=== PATIENT | female | born 1995 | race Caucasian/White ===

== ENCOUNTER 2022-06-24 10:49 | Emergency (ER) | payer MEDICAID, SELFPAY ==
[2022-06-24 10:50] VITALS: BP 112/71; PULSE 75; RESP 18; TEMP 36.4; O2SAT 97; BMI 46.3
--- NOTE | 2022-06-24 11:28 | US_ITS ---
STUDY: ULTRASOUND BREAST - RIGHT REASON FOR EXAM: Female, 26 years old. Cellulitis. Pain. TECHNIQUE: Axial and longitudinal images of the RIGHT breast were performed with a high resolution ultrasound transducer. # OF IMAGES: 38 COMPARISON: None. FINDINGS: RIGHT Breast: Extremely edematous parenchyma with multiple lucencies in the palpable region. Largest area of involvement is at the 2 o''clock position 4 cm from the nipple and measures 3.1 cm x 4.8 cm x 2.2 cm. Findings are compatible with breast abscess. Repeat right breast ultrasound after antibiotic therapy recommended. US/Breast Limited Unilateral IMPRESSION: Findings compatible with breast abscess. Repeat breast ultrasound in 4-6 weeks after antibiotic therapy would be appropriate. ASSESSMENT CATEGORY: BIRADS Category 3: Probably Benign - Short-Interval Follow-up Suggested. A letter regarding these results will be sent to the patient by the facility within 30 days. Electronically Signed: Alexandro Marquez, at 12:15 EDT ,
[2022-06-24] MEDS: Ibuprofen 600 MG Tablet PO (11:35)
--- NOTE | 2022-06-24 13:58 | ED.RN ---
Pt. requested to leave as she needs to get her child off the bus. pt. states she will absolutely follow up with surgery outpatient or take any antibiotics prescribed. Dr. Reed notified.
--- NOTE | 2022-06-24 14:01 | EDS_ITS ---
HPI History of Present Illness Chief Complaint: Cellulitis Informant: patient Narrative Narrative: Patient is a 26-year-old female presenting with pain, redness and swelling to her right breast. She was seen at an [facility] facility where she was diagnosed with cellulitis versus mass and put on doxycycline. She has been on for 4 days. She notes the redness has gotten smaller however it is now darker and more painful at the bottom aspect. She feels like she is getting worse. She denies any history of abscesses, cellulitis or MRSA. She is not currently lactating. She denies any fever or chills. In addition she is on day 3 of genital herpes outbreak. She states she is usually prescribed acyclovir but does not have any currently and would like some. No other complaints at this time. She does have a maternal aunt with a history of breast cancer. [facility] Medical History Acute lateral meniscus tear of right knee Cholecystectomy planned Tonsillectomy planned Home Medications acyclovir 400 mg tablet ea PO 05/29/22 [History Last Taken Unknown] cranberry 400 mg capsule 400 mg PO DAILY 05/29/22 [History Last Taken Unknown] insulin aspart U-100 100 unit/mL (3 mL) subcutaneous pen (Novolog Flexpen U-100 Insulin aspart) ml subcut 05/29/22 [History Last Taken Unknown] insulin glargine 100 unit/mL (3 mL) subcutaneous pen (Lantus Solostar U-100 Insulin) unit subcut 05/29/22 [History Last Taken Unknown] levothyroxine 175 mcg tablet 25 mcg PO 05/29/22 [History Last Taken Unknown] lisinopril 2.5 mg tablet tablet PO 05/29/22 [History Last Taken Unknown] cephalexin 500 mg capsule 500 mg PO Q6 #28 caps 06/24/22 [Rx Last Taken Unknown] sulfamethoxazole 800 mg-trimethoprim 160 mg tablet (Bactrim DS) 1 tab PO Q12H #14 tabs 06/24/22 [Rx Last Taken Unknown] valacyclovir 500 mg tablet 500 mg PO BID 3 days #6 tabs 06/24/22 [Rx Last Taken Unknown] Allergy/AdvReac Type Severity Reaction Status Date / Time amoxicillin Allergy Mild Shortness Verified 06/24/22 10:51 of breath red dye Allergy Mild Hives Verified 06/24/22 10:51 wheat Allergy Mild Other Verified 06/24/22 10:51 Family History Other Arthritis CVA (cerebral vascular accident) Cancer Hypertension Myocardial infarction Surgical History H/O: Social History Smoking Status: Never smoker ROS ROS ED Constitutional Constitutional ED: Denies chills or fever(s) Eyes Eyes: Denies change in vision ENT ENT ED: Denies sore throat Cardiovascular Cardiovascular: Denies chest pain Respiratory/Chest Respiratory/Chest: Denies cough Gastrointestinal Gastrointestinal: Denies abdominal pain, nausea or vomiting Genitourinary Genitourinary ED: Reports dysuria Musculoskeletal Musculoskeletal: Denies arthralgias or myalgias Integumentary Reports rash and other Details: Genital herpes outbreak, redness pain and swelling to the right breast Neurologic Neurologic: Denies paresthesias or weakness Psychiatric Psychiatric: Denies anxiety EXAM Physical Exam Const Vital Signs: 06/24/22 10:50 Temperature 97.5 F L Temperature Source Temporal Pulse Rate 75 Respiratory Rate 18 Blood Pressure 112/71 Blood Pressure Mean 84 Pulse Ox 97 Oxygen Delivery Method Room Air Positive well nourished and well developed General Appearance ED: well developed and NAD HEENT Reports moist mucous membranes Eyes PERRL and EOMs intact bilaterally Neck supple Chest Wall Chest Narrative: Approximately 4 cm x 4 cm area of erythema, tenderness and induration of the right upper medial quadrant of the breast approximately 1 cm above the nipple. There is some associated nipple retraction with it. No obvious fluctuance or drainage appreciated. No associated lymphangitic streaking. It is warm and tender to the touch. No drainage from the nipple appreciated. Resp normal respiratory effort and clear to auscultation bilaterally Cardio regular rate, regular rhythm and no murmurs GI normal to inspection, nondistended, normoactive bowel sounds and non-tender Narrative: Deferred Extremity normal to inspection Neuro oriented x3 Sensorium / Orientation: alert Motor Exam: Negative for general weakness Psych mental status grossly normal Skin Skin Narrative: See above, erythema warmth and tenderness to the right breast MDM MDM MDM Narrative Medical decision making narrative: Patient is evaluated for worsening right breast pain. She is already on a course of antibiotics. Breast ultrasound obtained which does show a breast abscess. Case discussed with Dr. Lilly, surgery on-call. He is planning to come down after his current operation. Patient is agreeable but then states she has to leave to get her child off the bus. I contacted Dr. Lilly who will try to follow-up with her outpatient. Patient is switched from doxycycline to Bactrim and Keflex. She is also given Valtrex for her herpes outbreak. She is instructed to alternate ibuprofen and Tylenol at home for discomfort and pain. Patient verbalized agreement understand this plan. She will return the [facility] room if she has any further concerns. Discharged home in stable condition. Radiography Diagnostic Testing: Clinical Impression(s) from Imaging Studies Breast Ultrasound 06/24/22 11:28 IMPRESSION: Findings compatible with breast abscess. Repeat breast ultrasound in 4-6 weeks after antibiotic therapy would be appropriate. ASSESSMENT CATEGORY: BIRADS Category 3: Probably Benign - Short-Interval Follow-up Suggested. A letter regarding these results will be sent to the patient by the facility within 30 days. Electronically Signed: Alexandro Marquez, at 12:15 EDT , Discharge Plan Triage Chief Complaint: Cellulitis ED Provider: Jennifer Reed Dx/Rx/DC Orders Clinical Impression: Abscess of breast, right, Genital HSV Instructions: ED Abscess Antibiotic Treatment Only, ED Herpes Genitalis, Hsv: Type Ii Prescriptions: New sulfamethoxazole-trimethoprim [Bactrim DS] 800-160 mg tablet 1 tab PO Q12H Qty: 14 0RF cephalexin 500 mg capsule 500 mg PO Q6 Qty: 28 0RF valacyclovir 500 mg tablet 500 mg PO BID 3 Days Qty: 6 0RF No Action lisinopril 2.5 mg tablet PO insulin aspart U-100 [Novolog Flexpen U-100 Insulin] 100 unit/mL (3 mL) insulin pen subcut Label Comments: inject 5 units subcutaneously three times a day before meals insulin glargine [Lantus Solostar U-100 Insulin] 100 unit/mL (3 mL) insulin pen subcut cranberry 400 mg capsule 400 mg PO DAILY Rx Instructions: administer with a meal levothyroxine 175 mcg tablet 25 mcg PO Label Comments: take 1 tablet by mouth once daily acyclovir 400 mg tablet PO Label Comments: take 1 tablet by mouth every 12 hours Primary Care Provider: Ivan Ramsey NP Referrals: Kwadwo Lilly MD [Med Staff - Active Staff] - As soon as possible Ivan Ramsey NP, [employer] [Primary Care Provider] - Activity Restrictions/Additional Instructions: Please call the surgeon office as soon as possible for follow-up for this breast abscess. Likely will need drainage. Stop taking the doxycycline and start taking the new medications prescribed today. Return to the emergency room if you have worsening symptoms, fevers or any other concerns. Alternate ibuprofen and Tylenol for pain. Disposition Disposition: Home, Self Care
== END 2022-06-24 14:10 | disposition home or self-care (01) ==
PROVIDERS: Emergency Provider Emergency Medicine; PCP Nurse Practitioner Primary Care; Visit Provider Emergency Medicine
DX: N61.1 Abscess of the breast and nipple (principal); A60.09 Herpesviral infection of other urogenital tract; Z79.890 Hormone replacement therapy; Z79.899 Other long term (current) drug therapy
CPT/HCPCS: 76642; 99283

== ENCOUNTER 2022-07-01 15:30 | Outpatient (RCR) | payer OTHER, SELFPAY ==
--- NOTE | 2022-06-04 18:31 | HP.PTEVAL_ITS ---
Patient's Visit Information NOAH CERVANTES is a 26 year old F referred to Physical Therapy by Dr. Nj Bush MD with a diagnosis of R lateral meniscus tear. Date of Evaluation: 06/04/22 Physical Therapist: Sumanth Wilkins DPT - Visit Plan Frequency: 2-3x /Week Duration: 4-6 Weeks Plan: Start with ROM including nustep/bike. Quad/glute/HS activation. Progress to CKC exercises as tolerated. Progress HEP. - Subjective Pt. is here today for her initial evaluation with diagnosis of Acute lateral meniscus tear of R knee. 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 She has had pain since. She has had an MRI, with suspected horizontal tear of the lateral meniscus. Initial injury was on 03/17/22. Pt. has done some light exercises and has trial ice and heat. She did go back to work on light duty where she said she was using a wheel chair, but was in a lot of pain the next day and had to call off. She has been off work since . Increases pain: standing, walking, squatting, stairs, and is having trouble sleeping. She reports being off her leg does help, but does not take away her pain. Pt. reports trying to walk at home, but can only walk about 1 mile per day and has to struggle through this. She denies N/T in either LE. She is hopeful to reduce symptoms in order to get back to all recreational and work activities without limitations. - Pain R knee Pain Intensity (Out of 10): 5 Pain Intensity Range: 3, 8 Comment: R lateral joint line - Objective POSTURE: Pt. has increased wt. shift to L side in stance, lacks TKE during stance phase of LLE. Pt. is able to correct, but reports increased pain when doing so. PALPATION: pt. has slight edema of RLE, but non pitting. No calf pain. She does report increased tenderness at lateral joint line and posterior lateral aspect of popliteal fossa. No quad or HS pain. No patellar pain noted. NEURO: normal sensation and normal distal LE DTR. Pt. is able to rise on heels and toes, but pena report increased R knee pain. ROM: L knee 0-0-129deg. R knee: active: 0-4-86deg. PROM: 0-0-95deg. Pt. did have increased pain with over pressures into both extension and flexion this date. Pt. has tight B HS noted. Normal hip ROM otherwise. MMT: LLE: ankle: DF 16#, PF 48#; knee: ext 34#, flexion 26#; hip: flexion 18#, abd 14#, ext 21#. RLE: ankle: DF 13# mild increase NW, PF 35# mild increase NW: knee: ext 13# increase in symptoms; flexion 15# increase in symptoms: hip: flexion 10# increase in symptoms, abd 4# increase in symptoms, ext 18# mild increase in symptoms. Core strength- poor. GAIT: Pt. ambulates without AD, but has marked antalgic pattern during R stance phase with decreased L step length and attempts to get off RLE quickly. Increased lateral wt. shifting noted as well. STAIRS: Step to pattern loading LLE only with use of BHR. Pt. attempted to use RLE, but has increased pain and had to refrain. - Balance/Special Test Scores Lower Extremity Functional Score: 36 - Goals Goal 1:: LTG: Pt. to be I with HEP for LE ROM and strengthening. Goal Time Frame: 4-6 Weeks Goal 2:: STG: Pt. to be able to ambulate with normal gait pattern with 0-2/10 pain in R knee. Goal Time Frame: 2-4 Weeks Goal 3:: STG: Pt. to have increased R knee ROM to 0-0-125deg without increase in symptoms. Goal Time Frame: 2-4 Weeks Goal 4:: LTG: Pt. to have increased RLE strength by at least 80% of of LLE throughout effected musculature. Goal Time Frame: 4-6 Weeks Goal 5:: LTG: pt. to negotiate 1 flight of steps with reciprocal pattern without increase in symptoms with use of 1 HR. Goal Time Frame: 4-6 Weeks - Rehabilitation Potential Physical Therapy Diagnosis: Pt. has signs and symptoms consistent with R lateral meniscus tear. Pt. has marked hypomobility, weakness, increased pain and difficulty with walking. Pt. would benefit from PT to address her ROM and work on LE strengthening to increase stability with all functional mobility. Rehabilitation Potential: Good - Anticipated Interventions Patient/Client Instruction: Educate patient on: Condition, Plan of Care, Risk Factors, Benefits of Fitness Program For the Purpose of:: To foster healthy habits, To improve decision making, To facilitate caregiver knowledge, To improve self management, To prevent re- injury, To improve ability to perform tasks related to life management, To improve tolerance to ADL's Therapeutic Exercise to Include: Strength training, Power training, Endurance training, Coordination, Agility training, Body mechanics, Postural training, Flexibilty training, Gait and locomotor training, Passive ROM, Active ROM, Dynamic Lumbar Stabilization For the Purpose of:: To decrease pain, To decrease swelling/inflammation, To increase ROM, To improve nutrient delivery to tissue, To increase oxygenation perfusion, To improve muscle performance and motor function, To improve ability to perform ADL's, To improve gait and locomotor functions, To improve health of tissue, To decrease soft tissue restriction, To increase flexibility/ROM, To improve endurance TENS: Yes Cryotherapy (ice pack, ice massage): Yes For the Purpose of:: To decrease pain, To decrease swelling/inflammation, To increase ROM Thank you for the opportunity to evaluate your patient. For Medicare and Medicare HMO plans, please review the plan of care and approve it. It will need to be FAXED BACK to us at [phone] for Medicare purposes. For Medicare only, by signing this I certify the plan of care. Please let me know if there are questions or concerns regarding this plan of care. Physician Signature: Date:
--- NOTE | 2022-07-11 14:39 | HP.PTDCNRP_ITS ---
NOAH CERVANTES was seen in my office for initial evaluation on 06/04/22. The following Plan of Care was established for this patient: Initial Frequency: 2-3x /Week Initial Duration: 4-6 Weeks Patient/Client Instruction: Educate patient on: Condition, Plan of Care, Risk Factors, Benefits of Fitness Program For the Purpose of:: To foster healthy habits, To improve decision making, To facilitate caregiver knowledge, To improve self management, To prevent re- injury, To improve ability to perform tasks related to life management, To improve tolerance to ADL's Therapeutic Exercise to Include: Strength training, Power training, Endurance training, Coordination, Agility training, Body mechanics, Postural training, Flexibilty training, Gait and locomotor training, Passive ROM, Active ROM, Dynamic Lumbar Stabilization For the Purpose of:: To decrease pain, To decrease swelling/inflammation, To increase ROM, To improve nutrient delivery to tissue, To increase oxygenation perfusion, To improve muscle performance and motor function, To improve ability to perform ADL's, To improve gait and locomotor functions, To improve health of tissue, To decrease soft tissue restriction, To increase flexibility/ROM, To improve endurance TENS: Yes Cryotherapy (ice pack, ice massage): Yes For the Purpose of:: To decrease pain, To decrease swelling/inflammation, To increase ROM This patient was last seen in our office 07/01/22. Pertinent comments regarding their Physical therapy will appear below: Pt. was seen for her knee pain in PT. She was treated with focus on regaining her motion and progressing stability. She did no show and cancel several appointment. She had to cancel today and due to her C9 running out, I am DCing back to physician at this point in time. At this point I will be discontinuing this patient from physical therapy. I would be happy to see this patient again in the future if found appropriate by the physician. Thank you! Sumanth Wilkins, DPT Balance/Gait/Functional tests - Balance/Special Test Scores Lower Extremity Functional Score: 36
== END 2022-07-01 19:00 | disposition home or self-care (01) ==
LOC: PT 15:30
PROVIDERS: PCP Nurse Practitioner Primary Care; Referring Provider Orthopaedic Surgery Sports Medicine; Visit Provider Orthopaedic Surgery Sports Medicine
DX: S83.281D Other tear of lateral meniscus, current injury, right knee, subsequent encounter (principal); M94.8X6 Other specified disorders of cartilage, lower leg
CPT/HCPCS: 97110; 97161

== ENCOUNTER → 2022-07-02 | Outpatient (CLI) | payer MEDICAID, SELFPAY | END | disposition home or self-care (01) | LOC: LABSPEC 16:00 | PROVIDERS: PCP Nurse Practitioner Primary Care; Referring Provider Surgery; Visit Provider Surgery | DX: N61.1 Abscess of the breast and nipple (principal) | CPT/HCPCS: 87070; 87075; 87205 ==

== ENCOUNTER 2022-07-05 20:07 | Emergency (ER) | payer MEDICAID, SELFPAY ==
[2022-07-05 20:08] VITALS: BP 118/71; PULSE 91; RESP 18; TEMP 36; O2SAT 97; BMI 46.3
--- NOTE | 2022-07-05 20:56 | EDS_ITS ---
HPI History of Present Illness Chief Complaint: Abscess Onset/Context/Timing Onset: Today Context: Gradual Onset Timing: Continuous Quality: Sharp Location: Right breast Worsened by: Nothing Relieved by: Nothing Narrative Narrative: Patient presents with rash to the medial aspect of her right breast that began today. Patient states she had a recent breast biopsy. Patient states she was on antibiotics after that and completed them. Patient states she has not taken any antibiotics for the past couple days. Patient noted some redness to the medial aspect of her right breast. Patient denies any fevers or chills. Patient denies any discharge or drainage. Patient denies any chest pain or shortness of breath. [facility] Medical History Acute lateral meniscus tear of right knee Cholecystectomy planned Tonsillectomy planned Home Medications cranberry 400 mg capsule 400 mg PO DAILY 05/29/22 [History Last Taken Unknown] insulin aspart U-100 100 unit/mL (3 mL) subcutaneous pen (Novolog Flexpen U-100 Insulin aspart) ml subcut 05/29/22 [History Last Taken Unknown] insulin glargine 100 unit/mL (3 mL) subcutaneous pen (Lantus Solostar U-100 Insulin) unit subcut 05/29/22 [History Last Taken Unknown] lisinopril 2.5 mg tablet tablet PO 05/29/22 [History Last Taken Unknown] valacyclovir 500 mg tablet 500 mg PO BID 3 days #6 tabs 06/24/22 [Rx Last Taken Unknown] levothyroxine 100 mcg tablet (Synthroid) 200 mcg PO DAILY 07/02/22 [History Last Taken Unknown] metformin 1,000 mg tablet 1,000 mg PO DAILY 07/02/22 [History Last Taken Unknown] pravastatin 10 mg tablet 10 mg PO DAILY 07/02/22 [History Last Taken Unknown] ibuprofen 600 mg tablet 600 mg PO Q8H PRN PRN pain #20 TABLETS 07/05/22 [Rx Last Taken Unknown] sulfamethoxazole 800 mg-trimethoprim 160 mg tablet (Bactrim DS) 1 tab PO Q12H #14 tabs 07/05/22 [Rx Last Taken Unknown] Allergy/AdvReac Type Severity Reaction Status Date / Time amoxicillin Allergy Mild Shortness Verified 07/05/22 20:07 of breath red dye Allergy Mild Hives Verified 07/05/22 20:07 wheat Allergy Mild Other Verified 07/05/22 20:07 Family History Other Arthritis CVA (cerebral vascular accident) Cancer Hypertension Myocardial infarction Surgical History H/O: Social History Smoking Status: Never smoker ROS ROS ED Constitutional Constitutional ED: Denies chills or fever(s) Eyes Eyes: Denies blurry vision or change in vision ENT ENT ED: Denies rhinorrhea or sore throat Cardiovascular Cardiovascular: Denies chest pain or palpitations Respiratory/Chest Respiratory/Chest: Denies cough or dyspnea Gastrointestinal Gastrointestinal: Denies nausea or vomiting Genitourinary Genitourinary ED: Denies dysuria or hematuria Musculoskeletal Musculoskeletal: Denies back pain or neck pain Integumentary Reports rash; Denies abscess Neurologic Neurologic: Denies headache(s) or weakness Allergic/Immunologic Allergic/Immunologic ED: Denies mouth swelling or urticaria EXAM Physical Exam Const Vital Signs: 07/05/22 20:08 Temperature 96.8 F L Temperature Source Temporal Pulse Rate 91 Respiratory Rate 18 Blood Pressure 118/71 Blood Pressure Mean 86 Pulse Ox 97 Oxygen Delivery Method Room Air Positive well nourished and well developed General Appearance ED: well developed and NAD HEENT Reports moist mucous membranes Neck supple and no JVD Neuro oriented x3, CN's II-XII intact bilaterally and no sensory deficits noted Sensorium / Orientation: alert Motor Exam: strength 5/5 throughout Psych mental status grossly normal Skin Skin Narrative: There is an erythematous rash over the medial aspect of the right breast. There is packing in place in the right breast. There is some mild erythema around the packing. There is no active discharge or drainage. There is no fluctuance. There are no vesicles or pustules. MDM MDM MDM Narrative Medical decision making narrative: The rash is consistent with contact dermatitis likely from the tape. Patient was instructed to change to a different tape for her dressings. Patient was given a prescription for Bactrim. Patient was given a dose here. Patient was instructed to follow-up with her surgeon as scheduled. Patient understood and was agreeable with the plan. All questions were answered. Discharge Plan Triage Chief Complaint: Abscess ED Provider: Hong Aragon Dx/Rx/DC Orders Clinical Impression: Contact dermatitis, Breast abscess, Morbid obesity with BMI of 45.0-49.9, adult Instructions: ED Abscess Antibiotic Treatment Only, ED Contact Dermatitis Prescriptions: New ibuprofen 600 mg tablet 600 mg PO Q8H PRN PRN (Reason: pain) Qty: 20 0RF Continued sulfamethoxazole-trimethoprim [Bactrim DS] 800-160 mg tablet 1 tab PO Q12H Qty: 14 0RF No Action lisinopril 2.5 mg tablet PO insulin aspart U-100 [Novolog Flexpen U-100 Insulin] 100 unit/mL (3 mL) insulin pen subcut Label Comments: inject 5 units subcutaneously three times a day before meals insulin glargine [Lantus Solostar U-100 Insulin] 100 unit/mL (3 mL) insulin pen subcut cranberry 400 mg capsule 400 mg PO DAILY Rx Instructions: administer with a meal pravastatin 10 mg tablet 10 mg PO DAILY levothyroxine [Synthroid] 100 mcg tablet 200 mcg PO DAILY metformin 1,000 mg tablet 1,000 mg PO DAILY valacyclovir 500 mg tablet 500 mg PO BID 3 Days Qty: 6 0RF Primary Care Provider: Ivan Ramsey NP Referrals: Ivan Ramsey NP, [employer] ASSISTANT-[facility] [Primary Care Provider] - 3-5 Days Disposition Disposition: Home, Self Care
== END 2022-07-05 21:06 | disposition home or self-care (01) ==
PROVIDERS: Emergency Provider Emergency Medicine; PCP Nurse Practitioner Primary Care; Visit Provider Emergency Medicine
DX: L25.9 Unspecified contact dermatitis, unspecified cause (principal); E66.01 Morbid (severe) obesity due to excess calories; Z68.42 Body mass index [BMI] 45.0-49.9, adult; N61.1 Abscess of the breast and nipple
CPT/HCPCS: 99282

== ENCOUNTER 2023-03-13 16:38 | Emergency (ER) | payer MEDICAID, SELFPAY ==
[2023-03-13 16:39] VITALS: BP 117/86; PULSE 100; RESP 19; TEMP 36.6; O2SAT 100; BMI 42.8
[2023-03-13 17:02] LABS: Bedside Glucose 452 mg/dL (74-106)
--- NOTE | 2023-03-13 18:02 | EDS_ITS ---
HPI <BALJEET Wray - Last Filed: 03/13/23 20:09> History of Present Illness Chief Complaint: Hyperglycemia Narrative Narrative: Patient presenting today after being referred here from urgent care due to having a blood glucose level of 470. She reports that she is a type II diabetic and takes metformin and insulin but is not compliant with her metformin. She reports the reason she went to urgent care was for lower back pain that she has had since October. She reports she has been taking ibuprofen and Tylenol without any relief of her symptoms. She denies any bowel/bladder incontinence, saddle paresthesia, urinary symptoms, fever, chills. She reports she fell down several steps in October but denies any recent injury to her back. [facility] <BALJEET Wray - Last Filed: 03/13/23 20:09> [facility] Medical History Acute lateral meniscus tear of right knee Cholecystectomy planned Tonsillectomy planned Home Medications cranberry 400 mg capsule 400 mg PO DAILY 05/29/22 [History Last Taken Unknown] insulin aspart U-100 100 unit/mL (3 mL) subcutaneous pen (Novolog FlexPen U-100 Insulin aspart) ml subcut 05/29/22 [History Last Taken Unknown] insulin glargine 100 unit/mL (3 mL) subcutaneous pen (Lantus Solostar U-100 Insulin) unit subcut 05/29/22 [History Last Taken Unknown] lisinopril 2.5 mg tablet tablet PO 05/29/22 [History Last Taken Unknown] valacyclovir 500 mg tablet 500 mg PO BID 3 days #6 tabs 06/24/22 [Rx Last Taken Unknown] levothyroxine 100 mcg tablet (Synthroid) 200 mcg PO DAILY 07/02/22 [History Last Taken Unknown] metformin 1,000 mg tablet 1,000 mg PO DAILY 07/02/22 [History Last Taken Unknown] pravastatin 10 mg tablet 10 mg PO DAILY 07/02/22 [History Last Taken Unknown] ibuprofen 600 mg tablet 600 mg PO Q8H PRN PRN pain #20 TABLETS 07/05/22 [Rx Last Taken Unknown] sulfamethoxazole 800 mg-trimethoprim 160 mg tablet (Bactrim DS) 1 tab PO Q12H #14 tabs 07/05/22 [Rx Last Taken Unknown] Allergy/AdvReac Type Severity Reaction Status Date / Time amoxicillin Allergy Mild Shortness Verified 07/09/22 14:50 of breath red dye Allergy Mild Hives Verified 07/09/22 14:50 wheat Allergy Mild Other Verified 07/09/22 14:50 Family History Other Arthritis CVA (cerebral vascular accident) Cancer Hypertension Myocardial infarction Surgical History H/O: Social History Smoking Status: Never smoker ROS <BALJEET Wray - Last Filed: 03/13/23 20:09> ROS ED Constitutional Constitutional ED: Denies chills or fever(s) Cardiovascular Cardiovascular: Denies chest pain or palpitations Respiratory/Chest Respiratory/Chest: Denies cough or dyspnea Gastrointestinal Gastrointestinal: Denies abdominal pain, nausea or vomiting Genitourinary Genitourinary ED: Denies dysuria, hematuria or urinary urgency Musculoskeletal Musculoskeletal: Reports back pain; Denies arthralgias or myalgias Integumentary Denies abscess, Abrasions or rash Neurologic Neurologic: Denies weakness EXAM <BALJEET Wray - Last Filed: 03/13/23 20:09> Physical Exam Const Vital Signs: 03/13/23 16:39 03/13/23 17:40 Temperature 97.9 F Temperature Source Temporal Pulse Rate 100 Respiratory Rate 19 H Respiratory Effort Normal Non-Labored Blood Pressure 117/86 H Blood Pressure Mean 96 Pulse Ox 100 Oxygen Delivery Method Room Air Positive well nourished, well developed, obese and no apparent distress General Appearance ED: well developed Nutritional Appearance: obese HEENT Reports normocephalic and head/scalp atraumatic Mouth ED: Yes moist mucous membranes normal Eyes PERRL and EOMs intact bilaterally Neck full ROM and supple Chest Wall inspection of chest normal Resp normal respiratory effort and clear to auscultation bilaterally Cardio regular rate and regular rhythm GI soft to palpation, non-tender, non-distended and no masses Back/Spine normal ROM and normal to inspection Back/Spine Narrative: No midline tenderness, paraspinal tenderness to the left lumbar spine. Extremity normal to inspection and full ROM Neuro oriented x3, CN's II-XII intact bilaterally, moves all extremities, no focal motor deficits and no sensory deficits noted Sensorium / Orientation: awake and alert Psych mental status grossly normal and thought process normal Skin no rashes or lesions noted and no wounds <Dr. Hong Aragon DO - Last Filed: 03/13/23 22:45> Physical Exam Const Vital Signs: 03/13/23 16:39 03/13/23 17:40 Temperature 97.9 F Temperature Source Temporal Pulse Rate 100 Respiratory Rate 19 H Respiratory Effort Normal Non-Labored Blood Pressure 117/86 H Blood Pressure Mean 96 Pulse Ox 100 Oxygen Delivery Method Room Air MDM <BALJEET Wray - Last Filed: 03/13/23 20:09> [facility] MDM Narrative Medical decision making narrative: Patient presenting after being sent over from urgent care due to blood glucose of 470. She went to urgent care due to left lower back pain that she has had for several months. Labs will be obtained to assess her blood glucose to rule out electrolyte abnormality, leukocytosis, anemia, DKA. Acetone is negative, blood glucose is 334, potassium 3.4 WBC 14.4, UA does show increased urine g lucose without any UTI. She has been given a liter of IV fluids. She reports noncompliance with her metformin. I have encouraged her to take this as directed and had a discussion with her on the importance of managing her diabetes. Back pain is consistent with a muscular strain, she does not have any bony tenderness in the lumbar spine. I have considered cauda equina syndrome and spinal abscess but these are unlikely given patient's exam. Do not feel that any imaging is indicated at this time. She is to alternate Tylenol and ibuprofen or Aleve for her back pain. She can also use Salonpas if needed. She will be discharged home in stable condition and is comfortable with plan. Lab Data Attestation: I reviewed the patient's lab results. Labs: Laboratory Results - last 24 hr 03/13/23 03/13/23 03/13/23 16:45 17:50 18:20 WBC 14.4 H RBC 4.81 Hgb 13.2 Hct 40.0 MCV 83.2 MCH 27.4 MCHC 33.0 RDW Std Deviation 38.4 RDW Coeff of Rosemary 12.7 Plt Count 362 MPV 11.5 Immature Gran % (Auto) 0.500 Neut % (Auto) 66.8 Lymph % (Auto) 25.9 [place] % (Auto) 5.3 Eos % (Auto) 0.8 Baso % (Auto) 0.7 Absolute Neuts (auto) 9.6 H Absolute Lymphs (auto) 3.72 Nucleated RBC % 0 Sodium Potassium Chloride Carbon Dioxide Anion Gap BUN Creatinine Estim Creat Clear Calc Est GFR (MDRD) Af Amer Est GFR (MDRD) Non-Af BUN/Creatinine Ratio Glucose Calcium Urine Color Yellow Urine Clarity Clear Urine pH 6.0 Ur Specific [place] 1.010 Urine Protein 15 H Urine Glucose (UA) 1000 H Urine Ketones 5 H Urine Occult Blood 10 H Urine Nitrite Negative Urine Bilirubin Negative Urine Urobilinogen Normal Ur Leukocyte Esterase Negative Urine RBC 0 SEEN Urine WBC 0 SEEN Ur Squamous Epith Cells 0 SEEN Urine Bacteria 0 SEEN Urine Mucus 0 SEEN Acetone Level POC Glucose 452 H* 03/13/23 03/13/23 18:20 18:20 WBC RBC Hgb Hct MCV MCH MCHC RDW Std Deviation RDW Coeff of Rosemary Plt Count MPV Immature Gran % (Auto) Neut % (Auto) Lymph % (Auto) [place] % (Auto) Eos % (Auto) Baso % (Auto) Absolute Neuts (auto) Absolute Lymphs (auto) Nucleated RBC % Sodium 139 Potassium 3.4 L Chloride 108 H Carbon Dioxide 21.0 Anion Gap 10 BUN 6 L Creatinine 0.81 Estim Creat Clear Calc 83.24 Est GFR (MDRD) Af Amer 110 Est GFR (MDRD) Non-Af 91 BUN/Creatinine Ratio 7.4 L Glucose 334 H Calcium 9.1 Urine Color Urine Clarity Urine pH Ur Specific [place] Urine Protein Urine Glucose (UA) Urine Ketones Urine Occult Blood Urine Nitrite Urine Bilirubin Urine Urobilinogen Ur Leukocyte Esterase Urine RBC Urine WBC Ur Squamous Epith Cells Urine Bacteria Urine Mucus Acetone Level NEGATIVE POC Glucose <Dr. Hong Aragon, DO - Last Filed: 03/13/23 22:45> [facility] Lab Data Labs: Laboratory Results - last 24 hr 03/13/23 03/13/23 03/13/23 16:45 17:50 18:20 WBC 14.4 H RBC 4.81 Hgb 13.2 Hct 40.0 MCV 83.2 MCH 27.4 MCHC 33.0 RDW Std Deviation 38.4 RDW Coeff of Rosemary 12.7 Plt Count 362 MPV 11.5 Immature Gran % (Auto) 0.500 Neut % (Auto) 66.8 Lymph % (Auto) 25.9 [place] % (Auto) 5.3 Eos % (Auto) 0.8 Baso % (Auto) 0.7 Absolute Neuts (auto) 9.6 H Absolute Lymphs (auto) 3.72 Nucleated RBC % 0 Sodium Potassium Chloride Carbon Dioxide Anion Gap BUN Creatinine Estim Creat Clear Calc Est GFR (MDRD) Af Amer Est GFR (MDRD) Non-Af BUN/Creatinine Ratio Glucose Calcium Urine Color Yellow Urine Clarity Clear Urine pH 6.0 Ur Specific [place] 1.010 Urine Protein 15 H Urine Glucose (UA) 1000 H Urine Ketones 5 H Urine Occult Blood 10 H Urine Nitrite Negative Urine Bilirubin Negative Urine Urobilinogen Normal Ur Leukocyte Esterase Negative Urine RBC 0 SEEN Urine WBC 0 SEEN Ur Squamous Epith Cells 0 SEEN Urine Bacteria 0 SEEN Urine Mucus 0 SEEN Acetone Level POC Glucose 452 H* 03/13/23 03/13/23 18:20 18:20 WBC RBC Hgb Hct MCV MCH MCHC RDW Std Deviation RDW Coeff of Rosemary Plt Count MPV Immature Gran % (Auto) Neut % (Auto) Lymph % (Auto) [place] % (Auto) Eos % (Auto) Baso % (Auto) Absolute Neuts (auto) Absolute Lymphs (auto) Nucleated RBC % Sodium 139 Potassium 3.4 L Chloride 108 H Carbon Dioxide 21.0 Anion Gap 10 BUN 6 L Creatinine 0.81 Estim Creat Clear Calc 83.24 Est GFR (MDRD) Af Amer 110 Est GFR (MDRD) Non-Af 91 BUN/Creatinine Ratio 7.4 L Glucose 334 H Calcium 9.1 Urine Color Urine Clarity Urine pH Ur Specific [place] Urine Protein Urine Glucose (UA) Urine Ketones Urine Occult Blood Urine Nitrite Urine Bilirubin Urine Urobilinogen Ur Leukocyte Esterase Urine RBC Urine WBC Ur Squamous Epith Cells Urine Bacteria Urine Mucus Acetone Level NEGATIVE POC Glucose Treatment and Re-Evaluation :: I have personally performed a face to face assessment of the patient and have reviewed the ALONZO Note. I performed a substantive portion of the visit including all aspects of the following. My ledesma findings include: History: Patient presents with elevated blood sugars that were noticed today. Patient went to urgent care today for evaluation of her back pain. Patient states that they noticed her blood sugar was elevated there. Patient was then referred to the emergency department. Patient denies any polyuria or polydipsia. Patient denies any fevers or chills. Patient denies any nausea or vomiting. Exam: Vital signs are stable. Patient is afebrile. Patient is in no acute distress. Oral mucosa is pink and moist. Neck is supple. Trachea is midline. There is no JVD. Heart was regular rate and rhythm. Lungs are clear and equal bilaterally. Abdomen is soft. Bowel sounds are normal. There is no tenderness. Cranial nerves II through XII are intact. There are no focal motor or sensory deficits noted. Medical Decision Making: Differential diagnosis includes DKA, hyperosmolar hyperglycemic state, and uncontrolled diabetes. Patient was given IV fluids. CBC will be obtained to assess for leukocytosis and anemia. Basic metabolic profile will be obtained to assess for electrolyte abnormality, hyperglycemia, and renal function. Urinalysis will be obtained to assess for urinary tract infection and glucosuria. CBC was reviewed. There is a mild leukocytosis of 14.4. The remainder is within normal limits. Basic metabolic profile was reviewed. There is a glucose of 334. CO2 was normal. Anion gap is normal. Urinalysis was reviewed. There is no evidence of urinary tract infection. Glucose was 1000. Serum acetone was reviewed and was negative. Patient was advised of her findings. Patient was instructed to drink plenty of fluids. Patient was instructed to follow-up with her primary care physician in 5 to 7 days. Patient was instructed to continue her metformin and insulin as previously prescribed. Patient understood and was agreeable with the plan. All questions were answered. Discharge Plan Triage Chief Complaint: Hyperglycemia ED Midlevel Provider: Caitlin Zuniga ED Provider: Hong Aragon Dx/Rx/DC Orders Clinical Impression: Diabetes, Hyperglycemia, Low back strain Instructions: ED Back Sprain/Strain, ED Diabetic Hyperglycemia Prescriptions: No Action lisinopril 2.5 mg tablet PO insulin aspart U-100 [Novolog FlexPen U-100 Insulin] 100 unit/mL (3 mL) insulin pen subcut Label Comments: inject 5 units subcutaneously three times a day before meals insulin glargine [Lantus Solostar U-100 Insulin] 100 unit/mL (3 mL) insulin pen subcut cranberry 400 mg capsule 400 mg PO DAILY Rx Instructions: administer with a meal pravastatin 10 mg tablet 10 mg PO DAILY levothyroxine [Synthroid] 100 mcg tablet 200 mcg PO DAILY metformin 1,000 mg tablet 1,000 mg PO DAILY valacyclovir 500 mg tablet 500 mg PO BID 3 Days Qty: 6 0RF ibuprofen 600 mg tablet 600 mg PO Q8H PRN PRN (Reason: pain) Qty: 20 0RF sulfamethoxazole-trimethoprim [Bactrim DS] 800-160 mg tablet 1 tab PO Q12H Qty: 14 0RF Primary Care Provider: Ivan Ramsey NP Referrals: Care Physician,No Primary [Non-Staff] - Activity Restrictions/Additional Instructions: Please follow-up with your PCP and return for any worsening of symptoms. You can try taking Aleve, Tylenol for your back pain. Disposition Disposition: Home, Self Care Discharge Date/Time: 03/13/23 20:04
[2023-03-13 18:09] LABS: Bacteria 0 SEEN /hpf (None Seen); Mucous, Urine 0 SEEN /hpf (<or=2+); Red Blood Cells-Urine 0 SEEN /hpf (0-5); Squamous Epithelial Cells - UA 0 SEEN /hpf (5-10); White Blood Cells 0 SEEN /hpf (0-5)
[2023-03-13 18:12] LABS: Color, Urine Yellow (Yellow); Glucose, Dipstick 1000 mg/dl (Normal); Ketone-Dipstick 5 mg/dl (Negative); Leukocyte Esterase-Dipstick Negative /ul (Negative); Nitrite-Dipstick Negative (Negative); Occult Blood-Urine 10 /ul (Negative); Protein-Dipstick 15 mg/dl (Negative); Urine Bilirubin Dipstick Negative (Negative); Urine Clarity Clear (Clear); Urine Urobilinogen Normal (Normal)
[2023-03-13 18:28] LABS: Absolute Lymphocyte Count 3.72 X10^3/uL (0.83-4.51); Absolute Neutrophil Count 9.6 X10^3/uL (2.0-7.7); Basophil% 0.7 % (0-1); Eosinophil# 0.12 X10^3/uL; Eosinophils% 0.8 % (0-5); Hemoglobin 13.2 g/dL (12.0-15.0); Lymphocyte # 3.72 X10^3/ul (0.83-4.51); Lymphocyte % 25.9 % (19-41); Mean Corpuscular Hgb 27.4 pg (27.0-32.0); Mean Corpuscular Volume 83.2 fL (81-99); Mean Platelet Vol. 11.5 fl (6.2-12.0); Monocyte# 0.76 X10^3/uL; Monocyte% 5.3 % (0-10); NRBC Flagged by Analyzer 0 % (0-5); Neutrophil # 9.58 X10^3/uL (2.7-7.7); Neutrophil % 66.8 % (47-70); Platelet Count 362 K/mm3 (150-450); RBC Distribution Width CV 12.7 % (11.6-14.6); RBC Distribution Width SD 38.4 fl (35.1-43.9); Red Blood Count 4.81 M/mm3 (4.2-5.4); White Blood Count 14.4 K/mm3 (4.4-11.0)
[2023-03-13 18:40] LABS: Anion Gap 10 (5-15); BUN 6 mg/dL (7-18); BUN/Creat Ratio 7.4 RATIO (10-20); Calcium,Total 9.1 mg/dL (8.5-10.1); Chloride 108 mmol/L (98-107); Creatinine, Serum 0.81 mg/dL (0.55-1.02); EST Glomerular Filtration Rate 91 mL/min (>60); Est Glom Filt Rate - Afr Amer 110 mL/min (>60); Estimated Creatinine Clearance 83.24 ml/min; Glucose 334 mg/dL (74-106); Potassium 3.4 mmol/L (3.5-5.1); Sodium Level 139 mmol/L (136-145)
[2023-03-13] MEDS: 0.9% Normal Saline 1,000 ML 999 ML IV (18:51)
[2023-03-15 12:36] LABS: Bedside Glucose 352 mg/dL (74-106)
== END 2023-03-13 20:04 | disposition home or self-care (01) ==
PROVIDERS: Physician Assistant; Emergency Provider Emergency Medicine; PCP Nurse Practitioner Primary Care; Visit Provider Emergency Medicine
DX: E11.65 Type 2 diabetes mellitus with hyperglycemia (principal); Z79.4 Long term (current) use of insulin; S39.012A Strain of muscle, fascia and tendon of lower back, initial encounter; Z79.84 Long term (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 of oral hypoglycemic drugs; Z91.148 Patient's other noncompliance with medication regimen for other reason; E66.9 Obesity, unspecified; X58.XXXA Exposure to other specified factors, initial encounter
CPT/HCPCS: 80048; 81001; 82009; 82962; 85025; 96360; 99283; J7030; A4216

== ENCOUNTER 2024-02-05 11:40 | Emergency (ER) | payer MEDICAID, SELFPAY ==
[2024-02-05 11:41] VITALS: BP 132/91; PULSE 103; RESP 17; TEMP 35.9; O2SAT 97; BMI 43.4
[2024-02-05 11:43] VITALS: BP 133/66; PULSE 103; RESP 18; TEMP 35.9; O2SAT 97
--- NOTE | 2024-02-05 12:05 | EX.ED.DYSGE1 ---
HPI History of Present Illness Chief Complaint: Wound Check Informant: patient Narrative Narrative: Patient states she had a delivery 1 month ago at [facility] [place], and her incision has been sore ever since. It has not gotten worse. She has had some scant drainage on the dressing according to somebody else who looked at it. She states she was at [facility] recently and discharged 2 days ago I was like go after I refused an IV and treatment. She states her baby is still there, and she is supposed to get herself taking care of. She states she went to urgent care and they thought she had an infection of her incision. She is a diabetic. Her blood sugars been in the 400s although she states she does not feel like it. She states she has insulin and she is been using it. Her appetite has been relatively poor. She denies polyuria polydipsia. She states she has not been on any antibiotics for anything. She states that at [facility] they did a blood test that showed infection. [facility] Medical History (Updated 02/05/24 @ 12:[address] Jorje Alejo MD) Acute lateral meniscus tear of right knee Asthma Cholecystectomy planned Diabetes High blood pressure Thyroid disease Tonsillectomy planned Home Medications cranberry 400 mg capsule 400 mg PO DAILY 05/29/22 [History Last Taken Unknown] insulin aspart U-100 100 unit/mL (3 mL) subcutaneous pen (Novolog FlexPen U-100 Insulin aspart) ml subcut 05/29/22 [History Last Taken Unknown] insulin glargine 100 unit/mL (3 mL) subcutaneous pen (Lantus Solostar U-100 Insulin) unit subcut 05/29/22 [History Last Taken Unknown] lisinopril 2.5 mg tablet tablet PO 05/29/22 [History Last Taken Unknown] valacyclovir 500 mg tablet 500 mg PO BID 3 days #6 tabs 06/24/22 [Rx Last Taken Unknown] levothyroxine 100 mcg tablet (Synthroid) 200 mcg PO DAILY 07/02/22 [History Last Taken Unknown] metformin 1,000 mg tablet 1,000 mg PO DAILY 07/02/22 [History Last Taken Unknown] pravastatin 10 mg tablet 10 mg PO DAILY 07/02/22 [History Last Taken Unknown] ibuprofen 600 mg tablet 600 mg PO Q8H PRN PRN pain #20 TABLETS 07/05/22 [Rx Last Taken Unknown] cephalexin 500 mg capsule 500 mg PO Q6 #40 CAPSULES 02/05/24 [Rx Last Taken Unknown] sulfamethoxazole 800 mg-trimethoprim 160 mg tablet (Bactrim DS) 1 tab PO Q12H #20 tabs 02/05/24 [Rx Last Taken Unknown] Allergy/AdvReac Type Severity Reaction Status Date / Time amoxicillin Allergy Mild Shortness Verified 07/09/22 14:50 of breath red dye Allergy Mild Hives Verified 07/09/22 14:50 wheat Allergy Mild Other Verified 07/09/22 14:50 Family History Other Arthritis CVA (cerebral vascular accident) Cancer Hypertension Myocardial infarction Surgical History H/O: Social History Smoking Status: Never smoker ROS ROS ED Constitutional Constitutional ED: Denies chills or fever(s) Eyes Eyes: Denies change in vision or diplopia ENT ENT ED: Denies rhinorrhea or sore throat Cardiovascular Cardiovascular: Denies chest pain or palpitations Respiratory/Chest Respiratory/Chest: Denies cough or dyspnea Gastrointestinal Gastrointestinal: Denies abdominal pain, diarrhea, nausea or vomiting Genitourinary Genitourinary ED: Denies dysuria or hematuria Musculoskeletal Musculoskeletal: Denies back pain or neck pain Integumentary Reports as per HPI and other Details: Soreness for the past month at incision site ; Denies abscess or rash Neurologic Neurologic: Denies headache(s), paresthesias or weakness Psychiatric Psychiatric: Denies anxiety or suicidal thoughts EXAM Physical Exam Const Vital Signs: 02/05/24 11:41 02/05/24 11:43 Temperature 96.6 F L 96.6 F L Temperature Source Temporal Oral Pulse Rate 103 H 103 H Respiratory Rate 17 18 Blood Pressure 132/91 H 133/66 H Blood Pressure Mean 104 88 Pulse Ox 97 97 Oxygen Delivery Method Room Air Room Air Positive well nourished, well developed and obese Constitutional Narrative: Well-appearing General Appearance ED: well developed and NAD Nutritional Appearance: obese HEENT Reports moist mucous membranes normocephalic and atraumatic Eyes PERRL and EOMs intact bilaterally Neck full ROM and supple Resp normal respiratory effort and clear to auscultation bilaterally Cardio regular rate, regular rhythm and no murmurs GI non-tender and non-distended GI Narrative: Beneath patient's pannus is a well-healed incision. There is no drainage from anywhere and there is no dehiscence. There is very slight erythema, consistent with inflammation from healing as opposed to infection. There is no bright hyperemia. There is no induration. There does not feel like there could be a seroma beneath the incision on the patient's right side of it. Auscultation: normoactive bowel sounds Palpation: soft Back/Spine no CVA tenderness General Back: other FROM Extremity normal to inspection General Extremety ED: Negative for edema, pulses abnormal or tenderness General Extremity: Negative for edema or pulses abnormal Neuro oriented x3, CN's II-XII intact bilaterally and no sensory deficits noted Sensorium / Orientation: awake and alert Motor Exam: strength 5/5 throughout Psych mental status grossly normal Skin no rashes or lesions noted and no wounds MDM MDM MDM Narrative Medical decision making narrative: I used bedside ultrasound and was able to determine that there is a fluid collection behind the area that feels like it clinically. Patient was amenable to needle aspiration, as this would be the best way to evaluate for whether this was infected or not as it did not appear so from the outside. And aspirating the fluid see the procedure note, it does appear to be purulent. Therefore I am placing her on antibiotics to cover both MSSA and MRSA. Culture sent. Blood sugar 386 we will give her a dose of insulin, she stable for discharge on antibiotics to follow-up. She has an appointment. I counseled her regarding trying to keep her blood sugars better controlled which will make it easier for her to heal and less likely to get infections like this. History & Record Review Additional record(s) reviewed:: Prior labs ([facility] 2d ago, WBC 15) Lab Data Attestation: I reviewed the patient's lab results. Labs: Laboratory Results - last 24 hr 02/05/24 12:55 POC Glucose 383 H Procedures Other Procedures Procedure(s): Seroma needle aspiration: After informed consent from the patient, area was prepped with isopropanol followed by Betadine swab, and the pannus was held back by nurse triage assistant. Using ultrasound guidance, there were multiple areas of fluid collection, using 21-gauge needle entered these areas separately through a single hole above the incision. A total of 20 cc of purulent fluid was able to be withdrawn. And putting gentle pressure around the area, a scant amount more including some bloody discharge was able to be expressed. This area was cleansed, dressed with bacitracin and a new ABD pad. Tolerated well no complications. Discharge Plan Triage Chief Complaint: Wound Check ED Provider: Jorje Alejo Dx/Rx/DC Orders Clinical Impression: Infected seroma of section, delivered, complication, Hyperglycemia due to diabetes mellitus Instructions: ED Seroma, Postsurgical Prescriptions: New cephalexin [cephalexin] 500 mg capsule 500 mg PO Q6 Qty: 40 0RF Continued lisinopril 2.5 mg tablet PO insulin aspart U-100 [Novolog FlexPen U-100 Insulin] 100 unit/mL (3 mL) insulin pen subcut Patient Comments: inject 5 units subcutaneously three times a day before meals insulin glargine [Lantus Solostar U-100 Insulin] 100 unit/mL (3 mL) insulin pen subcut cranberry 400 mg capsule 400 mg PO DAILY Rx Instructions: administer with a meal pravastatin 10 mg tablet 10 mg PO DAILY levothyroxine [Synthroid] 100 mcg tablet 200 mcg PO DAILY metformin 1,000 mg tablet 1,000 mg PO DAILY valacyclovir 500 mg tablet 500 mg PO BID 3 Days Qty: 6 0RF ibuprofen 600 mg tablet 600 mg PO Q8H PRN PRN (Reason: pain) Qty: 20 0RF sulfamethoxazole-trimethoprim [Bactrim DS] 800-160 mg tablet 1 tab PO Q12H Qty: 20 0RF Primary Care Provider: Ivan Ramsey NP Referrals: Ivan Ramsey [employer], [employer] [Primary Care Provider] - 3-5 Days if not improving (And/or your REGISTERED DENTAL HYGIENIST as scheduled) Disposition Disposition: Home, Self Care
[2024-02-05] MEDS: Cephalexin 250 MG Capsule 500 MG PO (12:53)
[2024-02-05] MEDS: Smz/Tmp Ds Tablet 1 TABLET PO (12:53)
[2024-02-05 13:18] LABS: Bedside Glucose 383 mg/dL (74-106)
[2024-02-05 13:30] VITALS: BP 124/86; PULSE 71; RESP 15; TEMP 36.4; O2SAT 99
== END 2024-02-05 13:32 | disposition home or self-care (01) ==
PROVIDERS: Emergency Provider Emergency Medicine; PCP Nurse Practitioner Primary Care; Visit Provider Emergency Medicine
DX: O86.09 Infection of obstetric surgical wound, other surgical site (principal); E11.65 Type 2 diabetes mellitus with hyperglycemia; Z79.4 Long term (current) use of insulin; O99.893 Other specified diseases and conditions complicating puerperium; N99.842 Postprocedural seroma of a genitourinary system organ or structure following a genitourinary system procedure; Y83.8 Other surgical procedures as the cause of abnormal reaction of the patient, or of later complication, without mention of misadventure at the time of the procedure; E07.9 Disorder of thyroid, unspecified; I10 Essential (primary) hypertension; Z79.84 Long term (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 of oral hypoglycemic drugs; Z79.899 Other long term (current) drug therapy
CPT/HCPCS: 82962; 87070; 87077; 87186; 87205; 99283

== ENCOUNTER 2024-02-22 16:22 | Emergency (ER) | payer MEDICAID, SELFPAY ==
[2024-02-22] VITALS (8 sets, daily range): BP systolic 101–121; BP diastolic 56–79; PULSE 74–98; RESP 16–19; TEMP 36.3–37.2; O2SAT 97–99; BMI 40.9
--- NOTE | 2024-02-22 16:56 | CT_ITS ---
INDICATION: post op wound. Additional technologist note: Pt here c/o infection at wound that is not healing. Was seen previously for same and placed on 3 antibiotics without improvement. Now c/o N/V and pus coming from site and vagina. Not breast feeding currently d/t antibiotic treatment. EXAMINATION: CT ABDOMEN AND PELVIS with CONTRAST - CT Abdomen And Pelvis W/ Contrast Injection TECHNIQUE: Multiple axial images were obtained of the abdomen and pelvis following administration of IV contrast. Planar reconstructions obtained. A radiation dose optimization technique was used for this scan. RADIATION DOSAGE (If Supplied By Facility): CTDIvol = ( 16.81 ) mGy, DLP = ( 1384.99 ) mGycm IV Contrast dosage and agent: 100 mL Isovue-370 Oral contrast: None. COMPARISON: No pertinent previous studies for comparison.. FINDINGS: AREAS OF INTEREST: 1. There are postoperative changes at consistent with history of anterior abdominal wall incision. There is a small collection of gas density along the healing incision. There is a subtle hypodense area within the LEFT rectus sheath, measuring approximately 1.8 x 1.2 cm in axial dimension and 2.6 cm in superior to inferior dimension. This may represent a small LEFT rectus sheath hematoma versus developing abscess. 2. There is soft tissue stranding and induration associated with the remaining rectus sheath at the level of the incision, and moderate soft tissue stranding extends into the anterior peritoneal soft tissues, consistent with cellulitis. 3. The uterus is anteverted, and a small anteriorly directed defect extends from the endometrial cavity into the myometrium likely representing fluid associated with the anterior uterine scar. Developing a complex inflammatory changes with a scar is a consideration 4. No other free fluid or intra-abdominal identified.. No evidence of free air. REMAINING EXAMINATION: LOWER THORAX: Lungs are clear. Cardiac contour is normal, no pericardial effusion. No coronary vascular calcifications noted. HEPATOBILIARY: Liver: The liver is homogeneous and shows no evidence of focal lesion. There is diffuse hepatic steatosis. Gallbladder: Gallbladder is surgically absent. No ductal dilatation. Pancreas: Pancreas is normal size configuration and density. No mass is noted. Spleen: The spleen is homogeneous and normal in size. . BOWEL: Stomach: The stomach is normal in size configuration, no evidence of focal masses, abnormal calcifications. There is a small hiatal hernia . Bowel: Small and large have normal configuration, no masses or bowel obstruction noted. There is a large amount retained stool throughout the colon. Appendix: The appendix is not positively identified..: GENITOURINARY: Adrenals: Both adrenal glands are normal in size. Kidneys: Kidneys have normal configuration, there is subtle perirenal soft tissue stranding on the RIGHT. Additional subtle decreased contrast enhancement involving the upper pole of the RIGHT kidney. Early or developing pyelonephritis is a consideration. No calcifications or obstructive uropathy. No solid or cystic renal masses.. Bladder: Normal Pelvic organs: The visualized pelvic organs are normal in size and configuration. No masses or adenopathy noted. RETROPERITONEUM: There is normal appearance of the abdominal aorta and inferior vena cava. LYMPH NODES: No evidence of retroperitoneal or para-aortic masses fluid collections or adenopathy. PERITONEAL CAVITY: No ascites noted ANTERIOR ABDOMINAL WALL: As detailed above. Post scar present. BONES AND SOFT TISSUES: The skeleton shows no evidence for fractures or destructive lesions. OTHER: None CT/Abdomen/Pelvis W IV Cont ONLY IMPRESSION: 1. Postoperative changes involving the low anterior abdominal wall consistent with recent . Small collections of air noted within the 2. Subcutaneous soft tissue planes however there is a small low-density collection in the LEFT rectus sheath, measuring approximately 1.8 x 1.2 x 3.6 cm, may represent a small rectus sheath hematoma/seroma versus developing abscess. 3. Moderate soft tissue stranding in the peritoneal fat along the anterior abdominal wall adjacent to the operative bed. Early inflammatory changes and cellulitis are considerations. 4. Anterior uterine scar is present, low density/fluid likely extending into the operative bed and has not matured to a fibrotic scar. Inflammatory or infectious changes associated with the scar are considerations. 5. Abnormal appearance of the upper pole RIGHT kidney, perinephric soft tissue stranding is noted, and subtle diminished contrast enhancement is present involving the RIGHT upper pole, developing pyelonephritis is a consideration. No evidence of solid or cystic masses, calcifications or obstructive uropathy. 6. No free air or intra-abdominal abscesses. 7. Hepatic steatosis. 8. Status post cholecystectomy. 9. Small hiatal hernia. Electronically Signed: Joe Velez MD at 18:41 EDT ,
--- NOTE | 2024-02-22 17:03 | ED.RN ---
pt c/o of pus-like vaginal discharge
[2024-02-22 17:07] LABS: Absolute Lymphocyte Count 2.67 X10^3/uL (0.83-4.51); Absolute Neutrophil Count 9.2 X10^3/uL (2.0-7.7); Basophil# 0.06 X10^3/uL; Basophil% 0.5 % (0-1); Eosinophil# 0.18 X10^3/uL; Eosinophils% 1.4 % (0-5); Hematocrit 29.5 % (37-47); Hemoglobin 9.3 g/dL (12.0-15.0); Lymphocyte # 2.67 X10^3/ul (0.83-4.51); Lymphocyte % 20.5 % (19-41); Mean Corp Hgb Conc 31.5 g/dL (32-36); Mean Corpuscular Hgb 23.1 pg (27.0-32.0); Mean Corpuscular Volume 73.4 fL (81-99); Mean Platelet Vol. 10.4 fl (6.2-12.0); Monocyte# 0.86 X10^3/uL; Monocyte% 6.6 % (0-10); NRBC Flagged by Analyzer 0 % (0-5); Neutrophil # 9.18 X10^3/uL (2.7-7.7); Neutrophil % 70.5 % (47-70); Platelet Count 420 K/mm3 (150-450); RBC Distribution Width SD 39.9 fl (35.1-43.9); Red Blood Count 4.02 M/mm3 (4.2-5.4)
[2024-02-22] MEDS: metroNIDAZOLE 500 MG/100 ML BAG 100 MG IV (17:19)
--- NOTE | 2024-02-22 17:20 | EDS_ITS ---
HPI <BALJEET Wray - Last Filed: 02/22/24 21:36> History of Present Illness Chief Complaint: Wound Check Narrative Narrative: Patient presenting today requesting a wound check. She reports that her C- section incision is infected. She saw the [facility] 02/03/2024 for this and they wanted to admit her for IV antibiotics but she left AMA. She then came here 02/05/2024 and was diagnosed with a seroma, this was aspirated and she was placed on Bactrim and Keflex. She was discharged home and eventually switched from the Keflex to clindamycin after her culture results came back. She saw OB on 02/15 and the incision was packed. She was told to change his packing daily but she was unable to do this at home. She had it changed again on Thursday and has not changed it since. She reports that she is having increased pain on the right side of the incision, a few episodes of nausea and vomiting today, and is now having purulent discharge vaginally. She does have a history of uncontrolled diabetes mellitus. She denies fevers and chills. PFS <BALJEET Wray - Last Filed: 02/22/24 21:36> [facility] Medical History (Updated 02/22/24 @ 21:36 by BALJEET Wray) Asthma Thyroid disease Acute lateral meniscus tear of right knee Cholecystectomy planned Tonsillectomy planned High blood pressure Diabetes Home Medications ?Medication ?Instructions ?Recorded ?Last Taken ?Type insulin aspart U-100 100 unit/mL ml subcut 05/29/22 Unknown History (3 mL) subcutaneous pen (Novolog FlexPen U-100 Insulin aspart) insulin glargine 100 unit/mL (3 unit subcut 05/29/22 Unknown History mL) subcutaneous pen (Lantus Solostar U-100 Insulin) levothyroxine 100 mcg tablet 200 mcg PO DAILY 07/02/22 Unknown History (Synthroid) cephalexin 500 mg capsule 500 mg PO Q6 #40 CAPSULES 02/05/24 Unknown Rx acyclovir 400 mg tablet 400 mg PO BID 02/22/24 Unknown History blood sugar diagnostic (OneTouch 02/22/24 Unknown History Verio test strips) blood-glucose sensor (FreeStyle 02/22/24 Unknown History Yecenia 3 Sensor device) clindamycin HCl 300 mg capsule 300 mg PO Q6H 02/22/24 Unknown History insulin NPH isoph U-100 human 100 unit subcut 02/22/24 Unknown History unit/mL (3 mL) subcutaneous pen (Humulin N NPH U-100 Insulin KwikPen) insulin lispro 100 unit/mL 1 sliding scale dose subcut 02/22/24 Unknown History subcutaneous pen levothyroxine 175 mcg tablet 175 mcg PO DAILY 02/22/24 Unknown History norethindrone (contraceptive) 0.35 0.35 mg PO DAILY 02/22/24 Unknown History mg tablet (Jencycla) Allergy/AdvReac Type Severity Reaction Status Date / Time amoxicillin Allergy Mild Shortness Verified 02/22/24 16:23 of breath red dye Allergy Mild Hives Verified 02/22/24 16:23 wheat Allergy Mild Other Verified 02/22/24 16:23 Family History Other Arthritis CVA (cerebral vascular accident) Cancer Hypertension Myocardial infarction Surgical History H/O: Social History Smoking Status: Never smoker ROS <BALJEET Wray - Last Filed: 02/22/24 21:36> ROS ED Constitutional Constitutional ED: Denies chills or fever(s) Cardiovascular Cardiovascular: Denies chest pain Respiratory/Chest Respiratory/Chest: Denies cough or dyspnea Gastrointestinal Gastrointestinal: Reports abdominal pain, nausea and vomiting; Denies constipation or diarrhea Genitourinary Genitourinary ED: Denies dysuria, hematuria or urinary urgency Musculoskeletal Musculoskeletal: Denies arthralgias or myalgias Integumentary Denies rash Neurologic Neurologic: Denies weakness EXAM <BALJEET Wray - Last Filed: 02/22/24 21:36> Physical Exam Const Vital Signs: 02/22/24 16:23 02/22/24 16:23 02/22/24 17:27 Temperature 97.3 F L 97.3 F L 98.2 F Temperature Source Temporal Temporal Temporal Pulse Rate 98 98 80 Respiratory Rate 18 18 16 Blood Pressure 121/79 H 121/79 H 112/79 Blood Pressure Mean 93 93 90 Pulse Ox 98 98 98 Oxygen Delivery Method Room Air Room Air Room Air 02/22/24 18:00 02/22/24 18:22 02/22/24 19:36 Temperature 98 F 98.5 F Temperature Source Oral Oral Pulse Rate 80 80 77 Respiratory Rate 16 16 18 Blood Pressure 119/74 119/74 113/64 Blood Pressure Mean 89 89 80 Pulse Ox 98 98 99 Oxygen Delivery Method Room Air Room Air Room Air 02/22/24 20:10 02/22/24 22:00 Temperature 98.7 F 98.6 F Temperature Source Oral Oral Pulse Rate 87 74 Respiratory Rate 16 19 H Blood Pressure 101/56 L 103/65 Blood Pressure Mean 71 77 Pulse Ox 97 97 Oxygen Delivery Method Room Air Room Air Positive well nourished, well developed and no apparent distress General Appearance ED: well developed HEENT Reports normocephalic and head/scalp atraumatic Mouth ED: Yes moist mucous membranes normal Eyes PERRL and EOMs intact bilaterally Neck full ROM and supple Chest Wall inspection of chest normal Resp normal respiratory effort and clear to auscultation bilaterally Cardio regular rate and regular rhythm GI soft to palpation, non-tender, non-distended and no masses GI Narrative: Well-healed section scar, no dehiscence or erythema. There is packing in place with active purulent discharge. Back/Spine normal ROM and normal to inspection Extremity normal to inspection and full ROM Neuro oriented x3, CN's II-XII intact bilaterally, moves all extremities, no focal motor deficits and no sensory deficits noted Sensorium / Orientation: awake and alert Psych mental status grossly normal and thought process normal Skin no rashes or lesions noted and no wounds <Dr. Ko Zambrano, DO - Last Filed: 02/22/24 23:46> Physical Exam Const Vital Signs: 02/22/24 16:23 02/22/24 16:23 02/22/24 17:27 Temperature 97.3 F L 97.3 F L 98.2 F Temperature Source Temporal Temporal Temporal Pulse Rate 98 98 80 Respiratory Rate 18 18 16 Blood Pressure 121/79 H 121/79 H 112/79 Blood Pressure Mean 93 93 90 Pulse Ox 98 98 98 Oxygen Delivery Method Room Air Room Air Room Air 02/22/24 18:00 02/22/24 18:22 02/22/24 19:36 Temperature 98 F 98.5 F Temperature Source Oral Oral Pulse Rate 80 80 77 Respiratory Rate 16 16 18 Blood Pressure 119/74 119/74 113/64 Blood Pressure Mean 89 89 80 Pulse Ox 98 98 99 Oxygen Delivery Method Room Air Room Air Room Air 02/22/24 20:10 02/22/24 22:00 Temperature 98.7 F 98.6 F Temperature Source Oral Oral Pulse Rate 87 74 Respiratory Rate 16 19 H Blood Pressure 101/56 L 103/65 Blood Pressure Mean 71 77 Pulse Ox 97 97 Oxygen Delivery Method Room Air Room Air [facility] <BALJEET Wray - Last Filed: 02/22/24 21:36> [facility] Narrative Medical decision making narrative: Patient has a infected section scar. She was seen here on 02/04 and the attending did aspirate the seroma and culture it, this came back positive for Staphylococcus lugdunensis. She was originally on Keflex and Bactrim but was switched from the Bactrim to clindamycin. Saw OB 02/15 and packing was placed, she was supposed to change this daily but did not until Thursday during her follow-up appointment. Today her pain worsened, she is now having purulent vaginal discharge, nausea, and vomiting. The incision itself does not have any erythema, there is active purulent discharge and packing in place. Labs will be obtained as well as imaging of the abdomen and pelvis. She will be given IV fluids, Cipro, Flagyl, and vancomycin. She does have leukocytosis with a WBC of 13, lactic acid is 2.8. CT scan of the abdomen pelvis suggests abscess formation with surrounding cellulitis. Given this is now her third presentation to emergency department I do think she would benefit from admission for IV antibiotics. I did speak with Dr. Hernandez at the [facility] who performed her . She would like patient to be transferred ED to ED, I spoke with Dr. Reyna who is accepting of the transfer. Patient is agreeable to being transferred to [facility] and will be transferred in stable condition. Lab Data Attestation: I reviewed the patient's lab results. Lab results narrative: WBC 13, lactic acid 2.8 Labs: Laboratory Results - last 24 hr 02/22/24 02/22/24 02/22/24 16:57 17:19 20:12 WBC 13.0 H RBC 4.02 L Hgb 9.3 L Hct 29.5 L MCV 73.4 L MCH 23.1 L MCHC 31.5 L RDW Std Deviation 39.9 RDW Coeff of Rosemary 15.0 H Plt Count 420 MPV 10.4 Immature Gran % (Auto) 0.500 Neut % (Auto) 70.5 H Lymph % (Auto) 20.5 Mcleod % (Auto) 6.6 Eos % (Auto) 1.4 Baso % (Auto) 0.5 Absolute Neuts (auto) 9.2 H Absolute Lymphs (auto) 2.67 Nucleated RBC % 0 Sodium 132 L Potassium 3.8 Chloride 99 Carbon Dioxide 25.0 Anion Gap 8 BUN 7 Creatinine 0.73 Estim Creat Clear Calc 134.08 Est GFR (MDRD) Af Amer 122 Est GFR (MDRD) Non-Af 101 BUN/Creatinine Ratio 9.6 L Glucose 375 H Lactic Acid 2.8 H* Calcium 9.5 Urine Color Yellow Urine Clarity Clear Urine pH 5.0 Ur Specific Telford 1.010 Urine Protein 100 H Urine Glucose (UA) 1000 H Urine Ketones Negative Urine Occult Blood 10 H Urine Nitrite Negative Urine Bilirubin Negative Urine Urobilinogen Normal Ur Leukocyte Esterase 500 H Urine RBC 5-10 SEEN Urine WBC 0-5 SEEN Ur Squamous Epith Cells 10-25 SEEN Urine Bacteria 0 SEEN Urine Mucus 0 SEEN Urine Yeast 1+ POC Glucose 02/22/24 02/22/24 22:02 22:25 WBC RBC Hgb Hct MCV MCH MCHC RDW Std Deviation RDW Coeff of Rosemary Plt Count MPV Immature Gran % (Auto) Neut % (Auto) Lymph % (Auto) Mcleod % (Auto) Eos % (Auto) Baso % (Auto) Absolute Neuts (auto) Absolute Lymphs (auto) Nucleated RBC % Sodium Potassium Chloride Carbon Dioxide Anion Gap BUN Creatinine Estim Creat Clear Calc Est GFR (MDRD) Af Amer Est GFR (MDRD) Non-Af BUN/Creatinine Ratio Glucose Lactic Acid 1.7 Calcium Urine Color Urine Clarity Urine pH Ur Specific Telford Urine Protein Urine Glucose (UA) Urine Ketones Urine Occult Blood Urine Nitrite Urine Bilirubin Urine Urobilinogen Ur Leukocyte Esterase Urine RBC Urine WBC Ur Squamous Epith Cells Urine Bacteria Urine Mucus Urine Yeast POC Glucose 272 H Radiography Diagnostic Testing: Clinical Impression(s) from Imaging Studies Abdomen/Pelvis CT 02/22/24 16:56 IMPRESSION: 1. Postoperative changes involving the low anterior abdominal wall consistent with recent . Small collections of air noted within the 2. Subcutaneous soft tissue planes however there is a small low-density collection in the LEFT rectus sheath, measuring approximately 1.8 x 1.2 x 3.6 cm, may represent a small rectus sheath hematoma/seroma versus developing abscess. 3. Moderate soft tissue stranding in the peritoneal fat along the anterior abdominal wall adjacent to the operative bed. Early inflammatory changes and cellulitis are considerations. 4. Anterior uterine scar is present, low density/fluid likely extending into the operative bed and has not matured to a fibrotic scar. Inflammatory or infectious changes associated with the scar are considerations. 5. Abnormal appearance of the upper pole RIGHT kidney, perinephric soft tissue stranding is noted, and subtle diminished contrast enhancement is present involving the RIGHT upper pole, developing pyelonephritis is a consideration. No evidence of solid or cystic masses, calcifications or obstructive uropathy. 6. No free air or intra-abdominal abscesses. 7. Hepatic steatosis. 8. Status post cholecystectomy. 9. Small hiatal hernia. Electronically Signed: Joe Velez MD at 18:41 EDT , <Dr. Ko Zambrano, DO - Last Filed: 02/22/24 23:46> [facility] MDM Narrative Medical decision making narrative: Patient has a infected section scar. She was seen here on 02/04 and the attending did aspirate the seroma and culture it, this came back positive for Staphylococcus lugdunensis. She was originally on Keflex and Bactrim but was switched from the Bactrim to clindamycin. Saw OB 02/15 and packing was placed, she was supposed to change this daily but did not until Thursday during her follow-up appointment. Today her pain worsened, she is now having purulent vaginal discharge, nausea, and vomiting. The incision itself does not have any erythema, there is active purulent discharge and packing in place. Labs will be obtained as well as imaging of the abdomen and pelvis. She will be given IV fluids, Cipro, Flagyl, and vancomycin. She does have leukocytosis with a WBC of 13, lactic acid is 2.8. CT scan of the abdomen pelvis suggests abscess formation with surrounding cellulitis. Given this is now her third presentation to emergency department I do think she would benefit from admission for IV antibiotics. I did speak with Dr. Hernandez at the [facility] who performed her . She would like patient to be transferred ED to ED, I spoke with Dr. Reyna who is accepting of the transfer. Patient is agreeable to being transferred to [facility] and will be transferred in stable condition. ED attending note: I evaluated the patient in conjunction with the ALONZO. I agree with his/her statements and above findings. I have personally performed a face to face assessment of the patient and have reviewed the ALONZO Note. I performed a substantive portion of the visit including all aspects of the following. I personally saw the patient performed chart review, physical exam, reviewed labs, imaging (if obtained), and formulated a treatment and management plan. This note was generated with [employer] dictation software. It may contain incorrect words, spelling, and punctuation that were not noted in review of the chart prior to signing. Lab Data Labs: Laboratory Results - last 24 hr 02/22/24 02/22/24 02/22/24 16:57 17:19 20:12 WBC 13.0 H RBC 4.02 L Hgb 9.3 L Hct 29.5 L MCV 73.4 L MCH 23.1 L MCHC 31.5 L RDW Std Deviation 39.9 RDW Coeff of Rosemary 15.0 H Plt Count 420 MPV 10.4 Immature Gran % (Auto) 0.500 Neut % (Auto) 70.5 H Lymph % (Auto) 20.5 Mcleod % (Auto) 6.6 Eos % (Auto) 1.4 Baso % (Auto) 0.5 Absolute Neuts (auto) 9.2 H Absolute Lymphs (auto) 2.67 Nucleated RBC % 0 Sodium 132 L Potassium 3.8 Chloride 99 Carbon Dioxide 25.0 Anion Gap 8 BUN 7 Creatinine 0.73 Estim Creat Clear Calc 134.08 Est GFR (MDRD) Af Amer 122 Est GFR (MDRD) Non-Af 101 BUN/Creatinine Ratio 9.6 L Glucose 375 H Lactic Acid 2.8 H* Calcium 9.5 Urine Color Yellow Urine Clarity Clear Urine pH 5.0 Ur Specific Telford 1.010 Urine Protein 100 H Urine Glucose (UA) 1000 H Urine Ketones Negative Urine Occult Blood 10 H Urine Nitrite Negative Urine Bilirubin Negative Urine Urobilinogen Normal Ur Leukocyte Esterase 500 H Urine RBC 5-10 SEEN Urine WBC 0-5 SEEN Ur Squamous Epith Cells 10-25 SEEN Urine Bacteria 0 SEEN Urine Mucus 0 SEEN Urine Yeast 1+ POC Glucose 02/22/24 02/22/24 22:02 22:25 WBC RBC Hgb Hct MCV MCH MCHC RDW Std Deviation RDW Coeff of Rosemary Plt Count MPV Immature Gran % (Auto) Neut % (Auto) Lymph % (Auto) Mcleod % (Auto) Eos % (Auto) Baso % (Auto) Absolute Neuts (auto) Absolute Lymphs (auto) Nucleated RBC % Sodium Potassium Chloride Carbon Dioxide Anion Gap BUN Creatinine Estim Creat Clear Calc Est GFR (MDRD) Af Amer Est GFR (MDRD) Non-Af BUN/Creatinine Ratio Glucose Lactic Acid 1.7 Calcium Urine Color Urine Clarity Urine pH Ur Specific Telford Urine Protein Urine Glucose (UA) Urine Ketones Urine Occult Blood Urine Nitrite Urine Bilirubin Urine Urobilinogen Ur Leukocyte Esterase Urine RBC Urine WBC Ur Squamous Epith Cells Urine Bacteria Urine Mucus Urine Yeast POC Glucose 272 H Radiography Diagnostic Testing: Clinical Impression(s) from Imaging Studies Abdomen/Pelvis CT 02/22/24 16:56 IMPRESSION: 1. Postoperative changes involving the low anterior abdominal wall consistent with recent . Small collections of air noted within the 2. Subcutaneous soft tissue planes however there is a small low-density collection in the LEFT rectus sheath, measuring approximately 1.8 x 1.2 x 3.6 cm, may represent a small rectus sheath hematoma/seroma versus developing abscess. 3. Moderate soft tissue stranding in the peritoneal fat along the anterior abdominal wall adjacent to the operative bed. Early inflammatory changes and cellulitis are considerations. 4. Anterior uterine scar is present, low density/fluid likely extending into the operative bed and has not matured to a fibrotic scar. Inflammatory or infectious changes associated with the scar are considerations. 5. Abnormal appearance of the upper pole RIGHT kidney, perinephric soft tissue stranding is noted, and subtle diminished contrast enhancement is present involving the RIGHT upper pole, developing pyelonephritis is a consideration. No evidence of solid or cystic masses, calcifications or obstructive uropathy. 6. No free air or intra-abdominal abscesses. 7. Hepatic steatosis. 8. Status post cholecystectomy. 9. Small hiatal hernia. Electronically Signed: Joe Velez MD at 18:41 EDT , Discharge Plan Triage Chief Complaint: Wound Check ED Midlevel Provider: Caitlin Zuniga ED Provider: Ko Zambrano Dx/Rx/DC Orders Clinical Impression: section wound complications, Postoperative abscess Prescriptions: No Action insulin aspart U-100 [Novolog FlexPen U-100 Insulin] 100 unit/mL (3 mL) insulin pen subcut Patient Comments: inject 5 units subcutaneously three times a day before meals insulin glargine [Lantus Solostar U-100 Insulin] 100 unit/mL (3 mL) insulin pen subcut levothyroxine [Synthroid] 100 mcg tablet 200 mcg PO DAILY cephalexin [cephalexin] 500 mg capsule 500 mg PO Q6 Qty: 40 0RF levothyroxine 175 mcg tablet 175 mcg PO DAILY clindamycin HCl 300 mg capsule 300 mg PO Q6H (DME) OneTouch Verio test strips Strip 1 strip MISCELLANEOUS TID acyclovir 400 mg tablet 400 mg PO BID norethindrone (contraceptive) [Jencycla] 0.35 mg tablet 0.35 mg PO DAILY (DME) FreeStyle Yecenia 3 Sensor Device MISCELLANEOUS UD insulin lispro 100 unit/mL insulin pen 1 sliding scale dose subcut Humulin N NPH Insulin KwikPen 100 unit/mL (3 mL) insulin pen subcut Primary Care Provider: Ivan Ramsey NP Referrals: Ivan Ramsey NP, PRODUCT DESIGN SPECIALIST-C [Primary Care Provider] - Print Language: Panamanian Disposition Disposition: Acute Care Hospital Discharge Location: [facility]
[2024-02-22 17:41] LABS: Anion Gap 8 (5-15); BUN 7 mg/dL (7-18); BUN/Creat Ratio 9.6 RATIO (10-20); Calcium,Total 9.5 mg/dL (8.5-10.1); Chloride 99 mmol/L (98-107); Creatinine, Serum 0.73 mg/dL (0.55-1.02); EST Glomerular Filtration Rate 101 mL/min (>60); Est Glom Filt Rate - Afr Amer 122 mL/min (>60); Estimated Creatinine Clearance 134.08 ml/min; Glucose 375 mg/dL (74-106); Potassium 3.8 mmol/L (3.5-5.1); Sodium Level 132 mmol/L (136-145)
[2024-02-22 18:28] LABS: Lactic Acid 2.8 mmol/L (0.4-1.9)
[2024-02-22] MEDS: Ciprofloxacin 400 MG/200 ML BAG 200 MG IV (18:41)
[2024-02-22 20:18] LABS: Bacteria 0 SEEN /hpf (None Seen); Mucous, Urine 0 SEEN /hpf (<or=2+)
[2024-02-22 20:22] LABS: Color, Urine Yellow (Yellow); Glucose, Dipstick 1000 mg/dl (Normal); Ketone-Dipstick Negative (Negative); Leukocyte Esterase-Dipstick 500 /ul (Negative); Nitrite-Dipstick Negative (Negative); Occult Blood-Urine 10 /ul (Negative); Protein-Dipstick 100 mg/dl (Negative); Urine Bilirubin Dipstick Negative (Negative); Urine Clarity Clear (Clear); Urine Urobilinogen Normal (Normal)
[2024-02-22] MEDS: Vancomycin HCl 1,500 MG in 0.9% Normal Saline (500mL Bag) 500 ML 250 MG IV (20:27)
[2024-02-22] MEDS: 0.9% Normal Saline (1000mL) 1,000 ML 999 ML IV (20:27)
[2024-02-22 21:26] LABS: Reflex Lactate? Y
[2024-02-22 21:31] LABS: White Blood Cells 0-5 SEEN /hpf (0-5)
[2024-02-22 21:32] LABS: Red Blood Cells-Urine 5-10 SEEN /hpf (0-5); Squamous Epithelial Cells - UA 10-25 SEEN /hpf (5-10); Yeast-Urine 1+ /hpf (None Seen)
--- NOTE | 2024-02-22 22:34 | ED.RN ---
This RN attempted to call report twice. Was put on hold for >7 min each time.
[2024-02-22 22:42] LABS: Lactic Acid 1.7 mmol/L (0.4-1.9)
[2024-02-22 22:44] LABS: Bedside Glucose 272 mg/dL (74-106)
[2024-02-23] VITALS: BP 107/65; PULSE 97; RESP 19; TEMP 36.6; O2SAT 98
[2024-02-23 01:00] VITALS: BP 116/80; PULSE 76; RESP 16; TEMP 36.2; O2SAT 96
[2024-02-23 01:39] VITALS: BP 116/80; PULSE 89; RESP 17; TEMP 36.6; O2SAT 98
--- NOTE | 2024-02-23 01:57 | ED.RN ---
This RN called report to Tena at [facility].
== END 2024-02-23 01:57 | disposition short-term general hospital (02) ==
PROVIDERS: Physician Assistant; Emergency Provider Emergency Medicine; PCP Nurse Practitioner Primary Care; Visit Provider Emergency Medicine
DX: O86.02 Infection of obstetric surgical wound, deep incisional site (principal); E11.9 Type 2 diabetes mellitus without complications; R11.2 Nausea with vomiting, unspecified; N89.8 Other specified noninflammatory disorders of vagina; Y83.8 Other surgical procedures as the cause of abnormal reaction of the patient, or of later complication, without mention of misadventure at the time of the procedure
CPT/HCPCS: 74177; 80048; 81001; 82962; 83605; 85025; 96365; 96366; 96367; 99285; J7030; J7040; Q9967; A4216; J0744

== ENCOUNTER 2024-07-23 10:34 | Emergency (ER) | payer MEDICAID, SELFPAY ==
[2024-07-23 10:35] VITALS: BP 123/82; PULSE 94; RESP 16; TEMP 36.5; O2SAT 99; BMI 42.4
--- NOTE | 2024-07-23 10:50 | EX.ED.DYSGE1 ---
HPI History of Present Illness Chief Complaint: Itching Detail of Chief Complaint: Rash Informant: patient and spouse/S.O. Narrative Narrative: Patient presents to the emergency department with complaint of a rash that she noticed 5 days ago. Rash seems to mostly involve her upper extremities. Her daughter recently had [id number]. Patient denies fevers or chills or sweats. She denies any new soaps or detergents or other allergens. She is currently staying at a hotel with significant other however significant other does not have any lesions or rash he has been sleeping in the same bed. Significant other also looked at the mattress and undress and there is no evidence of bedbugs. The rash is itchy and she has at times using hydrocortisone cream to it. [facility] Medical History (Updated 07/23/24 @ 10:[address] Hemalatha Reynaga, DO) Asthma Thyroid disease Acute lateral meniscus tear of right knee Cholecystectomy planned Tonsillectomy planned High blood pressure Diabetes Home Medications ?Medication ?Instructions ?Recorded ?Last Taken ?Type insulin aspart U-100 100 unit/mL ml subcut 05/29/22 Unknown History (3 mL) subcutaneous pen (Novolog FlexPen U-100 Insulin aspart) insulin glargine 100 unit/mL (3 unit subcut 05/29/22 Unknown History mL) subcutaneous pen (Lantus Solostar U-100 Insulin) levothyroxine 100 mcg tablet 200 mcg PO DAILY 07/02/22 Unknown History (Synthroid) cephalexin 500 mg capsule 500 mg PO Q6 #40 CAPSULES 02/05/24 Unknown Rx acyclovir 400 mg tablet 400 mg PO BID 02/22/24 Unknown History blood sugar diagnostic (OneTouch 02/22/24 Unknown History Verio test strips) blood-glucose sensor (FreeStyle 02/22/24 Unknown History Yecenia 3 Sensor device) clindamycin HCl 300 mg capsule 300 mg PO Q6H 02/22/24 Unknown History insulin NPH isoph U-100 human 100 unit subcut 02/22/24 Unknown History unit/mL (3 mL) subcutaneous pen (Humulin N NPH U-100 Insulin KwikPen) insulin lispro 100 unit/mL 1 sliding scale dose subcut 02/22/24 Unknown History subcutaneous pen levothyroxine 175 mcg tablet 175 mcg PO DAILY 02/22/24 Unknown History norethindrone (contraceptive) 0.35 0.35 mg PO DAILY 02/22/24 Unknown History mg tablet (Jencycla) Allergy/AdvReac Type Severity Reaction Status Date / Time amoxicillin Allergy Mild Shortness Verified 02/22/24 16:23 of breath red dye Allergy Mild Hives Verified 02/22/24 16:23 wheat Allergy Mild Other Verified 02/22/24 16:23 Family History Other Arthritis CVA (cerebral vascular accident) Cancer Hypertension Myocardial infarction Surgical History H/O: Social History household members: significant other and children housing: homeless Smoking Status: Never smoker ROS ROS ED Review of Systems ROS Unobtainable: other Constitutional Constitutional ED: Reports lethargy; Denies chills, fever(s), sweats or weight loss Eyes Eyes: Denies blurry vision, change in vision or diplopia ENT ENT ED: Denies rhinorrhea or sore throat Cardiovascular Cardiovascular: Denies chest pain, orthopnea or racing heartbeat Respiratory/Chest Respiratory/Chest: Denies cough, dyspnea, dyspnea on exertion, orthopnea or sputum Gastrointestinal Gastrointestinal: Denies abdominal pain, diarrhea, nausea or vomiting Genitourinary Genitourinary ED: Denies dysuria, hematuria or urinary frequency Musculoskeletal Musculoskeletal: Denies arthralgias, back pain, myalgias or neck pain Integumentary Reports rash; Denies abscess or Abrasions Neurologic Neurologic: Denies headache(s) or weakness Psychiatric Psychiatric: Denies anxiety, depression or suicidal thoughts Endocrine Endocrinology: Denies polydipsia, polyphagia or polyuria Hematologic/Lymphatic Hematologic/Lymphatic: Denies easy bleeding, easy bruising or lymphadenopathy Allergic/Immunologic Allergic/Immunologic ED: Denies mouth swelling, tongue swelling or urticaria EXAM Physical Exam Narrative Exam Narrative: Nontoxic-appearing. Does not appear ill. Const Vital Signs: 07/23/24 10:35 Temperature 97.7 F L Temperature Source Oral Pulse Rate 94 Respiratory Rate 16 Blood Pressure 123/82 H Blood Pressure Mean 95 Pulse Ox 99 Oxygen Delivery Method Room Air Positive well nourished and well developed General Appearance ED: well developed and NAD HEENT Reports TM's clear and moist mucous membranes normocephalic and atraumatic; Negative for trauma or tenderness Tympanic Membrane ED: Yes TM's clear Eyes PERRL and EOMs intact bilaterally General Eye ED: Negative for pale conjunctiva or scleral icterus Neck no lymphadenopathy, supple and no JVD General: Negative for tenderness Chest Wall inspection of chest normal and palpation of chest normal Chest: Negative for tenderness Resp normal respiratory effort and clear to auscultation bilaterally Effort and Inspection: Negative for respiratory distress or pain with movement Auscultation: Negative for rhonchi, wheezes or diminished lung sounds Cardio regular rate, regular rhythm, S1 normal heart sound, S2 normal heart sound and no murmurs Peripheral Pulses: pulses 2+ throughout GI normal to inspection, nondistended, normoactive bowel sounds, soft to palpation, non-tender, non-distended and no masses Back/Spine no CVA tenderness and no thoracic nor lumbar tenderness Extremity normal to inspection General Extremety ED: Negative for edema General Extremity: Negative for edema Neuro oriented x3, CN's II-XII intact bilaterally, no sensory deficits noted and gait normal Sensorium / Orientation: awake, alert, oriented to person, oriented to place and oriented to time Motor Exam: strength 5/5 throughout and strength abnormal Psych mental status grossly normal Skin no wounds Skin Narrative: Patient with a slightly raised erythematous rash involving the upper extremities with 3 lesions on the right upper arm and 5-6 lesions on the left upper extremity. Patient has 3 lesions on the upper abdomen. No petechiae noted over vesicles. Rash is slightly pruritic. There is no involvement of the oral mucosa. No involvement of palms of the hands or the feet. MDM MDM MDM Narrative Medical decision making narrative: Patient with slightly raised erythematous rash involving upper extremities and upper abdomen. Pruritic. The lesions appear slightly inflamed. Etiology unclear but they almost look like bug bites. In the differential would be a viral exanthem as well. Recommended Benadryl for itching. I do not feel she needs any other treatment otherwise. They are advised that if they do note any bedbugs to change living location versus calling an brass plater. Discharge Plan Triage Chief Complaint: Itching ED Provider: Hemalatha Reynaga Dx/Rx/DC Orders Clinical Impression: Rash Instructions: Nonspecific Skin Rash Prescriptions: No Action insulin aspart U-100 [Novolog FlexPen U-100 Insulin] 100 unit/mL (3 mL) insulin pen subcut Patient Comments: inject 5 units subcutaneously three times a day before meals insulin glargine [Lantus Solostar U-100 Insulin] 100 unit/mL (3 mL) insulin pen subcut levothyroxine [Synthroid] 100 mcg tablet 200 mcg PO DAILY cephalexin [cephalexin] 500 mg capsule 500 mg PO Q6 Qty: 40 0RF levothyroxine 175 mcg tablet 175 mcg PO DAILY clindamycin HCl 300 mg capsule 300 mg PO Q6H (DME) OneTouch Verio test strips Strip 1 strip MISCELLANEOUS TID acyclovir 400 mg tablet 400 mg PO BID norethindrone (contraceptive) [Jencycla] 0.35 mg tablet 0.35 mg PO DAILY (DME) FreeStyle Yecenia 3 Sensor Device MISCELLANEOUS UD insulin lispro 100 unit/mL insulin pen 1 sliding scale dose subcut Humulin N NPH Insulin KwikPen 100 unit/mL (3 mL) insulin pen subcut Primary Care Provider: Ivan Ramsey NP Referrals: Ivan Ramsey NP, [employer] [Primary Care Provider] - 5-7 Days Print Language: [place] Disposition Disposition: Home, Self Care
--- OUTSIDE RECORDS SUMMARY | 2024-07-23 10:55 | XMS RPT_ITS | CCD ---
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 Name Role Phone PHYSICIAN, NONE Primary Care Physician Unavailab josé miguel JOHNSON APRN-NEREIDA, TANGELA Primary Care Physician Unavailable Primary Care Provider Unavailchelly e Unavailable Primary Care Provider UnavailPietro Shaikh CNP Primary Care Provider [phone] PHYSICIAN, NONE Primary Care Unavailable MERRITT GONZALEZ DO Attending Unavailable LASHANDA PAYTON DO Attending Unavailable ELIZABETH WEATHERS-NEREIDA, TANGELA Primary Care UnavailDylan BATRES, TANGELA Primary Care Unavailabl e MUSA SOLIS MD Attending Unavail able PHYSICIAN, NONE Primary Care Unavailable ROBERTA SALINAS MD Attending Unavailable JABIER WEEMS Consulting Unavailable BISI WILCOX Attending Unavailable STEPHAN RODRIGUEZ Admitting Unavailable Palomo Isaac RN Unavailable Unavailable TYRELL PIERRE Referring Unavailable TYRELL PIERRE Attending Unavailable TYRELL PIERRE Attending Unavailable MEY ALMANZAR Referring Unavail able TYRELL PIERRE Attending Unavailable Pietro Johnson CNP Primary Care Provider [phone] Palomo Isaac RN Unavailable Unavailable JUAN DAVID DE LEON Attending Unavailable MEY ALMANZAR Attending Unavail able DORY CHOU Attending Unavailable JABIER WEEMS Attending Unavailable JUAN DAVID DE LEON Referring Unavailable HUMPHREY FRYE Attending Unavailable JUAN DAVID DE LEON Attending Unavailable JUAN DAVID DE LEON Referring Unavailable JUAN DAVID DE LEON Referring Unavailable TRUPTI ESTEBAN Referring Unavailab NOLVIA Trejo Attending Unavailable NOLVIA MAN Attending Unavailable JUAN DAVID DE LEON Referring Unavailable HUMPHREY FRYE Attending Unavailable HUMPHREY FRYE Attending Unavailable NOLVIA MAN Attending Unavailable NOLVIA MAN Referring Unavailable BELINDA GARRIDO Attending Unavailable JUAN DAVID DE LEON Attending Unavailable NEYHART BUCK, MEY Referring Unavail able GEOVANI VELASCO Attending Unavailable NILESH DRISCOLL Attending Unavailable JABIER WEEMS Attending Unavailable DORY CHOU Attending Unavailable MOISES, JUAN DAVID Blessing Referring Unavailable BRIGIDO GAXIOLA Referring Unavailable CARLOS SHIN Attending Unavailable SHONNA, ANA Admitting Unavailable GEORGES PALMA B Attending Unavailable MINERVA EUNJI B Admitting Unavailable NEYHART BUCK, MEY Referring Unavail able NEYHART BUCK, MEY Referring Unavail able SELF Referring Unavailable NEYHART BUCK, MEY Attending Unavail able MOISES JUAN DAVID L Referring Unavailable NEYHART BUCK, MEY Attending Unavail able NEYHART BUCK, MEY Referring Unavail able SHONNA, ANA Admitting Unavailable LEMUEL MUÑOZ Referring Unavailable JUAN DAVID DE LEON Attending Unavailable MOISES JUAN DAVID L Referring Unavailable HUMPHREY FRYE Attending Unavailable NEYHART BUCK, MEY Referring Unavail able MOISES, JUAN DAVID L Referring Unavailable MOISES JUAN DAVID L Attending Unavailable MOISES, JUAN DAVID L Referring Unavailable BELINDA GARRIDO Referring Unavailable BRIJESH NAVARRO Referring Unavailable JABIER WEEMS Attending Unavailable TEMITOPE ROBLERO Attending Unavailable MOISES, JUAN DAVID L Referring Unavailable TEMITOPE ROBLERO Referring Unavailable DORY CHOU Attending Unavailable MOISES, JUAN DAVID L Referring Unavailable MOISES, JUAN DAVID L Referring Unavailable JABIER WEEMS Attending Unavailable NEYHART BUCK, MEY Referring Unavail able TRUPTI ESTEBAN Attending Unavailab DOTTIE Gupta Attending Unavailable MOISES, JUAN DAVID L Referring Unavailable LESA BOND Attending Unavailable Pietro Johnson CNP Primary Care Provider Unavaila ble Allergies Allergy Classification Reported Allergen(s) Allergy Type Date of Onset Reaction(s) Facility (20 sources) Amoxicillin; Translations: [amoxicillin] Drug Allergy 9 [facility] (20 sources) Contrast media; Translations: [RED DYE] Allergy to substance 9 [facility] (20 sources) Wheat preparation; Translations: [WHEAT] Drug Allergy 4 Weal (disorder), Rash [facility] (20 sources) Mold Extract; Translations: [MOLD] Drug Allergy 9 Rash [facility] Work Phone: Medications Current Medications Medication Drug Class(es) Dates Sig (Normalized) Sig (Original) acetaminophen 500 mg oral tablet (20 sources) Start: 01-08-2024 take 2 tablets by mouth every six hours as needed acetaminophen (TYLENOL) 500 mg tablet Take 2 tablets by mouth every 6 hours as needed for pain. 30 tablet 01/08/2024 Active Start: 10-24-2021 acetaminophen 500 mg oral tablet Dose : 1,000 mg = 2 tab(s), Oral, TID, PRN pain or fever, 0 Refill(s) Start Date: 10/24/21 Status: Ordered Comment on above: Take 2 tablets by mo [facility] every 6 hours as needed for pain. acyclovir 400 mg oral tablet (20 sources) Herpesvirus Nucleoside Analog DNA Polymerase Inhibitor, Herpes Simplex Virus Nucleoside Analog DNA Polymerase Inhibitor, Herpes Zoster Virus Nucleoside Analog DNA Polymerase Inhibitor Start: 02-16-2024 take 1 tablet by mouth twice daily acyclovir (ZOVIRAX) 400 mg tablet Take 1 tablet by mouth two times a day. 60 tablet 12 02/16/2024 Active Start: 01-09-2024 End: 02-16-2024 take 1 tablet by mouth once daily acyclovir (ZOVIRAX) 400 mg tablet Take 1 tablet by mouth once daily. 30 tablet 1 01/09/2024 02/16/2024 Discontinued Start: 12-28-2023 End: 01-02-2024 acyclovir (ZOVIRAX) 400 mg t ablet Start: 12-22-2023 End: 12-27-2023 take 1 tablet by mouth three times daily acyclovir (ZOVIRAX) 400 mg tablet Take 1 tablet by mouth three times a day for 5 days. 15 tablet 1 12/22/2023 12/27/2023 Start: 07-02-2023 End: 09-30-2023 take 1 tablet by mouth three times daily acyclovir (ZOVIRAX) 800 mg tablet Take 1 tablet by mouth three times daily for 2 days. Take at first signs of outbreak. 6 tablet 0 07/02/2023 07/04/2023 Active Start: 03-27-2023 End: 04-01-2023 take 1 tablet by mouth twice daily acyclovir (ZOVIRAX) 800 mg tablet Take 1 tablet by mouth twice daily for 5 days. 10 tablet 0 03/27/2023 04/01/2023 Active Start: 11-19-2022 End: 11-21-2022 take 1 tablet by mouth three times daily acyclovir (ZOVIRAX) 800 mg tablet Take 1 tablet by mouth three times daily for 2 days. Take at first signs of outbreak. 6 tablet 0 11/19/2022 11/21/2022 Active Start: 02-26-2021 End: 10-10-2023 take 1 tablet by mouth every twelve hours acyclovir (ZOVIRAX) 400 mg tablet Indications: Genital herpes simplex, unspecified site Take 1 tablet by mouth every 12 hours. 60 tablet 11/19/2022 10/10/2023 Discontinued Comment on above: Take 1 tablet by deyanira th every 12 hours. Take 1 tablet by deyanira th three times daily for 2 days. Take at first signs of outbreak. Take 1 tablet by deyanira th twice daily for 5 days. Take 1 tablet by deyanira th three times a day for 5 days. Take 1 tablet by deyanira th five times a day for 5 days. Take 1 tablet by deyanira th once daily. [id number] 200 actuat albuterol 0.09 mg/actuat metered dose inhaler (20 sources) beta2-Adrenergic Agonist Start: 3 take 2 puff(s) by inhalation every four hours as needed for wheezing albuterol HFA (PROVENTIL HFA, VENTOLIN HFA) 90 mcg/actuation inhaler Indications: History of asthma Inhale 2 Puffs as instructed every 4 hours as needed for wheezing/shortness of breath. 1 Each 08/13/2023 Active Comment on above: Inhale 2 Puffs as in structed every 4 hours as needed for wheezing/shortness of breath. aspirin 81 mg chewable tablet (20 sources) Platelet Aggregation Inhibitor, Nonsteroidal Anti-inflammatory Drug Start: End: take 1 tablet by mouth once daily aspirin 81 mg chewable tablet Take 1 tablet by mouth once daily. 180 tablet 0 10/11/2023 04/08/2024 Suspended Comment on above: Take 1 tablet by deyanira th once daily. Blood Pressure Test Kit-Large (QUICK RESPONSE BP MONITOR) (20 sources) Start: Blood Pressure Test Kit-Large (QUICK RESPONSE BP MONITOR) Use as directed 1 Each 12/29/2023 Active Start: 12-29-2023 Blood Pressure Test Kit-Large (QUICK RESPONSE BP MONITOR) Use as directed 1 Each 0 12/29/2023 Suspended Start: 12-29-2023 Blood Pressure Test Kit-Large (QUICK RESPONSE BP MONITOR) Use as directed 1 Each 0 12/29/2023 Active Comment on above: Use as directed Blood-Glucose Meter (BLOOD GLUCOSE MONITORING) monitoring kit (16 sources) Start: 02-02-2024 Blood-Glucose Meter (BLOOD GLUCOSE MONITORING) monitoring kit Use as instructed. 1 Kit 02/02/2024 Active Start: 02-02-2024 Blood-Glucose Meter (BLOOD GLUCOSE MONITORING) monitoring kit Use as instructed. 1 Kit 0 02/02/2024 Suspended Start: 02-02-2024 Blood-Glucose Meter (BLOOD GLUCOSE MONITORING) monitoring kit Use as instructed. 1 Kit 0 02/02/2024 Active Blood-Glucose Sensor (FREEST YLE ELIANE 3 SENSOR) osman (20 sources) Start: 09-14-2023 Blood-Glucose Sensor (FREESTYLE ELIANE 3 SENSOR) osman Use as instructed. 2 Each 5 09/14/2023 Suspended Start: 09-14-2023 Blood-Glucose Sensor (FREESTYLE ELIANE 3 SENSOR) osman Use as instructed. 2 Each 5 09/14/2023 Active Start: 07-21-2023 End: 09-13-2023 Blood-Glucose Sensor (FREEST YLE ELIANE 3 SENSOR) osman Use as instructed. 2 Each 3 07/21/2023 09/13/2023 Discontinued Start: 07-21-2023 Blood-Glucose Sensor (FREESTYLE ELIANE 3 SENSOR) osman Use as instructed. 2 Each 3 07/21/2023 Active Comment on above: Use as instructed. cefdinir 300 mg oral capsule (1 source) Cephalosporin Antibacterial Start: 08-30-20 End: 09-06-20 cefdinir 300 mg oral capsule Dose : 300 mg = 1 cap(s), Oral, q12h, X 7 day(s), # 14 cap(s), 0 Refill(s), 09/06/23 6:34:00 PM EST, 106.8 Start Date: 08/30/23 Stop Date: 09/06/23 Status: Ordered docusate sodium 100 mg oral capsule (20 sources) Start: 01-08-20 take 2 capsules by mouth every twenty-four hours as needed docusate sodium (COLACE) 100 mg capsule Take 2 capsules by mouth at bedtime as needed for constipation. 40 capsule 01/08/2024 Active Comment on above: Take 2 capsules by m out at bedtime as needed for constipation. doxycycline monohydrate 100 mg oral tablet (3 sources) Tetracycline-class Drug Start: 05-03-20 End: 05-10-20 take 1 tablet by mouth twice daily doxycycline monohydrate 100 mg tablet Take 1 tablet by mouth two times a day for 7 days. 14 tablet 0 05/03/2024 05/10/2024 Active Start: 03-31-2023 End: 04-07-2023 take 1 capsule by mouth twice daily doxycycline monohydrate (MONODOX) 100 mg capsule Indications: Infection of lip Take 1 capsule by mouth twice daily for 7 days. 14 capsule 0 03/31/2023 04/07/2023 Active Start: 06-18-2022 End: 06-25-2022 doxycycline monohydrate 100 mg oral tablet Dose : 100 mg = 1 tab(s), Oral, BID, X 7 day(s), # 14 tab(s), 0 Refill(s), 06/25/22 19:07:00 EDT, 119 Start Date: 06/18/22 Stop Date: 06/25/22 Status: Ordered Comment on above: Take 1 capsule by mo [facility] twice daily for 7 days. ibuprofen 600 mg oral tablet (20 sources) Nonsteroidal Anti-inflammatory Drug Start: 01-08-20 take 1 tablet by mouth every six hours as needed ibuprofen (MOTRIN) 600 mg tablet Take 1 tablet by mouth every 6 hours as needed for pain. 30 tablet 01/08/2024 Active Comment on above: Take 1 tablet by deyanira th every 6 hours as needed for pain. 3 ml insulin glargine 100 unt/ml pen injector (20 sources) Insulin Analog Start: 03-21-20 End: 03-21-20 inject 52 [IU] by subcutaneous injection once daily at bedtime insulin glargine 100 unit/mL (3 mL) Inject 52 Units subcutaneously daily at bedtime. 45 mL 3 03/21/2024 03/21/2025 Active Start: 02-25-2024 End: 03-21-2024 inject 48 [IU] by subcutaneous injection once daily at bedtime insulin glargine 100 unit/mL (3 mL) Inject 48 Units subcutaneously daily at bedtime. 45 mL 3 02/25/2024 03/21/2024 Discontinued Start: 01-08-2024 inject 34 [IU] by oropeza bcutaneous injection once daily at bedtime insulin glargine 100 unit/mL (3 mL) Inject 34 Units subcutaneously daily at bedtime. 15 mL 1 01/08/2024 Suspended Start: 07-08-2023 End: 08-29-2023 insulin glargine (LANTUS LONA OSTAR U-100 INSULIN) 100 unit/mL (3 mL) Inject 15 Units subcutaneously daily at bedtime. 5 mL 07/08/2023 08/29/2023 Discontinued Start: 07-08-2023 End: 08-29-2023 insulin glargine (LANTUS LONA OSTAR U-100 INSULIN) 100 unit/mL (3 mL) Inject 15 Units subcutaneously daily at bedtime. 5 mL 0 07/08/2023 08/29/2023 Discontinued Start: 02-20-2022 End: 11-17-2022 inject 1 dose by subcutaneous injection once daily at bedtime Lantus Solostar Pen 100 units/mL 3 mL Pen Dose : 25 unit(s) =, Subcutaneous, qHS, dose increased, # 3 EA, 2 Refill(s), Pharmacy: [facility] Diabetes mellitus, type 2, 162.6, cm, 02/20/22 13:38:00 EDT, Height, kg, 02/20/22 13:38:00 EDT, Dosing Weight Start Date: 02/20/22 Stop Date: 11/17/22 Status: Ordered Comment on above: Inject subcutaneousl y. Inject 15 Units subc utaneously daily at bedtime. Inject 34 Units subc utaneously daily at bedtime. 3 ml insulin lispro 100 unt/ml pen injector (20 sources) Insulin Analog Start: 02-25-2024 insulin lispro (HUMALOG KWIKPEN) 100 unit/mL Inject 12 Units subcutaneously with meals AND 0-10 Units three times a day before meals. Hold mealtime insulin if meal skipped. When eating, use lispro sliding scale #2 in addition to scheduled 12 units with meals depending on blood sugar. If Blood Glucose (mg/dL) is 111-150 Give 0 units 151-200 Give 2 unit 201-250 Give 4 units 251-300 Give 6 units 301-350 Give 8 units 351-400 Give 10 units >400 Call physician.. 32.4 mL 3 02/25/2024 Active Start: 01-08-2024 insulin lispro (HUMALOG KWIKPEN) 100 unit/mL Inject 13 Units subcutaneously 3 times a day with meals. 15 mL 1 01/08/2024 Suspended Start: 12-29-2023 insulin lispro (HUMALOG KWIKPEN) 100 unit/mL 30 units prior to meals + scale upto 100 units/day. 40 mL 11 12/29/2023 Suspended Start: 12-08-2023 End: 12-29-2023 insulin lispro (HUMALOG KWIK PEN) 100 unit/mL 20 units prior to meals + scale upto 100 units/day. 40 mL 11 12/08/2023 12/29/2023 Discontinued Start: 10-10-2023 End: 01-08-2024 insulin lispro (HUMALOG KWIK PEN) 100 unit/mL Inject 22 Units subcutaneously three times a day before meals. 60 mL 0 10/10/2023 12/08/2023 Discontinued Start: 09-07-2023 insulin lispro (HUMALOG KWIKPEN) 100 unit/mL Indications: Pre-existing diabetes mellitus in in second trimester 30 units prior each meal. 0 09/07/2023 Active Start: 07-20-2023 End: 08-29-2023 insulin lispro (HUMALOG KWIK PEN) 100 unit/mL 10 units prior each meal. 5 Each 07/20/2023 08/29/2023 Discontinued Comment on above: 10 units prior each meal. 30 units prior each meal. Inject 22 Units subc utaneously three times a day before meals. 20 units prior to me als + scale upto 100 units/day. 30 units prior to me als + scale upto 100 units/day. Inject 13 Units subc utaneously 3 times a day with meals. isopropyl alcohol 0.7 ml/ml medicated pad (20 sources) Start: 07-06-20 alcohol swabs (ALCOHOL PREP PADS) Indications: Insulin controlled gestational diabetes mellitus (GDM) in first trimester , Supervision of high risk due to social problems, first trimester , Poorly controlled diabetes mellitus (HCC) , with history of section, antepartum , Nausea and vomiting in , with uncertain dates in first trimester , Hypothyroidism affecting in first trimester , Pre-existing type 2 diabetes mellitus during in first trimester Use as directed to check glucose levels up to seven times daily. 200 Each 8 07/06/2023 Active Comment on above: Use as directed to c heck glucose levels up to seven times daily. levothyroxine sodium 0.175 mg oral tablet (20 sources) l-Thyroxine Start: 02-25-20 24 End: 02-25-20 take 1 tablet by mouth once daily in the morning levothyroxine (SYNTHROID) 175 mcg tablet Take 1 tablet by mouth daily at 6 am. 90 tablet 3 02/25/2024 02/24/2025 Active Start: 01-09-2024 take 1 tablet by deyanira th once daily in the morning levothyroxine (SYNTHROID) 175 mcg tablet Take 1 tablet by mouth daily at 6 am. 30 tablet 1 01/09/2024 Suspended Start: 12-08-2023 levothyroxine (SYNTHROID) 200 mcg tablet 225 mcg/day 30 tablet 11 12/08/2023 Suspended Start: 12-08-2023 levothyroxine (SYNTHROID) 25 mcg tablet 225 mcg/day 30 tablet 11 12/08/2023 Suspended Start: 07-20-2023 End: 01-09-2024 take 1 tablet by mouth once daily levothyroxine (SYNTH ROID) 200 mcg tablet Take 1 tablet by mouth once daily. 90 tablet 0 10/11/2023 12/08/2023 Discontinued Start: 03-27-2023 take 1 tablet by deyanira th once daily for thyroid dysfunction levothyroxine (LEVOXYL) 25 mcg tablet Take 1 tablet by mouth once daily. Take on empty stomach. For Thyroid 30 tablet 0 03/27/2023 Active Start: 05-30-2022 Synthroid 175 mcg (0.175 mg) oral tablet Dose : 175 mcg = 1 tab(s), Oral, qDay, # 30 tab(s), 0 Refill(s), Pharmacy: [facility] #[id number], Hypothyroid, 160, cm, 04/15/22 16:10:00 EDT, Height, kg, 04/15/22 16:10:00 EDT, Dosing Weight Start Date: 05/30/22 Status: Ordered Start: 03-19-2022 Synthroid 175 mcg (0.175 mg) oral tablet Dose : 175 mcg = 1 tab(s), Oral, qDay, # 30 tab(s), 0 Refill(s), Pharmacy: [address] Hypothyroid, 162.6, cm, 02/20/22 13:38:00 EDT, Height, kg, 03/17/22 16:38:00 EDT, Dosing Weight Start Date: 03/19/22 Status: Ordered Start: 02-21-2022 End: 05-18-2022 levothyroxine 25 mcg (0.025 mg) oral tablet Dose : 25 mcg = 1 tab(s), Oral, qDay, Total dose 200mcg, # 60 tab(s), 0 Refill(s), Pharmacy: [address] Hypothyroidism, 162.6, cm, 02/20/22 13:38:00 EDT, Height, kg, 03/17/22 16:38:00 EDT, Dosing Weight Start Date: 03/19/22 Stop Date: 05/18/22 Status: Ordered Start: 12-20-2021 Synthroid 175 mcg (0.175 mg) oral tablet Dose : 175 mcg = 1 tab(s), Oral, qDay, # 30 tab(s), 0 Refill(s), Pharmacy: [address] Hypothyroid, 162.6, cm, 12/19/21 11:39:00 EDT, Height, kg, 12/19/21 11:39:00 EDT, Dosing Weight Start Date: 12/20/21 Status: Ordered Start: 09-04-2019 Synthroid 175 mcg (0.175 mg) oral tablet Dose : 175 mcg = 1 tab(s), Oral, qDay Start Date: 09/04/19 Status: Ordered Start: 06-02-2019 take 1 tablet by deyanira th once daily for thyroid dysfunction levothyroxine (LEVOXYL) 175 mcg tablet Take 1 tablet by mouth once daily. Take on empty stomach. For thyroid. 30 tablet 0 03/27/2023 Active Comment on above: Take 1 tablet by deyanira th daily before breakfast. Take 1 tablet by deyanira th once daily. Take on empty stomach. For Thyroid Take 1 tablet by deyanira th once daily. Take on empty stomach. For thyroid. Take 1 tablet by deyanira th once daily. 225 mcg/day Take 1 tablet by deyanira th daily at 6 am. lidocaine 0.05 mg/mg topical ointment (9 sources) Antiarrhythmic, Amide Local Anesthetic Start: 2023 End: 2023 lidocaine (XYLOCAINE) 5 % ointment Apply to affected area as needed for up to 20 days. use a small amount to affected area qid prn pain 35 g 1 12/28/2023 01/17/2024 Suspended Comment on above: Apply to affected ar ea as needed for up to 20 days. use a small amount to affected area qid prn pain methylPREDNISolone (1 source) Corticosteroid Start: 2022 End: 2022 methylPREDNISolone (MEDROL, JACQUI,) 4 mg Dose-Pack Indications: Rash Follow dosing instructions, take with food. 21 tablet 0 05/06/2023 05/12/2023 Active Comment on above: Follow dosing instru ctions, take with food. metroNIDAZOLE 500 mg oral tablet (1 source) Nitroimidazole Antimicrobial Start: 2022 End: 2022 take 1 tablet by mouth twice daily metroNIDAZOLE (FLAGYL) 500 mg tablet Take 1 tablet by mouth two times a day for 7 days. 14 tablet 0 08/04/2023 08/11/2023 Active Comment on above: Take 1 tablet by deyanira th two times a day for 7 days. mupirocin 0.02 mg/mg topical ointment (1 source) RNA Synthetase Inhibitor Antibacterial Start: 2022 End: 2022 mupirocin (BACTROBAN) 2 % ointment Indications: Infection of lip Apply to affected area three times daily for 10 days. 22 g 0 03/31/2023 04/10/2023 Active Comment on above: Apply to affected ar ea three times daily for 10 days. naproxen 500 mg oral tablet (1 source) Nonsteroidal Anti-inflammatory Drug Start: 2021 End: 2021 naproxen 500 mg oral tablet Dose : 500 mg = 1 tab(s), Oral, BID, # 14 tab(s), 0 Refill(s), 03/18/22 18:47:00 EDT, Contusion of hip Start Date: 03/17/22 Stop Date: 03/18/22 Status: Ordered nitrofurantoin, macrocrystals 25 mg / nitrofurantoin, monohydrate 75 mg oral capsule (1 source) Nitrofuran Antibacterial Start: 2022 End: 2022 Macrobid 100 mg oral capsule Dose : 100 mg = 1 cap(s), Oral, BID, Take with food, X 7 day(s), # 14 cap(s), 0 Refill(s), 06/05/23 1:32:00 AM EDT, 106.8 Start Date: 05/29/23 Stop Date: 06/05/23 Status: Ordered norethindrone 0.35 mg oral tablet (13 sources) Start: 2023 take 1 tablet by mouth once daily Norethindrone, Contraceptive, 0.35 mg tablet Take 1 tablet by mouth once daily. 28 tablet 4 02/16/2024 Active Pen needles 8 mm (7 sources) Start: 2021 Pen needles 8 mm See Instructions, QID testing for type 2 DM, # 4 EA, 3 Refill(s), Pharmacy: [address], Diabetes mellitus, type 2, 162.6, cm, 12/19/21 11:39:00 EDT, Height, 121.8, kg, 12/19/21 11:39:00 EDT, Dosing Weight Start Date: 12/19/21 Status: Ordered phenazopyridine hydrochloride 100 mg oral tablet (1 source) Start: 2022 End: 2022 Pyridium 100 mg oral tablet Dose : 100 mg = 1 tab(s), Oral, TID, X 2 day(s), # 6 tab(s), 0 Refill(s), 05/31/23 1:32:00 AM EDT Start Date: 05/29/23 Stop Date: 05/31/23 Status: Ordered polyhexam biguan-gauze bandage 0.2 %- 1/2 X 3 feet strp (14 sources) Start: 2023 polyhexam biguan-gauze bandage 0.2 %- 1/2 X 3 feet strp Apply 1 Each to affected area once daily. Pack wound DIRECTED. 10 Each 2 02/18/2024 Suspended Start: 02-18-2024 polyhexam bigu an-gauze bandage 0.2 %- 1/2 X 3 feet strp Apply 1 Each to affected area once daily. Pack wound DIRECTED. 10 Each 2 02/18/2024 Active Start: 02-16-2024 End: 02-18-2024 polyhexam biguan-gauze lemus ge 0.2 %- 1/2 X 3 feet strp Apply 1 Each to affected area once daily. Pack wound DIRECTED. 10 Each 2 02/16/2024 02/18/2024 Discontinued Start: 02-16-2024 polyhexam bigu an-gauze bandage 0.2 %- 1/2 X 3 feet strp Apply 1 Each to affected area once daily. Pack wound DIRECTED. 10 Each 2 02/16/2024 Active pravastatin sodium 10 mg oral tablet (7 sources) HMG-CoA Reductase Inhibitor Start: 02-20-2022 pravastatin 10 mg or al tablet Dose : 10 mg = 1 tab(s), Oral, qDay, # 90 tab(s), 3 Refill(s), Pharmacy: [address], Diabetes mellitus, type 2, 162.6, cm, 02/20/22 13:38:00 EDT, Height Start Date: 02/20/22 Status: Ordered VIT 19-TSLK-UTLVN-DHA ORAL (20 sources) VIT 81-FVTI-MPHVI-DHA ORAL Take by mouth. Active VIT 10- DKUS-OCABX-OKS ORAL Take by mouth. 0 Suspended VIT 10- LRBT-MBCWA-IGL ORAL Take by mouth. 0 Active Comment on above: Take by mouth. Sertraline (12 sources) Serotonin Reuptake Inhibitor Start: 04-20-2021 Zoloft Oral, qDay, 0 Refill(s) Start Date: 04/20/21 Status: Ordered Start: 05-31-2019 take 1 tablet by deyanira th once daily sertraline (ZOLOFT) 100 mg tablet Take 1 tablet by mouth once daily. 30 tablet 1 05/31/2019 Active Comment on above: Take 1 tablet by deyanira th once daily. triamcinolone acetonide 1 mg/ml topical cream (1 source) Corticosteroid Start: 05-06-2023 End: 05-16-2023 triamcinolone acetonide (KENALOG) 0.1 % cream Indications: Rash Apply 1 application to affected area three times daily for 10 days. Apply sparingly to area for rash/itching. 80 g 0 05/06/2023 05/16/2023 Active Comment on above: Apply 1 application to affected area three times daily for 10 days. Apply sparingly to area for rash/itching. Completed/Discontinued Medications Medication Drug Class(es) Dates Sig (Normalized) Sig (Original) Blood-Glucose Meter (1 source) Start: 07-06-2023 End: 07-07-2023 Blood-Glucose Meter Indications: Insulin controlled gestational diabetes mellitus (GDM) in first trimester , Supervision of high risk due to social problems, first trimester , Poorly controlled diabetes mellitus (HCC) , with history of section, antepartum , Nausea and vomiting in , with uncertain dates in first trimester , Hypothyroidism affecting in first trimester , Pre-existing type 2 diabetes mellitus during in first trimester Use as directed to check glucose levels up to seven times daily. 1 Each 0 07/06/2023 07/07/2023 Comment on above: Use as directed to c heck glucose levels up to seven times daily. diphenhydrAMINE (12 sources) Histamine-1 Receptor Antagonist diphenhydramine HCl (BENADRYL ORAL) Take by mouth. 0 Suspended diphenhydramine HCl (BENADRYL ORAL) Take by mouth. 0 Active Comment on above: Take by mouth. Ethinyl Estradiol / norgestimate (11 sources) Progestin, Estrogen Start: 0 End: 3 take 1 tablet by mouth once daily norgestimate 0.25 mg-ethinyl estradiol 35 mcg (SPRINTEC) 0.25-35 mg-mcg per tablet Indications: Encounter for BCP ( control pills) initial prescription Take 1 tablet by mouth once daily. 1 Package 12 07/25/2020 07/02/2023 Discontinued Start: 07-25-2020 take 1 tablet by deyanira th once daily norgestimate 0.25 mg-ethinyl estradiol 35 mcg (SPRINTEC) 0.25-35 mg-mcg per tablet Indications: Encounter for BCP ( control pills) initial prescription Take 1 tablet by mouth once daily. 1 Package 12 07/25/2020 Active Comment on above: Take 1 tablet by deyanira th once daily. famotidine 20 mg oral tablet (20 sources) Histamine-2 Receptor Antagonist Start: 02-25-20 End: 01-08-20 24 take 1 tablet by mouth twice daily famotidine (PEPCID) 20 mg tablet Take 20 mg by mouth twice daily. 02/27/2023 01/08/2024 Discontinued Comment on above: Take 20 mg by mouth twice daily. 12 hr guaiFENesin 600 mg extended release oral tablet (20 sources) Start: 10-10-19 take 2 tablets by mouth twice daily as needed guaiFENesin (MUCINEX) 600 mg 12 hr tablet Take 2 tablets by mouth two times a day as needed for cold/allergy symptoms. 20 tablet 0 10/10/2023 Suspended Comment on above: Take 2 tablets by mo [facility] two times a day as needed for cold/allergy symptoms. 3 ml insulin aspart, human 100 unt/ml pen injector (20 sources) Insulin Analog Start: 07-08-20 End: 12-08-19 inject 3 [IU] by subcutaneous injection three times daily before mealtime insulin aspart U-100 (NOVOLOG FLEXPEN U-100 INSULIN) 100 unit/mL (3 mL) Inject 3 Units subcutaneously three times a day before meals. 3 mL 07/08/2023 12/08/2023 Discontinued Start: 12-19-2021 End: 06-17-2022 NovoLOG FlexPen 100 units/mL injectable solution Dose : 5 unit(s) =, Subcutaneous, TIDAC, # 12 mL, 1 Refill(s), Pharmacy: [place] [id number] [facility] Diabetes mellitus, type 2, 162.6, cm, 12/19/21 11:39:00 EDT, Height, kg, 12/19/21 11:39:00 EDT, Dosing Weight Start Date: 12/19/21 Stop Date: 06/17/22 Status: Ordered End: 07-08-2023 inject 3 [IU] by subcutaneous injection three times daily before mealtime insulin aspart (NOVOLOG FLEXPEN U-100 INSULIN SUBCUTANEOUS) Inject 3 Units subcutaneously three times daily before meals. 0 07/08/2023 Discontinued inject 3 [IU] by sub cutaneous injection three times daily before mealtime insulin aspart (NOVOLOG FLEXPEN U-100 INSULIN SUBCUTANEOUS) Inject 3 Units subcutaneously three times daily before meals. 0 Active insulin aspart ( NOVOLOG FLEXPEN U-100 INSULIN SUBCUTANEOUS) Inject subcutaneously. 0 Active Comment on above: Inject subcutaneousl y. Inject 3 Units subcu taneously three times daily before meals. Inject 3 Units subcu taneously three times a day before meals. 3 ml insulin isophane, human 100 unt/ml pen injector (20 sources) Start: 12-29-2023 insulin NPH (HUMULIN N NPH INSULIN KWIKPEN) 100 unit/mL (3 mL) injection pen 30 units in the morning and 50 units at bedtime. 30 mL 11 12/29/2023 Suspended Start: 12-08-2023 End: 12-29-2023 insulin NPH (HUMULIN N NPH I NSULIN KWIKPEN) 100 unit/mL (3 mL) injection pen 20 units in the morning and 40 units at bedtime. 30 mL 11 12/08/2023 12/29/2023 Discontinued Start: 10-10-2023 End: 01-08-2024 inject 30 [IU] by subcutaneous injection once daily at breakfast, then inject 48 [IU] by subcutaneous injection once daily at bedtime insulin NPH (HUMULIN N NPH INSULIN KWIKPEN) 100 unit/mL (3 mL) injection pen Inject 30 Units subcutaneously daily with breakfast AND 48 Units daily at bedtime. 71 mL 0 10/10/2023 12/08/2023 Discontinued Start: 09-07-2023 insulin NPH (H UMULIN N NPH INSULIN KWIKPEN) 100 unit/mL (3 mL) injection pen Indications: Pre-existing diabetes mellitus in in second trimester 50 units in AM and 75 units at bedtime 0 09/07/2023 Active Start: 08-29-2023 insulin NPH (H UMULIN N NPH INSULIN KWIKPEN) 100 unit/mL (3 mL) injection pen Indications: Pre-existing diabetes mellitus in in second trimester 25 units in AM and 50 units at bedtime 15 Each 08/29/2023 Active Start: 07-20-2023 End: 08-29-2023 insulin NPH human (HUMULIN N NPH INSULIN KWIKPEN) 100 unit/mL (3 mL) injection pen 10 units in AM and 30 units at bedtime 5 Each 07/20/2023 08/29/2023 Discontinued Comment on above: 10 units in AM and 3 0 units at bedtime 25 units in AM and 5 0 units at bedtime 50 units in AM and 7 5 units at bedtime Inject 30 Units subc utaneously daily with breakfast AND 48 Units daily at bedtime. 20 units in the morn ing and 40 units at bedtime. 30 units in the morn ing and 50 units at bedtime. insulin lispro (HUMALOG KWIKPEN) 100 unit/mL (11 sources) Start: 08-29-2023 insulin lispro (HUMALOG KWIKPEN) 100 unit/mL Indications: Pre-existing diabetes mellitus in in second trimester 20 units prior each meal. 15 Each 08/29/2023 Active Start: 07-20-2023 End: 08-29-2023 insulin lispro (HUMALOG KWIK PEN) 100 unit/mL 10 units prior each meal. 5 Each 07/20/2023 08/29/2023 Discontinued Start: 07-20-2023 insulin lispro (HUMALOG KWIKPEN) 100 unit/mL 10 units prior each meal. 5 Each 07/20/2023 Active Comment on above: 10 units prior each meal. 20 units prior each meal. Insulin Syringe-Needle U-100 1 mL 28 x 5/16 syrg (3 sources) Start: 12-02-2023 End: 12-03-2023 Insulin Syringe-Needle U-100 1 mL 28 x 5/16 syrg Use 3x per day with insulin. 200 Each 12/02/2023 12/03/2023 Discontinued Comment on above: Use 3x per day with insulin. L. acidophilus-L. rhamnosus 15 billion cell cap (11 sources) Start: 07-25-2020 End: 07-02-2023 take 1 capsule by mouth once daily L. acidophilus-L. rhamnosus 15 billion cell cap Indications: Acute vaginitis Take 1 capsule by mouth once daily. [employer]OM[employer]. If on antibiotic, take at least 1-2 hours before or after antibiotic. KEEP REFRIGERATED 30 capsule 11 07/25/2020 07/02/2023 Discontinued Start: 07-25-2020 take 1 capsule by mo ut once daily L. acidophilus-L. rhamnosus 15 billion cell cap Indications: Acute vaginitis Take 1 capsule by mouth once daily. [employer] [employer]. If on antibiotic, take at least 1-2 hours before or after antibiotic. KEEP REFRIGERATED 30 capsule 11 07/25/2020 Active Comment on above: Take 1 capsule by [facility] once daily. [facility] [employer]OM[employer]. If on antibiotic, take at least 1-2 hours before or after antibiotic. KEEP REFRIGERATED lisinopril 2.5 mg oral tablet (7 sources) Angiotensin Converting Enzyme Inhibitor Start: 022 End: 023 lisinopril 2.5 mg oral tablet Dose : 2.5 mg = 1 tab(s), Oral, qDay, # 90 tab(s), 3 Refill(s), Pharmacy: [address], Diabetes mellitus, type 2, 162.6, cm, 02/20/22 13:38:00 EDT, Height Start Date: 02/20/22 Stop Date: 02/15/23 Status: Ordered metFORMIN hydrochloride 500 mg oral tablet (20 sources) Biguanide Start: 019 End: 024 take 1 tablet by mouth twice daily at mealtime metFORMIN (GLUCOPHAGE) 500 mg tablet Take 1 tablet by mouth twice daily with meals. 60 tablet 1 06/01/2019 01/08/2024 Discontinued Comment on above: Take 1 tablet by [facility] twice daily with meals. miconazole nitrate 20 mg/ml vaginal cream (11 sources) Azole Antifungal Start: 020 miconazole (MONISTAT 7) 2 % vaginal cream Indications: Acute vaginitis Use 1 Applicator vaginally daily at bedtime. 45 g 0 07/25/2020 Active Comment on above: Use 1 Applicator vag inally daily at bedtime. ondansetron 4 mg disintegrating oral tablet (7 sources) Serotonin-3 Receptor Antagonist Start: take 1 tablet by mouth every six hours ondansetron orally disintegrating (ZOFRAN ODT) 4 mg disintegrating tablet dissolve 1 tablet by mouth every 6 hours 0 02/27/2023 Active Comment on above: dissolve 1 tablet by mouth every 6 hours promethazine hydrochloride 25 mg oral tablet (20 sources) Phenothiazine Start: End: take 12.5-25 mg by mouth every six hours as needed promethazine (PHENERGAN) 25 mg tablet Take 0.5-1 tablets by mouth every 6 hours as needed. 30 tablet 1 07/06/2023 01/08/2024 Discontinued Comment on above: Take 0.5-1 tablets b y mouth every 6 hours as needed. sodium chloride 0.111 meq/ml nasal spray (20 sources) Start: sodium chloride 0.65 % nasal spray Use 1 [place] in the nose as needed for cold/allergy symptoms. 15 mL 0 10/10/2023 Suspended Comment on above: Use 1 [place] in the n ose as needed for cold/allergy symptoms. valACYclovir 1000 mg oral tablet (8 sources) Herpesvirus Nucleoside Analog DNA Polymerase Inhibitor, Herpes Simplex Virus Nucleoside Analog DNA Polymerase Inhibitor, Herpes Zoster Virus Nucleoside Analog DNA Polymerase Inhibitor Start: Valtrex 1 g oral tablet Dose : 1 gram(s) = 1 tab(s), Oral, BID Start Date: 09/04/19 Status: Ordered Problems Active Problems Problem Classification Problem Date Documented Da te Episodic/Chronic Blindness and vision defects (18 sources) Bilateral eye astigmatism; Translations: [Hypermetropia] 02-28-2022 Episodic Comment on above: L eye Diabetes mellitus with complications (20 sources) Diabetic - poor control; Translations: [Type 2 diabetes mellitus with hyperglycemia] Onset: 07-01-2023 07-01-2023 Chronic Diabetes mellitus without complication (20 sources) Type 2 diabetes mellitus; Translations: [Type 2 diabetes mellitus without complication] Onset: 11-03-2011 Resolved: 07-06-2023 11-14-2021 Chronic Diabetes mellitus without complication (20 sources) Hyperglycemia; Translations: [Hyperglycemia, unspecified] Onset: 10-17-2021 Episodic Diseases of mouth; excluding dental (1 source) Infection of lip; Translations: [Diseases of lips] Episodic Disorders of lipid metabolism (20 sources) Pure hypercholesterolemi a; Translations: [Pure hypercholesterolemi a, unspecified] Onset: 11-03-2011 Resolved: 10-09-2023 05-24-2019 Chronic Mood disorders (1 source) Depressive disorder; Translations: [Other specified depressive episodes] 01-12-2024 Chronic Other aftercare (1 source) Wound ; Translations: [Encounter for other specified surgical aftercare] 04-22-2024 Episodic Other aftercare (1 source) 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 agent (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 of 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; Translations: [Type 2 diabetes mellitus with hyperglycemia, with long-term current use of insulin (HCC)] Onset: 05-16-2024 Episodic Other complications of (20 sources) Maternal obesity complicating , childbirth and the puerperium, antepartum; Translations: [Obesity complicating , unspecified trimester] Onset: 07-01-2023 07-01-2023 Chronic Other complications of (17 sources) Obesity; Translations: [Obesity complicating , unspecified trimester] Onset: 07-01-2023 11-18-2023 Chronic Other complications of (2 sources) Obesity complicating , second trimester; Translations: [Obesity complicating , childbirth, or the puerperium, antepartum condition or complication] Onset: 11-18-2023 11-20-2023 Chronic Other complications of (1 source) Obesity complicating , third trimester; Translations: [Obesity affecting in third trimester, unspecified obesity type] Onset: 01-04-2024 Chronic Other complications of (1 source) Obesity complicating , unspecified trimester; Translations: [Obesity affecting , antepartum, unspecified obesity type] Onset: 07-01-2023 Chronic Other complications of (1 source) Pain in female pelvis; Translations: [Other specified related conditions, unspecified trimester] 06-16-2023 Episodic Other complications of (2 sources) Nausea and vomiting; Translations: [Vomiting of , unspecified] 07-14-2023 Episodic Other complications of (2 sources) Thyroid dysfunction during , childbirth and the puerperium; Translations: [Endocrine, nutritional and metabolic diseases complicating , second trimester] 08-29-2023 Episodic Other endocrine disorders (7 sources) Polycystic ovary syndrome 10-24-2021 Chronic Other gastrointestinal disorders (1 source) Diarrhea; Translations: [Diarrhea, unspecified] Episodic Other infections; including parasitic (1 source) Louse infestation; Translations: [Pediculosis, unspecified] 06-15-2023 Episodic Other lower respiratory disease (2 sources) Cough; Translations: [Acute cough] Episodic Other lower respiratory disease (1 source) H/O: asthma; Translations: [Personal history of other diseases of the respiratory system] 08-13-2023 Episodic Other nutritional; endocrine; and metabolic disorders (20 sources) Body mass index 40+ - severely obese; Translations: [Body mass index (BMI) 40.0-44.9, adult] Onset: 01-15-2024 Resolved: 02-16-2024 02-20-2022 Chronic Other nutritional; endocrine; and metabolic disorders (1 source) Body mass index (BMI) 40.0-44.9, adult; Translations: [BMI 40.0-44.9, adult ([facility])] Onset: 11-18-2023 Chronic Other skin disorders (1 source) Eruption; Translations: [Rash and other nonspecific skin eruption] 05-06-2023 Episodic Other upper respiratory disease (1 source) Congestion of nasal sinus; Translations: [Nasal congestion] 05-03-2024 Episodic Other upper respiratory infections (1 source) Acute upper respiratory infection; Translations: [Acute upper respiratory infection, unspecified] 08-13-2023 Episodic Otitis media and related conditions (2 sources) Otitis media; Translations: [Otitis media, unspecified, unspecified ear] Onset: 08-30-2023 Episodic Residual codes; unclassified (1 source) Peripheral edema; Translations: [Edema, unspecified] Episodic Residual codes; unclassified (1 source) Gestation period, 12 weeks; Translations: [12 weeks gestation of ] 08-04-2023 Episodic Residual codes; unclassified (1 source) Gestation period, 15 weeks; Translations: [15 weeks gestation of ] 08-25-2023 Episodic Residual codes; unclassified (1 source) Gestation period, 17 weeks; Translations: [17 weeks gestation of ] 2023 Episodic Residual codes; unclassified (15 sources) Gestation period, 21 weeks; Translations: [21 weeks gestation of ] Onset: 10-09-2023 10-10-2023 Episodic Residual codes; unclassified (2 sources) Gestation period, 27 weeks; Translations: [27 weeks gestation of ] 11-18-2023 Episodic Residual codes; unclassified (1 source) Gestation period, 29 weeks; Translations: [29 weeks gestation of ] 12-03-2023 Episodic Residual codes; unclassified (2 sources) Gestation period, 31 weeks; Translations: [31 weeks gestation of ] 12-15-2023 Episodic Residual codes; unclassified (2 sources) Gestation period, 32 weeks; Translations: [32 weeks gestation of ] 12-22-2023 Episodic Residual codes; unclassified (1 source) Gestation period, 33 weeks; Translations: [33 weeks gestation of ] 12-28-2023 Episodic Skin and subcutaneous tissue infections (1 source) Cellulitis; Translations: [Cellulitis, unspecified] Onset: 06-18-2022 Episodic Spondylosis; intervertebral disc disorders; other back problems (1 source) Acute low back pain; Translations: [Acute midline low back pain without sciatica] Episodic Superficial injury; contusion (1 source) Contusion of hip; Translations: [Contusion of unspecified hip, initial encounter] Onset: 03-17-2022 Episodic Thyroid disorders (20 sources) Hypothyroidism; Translations: [Other specified hypothyroidism] Onset: 05-24-2019 02-20-2022 Chronic Unclassified (1 source) Breast feeding (infant) (observable entity) 09-04-2019 Comment on above: System added from do cumentation. Breast feeding Status documented as Yes on Admission Unclassified (1 source) Maternal care for other (suspected) abnormality and damage, cardiac anomalies, fetus 1; Translations: [Maternal care for other (suspected) abnormality and damage, cardiac anomalies, fetus 1] Onset: 11-30-2023 Unclassified (17 sources) [place] [facility] Onset: 01-08-2024 01-08-2024 Unclassified (1 source) Fluid collection Onset: 02-23-2024 Unclassified (1 source) Anomaly of heart of fetus affecting , antepartum, single or unspecified fetus; Translations: [Anomaly of heart of fetus affecting , antepartum, single or unspecified fetus] Onset: 12-29-2023 Urinary tract infections (1 source) Cystitis; Translations: [Cystitis, unspecified without hematuria] Onset: 05-29-2023 Episodic Viral infection (20 sources) Genital herpes simplex; Translations: [Herpesviral infection of urogenital system, unspecified] Onset: 05-24-2019 Chronic Past or Other Problems Problem Classification Problem Date Documented Date Episodic/Chronic Abdominal pain (3 sources) Abdominal pain; Translations: [Unspecified abdominal pain] Onset: 05-29-2023 Episodic Administrative/social admission (2 sources) Patient encounter status; Translations: [Dietary counseling and surveillance] Onset: 07-27-2023 07-27-2023 Episodic Complications of surgical procedures or medical care (12 sources) Non-healing surgical wound; Translations: [Other complications of procedures, not elsewhere classified, subsequent encounter] Onset: 02-23-2024 02-19-2024 Episodic Diabetes or abnormal glucose tolerance complicating ; childbirth; or the puerperium (20 sources) Pre-existing type 2 diabetes mellitus in ; Translations: [Pre-existing type 2 diabetes mellitus, in , first trimester] Onset: 05-23-2019 Resolved: 02-16-2024 07-09-2023 Chronic Diabetes or abnormal glucose tolerance complicating ; childbirth; or the puerperium (7 sources) Gestational diabetes mellitus; Translations: [Gestational diabetes mellitus in , insulin controlled] Onset: 07-14-2023 07-01-2023 Episodic Other aftercare (10 sources) Insulin dose changed; Translations: [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 agent (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 of insulin] Onset: 02-23-2024 02-23-2024 Episodic Other complications of ; puerperium affecting management of mother (20 sources) Abnormality of heart; Translations: [Anomaly of heart of fetus affecting , antepartum, single or unspecified fetus] Onset: 12-15-2023 12-15-2023 Episodic Other complications of ; puerperium affecting management of mother (20 sources) Deliveries by ; Translations: [Encounter for delivery without indication] Onset: 01-05-2024 Resolved: 01-12-2024 01-05-2024 Episodic Other complications of ; puerperium affecting management of mother (1 source) Encounter for delivery without indication; Translations: [ delivery delivered] Onset: 01-05-2024 Episodic Other complications of (20 sources) High risk ; Translations: [Supervision of high risk due to social problems, first trimester] Onset: 07-01-2023 Resolved: 01-12-2024 07-01-2023 Episodic Other complications of (20 sources) Urinary tract infection in ; Translations: [Unspecified infection of urinary tract in , unspecified trimester] Onset: 07-01-2023 Resolved: 07-06-2023 07-01-2023 Episodic Other complications of (20 sources) Hypothyroidism in ; Translations: [Endocrine, nutritional and metabolic diseases complicating , first trimester] Onset: 05-24-2019 Resolved: 02-16-2024 07-14-2023 Episodic Other complications of (20 sources) Disease caused by 2019-nCoV; Translations: [Other viral diseases complicating , second trimester] Onset: 10-09-2023 Resolved: 02-16-2024 10-10-2023 Episodic Other complications of (20 sources) Asthma in ; Translations: [Diseases of the respiratory system complicating , second trimester] Onset: 10-09-2023 Resolved: 02-16-2024 10-10-2023 Episodic Other complications of (20 sources) Insufficient care; Translations: [Supervision of with insufficient care, unspecified trimester] Onset: 05-23-2019 Resolved: 07-12-2019 07-12-2019 Episodic Other complications of (1 source) Endocrine, nutritional and metabolic diseases complicating , third trimester; Translations: [Hypothyroidism affecting in third trimester] Onset: 12-29-2023 Episodic Other complications of (1 source) Supervision of high risk , unspecified, third trimester; Translations: [Supervision of high risk in third trimester] Onset: 12-29-2023 Episodic Other complications of (1 source) Supervision of high risk , unspecified, first trimester; Translations: [High-risk in first trimester] Onset: 11-18-2023 Episodic Other complications of (1 source) Supervision of high risk , unspecified, second trimester; Translations: [High-risk in second trimester] Onset: 11-10-2023 Episodic Other complications of (1 source) Supervision of high risk due to social problems, first trimester; Translations: [Supervision of high risk due to social problems, first trimester] Onset: 07-01-2023 Episodic Other complications of (1 source) Vomiting of , unspecified; Translations: [Nausea and vomiting in ] Onset: 07-14-2023 Episodic Other complications of (1 source) Endocrine, nutritional and metabolic diseases complicating , first trimester; Translations: [Hypothyroidism affecting in first trimester] Onset: 07-14-2023 Episodic Other complications of (1 source) Other specified related conditions, unspecified trimester; Translations: [Pelvic pain in ] Onset: 06-17-2023 Episodic Other infections; including parasitic (20 sources) History of sexually transmitted disease; Translations: [Personal history of other infectious and parasitic diseases] Onset: 05-23-2019 Resolved: 12-15-2023 07-01-2023 Episodic Other nutritional; endocrine; and metabolic disorders (20 sources) Severe obesity; Translations: [Morbid (severe) obesity due to excess calories] Onset: 01-25-2014 Resolved: 12-29-2023 05-24-2019 Chronic Other nutritional; endocrine; and metabolic disorders (20 sources) H/O: hypothyroidism; Translations: [Personal history of other endocrine, nutritional and metabolic disease] Onset: 05-23-2019 Resolved: 05-24-2019 05-24-2019 Episodic Other and delivery including normal (5 sources) with uncertain dates; Translations: [Encounter for supervision of normal , unspecified, first trimester] Onset: 07-14-2023 07-14-2023 Episodic Other screening for suspected conditions (not mental disorders or infectious disease) (7 sources) Possible ; Translations: [Encounter for test, result unknown] Onset: 2023 06-15-2023 Episodic Polyhydramnios and other problems of amniotic cavity (20 sources) Polyhydramnios; Translations: [Polyhydramnios, first trimester, not applicable or unspecified] Onset: 12-15-2023 Resolved: 01-12-2024 12-15-2023 Episodic Previous (20 sources) ; Translations: [Maternal care for unspecified type scar from previous delivery] Onset: 07-01-2023 Resolved: 01-12-2024 07-01-2023 Episodic Comment on above: System added from do cumentation. Status documented as Yes on Admission Residual codes; unclassified (20 sources) Gestation period, 34 weeks; Translations: [34 weeks gestation of ] Onset: 01-04-2024 Resolved: 01-12-2024 01-04-2024 Episodic Residual codes; unclassified (20 sources) FH: Congenital heart disease; Translations: [Family history of other congenital malformations, deformations and chromosomal abnormalities] Onset: 05-23-2019 Resolved: 07-12-2019 07-12-2019 Episodic Residual codes; unclassified (1 source) 29 weeks gestation of ; Translations: [29 weeks gestation of ] Onset: 12-03-2023 Episodic Residual codes; unclassified (1 source) 23 weeks gestation of ; Translations: [23 weeks gestation of ] Onset: 11-10-2023 Episodic Residual codes; unclassified (1 source) 17 weeks gestation of ; Translations: [17 weeks gestation of ] Onset: 2023 Episodic Residual codes; unclassified (1 source) 15 weeks gestation of ; Translations: [15 weeks gestation of ] Onset: 08-25-2023 Episodic Screening and history of mental health and substance abuse codes (20 sources) H/O: depression; Translations: [Personal history of other mental and behavioral disorders] Onset: 05-23-2019 Resolved: 07-06-2023 05-23-2019 Episodic Results Test Name Value Interpretation Reference Range Facility ALBUMIN/CREATININE RATIO, UR INEon 05-16-2024 Albumin DL <= 20 mg/L (U) [Mass/Vol] 131.9 mg/L Normal [facility] Comment on above: Order Comment: Speci men Type: URINE SPECIMENOrdering Facility: [facility] Address: [address] [place] [address] Performed By: #### U ACR ####[facility] [id number] [place] [address] [place] Albumin/Creatinine (U) [Mass ratio] 163 mg/g High <30 [facility] Comment on above: Order Comment: Speci men Type: URINE SPECIMENOrdering Facility: [facility] Address: [address] [place] [address] Result Comment: Adul t Male and Female Nephrotic Criteria:<30 mg/g is considered normal to mildly [id number] mg/g is considered moderately increased>300 mg/g is considered severely increasedKDIGO. (2013). KDIGO 2012 Clinical Practice Guideline for the Evaluation and Management of Chronic Kidney Disease. Official Journal of the International Society of Nephrology, 3(1), 1-150. Performed By: #### U ACR ####[facility] [id number] [place] [address] [place] Creatinine (U) [Mass/Vol] 81.1 mg/dL Normal 20.0-300.0 [facility] Comment on above: Order Comment: Speci men Type: URINE SPECIMENOrdering Facility: [facility] Address: [address] [place] [address] Performed By: #### U ACR ####[facility] [id number] [place] [address] [place] HbA1c (Bld)on 05-16-2024 Average glucose Estimated from glycated hemoglobin (Bld) [Mass/Vol] 280 mg/dL Normal [facility] Comment on above: Order Comment: Speci men Type: BLOOD SPECIMENOrdering Facility: [facility] Address: [address] [place] [address] Result Comment: eAG: (Estimated average glucose) is a calculated value from HgbA1c and is customer retention representative of the average blood glucose level in the last 2-3 month period. Performed By: #### 5 5454-3 ####[facility] [id number] [place] [address] [place] HbA1c (Bld) [Mass fraction] 11.4 % High 4.3-5.6 [facility] Comment on above: Order Comment: Speci men Type: BLOOD SPECIMENOrdering Facility: [facility] Address: [address] [place] [address] Result Comment: Amer ican Diabetes Association guidelines indicate that patients with HgbA1c in the range 5.7-6.4% are at increased risk for development of diabetes, and intervention by lifestyle modification may be beneficial. HgbA1c greater or equal to 6.5% is considered diagnostic of diabetes. Performed By: #### 5 5454-3 ####[facility] [id number] [place] [address] [place] T4 Free SerPl-mCncon 024 Free T4 [Mass/Vol] 0.8 ng/dL Low 0.9-1.7 [facility] Comment on above: Order Comment: Specson moreira Type: BLOOD SPECIMENOrdering Facility: [facility] Address: [address] [place] [address] Performed By: #### 3 016-3, 3024-7 ####[facility] [id number] [address] [place] TSH SerPl-aCncon 05-16-2024 TSH Qn 26.500 m[IU]/L High 0.270-4.200 [facility] Comment on above: Order Comment: Dio moreira Type: BLOOD SPECIMENOrdering Facility: [facility] Address: [address] [place] [address] Result Comment: If t he patient is , TSH reference range varies by gestational period:First Trimester (weeks 9-12): 0.180-2.990 mIU/LSecond Trimester: 0.110-3.980 mIU/LThird Trimester: 0.480-4.710 mIU/LDnatalia Torres et al. A Practical Approach for the Verifications and Determination of Site- and Trimester-Specific Reference Intervals for Thyroid Function tests in . Thyroid, 2019:29:3:412-420. Reymundo E, et al. 2017 Guidelines of the [place] Thyroid Association for the Diagnosis and Management of Thyroid Disease during and the . Thyroid, 2017:27:3:315-389. Performed By: #### 3 016-3, 3024-7 ####[facility] [id number] [place] [address] [place] CNOVon 05-03-2024 CNOV Normal [facility] CNOVon 04-22-2024 CNOV Normal [facility] CNPNon 04-02-2024 CNPN Normal [facility] [id number] 02-25-2024 [id number] Normal [facility] CASE MANAGEMon 02-25-2024 CASE MANAGEM Normal [facility] CBC panel Auto (Bld)on 02-24 Erythrocyte distribution width (RBC) [Ratio] 15.4 % High 11.5-15.0 [facility] Comment on above: Order Comment: Speci men Type: BLOOD SPECIMENOrdering Facility: [facility] Address: [address] [place] [address] Performed By: #### 5 8410-2 ####[facility] [id number] [place] [address] [place] Hematocrit (Bld) [Volume fraction] 28.1 % Low 36.0-46.0 [facility] Comment on above: Order Comment: Speci men Type: BLOOD SPECIMENOrdering Facility: [facility] Address: [address] [place] [address] Performed By: #### 5 8410-2 ####[facility] [id number] [place] [address] [place] Hemoglobin (Bld) [Mass/Vol] 8.7 g/dL Low 11.5-15.5 [facility] Comment on above: Order Comment: Speci men Type: BLOOD SPECIMENOrdering Facility: [facility] Address: [address] [place] [address] Performed By: #### 5 8410-2 ####[facility] [id number] [place] [address] [place] MCH (RBC) [Entitic mass] 23.1 pg Low 26.0-34.0 [facility] Comment on above: Order Comment: Speci men Type: BLOOD SPECIMENOrdering Facility: [facility] Address: [address] [place] [address] Performed By: #### 5 8410-2 ####[facility] [id number] [place] [address] [place] MCHC (RBC) [Mass/Vol] 31.0 g/dL Normal 30.5-36.0 [facility] Comment on above: Order Comment: Speci men Type: BLOOD SPECIMENOrdering Facility: [facility] Address: [address] [place] [address] Performed By: #### 5 8410-2 ####[facility] [id number] [place] [address] [place] MCV (RBC) [Entitic vol] 74.5 fL Low 80.0-100.0 [facility] Comment on above: Order Comment: Speci men Type: BLOOD SPECIMENOrdering Facility: [facility] Address: [address] [place] [address] Performed By: #### 5 8410-2 ####[facility] [id number] [place] [address] [place] Nucleated RBC (Bld) [#/Vol] 10*3/uL Normal <0.01 [facility] Comment on above: Order Comment: Speci men Type: BLOOD SPECIMENOrdering Facility: [facility] Address: [address] [place] [address] Performed By: #### 5 8410-2 ####[facility] [id number] [place] [address] [place] Platelet mean volume (Bld) [Entitic vol] 11.1 fL Normal 9.0-12.7 [facility] Comment on above: Order Comment: Speci men Type: BLOOD SPECIMENOrdering Facility: [facility] Address: [address] [place] [address] Performed By: #### 5 8410-2 ####[facility] [id number] [place] [address] [place] Platelets (Bld) [#/Vol] 299 10*3/uL Normal 150-400 [facility] Comment on above: Order Comment: Speci men Type: BLOOD SPECIMENOrdering Facility: [facility] Address: [address] [place] [address] Performed By: #### 5 8410-2 ####[facility] [id number] [place] [address] [place] RBC (Bld) [#/Vol] 3.77 10*6/uL Low 3.90-5.20 [facility] Comment on above: Order Comment: Speci men Type: BLOOD SPECIMENOrdering Facility: [facility] Address: [address] [place] [address] Performed By: #### 5 8410-2 ####[facility] [id number] [place] [address] [place] WBC (Bld) [#/Vol] 10.33 10*3/uL Normal 3.70-11.00 [facility] Comment on above: Order Comment: Speci men Type: BLOOD SPECIMENOrdering Facility: [facility] Address: [address] [place] [address] Performed By: #### 5 8410-2 ####[facility] [id number] [place] [address] [place] Erythrocyte distribution width (RBC) [Ratio] 15.4 % High 11.5-15.0 [facility] Comment on above: Order Comment: Speci men Type: BLOOD SPECIMENOrdering Facility: [facility] Address: [address] [place] [address] Performed By: #### 5 8410-2 ####[facility] [id number] [place] [address] [place] Hematocrit (Bld) [Volume fraction] 28.5 % Low 36.0-46.0 [facility] Comment on above: Order Comment: Speci men Type: BLOOD SPECIMENOrdering Facility: [facility] Address: [address] [place] [address] Performed By: #### 5 8410-2 ####[facility] [id number] [place] [address] [place] Hemoglobin (Bld) [Mass/Vol] 8.8 g/dL Low 11.5-15.5 [facility] Comment on above: Order Comment: Speci men Type: BLOOD SPECIMENOrdering Facility: [facility] Address: [address] [place] [address] Performed By: #### 5 8410-2 ####[facility] [id number] [place] [address] [place] MCH (RBC) [Entitic mass] 23.2 pg Low 26.0-34.0 [facility] Comment on above: Order Comment: Speci men Type: BLOOD SPECIMENOrdering Facility: [facility] Address: [address] [place] [address] Performed By: #### 5 8410-2 ####[facility] [id number] [place] [address] [place] MCHC (RBC) [Mass/Vol] 30.9 g/dL Normal 30.5-36.0 [facility] Comment on above: Order Comment: Speci men Type: BLOOD SPECIMENOrdering Facility: [facility] Address: [address] [place] [address] Performed By: #### 5 8410-2 ####[facility] [id number] [place] [address] [place] MCV (RBC) [Entitic vol] 75.0 fL Low 80.0-100.0 [facility] Comment on above: Order Comment: Speci men Type: BLOOD SPECIMENOrdering Facility: [facility] Address: [address] [place] [address] Performed By: #### 5 8410-2 ####[facility] [id number] [place] [address] [place] Nucleated RBC (Bld) [#/Vol] 10*3/uL Normal <0.01 [facility] Comment on above: Order Comment: Speci men Type: BLOOD SPECIMENOrdering Facility: [facility] Address: [address] [place] [address] Performed By: #### 5 8410-2 ####[facility] [id number] [place] [address] [place] Platelet mean volume (Bld) [Entitic vol] 11.3 fL Normal 9.0-12.7 [facility] Comment on above: Order Comment: Speci men Type: BLOOD SPECIMENOrdering Facility: [facility] Address: [address] [place] [address] Performed By: #### 5 8410-2 ####[facility] [id number] [place] [address] [place] Platelets (Bld) [#/Vol] 344 10*3/uL Normal 150-400 [facility] Comment on above: Order Comment: Speci men Type: BLOOD SPECIMENOrdering Facility: [facility] Address: [address] [place] [address] Performed By: #### 5 8410-2 ####[facility] [id number] [place] [address] [place] RBC (Bld) [#/Vol] 3.80 10*6/uL Low 3.90-5.20 [facility] Comment on above: Order Comment: Speci men Type: BLOOD SPECIMENOrdering Facility: [facility] Address: [address] [place] [address] Performed By: #### 5 8410-2 ####[facility] [id number] [place] [address] [place] WBC (Bld) [#/Vol] 11.76 10*3/uL High 3.70-11.00 [facility] Comment on above: Order Comment: Speci men Type: BLOOD SPECIMENOrdering Facility: [facility] Address: [address] [place] [address] Performed By: #### 5 8410-2 ####[facility] [id number] [place] [address] [place] CNDSon 02-25-2024 CNDS Normal [facility] CONSULT PROGon 02-25-2024 CONSULT PROG Normal [facility] CASE MGT INIT ASSESon 2023 CASE MGT INIT ASSES Normal [facility] CBC W Ordered Manual Differe ntial panel (Bld)on 02-24-2024 Basophils (Bld) [#/Vol] 0.07 10*3/uL Normal <0.11 [facility] Comment on above: Order Comment: Speci men Type: BLOOD SPECIMENOrdering Facility: [facility] Address: [address] [place] [address] Performed By: #### 5 7782-5, 88932-3 ####[facility] [id number] [place] [address] [place] Basophils/100 WBC (Bld) 0.7 % Normal [facility] Comment on above: Order Comment: Speci men Type: BLOOD SPECIMENOrdering Facility: [facility] Address: [address] [place] [address] Performed By: #### 5 7782-5, 44996-7 ####[facility] [id number] [place] [address] [place] Differential cell count method Nom (Bld) Auto Normal [facility] Comment on above: Order Comment: Speci men Type: BLOOD SPECIMENOrdering Facility: [facility] Address: [address] [place], [place] [address] Performed By: #### 5 7782-5, 22689-8 ####[facility] [id number] [place] [address] [place] Eosinophils (Bld) [#/Vol] 0.20 10*3/uL Normal <0.46 [facility] Comment on above: Order Comment: Speci men Type: BLOOD SPECIMENOrdering Facility: [facility] Address: [address] [place] [address] Performed By: #### 5 7782-5, 79753-0 ####[facility] [id number] [place] [address] [place] Eosinophils/100 WBC (Bld) 1.9 % Normal [facility] Comment on above: Order Comment: Speci men Type: BLOOD SPECIMENOrdering Facility: [facility] Address: [address] [place] [address] Performed By: #### 5 7782-5, 77850-6 ####[facility] [id number] [place] [address] [place] Erythrocyte distribution width (RBC) [Ratio] 15.7 % High 11.5-15.0 [facility] Comment on above: Order Comment: Speci men Type: BLOOD SPECIMENOrdering Facility: [facility] Address: [address] [place] [address] Performed By: #### 5 7782-5, 97606-8 ####[facility] [id number] [place] [address] [place] Hematocrit (Bld) [Volume fraction] 30.3 % Low 36.0-46.0 [facility] Comment on above: Order Comment: Speci men Type: BLOOD SPECIMENOrdering Facility: [facility] Address: [address] [place] [address] Performed By: #### 5 7782-5, 53187-4 ####[facility] [id number] [place] [address] [place] Hemoglobin (Bld) [Mass/Vol] 9.1 g/dL Low 11.5-15.5 [facility] Comment on above: Order Comment: Speci men Type: BLOOD SPECIMENOrdering Facility: [facility] Address: [address] [place] [address] Performed By: #### 5 7782-5, 10076-4 ####[facility] [id number] [place] [address] [place] Immature granulocytes (Bld) [#/Vol] 0.06 10*3/uL Normal <0.10 [facility] Comment on above: Order Comment: Speci men Type: BLOOD SPECIMENOrdering Facility: [facility] Address: [address] [place] [address] Performed By: #### 5 7782-5, 32463-6 ####[facility] [id number] [place] [address] [place] Immature granulocytes/100 WBC (Bld) 0.6 % Normal [facility] Comment on above: Order Comment: Speci men Type: BLOOD SPECIMENOrdering Facility: [facility] Address: [address] [place] [address] Performed By: #### 5 7782-5, 36512-3 ####[facility] [id number] [place] [address] [place] Lymphocytes (Bld) [#/Vol] 2.12 10*3/uL Normal 1.00-4.00 [facility] Comment on above: Order Comment: Speci men Type: BLOOD SPECIMENOrdering Facility: [facility] Address: [address] [place] [address] Performed By: #### 5 7782-5, 52605-0 ####[facility] [id number] [place] [address] [place] Lymphocytes/100 WBC (Bld) 20.6 % Normal [facility] Comment on above: Order Comment: Speci men Type: BLOOD SPECIMENOrdering Facility: [facility] Address: [address] [place] [address] Performed By: #### 5 7782-5, 87842-1 ####[facility] [id number] [place] [address] [place] MCH (RBC) [Entitic mass] 22.4 pg Low 26.0-34.0 [facility] Comment on above: Order Comment: Speci men Type: BLOOD SPECIMENOrdering Facility: [facility] Address: [address] [place] [address] Performed By: #### 5 7782-5, 66510-7 ####[facility] [id number] [place] [address] [place] MCHC (RBC) [Mass/Vol] 30.0 g/dL Low 30.5-36.0 [facility] Comment on above: Order Comment: Speci men Type: BLOOD SPECIMENOrdering Facility: [facility] Address: [address] [place] [address] Performed By: #### 5 7782-5, 81410-8 ####[facility] [id number] [place] [address] [place] MCV (RBC) [Entitic vol] 74.4 fL Low 80.0-100.0 [facility] Comment on above: Order Comment: Speci men Type: BLOOD SPECIMENOrdering Facility: [facility] Address: [address] [place] [address] Performed By: #### 5 7782-5, 89950-3 ####[facility] [id number] [place] [address] [place] Monocytes (Bld) [#/Vol] 0.74 10*3/uL Normal <0.87 [facility] Comment on above: Order Comment: Speci men Type: BLOOD SPECIMENOrdering Facility: [facility] Address: [address] [place] [address] Performed By: #### 5 7782-5, 61844-8 ####[facility] [id number] [place] [address] [place] Monocytes/100 WBC (Bld) 7.2 % Normal [facility] Comment on above: Order Comment: Speci men Type: BLOOD SPECIMENOrdering Facility: [facility] Address: [address] [place] [address] Performed By: #### 5 7782-5, 84914-3 ####[facility] [id number] [place] [address] [place] Neutrophils (Bld) [#/Vol] 7.09 10*3/uL Normal 1.45-7.50 [facility] Comment on above: Order Comment: Speci men Type: BLOOD SPECIMENOrdering Facility: [facility] Address: [address] [place] [address] Performed By: #### 5 7782-5, 54460-0 ####[facility] [id number] [place] [address] [place] Neutrophils/100 WBC (Bld) 69.0 % Normal [facility] Comment on above: Order Comment: Speci men Type: BLOOD SPECIMENOrdering Facility: [facility] Address: [address] [place] [address] Performed By: #### 5 7782-5, 13627-0 ####[facility] [id number] [place] [address] [place] Nucleated RBC (Bld) [#/Vol] 10*3/uL Normal <0.01 [facility] Comment on above: Order Comment: Speci men Type: BLOOD SPECIMENOrdering Facility: [facility] Address: [address] [place] [address] Performed By: #### 5 7782-5, 32502-0 ####[facility] [id number] [place] [id number] [place] Nucleated RBC/100 WBC (Bld) [Ratio] 0.0 /100 WBC Normal [facility] Comment on above: Order Comment: Speci men Type: BLOOD SPECIMENOrdering Facility: [facility] Address: [address] [place] [address] Performed By: #### 5 7782-5, 68186-2 ####[facility] [id number] [place] [address] [place] Platelet mean volume (Bld) [Entitic vol] 11.1 fL Normal 9.0-12.7 [facility] Comment on above: Order Comment: Speci men Type: BLOOD SPECIMENOrdering Facility: [facility] Address: [address] [place] [address] Performed By: #### 5 7782-5, 27124-6 ####[facility] [id number] [place] [address] [place] Platelets (Bld) [#/Vol] 349 10*3/uL Normal 150-400 [facility] Comment on above: Order Comment: Speci men Type: BLOOD SPECIMENOrdering Facility: [facility] Address: [address] [place] [address] Performed By: #### 5 7782-5, 96587-3 ####[facility] [id number] [place] [id number] [place] RBC (Bld) [#/Vol] 4.07 10*6/uL Normal 3.90-5.20 [facility] Comment on above: Order Comment: Speci men Type: BLOOD SPECIMENOrdering Facility: [facility] Address: [address] [place] [address] Performed By: #### 5 7782-5, 01030-0 ####[facility] [id number] [place] [address] [place] WBC (Bld) [#/Vol] 10.28 10*3/uL Normal 3.70-11.00 [facility] Comment on above: Order Comment: Speci men Type: BLOOD SPECIMENOrdering Facility: [facility] Address: [address] [place] [address] Performed By: #### 5 7782-5, 82200-5 ####[facility] [id number] [place] [address] [place] CBC panel Auto (Bld)on 02-23 Erythrocyte distribution width (RBC) [Ratio] 15.3 % High 11.5-15.0 [facility] Comment on above: Order Comment: Speci men Type: BLOOD SPECIMENOrdering Facility: [facility] Address: [address] [place] [address] Performed By: #### 5 8410-2 ####[facility] [id number] [place] [address] [place] Hematocrit (Bld) [Volume fraction] 20.6 % Low 36.0-46.0 [facility] Comment on above: Order Comment: Speci men Type: BLOOD SPECIMENOrdering Facility: [facility] Address: [address] [place] [address] Performed By: #### 5 8410-2 ####[facility] [id number] [place] [id number] [place] Hemoglobin (Bld) [Mass/Vol] 6.1 g/dL Low 11.5-15.5 [facility] Comment on above: Order Comment: Speci men Type: BLOOD SPECIMENOrdering Facility: [facility] Address: [address] [place] [address] Performed By: #### 5 8410-2 ####[facility] [id number] [place] [address] [place] MCH (RBC) [Entitic mass] 22.3 pg Low 26.0-34.0 [facility] Comment on above: Order Comment: Speci men Type: BLOOD SPECIMENOrdering Facility: [facility] Address: [address] [place] [address] Performed By: #### 5 8410-2 ####[facility] [id number] [place] [address] [place] MCHC (RBC) [Mass/Vol] 29.6 g/dL Low 30.5-36.0 [facility] Comment on above: Order Comment: Speci men Type: BLOOD SPECIMENOrdering Facility: [facility] Address: [address] [place] [address] Performed By: #### 5 8410-2 ####[facility] [id number] [place] [address] [place] MCV (RBC) [Entitic vol] 75.2 fL Low 80.0-100.0 [facility] Comment on above: Order Comment: Speci men Type: BLOOD SPECIMENOrdering Facility: [facility] Address: [address] [place] [address] Performed By: #### 5 8410-2 ####[facility] [id number] [place] [address] [place] Nucleated RBC (Bld) [#/Vol] 10*3/uL Normal <0.01 [facility] Comment on above: Order Comment: Speci men Type: BLOOD SPECIMENOrdering Facility: [facility] Address: [address] [place] [address] Performed By: #### 5 8410-2 ####[facility] [id number] [place] [address] [place] Platelet mean volume (Bld) [Entitic vol] 11.5 fL Normal 9.0-12.7 [facility] Comment on above: Order Comment: Speci men Type: BLOOD SPECIMENOrdering Facility: [facility] Address: [address] [place] [address] Performed By: #### 5 8410-2 ####[facility] [id number] [place] [address] [place] Platelets (Bld) [#/Vol] 263 10*3/uL Normal 150-400 [facility] Comment on above: Order Comment: Speci men Type: BLOOD SPECIMENOrdering Facility: [facility] Address: [address] [place] [address] Performed By: #### 5 8410-2 ####[facility] [id number] [place] [address] [place] RBC (Bld) [#/Vol] 2.74 10*6/uL Low 3.90-5.20 [facility] Comment on above: Order Comment: Speci men Type: BLOOD SPECIMENOrdering Facility: [facility] Address: [address] [place] [address] Performed By: #### 5 8410-2 ####[facility] [id number] [place] [address] [place] WBC (Bld) [#/Vol] 8.09 10*3/uL Normal 3.70-11.00 [facility] Comment on above: Order Comment: Speci men Type: BLOOD SPECIMENOrdering Facility: [facility] Address: [address] [place] [address] Performed By: #### 5 8410-2 ####[facility] LABIA [id number] [place] [address] [place] Erythrocyte distribution width (RBC) [Ratio] 15.2 % High 11.5-15.0 [facility] Comment on above: Order Comment: Speci men Type: BLOOD SPECIMENOrdering Facility: [facility] Address: [address] [place] [address] Performed By: #### 5 8410-2 ####[facility] LABIA [id number] [place] [address] [place] Hematocrit (Bld) [Volume fraction] 25.1 % Low 36.0-46.0 [facility] Comment on above: Order Comment: Speci men Type: BLOOD SPECIMENOrdering Facility: [facility] Address: [address] [place] [address] Performed By: #### 5 8410-2 ####[facility] LABIA [id number] [place] [address] [place] Hemoglobin (Bld) [Mass/Vol] 7.5 g/dL Low 11.5-15.5 [facility] Comment on above: Order Comment: Speci men Type: BLOOD SPECIMENOrdering Facility: [facility] Address: [address] [place] [address] Performed By: #### 5 8410-2 ####[facility] LABIA [id number] [place] [address] [place] MCH (RBC) [Entitic mass] 22.1 pg Low 26.0-34.0 [facility] Comment on above: Order Comment: Speci men Type: BLOOD SPECIMENOrdering Facility: [facility] Address: [address] [place] [address] Performed By: #### 5 8410-2 ####[facility] LABIA [id number] [place] [address] [place] MCHC (RBC) [Mass/Vol] 29.9 g/dL Low 30.5-36.0 [facility] Comment on above: Order Comment: Speci men Type: BLOOD SPECIMENOrdering Facility: [facility] Address: [address] [place] [address] Performed By: #### 5 8410-2 ####[facility] [id number] [place] [address] [place] MCV (RBC) [Entitic vol] 74.0 fL Low 80.0-100.0 [facility] Comment on above: Order Comment: Speci men Type: BLOOD SPECIMENOrdering Facility: [facility] Address: [address] [place] [address] Performed By: #### 5 8410-2 ####[facility] LABCLIA [id number] [place] [address] [place] Nucleated RBC (Bld) [#/Vol] 10*3/uL Normal <0.01 [facility] Comment on above: Order Comment: Speci men Type: BLOOD SPECIMENOrdering Facility: [facility] Address: [address] [place] [address] Performed By: #### 5 8410-2 ####[facility] LABCLIA [id number] [place] [address] [place] Platelet mean volume (Bld) [Entitic vol] 11.3 fL Normal 9.0-12.7 [facility] Comment on above: Order Comment: Speci men Type: BLOOD SPECIMENOrdering Facility: [facility] Address: [address] [place] [address] Performed By: #### 5 8410-2 ####[facility] LABIA [id number] [place] [address] [place] Platelets (Bld) [#/Vol] 375 10*3/uL Normal 150-400 [facility] Comment on above: Order Comment: Speci men Type: BLOOD SPECIMENOrdering Facility: [facility] Address: [address] [place] [address] Performed By: #### 5 8410-2 ####[facility] LABCLIA [id number] [place] [address] [place] RBC (Bld) [#/Vol] 3.39 10*6/uL Low 3.90-5.20 [facility] Comment on above: Order Comment: Speci men Type: BLOOD SPECIMENOrdering Facility: [facility] Address: [address] [place] [address] Performed By: #### 5 8410-2 ####[facility] LABCLIA [id number] [place] [address] [place] WBC (Bld) [#/Vol] 9.28 10*3/uL Normal 3.70-11.00 [facility] Comment on above: Order Comment: Speci men Type: BLOOD SPECIMENOrdering Facility: [facility] Address: [address] [place] [address] Performed By: #### 5 8410-2 ####[facility] LABIA [id number] [place] [address] [place] CONSULT PROGon 02-24-2024 CONSULT PROG Normal [facility] Comprehensive metabolic 2000 panelon 02-24-2024 Albumin [Mass/Vol] 3.4 g/dL Low 3.9-4.9 [facility] Comment on above: Order Comment: Speci men Type: BLOOD SPECIMENOrdering Facility: [facility] Address: [address] [place] [address] Performed By: #### 4 542-7, 01135-1, 2-0 ####[facility] LABCLIA [id number] [place] [address] [place] ALP [Catalytic activity/Vol] 41 U/L Normal 34-123 [facility] Comment on above: Order Comment: Speci men Type: BLOOD SPECIMENOrdering Facility: [facility] Address: [address] [place] [address] Performed By: #### 4 542-7, 23517-8, 2532-0 ####[facility] LABCLIA [id number] [place] [address] [place] ALT [Catalytic activity/Vol] 10 U/L Normal 7-38 [facility] Comment on above: Order Comment: Speci men Type: BLOOD SPECIMENOrdering Facility: [facility] Address: [address] [place] [address] Performed By: #### 4 542-7, 88689-4, 2531-0 ####[facility] LABCLIA [id number] [place] [address] [place] Anion gap [Moles/Vol] 14 mmol/L Normal 9-18 [facility] Comment on above: Order Comment: Speci men Type: BLOOD SPECIMENOrdering Facility: [facility] Address: [address] [place] [address] Performed By: #### 4 542-7, 67755-7, 2531-0 ####[facility] LABCLIA [id number] [place] [address] [place] AST [Catalytic activity/Vol] 16 U/L Normal 13-35 [facility] Comment on above: Order Comment: Speci men Type: BLOOD SPECIMENOrdering Facility: [facility] Address: [address] [place] [address] Performed By: #### 4 542-7, 07965-7, 2531-0 ####[facility] LABCLIA [id number] [place] [address] [place] Bilirubin [Mass/Vol] 0.4 mg/dL Normal 0.2-1.3 [facility] Comment on above: Order Comment: Speci men Type: BLOOD SPECIMENOrdering Facility: [facility] Address: [address] [place] [address] Performed By: #### 4 542-7, 95364-6, 2531-0 ####[facility] LABCLIA [id number] [place] [address] [place] Calcium [Mass/Vol] 9.1 mg/dL Normal 8.5-10.2 [facility] Comment on above: Order Comment: Speci men Type: BLOOD SPECIMENOrdering Facility: [facility] Address: [address] [place] [address] Performed By: #### 4 542-7, 47418-3, 2532-0 ####[facility] LABCLIA [id number] [address] [address] [place] Chloride [Moles/Vol] 100 mmol/L Normal 97-105 [facility] Comment on above: Order Comment: Speci men Type: BLOOD SPECIMENOrdering Facility: [facility] Address: [address] [place] [address] Performed By: #### 4 542-7, 79969-1, 253-0 ####[facility] LABIA [id number] [place] [address] [place] CO2 [Moles/Vol] 23 mmol/L Normal 22-30 [facility] Comment on above: Order Comment: Speci men Type: BLOOD SPECIMENOrdering Facility: [facility] Address: [address] [place] [address] Performed By: #### 4 542-7, 72827-3, 253-0 ####[facility] LABIA [id number] [place] [address] [place] Creatinine [Mass/Vol] 0.77 mg/dL Normal 0.58-0.96 [facility] Comment on above: Order Comment: Speci men Type: BLOOD SPECIMENOrdering Facility: [facility] Address: [address] [place] [address] Performed By: #### 4 542-7, 08119-2, 253-0 ####[facility] LABIA [id number] [place] [id number] [place] Creatinine and Glomerular filtration rate.predicted panel (S/P/Bld) 109 mL/min/1.73m??? Normal >=60 [facility] Comment on above: Order Comment: Speci men Type: BLOOD SPECIMENOrdering Facility: [facility] Address: [address] [place] [address] Result Comment: Ofelia mated Glomerular Filtration Rate (eGFR) is calculated using the 2020 CKD-EPI creatinine equation. This equation utilizes serum creatinine, sex, and age as parameters. The creatinine assay has traceable calibration to isotope dilution-mass spectrometry. Refer to KDIGO guidelines for clinical interpretation. In patients with unstable renal function, e.g. those with acute kidney injury, the eGFR may not accurately reflect actual GFR. Performed By: #### 4 542-7, 60434-0, 2531-0 ####[facility] LABCLIA [id number] [place] [id number] [place] Glucose [Mass/Vol] 231 mg/dL High 74-99 [facility] Comment on above: Order Comment: Dio moreira Type: BLOOD SPECIMENOrdering Facility: [facility] Address: [address] [place] [address] Result Comment: The [place] [employer] (ADA) provides guidance for cutoff values for fasting glucose and random glucose. The ADA defines fasting as no caloric intake for at least 8 hours. Fasting plasma glucose results between 100 to 125 mg/dL indicate increased risk for diabetes (prediabetes).Fasting plasma glucose results greater than or equal to 126 mg/dL meet the criteria for diagnosis of diabetes. In the absence of unequivocal hyperglycemia, results should be confirmed by repeat testing. In a patient with classic symptoms of hyperglycemia or hyperglycemic crisis, random plasma glucose results greater than or equal to 200 mg/dL meet the criteria for diagnosis of diabetes.Reference: Standards of Medical Care in Diabetes 2016, [place] [employer]. Diabetes Care. 2016.39(Suppl 1). Performed By: #### 4 542-7, 67079-3, 0 ####[facility] LABCLIA [id number] [address] [address] [place] Potassium [Moles/Vol] 4.5 mmol/L Normal 3.7-5.1 [facility] Comment on above: Order Comment: Dio moreira Type: BLOOD SPECIMENOrdering Facility: [facility] Address: [address] [place] [address] Performed By: #### 4 542-7, 07407-1, 2531-0 ####[facility] LABCLIA [id number] [address] [address] [place] Protein [Mass/Vol] 6.2 g/dL Low 6.3-8.0 [facility] Comment on above: Order Comment: Speci men Type: BLOOD SPECIMENOrdering Facility: [facility] Address: [address] [place] [address] Performed By: #### 4 542-7, 00815-2, 2532-0 ####[facility] LABCLIA [id number] [place] [address] [place] Sodium [Moles/Vol] 137 mmol/L Normal 136-144 [facility] Comment on above: Order Comment: Speci men Type: BLOOD SPECIMENOrdering Facility: [facility] Address: [address] [place] [address] Performed By: #### 4 542-7, 92396-7, 2532-0 ####[facility] LABIA [id number] [place] [address] [place] Urea nitrogen [Mass/Vol] 9 mg/dL Normal 7-21 [facility] Comment on above: Order Comment: Speci men Type: BLOOD SPECIMENOrdering Facility: [facility] Address: [address] [place] [address] Performed By: #### 4 542-7, 84272-1, 2532-0 ####[facility] LABIA [id number] [place] [id number] [place] Albumin [Mass/Vol] 3.1 g/dL Low 3.9-4.9 [facility] Comment on above: Order Comment: Speci men Type: BLOOD SPECIMENOrdering Facility: [facility] Address: [address] [place] [address] Performed By: #### 2 4323-8 ####[facility] LABIA [id number] [place] [id number] [place] ALP [Catalytic activity/Vol] 37 U/L Normal 34-123 [facility] Comment on above: Order Comment: Speci men Type: BLOOD SPECIMENOrdering Facility: [facility] Address: [address] [place] [address] Performed By: #### 2 4323-8 ####[facility] LABCLIA [id number] [place] [address] [place] ALT [Catalytic activity/Vol] 8 U/L Normal 7-38 [facility] Comment on above: Order Comment: Speci men Type: BLOOD SPECIMENOrdering Facility: [facility] Address: [address] [place] [address] Performed By: #### 2 4323-8 ####[facility] LABCLIA [id number] [place] [address] [place] Anion gap [Moles/Vol] 15 mmol/L Normal 9-18 [facility] Comment on above: Order Comment: Speci men Type: BLOOD SPECIMENOrdering Facility: [facility] Address: [address] [place] [address] Performed By: #### 2 4323-8 ####[facility] LABCLIA [id number] [place] [address] [place] AST [Catalytic activity/Vol] 9 U/L Low 13-35 [facility] Comment on above: Order Comment: Speci men Type: BLOOD SPECIMENOrdering Facility: [facility] Address: [address] [place] [address] Performed By: #### 2 4323-8 ####[facility] LABCLIA [id number] [place] [address] [place] Bilirubin [Mass/Vol] 0.2 mg/dL Normal 0.2-1.3 [facility] Comment on above: Order Comment: Speci men Type: BLOOD SPECIMENOrdering Facility: [facility] Address: [address] [place] [address] Performed By: #### 2 4323-8 ####[facility] LABCLIA [id number] [place] [address] [place] Calcium [Mass/Vol] 8.5 mg/dL Normal 8.5-10.2 [facility] Comment on above: Order Comment: Speci men Type: BLOOD SPECIMENOrdering Facility: [facility] Address: [address] [place] [address] Performed By: #### 2 4323-8 ####[facility] LABCLIA [id number] [place] [address] [place] Chloride [Moles/Vol] 101 mmol/L Normal 97-105 [facility] Comment on above: Order Comment: Speci men Type: BLOOD SPECIMENOrdering Facility: [facility] Address: [address] [place] [address] Performed By: #### 2 4323-8 ####[facility] LABCLIA [id number] [place] [address] [place] CO2 [Moles/Vol] 21 mmol/L Low 22-30 [facility] Comment on above: Order Comment: Speci men Type: BLOOD SPECIMENOrdering Facility: [facility] Address: [address] [place] [address] Performed By: #### 2 4323-8 ####[facility] LABCLIA [id number] [place] [address] [place] Creatinine [Mass/Vol] 0.50 mg/dL Low 0.58-0.96 [facility] Comment on above: Order Comment: Speci men Type: BLOOD SPECIMENOrdering Facility: [facility] Address: [address] [place] [address] Performed By: #### 2 4323-8 ####[facility] LABCLIA [id number] [place] [address] [place] Creatinine and Glomerular filtration rate.predicted panel (S/P/Bld) 132 mL/min/1.73m??? Normal >=60 [facility] Comment on above: Order Comment: Dio moreira Type: BLOOD SPECIMENOrdering Facility: [facility] Address: [address] [place] [address] Result Comment: Ofelia mated Glomerular Filtration Rate (eGFR) is calculated using the 2020 CKD-EPI creatinine equation. This equation utilizes serum creatinine, sex, and age as parameters. The creatinine assay has traceable calibration to isotope dilution-mass spectrometry. Refer to KDIGO guidelines for clinical interpretation. In patients with unstable renal function, e.g. those with acute kidney injury, the eGFR may not accurately reflect actual GFR. Performed By: #### 2 4323-8 ####[facility] [id number] [place] [address] [place] Glucose [Mass/Vol] 222 mg/dL High 74-99 [facility] Comment on above: Order Comment: Dio moreira Type: BLOOD SPECIMENOrdering Facility: [facility] Address: [address] [place] [address] Result Comment: The [place] [employer] (ADA) provides guidance for cutoff values for fasting glucose and random glucose. The ADA defines fasting as no caloric intake for at least 8 hours. Fasting plasma glucose results between 100 to 125 mg/dL indicate increased risk for diabetes (prediabetes).Fasting plasma glucose results greater than or equal to 126 mg/dL meet the criteria for diagnosis of diabetes. In the absence of unequivocal hyperglycemia, results should be confirmed by repeat testing. In a patient with classic symptoms of hyperglycemia or hyperglycemic crisis, random plasma glucose results greater than or equal to 200 mg/dL meet the criteria for diagnosis of diabetes.Reference: Standards of Medical Care in Diabetes 2016, [place] [employer]. Diabetes Care. 2016.39(Suppl 1). Performed By: #### 2 4323-8 ####[facility] [id number] [place] [address] [place] Potassium [Moles/Vol] 3.5 mmol/L Low 3.7-5.1 [facility] Comment on above: Order Comment: Dio moreira Type: BLOOD SPECIMENOrdering Facility: [facility] Address: [address] [place] [address] Performed By: #### 2 4323-8 ####[facility] LABCLIA [id number] [place] [address] [place] Protein [Mass/Vol] 5.9 g/dL Low 6.3-8.0 [facility] Comment on above: Order Comment: Speci men Type: BLOOD SPECIMENOrdering Facility: [facility] Address: [address] [place] [address] Performed By: #### 2 4323-8 ####[facility] LABCLIA [id number] [place] [address] [place] Sodium [Moles/Vol] 137 mmol/L Normal 136-144 [facility] Comment on above: Order Comment: Speci men Type: BLOOD SPECIMENOrdering Facility: [facility] Address: [address] [place] [address] Performed By: #### 2 4323-8 ####[facility] LABCLIA [id number] [place] [address] [place] Urea nitrogen [Mass/Vol] 8 mg/dL Normal 7-21 [facility] Comment on above: Order Comment: Speci men Type: BLOOD SPECIMENOrdering Facility: [facility] Address: [address] [place] [address] Performed By: #### 2 4323-8 ####[facility] LABCLIA [id number] [place] [id number] [place] Haptoglob SerPl-mCncon 02-23 Haptoglobin [Mass/Vol] 236 mg/dL Normal 31-238 [facility] Comment on above: Order Comment: Speci men Type: BLOOD SPECIMENOrdering Facility: [facility] Address: [address] [place] [address] Performed By: #### 4 542-7, 70877-0, 2532-0 ####[facility] LABCLIA [id number] [place] [address] [place] LDH SerPl-cCncon 02-24-2024 LDH [Catalytic activity/Vol] 176 U/L Normal 135-214 [facility] Comment on above: Order Comment: Speci men Type: BLOOD SPECIMENOrdering Facility: [facility] Address: [address] [place] [address] Result Comment: Hemo lysis present. The origin of the hemolysis, in vitro versus an in vivo hemolytic process, cannot be distinguished via this assay alone. In vitro hemolysis may lead to non-physiological (spurious) elevation in lactate dehydrogenase (LDH) results. Theresult should be interpreted in context of the clinical setting and other test results. Suggest reorder as clinically indicated. Performed By: #### 4 542-7, 78337-3, 2532-0 ####[facility] LABCLIA [id number] [place] [address] [place] PT EDon 02-24-2024 PT ED Normal [facility] Retics #on 02-24-2024 Reticulocytes (Bld) [#/Vol] 0.02801 10*3/uL Normal 0.018-0.100 [facility] Comment on above: Order Comment: Speci men Type: BLOOD SPECIMENOrdering Facility: [facility] Address: [address] [place] [address] Performed By: #### 5 7782-5, 77742-2 ####[facility] LABCLIA [id number] [place] [address] [place] Reticulocytes (Bld) [#/Vol]o n 02-24-2024 Reticulocytes/100 RBC (Bld) 1.7 % Normal 0.4-2.0 [facility] Comment on above: Order Comment: Speci men Type: BLOOD SPECIMENOrdering Facility: [facility] Address: [address] [place] [address] Performed By: #### 5 7782-5, 47890-5 ####[facility] LABCLIA [id number] [place] [address] [place] TYPE + SCREENon 02-24-2024 ABO A Normal [facility] Comment on above: Order Comment: Speci men Type: BLOOD SPECIMENOrdering Facility: [facility] Address: [address] [place] [address] Performed By: #### T SCR ####[facility] BANKCLIA [id number] [place] [address] [place] HISTORICAL AB SCR STATUS Negative Normal [facility] Comment on above: Order Comment: Speci men Type: BLOOD SPECIMENOrdering Facility: [facility] Address: [address] [place] [address] Performed By: #### T SCR ####[facility] BANKCLIA [id number] [place] [address] [place] Rh Nom (Bld) Positive Normal [facility] Comment on above: Order Comment: Speci men Type: BLOOD SPECIMENOrdering Facility: [facility] Address: [address] [place] [address] Performed By: #### T SCR ####[facility] BANKCLIA [id number] [place] [address] [place] TYPE AND SCREEN EXPIRATION 02/27/2024 23:59 Normal [facility] Comment on above: Order Comment: Speci men Type: BLOOD SPECIMENOrdering Facility: [facility] Address: [address] [place] [address] Performed By: #### T SCR ####[facility]LO[facility] BANKCLIA [id number] [place] [id number] [place] B-HYDROXYBUTYRATEon 02-23-20 24 Beta hydroxybutyrate [Moles/Vol] 0.66 mmol/L High <0.28 [facility] Comment on above: Order Comment: Speci men Type: BLOOD SPECIMENOrdering Facility: [facility] Address: [address] [place] [address] Result Comment: This test was developed and its performance characteristics determined by [facility]'s [facility] Pathology and Laboratory Medicine [place] ([facility]). It has not been cleared or approved by the FDA. -[facility] is regulated under CLIA as qualified to perform high-complexity testing. This test is used for clinical purposes. It should not be regarded as investigational or for research. Performed By: #### 2 4323-8, 2276-4, BHB, 48653-2 ####[facility] LABCLIA [id number] [place] [address] [place] Bacteria Bld Culton 02-23-20 24 Bacteria identified Cx Nom (Bld) CULTURE, BLOOD: No growth 5 days Normal [facility] Comment on above: Performed By: #### 6 00-7 ####[facility] LABCLIA [id number] [place] [address] [place] Bacteria identified Cx Nom (Bld) CULTURE, BLOOD: No growth 5 days Normal [facility] Comment on above: Performed By: #### 6 00-7 ####[facility] LABCLIA [id number] [place] [address] [place] Bacteria Ur Culton 4 Bacteria identified Cx Nom (U) ORGANISM ID: 1 <10,000 CFU/ml Normal urogenital asmita Normal [facility] Comment on above: Performed By: #### 6 30-4 ####[facility] LABCLIA [id number] [place] [address] [place] Bacteria Wnd Culton 02-23-20 24 Bacteria identified Cx Nom (Wound) ORGANISM ID: 1 Few skin asmita GRAM STAIN: No organisms seen Few Polymorphonuclear leukocytes Normal [facility] Comment on above: Performed By: #### 6 462-6 ####[facility] LABCLIA [id number] [place] [address] [place] CBC W Auto Differential pane l (Bld)on 02-23-2024 Basophils (Bld) [#/Vol] 0.07 10*3/uL Normal <0.11 [facility] Comment on above: Order Comment: Speci men Type: BLOOD SPECIMENOrdering Facility: [facility] Address: [address] [place] [address] Performed By: #### 5 7021-8 ####[facility] LABCLIA [id number] [place] [address] [place] Basophils/100 WBC (Bld) 0.6 % Normal [facility] Comment on above: Order Comment: Speci men Type: BLOOD SPECIMENOrdering Facility: [facility] Address: [address] [place] [address] Performed By: #### 5 7021-8 ####[facility] LABCLIA [id number] [place] [address] [place] Differential cell count method Nom (Bld) Auto Normal [facility] Comment on above: Order Comment: Speci men Type: BLOOD SPECIMENOrdering Facility: [facility] Address: [address] [place] [address] Performed By: #### 5 7021-8 ####[facility] LABCLIA [id number] [place] [address] [place] Eosinophils (Bld) [#/Vol] 0.19 10*3/uL Normal <0.46 [facility] Comment on above: Order Comment: Speci men Type: BLOOD SPECIMENOrdering Facility: [facility] Address: [address] [place] [address] Performed By: #### 5 7021-8 ####[facility] LABCL[facility] [id number] [place] [address] [place] Eosinophils/100 WBC (Bld) 1.6 % Normal [facility] Comment on above: Order Comment: Speci men Type: BLOOD SPECIMENOrdering Facility: [facility] Address: [address] [place] [address] Performed By: #### 5 7021-8 ####[facility] LABCLIA [id number] [place] [address] [place] Erythrocyte distribution width (RBC) [Ratio] 15.1 % High 11.5-15.0 [facility] Comment on above: Order Comment: Speci men Type: BLOOD SPECIMENOrdering Facility: [facility] Address: [address] [place] [address] Performed By: #### 5 7021-8 ####[facility] LABIA [id number] [place] [address] [place] Hematocrit (Bld) [Volume fraction] 27.0 % Low 36.0-46.0 [facility] Comment on above: Order Comment: Speci men Type: BLOOD SPECIMENOrdering Facility: [facility] Address: [address] [place] [address] Performed By: #### 5 7021-8 ####[facility] LABIA [id number] [place] [address] [place] Hemoglobin (Bld) [Mass/Vol] 8.6 g/dL Low 11.5-15.5 [facility] Comment on above: Order Comment: Speci men Type: BLOOD SPECIMENOrdering Facility: [facility] Address: [address] [place] [address] Performed By: #### 5 7021-8 ####[facility] LABIA [id number] [place] [address] [place] Immature granulocytes (Bld) [#/Vol] 0.09 10*3/uL Normal <0.10 [facility] Comment on above: Order Comment: Speci men Type: BLOOD SPECIMENOrdering Facility: [facility] Address: [address] [place] [address] Performed By: #### 5 7021-8 ####[facility] LABIA [id number] [place] [address] [place] Immature granulocytes/100 WBC (Bld) 0.8 % Normal [facility] Comment on above: Order Comment: Speci men Type: BLOOD SPECIMENOrdering Facility: [facility] Address: [address] [place] [address] Performed By: #### 5 7021-8 ####[facility] LABCLIA [id number] [place] [address] [place] Lymphocytes (Bld) [#/Vol] 2.85 10*3/uL Normal 1.00-4.00 [facility] Comment on above: Order Comment: Speci men Type: BLOOD SPECIMENOrdering Facility: [facility] Address: [address] [place] [address] Performed By: #### 5 7021-8 ####[facility]CL[facility] [id number] [place] [address] [place] Lymphocytes/100 WBC (Bld) 23.9 % Normal [facility] Comment on above: Order Comment: Speci men Type: BLOOD SPECIMENOrdering Facility: [facility] Address: [address] [place] [address] Performed By: #### 5 7021-8 ####[facility] LABCLIA [id number] [place] [address] [place] MCH (RBC) [Entitic mass] 22.9 pg Low 26.0-34.0 [facility] Comment on above: Order Comment: Speci men Type: BLOOD SPECIMENOrdering Facility: [facility] Address: [address] [place] [address] Performed By: #### 5 7021-8 ####[facility] LABCLIA [id number] [place] [address] [place] MCHC (RBC) [Mass/Vol] 31.9 g/dL Normal 30.5-36.0 [facility] Comment on above: Order Comment: Speci men Type: BLOOD SPECIMENOrdering Facility: [facility] Address: [address] [place] [address] Performed By: #### 5 7021-8 ####[facility] LABCLIA [id number] [place] [address] [place] MCV (RBC) [Entitic vol] 72.0 fL Low 80.0-100.0 [facility] Comment on above: Order Comment: Speci men Type: BLOOD SPECIMENOrdering Facility: [facility] Address: [address] [place] [address] Performed By: #### 5 7021-8 ####[facility] LABCLIA [id number] [place] [address] [place] Monocytes (Bld) [#/Vol] 0.76 10*3/uL Normal <0.87 [facility] Comment on above: Order Comment: Speci men Type: BLOOD SPECIMENOrdering Facility: [facility] Address: [address] [place] [address] Performed By: #### 5 7021-8 ####[facility]CLIA [id number] [place] [address] [place] Monocytes/100 WBC (Bld) 6.4 % Normal [facility] Comment on above: Order Comment: Speci men Type: BLOOD SPECIMENOrdering Facility: [facility] Address: [address] [place] [address] Performed By: #### 5 7021-8 ####[facility]CL[facility] [id number] [place] [address] [place] Neutrophils (Bld) [#/Vol] 7.96 10*3/uL High 1.45-7.50 [facility] Comment on above: Order Comment: Speci men Type: BLOOD SPECIMENOrdering Facility: [facility] Address: [address] [place] [address] Performed By: #### 5 7021-8 ####[facility] LABCLIA [id number] [place] [address] [place] Neutrophils/100 WBC (Bld) 66.7 % Normal [facility] Comment on above: Order Comment: Speci men Type: BLOOD SPECIMENOrdering Facility: [facility] Address: [address] [place] [address] Performed By: #### 5 7021-8 ####[facility] LABCLIA [id number] [place] [address] [place] Nucleated RBC (Bld) [#/Vol] 10*3/uL Normal <0.01 [facility] Comment on above: Order Comment: Speci men Type: BLOOD SPECIMENOrdering Facility: [facility] Address: [address] [place] [address] Performed By: #### 5 7021-8 ####[facility]CLIA [id number] [place] [address] [place] Nucleated RBC/100 WBC (Bld) [Ratio] 0.0 /100 WBC Normal [facility] Comment on above: Order Comment: Speci men Type: BLOOD SPECIMENOrdering Facility: [facility] Address: [address] [place] [address] Performed By: #### 5 7021-8 ####[facility]CL[facility] [id number] [place] [address] [place] Platelet mean volume (Bld) [Entitic vol] 10.8 fL Normal 9.0-12.7 [facility] Comment on above: Order Comment: Speci men Type: BLOOD SPECIMENOrdering Facility: [facility] Address: [address] [place] [address] Performed By: #### 5 7021-8 ####[facility] LABCLIA [id number] [place] [address] [place] Platelets (Bld) [#/Vol] 385 10*3/uL Normal 150-400 [facility] Comment on above: Order Comment: Speci men Type: BLOOD SPECIMENOrdering Facility: [facility] Address: [address] [place] [address] Performed By: #### 5 7021-8 ####[facility] LABCLIA [id number] [place] [id number] [place] RBC (Bld) [#/Vol] 3.75 10*6/uL Low 3.90-5.20 [facility] Comment on above: Order Comment: Speci men Type: BLOOD SPECIMENOrdering Facility: [facility] Address: [address] [place] [address] Performed By: #### 5 7021-8 ####[facility] LABCLIA [id number] [place] [address] [place] WBC (Bld) [#/Vol] 11.92 10*3/uL High 3.70-11.00 [facility] Comment on above: Order Comment: Speci men Type: BLOOD SPECIMENOrdering Facility: [facility] Address: [address] [place], [place] [address] Performed By: #### 5 7021-8 ####[facility] LABCLIA [id number] [place] [address] [place] CNPNon 02-23-2024 CNPN Normal [facility] CONSULTon 02-23-2024 CONSULT Normal [facility] CT ABD/PEL W IVCONon 024 CT ABD/PEL W IVCON Normal [facility] Comprehensive metabolic 2000 panelon 02-23-2024 Albumin [Mass/Vol] 3.5 g/dL Low 3.9-4.9 [facility] Comment on above: Order Comment: Speci men Type: BLOOD SPECIMENOrdering Facility: [facility] Address: [address] [place] [address] Performed By: #### 2 4323-8, 2276-4, BHB, 82335-7 ####[facility] LABCLIA [id number] [place] [address] [place] ALP [Catalytic activity/Vol] 44 U/L Normal 34-123 [facility] Comment on above: Order Comment: Speci men Type: BLOOD SPECIMENOrdering Facility: [facility] Address: [address] [place] [address] Performed By: #### 2 4323-8, 6-4, Rashard, 59916-8 ####[facility]CLIA [id number] [place] [address] [place] ALT [Catalytic activity/Vol] 11 U/L Normal 7-38 [facility] Comment on above: Order Comment: Speci men Type: BLOOD SPECIMENOrdering Facility: [facility] Address: [address] [place] [address] Performed By: #### 2 4323-8, 2275-4, Rashard, 08893-3 ####[facility] LABCLIA [id number] [place] [address] [place] Anion gap [Moles/Vol] 14 mmol/L Normal 9-18 [facility] Comment on above: Order Comment: Speci men Type: BLOOD SPECIMENOrdering Facility: [facility] Address: [address] [place] [address] Performed By: #### 2 4323-8, 2275-4, Rashard, 63828-7 ####[facility] LABCLIA [id number] [place] [address] [place] AST [Catalytic activity/Vol] 12 U/L Low 13-35 [facility] Comment on above: Order Comment: Speci men Type: BLOOD SPECIMENOrdering Facility: [facility] Address: [address] [place] [address] Performed By: #### 2 4323-8, 2275-, [place], 79787-7 ####[facility] LABCLIA [id number] [address] [address] [place] Bilirubin [Mass/Vol] 0.3 mg/dL Normal 0.2-1.3 [facility] Comment on above: Order Comment: Speci men Type: BLOOD SPECIMENOrdering Facility: [facility] Address: [address] [place] [address] Performed By: #### 2 4323-8, 2275-, [facility], 38693-9 ####[facility] LABCLIA [id number] [facility] [place] [place] [address] [place] Calcium [Mass/Vol] 8.8 mg/dL Normal 8.5-10.2 [facility] Comment on above: Order Comment: Speci men Type: BLOOD SPECIMENOrdering Facility: [facility] Address: [address] [place] [address] Performed By: #### 2 4323-8, 2275-, [facility], 64824-4 ####[facility] LABCLIA [id number] [place] [address] [place] Chloride [Moles/Vol] 98 mmol/L Normal 97-105 [facility] Comment on above: Order Comment: Speci men Type: BLOOD SPECIMENOrdering Facility: [facility] Address: [address] [place] [address] Performed By: #### 2 4323-8, 2275-, [facility], 69365-8 ####[facility] LABCLIA [id number] [place] [address] [place] CO2 [Moles/Vol] 21 mmol/L Low 22-30 [facility] Comment on above: Order Comment: Speci men Type: BLOOD SPECIMENOrdering Facility: [facility] Address: [address] [place] [address] Performed By: #### 2 4323-8, 2275-, [facility], 18337-2 ####[facility] LABCLIA [id number] [facility] [place] [id number] [place] Creatinine [Mass/Vol] 0.41 mg/dL Low 0.58-0.96 [facility] Comment on above: Order Comment: Speci men Type: BLOOD SPECIMENOrdering Facility: [facility] Address: [address] [place] [address] Performed By: #### 2 4323-8, 2276-4, [place], 07971-7 ####[facility] LABCLIA [id number] [place] [address] [place] Creatinine and Glomerular filtration rate.predicted panel (S/P/Bld) 138 mL/min/1.73m??? Normal >=60 [facility] Comment on above: Order Comment: Dio moreira Type: BLOOD SPECIMENOrdering Facility: [facility] Address: [address] [place] [address] Result Comment: Ofelia mated Glomerular Filtration Rate (eGFR) is calculated using the 2020 CKD-EPI creatinine equation. This equation utilizes serum creatinine, sex, and age as parameters. The creatinine assay has traceable calibration to isotope dilution-mass spectrometry. Refer to KDIGO guidelines for clinical interpretation. In patients with unstable renal function, e.g. those with acute kidney injury, the eGFR may not accurately reflect actual GFR. Performed By: #### 2 4323-8, 2276-4, Rashard, 70400-9 ####[facility] LABCLIA [id number] [place] [id number] [place] Glucose [Mass/Vol] 340 mg/dL High 74-99 [facility] Comment on above: Order Comment: Dio moreira Type: BLOOD SPECIMENOrdering Facility: [facility] Address: [address] [place] [address] Result Comment: The [place] [employer] (ADA) provides guidance for cutoff values for fasting glucose and random glucose. The ADA defines fasting as no caloric intake for at least 8 hours. Fasting plasma glucose results between 100 to 125 mg/dL indicate increased risk for diabetes (prediabetes).Fasting plasma glucose results greater than or equal to 126 mg/dL meet the criteria for diagnosis of diabetes. In the absence of unequivocal hyperglycemia, results should be confirmed by repeat testing. In a patient with classic symptoms of hyperglycemia or hyperglycemic crisis, random plasma glucose results greater than or equal to 200 mg/dL meet the criteria for diagnosis of diabetes.Reference: Standards of Medical Care in Diabetes 2016, [place] [employer]. Diabetes Care. 2016.39(Suppl 1). Performed By: #### 2 4323-8, 2276-4, Rashard, 64259-4 ####[facility] LABCLIA [id number] [address] [address] [place] Potassium [Moles/Vol] 3.9 mmol/L Normal 3.7-5.1 [facility] Comment on above: Order Comment: Speci men Type: BLOOD SPECIMENOrdering Facility: [facility] Address: [address] [place] [address] Performed By: #### 2 4323-8, 2276-4, Rashard, 27311-5 ####[facility] LABIA [id number] [address] [address] [place] Protein [Mass/Vol] 6.7 g/dL Normal 6.3-8.0 [facility] Comment on above: Order Comment: Speci men Type: BLOOD SPECIMENOrdering Facility: [facility] Address: [address] [place] [address] Performed By: #### 2 4323-8, 2276-4, Rashard, 10558-6 ####[facility] LABIA [id number] [place] [id number] [place] Sodium [Moles/Vol] 133 mmol/L Low 136-144 [facility] Comment on above: Order Comment: Speci men Type: BLOOD SPECIMENOrdering Facility: [facility] Address: [address] [place], [place] [address] Performed By: #### 2 4323-8, 6-4, Rashard, 03552-0 ####[facility] LABCLIA [id number] [address] [address] [place] Urea nitrogen [Mass/Vol] 7 mg/dL Normal 7-21 [facility] Comment on above: Order Comment: Speci men Type: BLOOD SPECIMENOrdering Facility: [facility] Address: [address] [place] [address] Performed By: #### 2 4323-8, 2276-4, [facility], 45104-9 ####[facility] LABCLIA [id number] [facility] [id number] [address] [facility] ED NOTEon 02-23-2024 ED NOTE Normal [facility] ED NOTE HNO ID: [id number] Author: DERRICK AVINA LPN Service: Emergency Medicine Author Type: LICENSED NURSE Type: ED Notes Filed: 02/23/2024 13:32 Note Text: Property Assessment Monitor Medicine at bedside Normal [facility] ED NOTE Normal [facility] ED NOTE HNO ID: [id number] Author: THOMAS FORDE RN Service: ? Author Type: Registered Nurse Type: ED Notes Filed: 02/23/2024 07:26 Note Text: Report given to YADI Lopez. Normal [facility] ED NOTE Normal [facility] ED NOTE HNO ID: [id number] Author: THOMAS FORDE RN Service: ? Author Type: Registered Nurse Type: ED Notes Filed: 02/23/2024 04:18 Note Text: First set of Blood Cultures collected at 0415 were actually drawn from the right hand. Normal [facility] ED NOTE HNO ID: [id number] Author: NELLY VALVERDE RN Service: ? Author Type: Registered Nurse Type: ED Notes Filed: 02/23/2024 03:22 Note Text: Bed: E12-02 Expected date: Expected time: Means of arrival: Comments: EMS Normal [facility] ED PROV NOTEon 02-23-2024 ED PROV NOTE Normal [facility] Ferritin SerPl-mCncon 2023 Ferritin [Mass/Vol] 18.8 ng/mL Normal 14.7-205.1 [facility] Comment on above: Order Comment: Speci men Type: BLOOD SPECIMENOrdering Facility: [facility] Address: [address] [place] [address] Performed By: #### 2 4323-8, 2276-4, [facility], 37002-0 ####[facility] LABCLIA [id number] [place] [id number] [place] HISTORY PHYSICALon HISTORY PHYSICAL Normal [facility] Iron and Iron binding capaci ty panelon 02-23-2024 Iron [Mass/Vol] 19 ug/dL Low 41-186 [facility] Comment on above: Order Comment: Speci men Type: BLOOD SPECIMENOrdering Facility: [facility] Address: [address] [place] [address] Performed By: #### 2 4323-8, 2276-4, [facility], 55350-6 ####[facility] LABIA [id number] [place] [address] [place] Iron binding capacity [Mass/Vol] 306 ug/dL Normal 232-386 [facility] Comment on above: Order Comment: Speci men Type: BLOOD SPECIMENOrdering Facility: [facility] Address: [address] [place] [address] Performed By: #### 2 4323-8, 2276-4, [facility], 57904-2 ####[facility] LABIA [id number] [place] [address] [place] Iron/TIBC [Molar ratio] 6.2 % Low 15.0-57.0 [facility] Comment on above: Order Comment: Speci men Type: BLOOD SPECIMENOrdering Facility: [facility] Address: [address] [place] [address] Performed By: #### 2 4323-8, 2276-4, [facility], 24973-3 ####[facility] LABIA [id number] [place] [address] [place] CNPNon 02-22-2024 CNPN Normal [facility] CNPNon 02-19-2024 CNPN Normal [facility] CNOVon 02-05-2024 CNOV Normal [facility] GLUCOSE, BLOOD (POC)on 02-04 Glucose [Mass/Vol] 474 mg/dL Abnormal 74 - 99 mg/dL [facility] Comment on above: Location:[facility], [address] [place] [address], [place], [address] The Accu-Chek Inform II glucose meter has not been approved for testing on patients receiving intensive medical intervention or therapy and results from this point of care glucose test should not be used for patient management decisions in these cases. Inaccurate results may also occur from other interfering factors, such as N-acetylcysteine (blood concentrations of greater than 5mg/dL), galactose, extremes of hematocrit (<10 or >65), or high doses of ascorbic acid (vitamin C) greater than 3mg/dL. Consider alternate testing mechanisms (e.g. core lab, blood gas instrument) in the above situations. Interpretation and review of laboratory results Abnormal [facility] CNPNon 02-04-2024 CNPN Normal [facility] B-HYDROXYBUTYRATEon 02-03-20 24 Beta hydroxybutyrate [Moles/Vol] 0.20 mmol/L Normal <0.28 [facility] Comment on above: Order Comment: Speci men Type: BLOOD SPECIMENOrdering Facility: [facility] Address: [address] [place] [address] Result Comment: This test was developed and its performance characteristics determined by [facility]'s Kehinde Rosas [facility] Pathology and Laboratory Medicine [place] (-[facility]). It has not been cleared or approved by the FDA. [facility] is regulated under CLIA as qualified to perform high-complexity testing. This test is used for clinical purposes. It should not be regarded as investigational or for research. Performed By: #### B , 28041-8 ####[facility] LABCLIA [id number] [facility] [id number], [place] [address] [place] BACTERIAL VAGINOSIS NAATon 0 02-03-2024 Lactobacillus crispatus+gasseri+j ensenii + Gardnerella vaginalis + Atopobium vaginae rRNA KAT[place]NA+probe Ql (Vag fld) Negative Normal Negative for bacterial vaginosis [facility] Comment on above: Order Comment: Speci men Type: SWABOrdering Facility: [facility] Address: [address] [place] [address] Performed By: #### B VAMP, CVTV ####[facility] LABCLIA [id number] [place] [address] [place] JOHANNY/TRICHOMONAS NAATon 0 02-03-2024 C. glabrata RNA KAT[place]NA+probe Ql (Vag fld) Negative Normal Negative for Johanny glabrata [facility] Comment on above: Order Comment: Speci men Type: SWABOrdering Facility: [facility] Address: [address] [place] [address] Performed By: #### B VAMP, CVTV ####[facility]CL[facility] [id number] [place] [address] [place] Johanny sp DNA KAT[place]NA+probe Ql (Vag fld) Positive Abnormal Negative for Johanny species [facility] Comment on above: Order Comment: Speci men Type: SWABOrdering Facility: [facility] Address: [address] [place] [address] Performed By: #### B VAMP, CVTV ####[facility]CL[facility] [id number] [place] [address] [place] T. vaginalis DNA KTA[place]NA+probe Ql (Unsp spec) Negative Normal Negative for Trichomonas vaginalis by amplification [facility] Comment on above: Order Comment: Speci men Type: SWABOrdering Facility: [facility] Address: [address] [place] [address] Performed By: #### B VAMP, CVTV ####[facility]CL[facility] [id number] [place] [address] [place] CBC panel Auto (Bld)on 02-02 Erythrocyte distribution width (RBC) [Ratio] 14.5 % Normal 11.5-15.0 [facility] Comment on above: Order Comment: Speci men Type: BLOOD SPECIMENOrdering Facility: [facility] Address: [address] [place] [address] Performed By: #### 5 8410-2 ####[facility] LABIA [id number] [place] [address] [place] Hematocrit (Bld) [Volume fraction] 31.3 % Low 36.0-46.0 [facility] Comment on above: Order Comment: Speci men Type: BLOOD SPECIMENOrdering Facility: [facility] Address: [address] [place] [address] Performed By: #### 5 8410-2 ####[facility] LABIA [id number] [place] [address] [place] Hemoglobin (Bld) [Mass/Vol] 9.9 g/dL Low 11.5-15.5 [facility] Comment on above: Order Comment: Speci men Type: BLOOD SPECIMENOrdering Facility: [facility] Address: [address] [place] [address] Performed By: #### 5 8410-2 ####[facility] [id number] [place] [address] [place] MCH (RBC) [Entitic mass] 23.8 pg Low 26.0-34.0 [facility] Comment on above: Order Comment: Speci men Type: BLOOD SPECIMENOrdering Facility: [facility] Address: [address] [place] [address] Performed By: #### 5 8410-2 ####[facility] [id number] [place] [address] [place] MCHC (RBC) [Mass/Vol] 31.6 g/dL Normal 30.5-36.0 [facility] Comment on above: Order Comment: Speci men Type: BLOOD SPECIMENOrdering Facility: [facility] Address: [address] [place] [address] Performed By: #### 5 8410-2 ####[facility] [id number] [place] [address] [place] MCV (RBC) [Entitic vol] 75.2 fL Low 80.0-100.0 [facility] Comment on above: Order Comment: Speci men Type: BLOOD SPECIMENOrdering Facility: [facility] Address: [address] [place] [address] Performed By: #### 5 8410-2 ####[facility] LABIA [id number] [place] [address] [place] [place] Nucleated RBC (Bld) [#/Vol] 10*3/uL Normal <0.01 [facility] Comment on above: Order Comment: Speci men Type: BLOOD SPECIMENOrdering Facility: [facility] Address: [address] [place] [address] Performed By: #### 5 8410-2 ####[facility] [id number] [place] [address] [place] Platelet mean volume (Bld) [Entitic vol] 11.1 fL Normal 9.0-12.7 [facility] Comment on above: Order Comment: Speci men Type: BLOOD SPECIMENOrdering Facility: [facility] Address: [address] [place] [address] Performed By: #### 5 8410-2 ####[facility] [id number] [place] [address] [place] Platelets (Bld) [#/Vol] 479 10*3/uL High 150-400 [facility] Comment on above: Order Comment: Speci men Type: BLOOD SPECIMENOrdering Facility: [facility] Address: [address] [place] [address] Performed By: #### 5 8410-2 ####[facility] [id number] [place] [address] [place] RBC (Bld) [#/Vol] 4.16 10*6/uL Normal 3.90-5.20 [facility] Comment on above: Order Comment: Speci men Type: BLOOD SPECIMENOrdering Facility: [facility] Address: [address] [place] [address] Performed By: #### 5 8410-2 ####[facility] [id number] [place] [address] [place] WBC (Bld) [#/Vol] 15.14 10*3/uL High 3.70-11.00 [facility] Comment on above: Order Comment: Speci men Type: BLOOD SPECIMENOrdering Facility: [facility] Address: [address] [place] [address] Performed By: #### 5 8410-2 ####[facility] [id number] [place] [address] [place] Comprehensive metabolic 2000 panelon 02-03-2024 Albumin [Mass/Vol] 3.7 g/dL Low 3.9-4.9 [facility] Comment on above: Order Comment: Speci men Type: BLOOD SPECIMENOrdering Facility: [facility] Address: [address] [place] [address] Performed By: #### B HB, 13890-9 ####[facility] [id number] [place] [address] [place] ALP [Catalytic activity/Vol] 71 U/L Normal 34-123 [facility] Comment on above: Order Comment: Speci men Type: BLOOD SPECIMENOrdering Facility: [facility] Address: [address] [place] [address] Performed By: #### B HB, 83654-6 ####[facility] [id number] [place] [address] [place] ALT [Catalytic activity/Vol] 10 U/L Normal 7-38 [facility] Comment on above: Order Comment: Speci men Type: BLOOD SPECIMENOrdering Facility: [facility] Address: [address] [place] [address] Performed By: #### B HB, 53918-9 ####[facility] [id number] [place] [id number] [place] Anion gap [Moles/Vol] 14 mmol/L Normal 9-18 [facility] Comment on above: Order Comment: Speci men Type: BLOOD SPECIMENOrdering Facility: [facility] Address: [address] [place] [address] Performed By: #### B HB, 50649-1 ####[facility] [id number] [place] [address] [place] AST [Catalytic activity/Vol] 10 U/L Low 13-35 [facility] Comment on above: Order Comment: Speci men Type: BLOOD SPECIMENOrdering Facility: [facility] Address: [address] [place] [address] Performed By: #### B HB, 47757-8 ####[facility] [id number] [place] [address] [place] Bilirubin [Mass/Vol] 0.2 mg/dL Normal 0.2-1.3 [facility] Comment on above: Order Comment: Speci men Type: BLOOD SPECIMENOrdering Facility: [facility] Address: [address] [place] [address] Performed By: #### B HB, 15637-8 ####[facility] [id number] [place] [address] [place] Calcium [Mass/Vol] 9.3 mg/dL Normal 8.5-10.2 [facility] Comment on above: Order Comment: Speci men Type: BLOOD SPECIMENOrdering Facility: [facility] Address: [address] [place] [address] Performed By: #### B HB, 81378-2 ####[facility] [id number] [place] [id number] [place] Chloride [Moles/Vol] 101 mmol/L Normal 97-105 [facility] Comment on above: Order Comment: Speci men Type: BLOOD SPECIMENOrdering Facility: [facility] Address: [address] [place] [address] Performed By: #### Rashard CONRAD, 59667-5 ####[facility] [id number] [place] [address] [place] CO2 [Moles/Vol] 21 mmol/L Low 22-30 [facility] Comment on above: Order Comment: Speci men Type: BLOOD SPECIMENOrdering Facility: [facility] Address: [address] [place] [address] Performed By: #### Rashard CONRAD, 70879-1 ####[facility] [id number] [place] [address] [place] Creatinine [Mass/Vol] 0.35 mg/dL Low 0.58-0.96 [facility] Comment on above: Order Comment: Speci men Type: BLOOD SPECIMENOrdering Facility: [facility] Address: [address] [place] [address] Performed By: #### B HOUSTON, 51801-7 ####[facility] [id number] [address] [place] Creatinine and Glomerular filtration rate.predicted panel (S/P/Bld) 144 mL/min/1.73m??? Normal >=60 [facility] Comment on above: Order Comment: Speci men Type: BLOOD SPECIMENOrdering Facility: [facility] Address: [address] [place] [address] Result Comment: Ofelia mated Glomerular Filtration Rate (eGFR) is calculated using the 2020 CKD-EPI creatinine equation. This equation utilizes serum creatinine, sex, and age as parameters. The creatinine assay has traceable calibration to isotope dilution-mass spectrometry. Refer to KDIGO guidelines for clinical interpretation. In patients with unstable renal function, e.g. those with acute kidney injury, the eGFR may not accurately reflect actual GFR. Performed By: #### B HOUSTON, 37600-1 ####[facility] [id number] [place] [address] [place] Glucose [Mass/Vol] 434 mg/dL High 74-99 [facility] Comment on above: Order Comment: Speci men Type: BLOOD SPECIMENOrdering Facility: [facility] Address: [address] [place] [address] Result Comment: The [place] [employer] (ADA) provides guidance for cutoff values for fasting glucose and random glucose. The ADA defines fasting as no caloric intake for at least 8 hours. Fasting plasma glucose results between 100 to 125 mg/dL indicate increased risk for diabetes (prediabetes).Fasting plasma glucose results greater than or equal to 126 mg/dL meet the criteria for diagnosis of diabetes. In the absence of unequivocal hyperglycemia, results should be confirmed by repeat testing. In a patient with classic symptoms of hyperglycemia or hyperglycemic crisis, random plasma glucose results greater than or equal to 200 mg/dL meet the criteria for diagnosis of diabetes.Reference: Standards of Medical Care in Diabetes 2016, [place] [employer]. Diabetes Care. 2016.39(Suppl 1). Performed By: #### B HB, ####[facility] [id number] [place] [address] [place] Potassium [Moles/Vol] 3.8 mmol/L Normal 3.7-5.1 [facility] Comment on above: Order Comment: Speci men Type: BLOOD SPECIMENOrdering Facility: [facility] Address: [address] [place] [address] Performed By: #### B HB, ####[facility] [id number] [place] [address] [place] Protein [Mass/Vol] 7.6 g/dL Normal 6.3-8.0 [facility] Comment on above: Order Comment: Speci men Type: BLOOD SPECIMENOrdering Facility: [facility] Address: [address] [place] [address] Performed By: #### B HB, ####[facility] [id number] [place] [address] [place] Sodium [Moles/Vol] 136 mmol/L Normal 136-144 [facility] Comment on above: Order Comment: Speci men Type: BLOOD SPECIMENOrdering Facility: [facility] Address: [address] [place] [address] Performed By: #### B HB, 91053-0 ####[facility] [id number] [place] [address] [place] Urea nitrogen [Mass/Vol] 9 mg/dL Normal 7-21 [facility] Comment on above: Order Comment: Speci men Type: BLOOD SPECIMENOrdering Facility: [facility] Address: [address] [place] [address] Performed By: #### B HB, 50735-8 ####[facility] [id number] [place] [address] [place] HISTORY PHYSICALon HISTORY PHYSICAL Normal [facility] NURSING PROGon 02-03-2024 NURSING PROG Normal [facility] CNPNon 01-13-2024 CNPN Normal [facility] CNDSon 01-08-2024 CNDS Normal [facility] CONSULT PROGon 01-08-2024 CONSULT PROG Normal [facility] CASE MGT INIT ASSESon 2023 CASE MGT INIT ASSES Normal [facility] CNPNon 01-07-2024 CNPN Normal [facility] CONSULT PROGon 01-07-2024 CONSULT PROG Normal [facility] Basic metabolic 2000 panelon 01-06-2024 Anion gap [Moles/Vol] 11 mmol/L Normal 9-18 [facility] Comment on above: Order Comment: Speci men Type: BLOOD SPECIMENOrdering Facility: [facility] Address: [address] [place] [address] Performed By: #### 2 4321-2 ####[facility] [id number] [place] [id number] [place] Calcium [Mass/Vol] 8.5 mg/dL Normal 8.5-10.2 [facility] Comment on above: Order Comment: Speci men Type: BLOOD SPECIMENOrdering Facility: [facility] Address: [address] [place] [address] Performed By: #### 2 4321-2 ####[facility] [id number] [place] [address] [place] Chloride [Moles/Vol] 108 mmol/L High 97-105 [facility] Comment on above: Order Comment: Speci men Type: BLOOD SPECIMENOrdering Facility: [facility] Address: [address] [place] [address] Performed By: #### 2 4321-2 ####[facility] [id number] [place] [address] [place] CO2 [Moles/Vol] 17 mmol/L Low 22-30 [facility] Comment on above: Order Comment: Speci men Type: BLOOD SPECIMENOrdering Facility: [facility] Address: [address] [place] [address] Performed By: #### 2 4321-2 ####[facility] [id number] [place] [address] [place] Creatinine [Mass/Vol] 0.51 mg/dL Low 0.58-0.96 [facility] Comment on above: Order Comment: Speci men Type: BLOOD SPECIMENOrdering Facility: [facility] Address: [address] [place] [address] Performed By: #### 2 4321-2 ####[facility] [id number] [place] [address] [place] Creatinine and Glomerular filtration rate.predicted panel (S/P/Bld) 131 mL/min/1.73m??? Normal >=60 [facility] Comment on above: Order Comment: Speci men Type: BLOOD SPECIMENOrdering Facility: [facility] Address: [address] [place] [address] Result Comment: Ofelia mated Glomerular Filtration Rate (eGFR) is calculated using the 2020 CKD-EPI creatinine equation. This equation utilizes serum creatinine, sex, and age as parameters. The creatinine assay has traceable calibration to isotope dilution-mass spectrometry. Refer to KDIGO guidelines for clinical interpretation. In patients with unstable renal function, e.g. those with acute kidney injury, the eGFR may not accurately reflect actual GFR. Performed By: #### 2 4321-2 ####[facility] [id number] [place] [address] [place] Glucose [Mass/Vol] 133 mg/dL High 74-99 [facility] Comment on above: Order Comment: Dio moreira Type: BLOOD SPECIMENOrdering Facility: [facility] Address: [address] [place] [address] Result Comment: The [place] [employer] (ADA) provides guidance for cutoff values for fasting glucose and random glucose. The ADA defines fasting as no caloric intake for at least 8 hours. Fasting plasma glucose results between 100 to 125 mg/dL indicate increased risk for diabetes (prediabetes).Fasting plasma glucose results greater than or equal to 126 mg/dL meet the criteria for diagnosis of diabetes. In the absence of unequivocal hyperglycemia, results should be confirmed by repeat testing. In a patient with classic symptoms of hyperglycemia or hyperglycemic crisis, random plasma glucose results greater than or equal to 200 mg/dL meet the criteria for diagnosis of diabetes.Reference: Standards of Medical Care in Diabetes 2016, [place] [employer]. Diabetes Care. 2016.39(Suppl 1). Performed By: #### 2 4321-2 ####[facility] [id number] [place] [id number] [place] Potassium [Moles/Vol] 4.0 mmol/L Normal 3.7-5.1 [facility] Comment on above: Order Comment: Dio moreira Type: BLOOD SPECIMENOrdering Facility: [facility] Address: [address] [place] [address] Performed By: #### 2 4321-2 ####[facility] [id number] [place] [address] [place] Sodium [Moles/Vol] 136 mmol/L Normal 136-144 [facility] Comment on above: Order Comment: Speci men Type: BLOOD SPECIMENOrdering Facility: [facility] Address: [address] [place] [address] Performed By: #### 2 4321-2 ####[facility] [id number] [place] [address] [place] Urea nitrogen [Mass/Vol] 15 mg/dL Normal 7-21 [facility] Comment on above: Order Comment: Speci men Type: BLOOD SPECIMENOrdering Facility: [facility] Address: [address] [place] [address] Performed By: #### 2 4321-2 ####[facility] [id number] [place] [address] [place] CONSULT PROGon 01-06-2024 CONSULT PROG Normal [facility] Hemoglobin F Kleihauer-Betke method Ql (Bld)on 01-06-2024 % CELLS SEEN 0.00 % cells present Normal < =1.00 [facility] Comment on above: Order Comment: Speci men Type: BLOOD SPECIMENOrdering Facility: [facility] Address: [address] [place] [address] Performed By: #### 3 2140-6 ####[facility] [id number] [place] [address] [place] Hemoglobin F (Bld) [Mass fraction] 0 mL of blood present Normal <=0 [facility] Comment on above: Order Comment: Speci men Type: BLOOD SPECIMENOrdering Facility: [facility] Address: [address] [place] [address] Performed By: #### 3 2140-6 ####[facility] [id number] [place] [address] [place] NURSING PROGon 01-06-2024 NURSING PROG Normal [facility] CBC panel Auto (Bld)on 01-04 Erythrocyte distribution width (RBC) [Ratio] 13.9 % Normal 11.5-15.0 [facility] Comment on above: Order Comment: Speci men Type: BLOOD SPECIMENOrdering Facility: [facility] Address: [address] [place] [address] Performed By: #### 5 8410-2 ####[facility] [id number] [place] [address] [place] Hematocrit (Bld) [Volume fraction] 36.7 % Normal 36.0-46.0 [facility] Comment on above: Order Comment: Speci men Type: BLOOD SPECIMENOrdering Facility: [facility] Address: [address] [place] [address] Performed By: #### 5 8410-2 ####[facility] [id number] [address] [place] Hemoglobin (Bld) [Mass/Vol] 12.0 g/dL Normal 11.5-15.5 [facility] Comment on above: Order Comment: Speci men Type: BLOOD SPECIMENOrdering Facility: [facility] Address: [address] [place] [address] Performed By: #### 5 8410-2 ####[facility] [id number] [place] [address] [place] MCH (RBC) [Entitic mass] 25.5 pg Low 26.0-34.0 [facility] Comment on above: Order Comment: Speci men Type: BLOOD SPECIMENOrdering Facility: [facility] Address: [address] [place] [address] Performed By: #### 5 8410-2 ####[facility] [id number] [place] [address] [place] MCHC (RBC) [Mass/Vol] 32.7 g/dL Normal 30.5-36.0 [facility] Comment on above: Order Comment: Speci men Type: BLOOD SPECIMENOrdering Facility: [facility] Address: [address] [place] [address] Performed By: #### 5 8410-2 ####[facility] [id number] [place] [address] [place] MCV (RBC) [Entitic vol] 77.9 fL Low 80.0-100.0 [facility] Comment on above: Order Comment: Speci men Type: BLOOD SPECIMENOrdering Facility: [facility] Address: [address] [place] [address] Performed By: #### 5 8410-2 ####[facility] [id number] [place] [address] [place] Nucleated RBC (Bld) [#/Vol] 10*3/uL Normal <0.01 [facility] Comment on above: Order Comment: Speci men Type: BLOOD SPECIMENOrdering Facility: [facility] Address: [address] [place] [address] Performed By: #### 5 8410-2 ####[facility] [id number] [place] [address] [place] Platelet mean volume (Bld) [Entitic vol] 12.2 fL Normal 9.0-12.7 [facility] Comment on above: Order Comment: Speci men Type: BLOOD SPECIMENOrdering Facility: [facility] Address: [address] [place] [address] Performed By: #### 5 8410-2 ####[facility] [id number] [place] [address] [place] Platelets (Bld) [#/Vol] 285 10*3/uL Normal 150-400 [facility] Comment on above: Order Comment: Speci men Type: BLOOD SPECIMENOrdering Facility: [facility] Address: [address] [place] [address] Performed By: #### 5 8410-2 ####[facility] [id number] [place] [address] [place] RBC (Bld) [#/Vol] 4.71 10*6/uL Normal 3.90-5.20 [facility] Comment on above: Order Comment: Speci men Type: BLOOD SPECIMENOrdering Facility: [facility] Address: [address] [place] [address] Performed By: #### 5 8410-2 ####[facility] [id number] [place] [address] [place] WBC (Bld) [#/Vol] 17.35 10*3/uL High 3.70-11.00 [facility] Comment on above: Order Comment: Speci men Type: BLOOD SPECIMENOrdering Facility: [facility] Address: [address] [place] [address] Performed By: #### 5 8410-2 ####[facility] [id number] [place] [address] [place] CONSULTon 01-05-2024 CONSULT Normal [facility] NURSING PROGon 01-05-2024 NURSING PROG Normal [facility] NURSING PROG Normal [facility] SOCIAL WORKon 01-05-2024 SOCIAL WORK Normal [facility] ANES POSTPROC EVALon 024 ANES POSTPROC EVAL Normal [facility] ANES PRE-OPon 01-04-2024 ANES PRE-OP Normal [facility] CBC W Auto Differential pane l (Bld)on 01-04-2024 Basophils (Bld) [#/Vol] 0.05 10*3/uL Normal <0.11 [facility] Comment on above: Order Comment: Speci men Type: BLOOD SPECIMENOrdering Facility: [facility] Address: [address] [place] [address] Performed By: #### 5 7021-8 ####[facility] [id number] [place] [address] [place] Basophils/100 WBC (Bld) 0.4 % Normal [facility] Comment on above: Order Comment: Speci men Type: BLOOD SPECIMENOrdering Facility: [facility] Address: [address] [place] [address] Performed By: #### 5 7021-8 ####[facility] [id number] [place] [address] [place] Differential cell count method Nom (Bld) Auto Normal [facility] Comment on above: Order Comment: Speci men Type: BLOOD SPECIMENOrdering Facility: [facility] Address: [address] [place] [address] Performed By: #### 5 7021-8 ####[facility] [id number] [place] [address] [place] Eosinophils (Bld) [#/Vol] 0.14 10*3/uL Normal <0.46 [facility] Comment on above: Order Comment: Speci men Type: BLOOD SPECIMENOrdering Facility: [facility] Address: [address] [place] [address] Performed By: #### 5 7021-8 ####[facility] [id number] [place] [address] [place] Eosinophils/100 WBC (Bld) 1.1 % Normal [facility] Comment on above: Order Comment: Speci men Type: BLOOD SPECIMENOrdering Facility: [facility] Address: [address] [place] [address] Performed By: #### 5 7021-8 ####[facility] [id number] [place] [address] [place] Erythrocyte distribution width (RBC) [Ratio] 14.0 % Normal 11.5-15.0 [facility] Comment on above: Order Comment: Speci men Type: BLOOD SPECIMENOrdering Facility: [facility] Address: [address] [place] [address] Performed By: #### 5 7021-8 ####[facility] [id number] [place] [address] [place] Hematocrit (Bld) [Volume fraction] 38.5 % Normal 36.0-46.0 [facility] Comment on above: Order Comment: Speci men Type: BLOOD SPECIMENOrdering Facility: [facility] Address: [address] [place] [address] Performed By: #### 5 7021-8 ####[facility] [id number] [place] [address] [place] Hemoglobin (Bld) [Mass/Vol] 12.3 g/dL Normal 11.5-15.5 [facility] Comment on above: Order Comment: Speci men Type: BLOOD SPECIMENOrdering Facility: [facility] Address: [address] [place] [address] Performed By: #### 5 7021-8 ####[facility] [id number] [place] [address] [place] Immature granulocytes (Bld) [#/Vol] 0.07 10*3/uL Normal <0.10 [facility] Comment on above: Order Comment: Speci men Type: BLOOD SPECIMENOrdering Facility: [facility] Address: [address] [place] [address] Performed By: #### 5 7021-8 ####[facility] [id number] [place] [address] [place] Immature granulocytes/100 WBC (Bld) 0.6 % Normal [facility] Comment on above: Order Comment: Speci men Type: BLOOD SPECIMENOrdering Facility: [facility] Address: [address] [place] [address] Performed By: #### 5 7021-8 ####[facility] [id number] [place] [address] [place] Lymphocytes (Bld) [#/Vol] 3.15 10*3/uL Normal 1.00-4.00 [facility] Comment on above: Order Comment: Speci men Type: BLOOD SPECIMENOrdering Facility: [facility] Address: [address] [place] [address] Performed By: #### 5 7021-8 ####[facility] [id number] [place] [address] [place] Lymphocytes/100 WBC (Bld) 25.2 % Normal [facility] Comment on above: Order Comment: Speci men Type: BLOOD SPECIMENOrdering Facility: [facility] Address: [address] [place] [address] Performed By: #### 5 7021-8 ####[facility] [id number] [place] [address] [place] MCH (RBC) [Entitic mass] 24.6 pg Low 26.0-34.0 [facility] Comment on above: Order Comment: Speci men Type: BLOOD SPECIMENOrdering Facility: [facility] Address: [address] [place] [address] Performed By: #### 5 7021-8 ####[facility] [id number] [place] [address] [place] MCHC (RBC) [Mass/Vol] 31.9 g/dL Normal 30.5-36.0 [facility] Comment on above: Order Comment: Speci men Type: BLOOD SPECIMENOrdering Facility: [facility] Address: [address] [place] [address] Performed By: #### 5 7021-8 ####[facility] [id number] [place] [address] [place] MCV (RBC) [Entitic vol] 77.0 fL Low 80.0-100.0 [facility] Comment on above: Order Comment: Speci men Type: BLOOD SPECIMENOrdering Facility: [facility] Address: [facility] [place] [address] Performed By: #### 5 7021-8 ####[facility] LABCLIA [id number] [place] [address] [place] Monocytes (Bld) [#/Vol] 0.82 10*3/uL Normal <0.87 [facility] Comment on above: Order Comment: Speci men Type: BLOOD SPECIMENOrdering Facility: [facility] Address: [address] [place] [address] Performed By: #### 5 7021-8 ####[facility] LABCLIA [id number] [place] [address] [place] Monocytes/100 WBC (Bld) 6.6 % Normal [facility] Comment on above: Order Comment: Speci men Type: BLOOD SPECIMENOrdering Facility: [facility] Address: [address] [place] [address] Performed By: #### 5 7021-8 ####[facility] LABCLIA [id number] [place] [address] [place] Neutrophils (Bld) [#/Vol] 8.26 10*3/uL High 1.45-7.50 [facility] Comment on above: Order Comment: Speci men Type: BLOOD SPECIMENOrdering Facility: [facility] Address: [address] [place] [address] Performed By: #### 5 7021-8 ####[facility] LABCLIA [id number] [place] [address] [place] Neutrophils/100 WBC (Bld) 66.1 % Normal [facility] Comment on above: Order Comment: Speci men Type: BLOOD SPECIMENOrdering Facility: [facility] Address: [address] [place] [address] Performed By: #### 5 7021-8 ####[facility] LABCLIA [id number] [place] [address] [place] Nucleated RBC (Bld) [#/Vol] 10*3/uL Normal <0.01 [facility] Comment on above: Order Comment: Speci men Type: BLOOD SPECIMENOrdering Facility: [facility] Address: [address] [place] [address] Performed By: #### 5 7021-8 ####[facility] LABCLIA [id number] [place] [address] [place] Nucleated RBC/100 WBC (Bld) [Ratio] 0.0 /100 WBC Normal [facility] Comment on above: Order Comment: Speci men Type: BLOOD SPECIMENOrdering Facility: [facility] Address: [address] [place] [address] Performed By: #### 5 7021-8 ####[facility] LABIA [id number] [place] [address] [place] Platelet mean volume (Bld) [Entitic vol] 12.1 fL Normal 9.0-12.7 [facility] Comment on above: Order Comment: Speci men Type: BLOOD SPECIMENOrdering Facility: [facility] Address: [address] [place] [address] Performed By: #### 5 7021-8 ####[facility] LABIA [id number] [place] [address] [place] Platelets (Bld) [#/Vol] 366 10*3/uL Normal 150-400 [facility] Comment on above: Order Comment: Speci men Type: BLOOD SPECIMENOrdering Facility: [facility] Address: [address] [place] [address] Performed By: #### 5 7021-8 ####[facility] LABCLIA [id number] [place] [address] [place] RBC (Bld) [#/Vol] 5.00 10*6/uL Normal 3.90-5.20 [facility] Comment on above: Order Comment: Speci men Type: BLOOD SPECIMENOrdering Facility: [facility] Address: [address] [place] [address] Performed By: #### 5 7021-8 ####[facility] LABCLIA [id number] [place] [address] [place] WBC (Bld) [#/Vol] 12.49 10*3/uL High 3.70-11.00 [facility] Comment on above: Order Comment: Speci men Type: BLOOD SPECIMENOrdering Facility: [facility] Address: [address] [place] [address] Performed By: #### 5 7021-8 ####[facility] LABCLIA [id number] [place] [address] [place] CNCOon 01-04-2024 CNCO Letter Text Normal [facility] CNPNon 01-04-2024 CNPN Normal [facility] FETALon 01-04-2024 ++ ------ ++ [facility] Echocardiogram Report ++ ++ NAME: MS. ROSA CERVANTES : 1995 Age: 28 years Due Date: 02/15/2024 Gender: F Study Date: 01/04/2024 10:05:36 AM GA: 34.00 Requested By: Tyrell Pierre MD Diag. Physician: Tyrell Pierre MD Study Location: [place] () Study Quality: Technically difficult -- Diagnosis: O24.813 Other pre-existing diabetes mellitus in , third trimester History: Poorly controlled DM, suboptimal arches/pulmonary veins on prior echo. Indications: Evaluate cardiac size, function, arches and veins. Procedures: 08992, 80207, 11786 Echo, Complete (w/Doppler and color) -- INTERPRETATION SUMMARY Technically challenging due to sub-optimal acoustic windows and movement. 1. Levocardia with normal intracardiac segmental anatomy (S, D, S). 2. No significant atrioventricular valvar regurgitation; normal biphasic inflow pattern. 3. Mild to moderately dilated tricuspid valve annulus (16.2mm/Z +3.79). 4. The right atrium and ventricle are mildly dilated (RV minor 21.4 mm/Arshad Z+2.84, RV major 41.2 mm/Arshad Z+2.89.) Moderate RV hypertrophy, normal systolic function. 5. The left ventricle is apex-forming (LV minor 16.0 mm/Arshad Z+1.18, LV major 32.5 mm/Arshad Z+1.47). Mild left ventricular hypertrophy and normal systolic function. 6. Sub-optimal visualization of the aortic arch. The transverse aortic arch measures normally (4.7 mm/Z-1.42), the aortic isthmus measures normally (sagittal 4.9 mm/Z +0.92), however, there is abnormal aortic arch flow with reversal of flow in the transverse aortic arch. Concern for evolving coarctation of the aorta. 7. Slightly tortuous ductus arteriosus, mild flow acceleration without evidence of 2D narrow (Vmax 1.8 m/s, normal PI > 2.0). 8. 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 9. Pulmonary veins not well seen. 10. No pericardial effusion or evidence of hydrops. Significant polyhydramnios. 11. Normal umbilical artery, triphasic umbilical vein Doppler profile. Could not obtain ductus venosus Doppler. 12. Normal heart rate (154 BPM, NH 100 ms) and rhythm. 13. abdominal circumference measuring large at 41w2d, BPD/FL measuring 35w0d. We reviewed the findings of today's echocardiogram with Ms. Rosa Cervantes and her partner with the help of a diagram. I previously explained normal and cardiac anatomy and physiology. I explained the study was again technically challenging today. I explained I continue to be concerned about the degree of biventricular hypertrophy related to her poorly controlled diabetes. I am also worried there is an evolving coarctation of the aorta based off of the dilation of the RA/RV, the abnormal color Doppler flow in the transverse aortic arch (flow reversal today). In limited views, the transverse aortic arch measures normally today. I discussed Ms. Cervantes's echocardiogram with Dr. Geovani Velasco, and expressed my concern with the triphasic umbilical vein Doppler and significant polyhydramnios. Dr. Velasco opted to perform her scheduled BPP today instead of tomorrow. The fetus scored 8 out of 8 on the BPP. However, due to high risk of demise related to the polyhydramnios, severely uncontrolled maternal diabetes, increasing ventricular hypertrophy, and concern for evolving coarctation of the aorta and possibly mildly hypoplastic aortic valve, we opted to send Ms. Cervantes to the SDU. The OB team will plan for improved glucose control with planned induction of labor/delivery tomorrow. I previously explained the limitations of a echocardiogram, including that the foramen ovale and ductus arteriosus are normal structures and are present in the fetus today, however, we are unable to predict if they close normally after . In addition, we reviewed that certain cardiac anomalies are challenging to diagnose on echocardiography, including atrial septal defects, small ventricular septal defects, minor valve abnormalities, pulmonary vein anomalies and coarctation of the aorta. Based on today's echocardiogram, Assessment 1. Maternal Type II Diabetes Mellitus (poorly controlled/non-compliant) 2. Maternal hypothyroidism, PCOS, asthma 3. Concern for evolving coarctation of the aorta - abnormal Doppler flow 4. Mildly hypoplastic aortic valve 5. Mildly dilated RA/RV 6. Mild left ventricular hypertrophy Plan: Delivery Recommendations: cardiac diagnosis: Poorly controlled maternal diabetes (more content not included)... Normal [facility] Biophysical profile.baldomero dy movement USon 01-04-2024 [facility] HISTORY PHYSICALon HISTORY PHYSICAL Normal [facility] LD NOTEon 01-04-2024 LD NOTE Normal [facility] SURGICAL PATHOLOGYon 024 CASE REPORT Normal [facility] Comment on above: Order Comment: Dio moreira Type: TISSUE SPECIMENOrdering Facility: [facility] Address: [address] [place] [address] Result Comment: Surg [facility] Pathology Report Case: [id number] Provider: Ana Kilpatrick MD Collected: 01/04/2024 10:23 PMOrdering Location: [place] [address] Received: 01/05/2024 07:33 AMPathologist: Pop Arriola MDSpecimen: PLACENTA SINGLE Performed By: #### S ####[facility] LABCLIA [id number] [place] [address] [place] CLINICAL HISTORY 34 week gestation; t ype 2DM, polyhydramnios, possible coarctation of aorta Normal [facility] Comment on above: Order Comment: Dio moreira Type: TISSUE SPECIMENOrdering Facility: [facility] Address: [address] [place] [address] Performed By: #### S ####[facility] LABCLIA [id number] [place] [address] [place] DIAGNOSIS COMMENT Normal [facility] Comment on above: Order Comment: Dio moreira Type: TISSUE SPECIMENOrdering Facility: [facility] Address: [address] [place] [address] Performed By: #### S ####[facility] LABCLIA [id number] [address] [place] FINAL DIAGNOSIS Normal [facility] Comment on above: Order Comment: Speci lillie Type: TISSUE SPECIMENOrdering Facility: [facility] Address: [address] [place] [address] Result Comment: Nena dillard, 34 weeks gestation, section:- Fresh placenta weight 600 grams, very heavy for gestational age (greater than 97th percentile)- Immature chorionic villi with multifocal changes of villous edema/immaturity- Marked increase in nucleated red blood cells in circulation- Multifocal ectatic vessels with focal chorionic plate vessel tear and associated subamniotic hemorrhageAHM 01/06/2024 Performed By: #### S ####[facility] LABCLIA [id number] [address] [place] FINAL PERFORMING LAB Normal [facility] Comment on above: Order Comment: Speci lillie Type: TISSUE SPECIMENOrdering Facility: [facility] Address: [address] [place] [address] Result Comment: Diag nostic interpretation performed at [facility], [address] [place] [address] CLIA# [id number] Director: Bakari Blackwood M.D. Performed By: #### S ####[facility] LABCLIA [id number] [address] [place] GROSS DESCRIPTION Normal [facility] Comment on above: Order Comment: Breannei lillie Type: TISSUE SPECIMENOrdering Facility: [facility] Address: [address] [place] [address] Result Comment: Nena DILLARD SINGLEReceived fresh, labeled send a single is a single placental disc with attached umbilical cord and membranes. The rene-henderson umbilical cord measures 38 cm in length by 1.5 cm in maximum diameter. It displays 12 coils along its length. The umbilical cord inserts centrally, 7.5 cm from the peripheral margin and contains 3 vessels on cut section. The pink-rene, glistening membranes attach normally at the disc margin for 100% of the circumference. The area of membrane rupture is located 11 cm from the closest edge. The round trimmed placental disc weighs 559.8 g and measures 20.4 x 19 x 3 cm. The surface is blue-henderson glistening with normal dispersion of chorionic plate vessels and multifocal areas of subchorionic fibrin deposition. There are 2 areas of focal subamniotic hemorrhage measuring 4 x 3.5 cm (1.5 cm from the disc margin and 2 x 1.3 cm (7 cm from the disc margin). The smaller area of hemorrhage is located at the base of the umbilical cord insertion and demonstrates a superficial tear with adjacent dilated vessels. No tears are identified adjacent to the larger area of hemorrhage. The maternal surface is intact. Serial sectioning through placental disc at 1 cm intervals reveals a red, rubbery laminated area measuring 1.3 x 1 x 0.6 cm, located 7.5 cm from the nearest placental edge. Also identified is a 2.5 x 2 x 1 cm rene-red laminated area located 8.3 cm from the nearest placental edge. The remaining cut surfaces are red, soft and spongy with no other discrete lesions identified. Steam Finisher sections are submitted as follows:A1 umbilical cord, end, and two membrane rollsA2 umbilical cord, placental end, and chorionic plate section near cord insertionA3-A4 central placenta, one full-thickness section in each cassette (A4 bisected)A5 chorionic plate section with hemorrhagic area and tearA6 dark red laminated areaA7 rene laminated areaKSZ January 05, 2024 2:05 PMGross examination performed at [facility], [address] [place] [address] Performed By: #### S ####[facility] LABCLIA [id number] [place] [address] [place] MICROSCOPIC DESCRIPTION Normal [facility] Comment on above: Order Comment: Speci men Type: TISSUE SPECIMENOrdering Facility: [facility] Address: [address] [place] [address] Result Comment: Umbi lical cord: 3 vessels, no abnormalitiesFetal membranes: Chorionic trophoblast with clear cell changeMembranous decidua: No abnormalitiesChorionic plate: No abnormalitiesChorionic plate vasculature: Focal tear with subamniotic extension of hemorrhage (A5); luminal fibrin (A2); multifocal ectatic, empty appearance with thin vessel wallsStem villi: Focal intramural fibrin deposition; multifocal ectasiaTerminal villi: Immature with multifocal changes of villous edema/immaturity (enlarged pale villi); markedly increased nucleated red blood cells in circulation (48 in 10 high-power boyd); multifocal low-grade chronic villitis, lymphohistiocytic type, subchorionic and basal distribution with associated avascular villi-overall less than 5% of the villous parenchyma is affected; occasional small foci of villous agglutinationIntervillous space: Extravillous trophoblast lined subchorionic cysts; subchorionic fibrin (A6, A7)Basal plate/decidua basalis: No abnormalities, no maternal spiral arteries sampled Performed By: #### S ####[facility] LABCLIA [id number] [place] [address] [place] TYPE + SCREEN PRENATALon ABO A Normal [facility] Comment on above: Order Comment: Speci men Type: BLOOD SPECIMENOrdering Facility: [facility] Address: [address] [place] [address] Performed By: #### T SPN ####[facility] BLOOD BANKIA [id number] [place] [address] [place] HISTORICAL AB SCR STATUS Negative Normal [facility] Comment on above: Order Comment: Speci men Type: BLOOD SPECIMENOrdering Facility: [facility] Address: [address] [place] [address] Performed By: #### T SPN ####[facility] BLOOD BANKCLIA [id number] [place] [address] [place] Rh Nom (Bld) Positive Normal [facility] Comment on above: Order Comment: Speci men Type: BLOOD SPECIMENOrdering Facility: [facility] Address: [address] [place] [address] Performed By: #### T SPN ####[facility] BLOOD BANKIA [id number] [place] [address] [place] TYPE AND SCREEN EXPIRATION 01/07/2024 23:59 Normal [facility] Comment on above: Order Comment: Speci men Type: BLOOD SPECIMENOrdering Facility: [facility] Address: [address] [place] [address] Performed By: #### T SPN ####[facility] BLOOD BANKCLIA [id number] [place] [address] [place] CNPNon 01-01-2024 CNPN Normal [facility] Biophysical profile.baldomero dy movement USon 12-29-2023 [facility] BACTERIAL VAGINOSIS NAATon 0 12-28-2023 Lactobacillus crispatus+gasseri+j ensenii + Gardnerella vaginalis + Atopobium vaginae rRNA [place]+probe Ql (Vag fld) Negative Normal Negative for bacterial vaginosis [facility] Comment on above: Order Comment: Speci men Type: SWABOrdering Facility: [facility] Address: [address] [place] [address] Performed By: #### C VTV, BVAMP ####[facility] LABCLIA [id number] [place] [address] [place] JOHANNY/TRICHOMONAS NAATon 0 12-28-2023 C. glabrata RNA [place]+probe Ql (Vag fld) Negative Normal Negative for Johanny glabrata [facility] Comment on above: Order Comment: Speci men Type: SWABOrdering Facility: [facility] Address: [address] [place] [address] Performed By: #### C VTV, BVAMP ####[facility] LABCLIA [id number] [place] [address] [place] Johanny sp DNA [place]+probe Ql (Vag fld) Positive Abnormal Negative for Johanny species [facility] Comment on above: Order Comment: Speci men Type: SWABOrdering Facility: [facility] Address: [address] [place] [address] Performed By: #### C VTV, BVAMP ####[facility] LABCLIA [id number] [place] [address] [place] T. vaginalis DNA [place]+probe Ql (Unsp spec) Negative Normal Negative for Trichomonas vaginalis by amplification [facility] Comment on above: Order Comment: Speci men Type: SWABOrdering Facility: [facility] Address: [address] [place] [address] Performed By: #### C VTV, BVAMP ####[facility] LABCLIA [id number] [place] [address] [place] CNPNon 12-25-2023 CNPN Normal [facility] Biophysical profile.baldomero dy movement USon 12-25-2023 [facility] 12-22-2023 CNPN Normal [facility] Examination level ultrasound on 12-22-2023 [facility] URINE OB DIP B/Oon 4 Glucose Ql (U) 500 mg/dL Neg mg/dL [facility] Protein.monoclonal (U) [Mass/Vol] Negative Neg mg/dL [facility] 12-18-2023 CNPN Normal [facility] URINE OB DIP B/Oon 4 Glucose Ql (U) 250 mg/dL Neg mg/dL [facility] Protein.monoclonal (U) [Mass/Vol] trace Neg mg/dL [facility] Biophysical profile.baldomero dy movement USon 12-15-2023 [facility] 12-04-2023 [facility]NPN [facility] C[facility]N [facility] HbA1c (Bld)on 12-03-2023 Average glucose Estimated from glycated hemoglobin (Bld) [Mass/Vol] 183 mg/dL [facility] HbA1c (Bld) [Mass fraction] 8.0 % High 4.3 - 5.6 % [facility] Average glucose Estimated from glycated hemoglobin (Bld) [Mass/Vol] 183 mg/dL Normal [facility] Comment on above: Order Comment: Speci men Type: BLOOD SPECIMENOrdering Facility: [facility] Address: [address] [place] [address] Result Comment: eAG: (Estimated average glucose) is a calculated value from HgbA1c and is customer retention representative of the average blood glucose level in the last 2-3 month period. Performed By: #### 5 5454-3 ####[facility] LABIA [id number] [place] [address] [place] HbA1c (Bld) [Mass fraction] 8.0 % High 4.3-5.6 [facility] Comment on above: Order Comment: Dio moreira Type: BLOOD SPECIMENOrdering Facility: [facility] Address: [address] [place] [address] Result Comment: [place] Diabetes Association guidelines indicate that patients with HgbA1c in the range 5.7-6.4% are at increased risk for development of diabetes, and intervention by lifestyle modification may be beneficial. HgbA1c greater or equal to 6.5% is considered diagnostic of diabetes. Performed By: #### 5 5454-3 ####[facility] LABIA [id number] [address] [place] TSH BLDon 12-03-2023 TSH Qn 5.160 m[IU]/L High 0.270 - 4.200 mIU/L [facility] TSH SerPl-aCncon 12-03-2023 TSH Qn 5.160 m[IU]/L High 0.270-4.200 [facility] Comment on above: Order Comment: Dio moreira Type: BLOOD SPECIMENOrdering Facility: [facility] Address: [address] [place] [address] Result Comment: If t he patient is , TSH reference range varies by gestational period:First Trimester (weeks 9-12): 0.180-2.990 mIU/LSecond Trimester: 0.110-3.980 mIU/LThird Trimester: 0.480-4.710 mIU/Tabitha Torres et al. A Practical Approach for the Verifications and Determination of Site- and Trimester-Specific Reference Intervals for Thyroid Function tests in . Thyroid, 2019:29:3:412-420. Reymundo Smith, et al. 2017 Guidelines of the [place] Thyroid Association for the Diagnosis and Management of Thyroid Disease during and the . Thyroid, 2017:27:3:315-389. Performed By: #### 3 016-3 ####[facility] LABCHRISTIANO [id number] [place] [id number] [place] URINE OB DIP B/Oon Glucose Ql (U) 250 mg/dL Neg mg/dL [facility] Protein.monoclonal (U) [Mass/Vol] trace Neg mg/dL [facility] CNPNon 12-01-2023 CNPN Telephone ([facility]) -- ROSA CERVANTES ([id number]) 1995 F Date Time Provider Department 12/01/23 PALOMO ISAAC [facility] During your visit today, we recorded the following information about you: Palomo Isaac RN 12/01/2023 8:53 AM Signed Vm left with my contact info to schedule Rosa for a MFM appt and a FU echo Allergies As of Date: 12/01/2023 Noted Allergy Reaction AMOXICILLIN 05/23/2019 2 - Rash MOLD 05/23/2019 2 - Rash RED DYE 05/23/2019 2 - Rash WHEAT 07/18/2014 2 - Rash Date Reviewed: 11/30/2023 Reviewed by: Tyrell Pierre MD - Fully Assessed Reason for Visit: Appointment [186] Prescriptions as of 12/01/2023 - levothyroxine (SYNTHROID) 200 mcg tablet Take 1 tablet by mouth once daily. - aspirin 81 mg chewable tablet Take 1 tablet by mouth once daily. - sodium chloride 0.65 % nasal spray Use 1 [place] in the nose as needed for cold/allergy symptoms. - guaiFENesin (MUCINEX) 600 mg 12 hr tablet Take 2 tablets by mouth two times a day as needed for cold/allergy symptoms. - insulin NPH (HUMULIN N NPH INSULIN KWIKPEN) 100 unit/mL (3 mL) injection pen Inject 30 Units subcutaneously daily with breakfast AND 48 Units daily at bedtime. - insulin lispro (HUMALOG KWIKPEN) 100 unit/mL Inject 22 Units subcutaneously three times a day before meals. - Insulin [place], Disposable, (PEN NEEDLE) 32 gauge x 5/32 Use to inject insulin up to 8 times per day. - Blood-Glucose Sensor (FREESTYLE ELIANE 3 SENSOR) osman Use as instructed. - albuterol HFA (PROVENTIL HFA, VENTOLIN HFA) 90 mcg/actuation inhaler Inhale 2 Puffs as instructed every 4 hours as needed for wheezing/shortness of breath. - Insulin [place], Disposable, (PEN NEEDLE) 32 gauge x 5/32 Use to inject insulin up to 8 times per day. - insulin aspart U-100 (NOVOLOG FLEXPEN U-100 INSULIN) 100 unit/mL (3 mL) Inject 3 Units subcutaneously three times a day before meals. - Insulin [place], Disposable, (BD ULTRAFINE III MINI PEN) 31 gauge x 3/16 1 Each four times daily. USE WITH INSULIN PENS/ BYETTA PENS 4 TIMES DAILY - promethazine (PHENERGAN) 25 mg tablet Take 0.5-1 tablets by mouth every 6 hours as needed. - blood sugar diagnostic test strip Use as directed to check glucose levels up to seven times daily. - Lancets lancets Use as directed to check glucose levels up to seven times daily. - alcohol swabs (ALCOHOL PREP PADS) Use as directed to check glucose levels up to seven times daily. - VIT [id number] ORAL Take by mouth. - famotidine (PEPCID) 20 mg tablet Take 20 mg by mouth twice daily. - metFORMIN (GLUCOPHAGE) 500 mg tablet Take 1 tablet by mouth twice daily with meals. Problem List As Of Date 12/01/2023 Noted Resolved Encounter for supervision of high risk pregnanc*05/23/2019 07/12/2019 with type 2 diabetes mellitus in [place]*05/23/2019 History of hypothyroidism [Z86.39] 05/23/2019 05/24/2019 History of depression [Z86.59] 05/23/2019 07/06/2023 History of herpes genitalis [Z86.19] 05/23/2019 Family history of congenital heart defect [Z82.*05/23/2019 07/12/2019 Type 2 diabetes mellitus without complication (*11/03/2011 Severe obesity (HCC) [E66.01] 01/25/2014 Pure hypercholesterolemia [E78.00] 01/23/2012 Pure hyperglyceridemia [E78.1] 11/03/2011 10/09/2023 Other specified hypothyroidism [E03.8] 05/24/2019 Herpes simplex vulvovaginitis [A60.04] 05/24/2019 Diabetes (HCC) [E11.9] 05/27/2019 07/06/2023 Supervision of high risk due to socia*07/01/2023 Poorly controlled diabetes mellitus (HCC) [E11.*07/01/2023 with history of section, ant*07/01/2023 Obesity in [O99.210] 07/01/2023 UTI (urinary tract infection) in , ant*07/01/2023 07/06/2023 Disorder of blood glucose [R73.09] 10/08/2023 COVID-19 affecting in second trimeste*10/09/2023 Asthma affecting in second trimester *10/09/2023 21 weeks gestation of [Z3A.21] 10/09/2023 Encounter Status:Closed by PALOMO ISAAC on 12/01/23 [facility] FETALon 11-30-2023 ++ ------ ++ [facility] Echocardiogram Report ++ ++ NAME: MS. ROSA CERVANTES : 1995 Age: 28 years Due Date: 02/15/2024 Gender: F Study Date: 11/30/2023 10:13:08 AM GA: 29.00 Requested By: Tyrell Pierre MD Diag. Physician: Tyrell Pierre MD Study Location: [place] () Study Quality: The images were of adequate diagnostic quality -- Diagnosis: O24.813 Other pre-existing diabetes mellitus in , third trimester History: Sub-optimal cardiac views, uncontrolled diabetes mellitus. Indications: Aortic arch and pulmonary veins not well seen on prior echocardiogram. Procedures: 63965, 01264, 73641 Echo, Complete (w/Doppler and color) -- INTERPRETATION SUMMARY Technically challenging due to sub-optimal acoustic windows and movement. 1. Levocardia with normal intracardiac segmental anatomy (S, D, S). 2. No major intracardiac structural defects. 3. No significant atrioventricular valvar regurgitation; normal biphasic inflow pattern. 4. The right atrium and ventricle are mildly dilated (RV minor 17.6 mm/Arshad Z+2.99, RV major 28.6 mm/Arshad Z+1.91.) Normal wall thickness, normal systolic function. 5. The left ventricle is apex-forming (LV major 27.7 mm/Arshad Z+1.69) with mildly hypoplastic LV minor dimension related to mild left ventricular hypertrophy (LV minor 7.7 mm/Arshad Z-2.18.) Normal systolic function. 6. Left-sided aortic and ductal arches. 7. The transverse aortic arch measures mildly hypoplastic (3.3 mm/Z-2.30), the aortic isthmus measures normally (sagittal 3.2 mm/Z-1.51), sub-optimal 3VV. There is abnormal aortic arch flow with flow acceleration (Vmax 1.66 m/s) and diastolic continuation of flow suggestive of possibly evolving coarctation of the aorta. 8. One left and one right-sided pulmonary vein connect to left atrium. 9. Foramen ovale with normal intrauterine right to left flow. 10. No pericardial effusion or evidence of hydrops. 11. Normal umbilical artery/vein and ductus venosus Doppler profiles. 12. Normal heart rate (146 BPM, NH 117 ms) and rhythm. We reviewed the findings of today's echocardiogram with Ms. Rosa Cervantes and her spouse with the help of a diagram. I previously explained normal and cardiac anatomy and physiology. I explained the study was again technically challenging today. Today the transverse aortic arch measures mildly hypoplastic with an abnormal Doppler flow profile. There is also mild dilation of the RA/RV and mild left ventricular hypertrophy. I am concerned for possible evolving coarctation of the aorta. Ms. Cervantes has an appointment with the OB team as well as her Manufacturing Chief Engineer on 12/03/23. I reinforced the importance of checking her glucose and maintaining excellent glucose control during . We previously discussed the risk for developing ventricular hypertrophy due to the high glucose levels. We discussed the natural history of diabetes-related LVH and discussed that in severe cases the heart has issues with ventricular filling and rarely outflow obstruction. Postnatally, some infants require medication (beta blockers) to slow the heart rate to augment ventricular filling or medications to support ventricular function (inotropes). Thankfully, postnatally the hypertrophy improves with time. We will plan for a repeat echocardiogram in 4-5 weeks to re-evaluate the degree of ventricular hypertrophy, RA/RV size, and aortic arch dimension/Dopplers. I previously explained the limitations of a echocardiogram, including that the foramen ovale and ductus arteriosus are normal structures and are present in the fetus today, however, we are unable to predict if they close normally after . In addition, we reviewed that certain cardiac anomalies are challenging to diagnose on echocardiography, including atrial septal defects, small ventricular septal defects, minor valve abnormalities, pulmonary vein anomalies and coarctation of the aorta. Based on today's echocardiogram, Assessment 1. Maternal Type II Diabetes Mellitus (poorly controlled/non-compliant) 2. Maternal hypothyroidism, PCOS, asthma 3. 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 Mildly dilated RA/RV 5. Mild left ventricular hypertrophy Plan: 1. We will plan for a repeat echocardiogram in 4-5 weeks to re-evaluate the degree of ventricular hypertrophy, RA/RV size, and aortic arch dimension/Dopplers. 2. Regular follow up with the MFM/obste (more content not included)... Normal [facility] CNPNon 11-20-2023 CNPN Normal [facility] CNPNon 11-19-2023 CNPN Normal [facility] Examination level ultrasound on 11-18-2023 [facility] URINE OB DIP B/Oon 4 Glucose Ql (U) 1000 mg/dL Neg mg/dL [facility] Protein.monoclonal (U) [Mass/Vol] trace Neg mg/dL [facility] CBC W Auto Differential pane l (Bld)on 11-10-2023 Basophils (Bld) [#/Vol] 0.07 10*3/uL Normal <0.11 [facility] Comment on above: Order Comment: Speci men Type: BLOOD SPECIMENOrdering Facility: [facility] Address: [address] [place] [address] Performed By: #### 5 7021-8 ####[facility] [id number] [place] [address] [place] Basophils/100 WBC (Bld) 0.5 % Normal [facility] Comment on above: Order Comment: Speci men Type: BLOOD SPECIMENOrdering Facility: [facility] Address: [address] [place] [address] Performed By: #### 5 7021-8 ####[facility] MILLWNCLIA [id number] [place] [address] [place] Differential cell count method Nom (Bld) Auto Normal [facility] Comment on above: Order Comment: Speci men Type: BLOOD SPECIMENOrdering Facility: [facility] Address: [address] [place] [address] Performed By: #### 5 7021-8 ####[facility] [id number] [place] [address] [place] Eosinophils (Bld) [#/Vol] 0.20 10*3/uL Normal <0.46 [facility] Comment on above: Order Comment: Speci men Type: BLOOD SPECIMENOrdering Facility: [facility] Address: [address] [place] [address] Performed By: #### 5 7021-8 ####[facility] [id number] [place] [address] [place] Eosinophils/100 WBC (Bld) 1.3 % Normal [facility] Comment on above: Order Comment: Speci men Type: BLOOD SPECIMENOrdering Facility: [facility] Address: [address] [place] [address] Performed By: #### 5 7021-8 ####[facility] [id number] [place] [address] [place] Erythrocyte distribution width (RBC) [Ratio] 13.3 % Normal 11.5-15.0 [facility] Comment on above: Order Comment: Speci men Type: BLOOD SPECIMENOrdering Facility: [facility] Address: [address] [place] [address] Performed By: #### 5 7021-8 ####[facility]ITALNCLIA [id number] [place] [address] [place] Hematocrit (Bld) [Volume fraction] 35.9 % Low 36.0-46.0 [facility] Comment on above: Order Comment: Speci men Type: BLOOD SPECIMENOrdering Facility: [facility] Address: [address] [place] [address] Performed By: #### 5 7021-8 ####[facility]ITALNCLI [id number] [place] [address] [place] Hemoglobin (Bld) [Mass/Vol] 12.2 g/dL Normal 11.5-15.5 [facility] Comment on above: Order Comment: Speci men Type: BLOOD SPECIMENOrdering Facility: [facility] Address: [address] [place] [address] Performed By: #### 5 7021-8 ####[facility] SILVIACORRINE [id number] [place] [address] [place] Immature granulocytes (Bld) [#/Vol] 0.10 10*3/uL High <0.10 [facility] Comment on above: Order Comment: Speci men Type: BLOOD SPECIMENOrdering Facility: [facility] Address: [address] [place] [address] Performed By: #### 5 7021-8 ####[facility] [id number] [place] [address] [place] Immature granulocytes/100 WBC (Bld) 0.7 % Normal [facility] Comment on above: Order Comment: Speci men Type: BLOOD SPECIMENOrdering Facility: [facility] Address: [address] [place] [address] Performed By: #### 5 7021-8 ####[facility] [id number] [place] [address] [place] Lymphocytes (Bld) [#/Vol] 2.61 10*3/uL Normal 1.00-4.00 [facility] Comment on above: Order Comment: Speci men Type: BLOOD SPECIMENOrdering Facility: [facility] Address: [address] [place] [address] Performed By: #### 5 7021-8 ####[facility] ROOMA [id number] [place] [address] [place] Lymphocytes/100 WBC (Bld) 17.1 % Normal [facility] Comment on above: Order Comment: Speci men Type: BLOOD SPECIMENOrdering Facility: [facility] Address: [address] [place] [address] Performed By: #### 5 7021-8 ####[facility]ITALNCLIA [id number] [place] [address] [place] MCH (RBC) [Entitic mass] 27.2 pg Normal 26.0-34.0 [facility] Comment on above: Order Comment: Speci men Type: BLOOD SPECIMENOrdering Facility: [facility] Address: [address] [place] [address] Performed By: #### 5 7021-8 ####[facility] [id number] [place] [address] [place] MCHC (RBC) [Mass/Vol] 34.0 g/dL Normal 30.5-36.0 [facility] Comment on above: Order Comment: Speci men Type: BLOOD SPECIMENOrdering Facility: [facility] Address: [address] [place] [address] Performed By: #### 5 7021-8 ####[facility] [id number] [place] [address] [place] MCV (RBC) [Entitic vol] 80.1 fL Normal 80.0-100.0 [facility] Comment on above: Order Comment: Speci men Type: BLOOD SPECIMENOrdering Facility: [facility] Address: [address] [place] [address] Performed By: #### 5 7021-8 ####[facility] [id number] [place] [address] [place] Monocytes (Bld) [#/Vol] 1.02 10*3/uL High <0.87 [facility] Comment on above: Order Comment: Speci men Type: BLOOD SPECIMENOrdering Facility: [facility] Address: [address] [place] [address] Performed By: #### 5 7021-8 ####[facility] [id number] [place] [address] [place] Monocytes/100 WBC (Bld) 6.7 % Normal [facility] Comment on above: Order Comment: Speci men Type: BLOOD SPECIMENOrdering Facility: [facility] Address: [address] [place] [address] Performed By: #### 5 7021-8 ####[facility] [id number] [place] [address] [place] Neutrophils (Bld) [#/Vol] 11.22 10*3/uL High 1.45-7.50 [facility] Comment on above: Order Comment: Speci men Type: BLOOD SPECIMENOrdering Facility: [facility] Address: [address] [place] [address] Performed By: #### 5 7021-8 ####[facility] [id number] [place] [address] [place] Neutrophils/100 WBC (Bld) 73.7 % Normal [facility] Comment on above: Order Comment: Speci men Type: BLOOD SPECIMENOrdering Facility: [facility] Address: [address] [place] [address] Performed By: #### 5 7021-8 ####[facility] [id number] [place] [address] [place] Nucleated RBC (Bld) [#/Vol] 10*3/uL Normal <0.01 [facility] Comment on above: Order Comment: Speci men Type: BLOOD SPECIMENOrdering Facility: [facility] Address: [address] [place] [address] Performed By: #### 5 7021-8 ####[facility] [id number] [place] [address] [place] Nucleated RBC/100 WBC (Bld) [Ratio] 0.0 /100 WBC Normal [facility] Comment on above: Order Comment: Speci men Type: BLOOD SPECIMENOrdering Facility: [facility] Address: [address] [place] [address] Performed By: #### 5 7021-8 ####[facility] RYLIE [id number] [place] [address] [place] Platelet mean volume (Bld) [Entitic vol] 11.1 fL Normal 9.0-12.7 [facility] Comment on above: Order Comment: Speci men Type: BLOOD SPECIMENOrdering Facility: [facility] Address: [address] [place] [address] Performed By: #### 5 7021-8 ####[facility] HOSPITALADRIANNEJimmie [id number] [place] [address] [place] Platelets (Bld) [#/Vol] 352 10*3/uL Normal 150-400 [facility] Comment on above: Order Comment: Speci men Type: BLOOD SPECIMENOrdering Facility: [facility] Address: [address] [place] [address] Performed By: #### 5 7021-8 ####[facility] HOSPITALNCVERAA [id number] [place] [address] [place] RBC (Bld) [#/Vol] 4.48 10*6/uL Normal 3.90-5.20 [facility] Comment on above: Order Comment: Speci men Type: BLOOD SPECIMENOrdering Facility: [facility] Address: [address] [place] [address] Performed By: #### 5 7021-8 ####[facility] H[facility]ITALNCLIA [id number] [place] [address] [place] WBC (Bld) [#/Vol] 15.22 10*3/uL High 3.70-11.00 [facility] Comment on above: Order Comment: Speci men Type: BLOOD SPECIMENOrdering Facility: [facility] Address: [address] [place] [address] Performed By: #### 5 7021-8 ####[facility] [id number] [place] [address] [place] Reagin and Treponema pallidu m IgG and IgM [Interp]on 11-10-2023 T. pallidum IgG+IgM IA Ql (S) Non-Reactive Normal Nonreactive [facility] Comment on above: Order Comment: Breannei lillie Type: BLOOD SPECIMENOrdering Facility: [facility] Address: [address] [place] [address] Performed By: #### 7 3752-8 ####[facility] LABIA [id number] [place] [address] [place] Reagin+T pallidum IgG+IgM Se rPl-Impon 11-10-2023 Reagin and Treponema pallidum IgG and IgM [Interp] Cannot exclude recent Treponemal infection if specimen collected within 7-10 days after appearance of suspect lesions or 2-3 weeks after an exposure. Clinical correlation is required. Normal [facility] Comment on above: Order Comment: Dio moreira Type: BLOOD SPECIMENOrdering Facility: [facility] Address: [address] [place] [address] Performed By: #### 7 3752-8 ####[facility] LABIA [id number] [place] [address] [place] FETALon 11-02-2023 ++ ------ ++ [facility] Echocardiogram Report ++ ++ NAME: MS. ROSA CERVANTES : 1995 Age: 28 years Due Date: 02/15/2024 Gender: F Study Date: 11/02/2023 10:15:08 AM GA: 25.00 Requested By: Dory Jurado. Physician: Tyrell Pierre MD Study Location: [place] () Study Quality: technically difficult and adequate -- Diagnosis: O24.812 Other pre-existing diabetes mellitus in , second trimester History: Poorly controlled diabetes mellitus. Indications: Evaluate cardiac anatomy and function. Procedures: 45677, 35277, 46828 Echo, Complete (w/Doppler and color) -- INTERPRETATION SUMMARY Technically challenging due to sub-optimal acoustic windows and movement. 1. Levocardia with normal intracardiac segmental anatomy (S, D, S). 2. No major intracardiac structural defects. 3. No significant atrioventricular valvar regurgitation; normal biphasic inflow pattern. 4. Normal left-sided aortic and ductal arches. 5. Normal aortic isthmus 2.9 mm on sagittal view (Pasquini z-score -0.09); sub-optimal 3VV. 6. Normal biventricular size, wall thickness, and systolic function. No significant right/left ventricular size discrepancy. 7. Only one left-sided pulmonary vein connect to left atrium. 8. Normal systemic venous connections. 9. Foramen ovale with normal intrauterine right to left flow. 10. No pericardial effusion or evidence of hydrops. 11. Normal umbilical artery/vein, ductus venosus, and MCA Doppler profiles. 12. Normal heart rate (147 BPM, NH 117 ms) and rhythm. We reviewed the findings of today's echocardiogram with . Rosa Cervantes and her spouse with the help of a diagram. I explained normal and cardiac anatomy and physiology. I explained the study was technically challenging today. Overall the cardiac anatomy appears normal. There were suboptimal views of the aortic arch and we were unable to obtain the 3VV. On Doppler velocities and limited 2D sagittal measurements, the arch appears normal. There is no apparent ventricular hypertrophy. We discussed the importance of excellent glucose control during and the risk for developing ventricular hypertrophy due to the high glucose levels. We discussed the natural history of diabetes-related LVH and discussed that in severe cases the heart has issues with ventricular filling and rarely outflow obstruction. Postnatally, some infants require medication (beta blockers) to slow the heart rate to augment ventricular filling or medications to support ventricular function (inotropes). Thankfully, postnatally the hypertrophy improves with time. I explained there is no ventricular hypertrophy present today. With tight glucose control this will remain stable, however, we will plan for a repeat echocardiogram in 4-6 weeks to re-evaluate the degree of hypertrophy. There were suboptimal views of the pulmonary veins and aortic arch. I also explained the limitations of a echocardiogram, including that the foramen ovale and ductus arteriosus are normal structures and are present in the fetus today, however, we are unable to predict if they close normally after . In addition, we reviewed that certain cardiac anomalies are challenging to diagnose on echocardiography, including atrial septal defects, small ventricular septal defects, minor valve abnormalities, pulmonary vein anomalies and coarctation of the aorta. Based on today's echocardiogram, Assessment 1. Maternal Type II Diabetes Mellitus (poorly controlled) 2. Maternal hypothyroidism, PCOS, asthma 3. Normal intracardiac segmental anatomy, no major intracardiac structural defects Plan: 1. We will plan for a repeat echocardiogram in 4-6 weeks to re-evaluate the degree of hypertrophy. There were suboptimal views of the pulmonary veins and aortic arch. 2. Regular follow up with the MFM/obstetric service as scheduled. Please see [facility] for complete consult documentation. MEASUREMENTS: MV Annulus, diam: 0.56 cm Z score: -1.41 Pulmonary Valve Value PV Peak Velocity 0.76 m/s PV Peak Grad 2.3 mmHg PV Mean Velocity 0.480 m/s PV Mean Grad 1.1 mmHg PV VTI 0.094 m PV Ejection Time 197 msec PV Annulus: 0.56 cm Z Score: 0.61 TV Annulus d A/P: 0.77 cm Zscore: 0.84 Ao Asc: 0.41 cm Zscore: -1.21 Ao Isthmus: Z score: -0.99 Ao Annulus: 0.43 cm Z score: -0.04 Transv Ao: 0.38 cm Z score: -0.23 Ao Desc: 0.40 cm Zscore: -0.53 Aortic valve Ao V Vmax 0.50 m/s Ao V Peak Grad 1.0 mmHg Ao V Mean Velocity 0.320 m/s Ao V (more content not included)... Normal [facility] 10-22-2023 [facility] Normal [facility] 10-13-2023 [facility] Telephone ([facility]) -- ROSA CERVANTES ([id number]) 1995 F Date Time Provider Department 10/13/23 PALOMO ISAAC [facility] During your visit today, we recorded the following information about you: Palomo Isaac RN 10/13/2023 3:07 PM Signed Rosa called in to reschedule her missed echo. She is agreeable to date and time offered 10/20/23 Allergies As of Date: 10/13/2023 Noted Allergy Reaction AMOXICILLIN 05/23/2019 2 - Rash MOLD 05/23/2019 2 - Rash RED DYE 05/23/2019 2 - Rash WHEAT 07/18/2014 2 - Rash Date Reviewed: 10/10/2023 Reviewed by: Susan Garcia, YADI - Fully Assessed Reason for Visit: Appointment [186] Prescriptions as of 10/13/2023 - levothyroxine (SYNTHROID) 200 mcg tablet Take 1 tablet by mouth once daily. - aspirin 81 mg chewable tablet Take 1 tablet by mouth once daily. - sodium chloride 0.65 % nasal spray Use 1 [place] in the nose as needed for cold/allergy symptoms. - guaiFENesin (MUCINEX) 600 mg 12 hr tablet Take 2 tablets by mouth two times a day as needed for cold/allergy symptoms. - insulin NPH (HUMULIN N NPH INSULIN KWIKPEN) 100 unit/mL (3 mL) injection pen Inject 30 Units subcutaneously daily with breakfast AND 48 Units daily at bedtime. - insulin lispro (HUMALOG KWIKPEN) 100 unit/mL Inject 22 Units subcutaneously three times a day before meals. - Insulin [place], Disposable, (PEN NEEDLE) 32 gauge x 5/32 Use to inject insulin up to 8 times per day. - nirmatrelvir tablet 300 mg (150 mg x 2) and ritonavir tablet 100 mg in a dose pack (PAXLOVID) Administer TWO pink nirmatrelvir 150 mg tablets and ONE white ritonavir 100 mg tablet for a total of three tablets twice daily. - Blood-Glucose Sensor (FREESTYLE ELIANE 3 SENSOR) osman Use as instructed. - albuterol HFA (PROVENTIL HFA, VENTOLIN HFA) 90 mcg/actuation inhaler Inhale 2 Puffs as instructed every 4 hours as needed for wheezing/shortness of breath. - Insulin [place], Disposable, (PEN NEEDLE) 32 gauge x 5/32 Use to inject insulin up to 8 times per day. - insulin aspart U-100 (NOVOLOG FLEXPEN U-100 INSULIN) 100 unit/mL (3 mL) Inject 3 Units subcutaneously three times a day before meals. - Insulin [place], Disposable, (BD ULTRAFINE III MINI PEN) 31 gauge x 3/16 1 Each four times daily. USE WITH INSULIN PENS/ BYETTA PENS 4 TIMES DAILY - promethazine (PHENERGAN) 25 mg tablet Take 0.5-1 tablets by mouth every 6 hours as needed. - blood sugar diagnostic test strip Use as directed to check glucose levels up to seven times daily. - Lancets lancets Use as directed to check glucose levels up to seven times daily. - alcohol swabs (ALCOHOL PREP PADS) Use as directed to check glucose levels up to seven times daily. - VIT 55-[id number]-[id number]-DHA ORAL Take by mouth. - famotidine (PEPCID) 20 mg tablet Take 20 mg by mouth twice daily. - metFORMIN (GLUCOPHAGE) 500 mg tablet Take 1 tablet by mouth twice daily with meals. Problem List As Of Date 10/13/2023 Noted Resolved Encounter for supervision of high risk pregnanc*05/23/2019 07/12/2019 with type 2 diabetes mellitus in [place]*05/23/2019 History of hypothyroidism [Z86.39] 05/23/2019 05/24/2019 History of depression [Z86.59] 05/23/2019 07/06/2023 History of herpes genitalis [Z86.19] 05/23/2019 Family history of congenital heart defect [Z82.*05/23/2019 07/12/2019 Type 2 diabetes mellitus without complication (*11/03/2011 Severe obesity (HCC) [E66.01] 01/25/2014 Pure hypercholesterolemia [E78.00] 01/23/2012 Pure hyperglyceridemia [E78.1] 11/03/2011 10/09/2023 Other specified hypothyroidism [E03.8] 05/24/2019 Herpes simplex vulvovaginitis [A60.04] 05/24/2019 Diabetes (HCC) [E11.9] 05/27/2019 07/06/2023 Supervision of high risk due to socia*07/01/2023 Poorly controlled diabetes mellitus (HCC) [E11.*07/01/2023 with history of section, ant*07/01/2023 Obesity affecting , antepartum [O99.21*07/01/2023 UTI (urinary tract infection) in , ant*07/01/2023 07/06/2023 Disorder of blood glucose [R73.09] 10/08/2023 COVID-19 affecting in second trimeste*10/09/2023 Asthma affecting in second trimester *10/09/2023 21 weeks gestation of [Z3A.21] 10/09/2023 Encounter Status:Closed by PALOMO ISAAC on 10/13/23 [facility] CNDSon 10-10-2023 [facility] HNO ID: [id number] Author: BISI WILCOX MD Service: Obstetrics Author Type: Physician Type: Discharge Summary Filed: 10/12/2023 14:16 Note Text: DISCHARGE SUMMARY OBSTETRICS PATIENT NAME: Rosa Cervantes ADMISSION DATE: 10/08/2023 DISCHARGE DATE: 10/10/2023 Attending Physician: Bisi Wilcox MD Code Status: Not on file Treatment Team: Attending Provider: Bisi Wilcox MD Consulting: Jabier Weems DO Maternal Obstetric Provider: Juan David De Leon Reason for Hospitalization: Intrauterine . Principal Problem: Disorder of blood glucose (POA: Yes) Active Problems: with type 2 diabetes mellitus in second trimester (POA: Yes) Other specified hypothyroidism (POA: Yes) Poorly controlled diabetes mellitus (HCC) (POA: Yes) COVID-19 affecting in second trimester (POA: Unknown) Asthma affecting in second trimester (POA: Unknown) 21 weeks gestation of (POA: Unknown) Resolved Problems: * No resolved hospital problems. * PROCEDURES/SURGERY DURING HOSPITALIZATION (if applicable) Hospital Course: 28 year old with a GA of 21w5d admitted for glycemic control in the setting of poorly controlled type 2 diabetes in . She admitted to not taking insulin or synthroid regularly. She was previously followed by endocrinology but had not been compliant with checking or sending in values. TSH was noted to be high but synthroid dose was maintained since she admitted to non compliance prior to admission. Recommend follow up evaluation of tsh in 4 weeks if complaint. Endocrinology, diabetes education and nutrition were consulted as patient admitted to some knowledge deficits. CGM was placed and endocrinology increased her insulin and planned to evaluate levels one week post discharge. She was re consulted about MFM re risks of diabetes in . A baseline 24 hour urine protein was collected. She was started on low dose aspirin for preeclampsia prevention. echo and growth ultrasounds were scheduled as outpatient follow up. She already had follow up with her primary ob team in [place] planned. During her stay, she had mild URI symptoms for 5 days and tested positive for Covid and was put on isolation. Offered paxlovid and this was started. She did not have evidence of any respiratory compromise. Consulting Teams During Hospitalization: Endocrinology, Nutrition, Diabetes education . Patient Condition @ Discharge: Good Discharge Disposition: Home/Self Care Information Provided to Patient: Diet Instructions Resume your pre-hospital diet Carb control diet recommended Specific Concerns for Follow-up Post Discharge: Routine care and type 2 diabetes in management Discharge Medications: Medication List START taking these medications aspirin 81 mg chewable tablet Take 1 tablet by mouth once daily. guaiFENesin 600 mg 12 hr tablet Commonly known as: MUCINEX Take 2 tablets by mouth two times a day as needed for cold/allergy symptoms. PAXLOVID 300 mg (150 mg x 2)-100 mg tablets in a dose pack Generic drug: nirmatrelvir and ritonavir Administer TWO pink nirmatrelvir 150 mg tablets and ONE white ritonavir 100 mg tablet for a total of three tablets twice daily. sodium chloride 0.65 % nasal spray Use 1 [place] in the nose as needed for cold/allergy symptoms. CHANGE how you take these medications HumuLIN N NPH Insulin KwikPen 100 unit/mL (3 mL) injection pen Generic drug: insulin NPH Inject 30 Units subcutaneously daily with breakfast AND 48 Units daily at bedtime. What changed: See the new instructions. insulin lispro 100 unit/mL Commonly known as: HumaLOG KWIKPEN Inject 22 Units subcutaneously three times a day before meals. What changed: how much to take how to take this when to take this additional instructions * Insulin [place] (Disposable) 31 gauge x 3/16 Commonly known as: BD Ultrafine III Mini Pen 1 Each four times daily. USE WITH INSULIN PENS/ BYETTA PENS 4 TIMES DAILY What changed: Another medication with the same name was added. Make sure you understand how and when to take each. * Insulin [place] (Disposable) 32 gauge x 5/32 Commonly known as: PEN NEEDLE Use to inject insulin up to 8 times per day. What changed: Another medication with the same name was added. Make sure you understand how and when to take each. * Insulin [place] (Disposable) 32 gauge x 5/32 Commonly known as: PEN NEEDLE Use to inject insulin up to 8 times per day. What changed: You were already taking a medication with the same name, and this prescription was added. Make sure you understand how and when to take each. * This list has 3 medication(s) that are the same as other medications prescribed for you. Read the directions carefully, and ask your doctor or other care provider to review them with you. CONTINUE taking these medications albuterol H (more content not included)... Normal [facility] Prot 24h Ur-mRateon 10-10-19 24 Protein (24H U) [Mass/Time] 0.23 g/24 Hr High <0.15 [facility] Comment on above: Order Comment: Speci men Type: TIMED URINE SPECIMEN Ordering Facility: [facility] Address: [address] [place] [address] Result Comment: Adul t Proteinuria Categories: <0.15 g/24 hours is considered normal to mildly increased 0.15 - 0.50 g/24 hours is considered moderately increased >0.50 g/24 hours is considered severely increased KDIGO. (2013). KDIGO 2012 Clinical Practice Guideline for the Evaluation and Management of Chronic Kidney Disease. Official Journal of the International Society of Nephrology, 3(1), 1-150. Performed By: #### 2 889-4 #### [facility] CLIA [id number] [address] [place] [address] LABORATORY CLIA [id number] [address] [place] [address] [place] Protein (24H U) [Mass/Time]o n 10-10-2023 PERIOD (HRS) 24 hr Normal [facility] Comment on above: Order Comment: Speci men Type: TIMED URINE SPECIMEN Ordering Facility: [facility] Address: [address] [place] [address] Performed By: #### 2 889-4 #### [facility] CLIA [id number] [address] [place] [address] LABORATORY CLIA [id number] [address] [place] [address] [place] Specimen volume (24H U) 2.5 L Normal [facility] Comment on above: Order Comment: Speci men Type: TIMED URINE SPECIMEN Ordering Facility: [facility] Address: [address] [place] [address] Performed By: #### 2 889-4 #### [facility] CLIA [id number] [address] [place] [address] LABORATORY CLIA [id number] [address] [place] [address] [facility] 10-09-2023 [facility] HNO ID: [id number] Author: ROSA SMITH RN Service: Infection Prevention Author Type: Registered Nurse Type: Allied Health Filed: 10/09/2023 14:54 Note Text: ISOLATION NOTE Admission Date: 10/08/2023 Type of Isolation Recommended: Contact and Droplet Precautions Plus Eyewear ([place] Isolation Sign) Indication: COVID-19 Maintain Contact/Droplet and Eyewear isolation signage Remain in private room or cohort when deemed appropriate Don an N95 (or PAPR) prior to entering the patient room Avoid entering room during aerosol generating procedure when possible Restrict room access to essential personnel only Contact Infection Prevention prior to discontinuing precautions when criteria are met Limit transport and movement of the patient to medically necessary purposes Date Isolation Initiated: 10/09/23 Anticipated Duration of Isolation: In consultation with Infection Prevention Type and Date of Positive Test(s): 10/09/23 PCR SIGNATURE: Rosa Smith RN PATIENT NAME: Rosa Cervantes DATE: October 09, 2023 TIME: 2:53 PM PAGER/CONTACT #: [phone] Infection Prevention after hours/weekend pager: [phone] [facility] CONSULT PROGon 10-09-2023 CONSULT PROG HNO ID: [id number] Author: SONU LINO MD Service: Endocrinology Author Type: Physician Type: Consult Progress Note Filed: 10/09/2023 09:22 Note Text: ENDOCRINOLOGY INPATIENT PROGRESS NOTE SERVICE DATE: 10/09/2023 SERVICE TIME: 9:16 AM INTERVAL HPI: Anxious late last night which she notes can increase her BG Rosa Cervantes is a 28 year old female admitted on 10/08/2023 for glucose control. Endocrinology is consulted for glycemic management. Diagnosed with Type 2 diabetes mellitus 2018. Followed by Dr Weems for their diabetes management. Pertinent medical history of: DM2, hypothyroidism. Pertinent diagnoses present on admission: DM, 21w3d Outpatient Diabetes Regimen: NPH 25u in AM and 50u in PM Humalog 20u TID [facility] Inpatient Medications: Current Facility-Administered Medications Medication Dose Route Frequency Provider Last Rate Last Admin acyclovir 400 mg tab(s) (ZOVIRAX) 400 mg ORAL TID Gianna Moody MD insulin NPH 45 Units injection (intermediate acting) 45 Units SUBCUTANEOUS AT BEDTIME Sonu Lino MD albuterol HFA 90 mcg/actuation 2 Puff (PROVENTIL HFA, VENTOLIN HFA) 2 Puff INHALATION q 4 H PRN Gianna Moody MD levothyroxine 200 mcg tab(s) (SYNTHROID) 200 mcg ORAL DAILY Gianna Moody MD 200 mcg at 10/09/23 0631 acetaminophen 1,000 mg tab(s) (TYLENOL) 1,000 mg ORAL Pre-Op PRN Gianna Moody MD sodium citrate-citric acid 500-334 mg/5 mL 30 mL oral liquid (BICITRA) 30 mL ORAL Pre-Op PRN Gianna Moody MD metoclopramide HCl 10 mg injection (REGLAN) 10 mg INTRAVENOUS Pre-Op PRN Gianna Moody MD NaCl 0.9% iv flush bag 20 mL INTRAVENOUS PRN Gianna Moody MD multivitamin 28 mg iron- 800 mcg 1 tablet (CLASSIC ) 1 tablet ORAL DAILY Gianna Moody MD 1 tablet at 10/09/23 0908 ondansetron (PF) 4 mg injection (ZOFRAN) 4 mg INTRAVENOUS q 6 H PRN Gianna Moody MD metoclopramide HCl 10 mg tab(s) (REGLAN) 10 mg ORAL q 6 H PRN Gianna Moody MD Or metoclopramide HCl 10 mg injection (REGLAN) 10 mg INTRAVENOUS q 6 H PRN Gianna Moody MD acetaminophen 650 mg tab(s) (TYLENOL) 650 mg ORAL q 4 H PRN Gianna Moody MD ceFAZolin 3 g in D5W 100 mL (ANCEF) 3 g INTRAVENOUS Pre-Op PRN Gianna Moody MD azithromycin 500 mg in D5W 250 mL Vial-Bag (ZITHROMAX) 500 mg INTRAVENOUS Pre-Op PRN Gianna Moody MD dextrose 40 % 15 g 15 g ORAL PRN Gianna Moody MD Or glucagon 1 mg injection 1 mg INTRAMUSCULAR PRN Gianna Moody MD Or dextrose 10% iv bolus 12.5 g INTRAVENOUS PRN Gianna Moody MD insulin lispro injection (rapid acting) (ADMElog) SUBCUTANEOUS w MEALS Sonu Lino MD 1 Units at 10/08/23 1845 insulin lispro 20 Units injection (rapid acting) (ADMElog) 20 Units SUBCUTANEOUS w MEALS Sonu Lino MD 20 Units at 10/08/23 1844 insulin NPH 25 Units injection (intermediate acting) 25 Units SUBCUTANEOUS DAILY Sonu Lino MD 25 Units at 10/09/23 0907 PHYSICAL EXAM: BP 111/56 Pulse 91 Temp 36.8 ?C (98.2 ?F) (Oral) Resp 18 Ht 160 cm (5' 3 ) Wt 109 kg (240 lb 4.8 oz) LMP 05/06/2023 (Exact Date) BMI 42.57 kg/m? General Appearance: Well appearing Affect: Pleasant and cooperative Respiratory: Respirations even and unlabored Neuro: Alert and oriented, no focal deficits, no tremor noted, no involuntary movements LABS AND IMAGING: Hemoglobin A1C (%) Date Value 2023 7.7 07/06/2023 10.1 05/25/2019 7.5 BMP Latest Ref Rng AND Units 10/08/2023 07/06/2023 05/27/2019 GLUCOSE 74 - 99 mg/dL 156(H) 262(H) 129(H) BUN 7 - 21 mg/dL 5(L) 8 10 CREATININE 0.58 - 0.96 mg/dL 0.35(L) 0.32(L) 0.50(L) SODIUM 136 - 144 mmol/L 138 133(L) 138 POTASSIUM 3.7 - 5.1 mmol/L 3.8 4.2 4.0 CHLORIDE 97 - 105 mmol/L 105 101 106 CO2 22 - 30 mmol/L 19(L) 16(L) 17(L) ANION GAP 9 - 18 mmol/L 14 16 15 CALCIUM, TOTAL 8.5 - 10.2 mg/dL 9.2 9.5 9.8 eGFR >=60 mL/min/1.73m? 144 148 >60 EGFR- >60 - - >60 EGFR-ALL OTHER RACES >60 . - - >60 Hospital glucose readings: Glucose, Point of Care (mg/dL) Date/Time Value 10/09/2023 0907 128 (A) 10/08/2023 2326 149 (A) 10/08/2023 2217 144 (A) 10/08/2023 1843 124 (A) 10/08/2023 1603 153 (A) 10/08/2023 1317 199 (A) IMPRESSION / RECOMMENDATIONS: 28yo WF with DM2 since 2019, currently 21w3d , hypothyroidism, admitted on 10/08/2023 for glucose control, endocrine consulted for DM management Reviewed CGMS data from yesterday and overnight, glycemic control in evening was excellent, then with mild spike in BG last night which may have been due to reported anxiety, following by drop in glucose after receiving bedtime NPH. Overall, so far appears that inadequate glycemic control as outpatient is due to non-adherence/inconsistenc y with insulin regimen Recommendations: - Adjust Basal Insulin: NPH 25u in AM (will receive first dose of this today so will see how this goes) and lower to 45u in PM - Continue Prandial Insulin:Admelog 20 units with meals three times daily - Start S (more content not included)... Normal [facility] FLUABV+SARS-CoV-2+RSV Pnl Re sp [place]AT[place]NA+probeon 10-09-2023 FLUABV+SARS-CoV-2+R SV Pnl Resp [place]AT[place]NA+probe COVID 19 RESULT: Detected The method used is RT-PCR or an equivalent NAAT method. Reference Range(the expected result in uninfected individuals): Not detected INFLUENZA A PCR: Not detected INFLUENZA B PCR: Not detected RSV PCR: Not detected Abnormal [facility] Comment on above: Performed By: #### 9 5941-1 ####[facility] [id number] [address] [facility] NURSING PROGon 10-09-2023 NURSING PROG HNO ID: [id number] Author: PATY AMADOR, RN Service: Nursing Author Type: Registered Nurse Type: Nursing Progress Note Filed: 10/08/2023 23:34 Note Text: Patient called out stating her blood sugar on her phone was dropping. This RN went into room, patient requested her blood sugar be checked. Her phone was stating a blood sugar of 96-104. This RN did an accucheck per pt. request and blood sugar was 149. NPH previously given. Will pass on to dayshift team that discussion with Endo needs to be had about making sure her monitor is calibrated corrected before she is discharged home. Normal [facility] PT EDon 10-09-2023 PT ED HNO ID: [id number] Author: PATY DEVI RD Service: Nutrition Therapy Author Type: Registered Dietitian Type: Patient Education Filed: 10/09/2023 14:03 Note Text: NUTRITION THERAPY PATIENT EDUCATION SERVICE DATE: 10/09/2023 SERVICE TIME: 1:56 PM 28 yo female with poorly controlled T2DM and EGA 21w4d. TOPIC: Diet: Carb Consistent. Discussed with Endocrinology. At this time a Carb Consistent diet is preferred over a Gestational Diabetic Diet. Will monitor. LEARNING ASSESSMENT Individuals Assessed: Patient and Significant Other Preferred Learning Method: No Preference Barriers to Learning: None Evident LEARNING RESPONSE Instruction Provided to: Patient and Significant Other Patient / Family Response: Verbalizes Understanding Method of Instruction: Individual instruction Written instruction - handouts Material(s) Provided to Patient: Healthy You: Diabetes and Follow-Up Plan: Follow up with outpatient endocrinology dietitian Referral (Recommendation): Nutrition - Outpatient. Saw Dietitian 07/27. Was recommended to follow up every 3-4 weeks. Would benefit from continued support. MNT Billing: $ Initial Assessment: 16-30 minutes SIGNATURE: Paty Devi RD PATIENT NAME: Rosa Cervantes DATE: October 09, 2023 TIME: 1:56 PM PAGER: Normal [facility] TSH SerPl-aCncon 10-09-2023 TSH Qn 6.670 m[IU]/L High 0.270-4.200 [facility] Comment on above: Order Comment: Speci men Type: BLOOD SPECIMEN Ordering Facility: [facility] Address: [address] [place] [address] Result Comment: If t he patient is , TSH reference range varies by gestational period: First Trimester (weeks 9-12): 0.180-2.990 mIU/L Second Trimester: 0.110-3.980 mIU/L Third Trimester: 0.480-4.710 mIU/L Jose Torres et al. A Practical Approach for the Verifications and Determination of Site- and Trimester-Specific Reference Intervals for Thyroid Function tests in . Thyroid, 2019:29:3:412-420. Reymundo Smith, et al. 2017 Guidelines of the [place] Thyroid Association for the Diagnosis and Management of Thyroid Disease during and the . Thyroid, 2017:27:3:315-389. Performed By: #### 3 016-3 #### [facility] CLIA [id number] [place] [address] [place] Basic metabolic 2000 panelon 10-08-2023 Anion gap [Moles/Vol] 14 mmol/L Normal 9-18 [facility] Comment on above: Order Comment: Speci men Type: BLOOD SPECIMEN Ordering Facility: [facility] Address: [address] [place] [address] Performed By: #### 2 4321-2 #### [facility] CLIA [id number] [address] [place] [address] [place] Calcium [Mass/Vol] 9.2 mg/dL Normal 8.5-10.2 [facility] Comment on above: Order Comment: Speci men Type: BLOOD SPECIMEN Ordering Facility: [facility] Address: [address] [place] [address] Performed By: #### 2 4321-2 #### [facility] CLIA [id number] [address] [place] [address] [place] Chloride [Moles/Vol] 105 mmol/L Normal 97-105 [facility] Comment on above: Order Comment: Speci men Type: BLOOD SPECIMEN Ordering Facility: [facility] Address: [address] [place] [address] Performed By: #### 2 4321-2 #### [facility] CLIA [id number] [address] [place] [address] [place] CO2 [Moles/Vol] 19 mmol/L Low 22-30 [facility] Comment on above: Order Comment: Speci men Type: BLOOD SPECIMEN Ordering Facility: [facility] Address: [address] [place] [address] Performed By: #### 2 4321-2 #### [facility] CLIA [id number] [address] [place] [address] [place] Creatinine [Mass/Vol] 0.35 mg/dL Low 0.58-0.96 [facility] Comment on above: Order Comment: Speci men Type: BLOOD SPECIMEN Ordering Facility: [facility] Address: [address] [place] [address] Performed By: #### 2 4321-2 #### [facility] CLIA [id number] [address] [place] [address] [place] Creatinine and Glomerular filtration rate.predicted panel (S/P/Bld) 144 mL/min/1.73m??? Normal >=60 [facility] Comment on above: Order Comment: Dio moreira Type: BLOOD SPECIMEN Ordering Facility: [facility] Address: [address] [place] [address] Result Comment: Ofelia mated Glomerular Filtration Rate (eGFR) is calculated using the 2020 CKD-EPI creatinine equation. This equation utilizes serum creatinine, sex, and age as parameters. The creatinine assay has traceable calibration to isotope dilution-mass spectrometry. Refer to KDIGO guidelines for clinical interpretation. In patients with unstable renal function, e.g. those with acute kidney injury, the eGFR may not accurately reflect actual GFR. Performed By: #### 2 4321-2 #### [facility] CLIA [id number] [place] [address] [place] Glucose [Mass/Vol] 156 mg/dL High 74-99 [facility] Comment on above: Order Comment: Dio moreira Type: BLOOD SPECIMEN Ordering Facility: [facility] Address: [address] [place] [address] Result Comment: The [place] Diabetes Association (ADA) provides guidance for cutoff values for fasting glucose and random glucose. The ADA defines fasting as no caloric intake for at least 8 hours. Fasting plasma glucose results between 100 to 125 mg/dL indicate increased risk for diabetes (prediabetes). Fasting plasma glucose results greater than or equal to 126 mg/dL meet the criteria for diagnosis of diabetes. In the absence of unequivocal hyperglycemia, results should be confirmed by repeat testing. In a patient with classic symptoms of hyperglycemia or hyperglycemic crisis, random plasma glucose results greater than or equal to 200 mg/dL meet the criteria for diagnosis of diabetes. Reference: Standards of Medical Care in Diabetes 2016, [place] Diabetes Association. Diabetes Care. 2016.39(Suppl 1). Performed By: #### 2 4321-2 #### [facility] CLIA [id number] [place] [address] [place] Potassium [Moles/Vol] 3.8 mmol/L Normal 3.7-5.1 [facility] Comment on above: Order Comment: Dio moreira Type: BLOOD SPECIMEN Ordering Facility: [facility] Address: [address] [place] [address] Performed By: #### 2 4321-2 #### [facility] CLIA [id number] [address] [place] [address] [place] Sodium [Moles/Vol] 138 mmol/L Normal 136-144 [facility] Comment on above: Order Comment: Speci men Type: BLOOD SPECIMEN Ordering Facility: [facility] Address: [address] [place] [address] Performed By: #### 2 4321-2 #### [facility] CLIA [id number] [address] [place] [address] [place] Urea nitrogen [Mass/Vol] 5 mg/dL Low 7-21 [facility] Comment on above: Order Comment: Speci men Type: BLOOD SPECIMEN Ordering Facility: [facility] Address: [address] [place] [address] Performed By: #### 2 4321-2 #### [facility] CLIA [id number] [address] [place] [address] [place] CBC W Auto Differential pane l (Bld)on 10-08-2023 Basophils (Bld) [#/Vol] 0.04 10*3/uL Normal <0.11 [facility] Comment on above: Order Comment: Speci men Type: BLOOD SPECIMEN Ordering Facility: [facility] Address: [address] [place] [address] Performed By: #### 5 7021-8 #### [facility] CLIA [id number] [address] [place] [address] [place] Basophils/100 WBC (Bld) 0.4 % Normal [facility] Comment on above: Order Comment: Speci men Type: BLOOD SPECIMEN Ordering Facility: [facility] Address: [address] [place] [address] Performed By: #### 5 7021-8 #### [facility] CLIA [id number] [address] [place] [address] [place] Differential cell count method Nom (Bld) Auto Normal [facility] Comment on above: Order Comment: Speci men Type: BLOOD SPECIMEN Ordering Facility: [facility] Address: [address] [place] [address] Performed By: #### 5 7021-8 #### [facility] CLIA [id number] [address] [place] [address] [place] Eosinophils (Bld) [#/Vol] 0.07 10*3/uL Normal <0.46 [facility] Comment on above: Order Comment: Speci men Type: BLOOD SPECIMEN Ordering Facility: [facility] Address: [address] [place] [address] Performed By: #### 5 7021-8 #### [facility] CLIA [id number] [address] [place] [address] [place] Eosinophils/100 WBC (Bld) 0.7 % Normal [facility] Comment on above: Order Comment: Speci men Type: BLOOD SPECIMEN Ordering Facility: [facility] Address: [address] [place] [address] Performed By: #### 5 7021-8 #### [facility] CLIA [id number] [address] [place] [address] [place] Erythrocyte distribution width (RBC) [Ratio] 12.9 % Normal 11.5-15.0 [facility] Comment on above: Order Comment: Speci men Type: BLOOD SPECIMEN Ordering Facility: [facility] Address: [address] [place] [address] Performed By: #### 5 7021-8 #### [facility] CLIA [id number] [address] [place] [address] [place] Hematocrit (Bld) [Volume fraction] 36.0 % Normal 36.0-46.0 [facility] Comment on above: Order Comment: Speci men Type: BLOOD SPECIMEN Ordering Facility: [facility] Address: [address] [place] [address] Performed By: #### 5 7021-8 #### [facility] CLIA [id number] [address] [place] [address] [place] Hemoglobin (Bld) [Mass/Vol] 12.4 g/dL Normal 11.5-15.5 [facility] Comment on above: Order Comment: Speci men Type: BLOOD SPECIMEN Ordering Facility: [facility] Address: [address] [place] [address] Performed By: #### 5 7021-8 #### [facility] CLIA [id number] [address] [place] [address] [place] Immature granulocytes (Bld) [#/Vol] 0.06 10*3/uL Normal <0.10 [facility] Comment on above: Order Comment: Speci men Type: BLOOD SPECIMEN Ordering Facility: [facility] Address: [address] [place] [address] Performed By: #### 5 7021-8 #### [facility] CLIA [id number] [address] [place] [address] OF [place] Immature granulocytes/100 WBC (Bld) 0.6 % Normal [facility] Comment on above: Order Comment: Speci men Type: BLOOD SPECIMEN Ordering Facility: [facility] Address: [address] [place] [address] Performed By: #### 5 7021-8 #### [facility] CLIA [id number] [address] [place] [address] [place] Lymphocytes (Bld) [#/Vol] 1.85 10*3/uL Normal 1.00-4.00 [facility] Comment on above: Order Comment: Speci men Type: BLOOD SPECIMEN Ordering Facility: [facility] Address: [address] [place] [address] Performed By: #### 5 7021-8 #### [facility] CLIA [id number] [address] [place] [address] [place] Lymphocytes/100 WBC (Bld) 18.6 % Normal [facility] Comment on above: Order Comment: Speci men Type: BLOOD SPECIMEN Ordering Facility: [facility] Address: [address] [place] [address] Performed By: #### 5 7021-8 #### [facility] CLIA [id number] [address] [place] [address] [place] MCH (RBC) [Entitic mass] 27.9 pg Normal 26.0-34.0 [facility] Comment on above: Order Comment: Speci men Type: BLOOD SPECIMEN Ordering Facility: [facility] Address: [address] [place] [address] Performed By: #### 5 7021-8 #### [facility] CLIA [id number] [address] [place] [address] [place] MCHC (RBC) [Mass/Vol] 34.4 g/dL Normal 30.5-36.0 [facility] Comment on above: Order Comment: Speci men Type: BLOOD SPECIMEN Ordering Facility: [facility] Address: [address] [place] [address] Performed By: #### 5 7021-8 #### [facility] CLIA [id number] [address] [place] [address] [place] MCV (RBC) [Entitic vol] 80.9 fL Normal 80.0-100.0 [facility] Comment on above: Order Comment: Speci men Type: BLOOD SPECIMEN Ordering Facility: [facility] Address: [address] [place] [address] Performed By: #### 5 7021-8 #### [facility] CLIA [id number] [address] [place] [address] [place] Monocytes (Bld) [#/Vol] 0.98 10*3/uL High <0.87 [facility] Comment on above: Order Comment: Speci men Type: BLOOD SPECIMEN Ordering Facility: [facility] Address: [address] [place] [address] Performed By: #### 5 7021-8 #### [facility] CLIA [id number] [address] [place] [address] [place] Monocytes/100 WBC (Bld) 9.9 % Normal [facility] Comment on above: Order Comment: Speci men Type: BLOOD SPECIMEN Ordering Facility: [facility] Address: [address] [place] [address] Performed By: #### 5 7021-8 #### [facility] CLIA [id number] [address] [place] [address] [place] Neutrophils (Bld) [#/Vol] 6.92 10*3/uL Normal 1.45-7.50 [facility] Comment on above: Order Comment: Speci men Type: BLOOD SPECIMEN Ordering Facility: [facility] Address: [address] [place] [address] Performed By: #### 5 7021-8 #### [facility] CLIA [id number] [address] [place] [address] [place] Neutrophils/100 WBC (Bld) 69.8 % Normal [facility] Comment on above: Order Comment: Speci men Type: BLOOD SPECIMEN Ordering Facility: [facility] Address: [address] [place] [address] Performed By: #### 5 7021-8 #### [facility] CLIA [id number] [address] [place] [address] [place] Nucleated RBC (Bld) [#/Vol] 10*3/uL Normal <0.01 [facility] Comment on above: Order Comment: Speci men Type: BLOOD SPECIMEN Ordering Facility: [facility] Address: [address] [place] [address] Performed By: #### 5 7021-8 #### [facility] CLIA [id number] [address] [place] [address] [place] Nucleated RBC/100 WBC (Bld) [Ratio] 0.0 /100 WBC Normal [facility] Comment on above: Order Comment: Speci men Type: BLOOD SPECIMEN Ordering Facility: [facility] Address: [address] [place] [address] Performed By: #### 5 7021-8 #### [facility] CLIA [id number] [address] [place] [address] [place] Platelet mean volume (Bld) [Entitic vol] 11.7 fL Normal 9.0-12.7 [facility] Comment on above: Order Comment: Speci men Type: BLOOD SPECIMEN Ordering Facility: [facility] Address: [address] [place] [address] Performed By: #### 5 7021-8 #### [facility] CLIA [id number] [place] [address] [place] Platelets (Bld) [#/Vol] 257 10*3/uL Normal 150-400 [facility] Comment on above: Order Comment: Speci men Type: BLOOD SPECIMEN Ordering Facility: [facility] Address: [address] [place] [address] Performed By: #### 5 7021-8 #### [facility] CLIA [id number] [address] [place] [address] [place] RBC (Bld) [#/Vol] 4.45 10*6/uL Normal 3.90-5.20 [facility] Comment on above: Order Comment: Speci men Type: BLOOD SPECIMEN Ordering Facility: [facility] Address: [address] [place] [address] Performed By: #### 5 7021-8 #### [facility] CLIA [id number] [address] [place] [address] [place] WBC (Bld) [#/Vol] 9.92 10*3/uL Normal 3.70-11.00 [facility] Comment on above: Order Comment: Speci men Type: BLOOD SPECIMEN Ordering Facility: [facility] Address: [address] [place] [address] Performed By: #### 5 7021-8 #### [facility] CLIA [id number] [address] [place] [address] CONSULTon 10-08-2023 CONSULT HNO ID: [id number] Author: SONU LINO MD Service: Endocrinology Author Type: Physician Type: Consults Filed: 10/08/2023 16:15 Note Text: ENDOCRINOLOGY INPATIENT INITIAL CONSULT NOTE SERVICE DATE: 10/08/2023 SERVICE TIME: 4:03 PM Reason for consultation: DM2/Gestational diabetes mellitus Requesting Provider: Stephan Rodriguez MD HPI: Roas Cervantes is a 28 year old female admitted on 10/08/2023 for glucose control. Endocrinology is consulted for glycemic management. Diagnosed with Type 2 diabetes mellitus 2018. Followed by Dr Weems for their diabetes management. Pertinent medical history of: DM2, hypothyroidism. Pertinent diagnoses present on admission: DM, 21w3d Outpatient Diabetes Regimen: NPH 25u in AM and 50u in PM, did not take AM dose today Humalog 20u TID qAC, took dose at 11am when BG was 259 but did not eat Outpatient Glucose Monitoring: [place] CGMS: 7 day 14 day 30 day Avg 203 231 213 TIR 21% 3% 19% Hypo 0% 0% 0% (pt notes if low alarm was on it would ring a lot at night, even though asymptomatic) Diabetes Complications: none Current Inpatient Regimen: Oral antihyperglycemic therapy: None Insulin regimen: No basal insulin No prandial insulin Admelog #1 before meals Inpatient Diet: Carbohydrate Controlled Appetite: Intact Steroids: No IV Fluids: No MEDICATIONS / ALLERGIES / PAST MEDICAL, SURGICAL, FAMILY, AND SOCIAL HISTORY: Current Medications 10/08/2023 DIABETES THERAPIES Medication Dosage Pharm Subclass insulin aspart U-100 (NOVOLOG FLEXPEN U-100 INSULIN) 100 unit/mL (3 mL) Inject 3 Units subcutaneously three times a day before meals. Insulin Analogs - Rapid Acting insulin lispro (HUMALOG KWIKPEN) 100 unit/mL 30 units prior each meal. Insulin Analogs - Rapid Acting insulin NPH (HUMULIN N NPH INSULIN KWIKPEN) 100 unit/mL (3 mL) injection pen 50 units in AM and 75 units at bedtime Human Insulins - Intermediate Acting metFORMIN (GLUCOPHAGE) 500 mg tablet Take 1 tablet by mouth twice daily with meals. Insulin Response Enhancers - Biguanides OTHER Medication Dosage Pharm Subclass acyclovir (ZOVIRAX) 400 mg tablet Take 1 tablet by mouth every 12 hours. Herpes Antiviral Agent - Purine Analogs albuterol HFA (PROVENTIL HFA, VENTOLIN HFA) 90 mcg/actuation inhaler Inhale 2 Puffs as instructed every 4 hours as needed for wheezing/shortness of breath. Asthma/COPD Therapy - Beta 2-Adrenergic Agents, Inhaled, Short Acting alcohol swabs (ALCOHOL PREP PADS) Use as directed to check glucose levels up to seven times daily. Antiseptic - Alcohols blood sugar diagnostic test strip Use as directed to check glucose levels up to seven times daily. Medical Supplies and DME - Blood Glucose Tests Blood-Glucose Sensor (FREESTYLE [place] 3 SENSOR) osman Use as instructed. Medical Supplies and DME - Glucose Monitoring Test Supplies famotidine (PEPCID) 20 mg tablet Take 20 mg by mouth twice daily. Gastric Acid Secretion Food Technology Teacher - Histamine H2-Receptor Antagonists Insulin [place], Disposable, (BD ULTRAFINE III MINI PEN) 31 gauge x 3/16 1 Each four times daily. USE WITH INSULIN PENS/ BYETTA PENS 4 TIMES DAILY Medical Supplies and DME - Insulin [place]-Syringes and Admin Supplies Insulin [place], Disposable, (PEN NEEDLE) 32 gauge x 5/32 Use to inject insulin up to 8 times per day. Medical Supplies and DME - Insulin [place]-Syringes and Admin Supplies Lancets lancets Use as directed to check glucose levels up to seven times daily. Medical Supplies and DME - Glucose Monitoring Test Supplies levothyroxine (LEVOXYL) 200 mcg tablet Take 1 tablet by mouth once daily. Thyroid Hormones - Synthetic T4 (Thyroxine) VIT 20-AXAW-PHWYP-DHA ORAL Take by mouth. Vitamins and Minerals promethazine (PHENERGAN) 25 mg tablet Take 0.5-1 tablets by mouth every 6 hours as needed. Antihistamine - 1st Generation - Phenothiazines ALLERGIES Allergen Reactions Amoxicillin Rash Mold Rash Red Dye Rash Wheat Rash PAST MEDICAL HISTORY Diagnosis Date Abnormal Pap smear of cervix Anemia Asthma has not used an inhaler since age 18 Breast abscess Cellulitis 06/2022 breast Complication of anesthesia has issues with breathing after being woken-uses Albuterol Depression Diabetes mellitus (HCC) IDDM Genital herpes Gestational diabetes Hypothyroid PCOS (polycystic ovarian syndrome) depression PAST SURGICAL HISTORY Procedure Laterality Date SECTION HX CHOLECYSTECTOMY INCISION AND DRAINAGE 2020 breast abscess MYRINGOTOMY x4 TONSILLECTOMY AND ADENOIDECTOMY HX FAMILY HISTORY Problem Relation Age of Onset Diabetes Father Hypertension Father Asthma Mother Thyroid Mother other (PCOS) Mother Thyroid Sister Allergies Sister other (PCOS) Sister Cataract Maternal Grandmother Glaucoma Maternal Grandmother Heart Attack Maternal Grandmother Diabetes Maternal Grandfather Heart Maternal Grandfather (more content not included)... Normal [facility] HISTORY PHYSICALon HISTORY PHYSICAL HNO ID: [id number] Author: STEPHAN RODRIGUEZ MD Service: Obstetrics Author Type: Resident Type: H&P Filed: 10/12/2023 08:41 Note Text: -- Attestation signed by Stephan Rodriguez MD at 10/12/2023 8:41 AM Attending Note I evaluated the patient and personally participated in the ledesma components. I agree with the resident's findings and plan as documented and have discussed the case and management of the patient's care with the resident. Admit for diabetic optimization. Consult endocrinology.No monitoring as baby at time of admission was not viable but will do daily doptones. Depending on length admission may need to discuss monitoring when viability has been established. BP 119/64 Pulse 98 Temp 36.8 ?C (98.2 ?F) (Oral) Resp 16 Ht 160 cm (5' 3 ) Wt 109 kg (240 lb 4.8 oz) LMP 05/06/2023 (Exact Date) SpO2 98% BMI 42.57 kg/m? Signature: Stephan Rodriguez MD Date: 10/12/2023 Time: 8:38 AM -- MATERNAL MEDICINE HISTORY AND PHYSICAL SERVICE DATE: 10/08/2023 SERVICE TIME: 4:40 PM ASSESSMENT/PLAN: Rosa Cervantes is a 28 year old at 21w3d admitted as direct admission for poorly controlled type 2 diabetes. Type 2 Diabetes -endocrine consult, appreciate recommendations: NPH 25 units in AM, 50 units in PM, humalog 20 units TID qAC, valeria SSI -carb controlled diet -accuchecks AC/HS Recent Labs 10/08/23 1603 10/08/23 1317 PCGLUCOSE 153* 199* Hypothyroidism -synthroid 200 mcg daily HSV -on acyclovir for ppx Asthma -albuterol PRN FWB - Daily doppler - GBS unknown Routine - PNV - Tdap at 28 weeks - Diet/IVF: Carb Controlled - Consents deferred - Labs: q72h TANDS - DVT Ppx: SCDs Dispo: Inpatient until glycemic control Plan of care discussed with: Provider, RN, Patient. SUBJECTIVE: Patient has no current complaints. Tolerating PO intake. Urinating without difficulty. Passing flatus. Ambulating without difficulty. Feeling good movement. Denies leakage of fluid. Denies vaginal bleeding. OBJECTIVE: PHYSICAL EXAM: Gen: well-appearing, NAD, alert and oriented CV: Warm and well perfused Pulm: Unlabored breathing on RA Abd: Soft, gravid, non-tender Lower Ext: edema symmetric b/l, non-tender, non-erythematous; moving all extremities LAST VITALS: Pulse BP Resp O2 Sat Temp Pain 98 113/71 0 Avg Min Max Vitals (last 12 hours) Flowsheet Row Name Average Min Max BP: Systolic 113 113 113 BP: Diastolic 71 71 71 Pulse 98 98 98 Height 160 cm (5' 3 ) 160 cm (5' 3 ) 160 cm (5' 3 ) Weight 109 kg (240 lb 4.8 oz) 109 kg (240 lb 4.8 oz) 109 kg (240 lb 4.8 oz) HT/WT/BMI: Height Weight BMI 160 cm (5' 3 ) 109 kg (240 lb 4.8 oz) 42.57 LABS ABO/RH: 07/06/2023: A; Positive RUBELLA: 07/06/2023: Positive HANDH: No results found for: HCT , HB Diagnostic tests reviewed for today's visit: Most recent labs and imaging results. SIGNATURE: Gianna Moody MD PATIENT NAME: Rosa Cervantes DATE: 10/08/2023 TIME: 4:40 PM [facility] TYPE + SCREEN PRENATALon ABO A [facility] Comment on above: Order Comment: Speci men Type: BLOOD SPECIMENOrdering Facility: [facility] Address: [address] [place] [address] Performed By: #### T SPN ####[facility] [id number] [place] [address] [place] HISTORICAL AB SCR STATUS Negative [facility] Comment on above: Order Comment: Speci men Type: BLOOD SPECIMENOrdering Facility: [facility] Address: [address] [place] [address] Performed By: #### T SPN ####[facility] [id number] [place] [address] [place] Rh Nom (Bld) Positive [facility] Comment on above: Order Comment: Speci men Type: BLOOD SPECIMENOrdering Facility: [facility] Address: [address] [place] [address] Performed By: #### T SPN ####[facility] [id number] [place] [id number] [facility] [place] TYPE AND SCREEN EXPIRATION 10/11/2023 23:59 Normal [facility] Comment on above: Order Comment: Breannei men Type: BLOOD SPECIMENOrdering Facility: [facility] Address: [address] [place] [address] Performed By: #### T SPN ####[facility] [id number] [place] [id number] [facility] CNPNon 10-06-2023 CNPN Normal [facility] CNPNon 09-16-2023 CNPN Normal [facility] 25(OH)D3 [facility] 25-hydroxyvitamin D3 [Mass/Vol] 13.9 ng/mL Low 31.0-80.0 [facility] Comment on above: Order Comment: Breannei [facility] Type: BLOOD SPECIMENOrdering Facility: [facility] Address: [address] [place] [address] Result Comment: Clas sification of 25 [place] Vitamin D status:Deficiency/Insufficiency: < or = 30 ng/ml.Sufficiency/Optimal Levels: 31-80 ng/mLToxicity: > 100 ng/mL.Test performed by chemiluminescent immunoassay. Performed By: #### 1 989-3 ####[facility] [id number] [address] OF [place] HbA1c (Bld)on 2023 Average glucose Estimated from glycated hemoglobin (Bld) [Mass/Vol] 174 mg/dL Normal [facility] Comment on above: Order Comment: Dio moreira Type: BLOOD SPECIMENOrdering Facility: [facility] Address: [address] [place] [address] Result Comment: eAG: (Estimated average glucose) is a calculated value from HgbA1c and is customer retention representative of the average blood glucose level in the last 2-3 month period. Performed By: #### 5 5454-3 ####[facility] [id number] [place] [address] [place] HbA1c (Bld) [Mass fraction] 7.7 % High 4.3-5.6 [facility] Comment on above: Order Comment: Dio moreira Type: BLOOD SPECIMENOrdering Facility: [facility] Address: [address] [place] [address] Result Comment: Amer [place] Diabetes Association guidelines indicate that patients with HgbA1c in the range 5.7-6.4% are at increased risk for development of diabetes, and intervention by lifestyle modification may be beneficial. HgbA1c greater or equal to 6.5% is considered diagnostic of diabetes. Performed By: #### 5 5454-3 ####[facility] [id number] [place] [address] [place] OBSTETRIC ULTRASOUND WHIon 1 11-09-2022 [facility] T4 SerPl-mCncon 2023 T4 [Mass/Vol] 15.8 ug/dL High 5.5-10.2 [facility] Comment on above: Order Comment: Dio moreira Type: BLOOD SPECIMENOrdering Facility: [facility] Address: [address] [place] [address] Performed By: #### 3 016-3, 3026-2 ####[facility] [id number] [place] [address] [place] TSH SerPl-aCncon 2023 TSH Qn 2.980 m[IU]/L Normal 0.270-4.200 [facility] Comment on above: Order Comment: Dio moreira Type: BLOOD SPECIMENOrdering Facility: [facility] Address: [address] [place] [address] Result Comment: If t he patient is , TSH reference range varies by gestational period:First Trimester (weeks 9-12): 0.180-2.990 mIU/LSecond Trimester: 0.110-3.980 mIU/LThird Trimester: 0.480-4.710 mIU/Tabitha Torres et al. A Practical Approach for the Verifications and Determination of Site- and Trimester-Specific Reference Intervals for Thyroid Function tests in . Thyroid, 2019:29:3:412-420. Reymundo Smith, et al. 2017 Guidelines of the [place] Thyroid Association for the Diagnosis and Management of Thyroid Disease during and the . Thyroid, 2017:27:3:315-389. Performed By: #### 3 016-3, 3026-2 ####[facility] [id number] [address] STATES OF [facility] ALPHA FETOPRO MATERNALon AFP, MATERNAL 1.51 MoM [facility] Date of Collection #1 08/25/23 [facility] Date Received 08/26/23 [facility] VI 02/15/24 [facility] Gestation at Date of Sample 15 weeks 1 days (by scan) [facility] Insulin dependent diabetes Insulin-dependent diabetes mellitus [facility] IVF No [facility] Maternal AFP Comment See comments below [facility] Maternal Age at VI 28 [address] [facility] Patient's Weight 242 lb. [facility] Interpretation Negative Screen Negative [facility] Previous NTD None [facility] Risk of NTD ;1:180 [facility] Sample #1 [id number] [facility] Staff Review Reviewed by Nacho Valle MD, Ph.D ([id number]) [facility] ALPHA FETOPRO MATERNALon AFP, MATERNAL 1.51 MoM Normal [facility] Comment on above: Order Comment: Speci men Type: BLOOD SPECIMENOrdering Facility: [facility] Address: [address] [place] [address] Result Comment: 26.4 0 ng/mL Performed By: #### A FPMAT ####[facility] [id number] [address] OF [facility] DATE OF COLLECTION #1 08/25/23 Normal [facility] Comment on above: Order Comment: Speci men Type: BLOOD SPECIMENOrdering Facility: [facility] Address: [address] [place] [address] Performed By: #### A FPMAT ####[facility] [id number] [place] [address] [place] DATE RECEIVED 08/26/23 Normal [facility] Comment on above: Order Comment: Speci men Type: BLOOD SPECIMENOrdering Facility: [facility] Address: [address] [place] [address] Performed By: #### A FPMAT ####[facility] [id number] [place] [address] [place] VI 02/15/24 Normal [facility] Comment on above: Order Comment: Speci men Type: BLOOD SPECIMENOrdering Facility: [facility] Address: [address] [place] [address] Performed By: #### A FPMAT ####[facility] [id number] [place] [address] [place] GESTATION AT DATE OF SAMPLE 15 weeks 1 days (by scan) Normal [facility] Comment on above: Order Comment: Speci men Type: BLOOD SPECIMENOrdering Facility: [facility] Address: [address] [place] [address] Performed By: #### A FPMAT ####[facility] [id number] [place] [address] [place] INSULIN DEPENDENT DIABETES Insulin-dependent diabetes mellitus Normal [facility] Comment on above: Order Comment: Speci men Type: BLOOD SPECIMENOrdering Facility: [facility] Address: [address] [place] [address] Performed By: #### A FPMAT ####[facility] [id number] [place] [address] [place] IVF No Normal [facility] Comment on above: Order Comment: Speci men Type: BLOOD SPECIMENOrdering Facility: [facility] Address: [address] [place] [address] Performed By: #### A FPMAT ####[facility] [id number] [place] [address] [place] MATERNAL AFP COMMENT See comments below Normal [facility] Comment on above: Order Comment: Dio moreira Type: BLOOD SPECIMENOrdering Facility: [facility] Address: [address] [place] [address] Result Comment: INTE RPRETATION Screening result : Screen negative Risk of NTD : 1 in 180 Comment : The interpretation is for NTD only A screen negative result does not exclude the possibility of a neural tube defect, because screening does not detect all affected pregnancies Performed By: #### A FPMAT ####[facility] [id number] [place] [address] [place] MATERNAL AGE AT VI 28 years Normal [facility] Comment on above: Order Comment: Dio moreira Type: BLOOD SPECIMENOrdering Facility: [facility] Address: [address] [place] [address] Performed By: #### A FPMAT ####[facility] [id number] [place] [address] [place] PATIENT'S WEIGHT DAY OF COLLECTION 242 lb. Normal [facility] Comment on above: Order Comment: Dio moreira Type: BLOOD SPECIMENOrdering Facility: [facility] Address: [address] [place] [address] Performed By: #### A FPMAT ####[facility] [id number] [place] [address] [place] INTERP-MATERNAL AFP Negative Normal Screen Negative [facility] Comment on above: Order Comment: Dio moreira Type: BLOOD SPECIMENOrdering Facility: [facility] Address: [facility] [place] [address] Performed By: #### A FPMAT ####[facility] [id number] [place] [address] [place] PREVIOUS NTD None Normal [facility] Comment on above: Order Comment: Speci men Type: BLOOD SPECIMENOrdering Facility: [facility] Address: [address] [place] [address] Performed By: #### A FPMAT ####[facility] LABCLIA [id number] [place] [address] [place] RISK OF NTD ;1:180 [facility] Comment on above: Order Comment: Speci men Type: BLOOD SPECIMENOrdering Facility: [facility] Address: [address] [place] [address] Performed By: #### A FPMAT ####[facility] LABCLIA [id number] [place] [address] [place] SAMPLE #1 [id number] [facility] Comment on above: Order Comment: Speci men Type: BLOOD SPECIMENOrdering Facility: [facility] Address: [address] [place] [address] Performed By: #### A FPMAT ####[facility] LABCLIA [id number] [place] [address] [place] STAFF REVIEW (MATERNAL SCREENS) Reviewed by Nacho Valle MD, Ph.D ([id number]) [facility] Comment on above: Order Comment: Speci men Type: BLOOD SPECIMENOrdering Facility: [facility] Address: [address] [place] [address] Performed By: #### A FPMAT ####[facility] LABCLIA [id number] [place] [address] [place] CNPNon 08-25-2023 CNPN [facility] TSH BLDon 08-25-2023 TSH Qn 3.300 m[IU]/L 0.270 - 4.200 mIU/L [facility] TSH SerPl-aCncon 08-25-2023 TSH Qn 3.300 m[IU]/L Normal 0.270-4.200 [facility] Comment on above: Order Comment: Speci men Type: BLOOD SPECIMENOrdering Facility: [facility] Address: [address] [place] [address] Result Comment: If t he patient is , TSH reference range varies by gestational period:First Trimester (weeks 9-12): 0.180-2.990 mIU/LSecond Trimester: 0.110-3.980 mIU/LThird Trimester: 0.480-4.710 mIU/Tabitha Torres et al. A Practical Approach for the Verifications and Determination of Site- and Trimester-Specific Reference Intervals for Thyroid Function tests in . Thyroid, 2019:29:3:412-420. Reymundo Smith, et al. 2017 Guidelines of the [place] Thyroid Association for the Diagnosis and Management of Thyroid Disease during and the . Thyroid, 2017:27:3:315-389. Performed By: #### 3 016-3 ####[facility] LABCLIA [id number] [place] [address] [place] URINE OB DIP B/Oon 3 Glucose Ql (U) 1000 mg/dL Neg mg/dL [facility] Protein.monoclonal (U) [Mass/Vol] trace Neg mg/dL [facility] CNPNon 08-20-2023 CNPN [facility] CNPNon 08-19-2023 CNPN [facility] CNOVon 08-13-2023 CNOV [facility] XR CHEST 2V FRONTAL/LATon XR CHEST 2V FRONTAL/LAT Normal [facility] XR Chest PA and Lateralon IMPRESSION: No acute radiographic abnormality. It Infrastructure Consultant: [employer] Transcribe Date/Time: Aug 13 2023 1:01P Dictated by : MALACHI BYRD MD This examination was interpreted and the report reviewed and electronically signed by: MALACHI BYRD MD on Aug 13 2023 1:01PM EST DIVISION OF RADIOLOGY * * *Final Report* * * DATE OF EXAM: Aug 13 2023 1:00PM WOX 5291 - XR CHEST 2V FRONTAL/LAT / PROCEDURE REASON: Acute cough * * * * Physician Interpretation * * * * EXAMINATION: CHEST RADIOGRAPH (2 VIEW FRONTAL & LATERAL) CLINICAL HISTORY: Acute cough MQ: XC2_6 EXAM DATE/TIME: 08/13/2023 1:00 PM COMPARISON: No relevant prior studies available. RESULT: Lines, tubes, and devices: None. Lungs and pleura: No consolidation. No lung mass. No pleural effusion. No pneumothorax. Cardiomediastinal silhouette: Normal cardiomediastinal silhouette. Bones and soft tissues: Unremarkable. DIVISION OF RADIOLOGY Provider, Bella Talbot [facility] - 08/13/2023 * * *Final Report* * * DATE OF EXAM: Aug 13 2023 1:00PM WOX 5291 - XR CHEST 2V FRONTAL/LAT / PROCEDURE REASON: Acute cough * * * * Physician Interpretation * * * * EXAMINATION: CHEST RADIOGRAPH (2 VIEW FRONTAL & LATERAL) CLINICAL HISTORY: Acute cough MQ: XC2_6 EXAM DATE/TIME: 08/13/2023 1:00 PM COMPARISON: No relevant prior studies available. RESULT: Lines, tubes, and devices: None. Lungs and pleura: No consolidation. No lung mass. No pleural effusion. No pneumothorax. Cardiomediastinal silhouette: Normal cardiomediastinal silhouette. Bones and soft tissues: Unremarkable. IMPRESSION IMPRESSION: No acute radiographic abnormality. It Infrastructure Consultant: PSCB Transcribe Date/Time: Aug 13 2023 1:01P Dictated by : MALACHI BYRD MD This examination was interpreted and the report reviewed and electronically signed by: MALACHI BYRD MD on Aug 13 2023 1:01PM [facility] Radiology Study observation (narrative) [facility] XR Chest PA and LateralOrder ed By: Ccf Provider on 08-13-2023 [facility] CNPNon 08-11-2023 CNPN [facility] CARRIER SCREEN, STANDARDon 1 CARRIER SCREEN RESULTS View results in Scanned Documents link when available. [facility] Comment on above: Order Comment: Speci men Type: BLOOD SPECIMENOrdering Facility: [facility] Address: [address] [place] [address] Performed By: #### C RRSCN ####MYRIADCLIA [id number] [place] [address] [id number] PLUSon 08-04-2023 Cell-free DNA./Cell-free DNA.total Dosage of chromosome-specific cfDNA (cfDNA) [Molar fraction] 3% [facility] Comment on above: Order Comment: Speci men Type: BLOOD SPECIMENOrdering Facility: [facility] Address: [address] [place] [address] Performed By: #### M AT21 ####[facility] LABCLIA [id number] [place] [address] Chr 13+18+21+X+Y aneuploidy Dosage of chromosome-specific cfDNA Ql (cfDNA) Negative [facility] Comment on above: Order Comment: Speci men Type: BLOOD SPECIMENOrdering Facility: [facility] Address: [address] [place] [address] Performed By: #### M AT21 ####[facility] LABCLIA [id number] [place] [address] Chr 21 trisomy Dosage of chromosome-specific cfDNA Ql (cfDNA) Negative [facility] Comment on above: Order Comment: Speci men Type: BLOOD SPECIMENOrdering Facility: [facility] Address: [address] [place] [address] Performed By: #### M AT21 ####[facility] LABCLIA [id number] [place] [address] Chr X and Y aneuploidy risk Sequencing Ql (cfDNA) [Interp] Not detected [facility] Comment on above: Order Comment: Speci men Type: BLOOD SPECIMENOrdering Facility: [facility] Address: [address] [place] [address] Result Comment: Not DetectedNot Detected Performed By: #### M AT21 ####[facility] LABCLIA [id number] [place] [address] Citation [place] (Reference lab test) Comment [facility] Comment on above: Order Comment: Dio moreira Type: BLOOD SPECIMENOrdering Facility: [facility] Address: [address] [place] [address] Result Comment: 1. P kevon JOSHI, et al. Leia Med. 2012;14(3):296-305.2. Von VALENTINE et al. Prenat Diag. 2013;33(6):591-597.3. Rajesh C, et al. Clin Chem. 2015 Jan;61(4):608-616.4. Val JOSHI et al. Leia Med. 2011;13(11):913-920.5. ACOG/SMFM Practice Bulletin No. 226, Jul 2020. Performed By: #### M AT21 ####[facility] LABCLIA [id number] [place] [address] Gestational age Estimated from conception date Johnson [facility] Comment on above: Order Comment: Dio moreira Type: BLOOD SPECIMENOrdering Facility: [facility] Address: [address] [place] [address] Performed By: #### M AT21 ####[facility] LABCLIA [id number] [place] [address] GESTATIONALAGE AGE > OR = 9W Yes [facility] Comment on above: Order Comment: Dio moreira Type: BLOOD SPECIMENOrdering Facility: [facility] Address: [address] [place] [address] Performed By: #### M AT21 ####[facility] LABCLIA [id number] [place] [address] Laboratory comment [place] (Report) Comment [facility] Comment on above: Order Comment: Dio moreira Type: BLOOD SPECIMENOrdering Facility: [facility] Address: [address] [place] [address] Result Comment: The MaterniT(R) 21 PLUS laboratory-developed test (LDT)analyzes circulating cell-free DNA from a maternal bloodsample. This test is used for screening purposes and notdiagnostic. Clinical correlation is recommended. Validationdata on twin pregnancies is limited and the ability of thistest to detect aneuploidy in higher multiple gestations hasnot yet been validated. Performed By: #### M AT21 ####[facility] LABCLIA [id number] [place] [address] director construction services name Nom (Provider) Comment [facility] Comment on above: Order Comment: Speci men Type: BLOOD SPECIMENOrdering Facility: [facility] Address: [address] [place] [address] Result Comment: This specimen showed an expected representation ofchromosome 21, 18 and 13 material. Clinical correlation issuggested.CommentSincere Guzman MD, [employer]er, [employer].Professional Component performed at [facility], [employer] [address], [place], [place], Maurilio Robles M.D., Mail Censor, [facility]#[id number]. Performed By: #### M AT21 ####[facility] LABCLIA [id number] [place] [id number] LIMITATIONS OF THE TEST Comment [facility] Comment on above: Order Comment: Dio moreira Type: BLOOD SPECIMENOrdering Facility: [facility] Address: [address] [place] [address] Result Comment: Diana smith the results of these tests are highly reliable,discordant results, including inaccurate sexprediction, may occur due to placental, maternal, or fetalmosaicism or neoplasm; vanishing twin; prior maternal organtransplant; or other causes. These tests are screeningtests and not diagnostic; they do not replace the accuracyand precision of diagnosis with CVS oramniocentesis. A patient with a positive test result shouldbe referred for genetic counseling and offered invasiveprenatal diagnosis for confirmation of test results.[5] Theresults of this testing, including the benefits andlimitations, should be discussed with a qualifiedhealthcare provider. management decisions,including termination of the , should not be basedon the results of these tests alone. The healthcareprovider is responsible for the use of this information inthe management of their patient. Sex chromosomalaneuploidies are not reportable for known multiplegestations. A negative result does not ensure an unaffectedpregnancy nor does it exclude the possibility of otherchromosomal abnormalities or defects which are not apart of these tests. An uninformative result may bereported, the causes of which may include, but are notlimited to, insufficient sequencing coverage, noise orartifacts in the region, amplification or sequencing bias,or insufficient fraction. These tests are notintended to identify pregnancies at risk for neural tubedefects or ventral wall defects. Testing for wholechromosome abnormalities (including sex chromosomes) andfor subchromosomal abnormalities could lead to thepotential discovery of both and maternal genomicabnormalities that could have major, minor, or no, clinicalsignificance. Evaluating the significance of a positive ora non-reportable result may involve both invasive testingand additional studies on the mother. Such investigationsmay lead to a diagnosis of maternal chromosomal orsubchromosomal abnormalities, which on occasion may beassociated with benign or malignant maternal neoplasms.These tests may not accurately identify triploidy,balanced rearrangements, or the precise location ofsubchromosomal duplications or deletions; these may bedetected by diagnosis with CVS or amniocentesis.The ability to report results may be impacted by maternalBMI, maternal weight, maternal systemic lupus erythematosus(SLE) and/or by certain pharmaceutical agents such as lowmolecular weight heparin (for example: Lovenox(R),Xaparin(R), Clexane(R) and Fragmin(R)). Performed By: #### M AT21 ####Luca TechnologiesIA [id number] [place] [address] Monosomy X risk Dosage of chromosome-specific cfDNA Ql (Plasma cell-free+WBC DNA) [Interp] Not detected [facility] Comment on above: Order Comment: Speci men Type: BLOOD SPECIMENOrdering Facility: [facility] Address: [facility] [place] [address] Performed By: #### M AT21 ####[facility] LABCLIA [id number] [place] [address] NEGATIVE PREDICTIVE VALUE Note [facility] Comment on above: Order Comment: Speci men Type: BLOOD SPECIMENOrdering Facility: [facility] Address: [address] [place] [address] Result Comment: The Negative Predictive Value (NPV) for trisomy 21, 18, and13 is greater than 99%. The NPV for SCA and ESS cannot becalculated as SCA and ESS are only reported when anabnormality is detected. Performed By: #### M AT21 ####[facility] LABCLIA [id number] [place] [id number] NOTE Comment [facility] Comment on above: Order Comment: Speci men Type: BLOOD SPECIMENOrdering Facility: [facility] Address: [address] [place] [address] Result Comment: See [employer]. is a subsidiary of [employer], using the brand [facility]. This test wasdeveloped and its performance characteristics determined byMemrise. It has not been cleared or approved by the Foodand Drug Administration. This laboratory is certified underthe Clinical Laboratory Improvement Amendments (CLIA) asqualified to perform high complexity clinical laboratorytesting and accredited by the College of AmericanPathologists (CAP). Performed By: #### M AT21 ####[facility] LABCLIA [id number] [place] [id number] PERFORMANCE CHARACTERISTICS Note [facility] Comment on above: Order Comment: Speci men Type: BLOOD SPECIMENOrdering Facility: [facility] Address: [address] [place] [address] Result Comment: ! Sex ! Accuracy: 99.4% !! !! Region (associated syndrome) ! Est. Sens# ! Est. Spec !! !! Trisomy 21 (Down Syndrome) ! 99.1% ! 99.9% !! !! Trisomy 18 (Avina Syndrome) ! >99.9% ! 99.6% !! !! Trisomy 13 (Patau Syndrome) ! 91.7% ! 99.7% !! !! Sex Chromosome Aneuploidies## ! 96.2% ! 99.7% !! !* As reported in [facility] database nstd37[https://www.ncbi.nlm.nih.gov/dbvar/studies/nstd37/ ]# Estimated Sensitivity. Sensitivity estimated across theobserved size distribution of each syndrome [per ISCScottsdaletabase nstd37] and across the range of fractionsobserved in routine clinical NIPT. Actual sensitivity canalso be influenced by other factors such as the size of theevent, total sequence counts, amplification bias, orsequence bias.## Johnson gestation only. Performed By: #### M AT21 ####[facility] LABCLIA [id number] [place] [address] POSITIVE PREDICTIVE VALUE N/A [facility] Comment on above: Order Comment: Speci men Type: BLOOD SPECIMENOrdering Facility: [facility] Address: [address] [place] [address] Performed By: #### M AT21 ####[facility] LABCLIA [id number] [place] [address] Reference Lab Test Method Comment [facility] Comment on above: Order Comment: Speci men Type: BLOOD SPECIMENOrdering Facility: [facility] Address: [address] [place] [address] Result Comment: See NotesCirculating cell-free DNA was purified from the plasmacomponent of maternal blood. The extracted DNA was thenconverted into a genomic DNA library for aneuploidyanalysis of chromosomes 21, 18, and 13 via next generationsequencing.[1] Optional findings based on the test orderinclude sex chromosome aneuploidy (SCA)[2], and enhancedsequencing series (ESS)[3], which will only be reported onas an additional finding when an abnormality is detected.SCA testing includes information on X and Y representation,while ESS testing includes deletions in selected regions(22q, 15q, 11q, 8q, 5p, 4p, 1p) and trisomy of feytttiiplt82 and 22. Performed By: #### M AT21 ####[facility] LABCLIA [id number] [place] [address] Sex Dosage of chromosome-specific cfDNA Nom (cfDNA) Comment [facility] Comment on above: Order Comment: Speci men Type: BLOOD SPECIMENOrdering Facility: [facility] Address: [address] [place] [address] Result Comment: Cons istent with Male Performed By: #### M AT21 ####[facility] LABCLIA [id number] [place] [address] Test performance information [place] (Unsp spec) Comment [facility] Comment on above: Order Comment: Speci men Type: BLOOD SPECIMENOrdering Facility: [facility] Address: [address] [place], [place] [address] Result Comment: The performance characteristics of the MaterniT(R) 21 PLUSlaboratory-developed test (LDT) have been determined in aclinical validation study with women at increasedrisk for chromosomal aneuploidy.[1-4] Performed By: #### M AT21 ####[facility] LABCLIA [id number] [place] [address] Trisomy 13 risk Dosage of chromosome-specific cfDNA Ql (cfDNA) [Interp] Negative [facility] Comment on above: Order Comment: Speci men Type: BLOOD SPECIMENOrdering Facility: [facility] Address: [address] [place] [address] Performed By: #### M AT21 ####[facility] LABCLIA [id number] [place] [address] Trisomy 18 risk Dosage of chromosome-specific cfDNA Ql (Plasma cell-free+WBC DNA) [Interp] Negative [facility] Comment on above: Order Comment: Speci men Type: BLOOD SPECIMENOrdering Facility: [facility] Address: [address] [place] [address] Performed By: #### M AT21 ####[facility] LABCLIA [id number] [place] [address] Prot/Creat Uron 08-04-2023 Protein/Creatinine (U) [Mass ratio] 0.26 mg/mg High <0.15 [facility] Comment on above: Order Comment: Speci men Type: URINE SPECIMENOrdering Facility: [facility] Address: [address] [place] [address] Result Comment: Adul t Proteinuria Categories:<0.15 mg/mg is considered normal to mildly increased0.15 - 0.50 mg/mg is considered moderately increased>0.50 mg/mg is considered severely increasedKDIGO. (2013). KDIGO 2012 Clinical Practice Guideline for the Evaluation and Management of Chronic Kidney Disease. Official Journal of the International Society of Nephrology, 3(1), 1-150. Performed By: #### 2 890-2 ####[facility] LABCLIA [id number] [place] [id number] [place] Protein/Creatinine (U) [Mass ratio]on 08-04-2023 Creatinine (U) [Mass/Vol] 256.6 mg/dL Normal 20.0-300.0 [facility] Comment on above: Order Comment: Speci men Type: URINE SPECIMENOrdering Facility: [facility] Address: [address] [place] [address] Performed By: #### 2 890-2 ####[facility] LABIA [id number] [place] [address] [place] Protein (U) [Mass/Vol] 66 mg/dL High 0-20 [facility] Comment on above: Order Comment: Speci men Type: URINE SPECIMENOrdering Facility: [facility] Address: [address] [place] [address] Performed By: #### 2 890-2 ####[facility] LABIA [id number] [place] [address] [place] URINE OB DIP B/Oon 3 Glucose Ql (U) Negative Neg mg/dL [facility] Protein.monoclonal (U) [Mass/Vol] 30 mg/dL Neg mg/dL [facility] CNCNPATEDon 07-27-2023 CNCNPATED [facility] CNPNon 07-21-2023 CNPN [facility] CNOVon 07-20-2023 CNOV [facility] CNPNon 07-15-2023 CNPN [facility] CNPNon 07-14-2023 CNPN [facility] CNPNon 07-13-2023 CNPN [facility] CNNURSEon 07-08-2023 CNNURSE [facility] CNPNon 07-08-2023 CNPN [facility] CNPNon 07-07-2023 CNPN [facility] BACTERIAL VAGINOSIS NAATon 1 Lactobacillus crispatus+gasseri+j ensenii + Gardnerella vaginalis + Atopobium vaginae rRNA [place]+probe Ql (Vag fld) Positive Abnormal Negative for bacterial vaginosis [facility] Comment on above: Order Comment: Speci men Type: SWABOrdering Facility: [facility] Address: [address] [place], [place] [address] Performed By: #### 3 6902-5, BVAMP ####[facility] LABCLIA [id number] [place] [address] [place] Bacteria Ur Culton 3 Bacteria identified Cx Nom (U) ORGANISM ID: 1 <10,000 CFU/ml Normal urogenital asmita [facility] Comment on above: Performed By: #### 6 30-4 ####[facility] LABCLIA [id number] [place] [address] [place] C. trachomatis+N. gonorrhoea e DNA KATIANA+probe Ql (Unsp spec)on 07-06-2023 C. trachomatis rRNA KAT[place]NA+probe Ql (Unsp spec) Negative Normal Negative for Chlamydia trachomatis by amplificaton [facility] Comment on above: Order Comment: Speci men Type: SWABOrdering Facility: [facility] Address: [address] [place], [place] [address] Performed By: #### 3 6902-5, BVAMP ####[facility] LABCLIA [id number] [address] [place] N. gonorrhoeae rRNA KATIANA+probe Ql (Unsp spec) Negative Normal Negative for Neisseria gonorrhoeae by amplification [facility] Comment on above: Order Comment: Speci men Type: SWABOrdering Facility: [facility] Address: [address] [place], [place] [address] Performed By: #### 3 6902-5, BVAMP ####[facility] LABCLIA [id number] [place] [address] [place] JOHANNY/TRICHOMONAS NAATon 1 C. glabrata RNA [place]AT[place]+probe Ql (Vag fld) Positive Abnormal Negative for Johanny glabrata [facility] Comment on above: Order Comment: Speci men Type: SWABOrdering Facility: [facility] Address: [address] [place] [address] Performed By: #### C VTV ####[facility] LABIA [id number] [place] [address] [place] Johanny sp DNA KATIANA+probe Ql (Vag fld) Positive Abnormal Negative for Johanny species [facility] Comment on above: Order Comment: Speci men Type: SWABOrdering Facility: [facility] Address: [address] [place] [address] Performed By: #### C VTV ####[facility] LABIA [id number] [address] [place] T. vaginalis DNA KATIANA+probe Ql (Unsp spec) Negative Normal Negative for Trichomonas vaginalis by amplification [facility] Comment on above: Order Comment: Speci men Type: SWABOrdering Facility: [facility] Address: [address] [place] [address] Performed By: #### C VTV ####[facility] LABIA [id number] [place] [address] [place] CBC panel Auto (Bld)on 07-06 Erythrocyte distribution width (RBC) [Ratio] 13.2 % Normal 11.5-15.0 [facility] Comment on above: Order Comment: Speci men Type: BLOOD SPECIMENOrdering Facility: [facility] Address: [address] [place], [place] [address] Performed By: #### 5 8410-2 ####[facility] [id number] [place] [address] [place] Hematocrit (Bld) [Volume fraction] 42.5 % Normal 36.0-46.0 [facility] Comment on above: Order Comment: Speci men Type: BLOOD SPECIMENOrdering Facility: [facility] Address: [address] [place], [place] [address] Performed By: #### 5 8410-2 ####[facility] SILVIAWNCLIA [id number] [place] [address] [place] Hemoglobin (Bld) [Mass/Vol] 14.4 g/dL Normal 11.5-15.5 [facility] Comment on above: Order Comment: Speci men Type: BLOOD SPECIMENOrdering Facility: [facility] Address: [address] [place] [address] Performed By: #### 5 8410-2 ####[facility] [id number] [place] [address] [place] MCH (RBC) [Entitic mass] 26.9 pg Normal 26.0-34.0 [facility] Comment on above: Order Comment: Speci men Type: BLOOD SPECIMENOrdering Facility: [facility] Address: [address] [place] [address] Performed By: #### 5 8410-2 ####[facility] [id number] [place] [address] [place] MCHC (RBC) [Mass/Vol] 33.9 g/dL Normal 30.5-36.0 [facility] Comment on above: Order Comment: Speci men Type: BLOOD SPECIMENOrdering Facility: [facility] Address: [address] [place] [address] Performed By: #### 5 8410-2 ####[facility] [id number] [place] [address] [place] MCV (RBC) [Entitic vol] 79.3 fL Low 80.0-100.0 [facility] Comment on above: Order Comment: Speci men Type: BLOOD SPECIMENOrdering Facility: [facility] Address: [address] [place] [address] Performed By: #### 5 8410-2 ####[facility] [id number] [place] [address] [place] Nucleated RBC (Bld) [#/Vol] 10*3/uL Normal <0.01 [facility] Comment on above: Order Comment: Speci men Type: BLOOD SPECIMENOrdering Facility: [facility] Address: [address] [place] [address] Performed By: #### 5 8410-2 ####[facility] [id number] [place] [address] [place] Platelet mean volume (Bld) [Entitic vol] 11.2 fL Normal 9.0-12.7 [facility] Comment on above: Order Comment: Speci men Type: BLOOD SPECIMENOrdering Facility: [facility] Address: [address] [place] [address] Performed By: #### 5 8410-2 ####[facility] [id number] [place] [address] [place] Platelets (Bld) [#/Vol] 387 10*3/uL Normal 150-400 [facility] Comment on above: Order Comment: Speci men Type: BLOOD SPECIMENOrdering Facility: [facility] Address: [address] [place] [address] Performed By: #### 5 8410-2 ####[facility] [id number] [place] [address] [place] RBC (Bld) [#/Vol] 5.36 10*6/uL High 3.90-5.20 [facility] Comment on above: Order Comment: Speci men Type: BLOOD SPECIMENOrdering Facility: [facility] Address: [address] [place] [address] Performed By: #### 5 8410-2 ####[facility]ITALNCLI [id number] [place] [address] [place] WBC (Bld) [#/Vol] 18.37 10*3/uL High 3.70-11.00 [facility] Comment on above: Order Comment: Speci men Type: BLOOD SPECIMENOrdering Facility: [facility] Address: [address] [place] [address] Performed By: #### 5 8410-2 ####[facility] [id number] [place] [address] [place] CNSWon 07-06-2023 CNSW Normal [facility] Comprehensive metabolic 2000 panelon 07-06-2023 Albumin [Mass/Vol] 4.3 g/dL Normal 3.9-4.9 [facility] Comment on above: Order Comment: Speci men Type: BLOOD SPECIMENOrdering Facility: [facility] Address: [address] [place] [address] Performed By: #### 2 4323-8 ####[facility] LABCLIA [id number] [place] [address] [place] ALP [Catalytic activity/Vol] 47 U/L Normal 34-123 [facility] Comment on above: Order Comment: Speci men Type: BLOOD SPECIMENOrdering Facility: [facility] Address: [address] [place] [address] Performed By: #### 2 4323-8 ####[facility] LABCLIA [id number] [place] [address] [place] ALT [Catalytic activity/Vol] 21 U/L Normal 7-38 [facility] Comment on above: Order Comment: Speci men Type: BLOOD SPECIMENOrdering Facility: [facility] Address: [address] [place], [place] [address] Performed By: #### 2 4323-8 ####[facility] LABCLIA [id number] [place] [address] [place] Anion gap [Moles/Vol] 16 mmol/L Normal 9-18 [facility] Comment on above: Order Comment: Speci men Type: BLOOD SPECIMENOrdering Facility: [facility] Address: [address] Performed By: #### 2 4323-8 ####[facility] LABCLIA [id number] [place] [address] [place] AST [Catalytic activity/Vol] 22 U/L Normal 13-35 [facility] Comment on above: Order Comment: Speci men Type: BLOOD SPECIMENOrdering Facility: [facility] Address: [address] Performed By: #### 2 4323-8 ####[facility] LABIA [id number] [place] [address] [place] Bilirubin [Mass/Vol] 0.4 mg/dL Normal 0.2-1.3 [facility] Comment on above: Order Comment: Speci men Type: BLOOD SPECIMENOrdering Facility: [facility] Address: [address] Performed By: #### 2 4323-8 ####[facility] LABCLIA [id number] [place] [address] [place] Calcium [Mass/Vol] 9.5 mg/dL Normal 8.5-10.2 [facility] Comment on above: Order Comment: Speci men Type: BLOOD SPECIMENOrdering Facility: [facility] Address: [address] Performed By: #### 2 4323-8 ####[facility] LABCLIA [id number] [place] [address] [place] Chloride [Moles/Vol] 101 mmol/L Normal 97-105 [facility] Comment on above: Order Comment: Speci men Type: BLOOD SPECIMENOrdering Facility: [facility] Address: [address] Performed By: #### 2 4323-8 ####[facility] LABCLIA [id number] [place] [address] [place] CO2 [Moles/Vol] 16 mmol/L Low 22-30 [facility] Comment on above: Order Comment: Speci men Type: BLOOD SPECIMENOrdering Facility: [facility] Address: [address] [place] [address] Performed By: #### 2 4323-8 ####[facility] LABCLIA [id number] [address] [place] Creatinine [Mass/Vol] 0.32 mg/dL Low 0.58-0.96 [facility] Comment on above: Order Comment: Speci men Type: BLOOD SPECIMENOrdering Facility: [facility] Address: [address] [place] [address] Performed By: #### 2 4323-8 ####[facility] LABIA [id number] [address] STATES OF [facility] Creatinine and Glomerular filtration rate.predicted panel (S/P/Bld) 148 mL/min/1.73m??? Normal >=60 [facility] Comment on above: Order Comment: Speci men Type: BLOOD SPECIMENOrdering Facility: [facility] Address: [address] [place] [address] Result Comment: Ofelia mated Glomerular Filtration Rate (eGFR) is calculated using the 2020 CKD-EPI creatinine equation. This equation utilizes serum creatinine, sex, and age as parameters. The creatinine assay has traceable calibration to isotope dilution-mass spectrometry. Refer to KDIGO guidelines for clinical interpretation. In patients with unstable renal function, e.g. those with acute kidney injury, the eGFR may not accurately reflect actual GFR. Performed By: #### 2 4323-8 ####[facility] LABCLIA [id number] [place] [address] [place] Glucose [Mass/Vol] 262 mg/dL High 74-99 [facility] Comment on above: Order Comment: Speci men Type: BLOOD SPECIMENOrdering Facility: [facility] Address: [address] [place] [address] Result Comment: The [place] Diabetes Association (ADA) provides guidance for cutoff values for fasting glucose and random glucose. The ADA defines fasting as no caloric intake for at least 8 hours. Fasting plasma glucose results between 100 to 125 mg/dL indicate increased risk for diabetes (prediabetes).Fasting plasma glucose results greater than or equal to 126 mg/dL meet the criteria for diagnosis of diabetes. In the absence of unequivocal hyperglycemia, results should be confirmed by repeat testing. In a patient with classic symptoms of hyperglycemia or hyperglycemic crisis, random plasma glucose results greater than or equal to 200 mg/dL meet the criteria for diagnosis of diabetes.Reference: Standards of Medical Care in Diabetes 2016, [place] Diabetes Association. Diabetes Care. 2016.39(Suppl 1). Performed By: #### 2 4323-8 ####[facility] LABCLIA [id number] [place] [address] [place] Potassium [Moles/Vol] 4.2 mmol/L Normal 3.7-5.1 [facility] Comment on above: Order Comment: Speci men Type: BLOOD SPECIMENOrdering Facility: [facility] Address: [address] [place] [address] Performed By: #### 2 4323-8 ####[facility] LABCLIA [id number] [place] [address] [place] Protein [Mass/Vol] 7.2 g/dL Normal 6.3-8.0 [facility] Comment on above: Order Comment: Speci men Type: BLOOD SPECIMENOrdering Facility: [facility] Address: [address] [place] [address] Performed By: #### 2 4323-8 ####[facility] LABCLIA [id number] [place] [address] [place] Sodium [Moles/Vol] 133 mmol/L Low 136-144 [facility] Comment on above: Order Comment: Speci men Type: BLOOD SPECIMENOrdering Facility: [facility] Address: [address] [place] [address] Performed By: #### 2 4323-8 ####[facility] [id number] [place] [address] [place] [facility] Urea nitrogen [Mass/Vol] 8 mg/dL Normal 7-21 [facility] Comment on above: Order Comment: Speci men Type: BLOOD SPECIMENOrdering Facility: [facility] Address: [address] [place] [address] Performed By: #### 2 4323-8 ####[facility] [id number] [place] [address] [place] HBV surface Ag Ser Qlon 10 HBV surface Ag Ql (S) Negative Normal Negative [facility] Comment on above: Order Comment: Speci men Type: BLOOD SPECIMENOrdering Facility: [facility] Address: [address] [place] [address] Performed By: #### 5 195-3, 95898-1, 60357-1 ####[facility] [id number] [address] [place] HCV Ab Ser Qlon 07-06-2023 HCV Ab Ql (S) Negative Normal Negative [facility] Comment on above: Order Comment: Speci men Type: BLOOD SPECIMENOrdering Facility: [facility] Address: [address] [place] [address] Result Comment: The result suggests no evidence of active infection with Hepatitis C virus. Should recent infection be suspected, repeat testing may be considered 4-6 weeks after this draw. Performed By: #### 1 6128-1 ####[facility]UN[facility] [id number] [address] [place] HIV 1+2 Ab IA Qlon 3 HIV 1 and 2 Ab IA.rapid Nom Normal [facility] Comment on above: Order Comment: Speci men Type: BLOOD SPECIMENOrdering Facility: [facility] Address: [address] [place], [place] [address] Result Comment: Test not indicated. Performed By: #### 5 195-3, 12566-7, 57897-4 ####[facility] LABCLIA [id number] [place] [address] [place] HIV 1+2 Ab+HIV1 p24 Ag IA Ql Non-Reactive Normal Nonreactive [facility] Comment on above: Order Comment: Speci men Type: BLOOD SPECIMENOrdering Facility: [facility] Address: [address] [place] [address] Performed By: #### 5 195-3, 68572-2, 92536-6 ####[facility] [id number] [address] [place] HIV immunoassay testing algorithm interpretation (S/P/Bld) [Interp] Normal [facility] Comment on above: Order Comment: Speci men Type: BLOOD SPECIMENOrdering Facility: [facility] Address: [address] [place] [address] Result Comment: No e vidence of HIV-1 or HIV-2 infection. Should recent infection be suspected, repeat testing may be considered 2-3 weeks after this draw.[place] Rev. Code 3701.243(E): This information has been disclosed to you from confidential records protected from disclosure by state law. ???You shall make no further disclosure of this information without the specific, written, and informed release of the individual to whom it pertains or as otherwise permitted by state law. A general authorization for the release of medical or other information is not sufficient for the purpose of the release of HIV test results or diagnoses. Performed By: #### 5 195-3, 24591-6, 74769-2 ####[facility] LABIA [id number] [place] [address] [place] HbA1c (Bld)on 07-06-2023 Average glucose Estimated from glycated hemoglobin (Bld) [Mass/Vol] 243 mg/dL Normal [facility] Comment on above: Order Comment: Speci men Type: BLOOD SPECIMENOrdering Facility: [facility] Address: [address] [place] [address] Result Comment: eAG: (Estimated average glucose) is a calculated value from HgbA1c and is customer retention representative of the average blood glucose level in the last 2-3 month period. Performed By: #### 5 5454-3 ####[facility] LABCLIA [id number] [place] [address] [place] HbA1c (Bld) [Mass fraction] 10.1 % High 4.3-5.6 [facility] Comment on above: Order Comment: Speci men Type: BLOOD SPECIMENOrdering Facility: [facility] Address: [address] [place] [address] Result Comment: [place] Diabetes Association guidelines indicate that patients with HgbA1c in the range 5.7-6.4% are at increased risk for development of diabetes, and intervention by lifestyle modification may be beneficial. HgbA1c greater or equal to 6.5% is considered diagnostic of diabetes. Performed By: #### 5 5454-3 ####[facility] LABCLIA [id number] [place] [address] [place] PAP TESTon 07-06-2023 ADEQUACY Normal [facility] Comment on above: Order Comment: Speci men Type: FLUID SPECIMENOrdering Facility: [facility] Address: [address] [place] [address] Result Comment: Sati sfactory for interpretationNo endocervical component Performed By: #### L [id number] ####[facility] LABCLIA [id number] [place] [address] [place] CASE REPORT Normal [facility] Comment on above: Order Comment: Speci men Type: FLUID SPECIMENOrdering Facility: [facility] Address: [address] [place] [address] Result Comment: Gyne cologic Cytology Report Case: [id number] Provider: Juan David De Leon MD Collected: 07/06/2023 04:09 PMOrdering Location: OB/Gynecology Received: 07/06/2023 05:05 PMFirst Screen: [place], [place], [place], ASCPSpecimen: Pap Test, ThinPrep, Cervix Performed By: #### L [id number] ####[facility] LABCLIA [id number] [place] [address] [place] CLINICAL HISTORY, CYTOLOGY, PARTS CHASER (Indicate Weeks) Normal [facility] Comment on above: Order Comment: Speci men Type: FLUID SPECIMENOrdering Facility: [facility] Address: [address] [place] [address] Performed By: #### L [id number] ####[facility] LABCLIA [id number] [place] [address] [place] CYTOLOGY PAP OTHER INT Predominance of coccobacilli consistent with shift in vaginal asmita Normal [facility] Comment on above: Order Comment: Speci men Type: FLUID SPECIMENOrdering Facility: [facility] Address: [address] [place] [address] Performed By: #### L [id number] ####[facility] LABCLIA [id number] [place] [address] [place] FINAL PERFORMING LAB Normal [facility] Comment on above: Order Comment: Speci men Type: FLUID SPECIMENOrdering Facility: [facility] Address: [address] [place] [address] Result Comment: Tech nical component, mobile battery technician screening performed at [facility] [place] [address] CLIA# [id number] interpretation performed at [facility], [facility] [place] [id number] CLIA# [id number] Director: Bakari Blackwood M.D. Performed By: #### L [id number] ####[facility] LABCLIA [id number] [place] [address] [place] HPV REFLEX HPV if Atypical Normal [facility] Comment on above: Order Comment: Speci men Type: FLUID SPECIMENOrdering Facility: [facility] Address: [address] [place] [address] Performed By: #### L [id number] ####[facility] LABCLIA [id number] [place] [id number] [place] INTERPRETATION, CYTOLOGY, PARTS CHASER Normal [facility] Comment on above: Order Comment: Speci men Type: FLUID SPECIMENOrdering Facility: [facility] Address: [address] [place] [address] Result Comment: Nega tive for intraepithelial lesion or malignancy. Performed By: #### L [id number] ####[facility] LABCLIA [id number] [place] [address] [place] LMP 05/06/2023 Normal [facility] Comment on above: Order Comment: Speci men Type: FLUID SPECIMENOrdering Facility: [facility] Address: [address] [place] [address] Performed By: #### L [id number] ####[facility] LABCLIA [id number] [place] [address] [place] PAP DISCLAIMER COMMENT The Pap Smear is a screening test for cervical cancer. False negative results occur with all screening tests, emphasizing the need for rescreening at recommended intervals, and clinical correlation. Normal [facility] Comment on above: Order Comment: Speci men Type: FLUID SPECIMENOrdering Facility: [facility] Address: [address] [place] [address] Performed By: #### L [id number] ####[facility] LABCLIA [id number] [place] [id number] [place] RUBELLA IGG ABon 07-06-2023 RUBELLA IGG AB, QUAL Positive Normal Positive [facility] Comment on above: Order Comment: Speci men Type: BLOOD SPECIMENOrdering Facility: [facility] Address: [address] [place], [place] [address] Result Comment: The result suggests recent or past exposure to Rubella virus or history of Rubella vaccination. Positive result may also be seen due to presence of passively-transferred antibodies. Please correlate with patient's history. Performed By: #### R UBIGG ####[facility] LABCLIA [id number] [place] [address] [place] Reagin and Treponema pallidu m IgG and IgM [Interp]on 07-06-2023 T. pallidum IgG+IgM IA Ql (S) Non-Reactive Normal Nonreactive [facility] Comment on above: Order Comment: Speci men Type: BLOOD SPECIMENOrdering Facility: [facility] Address: [address] [place] [address] Performed By: #### 5 195-3, 21500-7, 86696-5 ####[facility] LABIA [id number] [place] [address] [place] Reagin+T pallidum IgG+IgM Se rPl-Impon 07-06-2023 Reagin and Treponema pallidum IgG and IgM [Interp] Cannot exclude recent Treponemal infection if specimen collected within 7-10 days after appearance of suspect lesions or 2-3 weeks after an exposure. Clinical correlation is required. Normal [facility] Comment on above: Order Comment: Speci men Type: BLOOD SPECIMENOrdering Facility: [facility] Address: [address] [place] [address] Performed By: #### 5 195-3, 88476-6, 76936-7 ####[facility] LABIA [id number] [place] [address] [place] TSH SerPl-aCncon 07-06-2023 TSH Qn 27.700 m[IU]/L High 0.270-4.200 [facility] Comment on above: Order Comment: Speci men Type: BLOOD SPECIMENOrdering Facility: [facility] Address: [address] [place] [address] Result Comment: If t he patient is , TSH reference range varies by gestational period:First Trimester (weeks 9-12): 0.180-2.990 mIU/LSecond Trimester: 0.110-3.980 mIU/LThird Trimester: 0.480-4.710 mIU/Tabitha Torres et al. A Practical Approach for the Verifications and Determination of Site- and Trimester-Specific Reference Intervals for Thyroid Function tests in . Thyroid, 2019:29:3:412-420. Reymundo Smith, et al. 2017 Guidelines of the [place] Thyroid Association for the Diagnosis and Management of Thyroid Disease during and the . Thyroid, 2017:27:3:315-389. Performed By: #### 3 016-3 ####[facility] LABCLIA [id number] [address] TYPE + SCREEN PRENATALon ABO A Normal [facility] Comment on above: Order Comment: Dio moreira Type: BLOOD SPECIMENOrdering Facility: [facility] Address: [address] [place] [address] Performed By: #### T SPN ####[facility] BLOOD BANKIA [id number] [address] HISTORICAL AB SCR STATUS Negative Normal [facility] Comment on above: Order Comment: Dio moreira Type: BLOOD SPECIMENOrdering Facility: [facility] Address: [address] [place] [address] Performed By: #### T SPN ####[facility] BLOOD BANKCLIA [id number] [address] Rh Nom (Bld) Positive Normal [facility] Comment on above: Order Comment: Dio moreira Type: BLOOD SPECIMENOrdering Facility: [facility] Address: [address] [place] [address] Performed By: #### T SPN ####[facility] BLOOD BANKIA [id number] [address] TYPE AND SCREEN EXPIRATION 07/09/2023 23:59 Normal [facility] Comment on above: Order Comment: Speci men Type: BLOOD SPECIMENOrdering Facility: [facility] Address: [place] [address] Performed By: #### T SPN ####[facility] BLOOD BANKCLIA [id number] [place] [address] [place] CNNURSEon 07-01-2023 CNNURSE Normal [facility] CNPNon 07-01-2023 CNPN Normal [facility] HCG QUANTITATIVEon 3 HCG.beta subunit Qn 3222.0 m[IU]/mL High <5.0 mIU/mL [facility] B-HCG SerPl-aCncon 3 HCG.beta subunit Qn 3222.0 m[IU]/mL High <5.0 [facility] Comment on above: Order Comment: Speci men Type: BLOOD SPECIMENOrdering Facility: [facility] Address: [place] [address] Result Comment: ANGELITO TITATIVE HCG NORMAL RANGESWeeks of Gestation (Weeks Since LMP)3 Weeks (5.8-71.2 mIU/mL)4 Weeks (9.5-750 mIU/mL)5 Weeks (217-7138 mIU/mL)6 Weeks (158-69401 mIU/mL)7 Weeks (3697-344460 mIU/mL)8 Weeks (15514-929058 mIU/mL)9 Weeks (44782-166432 mIU/mL)10 Weeks (26284-619523 mIU/mL)12 Weeks (92006-599068 mIU/mL)Referenced to 4th IS of [facility] Performed By: #### 2 1198-7 ####[facility] LABCLIA [id number] [place] [address] [place] HCG QUANTITATIVEon 3 HCG.beta subunit Qn 2706.0 m[IU]/mL High <5.0 mIU/mL [facility] B-HCG SerPl-aCncon 3 HCG.beta subunit Qn 2706.0 m[IU]/mL High <5.0 [facility] Comment on above: Order Comment: Speci men Type: BLOOD SPECIMENOrdering Facility: [facility] Address: [place] [address] Result Comment: ANGELITO TITATIVE HCG NORMAL RANGESWeeks of Gestation (Weeks Since LMP)3 Weeks (5.8-71.2 mIU/mL)4 Weeks (9.5-750 mIU/mL)5 Weeks (217-7138 mIU/mL)6 Weeks (158-79470 mIU/mL)7 Weeks (3697-657920 mIU/mL)8 Weeks (53155-865678 mIU/mL)9 Weeks (53053-563142 mIU/mL)10 Weeks (18903-817792 mIU/mL)12 Weeks (92283-745554 mIU/mL)Referenced to 4th IS of [facility] Performed By: #### 2 1198-7 ####[facility] LABCLIA [id number] [place] [address] [place] CNPNon 06-17-2023 CNPN Normal [facility] CNPNon 06-16-2023 CNPN Normal [facility] CNOVon 06-15-2023 CNOV Normal [facility] Fungus Spec Culton 3 Fungus identified Cx Nom (Unsp spec) ORGANISM ID: 1 Moderate Johanny albicans Normal [facility] Comment on above: Performed By: #### 5 80-1 ####[facility] LABCLIA [id number] [place] [address] [place] HCG QUAL UR B/Oon 06-15-2023 status Yes neg - pos [facility] Quality Check Yes [facility] .Auto Diffon 05-29-2023 Basophil, Absolute 0.2 10 3/mcL Normal 0.0-0.2 [facility] ([place]) Comment on above: Performed By: #### P REGU, UA, UAMICAO #### [address] [place], [place] [address] Basophils/100 WBC (Bld) 1.0 % Normal 0.0-2.5 [facility] ([place]) Comment on above: Performed By: #### P REGU, UA, UAMICAO #### [address] [place], [place] [address] Eosinophil, Absolute 0.2 10 3/mcL Normal 0.0-0.4 [facility] ([place]) Comment on above: Performed By: #### P REGU, UA, UAMICAO #### [address] [place], [place] [address] Eosinophils/100 WBC (Bld) 1.0 % Normal 0.0-7.0 [facility] ([place]) Comment on above: Performed By: #### P REGU, UA, UAMICAO #### [address]olas [address] [place], [place] [address] Lymphocyte, Absolute 4.2 10 3/mcL High 0.8-3.9 [facility] ([place]) Comment on above: Performed By: #### P REGU, UA, UAMICAO #### Nickolas [address] [place], [place] [address] Lymphocytes/100 WBC (Bld) 24.8 % Normal 10.0-50.0 [facility] ([place]) Comment on above: Performed By: #### P REGU, UA, UAMICAO #### Nickolas [address] [place], [place] [address] Monocyte, Absolute 1.1 10 3/mcL High 0.2-1.0 [facility] ([place]) Comment on above: Performed By: #### P REGU, UA, UAMICAO #### Nickolas [address] [place], [place] [address] Monocytes/100 WBC (Bld) 6.7 % Normal 1.7-13.0 [facility] ([place] Comment on above: Performed By: #### P REGU, UA, UAMICAO #### [place] [address] [place], [place] [address] Neutrophils/100 WBC (Bld) 66.5 % Normal 37.0-80.0 [facility] ([place] Comment on above: Performed By: #### P REGU, UA, UAMICAO #### Nickolas [place] [address] [place], [place] [address] .GFRon 05-29-2023 GFR 108 ml/min/1.73sqm Normal [facility] ([place]) Comment on above: Result Comment: GFR Population mean for , Non- Americans Ages 20-29 = 116 mL/min/1.73 sq.m. Ages 30-39 = 107 mL/min/1.73 sq.m. Ages 40-49 = 99 mL/min/1.73 sq.m. Ages 50-59 = 93 mL/min/1.73 sq.m. Ages 60-69 = 85 mL/min/1.73 sq.m. Ages 70+ = 75 mL/min/1.73 sq.m. Chronic Kidney Disease: Less than 60 mL/min/1.73 square meters End Stage Renal Disease: Less than 15 mL/min/1.73 square meters Performed By: #### P REGU, UA, UAMICAO #### Nickolas Zu[address] [place], [place] [address] GFR Non- 89 ml/min/1.73sqm Normal [facility] ([place] Comment on above: Result Comment: GFR Population mean for , Non- Americans Ages 20-29 = 116 mL/min/1.73 sq.m. Ages 30-39 = 107 mL/min/1.73 sq.m. Ages 40-49 = 99 mL/min/1.73 sq.m. Ages 50-59 = 93 mL/min/1.73 sq.m. Ages 60-69 = 85 mL/min/1.73 sq.m. Ages 70+ = 75 mL/min/1.73 sq.m. Chronic Kidney Disease: Less than 60 mL/min/1.73 square meters End Stage Renal Disease: Less than 15 mL/min/1.73 square meters Performed By: #### P REGU, UA, UAMICAO #### Nickolas [place] [address] [place], [place] [address] .MDWon 05-29-2023 Monocyte Distribution Width 19.03 Normal 0.00-20.00 [facility] ([place]) Comment on above: Result Comment: For ED adult patients suspected of sepsis, MDW<=20.0 does not rule out sepsis or risk of sepsis Performed By: #### P REGU, UA, UAMICAO #### Nickolas [place] [address] [place] [address] .NEUABSon 05-29-2023 Neutrophil, Absolute 11.3 10 3/mcL High 2.9-6.2 [facility] ([place] Comment on above: Performed By: #### P REGU, UA, UAMICAO #### [facility] [address] [place] [address] .Urinalysis Microscopic (AO) on 05-29-2023 UA Bacteria 3+ /hpf Abnormal [facility] ([place]) Comment on above: Performed By: #### P REGU, UA, UAMICAO #### Nickolas [place] [address] [place] [address] UA RBC 5-10 Abnormal None Seen [facility] ([place] Comment on above: Performed By: #### P REGU, UA, UAMICAO #### [facility] [address] [place] [address] UA Squam Epithelial 0-5 Abnormal None Seen [facility] ([place]) Comment on above: Performed By: #### P REGU, UA, UAMICAO #### Nickolas [place] [address] [place] [address] UA WBC LOADED Abnormal None Seen [facility] ([place] Comment on above: Performed By: #### P REGU, UA, UAMICAO #### [facility] [address] [place] [id number] CBCon 05-29-2023 Erythrocyte distribution width (RBC) [Ratio] 13.8 % Normal 11.5-14.5 [facility] ([place] Comment on above: Performed By: #### P REGU, UA, UAMICAO #### [facility] [address] [place], [place] [address] Hematocrit (Bld) [Volume fraction] 39.7 % Normal 37.0-47.0 [facility] ([place] Comment on above: Performed By: #### P REGU, UA, UAMICAO #### Nickolas [place] [address] [place], [place] [address] Hgb 13.4 G/dL Normal 12.0-16.0 [facility] ([place] Comment on above: Performed By: #### P REGU, UA, UAMICAO #### [place] [address] [place], [place] [address] MCH (RBC) [Entitic mass] 27.2 pg Normal 27.0-31.2 [facility] ([place]) Comment on above: Performed By: #### P REGU, UA, UAMICAO #### Nickolas [place] [address] [place], [place] [address] MCHC 33.7 G/dL Normal 33.0-37.0 [facility] ([place] Comment on above: Performed By: #### P REGU, UA, UAMICAO #### [facility] [address] [place] [address] MCV (RBC) [Entitic vol] 80.9 fL Normal 80.0-94.0 [facility] ([place] Comment on above: Performed By: #### P REGU, UA, UAMICAO #### [facility] [address] [place], [place] [address] Platelet 302 10 3/mcL Normal 130-400 [facility] ([place] Comment on above: Performed By: #### P REGU, UA, UAMICAO #### Nickolas [place] [address] [place], [place] [address] Platelet mean volume (Bld) [Entitic vol] 9.5 fL Normal 7.4-10.4 [facility] ([place] Comment on above: Performed By: #### P REGU, UA, UAMICAO #### [facility] [address] [place], [place] [address] RBC 4.91 10 6/mcL Normal 4.20-5.40 [facility] ([place] Comment on above: Performed By: #### P REGU, UA, UAMICAO #### [facility] [address] [place], [place] [address] WBC 17.0 10 3/mcL High 4.6-10.8 [facility] ([place] Comment on above: Performed By: #### P REGU, UA, UAMICAO #### [facility] [address] [place], [place] [address] CMPon 05-29-2023 Albumin Level 3.5 G/dL Normal 3.5-5.0 [facility] ([place] Comment on above: Performed By: #### P REGU, UA, UAMICAO #### [facility] [address] [place], [place] [address] Albumin/Globulin [Mass ratio] 0.9 {ratio} Low 1.1-2.5 [facility] ([place] Comment on above: Performed By: #### P REGU, UA, UAMICAO #### [facility] [address] [place] [address] ALP [Catalytic activity/Vol] 54 U/L Normal 40-135 [facility] ([place]) Comment on above: Performed By: #### P REGU, UA, UAMICAO #### [facility] [address] [place] [address] ALT [Catalytic activity/Vol] 26 U/L Normal 14-59 [facility] ([place]) Comment on above: Performed By: #### P REGU, UA, UAMICAO #### [facility] [address] [place] [address] AST [Catalytic activity/Vol] 15 U/L Normal 10-40 [facility] ([place] Comment on above: Performed By: #### P REGU, UA, UAMICAO #### [facility] [address] [place], [place] [address] Bili Total 0.5 mg/dL Normal 0.2-1.0 [facility] ([place] Comment on above: Result Comment: Use of this assay is not recommended for patients undergoing treatment with eltrombopag due to the potential for falsely elevated results. Performed By: #### P REGU, UA, UAMICAO #### [facility] [address] [place], [place] [address] BUN/Creatinine Ratio 10 ratio Normal 7-27 [facility] ([place] Comment on above: Performed By: #### P REGU, UA, UAMICAO #### [facility] [address] [place], [place] [address] Calcium [Mass/Vol] 9.1 mg/dL Normal 8.4-10.2 [facility] ([place] Comment on above: Performed By: #### P REGU, UA, UAMICAO #### [facility] [address] [place], [place] [address] Chloride [Moles/Vol] 98 mmol/L Normal 98-107 [facility] ([place] Comment on above: Performed By: #### P REGU, UA, UAMICAO #### [facility] [address] [place], [place] [address] CO2 [Moles/Vol] 27 mmol/L Normal 22-29 [facility] ([place] Comment on above: Performed By: #### P REGU, UA, UAMICAO #### [facility] [address] [place], [place] [address] Creatinine [Mass/Vol] 0.78 mg/dL Normal 0.55-1.02 [facility] ([place] Comment on above: Performed By: #### P REGU, UA, UAMICAO #### [facility] [address] [place], [place] [address] Electrolyte Balance 11.0 mEq/L Normal 4.0-15.0 [facility] ([place]) Comment on above: Performed By: #### P REGU, UA, UAMICAO #### [facility] [address] [place], [place] [address] Globulin 3.7 G/dL Normal [facility] ([place] Comment on above: Performed By: #### P REGU, UA, UAMICAO #### [facility] [address] [place], [place] [address] Glucose [Mass/Vol] 379 mg/dL High 70-105 [facility] ([place] Comment on above: Performed By: #### P REGU, UA, UAMICAO #### [facility] [address] [place], [place] [address] Potassium [Moles/Vol] 3.9 mmol/L Normal 3.5-5.1 [facility] ([place] Comment on above: Performed By: #### P REGU, UA, UAMICAO #### Nickolas [place] [address] [place], [place] [address] Sodium [Moles/Vol] 136 mmol/L Normal 136-145 [facility] ([place] Comment on above: Performed By: #### P REGU, UA, UAMICAO #### [facility] [address] [place], [place] [address] Total Protein 7.2 G/dL Normal 6.4-8.2 [facility] ([place] Comment on above: Performed By: #### P REGU, UA, UAMICAO #### [facility] [address] [place], [place] [address] Urea nitrogen [Mass/Vol] 8 mg/dL Normal 7-18 [facility] ([place] Comment on above: Performed By: #### P REGU, UA, UAMICAO #### [facility] [address] [place] [address] ABD/PELVIS W/ IV CONTRAST ONLYon 05-29-2023 CT ABD/PELVIS W/ IV CONTRAST ONLY ORIGINAL EXAMINATION: CT OF THE ABDOMEN AND PELVIS WITH CONTRAST 05/29/2023 12:55 am TECHNIQUE: CT of the abdomen and pelvis was performed with the administration of intravenous contrast. Multiplanar reformatted images are provided for review. Automated exposure control, iterative reconstruction, and/or weight based adjustment of the mA/kV was utilized to reduce the radiation dose to as low as reasonably achievable. COMPARISON: February 24, 2023 HISTORY: ORDERING SYSTEM PROVIDED HISTORY: Reason for Exam: pt arrived to the ED with c/o abd pain with nausea x2 weeks. pain FINDINGS: Lower Chest: Normal heart size. No focal consolidation or pleural effusion. Organs: The liver appears normal. The patient is status post cholecystectomy. The spleen appears enlarged, slightly increased from the prior study now measuring up to 15.5 cm craniocaudad.. The pancreas appears normal. The adrenal glands appear normal. The kidneys enhance symmetrically with no evidence of nephrolithiasis or hydronephrosis. GI/Bowel: There is no evidence of obstruction. The appendix is normal. Pelvis: Mild wall thickening and mucosal enhancement is noted in the bladder, suspicious for cystitis. 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 Peritoneum/Retroperitoneum : There is no intraperitoneal free air or ascites. The aorta and its major branches appear normal. No lymphadenopathy is identified. Bones/Soft Tissues: No focal bone or soft tissue abnormality is seen. IMPRESSION: 1. Bladder wall thickening and mucosal enhancement suspicious for cystitis. Please correlate with urinalysis. 2. Splenomegaly is again seen with the spleen measuring up to 14.5 cm craniocaudad. Interpreted by: Robe Ramey Preliminary Report By: Robe Ramey Electronically signed By Robe Ramey Dictated Date: 05/29/2023 12:57:47 AM Prelim Date: 05/29/2023 1:03:07 AM Sign Date: 05/29/2023 1:03:07 AM Ordering Provider: ROBERTA SALINAS Normal [facility] ([place]) LIPon 05-29-2023 Lipase Level 25 U/L Normal 16-77 [facility] ([place]) Comment on above: Performed By: #### P REGU, UA, UAMICAO #### [facility] [address] [place], [place] [address] PREGUon 05-29-2023 HCG ( test) Ql (U) Negative Normal [facility] ([place] Comment on above: Performed By: #### P REGU, UA, UAMICAO #### [place] [address] [place], [place] [address] test (u) int Not detected Invalid Interpretation Code [facility] ([place] Comment on above: Performed By: #### P REGU, UA, UAMICAO #### [place] [address] [place], [place] [address] UAon 05-29-2023 Color (U) Yellow Normal [facility] ([place] Comment on above: Performed By: #### P REGU, UA, UAMICAO #### [address]olas [address] [place], [place] [address] Glucose (U) [Mass/Vol] mg/dL Abnormal Negative [facility] ([place] Comment on above: Performed By: #### P REGU, UA, UAMICAO #### Nickolas [address] [place], [place] [address] Ketones Ql (U) Negative Normal Negative [facility] ([place] Comment on above: Performed By: #### P REGU, UA, UAMICAO #### [address] [place], [place] [address] UA Appear Slightly Cloudy Abnormal Clear [facility] ([place] Comment on above: Performed By: #### P REGU, UA, UAMICAO #### Nickolas [place] [address] [place], [place] [address] UA Blood Moderate Abnormal Negative [facility] ([place] Comment on above: Performed By: #### P REGU, UA, UAMICAO #### Nickolas [place] [address] [place], [place] [address] UA Leuk Est Small Abnormal Negative [facility] ([place] Comment on above: Performed By: #### P REGU, UA, UAMICAO #### Nickolas [place] [address] [place], [place] [address] UA Nitrite Negative Normal Negative [facility] ([place] Comment on above: Performed By: #### P REGU, UA, UAMICAO #### Nickolas [address] [place], [place] [address] UA pH 5.5 Normal 5.0 - 8.0 [facility] ([place] Comment on above: Performed By: #### P REGU, UA, UAMICAO #### Nickolas [place] [address] [place] [address] UA Protein Trace Normal Negative [facility] ([place] Comment on above: Performed By: #### P REGU, UA, UAMICAO #### Nickolas [place] [address] [place], [place] [address] UA Spec Grav 1.015 Normal 1.015-1.025 [facility] ([place]) Comment on above: Performed By: #### P REGU, UA, UAMICAO #### Nickolas Zu[address] [place] [address] UA Specimen Type Not Given Normal [facility] ([place] Comment on above: Performed By: #### P REGU, UA, UAMICAO #### Nickolas [address] [place] [address] UA Urobilinogen 0.2 E.U./dL Normal 0.2-1.0 [facility] ([place]) Comment on above: Performed By: #### P REGU, UA, UAMICAO #### [address] [place] [address] Urobilinogen (U) [Mass/Vol] Negative Normal Negative [facility] ([place] Comment on above: Performed By: #### P REGU, UA, UAMICAO #### [address]olas [address] [place] [address] LABORATORYOrdered By: SYSTEM SYSTEM on 05-28-2023 Albumin BCP dye [Mass/Vol] 3.5 G/dL Invalid Interpretation Code 3.5 - 5.0 G/dL AO ADM SS Albumin/Globulin [Mass ratio] 0.9 {ratio} Invalid Interpretation Code 1.1 - 2.5 ratio AO ADM SS ALP [Catalytic activity/Vol] 54 U/L Invalid Interpretation Code 40 - 135 U/L AO ADM SS ALT With P-5'-P [Catalytic activity/Vol] 26 U/L Invalid Interpretation Code 14 - 59 U/L AO ADM SS AST With P-5'-P [Catalytic activity/Vol] 15 U/L Invalid Interpretation Code 10 - 40 U/L AO ADM SS Basophil, Absolute 0.2 103/mcL Invalid Interpretation Code 0.0 - 0.2 10^3/mcL AO Workflow SS Basophils/100 WBC (Bld) 1.0 % Invalid Interpretation Code 0.0 - 2.5 % AO Workflow SS Bilirubin [Mass/Vol] 0.5 mg/dL Invalid Interpretation Code 0.2 - 1.0 mg/dL AO ADM SS Comment on above: Interpretive Data: U se of this assay is not recommended for patients undergoing treatment with eltrombopag due to the potential for falsely elevated results. Calcium [Mass/Vol] 9.1 mg/dL Invalid Interpretation Code 8.4 - 10.2 mg/dL AO ADM SS Chloride [Moles/Vol] 98 mmol/L Invalid Interpretation Code 98 - 107 mmol/L AO ADM SS CO2 [Moles/Vol] 27 mmol/L Invalid Interpretation Code 22 - 29 mmol/L AO ADM SS Creatinine [Mass/Vol] 0.78 mg/dL Invalid Interpretation Code 0.55 - 1.02 mg/dL AO ADM SS Electrolyte Balance 11.0 mEq/L Invalid Interpretation Code 4.0 - 15.0 mEq/L AO ADM SS Eosinophil, Absolute 0.2 103/mcL Invalid Interpretation Code 0.0 - 0.4 10^3/mcL AO Workflow SS Eosinophils/100 WBC (Bld) 1.0 % Invalid Interpretation Code 0.0 - 7.0 % AO Workflow SS Erythrocyte distribution width (RBC) [Ratio] 13.8 % Invalid Interpretation Code 11.5 - 14.5 % AO Workflow SS GFR/1.73 sq M.predicted among blacks MDRD (S/P/Bld) [Vol rate/Area] 108 ml/min/1.73sqm Invalid Interpretation Code AO Chemistry S Comment on above: Interpretive Data: GFR Population mean for , Non- Americans Ages 20-29 = 116 mL/min/1.73 sq.m. Ages 30-39 = 107 mL/min/1.73 sq.m. Ages 40-49 = 99 mL/min/1.73 sq.m. Ages 50-59 = 93 mL/min/1.73 sq.m. Ages 60-69 = 85 mL/min/1.73 sq.m. Ages 70+ = 75 mL/min/1.73 sq.m. Chronic Kidney Disease: Less than 60 mL/min/1.73 square meters End Stage Renal Disease: Less than 15 mL/min/1.73 square meters GFR/1.73 sq M.predicted among non-blacks MDRD (S/P/Bld) [Vol rate/Area] 89 ml/min/1.73sqm Invalid Interpretation Code AO Chemistry S Comment on above: Interpretive Data: GFR Population mean for , Non- Americans Ages 20-29 = 116 mL/min/1.73 sq.m. Ages 30-39 = 107 mL/min/1.73 sq.m. Ages 40-49 = 99 mL/min/1.73 sq.m. Ages 50-59 = 93 mL/min/1.73 sq.m. Ages 60-69 = 85 mL/min/1.73 sq.m. Ages 70+ = 75 mL/min/1.73 sq.m. Chronic Kidney Disease: Less than 60 mL/min/1.73 square meters End Stage Renal Disease: Less than 15 mL/min/1.73 square meters Globulin 3.7 G/dL Invalid Interpretation Code AO ADM SS Glucose [Mass/Vol] 379 mg/dL Invalid Interpretation Code 70 - 105 mg/dL AO ADM SS Hematocrit (Bld) [Volume fraction] 39.7 % Invalid Interpretation Code 37.0 - 47.0 % AO Workflow SS Hemoglobin (Bld) [Mass/Vol] 13.4 G/dL Invalid Interpretation Code 12.0 - 16.0 G/dL AO Workflow SS Lipase [Catalytic activity/Vol] 25 U/L Invalid Interpretation Code 16 - 77 U/L AO ADM SS Lymphocyte, Absolute 4.2 103/mcL Invalid Interpretation Code 0.8 - 3.9 10^3/mcL AO Workflow SS Lymphocytes/100 WBC (Bld) 24.8 % Invalid Interpretation Code 10.0 - 50.0 % AO Workflow SS MCH (RBC) [Entitic mass] 27.2 pg Invalid Interpretation Code 27.0 - 31.2 pg AO Workflow SS MCHC 33.7 G/dL Invalid Interpretation Code 33.0 - 37.0 G/dL AO Workflow SS MCV (RBC) [Entitic vol] 80.9 fL Invalid Interpretation Code 80.0 - 94.0 fL AO Workflow SS Monocyte distribution width Auto (Bld) [Entitic vol] 19.03 1 Invalid Interpretation Code 0.00 - 20.00 AO Workflow SS Comment on above: Result Comment: For ED adult patients suspected of sepsis, MDW<=20.0 does not rule out sepsis or risk of sepsis Monocyte, Absolute 1.1 103/mcL Invalid Interpretation Code 0.2 - 1.0 10^3/mcL AO Workflow SS Monocytes/100 WBC (Bld) 6.7 % Invalid Interpretation Code 1.7 - 13.0 % AO Workflow SS Neutrophil, Absolute 11.3 103/mcL Invalid Interpretation Code 2.9 - 6.2 10^3/mcL AO Workflow SS Neutrophils/100 WBC (Bld) 66.5 % Invalid Interpretation Code 37.0 - 80.0 % AO Workflow SS Platelet mean volume (Bld) [Entitic vol] 9.5 fL Invalid Interpretation Code 7.4 - 10.4 fL AO Workflow SS Platelets (Bld) [#/Vol] 302 103/mcL Invalid Interpretation Code 130 - 400 10^3/mcL AO Workflow SS Potassium [Moles/Vol] 3.9 mmol/L Invalid Interpretation Code 3.5 - 5.1 mmol/L AO ADM SS Protein [Mass/Vol] 7.2 G/dL Invalid Interpretation Code 6.4 - 8.2 G/dL AO ADM SS RBC (Bld) [#/Vol] 4.91 106/mcL Invalid Interpretation Code 4.20 - 5.40 10^6/mcL AO Workflow SS Sodium [Moles/Vol] 136 mmol/L Invalid Interpretation Code 136 - 145 mmol/L AO ADM SS Urea nitrogen [Mass/Vol] 8 mg/dL Invalid Interpretation Code 7 - 18 mg/dL AO ADM SS Urea nitrogen/Creatinine [Mass ratio] 10 ratio Invalid Interpretation Code 7 - 27 ratio AO ADM SS WBC (Bld) [#/Vol] 17.0 103/mcL Invalid Interpretation Code 4.6 - 10.8 10^3/mcL AO Workflow SS LABORATORYOrdered By: Nadya Baitsta on 05-28-2023 Appearance (U) Slightly Cloudy *ABN* (05/28/23 11:48 PM) Invalid Interpretation Code Clear AO Auto Urine SS Bacteria LM.HPF (Urine sed) [#/Area] 3 /[HPF] Invalid Interpretation Code AO Auto Urine SS Bilirubin Ql (U) Negative (05/28/23 11:48 PM) Invalid Interpretation Code Negative AO Auto Urine SS Color (U) Yellow (05/28/23 11:48 PM) Invalid Interpretation Code AO Auto Urine SS Glucose Test strip (U) [Mass/Vol] >=1000 mg/dL Invalid Interpretation Code Negative AO Auto Urine SS HCG ( test) Ql Negative (05/28/23 11:48 PM) Invalid Interpretation Code AO Manual Urine SS Hemoglobin Auto test strip (U) [Mass/Vol] Moderate *ABN* (05/28/23 11:48 PM) Invalid Interpretation Code Negative AO Auto Urine SS Ketones Ql (U) Negative Invalid Interpretation Code Negative AO Auto Urine SS test (u) int Not detected Invalid Interpretation Code AO Manual Urine SS UA Leuk Est Small *ABN* (05/28/23 11:48 PM) Invalid Interpretation Code Negative AO Auto Urine SS UA Nitrite Negative (05/28/23 11:48 PM) Invalid Interpretation Code Negative AO Auto Urine SS UA pH 5.5 (05/28/23 11:48 PM) Invalid Interpretation Code 5.0 - 8.0 AO Auto Urine SS UA Protein Trace mg/dL Invalid Interpretation Code Negative AO Auto Urine SS UA RBC 5-10 /HPF Invalid Interpretation Code None Seen AO Auto Urine SS UA Spec Grav 1.015 (05/28/23 11:48 PM) Invalid Interpretation Code 1.015-1.025 AO Auto Urine SS UA Specimen Type Not Given (05/28/23 11:48 PM) Invalid Interpretation Code AO Auto Urine SS UA Squam Epithelial 0-5 /HPF Invalid Interpretation Code None Seen AO Auto Urine SS UA Urobilinogen 0.2 E.U./dL Invalid Interpretation Code 0.2-1.0 AO Auto Urine SS WBC LM.HPF (Urine sed) [#/Area] LOADED /HPF Invalid Interpretation Code None Seen AO Auto Urine SS .Auto Diffon 03-21-2023 Basophil, Absolute 0.1 10 3/mcL Normal 0.0-0.2 [facility] ([place] Comment on above: Performed By: #### M DW, ADIFF, GFR, CBC, ANEU, CMP, PHV, LIP, DAVID #### [address] [address] Basophils/100 WBC (Bld) 1.0 % Normal 0.0-2.5 [facility] ([place]) Comment on above: Performed By: #### M DW, ADIFF, GFR, CBC, ANEU, CMP, PHV, LIP, DAVID #### [address] [address] Eosinophil, Absolute 0.3 10 3/mcL Normal 0.0-0.4 [facility] ([place]) Comment on above: Performed By: #### M DW, ADIFF, GFR, CBC, ANEU, CMP, PHV, LIP, DAVID #### [address] [address] Eosinophils/100 WBC (Bld) 1.9 % Normal 0.0-7.0 [facility] ([place] Comment on above: Performed By: #### M DW, ADIFF, GFR, CBC, ANEU, CMP, PHV, LIP, DAVID #### [address] [address] Lymphocyte, Absolute 4.9 10 3/mcL High 0.8-3.9 [facility] ([place] Comment on above: Performed By: #### M DW, ADIFF, GFR, CBC, ANEU, CMP, PHV, LIP, DAVID #### [address] [address] Lymphocytes/100 WBC (Bld) 35.6 % Normal 10.0-50.0 [facility] ([place] Comment on above: Performed By: #### M DW, ADIFF, GFR, CBC, ANEU, CMP, PHV, LIP, DAVID #### [address] [address] Monocyte, Absolute 0.9 10 3/mcL Normal 0.2-1.0 [facility] ([place] Comment on above: Performed By: #### M DW, ADIFF, GFR, CBC, ANEU, CMP, PHV, LIP, DAVID #### [address] [address] Monocytes/100 WBC (Bld) 6.7 % Normal 1.7-13.0 [facility] ([place] Comment on above: Performed By: #### M DW, ADIFF, GFR, CBC, ANEU, CMP, PHV, LIP, DAVID #### [address] [address] Neutrophils/100 WBC (Bld) 54.8 % Normal 37.0-80.0 [facility] ([place] Comment on above: Performed By: #### M DW, ADIFF, GFR, CBC, ANEU, CMP, PHV, LIP, DAVID #### [address] [address] .GFRon 03-21-2023 GFR Non- 69 ml/min/1.73sqm Normal [facility] ([place] Comment on above: Result Comment: GFR Population mean for , Non- Americans Ages 20-29 = 116 mL/min/1.73 sq.m. Ages 30-39 = 107 mL/min/1.73 sq.m. Ages 40-49 = 99 mL/min/1.73 sq.m. Ages 50-59 = 93 mL/min/1.73 sq.m. Ages 60-69 = 85 mL/min/1.73 sq.m. Ages 70+ = 75 mL/min/1.73 sq.m. Chronic Kidney Disease: Less than 60 mL/min/1.73 square meters End Stage Renal Disease: Less than 15 mL/min/1.73 square meters Performed By: #### M DW, ADIFF, GFR, CBC, ANEU, CMP, PHV, LIP, DAVID ####[id number] [place], [place] [address] GFR 84 ml/min/1.73sqm Normal [facility] ([place] Comment on above: Result Comment: GFR Population mean for , Non- Americans Ages 20-29 = 116 mL/min/1.73 sq.m. Ages 30-39 = 107 mL/min/1.73 sq.m. Ages 40-49 = 99 mL/min/1.73 sq.m. Ages 50-59 = 93 mL/min/1.73 sq.m. Ages 60-69 = 85 mL/min/1.73 sq.m. Ages 70+ = 75 mL/min/1.73 sq.m. Chronic Kidney Disease: Less than 60 mL/min/1.73 square meters End Stage Renal Disease: Less than 15 mL/min/1.73 square meters Performed By: #### M DW, ADIFF, GFR, CBC, ANEU, CMP, PHV, LIP, DAVID ####Nickolas [address] [place], [place] [address] .MDWon 03-21-2023 Monocyte Distribution Width 16.38 Normal 0.00-20.00 [facility] ([place] Comment on above: Result Comment: For ED adult patients suspected of sepsis, MDW<=20.0 does not rule out sepsis or risk of sepsis Performed By: #### M DW, ADIFF, GFR, CBC, ANEU, CMP, PHV, LIP, DAVID ####[address] [address] .NEUABSon 03-21-2023 Neutrophil, Absolute 7.5 10 3/mcL High 2.9-6.2 [facility] ([place] Comment on above: Performed By: #### M DW, ADIFF, GFR, CBC, ANEU, CMP, PHV, LIP, DAVID #### [place] [address] ACTONon 03-21-2023 Acetone (s) Small Abnormal Negative [facility] ([place] Comment on above: Performed By: #### M DW, ADIFF, GFR, CBC, ANEU, CMP, PHV, LIP, DAVID ####[place] [address] CBCon 03-21-2023 Erythrocyte distribution width (RBC) [Ratio] 13.4 % Normal 11.5-14.5 [facility] ([place] Comment on above: Performed By: #### M DW, ADIFF, GFR, CBC, ANEU, CMP, PHV, LIP, DAVID #### [address] [address] Hematocrit (Bld) [Volume fraction] 38.1 % Normal 37.0-47.0 [facility] ([place] Comment on above: Performed By: #### M DW, ADIFF, GFR, CBC, ANEU, CMP, PHV, LIP, DAVID #### [address] [address] Hgb 12.9 G/dL Normal 12.0-16.0 [facility] ([place] Comment on above: Performed By: #### M DW, ADIFF, GFR, CBC, ANEU, CMP, PHV, LIP, ADVID #### [address] [address] MCH (RBC) [Entitic mass] 27.6 pg Normal 27.0-31.2 [facility] ([place] Comment on above: Performed By: #### M DW, ADIFF, GFR, CBC, ANEU, CMP, PHV, LIP, DAVID #### [address] [address] MCHC 33.7 G/dL Normal 33.0-37.0 [facility] ([place] Comment on above: Performed By: #### M DW, ADIFF, GFR, CBC, ANEU, CMP, PHV, LIP, DAVID #### [address] [address] MCV (RBC) [Entitic vol] 81.8 fL Normal 80.0-94.0 [facility] [place] Comment on above: Performed By: #### M DW, ADIFF, GFR, CBC, ANEU, CMP, PHV, LIP, DAVID #### [address] [address] Platelet 315 10 3/mcL Normal 130-400 [facility] ([place] Comment on above: Performed By: #### M DW, ADIFF, GFR, CBC, ANEU, CMP, PHV, LIP, DAVID #### [address] [address] Platelet mean volume (Bld) [Entitic vol] 9.8 fL Normal 7.4-10.4 [facility] [place] Comment on above: Performed By: #### M DW, ADIFF, GFR, CBC, ANEU, CMP, PHV, LIP, DAVID #### [address] [address] RBC 4.66 10 6/mcL Normal 4.20-5.40 [facility] ([place] Comment on above: Performed By: #### M DW, ADIFF, GFR, CBC, ANEU, CMP, PHV, LIP, DAVID #### [address] [address] WBC 13.8 10 3/mcL High 4.6-10.8 [facility] ([place] Comment on above: Performed By: #### M DW, ADIFF, GFR, CBC, ANEU, CMP, PHV, LIP, DAVID #### [facility] [address] [place], [place] [address] CMPon 03-21-2023 Albumin Level 3.4 G/dL Low 3.5-5.0 [facility] ([place] Comment on above: Performed By: #### M DW, ADIFF, GFR, CBC, ANEU, CMP, PHV, LIP, DAVID ####[address] [place], [place] [address] Albumin/Globulin [Mass ratio] 1.1 {ratio} Normal 1.1-2.5 [facility] ([place] Comment on above: Performed By: #### M DW, ADIFF, GFR, CBC, ANEU, CMP, PHV, LIP, DAVID ####[address] [place], [place] [address] ALP [Catalytic activity/Vol] 48 U/L Normal 40-135 [facility] [place] Comment on above: Performed By: #### M DW, ADIFF, GFR, CBC, ANEU, CMP, PHV, LIP, DAVID ####[address] [place], [place] [address] ALT [Catalytic activity/Vol] 23 U/L Normal 14-59 [facility] [place] Comment on above: Performed By: #### M DW, ADIFF, GFR, CBC, ANEU, CMP, PHV, LIP, DAVID ####[address] [place], [place] [address] AST [Catalytic activity/Vol] 12 U/L Normal 10-40 [facility] [place] Comment on above: Performed By: #### M DW, ADIFF, GFR, CBC, ANEU, CMP, PHV, LIP, DAVID ####[address] [place], [place] [address] Bili Total 0.4 mg/dL Normal 0.2-1.0 [facility] ([place] Comment on above: Result Comment: Use of this assay is not recommended for patients undergoing treatment with eltrombopag due to the potential for falsely elevated results. Performed By: #### M DW, ADIFF, GFR, CBC, ANEU, CMP, PHV, LIP, DAVID ####[address] [place], [place] [address] BUN/Creatinine Ratio 8 ratio Normal 7-27 [facility] ([place] Comment on above: Performed By: #### M DW, ADIFF, GFR, CBC, ANEU, CMP, PHV, LIP, DAVID ####[address] [place], [place] [address] Calcium [Mass/Vol] 8.9 mg/dL Normal 8.4-10.2 [facility] ([place] Comment on above: Performed By: #### M DW, ADIFF, GFR, CBC, ANEU, CMP, PHV, LIP, DAVID ####[address] [place], [place] [address] Chloride [Moles/Vol] 101 mmol/L Normal 98-107 [facility] ([place] Comment on above: Performed By: #### M DW, ADIFF, GFR, CBC, ANEU, CMP, PHV, LIP, DAVID ####[address] [place], [place] [address] CO2 [Moles/Vol] 22 mmol/L Normal 22-29 [facility] [place] Comment on above: Performed By: #### M DW, ADIFF, GFR, CBC, ANEU, CMP, PHV, LIP, DAVID ####[address] [place], [place] [address] Creatinine [Mass/Vol] 0.97 mg/dL Normal 0.55-1.02 [facility] ([place] Comment on above: Performed By: #### M DW, ADIFF, GFR, CBC, ANEU, CMP, PHV, LIP, DAVID ####[address] [place], [place] [address] Electrolyte Balance 14.0 mEq/L Normal 4.0-15.0 [facility] ([place] Comment on above: Performed By: #### M DW, ADIFF, GFR, CBC, ANEU, CMP, PHV, LIP, DAVID ####[address] [place], [place] [address] Globulin 3.0 G/dL Normal [facility] ([place] Comment on above: Performed By: #### M DW, ADIFF, GFR, CBC, ANEU, CMP, PHV, LIP, DAVID ####[address] [place], [place] [address] Glucose [Mass/Vol] 346 mg/dL High 70-105 [facility] ([place] Comment on above: Performed By: #### M DW, ADIFF, GFR, CBC, ANEU, CMP, PHV, LIP, DAVID ####[address] [place], [place] [address] Potassium [Moles/Vol] 3.6 mmol/L Normal 3.5-5.1 [facility] ([place] Comment on above: Performed By: #### M DW, ADIFF, GFR, CBC, ANEU, CMP, PHV, LIP, DAVID ####[address] [place], [place] [address] Sodium [Moles/Vol] 137 mmol/L Normal 136-145 [facility] ([place] Comment on above: Performed By: #### M DW, ADIFF, GFR, CBC, ANEU, CMP, PHV, LIP, DAVID ####[address] [place], [place] [address] Total Protein 6.4 G/dL Normal 6.4-8.2 [facility] ([place] Comment on above: Performed By: #### M DW, ADIFF, GFR, CBC, ANEU, CMP, PHV, LIP, DAVID ####[address] [place], [place] [address] Urea nitrogen [Mass/Vol] 8 mg/dL Normal 7-18 [facility] ([place] Comment on above: Performed By: #### M DW, ADIFF, GFR, CBC, ANEU, CMP, PHV, LIP, DAVID ####[address] [place], [place] [address] LABORATORYOrdered By: SYSTEM SYSTEM on 03-21-2023 Albumin BCP dye [Mass/Vol] 3.4 G/dL Invalid Interpretation Code 3.5 - 5.0 G/dL AO ADM SS Albumin/Globulin [Mass ratio] 1.1 {ratio} Invalid Interpretation Code 1.1 - 2.5 ratio AO ADM SS ALP [Catalytic activity/Vol] 48 U/L Invalid Interpretation Code 40 - 135 U/L AO ADM SS ALT With P-5'-P [Catalytic activity/Vol] 23 U/L Invalid Interpretation Code 14 - 59 U/L AO ADM SS AST With P-5'-P [Catalytic activity/Vol] 12 U/L Invalid Interpretation Code 10 - 40 U/L AO ADM SS Bilirubin [Mass/Vol] 0.4 mg/dL Invalid Interpretation Code 0.2 - 1.0 mg/dL AO ADM SS Calcium [Mass/Vol] 8.9 mg/dL Invalid Interpretation Code 8.4 - 10.2 mg/dL AO ADM SS Chloride [Moles/Vol] 101 mmol/L Invalid Interpretation Code 98 - 107 mmol/L AO ADM SS CO2 [Moles/Vol] 22 mmol/L Invalid Interpretation Code 22 - 29 mmol/L AO ADM SS Creatinine [Mass/Vol] 0.97 mg/dL Invalid Interpretation Code 0.55 - 1.02 mg/dL AO ADM SS Electrolyte Balance 14.0 mEq/L Invalid Interpretation Code 4.0 - 15.0 mEq/L AO ADM SS GFR/1.73 sq M.predicted among blacks MDRD (S/P/Bld) [Vol rate/Area] 84 ml/min/1.73sqm Invalid Interpretation Code AO Chemistry S GFR/1.73 sq M.predicted among non-blacks MDRD (S/P/Bld) [Vol rate/Area] 69 ml/min/1.73sqm Invalid Interpretation Code AO Chemistry S Globulin 3.0 G/dL Invalid Interpretation Code AO ADM SS Glucose [Mass/Vol] 346 mg/dL Invalid Interpretation Code 70 - 105 mg/dL AO ADM SS Lipase [Catalytic activity/Vol] 30 U/L Invalid Interpretation Code 16 - 77 U/L AO ADM SS Potassium [Moles/Vol] 3.6 mmol/L Invalid Interpretation Code 3.5 - 5.1 mmol/L AO ADM SS Protein [Mass/Vol] 6.4 G/dL Invalid Interpretation Code 6.4 - 8.2 G/dL AO ADM SS Sodium [Moles/Vol] 137 mmol/L Invalid Interpretation Code 136 - 145 mmol/L AO ADM SS Urea nitrogen [Mass/Vol] 8 mg/dL Invalid Interpretation Code 7 - 18 mg/dL AO ADM SS Urea nitrogen/Creatinine [Mass ratio] 8 ratio Invalid Interpretation Code 7 - 27 ratio AO ADM SS LABORATORYOrdered By: Howard Mendez on 03-21-2023 Appearance (U) Clear (03/21/23 8:23 PM) Invalid Interpretation Code Clear AO Auto Urine SS Basophil, Absolute 0.1 103/mcL Invalid Interpretation Code 0.0 - 0.2 10^3/mcL AO Workflow SS Basophils/100 WBC (Bld) 1.0 % Invalid Interpretation Code 0.0 - 2.5 % AO Workflow SS Bilirubin Ql (U) Negative (03/21/23 8:23 PM) Invalid Interpretation Code Negative AO Auto Urine SS Color (U) Yellow (03/21/23 8:23 PM) Invalid Interpretation Code AO Auto Urine SS Eosinophil, Absolute 0.3 103/mcL Invalid Interpretation Code 0.0 - 0.4 10^3/mcL AO Workflow SS Eosinophils/100 WBC (Bld) 1.9 % Invalid Interpretation Code 0.0 - 7.0 % AO Workflow SS Erythrocyte distribution width (RBC) [Ratio] 13.4 % Invalid Interpretation Code 11.5 - 14.5 % AO Workflow SS Glucose Test strip (U) [Mass/Vol] 500 mg/dL Invalid Interpretation Code Negativemg/dL AO Auto Urine SS HCG ( test) Ql Negative (03/21/23 8:23 PM) Invalid Interpretation Code AO Manual Urine SS Hematocrit (Bld) [Volume fraction] 38.1 % Invalid Interpretation Code 37.0 - 47.0 % AO Workflow SS Hemoglobin (Bld) [Mass/Vol] 12.9 G/dL Invalid Interpretation Code 12.0 - 16.0 G/dL AO Workflow SS Hemoglobin Auto test strip (U) [Mass/Vol] Negative (03/21/23 8:23 PM) Invalid Interpretation Code Negative AO Auto Urine SS Ketones [Mass/Vol] Small mg/dL Invalid Interpretation Code Negativemg/dL AO Rapid Testing SS Ketones Ql (U) 15 mg/dL Invalid Interpretation Code Negativemg/dL AO Auto Urine SS Lymphocyte, Absolute 4.9 103/mcL Invalid Interpretation Code 0.8 - 3.9 10^3/mcL AO Workflow SS Lymphocytes/100 WBC (Bld) 35.6 % Invalid Interpretation Code 10.0 - 50.0 % AO Workflow SS MCH (RBC) [Entitic mass] 27.6 pg Invalid Interpretation Code 27.0 - 31.2 pg AO Workflow SS MCHC 33.7 G/dL Invalid Interpretation Code 33.0 - 37.0 G/dL AO Workflow SS MCV (RBC) [Entitic vol] 81.8 fL Invalid Interpretation Code 80.0 - 94.0 fL AO Workflow SS Monocyte distribution width Auto (Bld) [Entitic vol] 16.38 Invalid Interpretation Code 0.00 - 20.00 AO Workflow SS Comment on above: Result Comment: For ED adult patients suspected of sepsis, MDW<=20.0 does not rule out sepsis or risk of sepsis Monocyte, Absolute 0.9 103/mcL Invalid Interpretation Code 0.2 - 1.0 10^3/mcL AO Workflow SS Monocytes/100 WBC (Bld) 6.7 % Invalid Interpretation Code 1.7 - 13.0 % AO Workflow SS Neutrophil, Absolute 7.5 103/mcL Invalid Interpretation Code 2.9 - 6.2 10^3/mcL AO Workflow SS Neutrophils/100 WBC (Bld) 54.8 % Invalid Interpretation Code 37.0 - 80.0 % AO Workflow SS pH (BldV) 7.39 [pH] Invalid Interpretation Code 7.31 - 7.41 AO Blood Gas SS Platelet mean volume (Bld) [Entitic vol] 9.8 fL Invalid Interpretation Code 7.4 - 10.4 fL AO Workflow SS Platelets (Bld) [#/Vol] 315 103/mcL Invalid Interpretation Code 130 - 400 10^3/mcL AO Workflow SS test (u) int Not detected Invalid Interpretation Code AO Manual Urine SS RBC (Bld) [#/Vol] 4.66 106/mcL Invalid Interpretation Code 4.20 - 5.40 10^6/mcL AO Workflow SS UA Leuk Est Negative (03/21/23 8:23 PM) Invalid Interpretation Code Negative AO Auto Urine SS UA Nitrite Negative (03/21/23 8:23 PM) Invalid Interpretation Code Negative AO Auto Urine SS UA pH 5.5 (03/21/23 8:23 PM) Invalid Interpretation Code 5.0 - 8.0 AO Auto Urine SS UA Protein Negative Invalid Interpretation Code Negativemg/dL AO Auto Urine SS UA Spec Grav 1.015 (03/21/23 8:23 PM) Invalid Interpretation Code 1.015-1.025 AO Auto Urine SS UA Specimen Type Clean Catch (03/21/23 8:23 PM) Invalid Interpretation Code AO Auto Urine SS UA Urobilinogen 0.2 E.U./dL Invalid Interpretation Code 0.2-1.0E.U./dL AO Auto Urine SS WBC (Bld) [#/Vol] 13.8 103/mcL Invalid Interpretation Code 4.6 - 10.8 10^3/mcL AO Workflow SS LIPon 03-21-2023 Lipase Level 30 U/L Normal 16-77 [facility] ([place] Comment on above: Performed By: #### M DW, ADIFF, GFR, CBC, ANEU, CMP, PHV, LIP, DAVID ####[address] [place], [place] [address] PHVon 03-21-2023 pH Venous 7.39 Normal 7.31-7.41 [facility] ([place] Comment on above: Performed By: #### M DW, ADIFF, GFR, CBC, ANEU, CMP, PHV, LIP, DAVID ####[address] [place], [place] [address] PREGUon 03-21-2023 HCG ( test) Ql (U) Negative Normal [facility] ([place] Comment on above: Performed By: #### P REGU, UA ####[address] [place], [place] [address] test (u) int Not detected Invalid Interpretation Code [facility] ([place] Comment on above: Performed By: #### P REGU, UA ####[address] [place], [place] [address] UAon 03-21-2023 Color (U) Yellow Normal [facility] ([place] Comment on above: Performed By: #### P REGU, UA ####[address] [place], [place] [address] Glucose (U) [Mass/Vol] 500 mg/dL Abnormal Negative [facility] ([place] Comment on above: Performed By: #### P REGU, UA ####[address] [place], [place] [address] Ketones Ql (U) 15 mg/dL Abnormal Negative [facility] ([place] Comment on above: Performed By: #### P REGU, UA ####[address] [place] [address] UA Appear Clear Normal Clear [facility] ([place] Comment on above: Performed By: #### P REGU, UA ####[address] [place] [id number] UA Blood Negative Normal Negative [facility] ([place] Comment on above: Performed By: #### P REGU, UA ####[address] [place] [address] UA Leuk Est Negative Normal Negative [facility] ([place] Comment on above: Performed By: #### P REGU, UA ####[address] [place] [address] UA Nitrite Negative Normal Negative [facility] ([place] Comment on above: Performed By: #### P REGU, UA ####[address] [place] [address] UA pH 5.5 Normal 5.0 - 8.0 [facility] ([place] Comment on above: Performed By: #### P REGU, UA ####[address] [place] [address] UA Protein Negative Normal Negative [facility] ([place] Comment on above: Performed By: #### P REGU, UA ####[address] [place] [address] UA Spec Grav 1.015 Normal 1.015-1.025 [facility] ([place] Comment on above: Performed By: #### P REGU, UA ####[address] [place] [address] UA Specimen Type Clean Catch Normal [facility] ([place] Comment on above: Performed By: #### P REGU, UA ####[address] [place] [address] UA Urobilinogen 0.2 E.U./dL Normal 0.2-1.0 [facility] ([place] Comment on above: Performed By: #### P REGU, UA ####Nickolas [address] [place], [place] [address] Urobilinogen (U) [Mass/Vol] Negative Normal Negative [facility] ([place] Comment on above: Performed By: #### P REGU, UA ####[address] [place], [place] [address] GLUCOSE, BLOOD (POC)on 03-13 Glucose [Mass/Vol] 471 mg/dL Abnormal 74 - 99 mg/dL [facility] UA DIP, URINE (POC)on 2022 BILIRUBIN UA (POCT) Negative Negative [facility] CLARITY UA (POCT) Clear [facility] COLOR UA (POCT) Yellow [facility] GLUCOSE UA (POCT) >=1000 Abnormal Negative mg/dL [facility] HEMOGLOBIN/BLOOD UA (POCT) Small Abnormal Negative [facility] KETONE UA (POCT) Trace Negative mg/dL [facility] LEUKOCYTES UA (POCT) Negative Negative [facility] NITRITE UA (POCT) Negative Negative [facility] PH UA (POCT) 5.0 4.5 - 8.0 [facility] Protein Ql (U) 30 mg/dL Abnormal Negative mg/dL [facility] SPECIFIC GRAVITY UA (POCT) 1.010 1.005 - 1.030 [facility] UROBILINOGEN UA (POCT) 0.2 E.U./dL Normal E.U./dL [facility] .Auto Diffon 02-24-2023 Basophil, Absolute 0.1 10 3/mcL Normal 0.0-0.2 [facility] ([place] Comment on above: Performed By: #### P REGU, UA, UAMICAO #### [address] [place], [place] [address] Basophils/100 WBC (Bld) 0.9 % Normal 0.0-2.5 [facility] ([place] Comment on above: Performed By: #### P REGU, UA, UAMICAO #### [address] [place], [place] [address] Eosinophil, Absolute 0.2 10 3/mcL Normal 0.0-0.4 [facility] ([place] Comment on above: Performed By: #### P REGU, UA, UAMICAO #### [address] [place], [place] [address] Eosinophils/100 WBC (Bld) 1.5 % Normal 0.0-7.0 [facility] ([place] Comment on above: Performed By: #### P REGU, UA, UAMICAO #### [address] [place], [place] [address] Lymphocyte, Absolute 4.4 10 3/mcL High 0.8-3.9 [facility] ([place] Comment on above: Performed By: #### P REGU, UA, UAMICAO #### [address] [place], [place] [address] Lymphocytes/100 WBC (Bld) 27.2 % Normal 10.0-50.0 [facility] ([place] Comment on above: Performed By: #### P REGU, UA, UAMICAO #### [address] [place], [place] [address] Monocyte, Absolute 1.0 10 3/mcL Normal 0.2-1.0 [facility] ([place] Comment on above: Performed By: #### P REGU, UA, UAMICAO #### [address] [place], [place] [address] Monocytes/100 WBC (Bld) 6.3 % Normal 1.7-13.0 [facility] ([place] Comment on above: Performed By: #### P REGU, UA, UAMICAO #### [address] [place], [place] [address] Neutrophils/100 WBC (Bld) 64.1 % Normal 37.0-80.0 [facility] ([place] Comment on above: Performed By: #### P REGU, UA, UAMICAO #### [address] [place] [address] [place], [place] [address] .GFRon 02-24-2023 GFR 146 ml/min/1.73sqm Normal [facility] ([place] Comment on above: Result Comment: GFR Population mean for , Non- Americans Ages 20-29 = 116 mL/min/1.73 sq.m. Ages 30-39 = 107 mL/min/1.73 sq.m. Ages 40-49 = 99 mL/min/1.73 sq.m. Ages 50-59 = 93 mL/min/1.73 sq.m. Ages 60-69 = 85 mL/min/1.73 sq.m. Ages 70+ = 75 mL/min/1.73 sq.m. Chronic Kidney Disease: Less than 60 mL/min/1.73 square meters End Stage Renal Disease: Less than 15 mL/min/1.73 square meters Performed By: #### P REGU, UA, UAMICAO #### [address] [place] [address] [place], [place] [address] GFR Non- 121 ml/min/1.73sqm Normal [facility] ([place] Comment on above: Result Comment: GFR Population mean for , Non- Americans Ages 20-29 = 116 mL/min/1.73 sq.m. Ages 30-39 = 107 mL/min/1.73 sq.m. Ages 40-49 = 99 mL/min/1.73 sq.m. Ages 50-59 = 93 mL/min/1.73 sq.m. Ages 60-69 = 85 mL/min/1.73 sq.m. Ages 70+ = 75 mL/min/1.73 sq.m. Chronic Kidney Disease: Less than 60 mL/min/1.73 square meters End Stage Renal Disease: Less than 15 mL/min/1.73 square meters Performed By: #### P REGU, UA, UAMICAO #### Nickolas [address] [place], [place] [address] .MDWon 02-24-2023 Monocyte Distribution Width 17.88 Normal 0.00-20.00 [facility] ([place] Comment on above: Result Comment: For ED adult patients suspected of sepsis, MDW<=20.0 does not rule out sepsis or risk of sepsis Performed By: #### P REGU, UA, UAMICAO #### [address] [place] [address] [place], [place] [address] .NEUABSon 02-24-2023 Neutrophil, Absolute 10.2 10 3/mcL High 2.9-6.2 [facility] ([place] Comment on above: Performed By: #### P REGU, UA, UAMICAO #### [address] [place], [place] [address] CBCon 02-24-2023 Erythrocyte distribution width (RBC) [Ratio] 13.6 % Normal 11.5-14.5 [facility] ([place] Comment on above: Performed By: #### P REGU, UA, UAMICAO #### [address] [place], [place] [address] Hematocrit (Bld) [Volume fraction] 42.5 % Normal 37.0-47.0 [facility] ([place] Comment on above: Performed By: #### P REGU, UA, UAMICAO #### [facility] [address] [place], [place] [address] Hgb 14.2 G/dL Normal 12.0-16.0 [facility] ([place] Comment on above: Performed By: #### P REGU, UA, UAMICAO #### [facility] [address] [place], [place] [address] MCH (RBC) [Entitic mass] 27.5 pg Normal 27.0-31.2 [facility] ([place] Comment on above: Performed By: #### P REGU, UA, UAMICAO #### [address] [place], [place] [address] MCHC 33.4 G/dL Normal 33.0-37.0 [facility] ([place] Comment on above: Performed By: #### P REGU, UA, UAMICAO #### [facility] [address] [place], [place] [address] MCV (RBC) [Entitic vol] 82.4 fL Normal 80.0-94.0 [facility] ([place] Comment on above: Performed By: #### P REGU, UA, UAMICAO #### [facility] [address] [place], [place] [address] Platelet 286 10 3/mcL Normal 130-400 [facility] ([place] Comment on above: Performed By: #### P REGU, UA, UAMICAO #### [address] [place], [place] [address] Platelet mean volume (Bld) [Entitic vol] 11.0 fL High 7.4-10.4 [facility] ([place] Comment on above: Performed By: #### P REGU, UA, UAMICAO #### [address] [place], [place] [address] RBC 5.16 10 6/mcL Normal 4.20-5.40 [facility] ([place] Comment on above: Performed By: #### P REGU, UA, UAMICAO #### [address] [place], [place] [address] WBC 16.0 10 3/mcL High 4.6-10.8 [facility] ([place] Comment on above: Performed By: #### P REGU, UA, UAMICAO #### [address] [place], [place] [address] CMPon 02-24-2023 Albumin Level 4.0 G/dL Normal 3.5-5.0 [facility] ([place] Comment on above: Performed By: #### A ANDREAS, CMP, MDW, LIP, GFR, ADIFF, CBC ####[address] [place], [place] [address] Albumin/Globulin [Mass ratio] 1.1 {ratio} Normal 1.1-2.5 [facility] ([place] Comment on above: Performed By: #### A ANDREAS, CMP, MDW, LIP, GFR, ADIFF, CBC ####Nickolas [address] [place], [place] [address] ALP [Catalytic activity/Vol] 57 U/L Normal 40-135 [facility] ([place] Comment on above: Performed By: #### A ANDREAS, CMP, MDW, LIP, GFR, ADIFF, CBC ####[address] [place], [place] [address] ALT [Catalytic activity/Vol] 33 U/L Normal 14-59 [facility] ([place] Comment on above: Performed By: #### A ANDREAS, LUZ MARIA, MDW, LIP, GFR, ADIFF, CBC ####Nickolas [address] [place], [place] [address] AST [Catalytic activity/Vol] 37 U/L Normal 10-40 [facility] ([place] Comment on above: Performed By: #### A ANDREAS, CMP, MDW, LIP, GFR, ADIFF, CBC ####Nickolas [address] [place], [place] [address] Bili Total 0.7 mg/dL Normal 0.2-1.0 [facility] ([place] Comment on above: Result Comment: Use of this assay is not recommended for patients undergoing treatment with eltrombopag due to the potential for falsely elevated results. Performed By: #### A ANDREAS, LUZ MARIA, MDW, LIP, GFR, ADIFF, CBC ####Nickolas [address] [place], [place] [address] BUN/Creatinine Ratio 10 ratio Normal 7-27 [facility] ([place] Comment on above: Performed By: #### A ANDREAS, LUZ MARIA, MDW, LIP, GFR, ADIFF, CBC ####Nickolas [address] [place], [place] [address] Calcium [Mass/Vol] 9.6 mg/dL Normal 8.4-10.2 [facility] ([place] Comment on above: Performed By: #### A ANDREAS, CMP, MDW, LIP, GFR, ADIFF, CBC ####Nickolas [address] [place], [place] [address] Chloride [Moles/Vol] 100 mmol/L Normal 98-107 [facility] ([place] Comment on above: Performed By: #### A ANDREAS, CMP, MDW, LIP, GFR, ADIFF, CBC ####[facility] [place], [place] [address] CO2 [Moles/Vol] 27 mmol/L Normal 22-29 [facility] ([place]) Comment on above: Performed By: #### A ANDREAS, CMP, MDW, LIP, GFR, ADIFF, CBC ####[address] [place], [place] [address] Creatinine [Mass/Vol] 0.60 mg/dL Normal 0.55-1.02 [facility] ([place] Comment on above: Performed By: #### A ANDREAS, LUZ MARIA, MDW, LIP, GFR, ADIFF, CBC ####[address] [place], [place] [address] Electrolyte Balance 8.0 mEq/L Normal 4.0-15.0 [facility] ([place]) Comment on above: Performed By: #### A ANDREAS, CMP, MDW, LIP, GFR, ADIFF, CBC ####[address] [place], [place] [address] Globulin 3.6 G/dL Normal [facility] ([place] Comment on above: Performed By: #### A ANDREAS, LUZ MARIA, MDW, LIP, GFR, ADIFF, CBC ####[address] [place], [place] [address] Glucose [Mass/Vol] 389 mg/dL High 70-105 [facility] ([place] Comment on above: Performed By: #### A ANDREAS, LUZ MARIA, MDW, LIP, GFR, ADIFF, CBC ####[address] [place], [place] [address] Potassium [Moles/Vol] 4.3 mmol/L Normal 3.5-5.1 [facility] ([place] Comment on above: Performed By: #### A ANDREAS, LUZ MARIA, MDW, LIP, GFR, ADIFF, CBC ####[facility] [place], [place] [address] Sodium [Moles/Vol] 135 mmol/L Low 136-145 [facility] ([place] Comment on above: Performed By: #### A ANDREAS, LUZ MARIA, MDW, LIP, GFR, ADIFF, CBC ####[address] [place], [place] [address] Total Protein 7.6 G/dL Normal 6.4-8.2 [facility] ([place] Comment on above: Performed By: #### A ANDREAS, CMP, MDW, LIP, GFR, ADIFF, CBC ####[address] [place], [place] [address] Urea nitrogen [Mass/Vol] 6 mg/dL Low 7-18 [facility] ([place] Comment on above: Performed By: #### A LUZ MARIA JOHNS, DARRYL, LIP, GFR, ADIFF, CBC ####[address] [place], [place] [address] CT ABD/PELVIS W/ IV CONTRAST ONLYon 02-24-2023 CT ABD/PELVIS W/ IV CONTRAST ONLY ORIGINAL EXAMINATION: CT OF THE ABDOMEN AND PELVIS WITH CONTRAST 02/24/2023 8:37 pm TECHNIQUE: CT of the abdomen and pelvis was performed with the administration of intravenous contrast. Multiplanar reformatted images are provided for review. Automated exposure control, iterative reconstruction, and/or weight based adjustment of the mA/kV was utilized to reduce the radiation dose to as low as reasonably achievable. COMPARISON: 06/25/2020. HISTORY: ORDERING SYSTEM PROVIDED HISTORY: Reason for Exam: Left abdominal pain FINDINGS: Visualized lung bases are clear. Liver, pancreas and adrenal glands are unremarkable. Spleen is mildly enlarged measuring 14.5 cm in length. Gallbladder is surgically Kidneys are symmetric in size and enhancement without hydronephrosis or urolithiasis. Urinary bladder is unremarkable. Uterus is unremarkable. No adnexal mass. Small bowel, colon and appendix are normal in caliber. There is no definite bowel wall thickening, intraperitoneal free air or focal fluid collection. No abdominal or pelvic lymphadenopathy. Nonaneurysmal abdominal aorta. No acute fracture or destructive osseous lesion. IMPRESSION: No acute findings within abdomen or pelvis. Mild splenomegaly. I have personally reviewed the images of this examination and agree with the resident's finding and interpretation. Interpreted by: Nelly Sr MD Preliminary Report By: Nelson Morris Electronically signed By Nelly Sr MD Dictated Date: 02/24/2023 8:38:00 PM Prelim Date: 02/24/2023 8:45:26 PM Sign Date: 02/24/2023 9:17:35 PM Ordering Provider: LASHANDA PAYTON Normal [facility] ([place] LIPon 02-24-2023 Lipase Level 35 U/L Normal 16-77 [facility] ([place] Comment on above: Performed By: #### A ANDREAS, CMP, MDW, LIP, GFR, ADIFF, CBC ####[address] [address] PREGUon 02-24-2023 HCG ( test) Ql (U) Negative Normal [facility] ([place] Comment on above: Performed By: #### U A, PREGU #### [place] [address] test (u) int Not detected Invalid Interpretation Code [facility] ([place] Comment on above: Performed By: #### U A, PREGU #### [place] [address] UAon 02-24-2023 Color (U) Yellow Normal [facility] ([place]) Comment on above: Performed By: #### U A, PREGU #### [place] [address] Glucose (U) [Mass/Vol] mg/dL Abnormal Negative [facility] ([place] Comment on above: Performed By: #### U A, PREGU #### [address] [address] Ketones Ql (U) Negative Normal Negative [facility] ([place] Comment on above: Performed By: #### U A, PREGU #### [address] [address] UA Appear Clear Normal Clear [facility] [place] Comment on above: Performed By: #### U A, PREGU #### [address] [address] UA Blood Negative Normal Negative [facility] [place] Comment on above: Performed By: #### U A, PREGU #### [address] [address] UA Leuk Est Negative Normal Negative [facility] ([place] Comment on above: Performed By: #### U A, PREGU #### [place] [address] UA Nitrite Negative Normal Negative [facility] ([place] Comment on above: Performed By: #### U A, PREGU #### [address] [address] UA pH 5.0 Normal 5.0 - 8.0 [facility] ([place] Comment on above: Performed By: #### U A, PREGU #### [address] [address] UA Protein Negative Normal Negative [facility] [place] Comment on above: Performed By: #### U A, PREGU #### [place] [address] UA Spec Grav <=1.005 Abnormal 1.015-1.025 [facility] ([place] Comment on above: Performed By: #### U A, PREGU #### [place] [address] UA Specimen Type Clean Catch Normal [facility] [place] Comment on above: Performed By: #### U A, PREGU #### [place] [address] UA Urobilinogen 0.2 E.U./dL Normal 0.2-1.0 [facility] ([place] Comment on above: Performed By: #### U A, PREGU #### [place] [address] Urobilinogen (U) [Mass/Vol] Negative Normal Negative [facility] [place] Comment on above: Performed By: #### U A, PREGU #### [place] [address] Influenza virus A and B RNA and SARS-CoV-2 (COVID-19) N gene panel KATIANA+probe (Resp)on 10-14-2022 FLUAV RNA KATIANA+probe Ql (Unsp spec) Negative Negative for Influenza A by RT-PCR [facility] FLUBV RNA KATIANA+probe Ql (Unsp spec) Negative Negative for Influenza B by RT-PCR [facility] SARS-CoV-2 (COVID-19) RNA KATIANA+probe Ql (Resp) SARS-CoV-2 (Agent of COVID-19) Not Detected by RT-PCR or equivalent method. Not Detected [facility] LABORATORYOrdered By: Alycia Curry on 03-17-2022 HCG ( test) Ql Negative (03/17/22 5:47 PM) Invalid Interpretation Code AO Manual Urine SS test (u) int Not detected Invalid Interpretation Code AO Manual Urine SS LABORATORYOrdered By: Kaur Brown on 02-20-2022 TSH Qn 28.33 m[IU]/L Invalid Interpretation Code 0.36 - 3.74 mcIU/mL AO ADM SS LABORATORYOrdered By: Mandy Chacon on 10-17-2021 Blood Glucose Interventions Notify physician (10/17/21 11:44 AM) [facility] Work Phone: Blood Glucose Testing Reason Routine (10/17/21 11:44 AM) [facility] Work Phone: Blood Glucose, Capillary Out of Range Critical High (10/17/21 11:44 AM) [facility] Work Phone: Glucose [Mass/Vol] 340 mg/dL Invalid Interpretation Code 70 - 110 mg/dL [facility] Work Phone: Time of Stated Blood Glucose [id number] [facility] Work Phone: LABORATORYOrdered By: Natacha Zhao on 10-17-2021 Blood Glucose Interventions Notify physician (10/17/21 10:21 AM) [facility] Work Phone: Blood Glucose Testing Reason Routine (10/17/21 10:21 AM) [facility] Work Phone: Blood Glucose, Capillary Out of Range Critical High (10/17/21 10:21 AM) [facility] Work Phone: Glucose [Mass/Vol] 426 mg/dL Invalid Interpretation Code 70 - 110 mg/dL [facility] Work Phone: Time of Stated Blood Glucose [phone] [facility] Work Phone: Vital Signs Date Time Vital Sign Value Performing Clinician Facility 05-03-2024 11:34-0400 Body mass index (BMI) [Ratio] 43.13 kg/m2 Krislyn Aberegg PA Work Phone: [facility] 05-03-2024 11:34-0400 Body temperature 98.01 [degF] Krislyn Aberegg PA Work Phone: [facility] 05-03-2024 11:34-0400 Body weight 110.4 kg Krislyn Aberegg PA Work Phone: [facility] 05-03-2024 11:34-0400 Diastolic blood pressure 68 mm[Hg] Krislyn Aberegg PA Work Phone: [facility] 05-03-2024 11:34-0400 Heart rate 94 /min Krislyn Aberegg PA Work Phone: [facility] 05-03-2024 11:34-0400 Respiratory rate 16 /min Krislyn Aberegg PA Work Phone: [facility] 05-03-2024 11:34-0400 SaO2% (BldA) [Mass fraction] 99 % Krislyn Aberegg PA Work Phone: [facility] 05-03-2024 11:34-0400 Systolic blood pressure 122 mm[Hg] Krislyn Aberegg PA Work Phone: [facility] 04-22-2024 08:47-0400 Body mass index (BMI) [Ratio] 43.16 kg/m2 Ángel Moomaw METAL FILER.HEREDITARY CANCER PROGRAM COORDINATOR Work Phone: [facility] 04-22-2024 08:47-0400 Body temperature 97.59 [degF] Ángel Moomaw METAL FILER.HEREDITARY CANCER PROGRAM COORDINATOR Work Phone: [facility] 04-22-2024 08:47-0400 Body weight 110.5 kg Ángel Moomaw METAL FILER.HEREDITARY CANCER PROGRAM COORDINATOR Work Phone: [facility] 04-22-2024 08:47-0400 Diastolic blood pressure 70 mm[Hg] Ángel Moomaw METAL FILER.HEREDITARY CANCER PROGRAM COORDINATOR Work Phone: [facility] 04-22-2024 08:47-0400 Heart rate 90 /min Ángel Moomaw METAL FILER.HEREDITARY CANCER PROGRAM COORDINATOR Work Phone: [facility] 04-22-2024 08:47-0400 Respiratory rate 16 /min Ángel Moomaw METAL FILER.HEREDITARY CANCER PROGRAM COORDINATOR Work Phone: [facility] 04-22-2024 08:47-0400 SaO2% (BldA) [Mass fraction] 99 % Ángel Moomaw METAL FILER.HEREDITARY CANCER PROGRAM COORDINATOR Work Phone: [facility] 04-22-2024 08:47-0400 Systolic blood pressure 104 mm[Hg] Ángel Moomaw METAL FILER.HEREDITARY CANCER PROGRAM COORDINATOR Work Phone: [facility] 02-19-2024 14:53-0400 Body mass index (BMI) [Ratio] 42.07 kg/m2 Nolvia Man MD Work Phone: [facility] 02-19-2024 14:53-0400 Body weight 104.33 kg Nolvia Man MD Work Phone: [facility] 02-19-2024 14:53-0400 Diastolic blood pressure 62 mm[Hg] Nolvia Man MD Work Phone: [facility] 02-19-2024 14:53-0400 Systolic blood pressure 112 mm[Hg] Nolvia Man MD Work Phone: [facility] 02-16-2024 10:07-0400 Body mass index (BMI) [Ratio] 41.77 kg/m2 Humphrey Frye MD Work Phone: [facility] 02-16-2024 10:07-0400 Body weight 103.6 kg Humphrey Frye MD Work Phone: [facility] 02-16-2024 10:07-0400 Diastolic blood pressure 60 mm[Hg] Humphrey Frye MD Work Phone: [facility] 02-16-2024 10:07-0400 Systolic blood pressure 100 mm[Hg] Humphrey Frye MD Work Phone: [facility] 02-05-2024 11:23-0400 Body mass index (BMI) [Ratio] 43.15 kg/m2 Temitope Lima METAL FILER.HEREDITARY CANCER PROGRAM COORDINATOR Work Phone: [facility] 02-05-2024 11:23-0400 Body temperature 97.59 [degF] Temitope Lima METAL FILER.HEREDITARY CANCER PROGRAM COORDINATOR Work Phone: [facility] 02-05-2024 [id number] Body weight 107 kg Temitope Lima METAL FILER.HEREDITARY CANCER PROGRAM COORDINATOR Work Phone: [facility] 02-05-2024 11:23-0400 Diastolic blood pressure 80 mm[Hg] Temitope Ilma METAL FILER.HEREDITARY CANCER PROGRAM COORDINATOR Work Phone: [facility] 02-05-2024 11:23-0400 Heart rate 105 /min Temitope Lima METAL FILER.HEREDITARY CANCER PROGRAM COORDINATOR Work Phone: [facility] 02-05-2024 11:23-0400 Respiratory rate 18 /min Temitope Lima METAL FILER.HEREDITARY CANCER PROGRAM COORDINATOR Work Phone: [facility] 02-05-2024 11:23-0400 SaO2% (BldA) [Mass fraction] 100 % Temitope Lima METAL FILER.HEREDITARY CANCER PROGRAM COORDINATOR Work Phone: [facility] 02-05-2024 11:23-0400 Systolic blood pressure 117 mm[Hg] Temitope Lima METAL FILER.HEREDITARY CANCER PROGRAM COORDINATOR Work Phone: [facility] 01-12-2024 [id number] Body weight 114.31 kg Humphrey Frye MD Work Phone: [facility] 01-12-2024 10:09-0400 Diastolic blood pressure 76 mm[Hg] Humphrey Frye MD Work Phone: [facility] 01-12-2024 10:09-0400 Systolic blood pressure 110 mm[Hg] Humphrey Frye MD Work Phone: [facility] 12-29-2023 10:31-0400 Body weight 118.57 kg Geovani Velasco MD Work Phone: [facility] 12-29-2023 10:31-0400 Diastolic blood pressure 78 mm[Hg] Geovani Velasco MD Work Phone: [facility] 12-29-2023 10:31-0400 Systolic blood pressure 112 mm[Hg] Geovani Velasco MD Work Phone: [facility] 12-28-2023 10:32-0400 Body weight 118.84 kg Juan David De Leon MD Work Phone: [facility] 12-28-2023 10:32-0400 Diastolic blood pressure 74 mm[Hg] Juan David De Leon MD Work Phone: [facility] 12-28-2023 10:32-0400 Systolic blood pressure 114 mm[Hg] Juan David De Leon MD Work Phone: [facility] 12-25-2023 10:47-0400 Body weight 117.75 kg Nolvia Man MD Work Phone: [facility] 12-25-2023 10:47-0400 Diastolic blood pressure 81 mm[Hg] Nolvia Man MD Work Phone: [facility] 12-25-2023 10:47-0400 Systolic blood pressure 119 mm[Hg] Nolvia Man MD Work Phone: [facility] 12-22-2023 13:34-0400 Body weight 117.12 kg Nolvia Man MD Work Phone: [facility] 12-22-2023 13:34-0400 Diastolic blood pressure 78 mm[Hg] Nolvia Man MD Work Phone: [facility] 12-22-2023 13:34-0400 Systolic blood pressure 132 mm[Hg] Nolvia Man MD Work Phone: [facility] 12-18-2023 10:46-0400 Body weight 115.21 kg Humphrey Frye MD Work Phone: [facility] 12-03-2023 10:12-0500 Body weight 112.04 kg Mey Buck MD Work Phone: [facility] 12-03-2023 10:12-0500 Diastolic blood pressure 70 mm[Hg] Mey Buck MD Work Phone: [facility] 12-03-2023 10:12-0500 Systolic blood pressure 110 mm[Hg] Mey Buck MD Work Phone: [facility] 11-18-2023 10:23-0500 Body weight 111.58 kg Mey Buck MD Work Phone: [facility] 11-18-2023 10:23-0500 Diastolic blood pressure 62 mm[Hg] Mey Buck MD Work Phone: [facility] 11-18-2023 10:23-0500 Systolic blood pressure 110 mm[Hg] Mey Buck MD Work Phone: [facility] 2023 08:16-0500 Body weight 109.68 kg Dory Chou MD Work Phone: [facility] 2023 08:16-0500 Diastolic blood pressure 84 mm[Hg] Dory Chou MD Work Phone: [facility] 2023 08:16-0500 Systolic blood pressure 110 mm[Hg] Dory Chou MD Work Phone: [facility] 08-30-2023 17:33-0500 Blood Pressure Cuff Size MUSA SOLIS MD [facility] 08-30-2023 17:33-0500 Blood Pressure Location MUSA SOLIS MD [facility] 08-30-2023 17:33-0500 Blood Pressure Method MUSA SOLIS MD [facility] 08-30-2023 17:33-0500 Body temperature 98.78 [degF] MUSA SOLIS MD [facility] 08-30-2023 17:33-0500 Diastolic Blood Pressure Non-Invasive 86 mm[Hg] MUSA SOLIS MD [facility] 08-30-2023 17:33-0500 Heart rate 113 /min MUSA SOLIS MD [facility] 08-30-2023 17:33-0500 Respiratory rate 16 /min MUSA SOLIS MD [facility] 08-30-2023 17:33-0500 Systolic Blood Pressure Non-Invasive 128 mm[Hg] MUSA SOLIS MD [facility] 08-25-2023 08:54-0500 Body weight 108.86 kg Temitope Roblero METAL FILER.CNM Work Phone: [facility] 08-25-2023 08:54-0500 Diastolic blood pressure 74 mm[Hg] Temitope Roblero METAL FILER.CNM Work Phone: [facility] 08-25-2023 08:54-0500 Systolic blood pressure 116 mm[Hg] Temitope Roblero METAL FILER.CNM Work Phone: [facility] 08-13-2023 12:28-0500 Body temperature 97.59 [degF] Brijesh Navarro METAL FILER.HEREDITARY CANCER PROGRAM COORDINATOR Work Phone: [facility] 08-13-2023 12:28-0500 Body weight 109.68 kg Brijesh Navarro METAL FILER.HEREDITARY CANCER PROGRAM COORDINATOR Work Phone: [facility] 08-13-2023 12:28-0500 Diastolic blood pressure 76 mm[Hg] Brijesh Navarro METAL FILER.HEREDITARY CANCER PROGRAM COORDINATOR Work Phone: [facility] 08-13-2023 12:28-0500 Heart rate 101 /min Brijesh Navarro METAL FILER.HEREDITARY CANCER PROGRAM COORDINATOR Work Phone: [facility] 08-13-2023 12:28-0500 Respiratory rate 16 /min Brijesh Navarro METAL FILER.HEREDITARY CANCER PROGRAM COORDINATOR Work Phone: [facility] 08-13-2023 12:28-0500 SaO2% (BldA) [Mass fraction] 96 % Brijesh Navarro METAL FILER.HEREDITARY CANCER PROGRAM COORDINATOR Work Phone: [facility] 08-13-2023 12:28-0500 Systolic blood pressure 120 mm[Hg] Brijesh Navarro METAL FILER.HEREDITARY CANCER PROGRAM COORDINATOR Work Phone: [facility] 08-04-2023 13:38-0400 Body weight 108.86 kg Juan David De Leon MD Work Phone: [facility] 08-04-2023 13:38-0400 Diastolic blood pressure 72 mm[Hg] Juan David De Leon MD Work Phone: [facility] 08-04-2023 13:38-0400 Systolic blood pressure 110 mm[Hg] Juan David De Leon MD Work Phone: [facility] 07-27-2023 09:28-0400 Body height [address] [facility] 07-27-2023 09:28-0400 Body weight 108.[address] [facility] 07-14-2023 08:06-0400 Body weight 108.86 kg Dory Chou MD Work Phone: [facility] 07-14-2023 08:06-0400 Diastolic blood pressure 64 mm[Hg] Dory Chou MD Work Phone: [facility] 07-14-2023 08:06-0400 Systolic blood pressure 112 mm[Hg] Dory Chou MD Work Phone: [facility] 06-15-2023 18:22-0400 Body temperature 98.6 [degF] Rolanda Frye METAL FILER.HEREDITARY CANCER PROGRAM COORDINATOR Work Phone: [facility] 06-15-2023 18:22-0400 Body weight 105.87 kg Rolanda Frye JASIEL.HEREDITARY CANCER PROGRAM COORDINATOR Work Phone: [facility] 06-15-2023 18:22-0400 Diastolic blood pressure 74 mm[Hg] Rolanda Frye JASIEL.HEREDITARY CANCER PROGRAM COORDINATOR Work Phone: [facility] 06-15-2023 18:22-0400 Heart rate 110 /min Rolanda Frye JASIEL.HEREDITARY CANCER PROGRAM COORDINATOR Work Phone: [facility] 06-15-2023 18:22-0400 Respiratory rate 21 /min Rolanda Frye METAL FILER.HEREDITARY CANCER PROGRAM COORDINATOR Work Phone: [facility] 06-15-2023 18:22-0400 SaO2% (BldA) [Mass fraction] 97 % Rolanda Frye JASIEL.HEREDITARY CANCER PROGRAM COORDINATOR Work Phone: [facility] 06-15-2023 18:22-0400 Systolic blood pressure 110 mm[Hg] Rolanda Frye JASIEL.HEREDITARY CANCER PROGRAM COORDINATOR Work Phone: [facility] 05-29-2023 01:05-0400 Diastolic Blood Pressure Non-Invasive 75 1 ROBERTA SALINAS MD [facility] 05-29-2023 01:05-0400 Heart rate 95 /min ROBERTA SALINAS MD [facility] 05-29-2023 01:05-0400 Respiratory rate 16 /min ROBERTA SALINAS MD [facility] 05-29-2023 01:05-0400 Systolic Blood Pressure Non-Invasive 122 1 ROBERTA SALINAS MD [facility] 05-28-2023 20:56-0400 Body height 157.5 cm ROBERTA SALINAS MD [facility] 05-28-2023 20:56-0400 Body temperature 99.14 [degF] ROBERTA SALINAS MD [facility] 05-28-2023 20:56-0400 Body weight 106.8 kg ROBERTA SALINAS MD [facility] 05-28-2023 20:56-0400 Diastolic Blood Pressure Non-Invasive 81 1 ROBERTA SALINAS MD [facility] 05-28-2023 20:56-0400 Heart rate 112 /min ROBERTA SALINAS MD [facility] 05-28-2023 20:56-0400 Respiratory rate 20 /min ROBERTA SALINAS MD [facility] 05-28-2023 20:56-0400 Systolic Blood Pressure Non-Invasive 127 1 ROBERTA SALINAS MD [facility] 05-06-2023 12:29-0400 Body temperature 98.91 [degF] Brijesh Navarro METAL FILER.HEREDITARY CANCER PROGRAM COORDINATOR Work Phone: [facility] 05-06-2023 12:29-0400 Body weight 105.96 kg Brijesh Navarro METAL FILER.HEREDITARY CANCER PROGRAM COORDINATOR Work Phone: [facility] 05-06-2023 12:29-0400 Diastolic blood pressure 74 mm[Hg] Brijesh Navarro METAL FILER.HEREDITARY CANCER PROGRAM COORDINATOR Work Phone: [facility] 05-06-2023 12:29-0400 Heart rate 98 /min Brijesh Navarro METAL FILER.HEREDITARY CANCER PROGRAM COORDINATOR Work Phone: [facility] 05-06-2023 12:29-0400 Respiratory rate 16 /min Brijesh Navarro METAL FILER.HEREDITARY CANCER PROGRAM COORDINATOR Work Phone: [facility] 05-06-2023 12:29-0400 SaO2% (BldA) [Mass fraction] 98 % Brijesh Navarro METAL FILER.HEREDITARY CANCER PROGRAM COORDINATOR Work Phone: [facility] 05-06-2023 12:29-0400 Systolic blood pressure 110 mm[Hg] Brijesh Navarro METAL FILER.HEREDITARY CANCER PROGRAM COORDINATOR Work Phone: [facility] 03-31-2023 14:05-0400 Body temperature 98.1 [degF] Brijesh Navarro METAL FILER.HEREDITARY CANCER PROGRAM COORDINATOR Work Phone: [facility] 03-31-2023 14:05-0400 Body weight 105.69 kg Brijesh Navarro METAL FILER.HEREDITARY CANCER PROGRAM COORDINATOR Work Phone: [facility] 03-31-2023 14:05-0400 Diastolic blood pressure 68 mm[Hg] Brijesh Navarro METAL FILER.HEREDITARY CANCER PROGRAM COORDINATOR Work Phone: [facility] 03-31-2023 14:05-0400 Heart rate 90 /min Brijesh Navarro METAL FILER.HEREDITARY CANCER PROGRAM COORDINATOR Work Phone: [facility] 03-31-2023 14:05-0400 Respiratory rate 16 /min Brijesh Navarro METAL FILER.HEREDITARY CANCER PROGRAM COORDINATOR Work Phone: [facility] 03-31-2023 14:05-0400 SaO2% (BldA) [Mass fraction] 98 % Brijesh Navarro METAL FILER.HEREDITARY CANCER PROGRAM COORDINATOR Work Phone: [facility] 03-31-2023 14:05-0400 Systolic blood pressure 102 mm[Hg] Brijesh Navarro METAL FILER.HEREDITARY CANCER PROGRAM COORDINATOR Work Phone: [facility] 03-27-2023 15:13-0400 Body temperature 98.2 [degF] Ceci Athy PA-C Work Phone: [facility] 03-27-2023 15:13-0400 Body weight 106.32 kg Ceci Athy PA-C Work Phone: [facility] 03-27-2023 15:13-0400 Diastolic blood pressure 78 mm[Hg] Ceci Athy PA-C Work Phone: [facility] 03-27-2023 15:13-0400 Heart rate 91 /min Ceci Athy PA-C Work Phone: [facility] 03-27-2023 15:13-0400 Respiratory rate 16 /min Ceci Athy PA-C Work Phone: [facility] 03-27-2023 15:13-0400 SaO2% (BldA) [Mass fraction] 98 % Ceci Motley PA-C Work Phone: [facility] 03-27-2023 15:13-0400 Systolic blood pressure 110 mm[Hg] Ceci Motley PA-C Work Phone: [facility] 03-21-2023 21:59-0400 Diastolic Blood Pressure Non-Invasive 66 1 MUSA SOLIS MD [facility] 03-21-2023 21:59-0400 Heart rate 80 /min MUSA SOLIS MD [facility] 03-21-2023 21:59-0400 Respiratory rate 18 /min MUSA SOLIS MD [facility] 03-21-2023 21:59-0400 Systolic Blood Pressure Non-Invasive 120 1 MUSA SOLIS MD [facility] 03-21-2023 19:57-0400 Body temperature 98.78 [degF] MUSA SOLIS MD [facility] 03-21-2023 19:57-0400 Body weight 107.2 kg MUSA SOLIS MD [facility] 03-21-2023 19:57-0400 Diastolic Blood Pressure Non-Invasive 76 1 MUSA SOLIS MD [facility] 03-21-2023 19:57-0400 Heart rate 92 /min MUSA SOLIS MD [facility] 03-21-2023 19:57-0400 Respiratory rate 16 /min MUSA SOLIS MD [facility] 03-21-2023 19:57-0400 Systolic Blood Pressure Non-Invasive 115 1 MUSA SOLIS MD [facility] 03-13-2023 16:08-0400 Body temperature 98.8 [degF] Krislyn Aberegg PA Work Phone: [facility] 03-13-2023 16:08-0400 Body weight 106.14 kg Krislyn Aberegg PA Work Phone: [facility] 03-13-2023 16:08-0400 Diastolic blood pressure 70 mm[Hg] Krislyn Aberegg PA Work Phone: [facility] 03-13-2023 16:08-0400 Heart rate 104 /min Krislyn Aberegg PA Work Phone: [facility] 03-13-2023 16:08-0400 Respiratory rate 18 /min Krislyn Aberegg PA Work Phone: [facility] 03-13-2023 16:08-0400 SaO2% (BldA) [Mass fraction] 98 % Krislyn Aberegg PA Work Phone: [facility] 03-13-2023 16:08-0400 Systolic blood pressure 110 mm[Hg] Krislyn Aberegg PA Work Phone: [facility] 11-19-2022 09:21-0500 Body temperature 98.1 [degF] Krislyn Aberegg PA Work Phone: [facility] 11-19-2022 09:21-0500 Body weight 109.32 kg Krislyn Aberegg PA Work Phone: [facility] 11-19-2022 09:21-0500 Diastolic blood pressure 76 mm[Hg] Krislyn Aberegg PA Work Phone: [facility] 11-19-2022 09:21-0500 Heart rate 109 /min Krislyn Aberegg PA Work Phone: [facility] 11-19-2022 09:21-0500 Respiratory rate 18 /min Krislyn Aberegg PA Work Phone: [facility] 11-19-2022 09:21-0500 SaO2% (BldA) [Mass fraction] 98 % Krislyn Aberegg PA Work Phone: [facility] 11-19-2022 09:21-0500 Systolic blood pressure 120 mm[Hg] Krislyn Aberegg PA Work Phone: [facility] 10-13-2022 14:47-0500 Body temperature 97.5 [degF] Inessa Bogner PA-C Work Phone: [facility] 10-13-2022 14:47-0500 Body weight 110.95 kg Inessa Bogner PA-C Work Phone: [facility] 10-13-2022 14:47-0500 Diastolic blood pressure 76 mm[Hg] Inessa Bogner PA-C Work Phone: [facility] 10-13-2022 14:47-0500 Heart rate 92 /min Inessa Bogner PA-C Work Phone: [facility] 10-13-2022 14:47-0500 Respiratory rate 21 /min Inessa Bogner PA-C Work Phone: [facility] 10-13-2022 14:47-0500 SaO2% (BldA) [Mass fraction] 99 % Inessa Bogner PA-C Work Phone: [facility] 10-13-2022 14:47-0500 Systolic blood pressure 108 mm[Hg] Inessa Bogner PA-C Work Phone: [facility] 06-18-2022 18:29-0400 Body height 157 cm MERRITT REICHFIELD DO [facility] 06-18-2022 18:29-0400 Body temperature 96.8 [degF] [facility] 06-18-2022 18:29-0400 Body weight 119 kg MERRITT REICHFIELD DO [facility] 06-18-2022 18:29-0400 Diastolic blood pressure 79 mm[Hg] MERRITT REICHFIELD DO [facility] 06-18-2022 18:29-0400 Heart rate 108 /min MERRITT REICHFIELD DO [facility] 06-18-2022 18:29-0400 Respiratory rate 16 /min MERRITT REICHFIELD DO [facility] 06-18-2022 18:29-0400 Systolic blood pressure 119 mm[Hg] MERRITT REICHFIELD DO [facility] 03-17-2022 18:41-0400 Diastolic blood pressure 70 mm[Hg] LENNOX ALDRICH MD [facility] 03-17-2022 18:41-0400 Heart rate 86 /min LENNOX ALDRICH MD [facility] 03-17-2022 18:41-0400 Mean blood pressure 83 mm[Hg] LENNOX ALDRICH MD [facility] 03-17-2022 18:41-0400 Respiratory rate 18 /min LENNOX ALDRICH MD [facility] 03-17-2022 18:41-0400 Systolic blood pressure 108 mm[Hg] LENNOX ALDRICH MD [facility] 03-17-2022 16:38-0400 Body temperature 98.42 [degF] LENNOX ALDRICH MD [facility] 03-17-2022 16:38-0400 Body weight 120 kg LENNOX ALDRICH MD [facility] 03-17-2022 16:38-0400 Diastolic blood pressure 75 mm[Hg] LENNOX ALDRICH MD [facility] 03-17-2022 16:38-0400 Heart rate 107 /min LENNOX ALDRICH MD [facility] 03-17-2022 16:38-0400 Respiratory rate 18 /min LENNOX ALDRICH MD [facility] 03-17-2022 16:38-0400 Systolic blood pressure 119 mm[Hg] LENNOX ALDRICH MD [facility] 10-17-2021 11:44-0500 Diastolic blood pressure 76 mm[Hg] SANDRA SOTO MD [facility] 10-17-2021 11:44-0500 Heart rate 96 /min SANDRA SOTO MD [facility] 10-17-2021 11:44-0500 Respiratory rate 18 /min SANDRA SOTO MD [facility] 10-17-2021 11:44-0500 Systolic blood pressure 121 mm[Hg] SANDRA SOTO MD [facility] 10-17-2021 09:52-0500 Body temperature 98.78 [degF] SANDRA SOTO MD [facility] 10-17-2021 09:52-0500 Body weight 122.7 kg SANDRA SOTO MD [facility] 10-17-2021 09:52-0500 Diastolic blood pressure 84 mm[Hg] SANDRA SOTO MD [facility] 10-17-2021 09:52-0500 Heart rate 98 /min SANDRA SOTO MD [facility] 10-17-2021 09:52-0500 Respiratory rate 18 /min SANDRA SOTO MD [facility] 10-17-2021 09:52-0500 Systolic blood pressure 127 mm[Hg] SANDRA SOTO MD [facility] Encounters Encounter Date Encounter Type Care Provider Facility Start: 06-02-2024 End: 06-02-2024 ambulatory Juan David De Leon MD Work Phone: OB/Gynecology Start: 06-02-2024 End: 06-02-2024 E-mail encounter from caregiver Belinda Garrido HEREDITARY CANCER PROGRAM COORDINATOR Work Phone: Endocrinology Start: 06-02-2024 End: 06-02-2024 Patient encounter procedure Juan David De Leon MD Work Phone: OB/Gynecology Comment on above: Missed appointment results Start: 05-16-2024 End: 05-16-2024 ambulatory BELINDA GARRIDO Facility:[facility] Start: 05-03-2024 End: 05-03-2024 ambulatory SELF Facility:[facility] Start: 05-03-2024 End: 05-03-2024 Patient encounter procedure Prem DELONG Work Phone: [facility] Comment on above: Acute otitis media, right (Primary Dx); Sinus congestion Start: 04-22-2024 End: 04-22-2024 ambulatory JUAN DAVID DE LEON Facility:[facility] Start: 04-22-2024 End: 04-22-2024 Patient encounter procedure Ángel Banda METAL FILER.HEREDITARY CANCER PROGRAM COORDINATOR Work Phone: [facility] Comment on above: Encounter for post s urgical wound check (Primary Dx) Start: 04-02-2024 Telephone encounter Jabier gloriat DO Work Phone: Endocrinology & [facility] Comment on above: Appointment Start: 03-21-2024 End: 03-21-2024 ambulatory Belinda Garrido METAL FILER.HEREDITARY CANCER PROGRAM COORDINATOR Work Phone: Endocrinology Start: 03-21-2024 End: 03-21-2024 Patient encounter procedure Belinda Garrido APRN.HEREDITARY CANCER PROGRAM COORDINATOR Work Phone: Endocrinology Comment on above: Type 2 diabetes samir itus with hyperglycemia, with long-term current use of insulin (HCC) (Primary Dx); Acquired hypothyroidism Missed appointment Start: 03-21-2024 End: 03-21-2024 Telemedicine consultation with patient Belinda Garrido APRN.HEREDITARY CANCER PROGRAM COORDINATOR Work Phone: Endocrinology Start: 02-23-2024 Telephone encounter Jabire gloriat DO Work Phone: Endocrinology Start: 02-23-2024 Emergency department patient visit ANA KILPATRICK Facility:[facility] Start: 02-22-2024 Telephone encounter Nolvia tan MD Work Phone: OB/Gynecology Comment on above: Consult (/) Start: 02-19-2024 End: 02-19-2024 ambulatory NOLVIA MAN Facility:[facility] Start: 02-19-2024 End: 02-19-2024 Office outpatient visit 15 minutes Nolvia Man MD Work Phone: OB/Gynecology Comment on above: Poorly controlled di abetes mellitus (HCC) (Primary Dx); Non-healing surgical wound, subsequent encounter Start: 02-19-2024 Telephone encounter Mey Buck MD Work Phone: OB/Gynecology Comment on above: Wound Care Start: 02-18-2024 Refill Humphrey Blake Work Phone: OB/Gynecology Comment on above: Refill Request Start: 02-16-2024 End: 02-16-2024 ambulatory HUMPHREY FRYE Facility:[facility] Start: 02-16-2024 End: 02-16-2024 Patient encounter procedure Humphrey Frye MD Work Phone: OB/Gynecology Comment on above: care and examination (Primary Dx) Start: 02-05-2024 End: 02-05-2024 ambulatory JUAN DAVIDCHLOE DE LEON Facility:[facility] Start: 02-05-2024 End: 02-05-2024 Patient encounter procedure Temitopevalencia Lima APRN.HEREDITARY CANCER PROGRAM COORDINATOR Work Phone: [facility] Comment on above: Disorder of blood gl ucose (Primary Dx) Start: 02-04-2024 Telephone encounter Jabier wallace DO Work Phone: Endocrinology Start: 02-03-2024 End: 02-03-2024 ambulatory GEORGES PALMA Facility:[facility] Start: 02-02-2024 ambulatory Jabier Weems DO Work Phone: Endocrinology Start: 02-02-2024 Patient encounter procedure Jabier Weems DO Work Phone: Endocrinology Comment on above: Missed appointment Refill Request Start: 01-21-2024 Encounter Pietro moran HEREDITARY CANCER PROGRAM COORDINATOR Work Phone: [facility] [id number] Start: 01-13-2024 Telephone encounter Landon Kessler Comment on above: Social Work Services Start: 01-12-2024 End: 01-12-2024 ambulatory HUMPHREY FRYE Facility:[facility] Start: 01-12-2024 End: 01-12-2024 Patient encounter procedure Humphrey Frye MD Work Phone: OB/Gynecology Comment on above: care and examination immediately after delivery (Primary Dx); Other depression Start: 01-07-2024 Telephone encounter Jabier wallace DO Work Phone: Endocrinology Start: 01-05-2024 Chart abstracting Theresa samuel [facility] Work Phone: IT MAIN WALKER Start: 01-04-2024 End: 01-08-2024 Evaluation and management of inpatient CARLOS C PERNI Facility:[facility] Start: 01-04-2024 End: 01-04-2024 ambulatory MAYME Smith GABBY Facility:[facility] Comment on above: Directions Start: 01-04-2024 E-mail encounter fro m caregiver Palomo Isaac RN [facility] Start: 01-04-2024 Telephone encounter Geovani hernández MD Work Phone: CARD GERONTOLOGICAL NURSE PRACTITIONER [facility] MA[facility] Start: 01-04-2024 End: 01-04-2024 ambulatory MEY MARKOST BUCK Facility:[facility] Start: 01-04-2024 End: 01-04-2024 Patient encounter procedure Us Rm2 Obgyn [facility] Ag Baron Work Phone: [facility] Maternal Medicine Comment on above: with type 2 diabetes mellitus in second trimester (Primary Dx); Obesity affecting in third trimester, unspecified obesity type Start: 01-01-2024 End: 01-01-2024 ambulatory JUAN DAVID DE LEON Facility:[facility] Start: 01-01-2024 End: 01-01-2024 ambulatory MEY NEYCATARINOT BUCK Facility:[facility] Start: 12-29-2023 End: 12-29-2023 ambulatory Palomo Isaac RN [facility] Start: 12-29-2023 Coordination of care plan Palomo Isaac RN [facility] Maternal Medicine Comment on above: Care Plan (Car e Coordination) Start: 12-29-2023 End: 12-29-2023 Patient encounter procedure Geovani Velasco MD Work Phone: Maternal Medicine Comment on above: with type 2 diabetes mellitus in second trimester (Primary Dx); Hypothyroidism affecting in third trimester; Anomaly of heart of fetus affecting , antepartum, single or unspecified fetus; Supervision of high risk in third trimester Start: 12-28-2023 End: 12-28-2023 ambulatory JUAN DAVID DE LEON Facility:[facility] Start: 12-28-2023 End: 12-28-2023 Patient encounter procedure Juan David De Leon MD Work Phone: OB/Gynecology Comment on above: Poorly controlled di abetes mellitus (HCC) (Primary Dx); Herpes simplex vulvovaginitis; 33 weeks gestation of ; Supervision of high risk in third trimester Start: 12-25-2023 Telephone encounter Jabier wallace DO Work Phone: Endocrinology Comment on above: BG Log Start: 12-25-2023 End: 12-25-2023 Patient encounter procedure Regional Guide Josie Ultrasound Work Phone: OB/Gynecology Comment on above: Poorly controlled di abetes mellitus (HCC); High-risk in second trimester Start: 12-25-2023 End: 12-25-2023 ambulatory JUAN DAVID DE LEON Facility:[facility] Start: 12-25-2023 End: 12-25-2023 Office outpatient visit 25 minutes Nolvia Man MD Work Phone: OB/Gynecology Comment on above: Poorly controlled di abetes mellitus (HCC) (Primary Dx); 32 weeks gestation of ; Obesity in Start: 12-22-2023 Telephone encounter Nolvia tan MD Work Phone: OB/Gynecology Comment on above: HSV Outbreak Start: 12-22-2023 End: 12-22-2023 ambulatory TRUPTI ESTEBAN Facility:[facility] Start: 12-22-2023 End: 12-22-2023 Patient encounter procedure Regional Guide [facility] Work Phone: OB/Gynecology Comment on above: with type 2 diabetes mellitus in third trimester (Primary Dx); 32 weeks gestation of ; Obesity in Poorly controlled di abetes mellitus (HCC) (Primary Dx); with type 2 diabetes mellitus in second trimester; High-risk in second trimester Start: 12-18-2023 Telephone encounter Landon GUAN OB/Gynecology Start: 12-18-2023 End: 12-18-2023 ambulatory MEY BUCK Facility:[facility] Start: 12-18-2023 End: 12-18-2023 Patient encounter procedure Humphrey Frye MD Work Phone: OB/Gynecology Comment on above: 31 weeks gestation o f (Primary Dx); Poorly controlled diabetes mellitus (HCC) Start: 12-15-2023 End: 12-15-2023 ambulatory MEY BUCK Facility:[facility] Start: 12-15-2023 End: 12-15-2023 Patient encounter procedure Trupti Esteban MD Work Phone: Maternal Medicine Comment on above: with type 2 diabetes mellitus in second trimester (Primary Dx); Obesity affecting in third trimester, unspecified obesity type; 31 weeks gestation of ; Encounter for ultrasound to assess growth; Polyhydramnios in first trimester, single or unspecified fetus; Anomaly of heart of fetus affecting , antepartum, single or unspecified fetus; Hypothyroidism, unspecified type Start: 12-10-2023 Patient Msg Landon Andre METAL WINDOW FRAME MAKER Na vigation Comment on above: Social Work Check In Start: 12-08-2023 ambulatory Jabier Weems DO Work Phone: Endocrinology Comment on above: after visit summary Start: 12-08-2023 E-mail encounter fro m caregiver Jabier Weems DO Work Phone: [facility] Start: 12-07-2023 End: 12-07-2023 ambulatory Jabier Katest DO Work Phone: Endocrinology Comment on above: Pre-existing type 2 diabetes mellitus in in third trimester (Primary Dx); Thyroid dysfunction in in third trimester; High-risk , third trimester Start: 12-07-2023 End: 12-07-2023 Telemedicine consultation with patient Jabier Ktaest DO Work Phone: [facility] Start: 12-04-2023 Telephone encounter Chemical Equipment Controller RN Maternal Medicine Comment on above: Chemical Equipment Controller - O ther (PRAF) Appointment reminder call Start: 12-03-2023 End: 12-03-2023 ambulatory Jabier Weems DO Work Phone: [facility] Start: 12-03-2023 End: 12-03-2023 Patient encounter procedure Jabier Weems DO Work Phone: Endocrinology Comment on above: Appointment with type 2 diabetes mellitus in second trimester (Primary Dx); High-risk in second trimester; High-risk in first trimester; Elevated TSH; 29 weeks gestation of Start: 12-03-2023 Telephone encounter Mey Buck MD Work Phone: OB/Gynecology Comment on above: Section Start: 12-02-2023 Refill Jabier Weems DO Work Phone: Endocrinology Comment on above: Med Change Request Start: 12-01-2023 Telephone encounter Palomo Isaac RN [facility] Maternal Medicine Comment on above: Appointment Start: 11-30-2023 End: 11-30-2023 ambulatory TYRELL PIERRE Facility:[facility] Start: 11-20-2023 ambulatory [facility] Provider Endocrinol dany Comment on above: Insulin NPH Start: 11-20-2023 E-mail encounter fro m caregiver [facility] Provider [facility] Start: 11-20-2023 Telephone encounter Juan David De Leon MD Work Phone: OB/Gynecology Comment on above: Orders; Appointment Start: 11-19-2023 Telephone encounter Jabier wallace DO Work Phone: Endocrinology Comment on above: Blood Sugar logs Start: 11-18-2023 End: 11-18-2023 ambulatory MEY BUCK Facility:[facility] Start: 11-18-2023 End: 11-18-2023 Patient encounter procedure Mey Buck MD Work Phone: OB/Gynecology Comment on above: Poorly controlled di abetes mellitus (HCC) (Primary Dx); Obesity in ; High-risk in second trimester; with history of section, antepartum; 27 weeks gestation of ; Herpes simplex vulvovaginitis Suspected problem wi th growth not found (Primary Dx); with history of section, antepartum; Insulin controlled gestational diabetes mellitus (GDM) in second trimester; Hypothyroidism affecting in second trimester; High-risk in first trimester; Maternal obesity syndrome in second trimester; BMI 40.0-44.9, adult (HCC); 27 weeks gestation of Start: 11-10-2023 End: 11-10-2023 ambulatory JUAN DAVID DE LEON Facility:[facility] Start: 11-05-2023 ambulatory Jabier Weems DO Work Phone: Endocrinology Comment on above: BG Log Start: 11-05-2023 E-mail encounter ciera childers Jabier Weems DO Work Phone: [facility] Start: 11-02-2023 End: 11-02-2023 ambulatory TYRELL PIERRE Facility:[facility] Start: 10-23-2023 Refill Jabier Weems DO Work Phone: Endocrinology Comment on above: Refill Request Start: 10-21-2023 End: 10-21-2023 ambulatory JUAN DAVID DE LEON Facility:[facility] Start: 10-08-2023 End: 10-10-2023 ambulatory JABIER WEEMS Facility:[facility] Start: 09-22-2023 End: 09-22-2023 ambulatory DORY CHOU Facility:[facility] Start: 09-16-2023 Telephone encounter Jabier wallace DO Work Phone: Endocrinology Start: 09-13-2023 Refill Jabier Weems DO Work Phone: Endocrinology Comment on above: Refill Request Start: 2023 End: 2023 ambulatory [facility] Facility:[facility] Start: 2023 End: 2023 Patient encounter procedure Dory Chou MD Work Phone: Maternal Medicine Comment on above: Insulin controlled g estational diabetes mellitus (GDM) in first trimester (Primary Dx); Poorly controlled diabetes mellitus (HCC); with history of section, antepartum; Hypothyroidism affecting in first trimester; Other specified hypothyroidism; Obesity affecting , antepartum, unspecified obesity type; 17 weeks gestation of ; Encounter for anatomic survey Start: 2023 End: 2023 ambulatory DORY CHOU Facility:[facility] Start: 08-30-2023 End: 08-30-2023 Emergency department patient visit NONE PHYSICIAN Facility: Start: 08-30-2023 End: 08-30-2023 Emergency department patient visit MUSA SOLIS MD [facility] Start: 08-29-2023 End: 08-29-2023 ambulatory Jabier Blessing Weems DO Work Phone: Endocrinology Comment on above: Sugar Pre-existing type 2 diabetes mellitus in in first trimester (Primary Dx); Pre-existing diabetes mellitus in in second trimester; Thyroid dysfunction in in second trimester; High-risk , second trimester Start: 08-29-2023 End: 08-29-2023 Telemedicine consultation with patient Jabier Weems DO Work Phone: [facility] Start: 08-25-2023 End: 08-25-2023 ambulatory TEMITOEP ROBLERO Facility:[facility] Start: 08-25-2023 End: 08-25-2023 Patient encounter procedure Temitope Osbaldo CEDILLOM Work Phone: OB/Gynecology Comment on above: 15 weeks gestation o f (Primary Dx); Poorly controlled diabetes mellitus (HCC); with history of section, antepartum; Other specified hypothyroidism Start: 08-20-2023 Telephone encounter Jabier wallace DO Work Phone: Endocrinology Comment on above: Question (OB Questio n) Start: 08-19-2023 ambulatory Jabier Blessing Weems DO Work Phone: Endocrinology Comment on above: Sugar Start: 08-19-2023 Telephone encounter Jabier Blessing Robels rst DO Work Phone: Endocrinology Start: 08-17-2023 ambulatory JABIER WEEMS Facility: [facility] Start: 08-13-2023 End: 08-13-2023 Subsequent hospital visit by physician Jose M [facility] Josie Work Phone: Radiology Comment on above: Acute cough [R05.1] Start: 08-13-2023 End: 08-13-2023 ambulatory BRIJESH NAVARRO Facility:[facility] Start: 08-13-2023 End: 08-13-2023 Patient encounter procedure Brijesh Navarro METAL FILER.HEREDITARY CANCER PROGRAM COORDINATOR Work Phone: [facility] Comment on above: URI, acute (Primary Dx); Acute cough; History of asthma Start: 08-04-2023 End: 08-04-2023 ambulatory JUAN DAVID DE LEON Facility:[facility] Start: 08-04-2023 End: 08-04-2023 Patient encounter procedure Juan David De Leon MD Work Phone: OB/Gynecology Comment on above: Poorly controlled di abetes mellitus (HCC) (Primary Dx); Insulin controlled gestational diabetes mellitus (GDM) in first trimester; with history of section, antepartum; Hypothyroidism affecting in first trimester; 12 weeks gestation of ; High-risk in first trimester Start: 07-27-2023 End: 07-27-[address] Nutrition Therapy Comment on above: Patient Education; A ssessment Start: 07-22-2023 End: 07-22-2023 ambulatory DOTTIE COLIVN Facility:[facility] Start: 07-20-2023 End: 07-20-2023 ambulatory Marii Nolen RN NURSE INJECTION PRESS OPERATOR Comment on above: Patient Update (Abd Pain ) Start: 07-15-2023 Telephone encounter Jabier Robles rst DO Work Phone: Endocrinology Comment on above: Appointment Start: 07-14-2023 Telephone encounter Dory mcmahan MD Work Phone: OB/Gynecology Comment on above: Follow Up Phone Call Start: 07-14-2023 End: 07-14-2023 ambulatory DORY CHOU Facility:[facility] Start: 07-14-2023 End: 07-14-2023 Patient encounter procedure Dory Chou MD Work Phone: Maternal Medicine Comment on above: Insulin controlled g estational diabetes mellitus (GDM) in first trimester (Primary Dx); Supervision of high risk due to social problems, first trimester; Poorly controlled diabetes mellitus (HCC); with history of section, antepartum; Nausea and vomiting in ; with uncertain dates in first trimester; Hypothyroidism affecting in first trimester; Pre-existing type 2 diabetes mellitus during in first trimester Start: 07-13-2023 Telephone encounter Juan David De Leon MD Work Phone: OB/Gynecology Comment on above: Future Appointment Start: 07-08-2023 End: 07-08-2023 Refill Juan David De Leon MD Work Phone: Endocrinology Start: 07-07-2023 Telephone encounter Juan David De Leon MD Work Phone: Obstetrics/Gynecology Comment on above: PRAF Start: 07-07-2023 End: 07-07-2023 ambulatory NILESH DRISCOLL Facility:[facility] Start: 07-06-2023 End: 07-06-2023 ambulatory JUAN DAVID DE LEON Facility:[facility] Start: 07-01-2023 Telephone encounter Juan David De Leon MD Work Phone: OB/Gynecology Comment on above: high risk Start: 07-01-2023 End: 07-01-2023 ambulatory JUAN DAVID DE LEON Facility:[facility] Start: 06-18-2023 End: 06-18-2023 ambulatory MEY BUCK Facility:[facility] Start: 06-17-2023 End: 06-17-2023 ambulatory MEY BUCK Facility:[facility] Start: 06-16-2023 Telephone encounter Juan David callahan MD Work Phone: OB/Gynecology Comment on above: ED Follow-up Start: 06-15-2023 End: 06-15-2023 ambulatory JUAN DAVID DE LEON Facility:[facility] Start: 06-15-2023 End: 06-15-2023 Patient encounter procedure Rolanda Frye JASIEL.HEREDITARY CANCER PROGRAM COORDINATOR Work Phone: [facility] Comment on above: Lice (Primary Dx); Vaginal pain; Possible Start: 05-28-2023 End: 05-29-2023 Emergency department patient visit NONE PHYSICIAN Facility:[facility] Start: 05-28-2023 End: 05-29-2023 Emergency department patient visit ROBERTA SALINAS MD [facility] Start: 05-06-2023 End: 05-06-2023 Patient encounter procedure Brijesh King JASIEL.HEREDITARY CANCER PROGRAM COORDINATOR Work Phone: [facility] Comment on above: Rash (Primary Dx) Start: 03-31-2023 End: 03-31-2023 Patient encounter procedure Brijesh Navarro APRN.HEREDITARY CANCER PROGRAM COORDINATOR Work Phone: [facility] Comment on above: Infection of lip (Pr imary Dx) Start: 03-27-2023 End: 03-27-2023 Patient encounter procedure Ceci Motley PA-C Work Phone: [facility] Comment on above: Recurrent genital he rpes (Primary Dx); Hypothyroidism, acquired; Peripheral edema Start: 03-21-2023 End: 03-22-2023 Emergency department patient visit TANGELA ELIZABETH JASIEL-HEREDITARY CANCER PROGRAM COORDINATOR Facility:[facility] Start: 03-21-2023 End: 03-21-2023 Emergency department patient visit MUSA SOLIS MD [facility] Start: 03-13-2023 End: 03-13-2023 Patient encounter procedure Prem DELONG Work Phone: [facility] Comment on above: Acute midline low ba ck pain without sciatica (Primary Dx); Glucosuria; Hyperglycemia Start: 02-24-2023 End: 02-24-2023 Emergency department patient visit LASHANDA PAYTON DO Facility:[facility] Start: 11-19-2022 End: 11-19-2022 Patient encounter procedure Prem DELONG Work Phone: [facility] Comment on above: Recurrent genital he rpes (Primary Dx); Genital herpes simplex, unspecified site Start: 10-14-2022 Telephone encounter Prem DELONG Work Phone: [facility] Comment on above: Results Start: 10-13-2022 End: 10-13-2022 Office outpatient new 30 minutes Inessa Esteban PA-C Work Phone: [facility] Comment on above: Diarrhea, unspecifie d type (Primary Dx); Acute cough Start: 06-18-2022 End: 06-18-2022 Emergency department patient visit MERRITT PATRICIAFIELD SHAH [facility] [facility] Start: 03-31-2022 End: 03-31-2022 Patient encounter procedure EVELIO MIRANDA METAL FILER-HEREDITARY CANCER PROGRAM COORDINATOR [facility] Start: 03-18-2022 Refill Pop FUENTES RN.HEREDITARY CANCER PROGRAM COORDINATOR Work Phone: OB/Gynecology Comment on above: Refill Request; Refi ll Request Start: 03-17-2022 End: 03-17-2022 Emergency department patient visit LENNOX ALDRICH MD [facility] Start: 02-20-2022 End: 02-20-2022 Patient encounter procedure TANGELA JOHNSON METAL FILER-HEREDITARY CANCER PROGRAM COORDINATOR [facility] Start: 10-17-2021 End: 10-17-2021 Emergency department patient visit SANDRA SOTO MD [facility] Procedures Date Procedure Procedure Detail Performing Clinician Start: 02-24-2024 Antibody screen JUAN DAVID DE LEON Comment on above: Order Comment: Speci men Type: BLOOD SPECIMENOrdering Facility: [facility] Address: [address] [place] [address] Performed By: #### T SCR ####CC [facility] BLOOD BANKCLIA [id number] [address] Start: 02-05-2024 Gluc bld gluc mntr d ev cleared fda spec home use Rolanda Frye APRN.HEREDITARY CANCER PROGRAM COORDINATOR Work Phone: Start: 01-04-2024 Antibody screen JUAN DAVID DE LEON Comment on above: Order Comment: Speci men Type: BLOOD SPECIMENOrdering Facility: [facility] Address: [address] [place] [address] Performed By: #### T SPN ####CC [facility] BLOOD BANKIA [id number] [address] Start: 01-04-2024 biophysical pr ofile non-stress testing Mey Buck MD Work Phone: Start: 12-29-2023 biophysical pr ofile non-stress testing Mey Buck MD Work Phone: Start: 12-25-2023 biophysical pr ofile non-stress testing Juan David De Leon MD Work Phone: Start: 12-22-2023 URINE OB DIP B/O Howard Man MD Work Phone: Start: 12-22-2023 Us preg uterus after 1st trimest 10/05 gestation Trupti Esteban MD Work Phone: Start: 12-18-2023 URINE OB DIP B/O Humphrey Frye MD Work Phone: Start: 12-15-2023 biophysical pr ofile non-stress testing Mey Buck MD Work Phone: Start: 12-03-2023 URINE OB DIP B/O Mey Buck MD Work Phone: Start: 11-18-2023 URINE OB DIP B/O Mey Buck MD Work Phone: Start: 11-18-2023 Us preg uterus after 1st trimest 10/05 gestation Juan David De Leon MD Work Phone: Start: 10-08-2023 Antibody screen JABIER RIVERA Comment on above: Order Comment: Speci men Type: BLOOD SPECIMENOrdering Facility: [facility] Address: [address] [place] [address] Performed By: #### T SPN ####[facility] BLOOD BANKCLIA [id number] [address] [place] Start: 2023 Us preg uterus after 1st trimest 10/05 gestation Juan David De Leon MD Work Phone: Start: 08-25-2023 URINE OB DIP B/O Woodrow Roblero METAL FILER.CNM Work Phone: Start: 08-13-2023 Radiologic exam ches t 2 views Brijesh Navarro METAL FILER.HEREDITARY CANCER PROGRAM COORDINATOR Work Phone: Start: 08-04-2023 URINE OB DIP B/O Luci De Leon MD Work Phone: Start: 07-06-2023 Antibody screen JUAN DAVID DE LEON Comment on above: Order Comment: Speci men Type: BLOOD SPECIMENOrdering Facility: [facility] Address: [address] [place], [place] [id number] Performed By: #### T SPN ####CC [facility] BLOOD BANKCLIA [id number] [address] [place] Start: 06-15-2023 Urine test visual color cmprsn meths Rolanda Frye APRN.HEREDITARY CANCER PROGRAM COORDINATOR Work Phone: Start: 03-13-2023 Gluc bld gluc mntr d ev cleared fda spec home use Prem Becerra PA Work Phone: Start: 03-13-2023 Urnls dip stick/tabl et rgnt auto w/o microscopy Rolanda Frye APRN.HEREDITARY CANCER PROGRAM COORDINATOR Work Phone: Start: 10-13-2022 COVID WITH FLUA+B, ROUTINE Inessa Esteban PA-C Work Phone: section SANDRA SOTELO SA, MD Cholecystectomy SANDRA Samuel MD Myringotomy and inse rtion of tympanic ventilation tube SANDRA SOTO MD Tonsillectomy and adenoidectomy SANDRA SOTO MD Plan of Treatment Date Care Activity Detail Author Start: 2056 RSV Vaccine (1 - 1-d ose 60+ series) RSV Vaccine (1 - 1-dose 60+ series) [facility] Start: 01-07-2034 Urine microalbumin profile DTaP,Tdap,Td Vaccine (8 - Td or Tdap) [facility] Start: 07-06-2026 Pap Testing Pap Testing [facility] Start: 07-06-2026 Screening for malign ant neoplasm of cervix [facility] Start: 05-16-2025 Hepatitis B screening Urine Albumin:Creatinine Ratio [facility] Start: 02-15-2025 End: 02-15-2025 Patient encounter procedure 02/15/2025 11:30 AM EDT Office Visit OB/Gynecology [address] [place], [place] [id number] Dottie Colvin APRN.CNM [address] [place], [place] [id number] Annual OB/Gynecology Comment on above: Annual Start: 08-16-2024 Hemoglobin A1c measurement HbA1C [facility] Start: 07-07-2024 Glaucoma screening Dilated Retinal E xam [facility] Start: 07-07-2024 Hepatitis C antibody , confirmatory test Dilated Retinal Exam [facility] Start: 07-07-2024 End: 07-07-2024 Follow-up encounter 07/07/2024 9:15 AM EDT [facility] Endocrinology [address] [place] [address] Belinda Garrido METAL FILER.HEREDITARY CANCER PROGRAM COORDINATOR [address] [place] [address] 3 month follow up Endocrinology Comment on above: 3 month follow up Start: 06-05-2024 Covid-19 Vaccine () Covid-19 Vaccine () [facility] Start: 06-05-2024 Influenza vaccination C [facility] Start: 03-21-2024 End: 06-20-2024 Hemoglobin A1c in Blood HEMOGLOBIN A1C Lab Routine Type 2 diabetes mellitus with hyperglycemia, with long-term current use of insulin (HCC) Expected: 03/21/2024, Expires: 06/20/2024 [facility] Work Phone: Comment on above: Expected: 03/21/2024 , Expires: 06/20/2024 Start: 03-21-2024 End: 06-20-2024 Microalbumin/Creatinine [Mass Ratio] in Urine ALBUMIN/CREATININE RATIO, URINE Lab Routine Type 2 diabetes mellitus with hyperglycemia, with long-term current use of insulin (HCC) Expected: 03/21/2024, Expires: 06/20/2024 [facility] Comment on above: Expected: 03/21/2024 , Expires: 06/20/2024 Start: 03-21-2024 End: 06-20-2024 Thyrotropin [Units/volume] in Serum or Plasma THYROID STIMULATING HORMONE Lab Routine Acquired hypothyroidism Expected: 03/21/2024, Expires: 06/20/2024 [facility] Comment on above: Expected: 03/21/2024 , Expires: 06/20/2024 Start: 03-21-2024 End: 06-20-2024 Thyroxine (T4) free [Mass/volume] in Serum or Plasma T4 FREE/FREE THYROXINE Lab Routine Acquired hypothyroidism Expected: 03/21/2024, Expires: 06/20/2024 [facility] Comment on above: Expected: 03/21/2024 , Expires: 06/20/2024 Start: 03-21-2024 End: 03-21-2024 Patient encounter procedure 03/21/2024 10:00 AM EDT [facility] Endocrinology [address] [place], [place] [id number] Belinda Garrido APRN.HEREDITARY CANCER PROGRAM COORDINATOR [id number] [place] [address] Weems in 6 months Endocrinology Comment on above: NEREIDA Weems i n 6 months Start: 03-09-2024 Hemoglobin A1c measurement HbA1C [facility] Start: 03-09-2024 Hemoglobin A1c/Hemoglobin.total in Blood HbA1C [facility] Start: 03-02-2024 Hemoglobin A1c measurement HbA1C [facility] Start: 02-23-2024 End: 02-23-2024 ambulatory 02/23/2024 1:00 PM EDT [facility] Psychiatry [address] [facility] [address] [place] [address] Natalie Briones DO [address] [place], [place] [phone] Other depression [F32.89] Psychiatry Comment on above: Other depression [F3 2.89] Start: 02-23-2024 End: 02-23-2024 Patient encounter procedure 02/23/2024 10:30 AM EDT Office Visit OB/Gynecology [address] [place], [place] [id number] Humphrey Frye MD [address] [place], [place] [phone] PP OB/Gynecology Comment on above: PP Start: 02-20-2024 End: 02-20-2024 Follow-up encounter 02/20/2024 3:20 PM EDT [facility] Endocrinology [address] [place] [address] Jabier Weems DO [address] [place] [address] follow up per [facility] Comment on above: follow up per [facility] Start: 02-16-2024 End: 02-16-2024 Patient encounter procedure 02/16/2024 10:00 AM EDT Office Visit OB/Gynecology [address] [place], [place] [phone] Humphrey Frye MD [address] [place], [place] [address] PP OB/Gynecology Comment on above: PP Start: 01-30-2024 End: 01-30-2024 Follow-up encounter 01/30/2024 11:20 AM EDT [facility] Endocrinology [address] [place] [address] Jabier Weems, DO [address] [place] [address] 5 week virtual follow up per [facility] Comment on above: 5 week virtual follo w up per [facility] Start: 12-15-2023 End: 12-14-2024 OBSTETRIC ULTRASOUND WHI OBSTETRIC ULTRASOUND WHI Anc Imaging Routine with type 2 diabetes mellitus in second trimester Expected: 12/15/2023, Expires: 12/14/2024 [facility] Work Phone: Comment on above: Expected: 12/15/2023 , Expires: 12/14/2024 Start: 12-08-2023 End: 03-08-2024 Thyrotropin [Units/volume] in Serum or Plasma TSH BLD Lab Routine Thyroid dysfunction in in third trimester Expected: 12/08/2023, Expires: 03/08/2024 [facility] Work Phone: Comment on above: Expected: 12/08/2023 , Expires: 03/08/2024 Start: 12-08-2023 End: 03-08-2024 Thyroxine (T4) [Mass/volume] in Serum or Plasma T4/THYROXINE BLOOD Lab Routine Thyroid dysfunction in in third trimester Expected: 12/08/2023, Expires: 03/08/2024 [facility] Work Phone: Comment on above: Expected: 12/08/2023 , Expires: 03/08/2024 Start: 10-06-2023 Hemoglobin A1c/Hemoglobin.total in Blood HbA1C [facility] Start: 10-05-2023 Behavioral Health Screening Behavioral Health Screening [facility] Start: 10-05-2023 Depression Assessment Depression Ass essment [facility] Start: 10-05-2023 End: 01-04-2024 Hemoglobin A1c in Blood HGB A1C Lab Routine Pre-existing diabetes mellitus in in second trimester Expected: 10/05/2023 (Approximate), Expires: 01/04/2024 [facility] Work Phone: Comment on above: Expected: 10/05/2023 (Approximate), Expires: 01/04/2024 Start: 10-05-2023 End: 01-04-2024 Thyrotropin [Units/volume] in Serum or Plasma TSH BLD Lab Routine Pre-existing diabetes mellitus in in second trimester Expected: 10/05/2023 (Approximate), Expires: 01/04/2024 [facility] Work Phone: Comment on above: Expected: 10/05/2023 (Approximate), Expires: 01/04/2024 Start: 10-05-2023 End: 01-04-2024 Thyroxine (T4) [Mass/volume] in Serum or Plasma T4/THYROXINE BLOOD Lab Routine Pre-existing diabetes mellitus in in second trimester Expected: 10/05/2023 (Approximate), Expires: 01/04/2024 [facility] Work Phone: Comment on above: Expected: 10/05/2023 (Approximate), Expires: 01/04/2024 Start: 08-04-2023 End: 11-03-2023 Chromosome 21 trisomy [Presence] in Blood or Tissue by Cytogenetics [facility] Work Phone: Comment on above: Expected: 08/04/2023 , Expires: 11/03/2023 Start: 08-04-2023 End: 08-04-2024 OBSTETRIC ULTRASOUND WHI OBSTETRIC ULTRASOUND WHI Anc Imaging Routine Poorly controlled diabetes mellitus (HCC) Insulin controlled gestational diabetes mellitus (GDM) in first trimester with history of section, antepartum Hypothyroidism affecting in first trimester 12 weeks gestation of Expected: 08/04/2023, Expires: 08/04/2024 [facility] Work Phone: Comment on above: Expected: 08/04/2023 , Expires: 08/04/2024 Start: 06-15-2023 End: 08-15-2023 Fungus identified in Unspecified specimen by Culture [facility] Work Phone: Comment on above: Expected: 06/15/2023 , Expires: 08/15/2023 Start: 06-05-2023 Covid-19 Vaccine () Covid-19 Vaccine () [facility] Start: 06-05-2023 Influenza vaccination C [facility] Start: 03-13-2023 End: 05-13-2023 Bacteria identified in Urine by Culture URINE CULTURE Microbiology Routine Acute midline low back pain without sciatica Expected: 03/13/2023, Expires: 05/13/2023 [facility] Work Phone: Comment on above: Expected: 03/13/2023 , Expires: 05/13/2023 Start: 10-05-2022 DEPRESSION ASSESSMENT DEPRESSION ASS ESSMENT [facility] Start: 07-12-2022 PAP TESTING PAP TESTING [facility] Start: 06-05-2022 Influenza vaccination C [facility] Start: 01-29-2022 COVID-19 VACCINE (3 - Booster for Pfizer series) COVID-19 VACCINE (3 - Booster for Pfizer series) [facility] Start: 01-29-2022 COVID-19 VACCINE (3 - Pfizer series) COVID-19 VACCINE (3 - Pfizer series) [facility] Start: 05-27-2020 3 comp foot exam completed DIABETIC FOOT EXAM [facility] Start: 05-27-2020 Diabetic foot examination Diabetic Foot Exam [facility] Start: 01-04-2020 Urine microalbumin profile [facility] Start: 11-25-2019 Hemoglobin A1c/Hemoglobin.total in Blood HBA1C [facility] Start: 2015 HEPATITIS B (1 of 3 - Risk 3-dose series) HEPATITIS B (1 of 3 - Risk 3-dose series) [facility] Start: 2014 ANNUAL PCP 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 BARBARA DISEASE VISIT ANNUAL PCP TEAM CHRONIC DISEASE VISIT [facility] Start: 2014 Anxiety Screening Anxiety Screening [facility] Start: 2014 Depression Screening Depression Scre ening [facility] Start: 2014 Hepatitis B surface antibody level LDL CHOLESTEROL [facility] Start: 2014 Spirometry Spirometry [facility] Start: 2010 PEDS TO ADULT TRANSITION ANNUAL ASSESSMENT PEDS TO ADULT TRANSITION ANNUAL ASSESSMENT [facility] Start: 2008 Adult depression screening assessment DEPRESSION SCREENING [facility] Start: 2008 PEDS TO ADULT TRANSITION INITIAL DISCUSSION PEDS TO ADULT TRANSITION INITIAL DISCUSSION [facility] Start: 2006 Hepatitis B screening URINE ALBUMIN:CREATININE RATIO [facility] Start: 2006 Hepatitis C antibody , confirmatory test DILATED RETINAL EXAM [facility] Start: 2006 MENINGOCOCCAL B: Consider based on risk (1 of 2 - Risk Bexsero 2-dose series) MENINGOCOCCAL B: Consider based on risk (1 of 2 - Risk Bexsero 2-dose series) [facility] Start: 2002 PNEUMOCOCCAL (1 - PCV) PNEUMOCOCCAL (1 - PCV) [facility] Start: 2002 Pneumococcal vaccination [facility] Start: 2001 COVID-19 VACCINE (#1) COVID-19 VACCI NE (#1) [facility] Start: 1996 HEPATITIS B (1 of 3 - 3-dose series) HEPATITIS B (1 of 3 - 3-dose series) [facility] Start: 1996 Hepatitis B Vaccine (1 of 3 - 3-dose series) Hepatitis B Vaccine (1 of 3 - 3-dose series) [facility] BACTERIAL VAGINOSIS NAAT BACTERIAL VAGINOSIS NAAT Lab Routine Poorly controlled diabetes mellitus (HCC) Herpes simplex vulvovaginitis 33 weeks gestation of 12/28/2023 11:14 AM EDT [facility] Work Phone: End: 05-18-2024 BIOPHYSICAL PROFILE US WHI BIOPHYSICAL PROFILE US I Anc Imaging Routine Poorly controlled diabetes mellitus (HCC) High-risk in second trimester Once per week for 10 Occurrences starting 11/20/2023 until 05/18/2024 [facility] Work Phone: Comment on above: Once per week for 10 Occurrences starting 11/20/2023 until 05/18/2024 End: 05-31-2024 BIOPHYSICAL PROFILE US WHI BIOPHYSICAL PROFILE US I Anc Imaging Routine with type 2 diabetes mellitus in second trimester High-risk in second trimester High-risk in first trimester Once per week for 10 Occurrences starting 12/03/2023 until 05/31/2024 [facility] Work Phone: Comment on above: Once per week for 10 Occurrences starting 12/03/2023 until 05/31/2024 JOHANNY/TRICHOMONAS NAAT JOHANNY/TRICHOMONAS NAAT Lab Routine Poorly controlled diabetes mellitus (HCC) Herpes simplex vulvovaginitis 33 weeks gestation of 12/28/2023 11:14 AM EDT [facility] Work Phone: End: 2024 ECHO ECHO Cardiology Routine Poorly controlled diabetes mellitus (HCC) 1 Occurrences starting 2023 until 2024 [facility] Work Phone: Comment on above: 1 Occurrences starti ng 2023 until 2024 nonstress test NON-S TRESS TEST Procedures Routine Poorly controlled diabetes mellitus (HCC) High-risk in second trimester Ordered: 11/20/2023 [facility] Work Phone: Comment on above: Ordered: 11/20/2023 End: 02-15-2024 nonstress test NON-STRESS TEST Procedures Routine with type 2 diabetes mellitus in second trimester High-risk in second trimester High-risk in first trimester Once per week for 8 Occurrences starting 12/03/2023 until 02/15/2024 [facility] Work Phone: Comment on above: Once per week for 8 Occurrences starting 12/03/2023 until 02/15/2024 [facility] Immunizations Immunization Date Immunization Notes Care Provider Logan mancia 01-08-2024 tetanus toxoid, redu helena diphtheria toxoid, and acellular pertussis vaccine, adsorbed Humphrey Frye MD Work Phone: [facility] 12-04-2021 SARS-CoV-2 mRNA (ogkhsbswtrj-eown-nbiea se) vaccine TANGELA JOHNSON METAL FILER-HEREDITARY CANCER PROGRAM COORDINATOR [facility] 11-13-2021 SARS-CoV-2 mRNA (tozinameran) vaccine TANGELA JOHNSON METAL FILER-HEREDITARY CANCER PROGRAM COORDINATOR [facility] 06-19-2010 human papilloma viru s vaccine, quadrivalent Pop Arvizu METAL FILER.HEREDITARY CANCER PROGRAM COORDINATOR Work Phone: [facility] 01-03-2010 human papilloma viru s vaccine, quadrivalent Pop Arvizu METAL FILER.HEREDITARY CANCER PROGRAM COORDINATOR Work Phone: [facility] 01-03-2010 tetanus toxoid, redu helnea diphtheria toxoid, and acellular pertussis vaccine, adsorbed Pop Arvizu METAL FILER.HEREDITARY CANCER PROGRAM COORDINATOR Work Phone: [facility] 10-26-2009 human papilloma viru s vaccine, quadrivalent Ppo Arvizu METAL FILER.HEREDITARY CANCER PROGRAM COORDINATOR Work Phone: [facility] 08-29-2009 influenza, seasonal, injectable Pop Arvizu METAL FILER.HEREDITARY CANCER PROGRAM COORDINATOR Work Phone: [facility] 08-29-2009 influenza virus vaccine, unspecified formulation Juan David De Leon MD Work Phone: [facility] 01-28-2002 diphtheria, tetanus toxoids and acellular pertussis vaccine, unspecified formulation TANGELA ELIZABETH METAL FILER-HEREDITARY CANCER PROGRAM COORDINATOR [facility] 01-28-2002 measles, mumps and rubella virus vaccine Juan David De Leon MD Work Phone: [facility] Work Phone: 01-28-2002 measles/mumps/rubell a virus vaccine SANDRA SOTO MD [facility] 01-28-2002 poliovirus vaccine, inactivated SANDRA SOTO MD [facility] 12-07-1997 diphtheria, tetanus toxoids and acellular pertussis vaccine, unspecified formulation TANGELA JOHNSON METAL FILER-HEREDITARY CANCER PROGRAM COORDINATOR [facility] 12-07-1997 haemophilus influenz ae type b vaccine, PRP-T conjugate SANDRA SOTO MD [facility] 09-11-1997 hepatitis B pediatri c vaccine SANDRA SOTO MD [facility] 09-11-1997 hepatitis B vaccine, pediatric or pediatric/adolescent dosage Juan David De Leon MD Work Phone: [facility] Work Phone: 09-11-1997 measles, mumps and rubella virus vaccine Juan David De Leon MD Work Phone: [facility] Work Phone: 09-11-1997 measles/mumps/rubell a virus vaccine SANDRA SOTO MD [facility] 03-22-1997 diphtheria, tetanus toxoids and acellular pertussis vaccine, unspecified formulation TANGELA JOHNSON METAL FILER-HEREDITARY CANCER PROGRAM COORDINATOR [facility] 03-22-1997 haemophilus influenz ae type b vaccine, PRP-T conjugate SANDRA SOTO MD [facility] 03-22-1997 poliovirus vaccine, live, trivalent TANGELA JOHNSON METAL FILER-HEREDITARY CANCER PROGRAM COORDINATOR [facility] 03-22-1997 trivalent poliovirus vaccine, live, oral Juan David De Leon MD Work Phone: [facility] Work Phone: 01-16-1997 diphtheria, tetanus toxoids and acellular pertussis vaccine, unspecified formulation TANGELA JOHNSON METAL FILER-HEREDITARY CANCER PROGRAM COORDINATOR [facility] 01-16-1997 haemophilus influenz ae type b vaccine, PRP-T conjugate SANDRA SOTO MD [facility] 01-16-1997 poliovirus vaccine, live, trivalent TANGELA JOHNSON METAL FILER-HEREDITARY CANCER PROGRAM COORDINATOR [facility] 01-16-1997 trivalent poliovirus vaccine, live, oral Juan David De Leon MD Work Phone: [facility] Work Phone: 1996 diphtheria, tetanus toxoids and acellular pertussis vaccine, unspecified formulation TANGELA JOHNSON METAL FILER-HEREDITARY CANCER PROGRAM COORDINATOR [facility] 1996 diphtheria, tetanus toxoids and pertussis vaccine Juan David De Leon MD Work Phone: [facility] Work Phone: 1996 haemophilus influenz ae type b vaccine, PRP-T conjugate ASNDRA SOTO MD [facility] 1996 hepatitis B pediatri c vaccine SANDRA SOTO MD [facility] 1996 hepatitis B vaccine, pediatric or pediatric/adolescent dosage Juan David De Leon MD Work Phone: [facility] Work Phone: 1996 poliovirus vaccine, live, trivalent TANGELA ELIZABETH METAL FILER-HEREDITARY CANCER PROGRAM COORDINATOR [facility] 1996 trivalent poliovirus vaccine, live, oral Juan David De Leon MD Work Phone: [facility] Work Phone: 1996 hepatitis B pediatri c vaccine SANDRA SOTO MD [facility] 1996 hepatitis B vaccine, pediatric or pediatric/adolescent dosage Juan David De Leon MD Work Phone: [facility] Work Phone: Payers Date Payer Category Payer Unknown [id number] 2019 Medicaid [employer] [id number] 2019-Present [phone] [address] [place] [address] Medicaid [id number] 2019 Medicaid [id number] 1996 Unknown [id number] 1996 Unknown [id number] 1996 Unknown [id number] 1996 Unknown [id number] Social History Date Type Detail Facility Start: 09-04-2019 Never smoked t obacco (finding) [facility] Sex Assigned At Female [facility] Start: 05-23-2019 End: 03-13-2023 Tobacco smoking status NHIS Ex-smoker [facility] Work Phone: End: 10-22-2018 History of tobacco use Current smoker [facility] Work Phone: End: 10-22-2018 History of tobacco use Cigarette Smoker [facility] Work Phone: Start: 05-23-2019 End: 03-13-2023 Tobacco use and exposure Smokeless tobacco non-user [facility] Work Phone: Start: 07-25-2020 End: 08-13-2023 Alcohol intake Ex-drinker (finding) [facility] Start: 05-23-2019 End: 10-13-2022 Tobacco Comment social smoker [facility] Start: 1996 Sex Assigned At Not on file [facility] Start: 05-06-2023 End: 06-05-2023 History of Social function [facility] Work Phone: Start: 05-06-2023 End: 06-05-2023 Tobacco use panel [facility] Work Phone: National Score (1-10 0), lower number is lower risk 71 [facility] Work Phone: The thought of mary jay myself has occurred to me Never [facility] Work Phone: Start: 07-01-2023 Education 12 [facility] Start: 05-20-2023 [facility] (I/We) worried wheth er (my/our) food would run out before (I/we) got money to buy more. Never true [facility] Work Phone: In the past 12 month s, was there a time when you were not able to pay the mortgage or rent on time? No [facility] Work Phone: Medical Equipment Procedure Code Equipment Code Equipment Origin al Text Equipment Identifier Dates [id number], [id number], [id number], [id number], [id number], [id number], [id number], [id number] Start: 07-06-2023 End: 12-08-2023 Comment on above: Use as directed to c heck glucose levels up to seven times daily. 1 Each four times da josefa. USE WITH INSULIN PENS/ BYETTA PENS 4 TIMES DAILY Use to inject insuli n up to 8 times per day. USE THREE TIMES A DA Y DIRECTED Goals Date Patient Goal Desired Activity /State Personal health goal Personal health goal Functional Status Date Assessment Result Facility 08-30-2023 Functional Status Independent [facility] 08-30-2023 Functional Status Ambulation in [place], Ambulation in Room [facility] 05-29-2023 Functional Status Awake [facility] 03-21-2023 Functional Status Activity Niko tance Independent [facility] 03-21-2023 Functional Status Standard Safet y ID band on, Allergy Band on, Call device within reach, Bed in low position, Wheels locked, Upper/Half-Length side-rails up, Phone within reach, Bedside Cart Locked [facility] 06-18-2022 Functional Status ID band on, Allergy Band on, Call device within reach, Bed in low position, Wheels locked [facility] 03-17-2022 Functional Status Ambulating in trejo, Ambulating in room, Awake [facility] 03-17-2022 Functional Status [facility] Mental Status Date Assessment Result Facility 08-30-2023 Mental Status Orientation Oriented x 4 [facility] 08-30-2023 Mental Status [facility] 05-29-2023 Mental Status Oriented x 4 [facility] 03-21-2023 Mental Status Orientation Oriented x 4 [facility] 03-21-2023 Mental Status [facility] 06-18-2022 [facility] Status Oriented x [facility] 03-17-2022 Mental Status [facility] Notes 05-23-2019 to 05-03-2024 Prem Becerra, BALJEET - 05/03/2024 11:42 AM EDTMoomawÁngel APRN.HEREDITARY CANCER PROGRAM COORDINATOR - 04/22/2024 8:45 AM EDTTelephone Encounter - Isatu Riggs - 04/12/2024 3:10 PM EDTPatient Instructions Note Date & Type Note [facility] 05-03-2024 Note [facility] 05-03-2024 History of Presen t illness Narrative This note was created using Fractureriter. Subjective Rosa Cervantes is a 28 year old female. HPI 28-year-old female presents for bilateral ear pain, sinus congestion, sinus pressure. Patient states symptoms have been present for 5 days. She has a mild cough. She did have a fever for a day when her symptoms started, but that has resolved. No vomiting or diarrhea. No sick contacts. Has been using some zsge-cuh-qkwxehh medications with minimal improvement. No other complaint. Not or breast-feeding. Review of Systems Constitutional: Negative for chills and fever. HENT: Positive for congestion, ear pain, sinus pressure and sinus pain. Negative for sore throat. Respiratory: Positive for cough. Negative for shortness of breath. Cardiovascular: Negative for chest pain. Gastrointestinal: Negative for diarrhea and vomiting. Objective BP 122/68 Pulse 94 Temp 36.7 C (98 F) Resp 16 Wt 110.4 kg (243 lb 6.2 oz) LMP 02/02/2024 (Approximate) SpO2 99% BMI 43.13 kg/m Physical Exam Vitals and nursing note reviewed. Constitutional: General: She is not in acute distress. Appearance: Normal appearance. She is not toxic-appearing. HENT: Right Ear: A middle ear effusion is present. Tympanic membrane is erythematous. Left Ear: Tympanic membrane and ear canal normal. Nose: Congestion present. Right Sinus: Maxillary sinus tenderness present. Left Sinus: Maxillary sinus tenderness present. Mouth/Throat: Mouth: Mucous membranes are moist. Eyes: Conjunctiva/sclera: Conjunctivae normal. Cardiovascular: Rate and Rhythm: Normal rate and regular rhythm. Pulmonary: Effort: Pulmonary effort is normal. Breath sounds: Normal breath sounds. Skin: General: Skin is warm and dry. Neurological: Mental Status: She is alert. Assessment and Plan ASSESSMENT/PLAN: 1. Acute otitis media, right - ICD9: 382.9, ICD10: H66.91 (primary diagnosis) - Will begin treatment with Doxycycline - Supportive care with plenty of fluids, rest, and analgesia prn. 2. Sinus congestion - ICD9: 478.19, ICD10: R09.81 -X 5 days. Advised patient most likely viral. I am treating her ear as above with doxycycline which I advised would also cover for sinus infection. Patient has allergy to amoxicillin. -Recommend Flonase, OTC decongestants. Diagnosis and treatment plan were discussed and questions were answered to the patient's satisfaction. Pt acknowledged understanding of concepts and follow up plan. Specific signs and symptoms that would indicate the need for higher level of care were discussed in detail warranting prompt ER evaluation. BALJEET Coronel documented in this encounter [facility] 04-22-2024 Note [facility] 04-22-2024 History of Presen t illness Narrative Images from the original note were not included. This note was created using Fractureriter. Subjective Rosa Cervantes is a 28 year old female. HPI Pt presents today requesting more antibiotics for her chronic post C section abdominal wound. She states that she finished a course of oral antibiotics about three weeks ago and has been on multiple courses of IV and oral antibiotics since her surgery in January of this year. She states that she was sent here to get antibiotics as she could not get to [place] for a visit with her provider. She states that she has not been scheduled for a follow up at this point. She notes that the wound has been draining for the last several months with no change in volume or color of drainage. She notes that the packing always appears to be saturated with drainage with each change but denies any changes in this over the last several weeks. She denies any pain, fever, increase in drainage, redness or swelling. Review of Systems Constitutional: Negative for fatigue and fever. Gastrointestinal: Negative for abdominal pain. Skin: Positive for wound. Negative for color change. Objective LMP 02/02/2024 (Approximate) Physical Exam Vitals and nursing note reviewed. Constitutional: General: She is not in acute distress. Appearance: Normal appearance. She is not ill-appearing. HENT: Head: Normocephalic. Mouth/Throat: Mouth: Mucous membranes are moist. Eyes: Conjunctiva/sclera: Conjunctivae normal. Cardiovascular: Rate and Rhythm: Normal rate and regular rhythm. Pulmonary: Effort: Pulmonary effort is normal. Breath sounds: Normal breath sounds. Abdominal: Tenderness: There is no abdominal tenderness. There is no guarding. Musculoskeletal: General: Normal range of motion. Cervical back: Normal range of motion. Skin: General: Skin is warm and dry. Comments: Suprapubic incision noted under abdominal pannus. Would covered with a feminine pad with scant amount of drainage noted. Packing in place. No surrounding erythema or tenderness to incision. Neurological: General: No focal deficit present. Mental Status: She is alert. Psychiatric: Mood and Affect: Mood normal. Behavior: Behavior normal. Assessment and Plan ASSESSMENT/PLAN: 1. Encounter for post surgical wound check - ICD9: V58.49, ICD10: Z48.89 Pt had a benign physical exam with no signs of surround erythema, drainage, tenderness, fever, or tachycardia. I discussed with pt that as she has been on multiple courses of antibiotics and her exam was benign I felt that it would be in her best interest to follow up with her specialists and not initiate another round of antibiotics at this time. Pt was encouraged to monitor for fever, increased tenderness and drainage and go directly to the nearest ER for further evaluation of these worsening symptoms develop. Ángel Banda APRN.NEREIDA documented in this encounter [facility] 04-12-2024 Telephone encounter Note Left voicemail for patient to call [phone] to schedule 6 month follow up [address] Weems after [facility] visit. [facility] 04-12-2024 Miscellaneous Notes Left voicemail for patient to call [phone] to schedule 6 month follow up [address] Weems after [facility] visit. Patient needs 6 month follow up with Dr. Weems from 03/21/2024 appointment with Belinda Garrido. documented in this encounter [facility] 04-02-2024 Note [facility] 04-02-2024 Telephone encounter Note Patient needs 6 month follow up with Dr. Weems from 03/21/2024 appointment with Belinda Garrido. [facility] 03-21-2024 Telephone encounter Note Looks like visit was completed. [facility] 03-21-2024 Miscellaneous Notes Looks like visit was completed. documented in this encounter [facility] 03-21-2024 Belinda Chapin APRN.HEREDITARY CANCER PROGRAM COORDINATOR - 03/21/2024 10:34 AM EDT Increase Glargine to 52 units daily Continue Humalog 12 units before each meal plus sliding scale: If Blood Glucose (mg/dL) is <110 Give 0 units 111-150 Give 0 units 151-200 Give 2 unit 201-250 Give 4 units 251-300 Give 6 units 301-350 Give 8 units 351-400 Give 10 units >400 Call physician. Restart the eliane - let us know if you have any issues Send me readings in 1-2 weeks Get blood work when you can Follow up in 3 months with me and [address] Weems documented in this encounter [facility] 03-21-2024 Note [facility] 03-21-2024 History of Presen t illness Narrative Endocrinology Follow-up I have communicated my name and active licensure. The patient's identity and physical location were verified at the time of this visit. Either the patient or their legal customer retention representative has been informed of the risks and benefits of -- and alternatives to -- treatment through a remote evaluation and consents to proceed with the evaluation remotely. History of Present Illness Rosa Cervantes is a 28 year old female presents today for follow up of DM Type 2. Initial visit with me Patient of Dr Weems; TAMMY 12/07/23 Hospitalized 02/22-02/24: 7 weeks /postoperative from a who was transferred ED-to-ED for concerns for persistent surgical site infection and possible abscess. Endocirnology was consulted during admission d/t hyperglycemia (200-400s). Sent home on MDI. Glargine 48 units QHS , Lispro 12 units before meals plus SS #2 She states she is feeling better She is checking her bgs manually. Last time she checked was 3 days ago- she reports that her glucometer broke. She is breast feeding and pumping PMH significant for: PAST MEDICAL HISTORY Diagnosis Date Abnormal Pap smear of cervix Anemia Asthma has not used an inhaler since age 18 Breast abscess Cellulitis 06/2022 breast Complication of anesthesia has issues with breathing after being woken-uses Albuterol Depression Diabetes mellitus (HCC) IDDM Genital herpes Gestational diabetes History of herpes genitalis 05/23/2019 Hypothyroid PCOS (polycystic ovarian syndrome) depression Date of Diagnosis: after GDM in 2019 Last HbA1c: Hemoglobin A1C (%) Date Value 12/03/2023 8.0 2023 7.7 07/06/2023 10.1 05/25/2019 7.5 Complications Microvascular: denies Macrovascular: denies Health Maintenance Topics Topic Date Due Diabetic Foot Exam 05/27/2020 Physical Activity: walking Diet: no changes; tries to eat 3 meals with snacks SMBG Frequency of Monitoring: around 4 times daily BG Values: AM: 150-200 Before meals 170-180 Before dinner: sometimes over 200 Bedtime: around 190 Hypoglycemia Frequency: denies Current DM Related Medications: Current Medications 03/21/2024 DIABETES THERAPIES Medication Dosage Pharm Subclass insulin glargine 100 unit/mL (3 mL) Inject 48 Units subcutaneously daily at bedtime. Insulin Analogs - Long Acting insulin lispro (HUMALOG KWIKPEN) 100 unit/mL Inject 12 Units subcutaneously with meals AND 0-10 Units three times a day before meals. Hold mealtime insulin if meal skipped. When eating, use lispro sliding scale #2 in addition to scheduled 12 units with meals depending on blood sugar. If Blood Glucose (mg/dL) is <110 Give 0 units 111-150 Give 0 units 151-200 Give 2 unit 201-250 Give 4 units 251-300 Give 6 units 301-350 Give 8 units 351-400 Give 10 units >400 Call physician.. Insulin Analogs - Rapid Acting OTHER Medication Dosage Pharm Subclass acetaminophen (TYLENOL) 500 mg tablet Take 2 tablets by mouth every 6 hours as needed for pain. Analgesic or Antipyretic Non-Opioid acyclovir (ZOVIRAX) 400 mg tablet Take 1 tablet by mouth two times a day. Herpes Antiviral Agent - Purine Analogs albuterol HFA (PROVENTIL HFA, VENTOLIN HFA) 90 mcg/actuation inhaler Inhale 2 Puffs as instructed every 4 hours as needed for wheezing/shortness of breath. Asthma/COPD Therapy - Beta 2-Adrenergic Agents, Inhaled, Short Acting alcohol swabs (ALCOHOL PREP PADS) Use as directed to check glucose levels up to seven times daily. Antiseptic - Alcohols Blood Pressure Test Kit-Large (QUICK RESPONSE BP MONITOR) Use as directed Medical Supplies and DME - Miscellaneous Other blood sugar diagnostic (BLOOD GLUCOSE TEST) test strip Use with blood glucose test three times a day. Medical Supplies and DME - Blood Glucose Tests blood sugar diagnostic test strip Use as directed to check glucose levels up to seven times daily. Medical Supplies and DME - Blood Glucose Tests Blood-Glucose Meter (BLOOD GLUCOSE MONITORING) monitoring kit Use as instructed. Medical Supplies and DME - Glucose Monitoring Test Supplies Blood-Glucose Sensor (FREESTYLE ELIANE 3 SENSOR) osman Use as instructed. Medical Supplies and DME - Glucose Monitoring Test Supplies docusate sodium (COLACE) 100 mg capsule Take 2 capsules by mouth at bedtime as needed for constipation. Laxative - Surfactant ibuprofen (MOTRIN) 600 mg tablet Take 1 tablet by mouth every 6 hours as needed for pain. NSAID Analgesics (QUILES Non-Specific) - Propionic Acid Derivatives Insulin Syringe-Needle U-100 1 mL 30 gauge x 5/16 syrg USE THREE TIMES A DAY DIRECTED Medical Supplies and DME - Insulin [place]-Syringes and Admin Supplies Lancets Use as instructed to check BG three times daily Medical Supplies and DME - Glucose Monitoring Test Supplies Lancets lancets Use as directed to check glucose levels up to seven times daily. Medical Supplies and DME - Glucose Monitoring Test Supplies levothyroxine (SYNTHROID) 175 mcg tablet Take 1 tablet by mouth daily at 6 am. Thyroid Hormones - Synthetic T4 (Thyroxine) Norethindrone, Contraceptive, 0.35 mg tablet Take 1 tablet by mouth once daily. Contraceptive Oral - Progestin polyhexam biguan-gauze bandage 0.2 %- 1/2 X 3 feet strp Apply 1 Each to affected area once daily. Pack wound DIRECTED. Wound Care - Dressings VIT [id number] ORAL Take by mouth. Vitamins and Minerals Past History, Medications, Allergies PAST SURGICAL HISTORY Procedure Laterality Date SECTION HX CHOLECYSTECTOMY INCISION AND DRAINAGE 2020 breast abscess MYRINGOTOMY x4 TONSILLECTOMY AND ADENOIDECTOMY HX ALLERGIES Allergen Reactions Amoxicillin Rash Mold Rash Red Dye Rash Wheat Rash FAMILY HISTORY Problem Relation Age of Onset Diabetes Father Hypertension Father Asthma Mother Thyroid Mother other (PCOS) Mother Thyroid Sister Allergies Sister other (PCOS) Sister Cataract Maternal Grandmother Glaucoma Maternal Grandmother Heart Attack Maternal Grandmother Diabetes Maternal Grandfather Heart Maternal Grandfather Cancer Paternal Grandmother Heart Paternal Grandfather No Known Problems Daughter Social History Tobacco Use Smoking status: Former Types: Cigarettes Quit date: 10/22/2018 Years since quittin.4 Smokeless tobacco: Never Vaping Use Vaping Use: Never used Substance Use Topics Alcohol use: Not Currently Drug use: Not Currently Types: Marijuana Comment: no use since 2018 Review of Systems Answers submitted by the patient for this visit: Endocrine Review of Systems (Submitted on 03/21/2024) Fatigue: Yes Night sweats: No Recent unintentional weight change: No Skin Color Changes: No Post-Nasal Drip: No Thyroid Pain (lower neck): No Trouble Swallowing: No Vision Disturbance: No Chest pain: No Leg Swelling: Yes Blood Clots?: No Leg Pain while walking?: No Difficulty Breathing?: No Heartburn: Yes Nausea: Yes Vomiting: No Diarrhea: No Constipation: Yes Abdominal pain: No Bone Pain?: No Muscle aches: No Muscle weakness: No Joint pain or stiffness: No Headaches: No Dizziness: No Numbness?: No Urgency to Urinate?: No Increased Urination: No Slow or Small Urine Stream?: No Are your menstrual cycles regular?: No Are your menstrual cycles irregular?: Yes Have your menstrual cycles stopped?: No Flushing: No Hot Flashes?: No Increased Thirst: No Change in Body Hair?: No Cold Intolerance: No Heat Intolerance: No Physical examination VIDEO EXAM: (if done, performed via video enabled technology) GENERAL: alert and appropriate, in no distress, well-hydrated, well nourished, interactive EYES: EOMI NECK: thyroid without obvious enlargement/mass RESPIRATORY: breathing non-labored OP: clear, mmm EXTREMITIES: no tremor Previous Laboratory Results LABS Glucose (mg/dL) Date Value 02/24/2024 231 02/24/2024 222 02/23/2024 340 05/27/2019 129 05/25/2019 156 Potassium (mmol/L) Date Value 02/24/2024 4.5 05/27/2019 4.0 Sodium (mmol/L) Date Value 02/24/2024 137 02/24/2024 137 02/23/2024 133 05/27/2019 138 05/25/2019 135 Chloride (mmol/L) Date Value 02/24/2024 100 02/24/2024 101 02/23/2024 98 05/27/2019 106 05/25/2019 103 CO2 (mmol/L) Date Value 02/24/2024 23 02/24/2024 21 02/23/2024 21 05/27/2019 17 05/25/2019 16 Creatinine (mg/dL) Date Value 02/24/2024 0.77 02/24/2024 0.50 02/23/2024 0.41 05/27/2019 0.50 05/25/2019 0.51 BUN (mg/dL) Date Value 02/24/2024 9 02/24/2024 8 02/23/2024 7 05/27/2019 10 05/25/2019 12 Anion Gap (mmol/L) Date Value 02/24/2024 14 02/24/2024 15 02/23/2024 14 05/27/2019 15 05/25/2019 16 Calcium (mg/dL) Date Value 05/27/2019 9.8 05/25/2019 10.3 Calcium, Total (mg/dL) Date Value 02/24/2024 9.1 02/24/2024 8.5 02/23/2024 8.8 eGFR- (no units) Date Value 05/27/2019 >60 05/25/2019 >60 eGFR-All Other Races (.) Date Value 05/27/2019 >60 05/25/2019 >60 Estimated Glomerular Filtration Rate (mL/min/1.73m ) Date Value 02/24/2024 109 02/24/2024 132 02/23/2024 138 ALT (U/L) Date Value 02/24/2024 10 02/24/2024 8 02/23/2024 11 05/27/2019 10 05/25/2019 15 TSH Date Value Ref Range Status 12/03/2023 5.160 (H) 0.270 - 4.200 mIU/L Final Comment: If the patient is , TSH reference range varies by gestational period: First Trimester (weeks 9-12): 0.180-2.990 mIU/L Second Trimester: 0.110-3.980 mIU/L Third Trimester: 0.480-4.710 mIU/L Jose Torres, et al. A Practical Approach for the Verifications and Determination of Site- and Trimester-Specific Reference Intervals for Thyroid Function tests in . Thyroid, 2019:29:3:412-420. Reymundo E, et al. 2017 Guidelines of the [place] [employer] for the Diagnosis and Management of Thyroid Disease during and the . Thyroid, 2017:27:3:315-389. 10/09/2023 6.670 (H) 0.270 - 4.200 mIU/L Final Comment: If the patient is , TSH reference range varies by gestational period: First Trimester (weeks 9-12): 0.180-2.990 mIU/L Second Trimester: 0.110-3.980 mIU/L Third Trimester: 0.480-4.710 mIU/L Jose Torres et al. A Practical Approach for the Verifications and Determination of Site- and Trimester-Specific Reference Intervals for Thyroid Function tests in . Thyroid, 2019:29:3:412-420. Reymundo Smith et al. 2017 Guidelines of the [place] [employer] for the Diagnosis and Management of Thyroid Disease during and the . Thyroid, 2017:27:3:315-389. 2023 2.980 0.270 - 4.200 mIU/L Final Comment: If the patient is , TSH reference range varies by gestational period: First Trimester (weeks 9-12): 0.180-2.990 mIU/L Second Trimester: 0.110-3.980 mIU/L Third Trimester: 0.480-4.710 mIU/L Jose Torres et al. A Practical Approach for the Verifications and Determination of Site- and Trimester-Specific Reference Intervals for Thyroid Function tests in . Thyroid, 2019:29:3:412-420. Reymundo Smith et al. 2017 Guidelines of the [place] [employer] for the Diagnosis and Management of Thyroid Disease during and the . Thyroid, 2017:27:3:315-389. Impression/Recommendations IMPRESSION Rosa Cervantes is a 28 year old here for evaluation of DM Type 2 now . ASSESSMENT/PLAN: 1. Type 2 diabetes mellitus with hyperglycemia, with long-term current use of insulin (HCC) - ICD9: 250.00, 790.29, V58.67, ICD10: E11.65, Z79.4 (primary diagnosis) - Uncontrolled - Control undetermined, due for labs - Increase Insulin glargine (Lantus/Basaglar/Toujeo) - Blood glucose monitoring on a continuous glucose monitoring schedule - Counseled on healthy diet and regular exercise - Follow up in 3 months, sooner should any other issues arise. - HEMOGLOBIN A1C - PEN NEEDLE, DIABETIC 32 GAUGE X 5/32 - ALBUMIN/CREATININE RATIO, URINE 2. Acquired hypothyroidism - ICD9: 244.9, ICD10: E03.9 - Instructed patient on importance of taking on an empty stomach either first thing in the morning or at bedtime. - check TSH and free T4 today - continue current dose of levothyroxine - THYROID STIMULATING HORMONE - T4 FREE/FREE THYROXINE RECOMMENDATIONS: 1. Glycemic control: Target HbA1C is less than 7.0% per ADA guidelines. She is /pumping, will continue with insulin therapy. BGs are not controlled per patient. Will increase basal for now. I have asked her to send me readings in a few weeks or restart using the eliane and connect with the office. Get repeat labs Plan Increase Glargine to 52 units daily Continue Humalog 12 units before each meal plus sliding scale: If Blood Glucose (mg/dL) is <110 Give 0 units 111-150 Give 0 units 151-200 Give 2 unit 201-250 Give 4 units 251-300 Give 6 units 301-350 Give 8 units 351-400 Give 10 units >400 Call physician. Restart the eliane - let us know if you have any issues Send me readings in 1-2 weeks Get blood work when you can Follow up in 3 months with and [address] Weems The patient was reminded to check their blood glucose as directed and to record the data in a logbook. This patient was advised to bring their logbook to each office visit. I recommended at least 150 minutes per week of moderate physical activity, such as walking and to reduce carbohydrates and overall caloric intake. 2. Hypertension/BP control: BP goal for patients with diabetes is 130/80. 3. Lipids: Target LDL cholesterol in patients with diabetes is less than 100, less than 70 if patient has overt CVD. Several studies have shown cardiovascular benefits of statin therapy in all patients with diabetes over age 40 with at least 1 CVD risk factor. No results found for: CHOL , HDL , LDL , TG 4. Nephropathy screening: Annual measurement of urine albumin excretion is recommended in patients with diabetes. Protein, Urine (mg/dL) Date Value 12/22/2023 neg Creatinine, Ur Random (UCRR) (mg/dL) Date Value 08/04/2023 256.6 05/25/2019 113.7 -- This patient does not have microalbuminuria and is not on PERRY-I or ARB therapy. 5. Ophthalmology: Annual dilated eye exams are recommended for patients with type 1 and type 2 diabetes. -- This patient is not up to date with their annual eye exam and was referred to an plain goods hemmer at this visit. Patient to continue to follow up with his PCP and with other consultants regarding his other medical problems. Any part of this document that has been added/copied & pasted from other documents has been reviewed for accuracy and updated as appropriate at the time of the patient encounter Belinda Garrido APRN.HEREDITARY CANCER PROGRAM COORDINATOR documented in this encounter [facility] 02-25-2024 Note [facility] 02-25-2024 Note [facility] 02-25-2024 Note [facility] 02-25-2024 Note [facility] 02-25-2024 Note [facility] 02-24-2024 Note [facility] 02-24-2024 Note [facility] 02-23-2024 Note [facility] 02-23-2024 Telephone encounter Note Left voicemail for patient to call [phone] to schedule with HEREDITARY CANCER PROGRAM COORDINATOR. Advised patient that she will need to see HEREDITARY CANCER PROGRAM COORDINATOR in the interim. [facility] 02-23-2024 Miscellaneous Notes Left voicemail for patient to call [phone] to schedule with HEREDITARY CANCER PROGRAM COORDINATOR. Advised patient that she will need to see HEREDITARY CANCER PROGRAM COORDINATOR in the interim. documented in this encounter [facility] 02-23-2024 Note [facility] 02-22-2024 Telephone encounter Note Spoke with nurse at [facility] and they are able to see patient. Order and records faxed to [phone]. They will call patient to schedule. Patient called and notified that Wound Center will be calling her to schedule an appointment. Lachelle Barry RN [facility] 02-22-2024 Miscellaneous Notes Spoke with nurse at [facility] and they are able to see patient. Order and records faxed to [phone]. They will call patient to schedule. Patient called and notified that Wound Center will be calling her to schedule an appointment. Lachelle Barry RN ordered Left message at [facility] wound center. Need to find out if they will see this patient. Can you place consult order for wound care in Dr. Man's absence? Lachelle Barry RN Images from the original note were not included. Nolvia Man MD [facility] ObProperty Assessment Monitor [place] Patient needs to be seen with [place] wound care if able. 1 cm opening in incision requiring packing.Insulin dependent DM poorly controlled. Please try and schedule documented in this encounter [facility] 02-22-2024 Telephone encounter Note ordered [facility] 02-22-2024 Telephone encounter Note Left message at [facility]. Need to find out if they will see this patient. Can you place consult order for wound care in Dr. Man's absence? Lachelle Barry RN [facility] 02-22-2024 Telephone encounter Note Images from the original note were not included. Nolvia Man MD [facility] Ob-Property Assessment Monitor [place] Patient needs to be seen with [place] wound care if able. 1 cm opening in incision requiring packing.Insulin dependent DM poorly controlled. Please try and schedule [facility] 02-19-2024 Note [facility] 02-19-2024 History of Presen t illness Narrative Rosa Cervantes is a 28 year old female who presents for problem visit packing change HPI: Packing placed on 02/15. Patient was unable to obtain supplies to continue at home. No fever or chills. No bleeding. States she is taking her insulin however does not have the correct supplies for Quikpen or sufficient supply of insulin vials. Does have a VV with endo scheduled OB History T0 L2 SAB0 IAB0 Ectopic0 Multiple0 Live Births2 Property Assessment Monitor History LMP: 02/02/2024 (Approximate), Having periods Age at Menarche: Age at First : Age at Menopause: Property Assessment Monitor History Comments: Sexual Activity: Not Asked; Male; not asked Contraception: No contraception data on record PAST MEDICAL HISTORY Diagnosis Date Abnormal Pap smear of cervix Anemia Asthma has not used an inhaler since age 18 Breast abscess Cellulitis 06/2022 breast Complication of anesthesia has issues with breathing after being woken-uses Albuterol Depression Diabetes mellitus (HCC) IDDM Genital herpes Gestational diabetes History of herpes genitalis 05/23/2019 Hypothyroid PCOS (polycystic ovarian syndrome) depression PAST SURGICAL HISTORY Procedure Laterality Date SECTION HX CHOLECYSTECTOMY INCISION AND DRAINAGE 2020 breast abscess MYRINGOTOMY x4 TONSILLECTOMY AND ADENOIDECTOMY HX FAMILY HISTORY Problem Relation Age of Onset Diabetes Father Hypertension Father Asthma Mother Thyroid Mother other (PCOS) Mother Thyroid Sister Allergies Sister other (PCOS) Sister Cataract Maternal Grandmother Glaucoma Maternal Grandmother Heart Attack Maternal Grandmother Diabetes Maternal Grandfather Heart Maternal Grandfather Cancer Paternal Grandmother Heart Paternal Grandfather No Known Problems Daughter Social History Tobacco Use Smoking status: Former Types: Cigarettes Quit date: 10/22/2018 Years since quittin.3 Smokeless tobacco: Never Vaping Use Vaping Use: Never used Substance Use Topics Alcohol use: Not Currently Drug use: Not Currently Types: Marijuana Comment: no use since 2019 Current Outpatient Medications Medication Sig polyhexam biguan-gauze bandage 0.2 %- 1/2 X 3 feet strp Apply 1 Each to affected area once daily. Pack wound DIRECTED. acyclovir (ZOVIRAX) 400 mg tablet Take 1 tablet by mouth two times a day. Norethindrone, Contraceptive, 0.35 mg tablet Take 1 tablet by mouth once daily. Blood-Glucose Meter (BLOOD GLUCOSE MONITORING) monitoring kit Use as instructed. blood sugar diagnostic (BLOOD GLUCOSE TEST) test strip Use with blood glucose test three times a day. Lancets Use as instructed to check BG three times daily insulin lispro (HUMALOG KWIKPEN) 100 unit/mL Inject 13 Units subcutaneously 3 times a day with meals. levothyroxine (SYNTHROID) 175 mcg tablet Take 1 tablet by mouth daily at 6 am. acetaminophen (TYLENOL) 500 mg tablet Take 2 tablets by mouth every 6 hours as needed for pain. docusate sodium (COLACE) 100 mg capsule Take 2 capsules by mouth at bedtime as needed for constipation. ibuprofen (MOTRIN) 600 mg tablet Take 1 tablet by mouth every 6 hours as needed for pain. insulin glargine 100 unit/mL (3 mL) Inject 34 Units subcutaneously daily at bedtime. Blood Pressure Test Kit-Large (QUICK RESPONSE BP MONITOR) Use as directed Insulin Syringe-Needle U-100 1 mL 30 gauge x 5/16 syrg USE THREE TIMES A DAY DIRECTED albuterol HFA (PROVENTIL HFA, VENTOLIN HFA) 90 mcg/actuation inhaler Inhale 2 Puffs as instructed every 4 hours as needed for wheezing/shortness of breath. blood sugar diagnostic test strip Use as directed to check glucose levels up to seven times daily. Lancets lancets Use as directed to check glucose levels up to seven times daily. alcohol swabs (ALCOHOL PREP PADS) Use as directed to check glucose levels up to seven times daily. VIT 25-XJPT-SZDFE-DHA ORAL Take by mouth. Blood-Glucose Sensor (FREESTYLE ELIANE 3 SENSOR) osman Use as instructed. No current facility-administered medications for this visit. Allergies As of Date: 02/19/2024 Allergen Noted Reaction AMOXICILLIN 05/23/2019 Rash MOLD 05/23/2019 Rash RED DYE 05/23/2019 Rash WHEAT 07/18/2014 Rash Fully Assessed 02/19/2024 REVIEW OF SYSTEMS Abdomen: No bloating, early satiety, indigestion, or increased flatulence. No abdominal pain, nausea, vomiting, diarrhea, or constipation. Bladder: No dysuria, gross hematuria, urinary frequency, urinary urgency, or incontinence. Breast: No breast lumps, nipple d/c, overlying skin changes, redness or skin retraction. Expanded ROS: N/A Allergies and current medication updated:Yes EXAM: BP 112/62 Wt 230 lb (104.3kg) LMP 02/02/2024 GENERAL: pleasant, female in no apparent distress HEENT: Normocephalic, atraumatic, mucus membranes moist, and no lesions NECK: full range of motion DERMATOLOGY: Normal, without lesions, non-icteric, and non-hirsute BREAST: deferred CHEST: Normal inspiratory effort ABDOMEN: soft, non-tender, no masses, pannus moderate, and incision open in the midline. One cm. No erythema. Draine copious pus. No bleeding. Packing removed and replaced. PELVIC: deferred BIMANUAL: deferred NEURO: alert and oriented x3,exam grossly non-focal EXTREMITIES: normal ASSESSMENT AND PLAN: Encounter Diagnosis ICD-10-CM 1. Poorly controlled diabetes mellitus (HCC) E11.65 2. Non-healing surgical wound, subsequent encounter T81.89XD Consult placed for wound care Nolvia Man MD documented in this encounter [facility] 02-19-2024 Telephone encounter Note Patient returned call and is scheduled for 3 pm [facility] 02-19-2024 Miscellaneous Notes Patient returned call and is scheduled for 3 pm Left message to call office. Please offer her appointment at 3 with JG, or 2 pm with DM for packing change. Lachelle Barry RN Pt should be seen to have wound packed then likely needs to be set up with wound clinic as she has multiple co-morbidities and healing may take some time. Patient had C/S on 01/05/24 and was seen in the office on 02/15 by LYNN for visit. Patient had opening in her wound and was packed in office with 1/4 packing tape. An rx for the packing gauze was originally sent to [facility] and they told patient that they do not carry it and to try [facility]. Rx was sent to [facility] and patient calling today to tell us [facility] does not carry it and they told her to call the office and see if we have it in office that we can give her. Patient is supposed to change everyday and packing has been in since 02/15. Ok to just give her packing from the office? Lachelle Barry RN documented in this encounter [facility] 02-19-2024 Telephone encounter Note Left message to call office. Please offer her appointment at 3 with JG, or 2 pm with DM for packing change. Lachelle Barry RN [facility] 02-19-2024 Telephone encounter Note Pt should be seen to have wound packed then likely needs to be set up with wound clinic as she has multiple co-morbidities and healing may take some time. [facility] 02-19-2024 Telephone encounter Note Patient had C/S on 01/05/24 and was seen in the office on 02/15 by LYNN for visit. Patient had opening in her wound and was packed in office with 1/4 packing tape. An rx for the packing gauze was originally sent to [facility] and they told patient that they do not carry it and to try [facility]. Rx was sent to [facility] and patient calling today to tell us [facility] does not carry it and they told her to call the office and see if we have it in office that we can give her. Patient is supposed to change everyday and packing has been in since 02/15. Ok to just give her packing from the office? Lachelle Barry RN [facility] 02-18-2024 Telephone encounter Note Filed Humphrey Frye MD [facility] 02-18-2024 Miscellaneous Notes Filed Humphrey Frye MD Patient was unable to get the packing gauze that was prescribed on 02/15 from [facility]. Patient was told to try [facility] in [place]. Please file pended Rx with updated pharmacy. Lachelle Barry RN documented in this encounter [facility] 02-18-2024 Telephone encounter Note Patient was unable to get the packing gauze that was prescribed on 02/15 from [facility]. Patient was told to try [facility] in [place]. Please file pended Rx with updated pharmacy. Lachelle Barry RN [facility] 02-16-2024 History of Presen t illness Narrative Workers Compensation Coordinator offered: Patient declines. VISIT Rosa Cervantes is a 28 year old year old here for visit. Delivery Summary: c/s 01/05/2024 ROS/ Recovery: Feeding: Breast and bottle feeding problems: None Menses since delivery: clots Menstrual pattern prior to : Regular periods [place] since delivery: Resumed Depression: denies, admits to symptoms of depression. Denies SI/HI and feels that she is doing OK. OB Depression and Anxiety Screening- This Encounter (since 02/15/2024) Over the past 2 weeks have you felt down, depressed, or hopeless? Positive - Further Testing Indicated Over the past two weeks, have you felt little interest or pleasure in doing things? Negative I have been able to laugh and see the funny side of things. Not quite so much now I have looked forward with enjoyment to things. Rather less than I used to I have blamed myself unnecessarily when things went wrong. Yes, some of the time I have been anxious or worried for no good reason. Yes, sometimes I have felt scared or panicky for no good reason. No, not much Things have been getting on top of me. Yes, sometimes I haven't been coping as well as usual I have been so unhappy that I have had difficulty sleeping. Not very often I have felt sad or miserable. Not very often I have been so unhappy that I have been crying. Only occasionally The thought of harming myself has occurred to me. Never [place] Depression Scale Total 12 Feeling nervous, anxious or on edge 2-More than half the days Not being able to stop or control worrying 2-More than half the days Anxiety Pre-Screening Total (If >/= 3 additional questions will be reviewed) 4 Worrying too much about different things 3-Nearly every day Trouble relaxing 1-Several days Being so restless that it is hard to sit still 0-Not al all Becoming easily annoyed or irritable 2-More than half the days Feeling afraid, as if something awful might happen 1-Several days Anxiety (KESHAV) Full Screening Total 11 Emotional support: Yes Bowel symptoms: Negative for abdominal discomfort, blood in stools or black stools and change in bowel habits Abdomen: states inside there are fluid pockets and it is filled with pus, currently taking antibiotics Bladder symptoms: No dysuria, gross hematuria, urinary frequency, urinary urgency, or incontinence Other issues: None Last Pap: 2022 normal HPV: N/A PAST MEDICAL HISTORY Diagnosis Date Abnormal Pap smear of cervix Anemia Asthma has not used an inhaler since age 18 Breast abscess Cellulitis 06/2022 breast Complication of anesthesia has issues with breathing after being woken-uses Albuterol Depression Diabetes mellitus (HCC) IDDM Genital herpes Gestational diabetes History of herpes genitalis 05/23/2019 Hypothyroid PCOS (polycystic ovarian syndrome) depression PAST SURGICAL HISTORY Procedure Laterality Date SECTION HX CHOLECYSTECTOMY INCISION AND DRAINAGE 2020 breast abscess MYRINGOTOMY x4 TONSILLECTOMY AND ADENOIDECTOMY HX FAMILY HISTORY Problem Relation Age of Onset Diabetes Father Hypertension Father Asthma Mother Thyroid Mother other (PCOS) Mother Thyroid Sister Allergies Sister other (PCOS) Sister Cataract Maternal Grandmother Glaucoma Maternal Grandmother Heart Attack Maternal Grandmother Diabetes Maternal Grandfather Heart Maternal Grandfather Cancer Paternal Grandmother Heart Paternal Grandfather No Known Problems Daughter Social History Tobacco Use Smoking status: Former Types: Cigarettes Quit date: 10/22/2018 Years since quittin.3 Smokeless tobacco: Never Vaping Use Vaping Use: Never used Substance Use Topics Alcohol use: Not Currently Drug use: Not Currently Types: Marijuana Comment: no use since 2018 PHYSICAL EXAMINATION: BP 100/60 Wt 228 lb 6.4 oz (103.6kg) LMP 02/02/2024 GENERAL: pleasant, female in no apparent distress HEENT: Normocephalic, atraumatic, mucus membranes moist, and no lesions NECK: Supple, full range of motion, no adenopathy, and thyroid normal DERMATOLOGY: Normal, without lesions, non-icteric, and non-hirsute BREAST: soft, non-tender, symmetric, no dominant mass, normal nipple-areolar complex, no lymphadenopathy, and no nipple discharge CHEST: Normal inspiratory effort ABDOMEN: soft, non-tender, and no masses. INCISION: 1cm opening that tracks. Fascia intact. Serosanguinous drainage. Wound packed with 1/4in packing tape. PELVIC: external genitalia normal, normal Bartholin's glands, urethra, [place]'s glands, no vulvar lesions, no cervical lesions, good vaginal support, physiologic discharge present, normal appearing perineal body and perianal region BIMANUAL: uterus normal size, shape and consistency, no adnexal masses, and non-tender NEURO: alert and oriented x3,exam grossly non-focal EXTREMITIES: normal ASSESSMENT AND PLAN: 28 year old status post CS with normal course. and course complicated by wound infection. Contraception plan: norethindrone - patient to call when not or at 6months PP Follow up: Wound - incision packed. Advised to pack daily & patient's aunt is a wound care nurse. Follow up 1 week or PRN. Complete antibiotics as given by [facility]. ED. No signs infection today. DM - encouraged patient to have good control to help with wound healing. Follows with . Humphrey Frye MD documented in this encounter [facility] 02-16-2024 Note [facility] 02-05-2024 Note [facility] 02-05-2024 History of Presen t illness Narrative Patient came in with complaints of possible infection and wanted her blood sugar checked. Patient has supplies at the pharmacy that has not been picked up yet. Patient is not checking her own blood sugar. Patient does not seem to understand the gravity of maintaining an appropriate blood sugar. Patient's blood sugar is 474 here. Upon looking at patient's paperwork patient had a white count over 15 - 2 days ago and was in the hospital. Patient left AMA because she did not want an IV to receive the care she needed. At this time patient needs to report back to the emergency room and get the proper care and treatment that she needs for what she has going on. Patient said she will ask her mother to take her. Patient did not want to squad called. documented in this encounter [facility] 02-04-2024 Telephone encounter Note Spoke with patient, called to see if she has picked up her testing supplies, patient advises that her mom is going to go tonight after work to see if it is in the drop box. Advised patient that I would call her back on 02/07 to see if she has picked up and if she is testing. Patient needs scheduled with Dr. Weems once she starts testing BG. [facility] 02-04-2024 Miscellaneous Notes Spoke with patient, called to see if she has picked up her testing supplies, patient advises that her mom is going to go tonight after work to see if it is in the drop box. Advised patient that I would call her back on 02/07 to see if she has picked up and if she is testing. Patient needs scheduled with Dr. Weems once she starts testing BG. documented in this encounter [facility] 02-03-2024 Note HNO ID: [id number] Author: CASH QUIGLEY RN Service: Obstetrics Author Type: Registered Nurse Type: Nursing Progress Note Filed: 02/03/2024 09:14 Note Text: Pt. Refused further treatment and left against medical advice for treatment at this time. [facility] 02-03-2024 Note [facility] 02-02-2024 Telephone encounter Note Patient intends on following but has not been checking blood sugars. Testing supplies are in storage, she took off sensor cause it was irritating her skin. Patient was instructed that supplies would be sent and once she started testing to let us know via mychart and an appointment would be set up. [facility] 02-02-2024 Miscellaneous Notes Patient intends on following but has not been checking blood sugars. Testing supplies are in storage, she took off sensor cause it was irritating her skin. Patient was instructed that supplies would be sent and once she started testing to let us know via mychart and an appointment would be set up. Rx sent Pt did not show for appointment on Thursday. Does she intend on following here? If so- please contact and schedule next available with HEREDITARY CANCER PROGRAM COORDINATOR Thanks LIZBETH documented in this encounter [facility] 02-02-2024 Telephone encounter Note Rx sent Pt did not show for appointment on Thursday. Does she intend on following here? If so- please contact and schedule next available with HEREDITARY CANCER PROGRAM COORDINATOR Benigno NIEVES [facility] 02-02-2024 Telephone encounter Note Scheduling and nurse spoke to patient and she stated that she has not been checking her sugars, her supplies are in storage and she took off Eliane. Patient was instructed to start regular testing, prescription sent and advised to schedule after she has some data for provider to view. [facility] 02-02-2024 Miscellaneous Notes Scheduling and nurse spoke to patient and she stated that she has not been checking her sugars, her supplies are in storage and she took off Eliane. Patient was instructed to start regular testing, prescription sent and advised to schedule after she has some data for provider to view. documented in this encounter [facility] 01-27-2024 Telephone encounter Note Haylee spoke with Sruthi and she reports that she has appt to go out to see patient this coming up Thursday02/01/24 to see about setting up patient with case management services. [facility] 01-27-2024 Miscellaneous Notes Haylee spoke with Sruthi and she reports that she has appt to go out to see patient this coming up Thursday02/01/24 to see about setting up patient with case management services. Haylee notes patient has psych virtual appt scheduled with [place] provider. Hayele tried call again to Matthew [facility]. The call rings like the sound of a fax machine. Sw reviewed number and tried call again and same response. Message to call office to schedule, Sw tried call to [facility]. No answer and message states unable to leave message. Message to call office to schedule. [facility] and [facility] reports that she contracts with [facility] for service coordination. Alessandra notes that she will check with Aj to make sure that they received and are reaching out to patient. Haylee provided Alessandra with this Sw direct contact number to reach out to Sw to update on referral. Message to call office to schedule. This Sw [facility] social work administrator. Discussed this Sw recently assisted with referral to [facility] and assisted with call to [facility] to note needing further assistance with housing support. Sw making sure that [facility] referral is scanned to patient chart. This Sw is also checking with Nurse Vilma, [facility] to see about patient scheduling for order in the system for Women[facility] Behavioral Health. Will see what Nurse Vilma says about Behavioral Health appt. documented in this encounter [facility] 01-25-2024 Telephone encounter Note Haylee notes patient has psych virtual appt scheduled with [place] provider. [facility] 01-22-2024 Telephone encounter Note Sw tried call again to [facility]. The call rings like the sound of a fax machine. Sw reviewed number and tried call again and same response. [facility] 01-22-2024 Telephone encounter Note Message to call office to schedule, [facility] 01-21-2024 Miscellaneous Notes This note was copied from a baby's chart. Met with parents at bedside to discuss needs. Rosa says she has been expressing milk every 6 hours. Encouraged every 3 hour expression or 8 pumps/24 hrs, reviewed supply and demand. Asked Rosa if she wanted to place Azrael to breast and she said she wanted to try. Reviewed positioning, latch, watching for swallowing. awake and alert. Rosa's nipples are flat and he had difficulty latching so 16 mm nipple shield and tube/syringe placed with improvement in nursing. Supplemented at breast with 15 cc formula via syringe with frequent suck/swallowing noted. Encouraged to follow up nursing with bottle supplementation and to cont to express milk q3hrs. documented in this encounter [facility] 01-20-2024 Telephone encounter Note Haylee tried call to [facility]. No answer and message states unable to leave message. [facility] 01-19-2024 Telephone encounter Note Message to call office to schedule. [facility] 01-14-2024 Telephone encounter Note [facility] and she reports that she contracts with Aj for service coordination. Alessandra notes that she will check with Aj to make sure that they received and are reaching out to patient. Sw provided Alessandra with this Sw direct contact number to reach out to Sw to update on referral. [facility] 01-14-2024 Telephone encounter Note Message to call office to schedule. T [facility] 01-13-2024 Telephone encounter Note This Sw [facility] social work administrator. Discussed this Sw recently assisted with referral to [facility] and assisted with call to [facility] to note needing further assistance with housing support. Sw making sure that [facility] referral is scanned to patient chart. This Sw is also checking with Nurse Vilma, [facility] to see about patient scheduling for order in the system for [facility]. Will see what Nurse Vilma says about Behavioral Health appt. [facility] 01-12-2024 Note [facility] 01-12-2024 History of Presen t illness Narrative EARLY VISIT Rosa Cervantes is a 28 year old here for 1 week visit. Delivery Summary: c/s 01/04/2024 ROS: General: Denies any fever or chills Hypertension Screening: Headache? Yes. Was it successfully treated with Tylenol? sometimes Visual Changes? No Epigastric Pain? A little bit Increased Swelling? Yes, right side more than left Taking any BP medications at home? No If applicable, monitoring BP at home? (If Yes, include results) NA Mood: depressed Depression: denies, admits to symptoms of depression. OB Depression and Anxiety Screening- This Encounter (since 01/11/2024) Over the past 2 weeks have you felt down, depressed, or hopeless? Positive - Further Testing Indicated Over the past two weeks, have you felt little interest or pleasure in doing things? Negative I have been able to laugh and see the funny side of things. As much as I always could I have looked forward with enjoyment to things. As much as I ever did I have blamed myself unnecessarily when things went wrong. Yes, most of the time I have been anxious or worried for no good reason. Yes, sometimes I have felt scared or panicky for no good reason. Yes, sometimes Things have been getting on top of me. Yes, sometimes I haven't been coping as well as usual I have been so unhappy that I have had difficulty sleeping. Not at all I have felt sad or miserable. No, not at all I have been so unhappy that I have been crying. Yes, quite often The thought of harming myself has occurred to me. Never [place] Depression Scale Total 11 Feeling nervous, anxious or on edge 1-Several days Not being able to stop or control worrying 1-Several days Anxiety Pre-Screening Total (If >/= 3 additional questions will be reviewed) 2 Feeding: pumping problems: None Bladder: No dysuria, gross hematuria, urinary frequency, urinary urgency, or incontinence Bowel symptoms: Negative for abdominal discomfort, blood in stools or black stools and change in bowel habits Abdomen: She reports no incisional redness, tenderness, erythema Bleeding: light flow Bottom and Perineum: No issues Sleep: no sleep concerns, feels rested [place] since delivery: Not resumed Emotional support: Yes Exercise: N/A Other issues: pp depression and nerves PHYSICAL EXAMINATION: BP 110/76 Wt 252 lb (114.3 kg) LMP 05/06/2023 (Exact Date) Yes BMI 44.64 kg/m General: pleasant,female in no apparent distress, A&O x 3. Skin warm and intact. Breast: Deferred Abdomen: Deferred /Incision: No incisional redness, swelling, or drainage Pelvic: Deferred Bimanual: Deferred ASSESSMENT AND PLAN: 28 year old status post CS with and course complicated by in NICU and maternal DM Contraception plan: undecided . Reinforced 6-week pelvic rest. Encouraged condom usage should patient deviate. Education: resources provided - see MA/RN note Depression - referral to behavioral health clinic as patient with h/o depression and has tried different medications in the past. Reviewed SI/HI precautions. DM - follows with Follow up: Return to Clinic for 6 week visit and as needed Humphrey Frye MD documented in this encounter [facility] 01-08-2024 Note [facility] 01-08-2024 Note [facility] 01-08-2024 Note [facility] 01-08-2024 Note [facility] 01-07-2024 Miscellaneous Notes Left voicemail with patient that her appointment for 01/11/2024 has been canceled due to her hospitalization . Advised patient to call [phone]chedule with Dr. Weems in 4 weeks. documented in this encounter [facility] 01-07-2024 Note [facility] 01-06-2024 Note [facility] 01-05-2024 Note HNO ID: [id number] Author: THERESA GALE LGC Service: ? Author Type: Genetic Counselor Type: Progress Notes Filed: 01/05/2024 14:56 Note Text: Rosa's sample is requested for her son's genome sequencing test. Order placed in inpatient chart. [facility] 01-05-2024 History of Presen t illness Narrative Lisas sample is requested for her son's genome sequencing test. Order placed in inpatient chart. documented in this encounter [facility] 01-05-2024 History of Past i llness Narrative Problem Noted Date Diagnosed Date Resolved Date delivery delivered 01/05/2024 01/12/2024 34 weeks gestation of 01/04/2024 01/12/2024 Supervision of high risk pre gnancy in third trimester 12/29/2023 01/12/2024 Last Assessment & Plan: Continue routine OB care in [place]; MFM co-management. Third trimester counseling was provided. Polyhydramnios 12/15/2023 01/12/2024 Overview: DEIDRA 31 on 12/15/23 Supervision of high risk pre gnancy due to social problems, first trimester 07/01/2023 024 Overview: 07/01/2023Father of baby is not the father of her other child. He is currently incarcerated and is planning on getting out July 15. She states that he did a crime before they met in January and is serving the time now. She is currently living with her sister because I was thrown out of my previous house . She has food insecurity and lacks reliable transportation. I have offered patient a social work referral and she accepts. I have contacted Maynor Powell and she is planning on being present at the patient's new OB appointment. TKRN with history of ce sarean section, antepartum 07/01/2023 01/12/2024 Overview: 07/01/2023atipito has a history of a at 36 weeks 1 day in 2018 at [place]. was due to failed induction due to bradycardia in the setting of poorly controlled diabetes. TKRN UTI (urinary tract infection ) in , antepartum 07/01/2023 07/06/2023 Overview: 07/01/2023atipito was seen in urgent care for a yeast infection on June 14 following an antibiotic she was given at [place] ED for for UTI May 28. Patient states symptoms have resolved. TKRN Diabetes 05/27/2019 07/06/2023 Encounter for supervision of high risk with insufficient care, antepartum 05/23/2019 07/12/2019 Overview: 05/23/2019Recently moved here from [place] May 07. She states that she saw the doctor in [place] 2-3 times total. Signed release of records form to get her records from [place]. Was planning on seeing OB in [place] but states they told her she was too high risk and needed to come here for care. Had one episode of threatened PTL 05/05. Was given fluids at hospital. Denies any medication given to stop labor.TKRN Social work met with patient and her family today to help get her in touch w/ local resources. Juan David De Leon MD History of hypothyroidism 05/23/2019 History of depression 05/23/20192022 Overview: 07/01/2023s. Pt has a history of anxiety/epression diagnosed at age 13. She believes she did have depression.. She has been off medication since 2018. Believes she may have h a prescription available but not sure at what pharmacy. Discussed increased risks of depression during and and importance of reporting the development or worsening of symptoms should they occur. Pt states she had suicidal thoughts at age 14, but none since. Denies any psychiatric hospitalizations. I have advised her that she may want to establish care at the counseling center and this information is provided to her. History of herpes genitalis 05/23/2019 12/15/2023 Family history of congenital heart defect 05/23/2019 07/12/2019 Overview: 05/23/2019FOB was born premature and with a hole in heart. He had surgical correction on heart andand stomach but unsure why he had stomach surgery. TKRN Severe obesity 01/25/2014 12/29/2023 Pure hyperglyceridemia 11/03/201110/09 documented as of this encounter (statuses as of 01/13/2024) [facility]04-02-2024 History of Past illness Narrative* Problem Noted Date Diagnosed Date Resolved Date delivery delivered 01/05/2024 01/12/2024 34 weeks gestation of 01/04/2024 01/12/2024 Supervision of high risk pre gnancy in third trimester 12/29/2023 01/12/2024 Last Assessment & Plan: Continue routine OB care in [place]; MFM co-management. Third trimester counseling was provided. Polyhydramnios 12/15/2023 01/12/2024 Overview: DEIDRA 31 on 12/15/23 Supervision of high risk pre gnancy due to social problems, first trimester 07/01/2023 024 Overview: 07/01/2023Father of baby is not the father of her other child. He is currently incarcerated and is planning on getting out July 15. She states that he did a crime before they met in January and is serving the time now. She is currently living with her sister because I was thrown out of my previous house . She has food insecurity and lacks reliable transportation. I have offered patient a social work referral and she accepts. I have contacted Maynor Powell and she is planning on being present at the patient's new OB appointment. TKRN with history of ce sarean section, antepartum 07/01/2023 01/12/2024 Overview: 07/01/2023celena has a history of a at 36 weeks 1 day in 2018 at [place]. was due to failed induction due to bradycardia in the setting of poorly controlled diabetes. TKRN UTI (urinary tract infection ) in , antepartum 07/01/2023 07/06/2023 Overview: 07/01/2023celena was seen in urgent care for a yeast infection on June 14 following an antibiotic she was given at [place] ED for for UTI May 28. Patient states symptoms have resolved. TKRN Diabetes 05/27/2019 07/06/2023 Encounter for supervision of high risk with insufficient care, antepartum 05/23/2019 07/12/2019 Overview: 05/23/2019Recently moved here from [place] May 07. She states that she saw the doctor in [place] 2-3 times total. Signed release of records form to get her records from [place]. Was planning on seeing OB in [place] but states they told her she was too high risk and needed to come here for care. Had one episode of threatened PTL 05/05. Was given fluids at hospital. Denies any medication given to stop labor.TKRN Social work met with patient and her family today to help get her in touch w/ local resources. Juan David De Leon MD History of hypothyroidism 05/23/2019 History of depression 05/23/20192022 Overview: 07/01/2023s. Pt has a history of anxiety/epression diagnosed at age 13. She believes she did have depression.. She has been off medication since 2018. Believes she may have h a prescription available but not sure at what pharmacy. Discussed increased risks of depression during and and importance of reporting the development or worsening of symptoms should they occur. Pt states she had suicidal thoughts at age 14, but none since. Denies any psychiatric hospitalizations. I have advised her that she may want to establish care at the counseling center and this information is provided to her. History of herpes genitalis 05/23/2019 12/15/2023 Family history of congenital heart defect 05/23/2019 07/12/2019 Overview: 05/23/2019FOB was born premature and with a hole in heart. He had surgical correction on heart andand stomach but unsure why he had stomach surgery. TKRN Severe obesity 01/25/2014 12/29/2023 Pure hyperglyceridemia 11/03/201110/09 documented as of this encounter (statuses as of 01/22/2024) [facility]24 NoteHNO ID: [id number] Author: TYRELL PIERRE MD Service: ? Author Type: Physician Type: Progress Notes Filed: 01/04/2024 18:11 Note Text: /Pediatric Cardiology Consultation Dory Chou MD [facility] NAME: Rosa Cervantes Date of : 1995 Date of Visit: January 04, 2024 Estimated Date of Delivery: 02/15/[address] Chou, I had the pleasure of seeing your patient, Ms. Rosa Cervantes, for a echocardiogram at [facility]. As you know, she is a 28 year old year old female at 34 weeks 0 days gestation who is here for a follow up echocardiogram due to poorly controlled Type 2 Diabetes Mellitus and concern for mild LVH, mildly dilated right atrium/ventricle, and mildly hypoplastic transverse aortic arch. I first saw her on 11/02/2023. At that time, there were sub-optimal aortic arch and pulmonary vein views. She reported poor control of her blood sugars (generally 150 - 250), so we opted for a repeat third trimester echocardiogram. She returned at 29 weeks 0 days gestational age, at that time there was progression in the degree of LV hypertrophy and dilation of the right heart (RA/RV) with new concern for a mildly hypoplastic transverse aortic arch with diastolic flow continuation suggestive of possible evolving coarctation of the aorta. I recommended follow up echo in 4-5 weeks to re-evaluate the degree of ventricular hypertrophy, RA/RV size, and aortic arch dimension/Dopplers and to determine the location of delivery. She has history of TDM, PCOS, hypothyroidism, and asthma. She continues to endorse not checking her blood sugars. She stated that since she was discharged from the hospital (unclear which hospital) on 10/14/2023, she has had difficulty getting the correct insulin (non-Lantus, in sliding scale/insulin pen form). She has not taken her insulin for many months and is not using her Dexcom as she developed a rash. HgbA1c 10.1 (Jul 2023), improved to 7.7 (09/26). She was previously on Metformin, now she is taking synthroid, aspirin. She does endorse compliance with the aspirin and synthroid. She endorses a medication allergy to amoxicillin. Genetic testing included a low risk NIPT, male fetus. She has a 4 year old daughter with autism and a neuromuscular disorder with incontinence, delayed walking until ~3.5yo. Family history is significant for grandmother with stroke/heart attack in her 20s. Otherwise, no known family history of congenital heart disease, sudden cardiac , pacemakers known family history of congenital anomalies. She denies any alcohol, tobacco, or drug use during the . Per Dr. Velasco, plan for delivery in SDU due to poorly controlled maternal diabetes. A full echocardiogram was performed and reviewed by myself. Please see the full report in Chart Review/Cardiac tab. echocardiogram today was technically challenging due to sub-optimal acoustic windows and movement. Echocardiogram showed normal intracardiac segmental anatomy. The right atrium and ventricle are mildly dilated (RV minor 21.4 mm/Arshad Z+2.84, RV major 41.2 mm/Arshad Z+2.89.) The transverse aortic arch measures mildly hypoplastic (3.3 mm/Z-2.30), the aortic isthmus measures normally (sagittal 3.2 mm/Z-1.51), sub-optimal 3VV. There is abnormal aortic arch flow with flow acceleration (Vmax 1.66 m/s) and diastolic continuation of flow suggestive of possibly evolving coarctation of the aorta. No significant ventricular level shunts. No evidence for hydrops. The ductus venosus, umbilical vein and umbilical artery Dopplers were normal. Echocardiogram Summary: Technically challenging due to sub-optimal acoustic windows and movement. Levocardia with normal intracardiac segmental anatomy (S, D, S). No significant atrioventricular valvar regurgitation; normal biphasic inflow pattern. Mild to moderately dilated tricuspid valve annulus (16.2mm/Z +3.79). The right atrium and ventricle are mildly dilated (RV minor 21.4 mm/Arshad Z+2.84, RV major 41.2 mm/Arshad Z+2.89.) Moderate RV hypertrophy, normal systolic function. The left ventricle is apex-forming (LV minor 16.0 mm/Arshad Z+1.18, LV major 32.5 mm/Arshad Z+1.47). Mild left ventricular hypertrophy and normal systolic function. Sub-optimal visualization of the aortic arch. The transverse aortic arch measures normally (4.7 mm/Z-1.42), the aortic isthmus measures normally (sagittal 4.9 mm/Z +0.92), however, there is abnormal aortic arch flow with reversal of flow in the transverse aortic arch. Concern for evolving coarctation of the aorta. Slightly tortuous ductus arteriosus, mild flow acceleration without evidence of 2D narrow (Vmax 1.8 m/s, normal PI > 2.0). Mildly hypoplastic aortic valve (4.7 mm/Z -2.74) without significant flow acceleration (Vmax 1.3 m/s), no regurgitati (more content not included)...[facility]04-01-2024 History of Present illness Narrative* Tyrell Pierre MD - 01/04/2024 5:30 PM EDT /Pediatric Cardiology Consultation Dory Chou MD [facility] NAME: Rosa Cervantes Date of : 1995 Date of Visit: January 04, 2024 Estimated Date of Delivery: 02/15/[address] Chou, I had the pleasure of seeing your patient, . Rosa Cervantes, for a echocardiogram at [facility]. As you know, she is a 28 year old year old female at 34 weeks 0 days gestation who is here for a follow up echocardiogram due to poorly controlled Type 2 Diabetes Mellitus and concern for mild LVH, mildly dilated right atrium/ventricle, and mildly hypoplastic transverse aortic arch. Ifirst saw her on 11/02/2023. At that time, there were sub-optimal aortic arch and pulmonary vein views. She reported poor control of her blood sugars (generally 150 - 250), so we opted for a repeat third trimester echocardiogram. She returned at 29 weeks 0 days gestational age, at that time there was progression in the degree of LV hypertrophy and dilation of the right heart (RA/RV) with new concern for a mildly hypoplastic transverse aortic arch with diastolic flow continuation suggestiveof possible evolving coarctation of the aorta. I recommended follow up echo in 4-5 weeks to re-evaluate the degree of ventricular hypertrophy, RA/RV size, and aortic arch dimension/Dopplers andto determine the location of delivery. She has history of TDM, PCOS, hypothyroidism, and asthma. She continues to endorse not checking herblood sugars. She stated that since she was discharged from the hospital (unclear which hospital) on 10/14/2023, she has had difficulty getting the correct insulin (non-Lantus, in sliding scale/insulin pen form). She has not taken her insulin for many months and is not using her Dexcom as she developed a rash. HgbA1c 10.1 (Jul 2023), improved to 7.7 (09/26). She was previously on Metformin, now she is taking synthroid, aspirin. She does endorse compliance with the aspirin and synthroid. She endorses a medication allergy to amoxicillin. Genetic testing included a low risk NIPT, male fetus. She has a 4 year old daughter with autism and a neuromuscular disorder with incontinence, delayed walking until ~3.5yo. Family history is significant for grandmother with stroke/heart attack in her 20s. Otherwise, no known family history of congenital heart disease, sudden cardiac , pacemakers <age 50 or heart transplants. No known family history of congenital anomalies. She denies any alcohol, tobacco, or drug use during the . Per Dr. Velasco, plan for delivery in SDU due to poorly controlled maternal diabetes. A full echocardiogram was performed and reviewed by myself. Please see the full report in Chart Review/Cardiac tab. echocardiogram today was technically challenging due to sub-optimal acoustic windows and movement. Echocardiogram showed normal intracardiac segmental anatomy. The right atrium and ventricle are mildly dilated (RV minor 21.4 mm/Arshad Z+2.84, RV major 41.2 mm/Arshad Z+2.89.) The transverse aortic arch measures mildly hypoplastic (3.3 mm/Z-2.30), the aortic isthmus measures normally (sagittal 3.2 mm/Z-1.51), sub-optimal 3VV. There is abnormal aortic arch flow with flow acceleration (Vmax 1.66 m/s) and diastolic continuation of flow suggestive of possiblyevolving coarctation of the aorta. No significant ventricular level shunts. No evidence for hydrops. The ductus venosus, umbilical vein and umbilical artery Dopplers were normal. Echocardiogram Summary: Technically challenging due to sub-optimal acoustic windows and movement. Levocardia with normal intracardiac segmental anatomy (S, D, S). No significant atrioventricular valvar regurgitation; normal biphasic inflow pattern. Mild to moderately dilated tricuspid valve annulus (16.2mm/Z +3.79). The right atrium and ventricle are mildly dilated (RV minor 21.4 mm/Arshad Z+2.84, RV major 41.2mm/Arshad Z+2.89.) Moderate RV hypertrophy, normal systolic function. The left ventricle is apex-forming (LV minor 16.0 mm/Arshad Z+1.18, LV major 32.5 mm/Arshad Z+1.47). Mild left ventricular hypertrophy and normal systolic function. Sub-optimal visualization of the aortic arch. The transverse aortic arch measures normally (4.7 mm/Z-1.42), the aortic isthmus measures normally (sagittal 4.9 mm/Z +0.92), however, there is abnormal aortic arch flow with reversal of flow in the transverse aortic arch. Concern for evolving coarctation of the aorta. Slightly tortuous ductus arteriosus, mild flow acceleration without evidence of 2D narrow (Vmax 1.8m/s, normal PI > 2.0). 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 Pulmonary veins not well seen. No pericardial effusion or evidence of hydrops. Significant polyhydramnios. Normal umbilical artery, triphasic umbilical vein Doppler profile. Could not obtain ductus venosus Doppler. Normal heart rate (154 BPM, NH 100 ms) and rhythm. abdominal circumference measuring large at 41w2d, BPD/FL measuring 35w0d. We reviewed the findings of today's echocardiogram with Ms. Rosa Cervantes and her partner with the help of a diagram. I previously explained normal and cardiac anatomy and physiology. I explained the study was again technically challenging today. I explained I continue to be concerned about the degree of biventricular hypertrophy related to her poorly controlled diabetes. I am also worried there is an evolving coarctation of the aorta based off of the dilation of the RA/RV, the abnormal color Doppler flow in the transverse aortic arch (flow reversal today). In limited views, the transverse aortic arch measures normally today. I discussed Ms. Cervantes's echocardiogram with Dr. Geovani Velasco, and expressed my concern with the triphasic umbilical vein Doppler and significant polyhydramnios. Dr. Velasco opted to perform herscheduled BPP today instead of tomorrow. The fetus scored 8 out of 8 on the BPP. However, due to high risk of demise related to the polyhydramnios, severely uncontrolled maternal diabetes, increasing ventricular hypertrophy, and concern for evolving coarctation of the aorta and possibly mildly hypoplastic aortic valve, we opted to send Ms. Cervantes to the SDU. The OB team will plan for improved glucose control with planned induction of labor/delivery tomorrow. I previously explained the limitations of a echocardiogram, including that the foramen ovale and ductus arteriosus are normal structures and are present in the fetus today, however, we are unable to predict if they close normally after . In addition, we reviewed that certain cardiac anomalies are challenging to diagnose on echocardiography, including atrial septal defects, small ventricular septal defects, minor valve abnormalities, pulmonary vein anomalies and coarctation of the aorta. Based on today's echocardiogram, Assessment 1. Maternal Type II Diabetes Mellitus (poorly controlled/non-compliant) 2. Maternal hypothyroidism, PCOS, asthma 3. Concern for evolving coarctation of the aorta - abnormal Doppler flow 4. Mildly hypoplastic aortic valve 5. Mildly dilated RA/RV 6. Mild left ventricular hypertrophy Plan: Delivery Recommendations: cardiac diagnosis: Poorly controlled maternal diabetes, mild biventricular hypertrophy, mildly hypoplastic aortic valve and concern for possible evolving coarctation of the aorta Location of Delivery: SDU Mode/timing of delivery: Per OB recommendations PGE dependent cardiac lesion: Possible - evaluate before starting test lab technician/OR on standby: No Dedicated cardiac imaging team required in delivery room: No - plan for echo once infant is stabilized in SDU or NICU [place] disposition: NICU Infant may remain for bonding in delivery room (discretion of neonatology team): Yes Umbilical lines: Yes Timing of echo: Urgent - to determine need for PGE, plan to perform prior to umbilical lines once infant is stabilized I reviewed all of this information with Ms. Rosa Cervantes, who verbalized understanding and was inagreement with the plan of care. All her questions were answered. Thank you for allowing me to participate in the care of your patient. If you have any questions or concerns, please feel free to contact me at any time. Sincerely, Tyrell Pierre MD Belling Machine Operator of Pediatrics Division of Pediatric Cardiology [facility] During this patient visit I have spent approximately 75 minutes out of 90 in coordinating/counseling about the above findings and limitations of echocardiogram. documented in this encounterMercy Health [facility]iffin Hospital04-01-2024 Miscellaneous Notes* Telephone Encounter - Geovani Velasco MD - 01/04/2024 12:28 PM EDT I spoke with Dr. Pierre from Pediatric Cardiology today about her ECHO results and plan of care. Briefly, Ms. Cervantes is a at 34w0d with a complicated by class 3 obesity (BMI 41), poorly controlled Type 2 diabetes (insulin), hypothyroidism (synthroid), suspected coarctationof the aorta, and history of delivery. 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 She had a follow-up ECHO today with Dr. Pierre and I spoke with her about the results - there is concern for coarctation, significant ventricular disproportion with RV hypertrophy and dysfunction (including a triphasic pulsatile UV). While there is concern for coarctation, these findings may also reflect septal hypertrophy secondary to her poorly controlled DM. BPP today was 8/8. At the time of my visit with Ms. Cervantes last week, we discussed delivery at the SDU at 36 weeks unless there were any change in /maternal findings/clinical status. I spoke to Ms. Cervantes by telephone about the findings form today and her plan of care. We reviewed the risks of expectancy and thoseof delivery. We reviewed the gestational age related risks of late prematurity and the impact of prematurity on neonates with congenital heart disease. Given her poorly- controlled Type 2 Diabetes, diabetic fetopathy, and the ECHO findings today which include RV hypertrophy and dysfunction, the risks of expectancy and IUFD are greater than those of delivery and late prematurity. Recommend admission to the SDU for glycemic control followed by delivery (planned RCD) tomorrow. With poorly controlled diabetes at the current gestational age, would not recommend delaying delivery for ANCS. The SDU and clinical care teams were updated. Our Motor Vehicle Technician was updated and will facilitate delivery coordination. All questions answered. Ms. Cervantes expressed understanding and agreement with the plan of care. Geovani Velasco MD documented in this encounterJason Ville [id number] Miscellaneous Notes* Quick Notes - Geovani Velasco MD - 12/29/2023 12:47 PM EDT Patient did not bring CGM or blood sugar log today. Had recent insulin regimen increase and reportsthat she is taking 30/30 N and 30/30/30 (+SSI) L with meals. Reports that fasting and postprandial values (1.5-2 hours) remain elevated at 150-200s; also reports intermittent values overnight in the 60s. Otherwise she reported feeling well today and had no new symptoms or concerns. Reports normal FM and denies VB, LOF, contractions, abdominal pain, dyspnea, cardiopulmonary sx, or any sx Pre-E. ROS otherwise negative. BP 112/78 Wt 261 lb 6.4 oz (118.6 kg) LMP 05/06/2023 (Exact Date) BMI 46.30 kg/m General: Alert, oriented x 3, NAD. HEENT: Normocephalic, atraumatic, mucous membranes moist, sclerae anicteric. CV: RRR Abdominal: Soft/obese, non-tender, non-distended without rebound or guarding. Uterus non-tender. Extremities: Non-tender, no erythema, trace to 1+ symmetric edema. Psych: normal mood and affect. OB: US today - BPP 8/8, severe polyhydramnios (AFV 47.7 cm). Labs/data since last visit - reviewed in EMR Impression/Plan: Return OB visit at 33w1d with the following issues addressed today: Hypothyroidism affecting in third trimester Primary management per Endocrinology. Currently on 225 mcg synthroid daily, which was a dose titration after most recent TSH in late November was elevated at 5.1. Recommend she continue current dose of synthroid, have repeat TFTs drawn in the coming week, and have continued dose titration to achieve euthyroid state. The maternal and risks of hypothyroidism were reviewed. with type 2 diabetes mellitus in second trimester Appreciate primary management per Endocrinology. Overall control remains suboptimal, and we reviewed the maternal and risks of poorly controlled Type 2 DM in including the risk ofPre-E (and sequelae) and IUFD. Based on her reported blood sugars, recommend increasing NPH to 40/30 N and 36/36/[address] Weems updated and reviewed with patient recommendation for ongoing assessment and insulin titration to euglycemia. Recommend she bring her CGM/log to all office/surveillance visits. US today with BPP 05/12 and severe polyhydramnios. We reviewed that while polyhydramnios may be related to her underlying diabetes, we reviewed that other etiologies including structural anomalies, neuromuscular disorders, chromosomal disorders, genetic syndromes, or intrinsic renal disease cannot be excluded. Serial assessment of growth (every 4 weeks) and twice weekly surveillance are recommended until delivery. Given her poorly controlled T2DM, acceleratedfetal growth velocity, and severe polyhydramnios, reviewed recommendation for delivery at 36 weeks and delivery at SDU is anticipated (see suspected coarctation below). A home BP cuff was ordered forhome BP monitoring and instructions for use were reviewed. DM precautions, Pre-E precautions, and PTB precautions were reviewed. Suspected coarctation of the aorta Reviewed with patient the potential for underlying coarctation of the aorta and we discussed the risks/implications of coarctation. She is s/p Pediatric Cardiology consultation and a follow-up ECHO is scheduled for next Wednesday 01/03. Reviewed that a final interdisciplinary delivery plan will be made after her follow-up ECHO, however we reviewed that given the suspected coarctation and severe polyhydramnios, delivery at the SDU is anticipated with delivery timing of 36 weeks as per DM above. All questions regarding coarctation were addressed and our Coordinators were updated. Supervision of high risk in third trimester Continue routine OB care in [place]; MFM co-management. Third trimester counseling was provided. OB precautions, DM precautions, HTN/Pre-E precautions, and FM expectations/kick counts reviewed. RTC for twice weekly surveillance, follow-up with MFM for BPP/office visit in 1 week to finalize delivery plans. All questions answered. Ms. Cervantes expressed understanding and agreement with the plan of care. Geovani VIDAL I spent a total of 45 minutes on the date of the service which included preparing to see the patient, [id number] patient care, completing clinical documentation, obtaining and/or reviewing separately obtained history, performing a medically appropriate examination, counseling and educating the pat ient/family/caregiver, communicating results to the patient/family/caregiver, and care coordination(not separately reported). documented in this encounterMercy Health Tiffin Hospital03-25-2024 Miscellaneous Notes* Addendum Note - Juan David De Leon MD - 12/28/2023 11:14 AM EDTAddended by: JUAN DAVID DE LEON on: 12/28/2023 11:14 AM Modules accepted: Orders * Addendum Note - Sarah Morales MA - 12/28/2023 11:11 AM EDTAddended by: SARAH MORALES on: 12/28/2023 11:11 AM Modules accepted: Orders * Quick Notes - Juan David D eLeon MD - 12/28/2023 11:00 AM EDT RR- VB No. LOF No. CTXS No. Movement: present. Other c/o: pain in vulva, has been on acylcovir bid but worsening. Alos small amount of watery discharge Medication list reviewed. Physical Exam See Flow Sheet Abd: soft, nontender, gravid : external genitalia: multiple HSV lesions, erythema, tender, no induration, vagina: pink, ruggated, discharge: watery, clear, yellow, mucous, and blood: absent, cervix: closed, smooth, and nonfriable, some lesions noted Ext: edema: Trace A/P 33w0d Estimated Date of Delivery: 02/15/24 acute HSV outbreak, acylcovir qid x 5 days then resume bid DM - poorly controlled, BPP tomorrow as scheduled and M visity vaginitis swabs done,. may have yeast as well as HSV, however, no evidence of cellulitis, call or return if fever or worsens. Declines to sign title 19, not sure of contraception plans after delivery Juan David De Leon M.D. documented in this encounterMercy Health Tiffin Hospital03-22-2024 Miscellaneous Notes* Quick Notes - Nolvia Man MD - 12/25/2023 12:32 PM EDT NST- unable to keep fetus on NST. Lots of movement. A few contractions BPP performed. 05/12 DEIDRA now 44 cm. Does have appointment with MFM on Thursday. States her blood sugars are still high. Has not shared glucose monitoring with endocrinology this week. Encouraged to do so. Stressed importance of BG management with . Does not yet have c/s scheduled. Medical Decision Making: Problems: Moderate: 1+ chronic illnesses with change Data: Unique test result(s) reviewed: 2 Unique test(s) ordered: 1 Risk: Low: Low risk from testing/treatment Medical Decision Making Level: 4 - Moderate documented in this encounterMercy Health Tiffin Hospital03-22-2024 Miscellaneous Notes* Telephone Encounter - Dasha Pyle RN - 12/25/2023 9:06 AM EDT Called patient. Left a message for her to send her BG Log today. We did not receive it last week. documented in this encounterMercy Health Tiffin Hospital03-19-2024 Miscellaneous Notes* Quick Notes - Nolvia Man MD - 12/22/2023 4:07 PM EDT Patient left without being seen. documented in this encounterMercy Health Tiffin Hospital03-19-2024 Instructions* Patient Instructions* Anais Reese MA - 12/22/2023 1:33 PM EDT SEQUENTIAL SCREENINGS [facility] offers sequential screenings for women who are interested in screenings for chromosomal abnormalities and certain defects during a . The sequential screen combinesultrasound and blood tests to determine the risk of chromosomal abnormalities, including Down's Syndrome (Trisomy 21) and Trisomy 18, as well as open neural tube defects including spina bifida. Ultrasound examination is performed between 11 weeks and 13 weeks gestational age. Blood tests are drawn after the ultrasound and again later in the between 15 and 21 weeks gestational age. Please let your physician know if you are interested in this testing. It will require an appointment withour contract technician. This is not an ultrasound performed by a physician in our office during a routine visit. SIGNS AND SYMPTOMS OF LABOR 1. Contractions every 10 minutes or more often 2. Clear, pink, or brownish fluid (water) leaking from vagina 3. Feeling that baby is pushing down, pressure 4. Low, dull backache 5. Cramps that feel like a period 6. Cramps with or without diarrhea If you notice any of the above symptoms, contact our office at [phone] and ask to speak with anurse. After hours, you can call doctors registry at [phone] OR call [facility] at [phone] ask to have the doctor aeronautical engineer paged. If you consider this an emergency, dial 9-1 or go to your nearest emergency department. NEED HELP? Are you dealing with a violent or abusive relationship? Are you a victim of rape or sexual assult? Call [facility] ([place]) 24 hour Crisis Hotline: 956.639.4928 or 167-161-9540. MANUAL Your Guide to a Healthy manual is now on-line. Visit [email or web address] to download your free copy documented in this encounterMercy Health Tiffin Hospital03-19-2024 Miscellaneous Notes* Telephone Encounter - Anuja Lozano RN - 12/22/2023 1:31 PM EDT Patient in office now and notified. Anuja Lozano RN * Telephone Encounter - Nolvia Man MD - 12/22/2023 1:08 PM EDT Rx sent for patient * Telephone Encounter - Anuja Lozano RN - 12/22/2023 8:46 AM EDT 32w1d Calling because she has had a HSV outbreak x3 days and requesting acyclovir rx. Pharmacy correct. Anuja Lozano, RN documented in this encounterMercy Health Tiffin Hospital03-15-2024 Note[facility]03-15-[facility]24 History of Present illness Narrative* Humphrey Frye MD - 12/18/2023 11:55 AM EDT NST SUMMARY PROVIDER ASSESSMENT AND INTERPRETATION Rosa Cervantes is a 28 year old female, , who is at 31w4d with an VI of 02/15/2024, by Ultrasound dating method. Indications for NST: Diabetes - Insulin Controlled Baseline: 140 Variability: Moderate Accelerations: Present 15 X 15 Decelerations: Variable Contractions: TOCO: Irregular Interpretation: Reactive SIGNATURE: Humphrey Frye MD documented in this encounterMercy Health Tiffin Hospital03-15-2024 Miscellaneous Notes* Telephone Encounter - Landon Powell, METAL WINDOW FRAME MAKER - 12/18/2023 11:04 AM EDT Sw met with patient and significant other. Discussed housing needs further. Patient notes that theyhave [facility] [employer] vou[facility], but have been struggling with finding a place available. Sw assisted patient and S/O with contacting [facility] and leaving a message with staff member that family works. Noted family has not been able to locate housing and S/O asked for return call to him to discuss any other housing options. Sw had checked with [employer] for hotel vouchers and was told that [employer] iscurrently out of hotel vouchers. Patient very interested in locating her own housing as she reportsit is strained living with sister and mother in a mobile home. Patient notes that they have also filled out application for [employer] and planning on turning application in today. Patient also notes that they receive food stamps, but struggle with food and arguments with sister in regards to food stamps. Patient also reports that family receives food assistance from [facility] and Medicaid through [employer]. Patient,S/O and daughter are currently staying with her sister and mom. Patient notes that daughter Paula has been receiving therapy services from [facility] and planning on starting pre school this next week. Patient and Sw discussed [facility] [place] in regards to referral to their service coordination program. Mom interested in being referred to account services specialist from [facility]. Sw printed off referral and consent for release and patient signed referral to see about service coordination to help patient and daughter with coordination of social worker masters. Sw spoke with [facility] director and Alessandra requested that Sw fax referral to [facility], fax [phone]. Sw faxed referral to [facility]. Sw also provided patient with [facility] resource guide with food pantry options. documented in this encounterMercy Health Tiffin Hospital03-15-2024 Miscellaneous Notes* Quick Notes - Humphrey Frye MD - 12/18/2023 10:58 AM EDT KJ - VB No. LOF No. CTXS No. Movement: present. Other c/o: No. Medication list reviewed. Physical Exam See Flow Sheet Gen: no accute distress, well appearing A/P 31w4d Estimated Date of Delivery: 02/15/24 DM & hypothyroid - follows with endocrinology MOD - repeat at 36-37 weeks at tertiary care center due to poorly controlled DM and concern over possible coarctation of the aorta Continue serial growth US & testing Humphrey Frye MD documented in this encounterMercy Health Tiffin Hospital03-15-2024 Instructions* Patient Instructions* Terri Mccormick MA - 12/18/2023 10:39 AM EDT SEQUENTIAL SCREENINGS The [facility] offers sequential screenings for women who are interested in screenings for chromosomal abnormalities and certain defects during a . The sequential screen combinesultrasound and blood tests to determine the risk of chromosomal abnormalities, including Down's Syndrome (Trisomy 21) and Trisomy 18, as well as open neural tube defects including spina bifida. Ultrasound examination is performed between 11 weeks and 13 weeks gestational age. Blood tests are drawn after the ultrasound and again later in the between 15 and 21 weeks gestational age. Please let your physician know if you are interested in this testing. It will require an appointment withour contract technician. This is not an ultrasound performed by a physician in our office during a routine visit. SIGNS AND SYMPTOMS OF LABOR 1. Contractions every 10 minutes or more often 2. Clear, pink, or brownish fluid (water) leaking from vagina 3. Feeling that baby is pushing down, pressure 4. Low, dull backache 5. Cramps that feel like a period 6. Cramps with or without diarrhea If you notice any of the above symptoms, contact our office at [phone] and ask to speak with anurse. After hours, you can call doctors registry at [phone] OR call [facility] at [phone] ask to have the doctor aeronautical engineer paged. If you consider this an emergency, dial 9-1-8 or go to your nearest emergency department. NEED HELP? Are you dealing with a violent or abusive relationship? Are you a victim of rape or sexual assult? Call [facility] ([place]) 24 hour Crisis Hotline: 826.274.3627 or 088-592-2015. MANUAL Your Guide to a Healthy manual is now on-line. Visit [email or web address] to download your free copy documented in this encounterMercy Health Tiffin Hospital03-12-2024 Miscellaneous Notes* Telephone Encounter - Landon Powell MSW - 12/15/2023 10:30 AM EDT Haylee left message for [facility] housing and support services to check and see if they are providing hotel vouchers in case patient unable to locate [facility] apt with voucher. Haylee requested call back to discuss hotel voucher availability. documented in this encounterMercy Health Tiffin Hospital03-12-2024 NoteGrant [facility]03-12-2024 History of Present illness Narrative* Trupti Esteban MD - 12/15/2023 10:13 AM EDT Images from the original note were not included. MFM Ultrasound Note 28 yo at 31w1d presenting for growth scan/BPP in setting of poorly controlled T2DM. A1C at onset of 10.1%, last 8.0% 11/2023. Following with Dr. Weems with suboptimal control - insulin last uptitrated last week. Also with hypothyroidism on increased dose of Synthroid as of last week. 28 yo at 31w1d presenting for growth scan/BPP in setting of poorly controlled T2DM. A1C at onset of 10.1%, last 8.0% 11/2023. Following with Dr. Weems with suboptimal control - insulin last uptitrated last week. Reports using CGM now and has not received any high alerts over the past week. Also with hypothyroidism on increased dose of Synthroid as of last week. further notable for possible evolving aortic coarctation being followed by pediatric cardiology (next echo 01/04/24). Ultrasound today demonstrated: 1. Single, live, intrauterine . 2. Adequate interval growth with EFW > 99%ile, AC > 99%ile. 3. Amniotic fluid is polyhydramnios with MVP 9.3 cm. DEIDRA 31.0 cm. 4. The placenta is posterior, fundal. 5. Normal limited anatomy as detailed below. Aorta suboptimally imaged. 6. BPP 8. We reviewed the findings of today's ultrasound at length. We discussed that the gadwe-ewe-bvudnzzvmbd age fetus and moderate polyhydramnios are both signs of suboptimally controlled diabetes. Rosa reported adherence to the updated regimen started last week with improved control on her CGM. We reviewed risks to the fetus in utero and after delivery related to poor diabetes control. We discussed the role of twice weekly testing beginning now. We also discussed that a late /early term delivery may be indicated pending surveillance and diabetes control. Based on current findings, in the absence of other clinical concerns, I recommend considering delivery at 36-37 weeks. Recommendations: -Continue current insulin regimen and CGM use with follow up with Dr. Weems as scheduled on 01/10 -Twice weekly surveillance (once weekly NST, once weekly BPP on different days) -Repeat growth scan in 3-4 weeks for surveillance and delivery planning (timing) -Consider delivery at 36-37 weeks for suboptimal glucose control pending further monitoring Trupti Esteban MD Maternal- Medicine Hotel Services Sales Representative & [facility] [place] I spent a total of 30 minutes on the date of the service which included preparing to see the patient, fqdy-sd-scld patient care, completing clinical documentation, obtaining and/or reviewing separately obtained history, performing a medically appropriate examination, counseling and educating the pat ient/family/caregiver, and ordering medications, tests, or procedures. documented in this encounterMercy Health Tiffin Hospital03-07-2024 NoteHNO ID: [id number] Author: LANDON POWELL MSW Service: ? Author Type: Or Rn Type: Progress Notes Filed: 12/10/2023 12:31 Note Text: See Haylee My Chart message with patient 12/10/23.[facility]03-07-[facility] History of Present illness Narrative* Landon Powell MSW - 12/10/2023 12:31 PM EST See Haylee My Chart message with patient 12/10/23. * Landon Powell MSW - 12/10/2023 10:34 AM EST Sw has not had return call from patient. Haylee sent My Chart message to patient to see about communicating with patient and discussing social service needs. * Landon Powell MSW - 12/03/2023 2:38 PM EST Sw left message for patient to call Sw back to discuss food/community resource needs. documented in this encounterMercy Health Tiffin Hospital03-07-2024 NoteGrant [facility]03-05-2024 NoteHNO ID: [id number] Author: ?, ?, ? Service: ? Author Type: ? Type: Progress Notes Filed: 12/08/2023 10:23 Note Text: Spoke with patient, scheduled 01/11/2024 @ 3:40 pm (virtual appointment)[facility]03-05-[facility] History of Present illness Narrative* Isatu Riggs - 12/08/2023 10:23 AM EST Spoke with patient, scheduled 01/11/2024 @ 3:40 pm (virtual appointment) * Jabier Weems DO - 12/07/2023 1:01 PM EST Referring Physician: Dr Juan David De Leon My final recommendations will be communicated back to the requesting physician by way of shared Medical record or letter via US mail. Reason for consultation: Follow up - uncontrolled type 2 diabetes antepartum. This Team Access Model visit is a virtual encounter. It required patient- provider interaction for the medical decision making as documented below. I have communicated my name and active licensure. The patient's identity and physical location wereverified at the time of this visit. Either the patient or their legal customer retention representative has been informed of the risks and benefits of -- and alternatives to -- treatment through a remote evaluation andconsents to proceed with the evaluation remotely. HISTORY OF PRESENT ILLNESS; Ms. Cervantes is a 28 year old presenting at 30+ weeks gestation who is here for follow up regarding uncontrolled type 2 diabetes antepartum. Her initial visit with me was 07/20. Has no-showed multiple appointments, I have not seen her for a visit since 08/29/23. She has a hx of GDM in in 2019- required insulin during that , discontinued after delivery. BG started to increase after delivery and metformin were then restarted. Strong family hx of diabetes, including her mother. She has seen the ict educator earlier in this . At first visit with me - switchedher basal insulin to NPH and increased Novolog. Unfortunately she has not been taking insulin for several weeks, or monitoring her BG. We have reached out to her weekly (or more) requesting BG data, etc without response. She has not sent me her BG data since her initial visit (despite numerous attempts of my office to contact her). She is now using CGM again- but only recently restarted. She forwarded me her BG data (on thursday, did not forward prior to this visit) - BG 134 to 187 mg/dL. Could not tell the timing of the checks in relationship to fasting, or meals in the format she sent them however. She states she is taking the following regimen NPH 30 units at bedtime Humalog 20 units prior to meals + scale States she is using vial/syringe insulin (not pens). Hypoglycemia frequency: n/a Hypoglycemia awareness: Yes Hyperglycemia Symptoms: denies blurry vision reports polyuria denies polydipsia reports nocturia denies rapid weight loss Regarding her thyroid - dx many years ago. Her current regimen is levothyroxine 200 mcg/day. Was missing doses previously- she is now taking as prescribed. Most recent blood work as below. Last visit with OB was - u/s was 11/18- [facility] [address] [facility], AC [address], DEIDRA NL- having a boy. No complaints/concerns at this time. PAST MEDICAL HISTORY Diagnosis Date Abnormal Pap smear of cervix Anemia Asthma has not used an inhaler since age 18 Breast abscess Cellulitis 06/2022 breast Complication of anesthesia has issues with breathing after being woken-uses Albuterol Depression Diabetes mellitus (HCC) IDDM Genital herpes Gestational diabetes Hypothyroid PCOS (polycystic ovarian syndrome) depression PAST SURGICAL HISTORY Procedure Laterality Date SECTION HX CHOLECYSTECTOMY INCISION AND DRAINAGE 2020 breast abscess MYRINGOTOMY x4 TONSILLECTOMY AND ADENOIDECTOMY HX FAMILY HISTORY Problem Relation Age of Onset Diabetes Father Hypertension Father Asthma Mother Thyroid Mother other (PCOS) Mother Thyroid Sister Allergies Sister other (PCOS) Sister Cataract Maternal Grandmother Glaucoma Maternal Grandmother Heart Attack Maternal Grandmother Diabetes Maternal Grandfather Heart Maternal Grandfather Cancer Paternal Grandmother Heart Paternal Grandfather No Known Problems Daughter Social History Tobacco Use Smoking status: Former Types: Cigarettes Quit date: 10/22/2018 Years since quittin.1 Smokeless tobacco: Never Vaping Use Vaping Use: Never used Substance Use Topics Alcohol use: Not Currently Drug use: Not Currently Types: Marijuana Comment: no use since 2018 Current Outpatient Medications Medication Sig Dispense Refill Insulin Syringe-Needle U-100 1 mL 30 gauge x 5/16 syrg USE THREE TIMES A DAY DIRECTED 100 Each 11 levothyroxine (SYNTHROID) 200 mcg tablet Take 1 tablet by mouth once daily. 90 tablet 0 aspirin 81 mg chewable tablet Take 1 tablet by mouth once daily. 180 tablet 0 sodium chloride 0.65 % nasal spray Use 1 [place] in the nose as needed for cold/allergy symptoms. 15 mL 0 guaiFENesin (MUCINEX) 600 mg 12 hr tablet Take 2 tablets by mouth two times a day as needed for cold/allergy symptoms. 20 tablet 0 insulin NPH (HUMULIN N NPH INSULIN KWIKPEN) 100 unit/mL (3 mL) injection pen Inject 30 Units subcutaneously daily with breakfast AND 48 Units daily at bedtime. 71 mL 0 insulin lispro (HUMALOG KWIKPEN) 100 unit/mL Inject 22 Units subcutaneously three times a day before meals. 60 mL 0 Insulin [place], Disposable, (PEN NEEDLE) 32 gauge x 5/32 Use to inject insulin up to 8 times per day. 100 Each 5 Blood-Glucose Sensor (FREESTYLE ELIANE 3 SENSOR) osman Use as instructed. 2 Each 5 albuterol HFA (PROVENTIL HFA, VENTOLIN HFA) 90 mcg/actuation inhaler Inhale 2 Puffs as instructed every 4 hours as needed for wheezing/shortness of breath. 1 Each 0 Insulin [place], Disposable, (PEN NEEDLE) 32 gauge x 5/32 Use to inject insulin up to 8 times per day. 100 Each 5 insulin aspart U-100 (NOVOLOG FLEXPEN U-100 INSULIN) 100 unit/mL (3 mL) Inject 3 Units subcutaneously three times a day before meals. 3 mL 0 Insulin [place], Disposable, (BD ULTRAFINE III MINI PEN) 31 gauge x 3/16 1 Each four times daily. USE WITH INSULIN PENS/ BYETTA PENS 4 TIMES DAILY 150 Each 3 promethazine (PHENERGAN) 25 mg tablet Take 0.5-1 tablets by mouth every 6 hours as needed. 30 tablet 1 blood sugar diagnostic test strip Use as directed to check glucose levels up to seven times daily. 200 Strip 8 Lancets lancets Use as directed to check glucose levels up to seven times daily. 200 Each 8 alcohol swabs (ALCOHOL PREP PADS) Use as directed to check glucose levels up to seven times daily. 200 Each 8 VIT 49-QFMZ-AFLAZ-DHA ORAL Take by mouth. famotidine (PEPCID) 20 mg tablet Take 20 mg by mouth twice daily. metFORMIN (GLUCOPHAGE) 500 mg tablet Take 1 tablet by mouth twice daily with meals. 60 tablet 1 No current facility-administered medications for this visit. Allergies As of Date: 12/07/2023 Allergen Noted Reaction AMOXICILLIN 05/23/2019 Rash MOLD 05/23/2019 Rash RED DYE 05/23/2019 Rash WHEAT 07/18/2014 Rash Fully Assessed 12/03/2023 REVIEW OF SYSTEMS: Skin: no rashes, pruritis or dry skin Eyes: no blurred or double vision or eye pain Cardiac: denies chest pain, heart palpitations or orthopnea PHYSICAL EXAM: No vitals as this was a virtual visit. GENERAL: Alert, no distress, cooperative SKIN: Skin color, texture, turgor normal. No rashes or lesions. HEAD/SINUSES: No significant findings EYES: sclera non-icteric, EOMs intact. ABDOMEN: gravid at 15+ weeks EXTREMITIES: Normal exam of the extremities NEURO: AAO x 3, no focal deficits. The remainder of the physical exam is noncontributory. DATA: Component Latest Ref Rng & Units 05/25/2019 07/06/2023 2023 12/03/2023 Hemoglobin A1C 4.3 - 5.6 % 7.5 (H) 10.1 (H) 7.7 (H) 8.0 (H) Estimated Average Glucose mg/dL 169 243 174 183 Component Latest Ref Rng & Units 07/06/2023 08/25/2023 2023 10/09/2023 12/03/2023 TSH 0.270 - 4.200 mIU/L 27.700 (H) 3.300 2.980 6.670 (H) 5.160 (H) IMPRESSION: Ms. Cervantes is a 28 year old presenting at 30+ weeks gestation who is here for follow up regarding uncontrolled type 2 diabetes antepartum and hypothyroidsim complicating . RECOMMENDATIONS: 1. I again counseled Rosa Cervantes regarding the importance of maintaining euglycemia during . She should continue to monitor carbohydrate intake, and walk after meals, if not contraindicated. Pt has been non compliant with insulin, BG monitoring for much of this , accordingly her blood glucose has been markedly elevated and not at goal for . 2. I recommend she check her blood glucose fasting, and 2 hour after each meal. Fasting blood glucose targets are between 60-90mg/dl, and 2 hour post prandial blood glucose concentration should be less than 120mg/dl. Regarding her blood glucose management, I recommend: 1) check your sugars fasting (60-90 mg/dL) and 2 hours post meal (less than 120 mg/dL)- use your sensor, but write these numbers down at these intervals and email them to me each thursday (important!!) 2) forward me your blood glucose data weekly ([email or web address])- send these numbers each thursday 3) use the following insulin regimen Start NPH 20 units in AM and 40 units at bedtime Humalog 20 units prior to each meal + scale Rx sent to your pharmacy. 4) increase levothyroxine 225 mcg/day as you are doing. Please get blood work repeated prior to f/uin 5 weeks 5) see me in 5 weeks- my office will reach out to schedule this- 3. Ophthalmology: no hx of DR- but not yet evaluated during the . She has upcoming appointment- I advised her to see if this can be moved up to sooner visit. She is at risk for de winnie diagnosis of DR given her elevated A1c early in the . She will return to clinic in 5 weeks- virtual visit ok I spent a total of 40 minutes on the date of the service which included preparing to see the patient, [id number] patient care, completing clinical documentation, obtaining and/or reviewing separately obtained history, performing a medically appropriate examination, counseling and educating the pat ient/family/caregiver, and ordering medications, tests, or procedures. Jabier Weems DO documented in this encounterMercy Health [facility]iffin [facility]03-04-2024 NoteGrant Hospital03-01-2024 Miscellaneous Notes* Telephone Encounter - Isatu Riggs - 12/04/2023 11:40 AM EST Spoke with patient, patient would prefer to follow Dr. Weems and not see MFM . Canceled 12/07/2023 appt with MFM and advised patient that she must keep appointment with Dr. Weems on 12/07/2023. Patient states she understands and will keep appointment with Dr. Weems. * Telephone Encounter - Jabier Weems DO - 12/04/2023 11:30 AM EST They have probably set her up there because she has not been seen here for several weeks due to no-shows. She only needs one person managing her diabetes- if she would prefer to stay in [place] that [facility] (more local)- if she would prefer to see me, she can keep Thursday appointment but needs to showup KB * Telephone Encounter - Isatu Riggs - 12/04/2023 10:52 AM EST Spoke with patient, scheduled 12/07/2023 1:00 virtual appointment. Advised patient how important is to keep the appt with Dr. Weems. Patient states she understands the importance of the appointment. Patient advised that MFM reached out to her to schedule her for an appointment on Thursday12/07/2023 @10:00 am in [place] to help her manage her diabetes. Would it be appropriate to cancel that appointment as you are following her? Please advise. Thank you documented in this encounterMercy Health Tiffin Hospital03-01-2024 Miscellaneous Notes* Telephone Encounter - Nlovia Farfan RN - 12/04/2023 10:00 AM EST 3rd risk assessment form submitted 12/04/2023. Nolvia Farfan RN documented in this encounterMercy Health Tiffin [facility]03-01-2024 Telephone encounter Note * Telephone Encounter - Dasha Pyle RN - 12/04/2023 9:20 AM EST Patient has an appointment today at 9:20 a.m. Called patient twice and left a messages for her as areminder. [facility]03-01-2024 Miscellaneous Notes* Telephone Encounter - Dasha Pyle RN - 12/04/2023 9:20 AM EST Patient has an appointment today at 9:20 a.m. Called patient twice and left a messages for her as areminder. documented in this encounterMercy Health Tiffin Hospital02-29-2024 Miscellaneous Notes* Telephone Encounter - Anuja Lozano RN - 12/03/2023 4:54 PM EST Left voicemail on [facility] or rn's phone to cancel and L&D notified. Anuja Lozano RN * Telephone Encounter - Anuja Lozano RN - 12/03/2023 4:48 PM EST Images from the original note were not included. Mey Almanzar MD P Wstr Ob-Property Assessment Monitor Pool Cancel cs in [place] on 01/25/24- will need to delivery at tertiary care center due to cardiacanomaly documented in this encounterMercy Health Tiffin Hospital02-29-2024 NoteHNO ID: [id number] Author: LANDON POWELL MSW Service: ? Author Type: Or Rn Type: Progress Notes Filed: 12/10/2023 12:31 Note Text: Sw left message for patient to call Sw back to discuss food/community resource needs.[facility]02-29-2024 Miscellaneous Notes* Quick Notes - Mey Almanzar MD - 12/03/2023 12:49 PM EST DM-Pt doing well. Denies vaginal Bleeding, Leaking fluid, or regular Contractions. Pt reports good movement. Pt reports is not checking BS or taking insulin yet but was made aware that insulin was sent to pharmacy for her. Pt reports has appt with endocrinology today. Physical Exam: Gen: female in no apparent distress Abd: soft, Gravid. Non tender to palpation. See flow sheet A/P: @ 29.3 weeks 1) echo- possible coarctation of aorta- will need delivery at [place] with echo- pt to see MFM at next visit. 2) Endocrinology to manage BS- pt is not compliant. Importance of strict control reviewed with patient 3) TSH and HgA1C today. 4) NSTs and BPP weekly starting 31/32 weeks (31 weeks to align with MFM) 5) Delivery- REPEAT CS- at tertiary care center reviewed with patient. 6) Pt declines LARC, Planning Pills. Declines Salpingectomy. Mey Russo MD documented in this encounterMercy Health Tiffin Hospital02-29-2024 Miscellaneous Notes* Telephone Encounter - Isatu Riggs - 12/03/2023 12:32 PM EST Spoke with patient, rescheduled 12/04/2023 @ 9:20 am (virtual appointment) Advised patient to send Dr. Weems her BG numbers, patient advised she will when she gets home from appointment. * Telephone Encounter - Isatu Riggs - 12/03/2023 9:04 AM EST Left voicemail for patient to call [phone] to either confirm she can make appt at 11:20 am or reschedule for 12/04/2023 @ 9:20 am. * Telephone Encounter - Jabier Weems DO - 12/03/2023 8:53 AM EST I have a meeting at noon and patients at 1pm so that is not going to work. There is a 920 tomorrow if she wants to take that (?) KB * Telephone Encounter - Isatu Riggs - 12/03/2023 8:45 AM EST Rosa has an OB appointment at 10:10 , she is afraid she will not be able to log on at 11:20 for her appt. She is asking to change the time to 1:00 pm, she said it is usually just over an hour, do you want her to call when she can log on and just start the appointment later or reschedule? I suggested she just log in once she gets to her car and she said she can do that. Please advise. Thank you documented in this encounterMercy Health Tiffin Hospital02-29-2024 Miscellaneous Notes* Telephone Encounter - Richelle Ellington MA - 12/03/2023 11:05 AM EST Requester: Pharmacy Patients last Endocrinology visit occurred 08/29/23. Follow-up evaluation has been established Upcoming Endocrinology Appointments - Next 365 Days Visit Type Date Time Department VIDEO SPEC EST 12/03/2023 11:20 AM ENDO [facility] . Requested Prescriptions Pending Prescriptions Disp Refills Insulin Syringe-Needle U-100 1 mL 30 gauge x 5/16 syrg [Pharmacy Med Name: RA INS SYRINGE 1 ML 30GX5/16 ] 100 Each 11 Sig: USE THREE TIMES A DAY DIRECTED If patient is due for an appointment please route to provider for refill consideration and also to the endo scheduling pool. PSS NOTE: Patient needs scheduled appointment No documented in this encounterMercy Health Tiffin Hospital02-29-2024 Instructions* Patient Instructions* Terri Mccormick Ma - 12/03/2023 10:08 AM EST SEQUENTIAL SCREENINGS [facility] offers sequential screenings for women who are interested in screenings for chromosomal abnormalities and certain defects during a . The sequential screen combinesultrasound and blood tests to determine the risk of chromosomal abnormalities, including Down's Syndrome (Trisomy 21) and Trisomy 18, as well as open neural tube defects including spina bifida. Ultrasound examination is performed between 11 weeks and 13 weeks gestational age. Blood tests are drawn after the ultrasound and again later in the between 15 and 21 weeks gestational age. Please let your physician know if you are interested in this testing. It will require an appointment withour contract technician. This is not an ultrasound performed by a physician in our office during a routine visit. SIGNS AND SYMPTOMS OF LABOR 1. Contractions every 10 minutes or more often 2. Clear, pink, or brownish fluid (water) leaking from vagina 3. Feeling that baby is pushing down, pressure 4. Low, dull backache 5. Cramps that feel like a period 6. Cramps with or without diarrhea If you notice any of the above symptoms, contact our office at [phone] and ask to speak with anurse. After hours, you can call doctors registry at [phone] OR call [facility] at [phone] ask to have the doctor aeronautical engineer paged. If you consider this an emergency, dial 9-1-0 or go to your nearest emergency department. NEED HELP? Are you dealing with a violent or abusive relationship? Are you a victim of rape or sexual assult? Call [facility] ([place]) 24 hour Crisis Hotline: 524.914.3065 or 423-440-2259. MANUAL Your Guide to a Healthy manual is now on-line. Visit [email or web address] to download your free copy documented in this encounterMercy Health Tiffin Hospital02-27-2024 Miscellaneous Notes* Telephone Encounter - Palomo Isaac RN - 12/01/2023 8:52 AM EST Vm left with my contact info to schedule Rosa for a MFM appt and a FU echo documented in this encounterMercy Health Tiffin Hospital02-26-2024 NoteHNO ID: [id number] Author: TYRELL PIERRE MD Service: ? Author Type: Physician Type: Progress Notes Filed: 11/30/2023 16:13 Note Text: /Pediatric Cardiology Consultation Dory Chou MD MFM NAME: Rosa Cervantes Date of : 1995 Date of Visit: November 30, 2023 Estimated Date of Delivery: 02/15/[address] Chou, I had the pleasure of seeing your patient, . Rosa Cervantes, for a echocardiogram at [facility]. As you know, she is a 28 year old year old female at 29 weeks 0 days gestation who is here for a follow up echocardiogram due to poorly controlled Type 2 Diabetes Mellitus. I first saw her on 11/02/2023. At that time, there were sub-optimal aortic arch and pulmonary vein views. She reported poor control of her blood sugars (generally 150 - 250), so we opted for a repeat third trimester echocardiogram. She has history of TDM, PCOS, hypothyroidism, and asthma. She reports today that she is not checking her blood sugars. She stated that since she was discharged from the hospital (unclear which hospital) on 10/14/2023, she has had difficulty getting the correct insulin (non-Lantus, in sliding scale/insulin pen form). She has not taken her insulin for over a month at this time. HgbA1c 10.1 (Jul 2023), improved to 7.7 (09/26). She was previously on Metformin, now she is taking synthroid, aspirin, and PRN albuterol. She endorses a medication allergy to amoxicillin. She has had an uncomplicated so far. Genetic testing included a low risk NIPT, male fetus. She has a 4 year old daughter with autism and a neuromuscular disorder with incontinence, delayed walking until ~3.5yo. Family history is significant for grandmother with stroke/heart attack in her 20s. Otherwise, no known family history of congenital heart disease, sudden cardiac , pacemakers of congenital anomalies. She denies any alcohol, tobacco, or drug use during the . She plans to deliver at [facility]. A full echocardiogram was performed and reviewed by myself. Please see the full report in Chart Review/Cardiac tab. echocardiogram today was technically challenging due to sub-optimal acoustic windows and movement. Echocardiogram showed normal intracardiac segmental anatomy. The right atrium and ventricle are mildly dilated (RV minor 17.6 mm/Arshad Z+2.99, RV major 28.6 mm/Arshad Z+1.91.) The transverse aortic arch measures mildly hypoplastic (3.3 mm/Z-2.30), the aortic isthmus measures normally (sagittal 3.2 mm/Z-1.51), sub-optimal 3VV. There is abnormal aortic arch flow with flow acceleration (Vmax 1.66 m/s) and diastolic continuation of flow suggestive of possibly evolving coarctation of the aorta. No significant ventricular level shunts. No evidence for hydrops. The ductus venosus, umbilical vein and umbilical artery Dopplers were normal. Echocardiogram Summary: Technically challenging due to sub-optimal acoustic windows and movement. Levocardia with normal intracardiac segmental anatomy (S, D, S). No major intracardiac structural defects. No significant atrioventricular valvar regurgitation; normal biphasic inflow pattern. The right atrium and ventricle are mildly dilated (RV minor 17.6 mm/Arshad Z+2.99, RV major 28.6 mm/Arshad Z+1.91.) Normal wall thickness, normal systolic function. The left ventricle is apex-forming (LV major 27.7 mm/Arshad Z+1.69) with mildly hypoplastic LV minor dimension related to mild left ventricular hypertrophy (LV minor 7.7 mm/Arshad Z-2.18.) Normal systolic function. Left-sided aortic and ductal arches. The transverse aortic arch measures mildly hypoplastic (3.3 mm/Z-2.30), the aortic isthmus measures normally (sagittal 3.2 mm/Z-1.51), sub-optimal 3VV. There is abnormal aortic arch flow with flow acceleration (Vmax 1.66 m/s) and diastolic continuation of flow suggestive of possibly evolving coarctation of the aorta. One left and one right-sided pulmonary vein connect to left atrium. Foramen ovale with normal intrauterine right to left flow. No pericardial effusion or evidence of hydrops. Normal umbilical artery/vein and ductus venosus Doppler profiles. Normal heart rate (146 BPM, NH 117 ms) and rhythm. We reviewed the findings of today's echocardiogram with . Rosa Cervantes and her spouse with the help of a diagram. I previously explained normal and cardiac anatomy and physiology. I explained the study was again technically challenging today. Today the transverse aortic arch measures mildly hypoplastic with an abnormal Doppler flow profile. There is also mild dilation of the RA/RV and mild left ventricular hypertrophy. I am concerned for possible evolving coarctation of the aorta. Ms. Cervantes has an appointment with the OB team as well as he (more content not included)...[facility]02-19-2024 Miscellaneous Notes* Telephone Encounter - Isatu Riggs - 11/23/2023 5:46 PM EST I am about to drive and pick her up so we don't have to keep rescheduling!! LOL * Telephone Encounter - Isatu Riggs - 11/23/2023 5:36 PM EST Spoke with patient, scheduled 12/03/2023 @ 11:20 am (virtual appointment) Encouraged patient to keepappt, patient states she understands and will keep appt. Patient wanted to let you know that they are going to start doing stress tests @ 32 weeks. * Telephone Encounter - Jabier Weems DO - 11/23/2023 5:28 PM EST Please contact and schedule pt to see me (virtual ok) uncontrolled DM in Thanks LIZBETH * Telephone Encounter - Richelle Ellington MA - 11/23/2023 2:56 PM EST Spoke to pharmacist and they stated that patient was given 20 pens on 10/14/23 and NPH and needles are on order to picker / packer tomorrow. Spoke to patient and asked about pens received on 10/14/23. Patient stated that she has no idea where those pens are and she has been giving herself Humalog from the vials that received from the hospital. Confirmed patient has been taking following: Humalog 22 Units subcutaneously three times a day before meals plus scale. Humulin NPH 30 Units subcutaneously daily with breakfast AND 48 Units daily at bedtime. I also advised patient that she can put on her sensor and doesn't need to wait till she picks up insulin. Patient voiced understanding. documented in this encounterMercy Health Tiffin Hospital02-16-2024 Miscellaneous Notes* Telephone Encounter - Lisa Alejandra LPN - 11/20/2023 2:34 PM EST Message placed on JAGDEEP . Will assist in scheduling at next appointment Lisa Alejandra LPN * Telephone Encounter - Nolvia Hay RN - 11/20/2023 2:01 PM EST 27w4d needs weekly BPP and weekly NST starting 32 weeks. documented in this encounterMercy Health Tiffin Hospital02-16-2024 Miscellaneous Notes* Telephone Encounter - Richelle Ellington MA - 11/20/2023 9:36 AM EST BALJEET approved for NPH Auth # [id number] Valid 11/19/23 till 11/17/24 Called patient to notify of approval and phone went straight to [employer] message sent. * Telephone Encounter - Dasha Pyle RN - 11/19/2023 2:37 PM EST Called patient. She did not place the Eliane on, so we do not have pop data since 10/15/23. She is not checking her BG either. She stated I think it is high but I do not have numbers She missed her recent appointment. She stated felt asleep Spoke to the pharmacy. Patient picker / packer her Eliane from them. They will fill it so she can pick it uptomorrow. Both Humulin N and Novolin N are not covered by her insurance. PA started via covermyLonoClouds Ledesma [id number] documented in this encounterMercy Health Tiffin Hospital02-14-2024 Miscellaneous Notes* Quick Notes - Mey Almanzar MD - 11/18/2023 10:39 AM EST DM-Pt doing well. Denies vaginal Bleeding, Leaking fluid, or regular Contractions. Pt reports good movement. Reports has not been checking BS. Reports has not been taking insulin for at least one week - states went to endocrinology and they changed her insulin and she said they were ordering.Pt states is not following DM diet. Physical Exam: Gen: female in no apparent distress A/P: @ 27.2 weeks- non compliant, uncontrolled Type 2 DM 1) BPP and NSTs weekly starting 32 weeks- reviewed with patient 2) importance of compliance reviewed with patient 3) discussed starting to check BS regularly and send to endocrinology routinely 4) RTO 2 weeks 5) Growth us every 4 weeks 6) encouraged regular walking 7) echo scheduled 11/30/23 8)will schedule C/s with DOC 01/25/24 37 weeks for poorly controlled DM. 9) UNCERTAIN ABOUT SALPINGECTOMY- ASK AND SIGN NEXT VISIT 10) REPEAT TSH next visit Mey Russo MD [facility] Instructions* Patient Instructions* Terri Mccormick Ma 11/18/2023 10:21 AM EST SEQUENTIAL SCREENINGS [facility] offers sequential screenings for women who are interested in screenings for chromosomal abnormalities and certain defects during a . The sequential screen combinesultrasound and blood tests to determine the risk of chromosomal abnormalities, including Down's Syndrome (Trisomy 21) and Trisomy 18, as well as open neural tube defects including spina bifida. Ultrasound examination is performed between 11 weeks and 13 weeks gestational age. Blood tests are drawn after the ultrasound and again later in the between 15 and 21 weeks gestational age. Please let your physician know if you are interested in this testing. It will require an appointment withour contract technician. This is not an ultrasound performed by a physician in our office during a routine visit. SIGNS AND SYMPTOMS OF LABOR 1. Contractions every 10 minutes or more often 2. Clear, pink, or brownish fluid (water) leaking from vagina 3. Feeling that baby is pushing down, pressure 4. Low, dull backache 5. Cramps that feel like a period 6. Cramps with or without diarrhea If you notice any of the above symptoms, contact our office at [phone] and ask to speak with anurse. After hours, you can call doctors registry at [phone] OR call [facility] at [phone] ask to have the doctor aeronautical engineer paged. If you consider this an emergency, dial 9-1-1 or go to your nearest emergency department. NEED HELP? Are you dealing with a violent or abusive relationship? Are you a victim of rape or sexual assult? Call [facility] [place] ([place]) 24 hour Crisis Hotline: 367.748.7510 or 452-081-0626. MANUAL Your Guide to a Healthy manual is now on-line. Visit [email or web address] to download your free copy documented in this encounterMer[facility]01-29-[facility]24 NoteHNO ID: [id number] Author: TYRELL PIERRE MD Service: ? Author Type: Physician Type: Progress Notes Filed: 11/02/2023 12:01 Note Text: /Pediatric Cardiology Consultation Dory Chou MD [facility] NAME: Rosa Cervantes Date of : 1995 Date of Visit: November 02, 2023 Estimated Date of Delivery: 02/15/[address] Chou, I had the pleasure of seeing your patient, Ms. Rosa Cervantes, for a echocardiogram at [facility]. As you know, she is a 28 year old year old female at 25 weeks 0 days gestation who is here for a screening echocardiogram due to poorly controlled Type 2 Diabetes Mellitus. She has history of TDM, PCOS, hypothyroidism, and asthma. She reports that she checks her sugars every 2 hours, blood sugar generally trends 150 - 250. Her fasting/AM levels are generally ~130. HgbA1c 10.1 (Jul 2023), improved to 7.7 (09/26). She was previously on Metformin, now she is taking insulin, synthroid, aspirin, and PRN albuterol. She endorses a medication allergy to amoxicillin. She has had an uncomplicated so far. Genetic testing included a low risk NIPT, male fetus. She has a 4 year old daughter with autism and a neuromuscular disorder with incontinence, delayed walking until ~3.5yo. Family history is significant for grandmother with stroke/heart attack in her 20s. Otherwise, no known family history of congenital heart disease, sudden cardiac , pacemakers heart transplants. No known family history of congenital anomalies. She denies any alcohol, tobacco, or drug use during the . She plans to deliver at [facility]. A full echocardiogram was performed and reviewed by myself. Please see the full report in Chart Review/Cardiac tab. echocardiogram today was technically challenging due to sub-optimal acoustic windows and movement. Echocardiogram showed normal intracardiac segmental anatomy. The biventricular size and function was qualitatively normal. No significant left- right size discrepancy. No significant ventricular level shunts. No evidence for hydrops. The ductus venosus, umbilical vein and umbilical artery Dopplers were normal. Echocardiogram Summary: Technically challenging due to sub-optimal acoustic windows and movement. Levocardia with normal intracardiac segmental anatomy (S, D, S). No major intracardiac structural defects. No significant atrioventricular valvar regurgitation; normal biphasic inflow pattern. Normal left-sided aortic and ductal arches. Normal aortic isthmus 2.9 mm on sagittal view (Pasquini z-score -0.09); sub-optimal 3VV. Normal biventricular size, wall thickness, and systolic function. No significant right/left ventricular size discrepancy. Only one left-sided pulmonary vein connect to left atrium. Normal systemic venous connections. Foramen ovale with normal intrauterine right to left flow. No pericardial effusion or evidence of hydrops. Normal umbilical artery/vein, ductus venosus, and MCA Doppler profiles. Normal heart rate (147 BPM, NH 117 ms) and rhythm. We reviewed the findings of today's echocardiogram with . Rosa Cervantes and her spouse with the help of a diagram. I explained normal and cardiac anatomy and physiology. I explained the study was technically challenging today. Overall the cardiac anatomy appears normal. There were suboptimal views of the aortic arch and we were unable to obtain the 3VV. On Doppler velocities and limited 2D sagittal measurements, the arch appears normal. There is no apparent ventricular hypertrophy. We discussed the importance of excellent glucose control during and the risk for developing ventricular hypertrophy due to the high glucose levels. We discussed the natural history of diabetes-related LVH and discussed that in severe cases the heart has issues with ventricular filling and rarely outflow obstruction. Postnatally, some infants require medication (beta blockers) to slow the heart rate to augment ventricular filling or medications to support ventricular function (inotropes). Thankfully, postnatally the hypertrophy improves with time. I explained there is no ventricular hypertrophy present today. With tight glucose control this will remain stable, however, we will plan for a repeat echocardiogram in 4-6 weeks to re-evaluate the degree of hypertrophy. There were suboptimal views of the pulmonary veins and aortic arch. I also explained the limitations of a echocardiogram, including that the foramen ovale and ductus arteriosus are normal structures and are present in the fetus today, however, we are unable to predict if they close normally after . In addition, we reviewed that certain cardiac anomalies are challenging to diagnose on echocardio (more content not included)...[facility]01-19-2024 Telephone encounter Note* Telephone Encounter - Dasha Pyle RN - 10/23/2023 1:31 PM EST Patient's is requesting BG test supplies She did not have her Eliane on this week and she did not check her BG. [facility]01-[facility] Miscellaneous Notes* Telephone Encounter - Dasha Pyle RN - 10/23/2023 1:31 PM EST Patient's is requesting BG test supplies She did not have her Eliane on this week and she did not check her BG. documented in this encounterMer[facility]01-06-2024 NoteHNO ID: [id number] Author: SONU LINO MD Service: Endocrinology Author Type: Physician Type: Plan of Care Filed: 10/10/2023 11:11 Note Text: ENDOCRINOLOGY INPATIENT PROGRESS NOTE SERVICE DATE: 10/10/2023 SERVICE TIME: 11:08 AM INTERVAL HPI: +COVID test in setting of mild URI symptoms Inpatient Medications: Current Facility-Administered Medications Medication Dose Route Frequency Provider Last Rate Last Admin insulin lispro 22 Units injection (rapid acting) (ADMElog) 22 Units SUBCUTANEOUS w MEALS Sonu Lino MD [START ON 10/11/2023] insulin NPH 30 Units injection (intermediate acting) 30 Units SUBCUTANEOUS DAILY Sonu Lino MD insulin NPH 48 Units injection (intermediate acting) 48 Units SUBCUTANEOUS AT BEDTIME Sonu Lino MD insulin NPH 5 Units injection (intermediate acting) 5 Units SUBCUTANEOUS ONCE Sonu Lino MD cetirizine 10 mg tab(s) (ZYRTEC) 10 mg ORAL DAILY Hien Cervantes MD 10 mg at 10/10/23 0832 aspirin 81 mg chewable tab(s) 81 mg ORAL DAILY Hien Cervantes MD 81 mg at 10/10/23 0831 nirmatrelvir tablet 300 mg (150 mg x 2) and ritonavir tablet 100 mg in a dose pack (PAXLOVID) 3 tablet ORAL BID Bisi Wilcox MD 3 tablet at 10/10/23 0835 albuterol HFA 90 mcg/actuation 2 Puff (PROVENTIL HFA, VENTOLIN HFA) 2 Puff INHALATION q 4 H PRN Gianna Moody MD levothyroxine 200 mcg tab(s) (SYNTHROID) 200 mcg ORAL DAILY Gianna Moody MD 200 mcg at 10/10/23 0656 acetaminophen 1,000 mg tab(s) (TYLENOL) 1,000 mg ORAL Pre-Op PRN Gianna Moody MD sodium citrate-citric acid 500-334 mg/5 mL 30 mL oral liquid (BICITRA) 30 mL ORAL Pre-Op PRN Gianna Moody MD metoclopramide HCl 10 mg injection (REGLAN) 10 mg INTRAVENOUS Pre-Op PRN Gianna Moody MD NaCl 0.9% iv flush bag 20 mL INTRAVENOUS PRN Gianna Moody MD multivitamin 28 mg iron- 800 mcg 1 tablet (CLASSIC ) 1 tablet ORAL DAILY Gianna Moody MD 1 tablet at 10/10/23 0832 ondansetron (PF) 4 mg injection (ZOFRAN) 4 mg INTRAVENOUS q 6 H PRN Gianna Moody MD metoclopramide HCl 10 mg tab(s) (REGLAN) 10 mg ORAL q 6 H PRN Gianna Moody MD Or metoclopramide HCl 10 mg injection (REGLAN) 10 mg INTRAVENOUS q 6 H PRN Gianna Moody MD acetaminophen 650 mg tab(s) (TYLENOL) 650 mg ORAL q 4 H PRN Gianna Moody MD 650 mg at 10/09/23 204 ceFAZolin 3 g in D5W 100 mL (ANCEF) 3 g INTRAVENOUS Pre-Op PRN Gianna Moody MD azithromycin 500 mg in D5W 250 mL Vial-Bag (ZITHROMAX) 500 mg INTRAVENOUS Pre-Op PRN Gianna Moody MD dextrose 40 % 15 g 15 g ORAL PRN Gianna Moody MD Or glucagon 1 mg injection 1 mg INTRAMUSCULAR PRN Gianna Moody MD Or dextrose 10% iv bolus 12.5 g INTRAVENOUS PRN Gianna Moody MD insulin lispro injection (rapid acting) (ADMElog) SUBCUTANEOUS w MEALS Sonu Lino MD 1 Units at 10/10/23 0833 PHYSICAL EXAM: BP 117/67 Pulse 91 Temp 36.7 ?C (98.1 ?F) (Oral) Resp 20 Ht 160 cm (5' 3 ) Wt 109 kg (240 lb 4.8 oz) LMP 05/06/2023 (Exact Date) SpO2 98% BMI 42.57 kg/m? LABS AND IMAGING: Hemoglobin A1C (%) Date Value 2023 7.7 07/06/2023 10.1 05/25/2019 7.5 BMP Latest Ref Rng AND Units 10/08/2023 07/06/2023 05/27/2019 GLUCOSE 74 - 99 mg/dL 156(H) 262(H) 129(H) BUN 7 - 21 mg/dL 5(L) 8 10 CREATININE 0.58 - 0.96 mg/dL 0.35(L) 0.32(L) 0.50(L) SODIUM 136 - 144 mmol/L 138 133(L) 138 POTASSIUM 3.7 - 5.1 mmol/L 3.8 4.2 4.0 CHLORIDE 97 - 105 mmol/L 105 101 106 CO2 22 - 30 mmol/L 19(L) 16(L) 17(L) ANION GAP 9 - 18 mmol/L 14 16 15 CALCIUM, TOTAL 8.5 - 10.2 mg/dL 9.2 9.5 9.8 eGFR >=60 mL/min/1.73m? 144 148 >60 EGFR- >60 - - >60 EGFR-ALL OTHER RACES >60 . - - >60 Hospital glucose readings: Glucose, Point of Care (mg/dL) Date/Time Value 10/10/2023 0830 141 (A) 10/09/2023 2242 139 (A) 10/09/2023 1733 191 (A) 10/09/2023 1420 183 (A) IMPRESSION / RECOMMENDATIONS: 28yo WF with DM2 since 2019, currently 21w3d , hypothyroidism, admitted on 10/08/2023 for glucose control, endocrine consulted for DM management Reviewed CGMS data from yesterday and overnight, glycemic control in evening was excellent, then with mild spike in BG last night which may have been due to reported anxiety, following by drop in glucose after receiving bedtime NPH. Overall, so far appears that inadequate glycemic control as outpatient is due to non-adherence/inconsistency with insulin regimen Recommendations: - Adjust Basal Insulin: NPH 30u in AM (give 5u now since she already got 25u this AM) and 48u in PM - Increase Prandial Insulin: Admelog 22 units with meals three times daily - Continue Supplemental Sliding Scale: admelog custom scale with meals: If blood sugar is 120-150 take 1 more unit If blood sugar is 151-200 take 2 more units If blood sugar is 201-250 take 4 more units If blood sugar is 251-300 take 6 more units If blood sugar is 301-350 take 8 more units If blood sugar is 351-400 take 10 more units If blood oropeza (more content not included)...[id number] NoteHNO ID: [id number] Author: BISI WILCOX MD Service: Obstetrics Author Type: Resident Type: Progress Notes Filed: 10/10/2023 10:48 Note Text: Attestation signed by Bisi Wilcox MD at 10/10/2023 10:48 AM (Updated) Maternal- Medicine Staff Note I saw and evaluated the patient. I personally obtained the ledesma and critical portions of the history and physical exam. I reviewed the resident?s documentation and discussed the patient with the resident. I agree with the resident. I agree with the resident?s medical decision making as documented in the resident?s note. 28 year old at 21w5d admitted for glycemic control in the setting of poorly controlled type 2 dm. S/p education. Insulin adjusted by endocrinology and sugars are improved. On low dose asa Completing baseline 24 hour urine protein. Hypothyroid with high tsh but was not taking synthroid consistently at home. Has covid. Mild symptoms. Right ear pain - on exam, tms without erythema, mild fluid behind left. No evidence of bacterial infection now but precautions reviewed. Educated on need to complete paxlovid and reasons to return to the hospital. Was on acyclovir because a prior partner had hsv. Not the current partner. She denies any outbreaks. Ok to stop. Likely stable for discharge but will await endocrinology input. Appreciate their help Ob and mfm follow up planned. Bisi Wilcox MD OBSTETRICS ANTEPARTUM PROGRESS NOTE SERVICE DATE: 10/10/2023 SERVICE TIME: 7:18 AM ASSESSMENT/PLAN: 28yo at 21w5d admitted for optimization of glycemic control in the setting of T2DM. T2DM - Last HbA1c 7.7% on 09/08 - Current regimen: NPH 25u qAM + 45u qHS, Ademalog 20u TID with meals with SSI - s/p Diabetes education consult (10/09) - Started on ASA81 daily for PreE ppx - Endocrinology following, appreciate recs - Plan for echo as outpatient - Continue CCD and Accuchecks AC/HS (currently has Eliane CGM in place however will need fingerstick to confirm hypoglycemia for BG <60) Recent Labs 10/09/23 2242 10/09/23 1733 10/09/23 1420 10/09/23 1101 10/09/23 0907 10/08/23 2326 10/08/23 2217 10/08/23 1843 PCGLUCOSE 139* 191* 183* 115* 128* 149* 144* 124* FWB - NST Daily - Last growth US (09/08): EFW 75%, AC 90%, 0#7oz - GBS unk COVID+ - Reports cough/congestion and now new onset R eat pain similar to prior ear infection pain - Satting 97-99% on RA - Continue Paxlovid x5d (10/09-10/13) - Suspect viral otitis media, no indication for abx at this Asthma, Seasonal Allergies - Continue Cetirizine 10mg daily and Albuterol PRN Hypothyroidism - Prescribed Synthroid 200mcg daily however pt reported not taking - Admit TSH 6.670 - Continue synthroid 200mcg daily - Endo following, appreciate recs HSV: Continue Acyclovir TID for ppx Routine - Tdap pending - Diet/IVF: CCD, HLIV - Labs: q72h TANDS - DVT Ppx: SCDs Dispo: Inpatient until improved glycemic control Plan of care discussed with: Provider, RN, Patient. SUBJECTIVE: Patient reports persistent cough/congestion and now new onset R ear pain which she states is similar to prior R ear infections. Denies chest pain or SOB. Denies contractions, VB, or LOF; endorses flutters. OBJECTIVE: PHYSICAL EXAM: Gen: Well-appearing, NAD, alert and oriented HEENT: Mild pain on palpation of bilateral maxilla and frontal sinuses. Mild tenderness to palpation of R temporal area; no tenderness on L temporal area. CV: Warm and well perfused Pulm: Unlabored breathing on RA Abd: Soft, gravid, non-tender Lower Ext: No edema symmetric b/l, non-tender, non-erythematous; moving all extremities LAST VITALS: Pulse BP Resp O2 Sat Temp Pain 91 117/67 20 98 % 36.7 ?C (98.1 ?F) 5 Avg Min Max Vitals (last 12 hours) Flowsheet Row Name Average Min Max BP: Systolic 116 115 117 BP: Diastolic 66.50 66 67 Temp 36.6 ?C (97.9 ?F) 36.5 ?C (97.7 ?F) 36.7 ?C (98.1 ?F) Pulse 96.33 91 100 Resp 19 18 20 SpO2 98.5 % 98 % 99 % HT/WT/BMI: Height Weight BMI 160 cm (5' 3 ) 109 kg (240 lb 4.8 oz) 42.57 LABS ABO/RH: 10/08/2023: A; Positive RUBELLA: 07/06/2023: Positive HANDH: Hematocrit (%) Date Value 10/08/2023 36.0 Hemoglobin (g/dL) Date Value 10/08/2023 12.4 Diagnostic tests reviewed for today's visit: Most recent labs and imaging results. SIGNATURE: Hien Cervantes MD PATIENT NAME: Rosa Cervantes DATE: 10/10/2023 TIME: 7:18 [facility]01-05-2024 NoteHNO ID: [id number] Author: EDGARDO WELLS RN Service: Diabetes Education Author Type: Registered Nurse Type: Patient Education Filed: 10/09/2023 11:22 Note Text: DIABETES EDUCATION INPATIENT PROGRESS NOTE INITIAL OR FOLLOW-UP: First diabetes care AND education visit this admission VISIT TYPE: in-person SERVICE DATE: 10/09/2023 SERVICE TIME: 0935 RECOMMENDATIONS TO DISCHARGING PROVIDER FOR DISCHARGE ORDERS: Place outpatient referral for CONSULT TO DIABETES EDUCATION (Epic Code [id number]) Please place referral for ENDOCRINOLOGY RN IV THERAPY . Follow-up with PCP after discharge Follow up with endocrinology provider after discharge Patient has all supplies at home. Patient will benefit from meeting with outpatient endocrinology RD for meal planning (see above epic codes to place referrals. Patient has all supplies at home. RECOMMENDATIONS TO INPATIENT NURSE: N/A PATIENT HISTORY/ASSESSMENT: Previously diagnosed: Type 2 Treatment prior to hospitalization:Outpatient Diabetes Regimen per Dr. Lino's note (copy/pasted) NPH 25u in AM and 50u in PM Humalog 20u TID qAC Has meter: Patient uses FreeStyle Eliane 3 CGM, but says she has blood glucose monitor for back up. Admission Dx: Disorder of blood glucose Last HbA1c and date: Hemoglobin A1C (%) Date Value 2023 7.7 07/06/2023 10.1 05/25/2019 7.5 INTERVENTIONS/TOPICS COVERED: -Diabetes Basics: diabetes disease process -Monitoring: BG targets, rationale for HGM, logging, testing frequency, and sharps disposal Patient verbalized her sensor readings are always low during the night. Educator advised patient on compression lows. Reviewed appropriate times when finger stick may need to be done. -Healthy Eating: impact of carbs on BG, Plate Method, basic carb counting, and foods with carbs -Medications: medication safety/timing, medication side effects, insulin storage, site selection/rotation, pen injection instruction, sharps disposal, basal insulin, prandial insulin, how to use a correction/sliding scale, and injectable insulin discussed: lispro (Humalog) and NPH Insulin Patient's significant other gives patient all of her insulin at home. Patient's significant other able to verbalize correct steps for preparing and administering insulin. Both patient and significant other able to verbalize understanding through teach back how to calculate sliding scale and add to meal time dose. Patient/significant other advised not to take meal time insulin when meal is skipped. Patient/significant other advised to follow discharge instructions for medication, doses, and frequency. -Physical Activity: benefits of exercise and exercise safety -Problem Solving: hypoglycemia s/sx/tx, hyperglycemia s/sx/tx, sick day rules, and pattern management -Reducing Risks: risks to mom and baby with elevated blood sugars during EDUCATION: Cognitive ability: Alert and Oriented. Motivation to learn: Interested. Barriers to learning: None Family support: High - Very involved in pt care Education Type: Individual instruction Written instruction - handouts Verbal instruction Demonstration-Hands on Learning Response to education: States/Identifies. Education provided to: Patient and Significant Other. Teachback method used: Yes Handouts provided: Healthy You: Survival Skills, Healthy You: Diabetes and , and log book, 1 sample FreeStyle Eliane 3 sensor in case patient needed to change it in hospital. Time Spent (Minutes): 45 SIGNATURE: Edgardo Wells RN PATIENT NAME: Rosa Cervantes DATE: October 09, 2023 TIME: 8:37 AM PAGER: [phone] NoteHNO ID: [id number] Author: BISI WILCOX MD Service: Obstetrics Author Type: Resident Type: Progress Notes Filed: 10/09/2023 14:44 Note Text: Attestation signed by Bisi Wilcox MD at 10/09/2023 2:44 PM Maternal- Medicine Staff Note I saw and evaluated the patient. I personally obtained the ledesma and critical portions of the history and physical exam. I reviewed the resident?s documentation and discussed the patient with the resident. I agree with the resident. I agree with the resident?s medical decision making as documented in the resident?s note. 28 year old at 21w4d admitted yesterday for glycemic control due to history of poorly controlled type 2 diabetes. She had a recent hba1c >10. She follows with Dr. Weems and Effie. She admits to non compliance with blood sugars and insulin. She had an equivocal early protein to creatinine ratio. She has not yet started low dose aspirin for preeclampsia prevention. She also reports over a month of a mild cough but now new uri symptoms and worsening cough this week. The new symptoms started pm of 10/04. She has asthma that is historically mild. She also has hypothyroidism and admits to intermittent compliance with synthroid. BP 111/56 Pulse 91 Temp 36.8 ?C (98.2 ?F) (Oral) Resp 18 Ht 160 cm (5' 3 ) Wt 109 kg (240 lb 4.8 oz) LMP 05/06/2023 (Exact Date) BMI 42.57 kg/m? No acute distress Component Latest Ref Rng AND Units 10/08/2023 10/08/2023 10/09/2023 10/09/2023 10/09/2023 10/09/2023 10/09/2023 10:17 PM 11:26 PM 9:07 AM 10:12 AM 11:01 AM 11:54 AM 2:20 PM COVID 19 Result See comment Detected (A) Influenza A PCR Not Detected Not detected Influenza B PCR Not Detected Not detected RSV PCR Not Detected Not detected Glucose, Point of Care 74 - 99 mg/dL 144 (A) 149 (A) 128 (A) 115 (A) 183 (A) TSH 0.270 - 4.200 mIU/L 6.670 (H) Appreciate endocrine consultation. Home insulin was increased and am NPH started. Continue to watch closely. She now has a cgm to help with compliance. She admits to forgetting diabetes and nutrition education so these were done today. Appreciate assistance. She does not remember diabetes in risks so we reviewed them. Pre- type II diabetes We reviewed the maternal and risks of type II diabetes in . We reviewed the increased risk of miscarriage (2 to 3 time increase risk ) and of anomalies (including cardiac defects, SCHOOL LIBRARIAN anomalies, skeletal anomalies such as caudal regressrion, gastrointestinal anomalies, and renal anomalies) especially with a hemoglobin A1C greater than 8 in the first trimester. Plan for echo soon. We discussed that those with pre- diabetes have increased risks of preeclampsia, , and stillbirth. We discussed the increased risks of macrosomia, shoulder dystocia and problems that go along with it, functional prematurity/RDS, jaundice, hypoglycemia, and increased risk of needing a section. Along with increased risk of wound infection and dehiscence. We reviewed the importance of weight loss after delivery, we reviewed weight gain goals the and the importance of compliance with diet and exercise. We discussed the lifetime risks of poorly controlled diabetes. Risks of hyperglycemia and hypoglycemia upon explained in detail. Given high risk for pre-eclampsia, we started low dose aspirin today. Discussed importance of compliance of levothyroxine. Newly covid positive but symptom positive for 4-5 days. Some mild respiratory symptoms but no fever or hypoxia. Whole family at home is sick. Discussed risks of covid in and how women with diabetes, asthma, and are high risk for mod to severe disease and how paxlovid (must be started today) might decrease the risk for mod/severe disease. She would like to try this. Limitations in senior living data reviewed. Bisi Wilcox MD OBSTETRICS ANTEPARTUM PROGRESS NOTE SERVICE DATE: 10/09/2023 SERVICE TIME: 6:25 AM ASSESSMENT/PLAN: Rosa Cervantes is a 28 year old at 21w4d admitted as direct admission for poorly controlled type 2 diabetes. Type 2 Diabetes -endocrine consult, appreciate recommendations: NPH 25 units in AM, 50 units in PM, humalog 20 units TID qAC, valeria SSI -carb controlled diet -accuchecks AC/HS -glucoses overall improved overnight but still not within goal, will follow up fasting glucose this AM and defer to endocrine for adjustments -will need echo at 22 weeks if still inpatient Recent Labs 10/08/23 2326 10/08/23 2217 10/08/23 1843 10/08/23 1603 10/08/23 1317 PCGLUCOSE 149* 144* 124* 153* 199* Hypothyroidism -synthroid 200 mcg daily HSV -on acyclovir for ppx Asthma -albuterol PRN (more content not included)...[id number] [facility]12-13-2023 Miscellaneous Notes* Telephone Encounter - Jabier Weems DO - 09/16/2023 12:48 PM EST Sent the following via Bubbleballt: Ananth Rosa- your TSH/T4 have improved and are now at goal for (total T4 reference range is1.5 times upper limit of normal, so this value is at goa)- continue levothyroxine 200 mcg/day as you are doing. Your HbA1c has improved which is good, but still not at goal for . I will continue to work closely with you to maintain proper glycemic control- thanks! Dr Weems documented in [facility]Mer[facility]12[facility] Miscellaneous Notes* Telephone Encounter - Richelle Ellington MA - 09/14/2023 8:56 AM EST Requester: Patient Patients last Endocrinology visit occurred 09/01/23. Follow-up evaluation has been established Upcoming Endocrinology Appointments - Next 365 Days Visit Type Date Time Department VIDEO SPEC EST 10/12/2023 8:40 AM ENDO [facility] . Requested Prescriptions Pending Prescriptions Disp Refills Blood-Glucose Sensor (FREESTYLE ELIANE 3 SENSOR) osman 2 Each 3 Sig: Use as instructed. If patient is due for an appointment please route to provider for refill consideration and also to the endo scheduling pool. PSS NOTE: Patient needs scheduled appointment No documented in this encounterMercy [facility]12-05-2023 Miscellaneous Notes* Result Encounter Note - Juan David De Leon MD - 2023 12:15 PM EST Anatomy ultrasound reviewed. No abnormalities identified. Follow up as clinically indicated. Pleaseplace copy in ob chart. Schedule f/u US In 4 weeks w/ next appointment. Juan David De Leon MD documented in this encounterMer[facility]12-05-2023 [facility]CleK[facility] History of Present illness Narrative* Dory Chou MD - 2023 8:58 AM EST MFM Progress Note Rosa is 28yo @ 17w1d here for early anatomy ultrasound and [facility] follow up visit due to history of T2DM poorly controlled at time of conception. Since last visit she has established with Dr Weems and is doing much better - TSH improved, insulin doses have been adjusted and repeat Hgb A1c isplanned. Denies obstetric complaints. BP 110/84 Wt 241 lb 12.8 oz (109.7 kg) LMP 05/06/2023 (Exact Date) BMI 42.83 kg/m A&O, NAD Normal inspiratory effort Abdomen soft, nontender during US exam Problem List Items Addressed This Visit Endocrinology Other specified hypothyroidism Overview 09/08/23: Established with Dr Weems this Synthroid 200mcg daily TSH Date Value 08/25/2023 3.300 mIU/L 07/06/2023 27.700 mIU/L 05/25/2019 2.450 uU/mL Poorly controlled diabetes mellitus (HCC) Overview Early HgbA1c 10.1% (07/06/23) Established with Dr Weems this 09/08/23 insulin regimen: NPH 50/75 Lispro - echocardiogram -Serial growth ultrasounds -Twice weekly testing 32 weeks -Delivery 37-39 weeks (unless indicated earlier) Relevant Orders 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 wasdue to failed induction due to bradycardia in the setting of poorly controlled diabetes. TKRN Obesity affecting , antepartum - Primary Other Visit Diagnoses Insulin controlled gestational diabetes mellitus (GDM) in first trimester Hypothyroidism affecting in first trimester 12 weeks gestation of Medical Decision Making: Problems: Moderate: Acute complicated injury and 2+ stable chronic illnesses Risk: Moderate: Moderate risk from testing/treatment Medical Decision Making Level: 4 - Moderate Dory Chou MD 2023 8:59 AM documented in this encounterCleveland [id number] NoteHNO ID: [id number] Author: Isatu Riggs Service: ? Author Type: ? Type: Progress Notes Filed: 08/31/2023 4:27 PM Note Text: Spoke with patient, scheduled 10/12/2023 @ 8:40 am (virtual appointment)[facility] Discharge instructions Patient Education 08/30/2023 18:36:53 Acute Otitis Media with Infection (Child) Acute Otitis Media with Infection (Child) Your child has a middle ear infection (acute otitis media). It is caused by bacteria or fungi. The middle ear is the space behind the eardrum. The eustachian tube connects the ear to the nasal passage. The eustachian tubes help drain fluid from the ears. They also keep the air pressure equal insideand outside the ears. These tubes are shorter and more horizontal in children. This makes it more likely for the tubes to become blocked. A blockage lets fluid and pressure build up in the middle ear. Bacteria or fungi can grow in this fluid and cause an ear infection. This infection is commonly known as an earache. The main symptom of an ear infection is ear pain. Other symptoms may include pulling at the ear, being more fussy than usual, decreased appetite, and vomiting or diarrhea. Your child s hearing may also be affected. Your child may have had a respiratory infection first. An ear infection may clear up on its own. Or your child may need to take medicine. After the infection goes away, your child may still have fluid in the middle ear. It may take weeks or months for this fluid to go away. During that time, your child may have temporary hearing loss. But all other symptoms of the earache should be gone. Home care Follow these guidelines when caring for your child at home: The healthcare provider will likely prescribe medicines for pain. The provider may also prescribe antibiotics or antifungals to treat the infection. These may be liquid medicines to give by mouth. Orthey may be ear drops. Follow the provider s instructions for giving these medicines to your child. Because ear infections can clear up on their own, the provider may suggest waiting for a few days before giving your child medicines for infection. To reduce pain, have your child rest in an upright position. Hot or cold compresses held against the ear may help ease pain. Keep the ear dry. Have your child wear a shower cap when bathing. To help prevent future infections: Don't smoke near your child. Secondhand smoke raises the risk for ear infections in children. Make sure your child gets all appropriate vaccines. Do not bottle-feed while your baby is lying on his or her back. (This position can cause middle earinfections because it allows milk to run into the eustachian tubes.) If you breastfeed, continue until your child is 6 to 12 months of age. To apply ear drops: 1. Put the bottle in warm water if the medicine is kept in the refrigerator. Cold drops in the ear are uncomfortable. 2. Have your child lie down on a flat surface. Gently hold your child s head to 1 side. 3. Remove any drainage from the ear with a clean tissue or cotton swab. Clean only the outer ear. Don t put the cotton swab into the ear canal. 4. Straighten the ear canal by gently pulling the earlobe up and back. 5. Keep the dropper a half-inch above the ear canal. This will keep the dropper from becoming contaminated. Put the drops against the side of the ear canal. 6. Have your child stay lying down for 2 to 3 minutes. This gives time for the medicine to enter the ear canal. If your child doesn t have pain, gently massage the outer ear near the opening. 7. Wipe any extra medicine away from the outer ear with a clean cotton ball. Follow-up care Follow up with your child s healthcare provider as directed. Your child will need to have the ear rechecked to make sure the infection has gone away. Check with the healthcare provider to see when they want to see your child. Special note to parents If your child continues to get earaches, he or she may need ear tubes. The provider will put small tubes in your child s eardrum to help keep fluid from building up. This procedure is a simple and works well. When to seek medical advice Unless advised otherwise, call your child's healthcare provider if: Your child is 3 months old or younger and has a fever of 100.4 F (38 C) or higher. Your child may need to see a healthcare provider. Your child is of any age and has fevers higher than 104 F (40 C) that come back again and again. Call your child's healthcare provider for any of the following: New symptoms, especially swelling around the ear or weakness of face muscles Severe pain Infection seems to get worse, not better Neck pain Your child acts very sick or not himself or herself Fever or pain do not improve with antibiotics after 48 hours 0044-1528 [employer]. [address] [place] [address], [place] [address]. All rights reserved. This information is not intended as a substitute for professional medical care. Always follow yourhealthcare professional's instructions. Follow Up Care 08/30/2023 17:26:12 With:Follow up with primary care provider Address:Unknown When:2-4 days [facility] 11-26-2023 Note Discharge Instructions Thank you for allowing [facility] to assist you with your healthcare needs. The following is importantdischarge information regarding your hospital visit. Diagnosis from Today's Visit Acute otitis media Cough Ear ache What to Do Next Instructions from Your Care Team No qualifying data available. Post Acute Orders No qualifying data available. You Need to Schedule the Following Appointments Follow Up with Follow up with primary care provider When Within 2-4 days Allergies Red Dye (hives) Wheat (Hives) amoxicillin (throat closing) Medications Please ask your primary doctor or pharmacist before taking any other medication not listed, including over the counter drugs, herbal medications, vitamins and or supplements as they may interact withyour home medications. What How Much When Why Instructions Last Dose New cefdinir (cefdinir 300 mg oral capsule) 1 cap by mouth Every 12 hours Duration: 7 Days Printed Prescription Unchanged acetaminophen (acetaminophen 500 mg oral tablet) 2 tab(s) by mouth Three (3) times a day as needed for pain or fever Unchanged DME (Pen needles 8 mm) See instructions Diabetes mellitus, type 2 QID testing for type 2 DM Unchanged famotidine (Pepcid 20 mg oral tablet) 1 tab(s) by mouth Two (2) times a day Unchanged insulin aspart (Novolog) (NovoLOG FlexPen 100 units/ mL injectable solution) 5 unit(s) Subcutaneous Three (3) times a day before meals Diabetes mellitus, type 2 Duration: 90 Days Unchanged insulin glargine (Lantus Solostar Pen 100 units/ mL 3 mL Pen) 25 unit(s) Subcutaneous Daily at bedtime Diabetes mellitus, type 2 Duration: 90 Days dose increased Unchanged levothyroxine (levothyroxine 25 mcg (0.025 mg) oral tablet) 1 tab(s) by mouth Once a day Hypothyroidism Duration: 60 Days Total dose 200mcg Unchanged levothyroxine (Synthroid 175 mcg (0.175 mg) oral tablet) 1 tab(s) by mouth Once a day Hypothyroid Unchanged lisinopril (lisinopril 2.5 mg oral tablet) 1 tab(s) by mouth Once a day Diabetes mellitus, type 2 Duration: 90 Days Unchanged metFORMIN (metFORMIN 500 mg oral tablet) 2 tab(s) by mouth Two (2) times a day Unchanged pravastatin (pravastatin 10 mg oral tablet) 1 tab(s) by mouth Once a day Diabetes mellitus, type 2 Unchanged valACYclovir (Valtrex 1 g oral tablet) 1 tab(s) by mouth Two (2) times a day Please take this list to your next doctor s visit. Bring all medications you take, including over the counter medications, herbals and other supplements with you to your doctor s visit. Patients and families are reminded to discard old lists and to update any records with all medication providers or retail pharmacies. Education Materials Acute Otitis Media with Infection (Child) Your child has a middle ear infection (acute otitis media). It is caused by bacteria or fungi. The middle ear is the space behind the eardrum. The eustachian tube connects the ear to the nasal passage. The eustachian tubes help drain fluid from the ears. They also keep the air pressure equal insideand outside the ears. These tubes are shorter and more horizontal in children. This makes it more likely for the tubes to become blocked. A blockage lets fluid and pressure build up in the middle ear. Bacteria or fungi can grow in this fluid and cause an ear infection. This infection is commonly known as an earache. The main symptom of an ear infection is ear pain. Other symptoms may include pulling at the ear, being more fussy than usual, decreased appetite, and vomiting or diarrhea. Your child s hearing may also be affected. Your child may have had a respiratory infection first. An ear infection may clear up on its own. Or your child may need to take medicine. After the infection goes away, your child may still have fluid in the middle ear. It may take weeks or months for this fluid to go away. During that time, your child may have temporary hearing loss. But all other symptoms of the earache should be gone. Home care Follow these guidelines when caring for your child at home: The healthcare provider will likely prescribe medicines for pain. The provider may also prescribe antibiotics or antifungals to treat the infection. These may be liquid medicines to give by mouth. Orthey may be ear drops. Follow the provider s instructions for giving these medicines to your child. Because ear infections can clear up on their own, the provider may suggest waiting for a few days before giving your child medicines for infection. To reduce pain, have your child rest in an upright position. Hot or cold compresses held against the ear may help ease pain. Keep the ear dry. Have your child wear a shower cap when bathing. To help prevent future infections: Don't smoke near your child. Secondhand smoke raises the risk for ear infections in children. Make sure your child gets all appropriate vaccines. Do not bottle-feed while your baby is lying on his or her back. (This position can cause middle earinfections because it allows milk to run into the eustachian tubes.) If you breastfeed, continue until your child is 6 to 12 months of age. To apply ear drops: 1. Put the bottle in warm water if the medicine is kept in the refrigerator. Cold drops in the ear are uncomfortable. 2. Have your child lie down on a flat surface. Gently hold your child s head to 1 side. 3. Remove any drainage from the ear with a clean tissue or cotton swab. Clean only the outer ear. Don t put the cotton swab into the ear canal. 4. Straighten the ear canal by gently pulling the earlobe up and back. 5. Keep the dropper a half-inch above the ear canal. This will keep the dropper from becoming contaminated. Put the drops against the side of the ear canal. 6. Have your child stay lying down for 2 to 3 minutes. This gives time for the medicine to enter the ear canal. If your child doesn t have pain, gently massage the outer ear near the opening. 7. Wipe any extra medicine away from the outer ear with a clean cotton ball. Follow-up care Follow up with your child s healthcare provider as directed. Your child will need to have the ear rechecked to make sure the infection has gone away. Check with the healthcare provider to see when they want to see your child. Special note to parents If your child continues to get earaches, he or she may need ear tubes. The provider will put small tubes in your child s eardrum to help keep fluid from building up. This procedure is a simple and works well. When to seek medical advice Unless advised otherwise, call your child's healthcare provider if: Your child is 3 months old or younger and has a fever of 100.4 F (38 C) or higher. Your child may need to see a healthcare provider. Your child is of any age and has fevers higher than 104 F (40 C) that come back again and again. Call your child's healthcare provider for any of the following: New symptoms, especially swelling around the ear or weakness of face muscles Severe pain Infection seems to get worse, not better Neck pain Your child acts very sick or not himself or herself Fever or pain do not improve with antibiotics after 48 hours [id number] [employer]. [address] [place] [address]. All rights reserved. This information is not intended as a substitute for professional medical care. Always follow yourhealthcare professional's instructions. Additional Information VACCINATE! IT SAVES LIVES! Members of the community who have not yet received the COVID-19 vaccine and would like to receive it can visit one of [facility] vaccine clinics. There are many vaccine clinic locations within the [facility]. For locations and available times, please visit www.gettheshot.coronavirus.[place].gov/. It is important to note that some COVID mobile vaccine clinics are held outdoors and may be canceled in rainy or stormy conditions. To learn more about pediatric vaccinations (ages 5-11), we invite you to visit the [facility] webpage. [email or web address]/[email or web address] [email or web address] learn more about the COVID-19 vaccine, we invite you to visit the CDC website for a list of frequently asked questions. https://www.cdc.gov/coronavirus/2019-ncov/vaccines/faq.html [facility] Patient Portal Access Instructions: Stay connected with your healthcare team and access your personal medical information anytime with the [facility] Patient Portal. If you would like a full copy of your medical records please contact the [facility] Medical Records Department Thursday through Thursday between 8a.m. and 4:30p.m. Please follow the directions below to access the portal: 1.Access the email account you provided upon registration to the surgical specialty center at [facility].2.Look for an invitation email from [facility].3.Open the email and access the invitation link: Accept Invitation to [facility]4.Fill in the required boyd to create your account. Sign into www.[employer] with your username and password that you created in the above steps to stay up to date. You can then view a summary of results, a summary of your visits, and the ability to download your summaries to your computer or send the information securely to a physician. Remember that your healthcare information is confidential, so carefully consider who you will allow to register on the [facility] Patient Portal for access to your information. You can also access the [facility] Patient Portal on the [employer]. Simply click on Health Records under [employer] and then click on the [facility] logo. HOW TO SAFELY DISPOSE OF PRESCRIPTION MEDICATIONS Please use one of the following methods to safely dispose of your unused medications. 1.Use a drug disposal kit: the drug disposal pouch allows you to safely discard your old and unuseddrugs. Ask your nurse to give you one when you are discharged.2.Visit a local take-back location: Many local pharmacies and police departments have programs that collect old and unwanted prescriptiondrugs. Call your local pharmacy or go to http://[email or web address]/7W1Cg9r to find one close to you.3.Make use of household items: Use cat litter or old coffee grounds to dispose medications if other options arenot available. Mix your drugs with these household products, seal them in an airtight container andthrow it into the garbage. Call [facility]: [phone] to be sure your drugs can be disposed of in this way. Some medicines may require a different approach.4.Never flush your medications down the toilet. IF YOU HAVE BEEN PRESCRIBED AN OPIOIDS FOR PAIN If you have been prescribed an opioid (such as hydrocodone, oxycodone or morphine), it is critical to understand the possible side effects and risks of opioid pain medications. Even when taken as directed, opioids can have several side effects including: Tolerance, meaning you might need to take more of a medication for the same pain relief. Nausea, vomiting and/or constipation. Sleepiness, dizziness, dry mouth, confusion, depression or itching. Physical dependence, meaning you have withdrawal symptoms when a medication is stopped ? this can develop within a few days. KNOW YOUR RESPONSIBILITIES It is important to know exactly how much and how often to take the opioid pain medications you are prescribed. Never take opioids in higher amounts or more often than prescribed. Do not combine opioids with alcohol or other drugs that cause drowsiness, such as benzodiazepines, also known as benzos,including diazepam and alprazolam, muscle relaxants or sleep aids. Never sell or share prescriptionopioids. This is illegal. Store opioids in a secure place and out of reach of others (including children, family, friends and visitors). The last page(s) of this document has been signed and retained as a CHART COPY Signatures Patient Education Materials Acute Otitis Media with Infection (Child) Medication Leaflets My discharge plan and instructions have been reviewed and explained to me and I,ROSA CERVANTES understand my current condition and have read and understand these discharge instructions. I have received a written copy of the plan/instructions. If I have questions, I am aware that I should contact my doctor. 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 Reason for consultation: Follow up - uncontrolled type 2 diabetes antepartum. This Team Access Model visit is a virtual encounter. It required patient- provider interaction for the medical decision making as documented below. I have communicated my name and active licensure. The patient's identity and physical location wereverified at the time of this visit. Either the patient or their legal customer retention representative has been informed of the risks and benefits of -- and alternatives to -- treatment through a remote evaluation andconsents to proceed with the evaluation remotely. HISTORY OF PRESENT ILLNESS; Ms. Cervantes is a 27 year old presenting at 15+ weeks gestation who is here for follow up regarding uncontrolled type 2 diabetes antepartum. Her initial visit with me was 07/20. Hx of GDM in in 2019- required insulin during that , discontinued after delivery. BG started to increase after delivery and metformin were then restarted. Strong family hx of diabetes, including her mother. She has seen the ict educator earlier in this . At first visit with me - switched her basal insulin to NPH and increased Novolog. Her current regimen is as follows: NPH 10 units in AM and 30 units at bedtime Novolog to 10 units prior to each meal She has not sent me her BG data since her initial visit (despite numerous attempts of my office to contact her). Reviewed CGM data today - sensor average is markedly elevated at 199 mg/dL. This continuous glucose monitoring (sensor) data can be found in the procedure note CGM Report Interpretation: 1. Nocturnal glucose control: Uncontrolled glucose NOT previously detected: Yes If yes: Hyperglycemia detected Notes: generalized hyperglycemia. NPH adjusted accordingly. 2. Post prandial glucose excursions: Uncontrolled glucose NOT previously detected: Yes If yes: Hyperglycemia detected Notes: markedly elevated post meal BG- Novolog adjusted 3. Hypoglycemia incidence: Uncontrolled glucose NOT previously detected: No Notes: n/a 4. Other (e.g., exercise/activity): n/a Hypoglycemia frequency: n/a Hypoglycemia awareness: Yes Hyperglycemia Symptoms: denies blurry vision reports polyuria denies polydipsia reports nocturia denies rapid weight loss Regarding her thyroid - dx many years ago. Her current regimen is levothyroxine 200 mcg/day. Was missing doses previously- she is now taking as prescribed. Last visit with OB was 08/25- PAST MEDICAL HISTORY Diagnosis Date Abnormal Pap smear of cervix Anemia Asthma has not used an inhaler since age 18 Breast abscess Cellulitis 06/2022 breast Complication of anesthesia has issues with breathing after being woken-uses Albuterol Depression Diabetes mellitus (HCC) IDDM Genital herpes Gestational diabetes Hypothyroid PCOS (polycystic ovarian syndrome) depression PAST SURGICAL HISTORY Procedure Laterality Date SECTION HX CHOLECYSTECTOMY INCISION AND DRAINAGE 2020 breast abscess MYRINGOTOMY x4 TONSILLECTOMY AND ADENOIDECTOMY HX FAMILY HISTORY Problem Relation Age of Onset Diabetes Father Hypertension Father Asthma Mother Thyroid Mother other (PCOS) Mother Thyroid Sister Allergies Sister other (PCOS) Sister Cataract Maternal Grandmother Glaucoma Maternal Grandmother Heart Attack Maternal Grandmother Diabetes Maternal Grandfather Heart Maternal Grandfather Cancer Paternal Grandmother Heart Paternal Grandfather No Known Problems Daughter Social History Tobacco Use Smoking status: Former Types: Cigarettes Quit date: 10/22/2018 Years since quittin.8 Smokeless tobacco: Never Vaping Use Vaping Use: Never used Substance Use Topics Alcohol use: Not Currently Drug use: Not Currently Types: Marijuana Comment: no use since 2018 Current Outpatient Medications Medication Sig Dispense Refill albuterol HFA (PROVENTIL HFA, VENTOLIN HFA) 90 mcg/actuation inhaler Inhale 2 Puffs as instructed every 4 hours as needed for wheezing/shortness of breath. 1 Each 0 Blood-Glucose Sensor (FREESTYLE ELIANE 3 SENSOR) osman Use as instructed. 2 Each 3 levothyroxine (LEVOXYL) 200 mcg tablet Take 1 tablet by mouth once daily. 30 tablet 11 insulin NPH human (HUMULIN N NPH INSULIN KWIKPEN) 100 unit/mL (3 mL) injection pen 10 units in AM and 30 units at bedtime 5 Each 5 insulin lispro (HUMALOG KWIKPEN) 100 unit/mL 10 units prior each meal. 5 Each 11 Insulin [place], Disposable, (PEN NEEDLE) 32 gauge x Use to inject insulin up to 8 times per day. 100 Each 5 insulin glargine (LANTUS SOLOSTAR U-100 INSULIN) 100 unit/mL (3 mL) Inject 15 Units subcutaneously daily at bedtime. 5 mL 0 insulin aspart U-100 (NOVOLOG FLEXPEN U-100 INSULIN) 100 unit/mL (3 mL) Inject 3 Units subcutaneously three times a day before meals. 3 mL 0 Insulin [place], Disposable, (BD ULTRAFINE III MINI PEN) 31 gauge x 3/16 1 Each four times daily. USE WITH INSULIN PENS/ BYETTA PENS 4 TIMES DAILY 150 Each 3 promethazine (PHENERGAN) 25 mg tablet Take 0.5-1 tablets by mouth every 6 hours as needed. 30 tablet 1 blood sugar diagnostic test strip Use as directed to check glucose levels up to seven times daily. 200 Strip 8 Lancets lancets Use as directed to check glucose levels up to seven times daily. 200 Each 8 alcohol swabs (ALCOHOL PREP PADS) Use as directed to check glucose levels up to seven times daily. 200 Each 8 VIT 37-[id number]-DHA ORAL Take by mouth. famotidine (PEPCID) 20 mg tablet Take 20 mg by mouth twice daily. acyclovir (ZOVIRAX) 400 mg tablet Take 1 tablet by mouth every 12 hours. 60 tablet 0 metFORMIN (GLUCOPHAGE) 500 mg tablet Take 1 tablet by mouth twice daily with meals. 60 tablet 1 No current facility-administered medications for this visit. Allergies As of Date: 08/29/2023 Allergen Noted Reaction AMOXICILLIN 05/23/2019 Rash MOLD 05/23/2019 Rash RED DYE 05/23/2019 Rash WHEAT 07/18/2014 Rash Fully Assessed 08/25/2023 REVIEW OF SYSTEMS: Skin: no rashes, pruritis or dry skin Eyes: no blurred or double vision or eye pain Cardiac: denies chest pain, heart palpitations or orthopnea PHYSICAL EXAM: No vitals as this was a virtual visit. GENERAL: Alert, no distress, cooperative SKIN: Skin color, texture, turgor normal. No rashes or lesions. HEAD/SINUSES: No significant findings EYES: sclera non-icteric, EOMs intact. ABDOMEN: gravid at 15+ weeks EXTREMITIES: Normal exam of the extremities NEURO: AAO x 3, no focal deficits. The remainder of the physical exam is noncontributory. DATA: Component Latest Ref Rng & Units 05/25/2019 07/06/2023 Hemoglobin A1C 4.3 - 5.6 % 7.5 (H) 10.1 (H) Estimated Average Glucose mg/dL 169 243 Component Latest Ref Rng & Units 05/25/2019 07/06/2023 08/25/2023 TSH 0.270 - 4.200 mIU/L 2.450 27.700 (H) 3.300 IMPRESSION: Ms. Cervantes is a 27 year old presenting at 15+ weeks gestation who is here for follow up regarding uncontrolled type 2 diabetes antepartum and hypothyroidsim complicating . RECOMMENDATIONS: 1. I again counseled Rosa Cervantes regarding the importance of maintaining euglycemia during . She should continue to monitor carbohydrate intake, and walk after meals, if not contraindicated. 2. I recommend she check her blood glucose fasting, and 2 hour after each meal. Fasting blood glucose targets are between 60-90mg/dl, and 2 hour post prandial blood glucose concentration should be less than 120mg/dl. Regarding her blood glucose management, I recommend: 1) check your sugars fasting (60-90 mg/dL) and 2 hours post meal (less than 120 mg/dL)- use your sensor, but write these numbers down at these intervals and email them to me each thursday (important!!) 2) forward me your blood glucose data weekly ([email or web address])- send these numbers each thursday 3) increase insulin as follows: NPH 25 units in AM and 50 units at bedtime Novolog 20 units prior to each meal 4) continue levothyroxine 200 mcg/day as you are doing. Please get blood work repeated prior to f/uin six weeks 5) be sure you see your eye doctor as scheduled- may want to contact them and see if they want to see you prior to 10/12/23. 6) see me in six weeks- my office will reach out to schedule this- 3. Ophthalmology: no hx of DR- but not yet evaluated during the . She has upcoming appointment- I advised her to see if this can be moved up to sooner visit. She is at risk for de winnie diagnosis of DR given her elevated A1c early in the . She will return to clinic in 6 weeks- virtual visit ok I spent a total of 40 minutes on the date of the service which included preparing to see the patient, [id number] patient care, completing clinical documentation, obtaining and/or reviewing separately obtained history, performing a medically appropriate examination, counseling and educating the pat ient/family/caregiver, and ordering medications, tests, or procedures. Jabier Weems DO documented in this encounterMer[facility]11-25-2023 NoteHNO ID: [id number] Author: Dasha Pyle RN Service: ? Author Type: Registered Nurse Type: Procedures Filed: 08/31/2023 8:05 AM Note Text:[facility]11-21-2023 Miscellaneous Notes* Quick Notes - Temitope Roblero APRN.CNM - 08/25/2023 9:22 AM EST VIRAL-S: Rosa Cervantes is a 27 year old female who presents at 15w1d with VI:02/15/2024, by Ultrasound for a routine visit. Denies headache, visual changes, chest pain, shortness of breath, vaginal bleeding, leakage of fluid, or dysuria. Feeling well, no complaints. Taking Levothyroixine daily, no missed pills. O: See flow sheet Gen: No apparent distress Abd: Gravid, nontender ASSESSMENT/PLAN: 1. 15 weeks gestation of 2. Poorly controlled diabetes mellitus 3. with history of section, antepartum P: 1) PTL precautions reviewed and when to call 2) RTO in 4 week for regular YOSEF 3) Completed BV treatment 4) No NT completed 5) Anatomy US 6) Endo for BG control FBG and 1hr PP and to bring log to visit and weekly log to endocrinology andOB physician. NPH 10 units in AM and 30 units at HS. Lispro 10units prior to meal. Discussed importance of good glycemic control during the , risk to self and baby. 7) hypothyroidism on 07/20 Levothyroxine 200mcg/day TSH today and each trimester per Endo 8) MFM and US at 17 wk 09/08/23 scheduled 9) Discussed with patient importance of care and keeping visit. Denies any barriers to care or transportation issues. 10) To start ASA for prevention 11) Has eye exam scheduled and to have every 3 months 12) Reviewed with patient physician only patient and will need to see them for management. 13) Reviewed RLP and RLS in and normal discomforts, reassurance offered. 14) Asking for a letter for court that she is and high risk due to DM. Letter given to patient. Temitope Roblero APRN.CNM documented in this encounterMercy [facility]11-21-2023 Instructions* Patient Instructions* Delonte Anderson Cma - 08/25/2023 8:53 AM EST SEQUENTIAL SCREENINGS [facility] offers sequential screenings for women who are interested in screenings for chromosomal abnormalities and certain defects during a . The sequential screen combinesultrasound and blood tests to determine the risk of chromosomal abnormalities, including Down's Syndrome (Trisomy 21) and Trisomy 18, as well as open neural tube defects including spina bifida. Ultrasound examination is performed between 11 weeks and 13 weeks gestational age. Blood tests are drawn after the ultrasound and again later in the between 15 and 21 weeks gestational age. Please let your physician know if you are interested in this testing. It will require an appointment withour contract technician. This is not an ultrasound performed by a physician in our office during a routine visit. SIGNS AND SYMPTOMS OF LABOR 1. Contractions every 10 minutes or more often 2. Clear, pink, or brownish fluid (water) leaking from vagina 3. Feeling that baby is pushing down, pressure 4. Low, dull backache 5. Cramps that feel like a period 6. Cramps with or without diarrhea If you notice any of the above symptoms, contact our office at [phone] and ask to speak with anurse. After hours, you can call doctors registry at [phone] OR call [facility] at [phone] ask to have the doctor aeronautical engineer paged. If you consider this an emergency, dial 9-9-5 or go to your nearest emergency department. NEED HELP? Are you dealing with a violent or abusive relationship? Are you a victim of rape or sexual assult? Call [facility] ([place]) 24 hour Crisis Hotline: 103.460.4612 or 397-644-0838. MANUAL Your Guide to a Healthy manual is now on-line. Visit [email or web address] to download your free copy documented in this encounterMercy Health Tiffin Hospital11-16-2023 Miscellaneous Notes* Telephone Encounter - Nolvia Hay RN - 08/20/2023 3:29 PM EST Patient notified of below information. Patient's BS today was 180's fasting and 230's one hour after breakfast. Has not had lunch yet today. Does not keep a BS log. Encouraged to keep a log and contact Dr. Weems office to schedule an appointment. Nolvia Hay RN * Telephone Encounter - Derrick Garcia RN - 08/20/2023 3:20 PM EST Left message for patient to call office. DERRICK GARCIA RN * Telephone Encounter - Maddie Langston MD - 08/20/2023 3:01 PM EST Continue to follow with endo for diabetes management. Looks like they called her today to schedule appointment. What were her blood sugars today? Recommend sending in BG log. RLS can happen in . Although does not present with sharp pains. Can use warm baths, massages, regular exercise, and avoidance of caffeine for RLS. If she has redness, swelling, persistent leg pain to go to ER for rule our DVT. For pelvic pain recommend warm baths or showers and tylenol PRN. To be seen with severe or persistent pain, vb, lof. Can discuss letter at appointment. * Telephone Encounter - Nolvia Hay RN - 08/20/2023 12:05 PM EST 14w3d Patient asking for a letter stating that she is considered high risk. Patient has court on 09/02. It's a felony so there is a chance she may serve alf time. Advised that she can discuss this with JCat her appointment on Thursday. States that her blood sugar elevates under times of stress. While talking with the police patrol lieutenant yesterday it spiked up to 350. She has been experiencing bilateral sharp leg pain at night. Making it difficult for her to sleep at night. Taking Tylenol. Asking if restless leg syndrome is possible to have in and if provider has further recommendations. Will have occasional pelvic pain during the day. While on the phone with this nurse she was having left sided pelvic pain that radiates to her c/section scar. Lasts for a couple of minutes. Please advise. Nolvia Hay RN documented in this encounterMercy Health [facility]11-16-2023 Miscellaneous Notes* Telephone Encounter - Isatu Riggs - 08/20/2023 8:09 AM EST Left voicemail for patient that I could put her on the schedule for 8:20 am , asked patient to callback and confirm she could make the appointment. Patient had messaged that if she could not take the 8:20 am appointment that she could do sometime around 11:00 or 1:00, advised patient that the 8:20am slot is the only appointment available with Dr. Weems until the end of August. Advised patientto call [phone] ([facility]) line to call and schedule. documented in this encounterMercy Health Tiffin Hospital11-15-2023 Miscellaneous Notes* Telephone Encounter - Isatu Riggs - 08/19/2023 3:59 PM EST Left voicemail for patient to call [facility] line if she can accept appointment for 08/20/2023 @ 8:20 am,(virtual appointment) documented in this [facility]11-15-2023 Miscellaneous Notes* Telephone Encounter - Isatu Riggs - 08/19/2023 2:34 PM EST Left voicemail for patient to offer appointment with Dr. Weems on 08/20/2023 @ 8:20 am , left [facility] direct line for patient to call if she would like to accept that appointment. documented in this encounterMercy Health Tiffin [facility]11-09-2023 NoteGrant Hospital11-09-2023 History of Present illness Narrative* Brijesh Navarro APRN.HEREDITARY CANCER PROGRAM COORDINATOR - 08/13/2023 1:39 PM EST Subjective HPI HPI Rosa Cervantes is a 27 year old female who presents today for CC of cough. This started 1 week ago. Has tried otc medication for relief. Symptoms are worsened by nothing. Risk factors hx of asthma. 14 weeks . nonsmoker. .Patient presents with: Cough: 1 week PAST MEDICAL HISTORY Diagnosis Date Abnormal Pap smear of cervix Anemia Asthma has not used an inhaler since age 18 Breast abscess Cellulitis 06/2022 breast Complication of anesthesia has issues with breathing after being woken-uses Albuterol Depression Diabetes mellitus (HCC) IDDM Genital herpes Gestational diabetes Hypothyroid PCOS (polycystic ovarian syndrome) depression PAST SURGICAL HISTORY Procedure Laterality Date SECTION HX CHOLECYSTECTOMY INCISION AND DRAINAGE 2020 breast abscess MYRINGOTOMY x4 TONSILLECTOMY AND ADENOIDECTOMY HX ALLERGIES Amoxicillin, Mold, Red Dye, and Wheat MEDICATIONS Blood-Glucose Sensor (FREESTYLE ELIANE 3 SENSOR) osman Use as instructed. levothyroxine (LEVOXYL) 200 mcg tablet Take 1 tablet by mouth once daily. insulin NPH human (HUMULIN N NPH INSULIN KWIKPEN) 100 unit/mL (3 mL) injection pen 10 units in AM and 30 units at bedtime insulin lispro (HUMALOG KWIKPEN) 100 unit/mL 10 units prior each meal. Insulin [place], Disposable, (PEN NEEDLE) 32 gauge x 5/32 Use to inject insulin up to 8 times per day. Insulin [place], Disposable, (BD ULTRAFINE III MINI PEN) 31 gauge x 3/16 1 Each four times daily. USE WITH INSULIN PENS/ BYETTA PENS 4 TIMES DAILY promethazine (PHENERGAN) 25 mg tablet Take 0.5-1 tablets by mouth every 6 hours as needed. blood sugar diagnostic test strip Use as directed to check glucose levels up to seven times daily. Lancets lancets Use as directed to check glucose levels up to seven times daily. alcohol swabs (ALCOHOL PREP PADS) Use as directed to check glucose levels up to seven times daily. VIT [id number]-DHA ORAL Take by mouth. famotidine (PEPCID) 20 mg tablet Take 20 mg by mouth twice daily. acyclovir (ZOVIRAX) 400 mg tablet Take 1 tablet by mouth every 12 hours. metFORMIN (GLUCOPHAGE) 500 mg tablet Take 1 tablet by mouth twice daily with meals. albuterol HFA (PROVENTIL HFA, VENTOLIN HFA) 90 mcg/actuation inhaler Inhale 2 Puffs as instructed every 4 hours as needed for wheezing/shortness of breath. insulin glargine (LANTUS SOLOSTAR U-100 INSULIN) 100 unit/mL (3 mL) Inject 15 Units subcutaneously daily at bedtime. insulin aspart U-100 (NOVOLOG FLEXPEN U-100 INSULIN) 100 unit/mL (3 mL) Inject 3 Units subcutaneously three times a day before meals. FAMILY HISTORY Problem Relation Age of Onset Diabetes Father Hypertension Father Asthma Mother Thyroid Mother other (PCOS) Mother Thyroid Sister Allergies Sister other (PCOS) Sister Cataract Maternal Grandmother Glaucoma Maternal Grandmother Heart Attack Maternal Grandmother Diabetes Maternal Grandfather Heart Maternal Grandfather Cancer Paternal Grandmother Heart Paternal Grandfather No Known Problems Daughter Social History Tobacco Use Smoking status: Former Types: Cigarettes Quit date: 10/22/2018 Years since quittin.8 Smokeless tobacco: Never Vaping Use Vaping Use: Never used Substance Use Topics Alcohol use: Not Currently Drug use: Not Currently Types: Marijuana Comment: no use since 2018 Review of Systems Constitutional: Negative for fever. HENT: Positive for congestion. Negative for ear pain, nosebleeds and sore throat. Respiratory: Positive for cough. Negative for shortness of breath and wheezing. Cardiovascular: Negative for chest pain. Musculoskeletal: Negative for neck pain. Neurological: Positive for headaches. Negative for dizziness. Objective Blood pressure 120/76, pulse 101, temperature 36.4 C (97.6 F), resp. rate 16, weight 109.7 kg (241 lb 12.8 oz), last menstrual period 05/06/2023, SpO2 96 %. Physical Exam Constitutional: General: She is not in acute distress. Appearance: She is not toxic-appearing or diaphoretic. HENT: Head: Normocephalic and atraumatic. Cardiovascular: Rate and Rhythm: Normal rate and regular rhythm. Heart sounds: Normal heart sounds, S1 normal and S2 normal. Pulmonary: Effort: Pulmonary effort is normal. Breath sounds: Normal breath sounds. Comments: Harsh loose cough during visit. Lymphadenopathy: Cervical: No cervical adenopathy. Right cervical: No superficial cervical adenopathy. Left cervical: No superficial cervical adenopathy. Neurological: Mental Status: She is alert and oriented to person, place, and time. Gait: Gait is intact. ASSESSMENT/PLAN: 1. URI, acute - ICD9: 465.9, ICD10: J06.9 (primary diagnosis) - Discussed viral etiology and rationale for treatment. - Symptomatic treatment with prn analgesia - Supportive care with fluids and rest - Follow up in 3-5 days if symptoms persist or sooner if worsening of symptoms 2. Acute cough - ICD9: 786.2, ICD10: R05.1 - XR CHEST 2V FRONTAL/LAT IMPRESSION: No acute radiographic abnormality. Dictated by : MALACHI BYRD MD 3. History of asthma - ICD9: V12.69, ICD10: Z87.09 - ALBUTEROL SULFATE HFA 90 MCG/ACTUATION AEROSOL INHALER Brijesh Navarro APRN.HEREDITARY CANCER PROGRAM COORDINATOR documented in this encounterMercy Health [facility]iffin [facility]11-09-2023 History of Present illness Narrative* Kellie Maya RT(R) - 08/13/2023 12:40 PM EST Radiology Service Progress Note PATIENT NAME: Rosa Cervantes DATE OF SERVICE: August 13, 2023 TIME: 12:51 PM PATIENT IDENTITY VERIFICATION COMPLETED USING TWO (2) IDENTIFIERS: Name and Date of confirmedby patient verbally. FALL SCREENING: Has the patient had 2 falls in the last year or 1 fall with injury or currently using an Ambulatory Assistive Device (Walker, Cane, Wheelchair, Crutches, etc.)? No PATIENT GENDER DATA: Female. status: : Yes. Radiologist notified: Patient and provider agreeable to x-rays status: NO. PATIENT RELEVANT IMPLANT DATA REVIEWED: Yes RADIOLOGY DEPARTMENT: General X-ray: Exam(s) Completed: Chest X-Ray PERIPHERAL IV DATA: Not applicable SIGNED BY: RT Marya(R) August 13, 2023 12:51 PM documented in this encounterMercy Health [facility] Hospital11-09-2023 NoteGrant Hospital10-31-2023 Miscellaneous Notes* Quick Notes - Juan David De Leon MD - 08/04/2023 2:17 PM EDT RR- VB No. LOF No. CTXS No. Movement: absent. Other c/o: No. Medication list reviewed. Physical Exam See Flow Sheet Abd: soft, nontender, gravid Ext: edema: Trace A/P 12w1d Estimated Date of Delivery: 02/15/24 Labs: NIPT desired, d/w her use as screen. MFM consult done following w/ endocrine for DM had eye exam prot/creat ratio ordered Carrier screening ordered as well. bv- rx sent Juan David De Leon M.D. documented in this encounterMercy Health [facility] Hospital10-31-2023 Instructions* Patient Instructions* Sarah Morales Ma - 08/04/2023 1:37 PM EDT SEQUENTIAL SCREENINGS The [facility] offers sequential screenings for women who are interested in screenings for chromosomal abnormalities and certain defects during a . The sequential screen combinesultrasound and blood tests to determine the risk of chromosomal abnormalities, including Down's Syndrome (Trisomy 21) and Trisomy 18, as well as open neural tube defects including spina bifida. Ultrasound examination is performed between 11 weeks and 13 weeks gestational age. Blood tests are drawn after the ultrasound and again later in the between 15 and 21 weeks gestational age. Please let your physician know if you are interested in this testing. It will require an appointment withour contract technician. This is not an ultrasound performed by a physician in our office during a routine visit. SIGNS AND SYMPTOMS OF LABOR 1. Contractions every 10 minutes or more often 2. Clear, pink, or brownish fluid (water) leaking from vagina 3. Feeling that baby is pushing down, pressure 4. Low, dull backache 5. Cramps that feel like a period 6. Cramps with or without diarrhea If you notice any of the above symptoms, contact our office at [phone] and ask to speak with anurse. After hours, you can call doctors registry at [phone] OR call [facility] at [phone] ask to have the doctor aeronautical engineer paged. If you consider this an emergency, dial 9-1-9 or go to your nearest emergency department. NEED HELP? Are you dealing with a violent or abusive relationship? Are you a victim of rape or sexual assult? Call [facility] ([place]) 24 hour Crisis Hotline: 432.584.7948 or 563-932-7087. MANUAL Your Guide to a Healthy manual is now on-line. Visit [email or web address] to download your free copy documented in this encounterMercy Health Tiffin Hospital10-23-2023 Instructions* Patient Instructions* Lesa Bond, DWIGHT - 07/27/2023 9:56 AM EDT Start back with exercise, goal at least 30 min most days. If unable to walk outside try Youtube (Chary Kay or others ) Look for diabetic version of meal replacement drinks Aim for three regular meals, consider nutrition drink at lunch as well Aim for approx two carb choices per meal/30 grams 3 Consume whole grains (whole wheat, oatmeal, bran flakes, popcorn); choose high fiber cereal and low sugar; 4 Consume fresh or frozen fruits and vegetables. 5 Use lean meats (poultry, fish, lean beef or pork). 6 Use calorie-free or sugar-free beverages. 7 Use healthy fats: [place] oil, canola oil, walnuts, ground flaxseed or flaxseed oil, almonds, sunflower/pumpkin seeds, butter spray, margarine with no trans fatty acids, cooking spray. 8 Keep a food journal week to monitor food choices and diet plan adherence. 10. Weigh and measure your serving sizes until you are comfortable with visibly estimating accurateportion sizes. 11. Consider short walks after a meal to help keep blood sugars down 12 , if able check a two hour post prandial blood sugars. documented in this encounterMercy Health [facility]iffin Hospital10-23-2023 NoteGrant Hospital10-23-2023 History of Present illness Narrative* Lesa Bond RD - 07/27/2023 9:26 AM EDT Nutrition Therapy Initial Assessment Nutrition Diagnosis: Altered nutrition-related lab values, related to, endocrine dysfunctoin, as evidenced by uncontrolled type 2 diabetes now 11 weeks gestation . RECOMMENDED MALNUTRITION DIAGNOSIS: NO MALNUTRITION IDENTIFIED NUTRITION CARE PLAN Nutrition Intervention 07/27/2023: comprehensive nutrition education Start back with exercise, goal at least 30 min most days. If unable to walk outside try [employer] (Chary Kay or others ) Look for diabetic version of meal replacement drinks Aim for three regular meals, consider nutrition drink at lunch as well Aim for approx two carb choices per meal/30 grams 3 Consume whole grains (whole wheat, oatmeal, bran flakes, popcorn); choose high fiber cereal and low sugar; 4 Consume fresh or frozen fruits and vegetables. 5 Use lean meats (poultry, fish, lean beef or pork). 6 Use calorie-free or sugar-free beverages. 7 Use healthy fats: [place] oil, canola oil, walnuts, ground flaxseed or flaxseed oil, almonds, sunflower/pumpkin seeds, butter spray, margarine with no trans fatty acids, cooking spray. 8 Keep a food journal week to monitor food choices and diet plan adherence. 10. Weigh and measure your serving sizes until you are comfortable with visibly estimating accurateportion sizes. 11. Consider short walks after a meal to help keep blood sugars down 12 , if able check a two hour post prandial blood sugars. Nutrition Monitoring & Evaluation: blood sugars in target range Need for Follow up: 3-4 weeks Patient presents for initial MNT as relates to type 2 diabetes uncontrolled (HgA1c 10.1) and , now at 11 weeks gestation. Some morning sickness but controlled with medication. Net 6 lb gain from prepregnancy, weight of initial class 3 BMI. Is on insulin basil/bolus for control. Intake noted for skipped meals with typically having an Ensure for breakfast then next at meal. Overall high carbohydrate intake with limited produce and whole grains. States being a very picky eater. Beverages are appropriate choosing SF options. No regular exercise, was walking with better weather. Significant Other present and supportive, was able to answer questions about routine patient could not. Blood sugars above target. Patient's symptoms are: blood sugars above target. 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 Resting Metabolic Rate: 1795 Malnutrition Screening Significant unintentional weight loss? No Eating less than 75% of usual intake for more than 2 weeks? No Potential Signs of Inflammation: no identifiable sources Education Materials Provided: Healthy You - Planning Healthy Meals READINESS TO LEARN Cognitive ability: Alert and oriented Motivation to learn: Interested Family support: High - Very involved in pt care Instruction provided to: Patient and Significant Other Patient learns best by: Individual Instruction Factors affecting learning: None Physical limitations affecting learning: None Referred/Supervised by: Moises/Venancio MOREJON Billing Type: Initial Assess/15 min 3 units SIGNATURE: Lesa Bond RD PATIENT NAME: Rosa Cervantes DATE: July 27, 2023 TIME: 9:30 AM documented in this encounterMer[facility]10-16-2023 Miscellaneous Notes* Telephone Encounter - Marii Nolen RN - 07/20/2023 11:05 PM EDT Pt is 11 weeks and is c/o abd pain. Pt significant other stated she is bro risk patient. Jose was connected to the Answering Service at [phone] De Leon. documented in this encounterMercy Health Tiff[facility]10-16-2023 [facility]10-11-2023 Miscellaneous Notes * Telephone Encounter - Isatu Riggs - 07/15/2023 4:18 PM EDT Called and left voicemail for patient that she is scheduled with Dr. Weems on 07/17/2023 @ 8:20 am (virtual appointment) Advised patient to call if she is unable to take that appointment , gave patient GDM line. documented in this encounterMercy Health Tiffin [facility]10-10-2023 Miscellaneous Notes* Telephone Encounter - Naina Damian RN - 07/14/2023 2:29 PM EDT I called patient back for follow up from her visit earlier today. Patient was seen by Dr Chou and it was discovered during her visit that the patient has not been taking her blood sugars because she was unable to locate the glucometer she picked up in March. Insurance will not cover the glucometer that Dr De Leon recently ordered.Patient's mother agreed to buy patient a glucometer. When I called patient back she stated that her mother indeed purchased a new glucometer for her. She said she felt confident she would be able to use it .I did discuss the importance of when to take blood sugars and writing them down so they could be reviewed. Dr hCou did contact Marianne with [facility] and she did say that if patient is not consistent or does not take blood sugars with new glucometer, [facility] does cover Dexcom. FYI documented in this encounterMercy Health Tiffin Hospital10-10-2023 NoteGrant [facility]10-10-2023 History of Present illness Narrative* Dory Chou MD - 07/14/2023 8:15 AM EDT Images from the original note were not included. [facility] OUTPATIENT VISIT DATE July 14, 2023 OUTPATIENT VISIT TYPE MATERNAL- MEDICINE CONSULT REFERRING PROVIDER: Juan David De Leon MD Recommendations from today's consultation will be conveyed through the electronic medical record. History of Present Illness: 27 year old at 9w1d with Estimated Date of Delivery: 02/15/24 presenting for [facility] with [facility] in the setting of Type 2 Diabetes. She was diagnosed with Type 2 Diabetes during/after her first . She had original care in [place] during that , relocated to [place], was started on insulin during however was not taking it. Therefore she was admitted to at 35w6d due to glucose management (A1c was 7.5%). During the admission fetus developed non-reassuring heart rate tracing, decision made to induce labor. She ultimately underwent primary LTCS due to non-reassuring f etal heart rate tracing remote from delivery (36w1d, daughter, Tarah , weighed 3139g). She did not have any wound complications after CS. After delivery she reports being prescribed insulin by automatic quilling machine operator in [facility], however she had some trouble making appointments and has lost touch with the practice. She does not currently have automatic quilling machine operator. She had been prescribed Lantus and Humalog which was re-prescribed by Hotel Services Sales Representative team when they learned of . Hoping for [facility] endocrinology care now that she is . Her last HbA1c was 10.1%. She denies nephropathy, retinopathy, gastroparesis, neuropathy. Denies history hypertension (although believes she has been on med which sounds like PERYR inhibitor in past), no history p re-eclampsia. She reports that she obtained a glucometer in March however it is currently locked in a storage facility and the family is unsure how to obtain the items in storage. Therefore she has not taken her blood sugar during this . The insulin use has been intermittent, as she does not want to self-administer, so her mother (present today) will administer insulin if she's available, however she does work outside of the home so this has been intermittent. She did have a retinal exam 07/07/23 without diabetic changes per her report. She had previously been prescribed Metformin (also has PCOS), however does not like taking pills so had trouble with Metformin and did not end up taking it. She also has trouble taking her synthroid, does not feel any symptoms whether taking this medication or not taking it. Current insulin regimen: Insulin doses: Basal insulin: 15u Lantus nightly Prandial insulin: Novolog Continuous glucose sensor: per above Physical Activity Takes walks in the evening Diet: has given up soda, drinking flavored water now, thinks it's sugar free. Does enjoy pastries or lunch cakes, eating fruit such as bananas or grapes Her relevant histories have been updated and are reviewed below: Obstetric History: # 1 - Date: 05/29/19, Sex: Female, Weight: 6 lb 14.7 oz (3.139 kg), GA: 36w1d, Delivery: ,Low Transverse, Apgar1: 8, Apgar5: 8, Living: Living, Comments: Induced due to NRFHRP and poorly controlled DM2. AROM, Due to bradycardia proceeded to OR for urgent C Section,600cc # 2 - Date: None, Sex: None, Weight: None, GA: None, Delivery: None, Apgar1: None, Apgar5: None, Living: None, Comments: None Gynecologic History: History of genital HSV, history PCOS/irregular cycles, denies other relevant Property Assessment Monitor history Discussed post-delivery contraception she currently declines Past Medical History: PAST MEDICAL HISTORY Diagnosis Date Abnormal Pap smear of cervix Anemia Asthma has not used an inhaler since age 18 Breast abscess Cellulitis 06/2022 breast Complication of anesthesia has issues with breathing after being woken-uses Albuterol Depression Diabetes mellitus (HCC) IDDM Genital herpes Gestational diabetes Hypothyroid PCOS (polycystic ovarian syndrome) depression Past Surgical History: PAST SURGICAL HISTORY Procedure Laterality Date SECTION HX CHOLECYSTECTOMY INCISION AND DRAINAGE 2020 breast abscess MYRINGOTOMY x4 TONSILLECTOMY AND ADENOIDECTOMY HX Medications: Current Outpatient Medications on File Prior to Visit Medication Sig insulin glargine (LANTUS SOLOSTAR U-100 INSULIN) 100 unit/mL (3 mL) Inject 15 Units subcutaneously daily at bedtime. insulin aspart U-100 (NOVOLOG FLEXPEN U-100 INSULIN) 100 unit/mL (3 mL) Inject 3 Units subcutaneously three times a day before meals. Insulin [place], Disposable, (BD ULTRAFINE III MINI PEN) 31 gauge x 3/16 1 Each four times daily. USE WITH INSULIN PENS/ BYETTA PENS 4 TIMES DAILY promethazine (PHENERGAN) 25 mg tablet Take 0.5-1 tablets by mouth every 6 hours as needed. blood sugar diagnostic test strip Use as directed to check glucose levels up to seven times daily. Lancets lancets Use as directed to check glucose levels up to seven times daily. alcohol swabs (ALCOHOL PREP PADS) Use as directed to check glucose levels up to seven times daily. VIT 65-HXNI-AUCJB-DHA ORAL Take by mouth. levothyroxine (LEVOXYL) 25 mcg tablet Take 1 tablet by mouth once daily. Take on empty stomach. ForThyroid levothyroxine (LEVOXYL) 175 mcg tablet Take 1 tablet by mouth once daily. Take on empty stomach. For thyroid. famotidine (PEPCID) 20 mg tablet Take 20 mg by mouth twice daily. acyclovir (ZOVIRAX) 400 mg tablet Take 1 tablet by mouth every 12 hours. metFORMIN (GLUCOPHAGE) 500 mg tablet Take 1 tablet by mouth twice daily with meals. levothyroxine (SYNTHROID) 175 mcg tablet Take 1 tablet by mouth daily before breakfast. No current facility-administered medications on file prior to visit. Allergies: ALLERGIES Allergen Reactions Amoxicillin Rash Mold Rash Red Dye Rash Wheat Rash Social History: Social History Tobacco Use Smoking status: Former Types: Cigarettes Quit date: 10/22/2018 Years since quittin.7 Smokeless tobacco: Never Vaping Use Vaping Use: Never used Substance Use Topics Alcohol use: Not Currently Drug use: Not Currently Types: Marijuana Comment: no use since 2019 Food Insecurity: Not on file Family History: FAMILY HISTORY Problem Relation Age of Onset Diabetes Father Hypertension Father Asthma Mother Thyroid Mother other (PCOS) Mother Thyroid Sister Allergies Sister other (PCOS) Sister Cataract Maternal Grandmother Glaucoma Maternal Grandmother Heart Attack Maternal Grandmother Diabetes Maternal Grandfather Heart Maternal Grandfather Cancer Paternal Grandmother Heart Paternal Grandfather No Known Problems Daughter Review of Systems: Negative other than as noted above. Physical Exam: BP 112/64 Wt 240 lb (108.9 kg) LMP 05/06/2023 (Exact Date) BMI 42.51 kg/m Gen: Well-appearing, no acute distress CV/Resp: Non-labored breathing on room air Abd: Gravid, non-tender during bedside US Ext: Moving spontaneously, no significant edema b/l Bedside ultrasound: +FHTs Labs: HbA1c 10.1% Cr 0.32 mg/dL Urine P:Cr ordered needs to be collected TSH 27.7 EKG: ordered needs to be completed Assessment and Plan: 27 year old at 9w1d presenting for MFM consultation due to poorly controlled type2 diabetes in . Currently not taking blood sugars with intermittent insulin use. Elevated TSH with history hypothyroidism intermittent with synthroid. Based on review of the medical records and the patient's stated history, I discussed with Rosa that her current state of diabetes puts her at significant risk, including (not limited to): Preconceptual/first trimester A1c is closely related to miscarriage risk as well as congenital malformation risk, most specifically of the central nervous and cardiovascular systems. The higher the A1c, the greater the risk of defect, which can reach as high as 25% with an A1c of 10 mg/dL or greater. Risks of the diabetic were reviewed including growth disturbance (most commonly, large babies), increased risk of preeclampsia (especially with a diagnosis of preexisting hypertensionor nephropathy), possible delivery for macrosomia, in addition to the possibility of intrauterine demise (this risk is decreased significantly, but not completely, with optimal glucose control and compliance with testing). Risks to the patient's , including possible intensive care unit stay, hypoglycemia, jaundice, metabolic abnormalities and respiratory complications were reviewed, all less likely with optimal glucose control and delivery at term gestation. The need to perform fingerstick self monitoring of fasting, pre-meal and 1 hour post-meal glucoses were reviewed with the patient. Targets for blood glucose control including fasting 60-95, preprandial 60-100 and 2 hour postprandial <120 were emphasized. She was advised to send her glucose log weekly for review. We will call pharmacy about obtaining a glucometer, and if unable or having trouble we can consider obtaining CGM. Maintenance of euthyroid state also reviewed and importance of synthroid reviewed to optimize outcomes. She was counseled regarding the need for increased surveillance in a affected by diabetesincluding early dating of the and an early and detailed anatomic survey and echocardiogram at 20-22 weeks. We reviewed the need for serial growth scans beginning at 28 weeks to assessfetal growth as well as twice weekly testing beginning at 32 weeks. Delivery by 39 weeks is recommended, unless co-morbid complications arise. Mode of delivery will be based on standard obstetrical practices. She is leaning towards repeat delivery.If diabetes remains poorly controlled I would anticipate or early term delivery. The importance of establishing care with automatic quilling machine operator was reviewed. While we work on having measurable glucose log and/or CGM, will try and establish her with automatic quilling machine operator. If unable to make appointments/scan glucose log through My chart then we can see her weekly in office to review glucosesand adjust insulin. Anticipate she will require higher doses of insulin however there are no glucose s to review and she has only been using current insulin intermittently so cannot make assessment today. I implored her to have glucoses within a week to review due to importance of euglycemia to havea healthy . Also encouraged use of synthroid given elevated TSH. If she can take this consistently in the coming weeks then labs can be repeated to assess control/dosage, which normally requi res adjustment during . Recommendations: - Obtain glucometer (heading to pharmacy now) - If unable then will order CGM - Endocrinology MED[facility] - Diabetes education (scheduled) - Fingerstick glucose checks as follows: fasting, 2hr PP - Insulin dosing as follows: for now continue 15u nightly Lantus and Novolog 3/3/3 anticipate increases but need glucose data - Synthroid as previously prescribed - Return for NT ultrasound - Early anatomy ultrasound 16-17 weeks - Detailed anatomic survey at 20 weeks - echocardiogram 20-22 weeks - Initiate low-dose (81 mg) aspirin for preeclampsia prevention, if have not started - Serial ultrasounds for growth every 4 weeks beginning at 24 weeks - Twice weekly testing at 32 weeks until delivery - Send weekly glucose logs to office for review Thank you for allowing us to participate in the care of this patient. Please do not hesitate to contact our office with any questions or concerns. Consultation requested by Dr. De Leon for an opinion regarding Type 2 diabetes, hypothyroidism in . My final recommendations will be communicated back to the requesting physician by way of shared Medical record or letter to requesting physician via US mail. I spent 55 minutes in the visit, with more than 50% of the total [id number] time of the visit in counseling / coordination of care. SIGNATURE: Dory Chou MD PATIENT NAME: Rosa Cervantes DATE: July 14, 2023 TIME: 8:16 AM documented in this encounterMercy Health Tiffin Hospital10-09-2023 Miscellaneous Notes* Telephone Encounter - Lisa Alejandra LPN - 07/13/2023 2:12 PM EDT Pt returned call and given below information. Pt stated that she has been scheduled with Dr. Ann in [place] and she is not able to travel any further than that. Pt was given Tanya James's phone number [phone] pt was instructed to call their office and ask to be scheduled in their [place] office and to see if they can do virtual. Pt voiced understanding and was also instructedto call our office back with information if she was able to get an appointment. If so, pt will be canceled tomorrow with Dr. Chou and will see her in 2 weeks. Lisa Alejandra LPN * Telephone Encounter - Nolvia Hay RN - 07/13/2023 1:45 PM EDT 9w0d Patient is scheduled to see Dr. Chou tomorrow. See her note below. If patient is able to get in to the [facility] this week then she doesn't need seen tomorrow with TERRY. She will need seen in 2 weeks with [facility] for her NT US. Left message for patient to call office. Nolvia Hay RN The diabetes clinic is with Tanya James on Thursday in [place] they have openings if patient able- let me know if there's anyone I Can forward this to or if they need help putting her onthere is 8am and lots in afternoon documented in this encounterMercy Health Tiffin Hospital10-05-2023 Miscellaneous Notes* Addendum Note - Fredrick Duffy RN - 07/09/2023 8:39 AM EDTAddended by: FREDRICK DUFFY on: 07/09/2023 08:39 AM Modules accepted: Orders * Telephone Encounter - Fredrick Duffy RN - 07/09/2023 8:29 AM EDT I have been notified by the Josie GLOBAL CLINICAL LEADER that she is not able to see for high risk pregnancies. Patient will need to be rescheduled for either Dr. Weems at [facility] who specializes in High Risk or another of our Endocrinologists (the nearest are at [place].) Per [facility] scheduling, when I reached out to them, she needs a Consult to Endocrinology order filed before they can call her to reschedule. * Telephone Encounter - Derrick Garcia RN - 07/08/2023 3:12 PM EDT Patient notified that appointment 07/29 is soon enough and to send in blood sugar log next week. DERRICK GARCIA RN * Telephone Encounter - Mey Almanzar MD - 07/08/2023 2:55 PM EDT So long as she is restarted on meds then appt on 07/29 is ok. Would have her send in BS log next week. * Telephone Encounter - Derrick Garcia RN - 07/08/2023 2:12 PM EDT Patient notified. She is scheduled with endo 07/29, she reports this being the soonest appointment they could offer. Saw medical educator yesterday and he forwarded insulin refill request to provider on behalf of patient. She just re started the levothyroxine 200 mcg today after being off of it for 2 months. Is 07/29 soon enough for her to see endo? DERRICK GARCIA RN * Telephone Encounter - Derrick Garcia RN - 07/08/2023 2:12 PM EDT ----- Message from Mey Buck MD sent at 07/08/2023 1:31 PM EDT ----- Please call patient- who is her automatic quilling machine operator? Her TSH is 27 and her HGA1c is 10, putting her at high risk for complications with . Would recommend she have an appt with pcp or automatic quilling machine operator medardo. documented in this encounterMercy Health Tiffin Hospital10-04-2023 Note[facility]10-03-2023 Note[facility]10-03-2023 Miscellaneous Notes * Telephone Encounter - Olimpia Ibarra RN - 07/07/2023 9:35 AM EDT 1st risk assessment form submitted 07/06/23 Olimpia Ibarra RN documented in this encounterMercy Health Tiff[facility] Hospital10-02-2023 Note[facility]10-02-2023 Note[facility]09-28-2023 Miscellaneous Notes * Telephone Encounter - Lisa Alejandra LPN - 07/02/2023 1:57 PM EDT Noted. Lisa Alejandra LPN * Telephone Encounter - Juan David De Leon MD - 07/02/2023 12:24 PM EDT This patient gave consent to this Medical Advice Message and is aware that it may result in a bill to their insurance, as well as the possibility of receiving a bill for a copay and/or deductible. They are an established patient, but are not seeking information exclusively about a problem treated during an in person or video visit in the last seven days. I did not recommend an in person or video visit within seven days of my reply. See the [employer] message reply for my assessment and plan. I spent 5 min. reviewing chart, finding documented history of HSV and previous rx, reviewing meds and allergies, responding to patient and ordering medication. Juan David De Leon MD * Telephone Encounter - Lisa Alejandra LPN - 07/02/2023 12:04 PM EDT Please see pt's [employer] refill request below and advise. Lisa Alejandra LPN * Telephone Encounter - Juan David De Leon MD - 07/01/2023 3:16 PM EDT Recommend if pain acutely worsens to let us know or to ED. Otherwise keep appointment on Thursday. Thanks. Juan David De Leon MD * Telephone Encounter - Anuja Lozano RN - 07/01/2023 3:00 PM EDT Patient notified. She will try to set up [employer] and will call back to schedule endo appointment. She now is c/o RLQ pain for the past week. States it is mild/dull for the most part, but can get sharp when she lifts something or is laying down. No bleeding or cramping. She previously had hcg quants done two days in a row, but no u/s yet. Advised to call back if pain becomes more constant/worse or bleeding. NOB with RR 07/06/23. Can leave detailed voicemail on patient's mobile when calling back. hCG Quantitative, Blood Date Value 06/18/2023 3,222.0 mIU/mL 06/17/2023 2,706.0 mIU/mL Anuja Lozano RN * Telephone Encounter - Nolvia Hay RN - 07/01/2023 2:30 PM EDT Left message for patient to call office. See below. If patient would like to participate in [facility] appointments she will need to activate [employer]. Her chart shows that she declined it. Nolvia Hay RN * Telephone Encounter - Juan David De Leon MD - 07/01/2023 9:57 AM EDT This is a patient we should try to get into the MFM/endocrine High risk clinic for preexisting DM patients. [facility] appointments available for both of them. Juan David De Leon MD * Telephone Encounter - Naina Damian RN - 07/01/2023 9:26 AM EDT Is 8 weeks by dates. Prenew OB telephone visit today with a new OB appointment with Dr. De Leon on July 06. She has pre-existing diabetes. Currently taking NovoLog 3 units 3 times a day and Lantus 15 units at bedtime. Has not seen automatic quilling machine operator for her diabetes or her hypothyroidism for about a year. Was seeing Dr. Stewart but missed an appointment and was released from care there. She had poorly controlled diabetes with her last . She is not taking her blood sugars daily. Schedulers have asked her to start taking her blood sugars and bring them to each appointment. I have discussed with nurse practitioner in endocrinology here and they cannot take her care -Judy bhatt a MD take care of her. Dr Navarro, at [facility], would need referral faxed to her for review and then would determine if emergency to be worked into her schedule. fax is [phone] staff statedthat she normally works preg dm in to the schedule. Next visit for new diabetes patient is in [place] and patient has transportation issues to get there. Otherwise, first available new patient appointment in [place] is not available this year I believe patient may need diabetic nurse educator appointment and appointment with regional climate change analyst. Consumes 3-4 sugar containing sodas a day . I did discussrisks with her. Please advise if we need to do any labs or ultrasounds prior to her new OB appointment and if you would like to have a referral faxed to Dr. Navarro or diabetic nurse educator appts [facility] of Past illness Narrative* Problem Noted Date Diagnosed Date Resolved Date UTI (urinary tract infection ) in , antepartum 07/01/2023 07/06/2023 Overview: 07/01/2023atient was seen in urgent care for a yeast infection on June 14 following an antibiotic she was given at [facility] for for UTI May 28. Patient states symptoms have resolved. TKRN Diabetes 05/27/2019 07/06/2023 Encounter for supervision of high risk with insufficient care, antepartum 05/23/2019 07/12/2019 Overview: 05/23/2019Recently moved here from [place] May 07. She states that she saw the doctor in [place] 2-3 times total. Signed release of records form to get her records from [place]. Was planning on seeing OB in [place] but states they told her she was too high risk and needed to come here for care. Had one episode of threatened PTL 05/05. Was given fluids at hospital. Denies any medication given to stop labor.TKRN Social work met with patient and her family today to help get her in touch w/ local resources. 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 Needs growth US, NSTs, BS checks. Juan David De Leon MD 05/23/2019 Was placed on Insulin during the . Does not take blood sugars routinely because I don't have the right strips to my machine and I don't like taking them. She states the last time she took her blood sugars it was 170 and that was 2 hours after lunch. I discussed at length the dangers of uncontrolled blood sugars in . I gave her a blood sugar log and asked her to take her blood sugars every morning fasting, and 2 hours after breakfast, lunch and dinner.TKRN History of hypothyroidism 05/23/2019 History of depression 05/23/20192022 Overview: 07/01/2023s. Pt has a history of anxiety/epression diagnosed at age 13. She believes she did have depression.. She has been off medication since 2018. Believes she may have h a prescription available but not sure at what pharmacy. Discussed increased risks of depression during and and importance of reporting the development or worsening of symptoms should they occur. Pt states she had suicidal thoughts at age 14, but none since. Denies any psychiatric hospitalizations. I have advised her that she may want to establish care at the counseling center and this information is provided to her. Family history of congenital heart defect 05/23/2019 07/12/2019 Overview: 05/23/2019FOB was born premature and with a hole in heart. He had surgical correction on heart andand stomach but unsure why he had stomach surgery. TKRN documented as of this encounter (statuses as of 07/08/2023) [facility] History of Past illness Narrative* Problem Noted Date Diagnosed Date Resolved Date UTI (urinary tract infection ) in , antepartum 07/01/2023 07/06/2023 Overview: 07/01/2023atient was seen in urgent care for a yeast infection on June 14 following an antibiotic she was given at [facility] for for UTI May 28. Patient states symptoms have resolved. TKRN Diabetes 05/27/2019 07/06/2023 Encounter for supervision of high risk with insufficient care, antepartum 05/23/2019 07/12/2019 Overview: 05/23/2019Recently moved here from [place] May 07. She states that she saw the doctor in [place] 2-3 times total. Signed release of records form to get her records from [place]. Was planning on seeing OB in [place] but states they told her she was too high risk and needed to come here for care. Had one episode of threatened PTL 05/05. Was given fluids at hospital. Denies any medication given to stop labor.TKRN Social work met with patient and her family today to help get her in touch w/ local resources. 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 Needs growth US, NSTs, BS checks. Juan David De Leon MD 05/23/2019 Was placed on Insulin during the . Does not take blood sugars routinely because I don't have the right strips to my machine and I don't like taking them. She states the last time she took her blood sugars it was 170 and that was 2 hours after lunch. I discussed at length the dangers of uncontrolled blood sugars in . I gave her a blood sugar log and asked her to take her blood sugars every morning fasting, and 2 hours after breakfast, lunch and dinner.TKRN History of hypothyroidism 05/23/2019 History of depression 05/23/20192022 Overview: 07/01/2023s. Pt has a history of anxiety/epression diagnosed at age 13. She believes she did have depression.. She has been off medication since 2019. Believes she may have h a prescription available but not sure at what pharmacy. Discussed increased risks of depression during and and importance of reporting the development or worsening of symptoms should they occur. Pt states she had suicidal thoughts at age 14, but none since. Denies any psychiatric hospitalizations. I have advised her that she may want to establish care at the counseling center and this information is provided to her. Family history of congenital heart defect 05/23/2019 07/12/2019 Overview: 05/23/2019FOB was born premature and with a hole in heart. He had surgical correction on heart andand stomach but unsure why he had stomach surgery. TKRN documented as of this encounter (statuses as of 07/10/2023) [facility] History of Past illness Narrative* Problem Noted Date Diagnosed Date Resolved Date UTI (urinary tract infection ) in , antepartum 07/01/2023 07/06/2023 Overview: 3Patient was seen in urgent care for a yeast infection on June 14 following an antibiotic she was given at [facility] for for UTI May 28. Patient states symptoms have resolved. TKRN Diabetes 05/27/2019 07/06/2023 Encounter for supervision of high risk with insufficient care, antepartum 05/23/2019 07/12/2019 Overview: 05/23/2019Recently moved here from [place] May 07. She states that she saw the doctor in [place] 2-3 times total. Signed release of records form to get her records from [place]. Was planning on seeing OB in [place] but states they told her she was too high risk and needed to come here for care. Had one episode of threatened PTL 05/05. Was given fluids at hospital. Denies any medication given to stop labor.TKRN Social work met with patient and her family today to help get her in touch w/ local resources. 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 Needs growth US, NSTs, BS checks. Juan David De Leon MD 05/23/2019 Was placed on Insulin during the . Does not take blood sugars routinely because I don't have the right strips to my machine and I don't like taking them. She states the last time she took her blood sugars it was 170 and that was 2 hours after lunch. I discussed at length the dangers of uncontrolled blood sugars in . I gave her a blood sugar log and asked her to take her blood sugars every morning fasting, and 2 hours after breakfast, lunch and dinner.TKRN History of hypothyroidism 05/23/2019 History of depression 05/23/20192022 Overview: 07/01/2023s. Pt has a history of anxiety/epression diagnosed at age 13. She believes she did have depression.. She has been off medication since 2018. Believes she may have h a prescription available but not sure at what pharmacy. Discussed increased risks of depression during and and importance of reporting the development or worsening of symptoms should they occur. Pt states she had suicidal thoughts at age 14, but none since. Denies any psychiatric hospitalizations. I have advised her that she may want to establish care at the counseling center and this information is provided to her. Family history of congenital heart defect 05/23/2019 07/12/2019 Overview: 05/23/2019FOB was born premature and with a hole in heart. He had surgical correction on heart andand stomach but unsure why he had stomach surgery. TKRN documented as of this encounter (statuses as of 07/10/2023) [facility] History of Past illness Narrative* Problem Noted Date Diagnosed Date Resolved Date UTI (urinary tract infection ) in , antepartum 07/01/2023 07/06/2023 Overview: 3Patient was seen in urgent care for a yeast infection on June 14 following an antibiotic she was given at [facility] for for UTI May 28. Patient states symptoms have resolved. TKRN Diabetes 05/27/2019 07/06/2023 Encounter for supervision of high risk with insufficient care, antepartum 05/23/2019 07/12/2019 Overview: 05/23/2019Recently moved here from [place] May 07. She states that she saw the doctor in [place] 2-3 times total. Signed release of records form to get her records from [place]. Was planning on seeing OB in [place] but states they told her she was too high risk and needed to come here for care. Had one episode of threatened PTL 05/05. Was given fluids at hospital. Denies any medication given to stop labor.TKRN Social work met with patient and her family today to help get her in touch w/ local resources. 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 Needs growth US, NSTs, BS checks. Juan David De Leon MD 05/23/2019 Was placed on Insulin during the . Does not take blood sugars routinely because I don't have the right strips to my machine and I don't like taking them. She states the last time she took her blood sugars it was 170 and that was 2 hours after lunch. I discussed at length the dangers of uncontrolled blood sugars in . I gave her a blood sugar log and asked her to take her blood sugars every morning fasting, and 2 hours after breakfast, lunch and dinner.TKRN History of hypothyroidism 05/23/2019 History of depression 05/23/20192022 Overview: 07/01/2023s. Pt has a history of anxiety/epression diagnosed at age 13. She believes she did have depression.. She has been off medication since 2019. Believes she may have h a prescription available but not sure at what pharmacy. Discussed increased risks of depression during and and importance of reporting the development or worsening of symptoms should they occur. Pt states she had suicidal thoughts at age 14, but none since. Denies any psychiatric hospitalizations. I have advised her that she may want to establish care at the counseling center and this information is provided to her. Family history of congenital heart defect 05/23/2019 07/12/2019 Overview: 05/23/2019FOB was born premature and with a hole in heart. He had surgical correction on heart andand stomach but unsure why he had stomach surgery. TKRN documented as of this encounter (statuses as of 07/14/2023) [facility] History of Past illness Narrative* Problem Noted Date Diagnosed Date Resolved Date UTI (urinary tract infection ) in , antepartum 07/01/2023 07/06/2023 Overview: 3Patient was seen in urgent care for a yeast infection on June 14 following an antibiotic she was given at [facility] for for UTI May 28. Patient states symptoms have resolved. TKRN Diabetes 05/27/2019 07/06/2023 Encounter for supervision of high risk with insufficient care, antepartum 05/23/2019 07/12/2019 Overview: 05/23/2019Recently moved here from [place] May 07. She states that she saw the doctor in [place] 2-3 times total. Signed release of records form to get her records from [place]. Was planning on seeing OB in [place] but states they told her she was too high risk and needed to come here for care. Had one episode of threatened PTL 05/05. Was given fluids at hospital. Denies any medication given to stop labor.TKRN Social work met with patient and her family today to help get her in touch w/ local resources. 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 Needs growth US, NSTs, BS checks. Juan David De Leon MD 05/23/2019 Was placed on Insulin during the . Does not take blood sugars routinely because I don't have the right strips to my machine and I don't like taking them. She states the last time she took her blood sugars it was 170 and that was 2 hours after lunch. I discussed at length the dangers of uncontrolled blood sugars in . I gave her a blood sugar log and asked her to take her blood sugars every morning fasting, and 2 hours after breakfast, lunch and dinner.TKRN History of hypothyroidism 05/23/2019 History of depression 05/23/20192022 Overview: 07/01/2023s. Pt has a history of anxiety/epression diagnosed at age 13. She believes she did have depression.. She has been off medication since 2018. Believes she may have h a prescription available but not sure at what pharmacy. Discussed increased risks of depression during and and importance of reporting the development or worsening of symptoms should they occur. Pt states she had suicidal thoughts at age 14, but none since. Denies any psychiatric hospitalizations. I have advised her that she may want to establish care at the counseling center and this information is provided to her. Family history of congenital heart defect 05/23/2019 07/12/2019 Overview: 05/23/2019FOB was born premature and with a hole in heart. He had surgical correction on heart andand stomach but unsure why he had stomach surgery. TKRN documented as of this encounter (statuses as of 07/14/2023) [facility] History of Past illness Narrative* Problem Noted Date Diagnosed Date Resolved Date UTI (urinary tract infection ) in , antepartum 07/01/2023 07/06/2023 Overview: 3Patient was seen in urgent care for a yeast infection on June 14 following an antibiotic she was given at [facility] for for UTI May 28. Patient states symptoms have resolved. TKRN Diabetes 05/27/2019 07/06/2023 Encounter for supervision of high risk with insufficient care, antepartum 05/23/2019 07/12/2019 Overview: 05/23/2019Recently moved here from [place] May 07. She states that she saw the doctor in [place] 2-3 times total. Signed release of records form to get her records from [place]. Was planning on seeing OB in [place] but states they told her she was too high risk and needed to come here for care. Had one episode of threatened PTL 05/05. Was given fluids at hospital. Denies any medication given to stop labor.TKRN Social work met with patient and her family today to help get her in touch w/ local resources. 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 Needs growth US, NSTs, BS checks. Juan David De Leon MD 05/23/2019 Was placed on Insulin during the . Does not take blood sugars routinely because I don't have the right strips to my machine and I don't like taking them. She states the last time she took her blood sugars it was 170 and that was 2 hours after lunch. I discussed at length the dangers of uncontrolled blood sugars in . I gave her a blood sugar log and asked her to take her blood sugars every morning fasting, and 2 hours after breakfast, lunch and dinner.TKRN History of hypothyroidism 05/23/2019 History of depression 05/23/20192022 Overview: 07/01/2023s. Pt has a history of anxiety/epression diagnosed at age 13. She believes she did have depression.. She has been off medication since 2019. Believes she may have h a prescription available but not sure at what pharmacy. Discussed increased risks of depression during and and importance of reporting the development or worsening of symptoms should they occur. Pt states she had suicidal thoughts at age 14, but none since. Denies any psychiatric hospitalizations. I have advised her that she may want to establish care at the counseling center and this information is provided to her. Family history of congenital heart defect 05/23/2019 07/12/2019 Overview: 05/23/2019FOB was born premature and with a hole in heart. He had surgical correction on heart andand stomach but unsure why he had stomach surgery. TKRN documented as of this encounter (statuses as of 07/15/2023) [facility] History of Past illness Narrative* Problem Noted Date Diagnosed Date Resolved Date UTI (urinary tract infection ) in , antepartum 07/01/2023 07/06/2023 Overview: 3Patient was seen in urgent care for a yeast infection on June 14 following an antibiotic she was given at [facility] for for UTI May 28. Patient states symptoms have resolved. TKRN Diabetes 05/27/2019 07/06/2023 Encounter for supervision of high risk with insufficient care, antepartum 05/23/2019 07/12/2019 Overview: 05/23/2019Recently moved here from [place] May 07. She states that she saw the doctor in [place] 2-3 times total. Signed release of records form to get her records from [place]. Was planning on seeing OB in [place] but states they told her she was too high risk and needed to come here for care. Had one episode of threatened PTL 05/05. Was given fluids at hospital. Denies any medication given to stop labor.TKRN Social work met with patient and her family today to help get her in touch w/ local resources. 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 Needs growth US, NSTs, BS checks. Juan David De Leon MD 05/23/2019 Was placed on Insulin during the . Does not take blood sugars routinely because I don't have the right strips to my machine and I don't like taking them. She states the last time she took her blood sugars it was 170 and that was 2 hours after lunch. I discussed at length the dangers of uncontrolled blood sugars in . I gave her a blood sugar log and asked her to take her blood sugars every morning fasting, and 2 hours after breakfast, lunch and dinner.TKRN History of hypothyroidism 05/23/2019 History of depression 05/23/20192022 Overview: 07/01/2023s. Pt has a history of anxiety/epression diagnosed at age 13. She believes she did have depression.. She has been off medication since 2019. Believes she may have h a prescription available but not sure at what pharmacy. Discussed increased risks of depression during and and importance of reporting the development or worsening of symptoms should they occur. Pt states she had suicidal thoughts at age 14, but none since. Denies any psychiatric hospitalizations. I have advised her that she may want to establish care at the counseling center and this information is provided to her. Family history of congenital heart defect 05/23/2019 07/12/2019 Overview: 05/23/2019FOB was born premature and with a hole in heart. He had surgical correction on heart andand stomach but unsure why he had stomach surgery. TKRN documented as of this encounter (statuses as of 07/16/2023) [facility] History of Past illness Narrative* Problem Noted Date Diagnosed Date Resolved Date UTI (urinary tract infection ) in , antepartum 07/01/2023 07/06/2023 Overview: 3Patient was seen in urgent care for a yeast infection on June 14 following an antibiotic she was given at [facility] for for UTI May 28. Patient states symptoms have resolved. TKRN Diabetes 05/27/2019 07/06/2023 Encounter for supervision of high risk with insufficient care, antepartum 05/23/2019 07/12/2019 Overview: 05/23/2019Recently moved here from [place] May 07. She states that she saw the doctor in [place] 2-3 times total. Signed release of records form to get her records from [place]. Was planning on seeing OB in [place] but states they told her she was too high risk and needed to come here for care. Had one episode of threatened PTL 05/05. Was given fluids at hospital. Denies any medication given to stop labor.TKRN Social work met with patient and her family today to help get her in touch w/ local resources. 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 Needs growth US, NSTs, BS checks. Juan David De Leon MD 05/23/2019 Was placed on Insulin during the . Does not take blood sugars routinely because I don't have the right strips to my machine and I don't like taking them. She states the last time she took her blood sugars it was 170 and that was 2 hours after lunch. I discussed at length the dangers of uncontrolled blood sugars in . I gave her a blood sugar log and asked her to take her blood sugars every morning fasting, and 2 hours after breakfast, lunch and dinner.TKRN History of hypothyroidism 05/23/2019 History of depression 05/23/20192022 Overview: 07/01/2023s. Pt has a history of anxiety/epression diagnosed at age 13. She believes she did have depression.. She has been off medication since 2019. Believes she may have h a prescription available but not sure at what pharmacy. Discussed increased risks of depression during and and importance of reporting the development or worsening of symptoms should they occur. Pt states she had suicidal thoughts at age 14, but none since. Denies any psychiatric hospitalizations. I have advised her that she may want to establish care at the counseling center and this information is provided to her. Family history of congenital heart defect 05/23/2019 07/12/2019 Overview: 05/23/2019FOB was born premature and with a hole in heart. He had surgical correction on heart andand stomach but unsure why he had stomach surgery. TKRN documented as of this encounter (statuses as of 07/21/2023) [facility] History of Past illness Narrative* Problem Noted Date Diagnosed Date Resolved Date UTI (urinary tract infection ) in , antepartum 07/01/2023 07/06/2023 Overview: 3Patient was seen in urgent care for a yeast infection on June 14 following an antibiotic she was given at [facility] for for UTI May 28. Patient states symptoms have resolved. TKRN Diabetes 05/27/2019 07/06/2023 Encounter for supervision of high risk with insufficient care, antepartum 05/23/2019 07/12/2019 Overview: 05/23/2019Recently moved here from [place] May 07. She states that she saw the doctor in [place] 2-3 times total. Signed release of records form to get her records from [place]. Was planning on seeing OB in [place] but states they told her she was too high risk and needed to come here for care. Had one episode of threatened PTL 05/05. Was given fluids at hospital. Denies any medication given to stop labor.TKRN Social work met with patient and her family today to help get her in touch w/ local resources. 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 Needs growth US, NSTs, BS checks. Juan David De Leon MD 05/23/2019 Was placed on Insulin during the . Does not take blood sugars routinely because I don't have the right strips to my machine and I don't like taking them. She states the last time she took her blood sugars it was 170 and that was 2 hours after lunch. I discussed at length the dangers of uncontrolled blood sugars in . I gave her a blood sugar log and asked her to take her blood sugars every morning fasting, and 2 hours after breakfast, lunch and dinner.TKRN History of hypothyroidism 05/23/2019 History of depression 05/23/20192022 Overview: 07/01/2023s. Pt has a history of anxiety/epression diagnosed at age 13. She believes she did have depression.. She has been off medication since 2019. Believes she may have h a prescription available but not sure at what pharmacy. Discussed increased risks of depression during and and importance of reporting the development or worsening of symptoms should they occur. Pt states she had suicidal thoughts at age 14, but none since. Denies any psychiatric hospitalizations. I have advised her that she may want to establish care at the counseling center and this information is provided to her. Family history of congenital heart defect 05/23/2019 07/12/2019 Overview: 05/23/2019FOB was born premature and with a hole in heart. He had surgical correction on heart andand stomach but unsure why he had stomach surgery. TKRN documented as of this encounter (statuses as of 07/27/2023) [facility]09-27-2023 History of Past illness Narrative* Problem Noted Date Diagnosed Date Resolved Date UTI (urinary tract infection ) in , antepartum 07/01/2023 07/06/2023 Overview: 07/01/2023atient was seen in urgent care for a yeast infection on June 14 following an antibiotic she was given at [place] for for UTI May 28. Patient states symptoms have resolved. TKRN Diabetes 05/27/2019 07/06/2023 Encounter for supervision of high risk with insufficient care, antepartum 05/23/2019 07/12/2019 Overview: 05/23/2019Recently moved here from [place] May 07. She states that she saw the doctor in [place] 2-3 times total. Signed release of records form to get her records from [place]. Was planning on seeing OB in [place] but states they told her she was too high risk and needed to come here for care. Had one episode of threatened PTL 05/05. Was given fluids at hospital. Denies any medication given to stop labor.TKRN Social work met with patient and her family today to help get her in touch w/ local resources. 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 Needs growth US, NSTs, BS checks. Juan David De Leon MD 05/23/2019 Was placed on Insulin during the . Does not take blood sugars routinely because I don't have the right strips to my machine and I don't like taking them. She states the last time she took her blood sugars it was 170 and that was 2 hours after lunch. I discussed at length the dangers of uncontrolled blood sugars in . I gave her a blood sugar log and asked her to take her blood sugars every morning fasting, and 2 hours after breakfast, lunch and dinner.TKRN History of hypothyroidism 05/23/2019 History of depression 05/23/20192022 Overview: 07/01/2023s. Pt has a history of anxiety/epression diagnosed at age 13. She believes she did have depression.. She has been off medication since 2018. Believes she may have h a prescription available but not sure at what pharmacy. Discussed increased risks of depression during and and importance of reporting the development or worsening of symptoms should they occur. Pt states she had suicidal thoughts at age 14, but none since. Denies any psychiatric hospitalizations. I have advised her that she may want to establish care at the counseling center and this information is provided to her. Family history of congenital heart defect 05/23/2019 07/12/2019 Overview: 05/23/2019FOB was born premature and with a hole in heart. He had surgical correction on heart andand stomach but unsure why he had stomach surgery. TKRN documented as of this encounter (statuses as of 08/05/2023) [facility]09-27-2023 History of Past illness Narrative* Problem Noted Date Diagnosed Date Resolved Date UTI (urinary tract infection ) in , antepartum 07/01/2023 07/06/2023 Overview: 3Patient was seen in urgent care for a yeast infection on June 14 following an antibiotic she was given at [facility] for for UTI May 28. Patient states symptoms have resolved. TKRN Diabetes 05/27/2019 07/06/2023 Encounter for supervision of high risk with insufficient care, antepartum 05/23/2019 07/12/2019 Overview: 05/23/2019Recently moved here from [place] May 07. She states that she saw the doctor in [place] 2-3 times total. Signed release of records form to get her records from [place]. Was planning on seeing OB in [place] but states they told her she was too high risk and needed to come here for care. Had one episode of threatened PTL 05/05. Was given fluids at hospital. Denies any medication given to stop labor.TKRN Social work met with patient and her family today to help get her in touch w/ local resources. 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 Needs growth US, NSTs, BS checks. Juan David De Leon MD 05/23/2019 Was placed on Insulin during the . Does not take blood sugars routinely because I don't have the right strips to my machine and I don't like taking them. She states the last time she took her blood sugars it was 170 and that was 2 hours after lunch. I discussed at length the dangers of uncontrolled blood sugars in . I gave her a blood sugar log and asked her to take her blood sugars every morning fasting, and 2 hours after breakfast, lunch and dinner.TKRN History of hypothyroidism 05/23/2019 History of depression 05/23/20192022 Overview: 07/01/2023s. Pt has a history of anxiety/epression diagnosed at age 13. She believes she did have depression.. She has been off medication since 2018. Believes she may have h a prescription available but not sure at what pharmacy. Discussed increased risks of depression during and and importance of reporting the development or worsening of symptoms should they occur. Pt states she had suicidal thoughts at age 14, but none since. Denies any psychiatric hospitalizations. I have advised her that she may want to establish care at the counseling center and this information is provided to her. Family history of congenital heart defect 05/23/2019 07/12/2019 Overview: 05/23/2019FOB was born premature and with a hole in heart. He had surgical correction on heart andand stomach but unsure why he had stomach surgery. TKRN documented as of this encounter (statuses as of 08/14/2023) [facility]09-27-2023 History of Past illness Narrative* Problem Noted Date Diagnosed Date Resolved Date UTI (urinary tract infection ) in , antepartum 07/01/2023 07/06/2023 Overview: 3Patient was seen in urgent care for a yeast infection on June 14 following an antibiotic she was given at [facility] for for UTI May 28. Patient states symptoms have resolved. TKRN Diabetes 05/27/2019 07/06/2023 Encounter for supervision of high risk with insufficient care, antepartum 05/23/2019 07/12/2019 Overview: 05/23/2019Recently moved here from [place] May 07. She states that she saw the doctor in [place] 2-3 times total. Signed release of records form to get her records from [place]. Was planning on seeing OB in [place] but states they told her she was too high risk and needed to come here for care. Had one episode of threatened PTL 05/05. Was given fluids at hospital. Denies any medication given to stop labor.TKRN Social work met with patient and her family today to help get her in touch w/ local resources. 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 Needs growth US, NSTs, BS checks. Juan David De Leon MD 05/23/2019 Was placed on Insulin during the . Does not take blood sugars routinely because I don't have the right strips to my machine and I don't like taking them. She states the last time she took her blood sugars it was 170 and that was 2 hours after lunch. I discussed at length the dangers of uncontrolled blood sugars in . I gave her a blood sugar log and asked her to take her blood sugars every morning fasting, and 2 hours after breakfast, lunch and dinner.TKRN History of hypothyroidism 05/23/2019 History of depression 05/23/20192022 Overview: 07/01/2023s. Pt has a history of anxiety/epression diagnosed at age 13. She believes she did have depression.. She has been off medication since 2018. Believes she may have h a prescription available but not sure at what pharmacy. Discussed increased risks of depression during and and importance of reporting the development or worsening of symptoms should they occur. Pt states she had suicidal thoughts at age 14, but none since. Denies any psychiatric hospitalizations. I have advised her that she may want to establish care at the counseling center and this information is provided to her. Family history of congenital heart defect 05/23/2019 07/12/2019 Overview: 05/23/2019FOB was born premature and with a hole in heart. He had surgical correction on heart andand stomach but unsure why he had stomach surgery. TKRN documented as of this encounter (statuses as of 08/19/2023) [facility]09-27-2023 History of Past illness Narrative* Problem Noted Date Diagnosed Date Resolved Date UTI (urinary tract infection ) in , antepartum 07/01/2023 07/06/2023 Overview: 3Patient was seen in urgent care for a yeast infection on June 14 following an antibiotic she was given at [facility] for for UTI May 28. Patient states symptoms have resolved. TKRN Diabetes 05/27/2019 07/06/2023 Encounter for supervision of high risk with insufficient care, antepartum 05/23/2019 07/12/2019 Overview: 05/23/2019Recently moved here from [place] May 07. She states that she saw the doctor in [place] 2-3 times total. Signed release of records form to get her records from [place]. Was planning on seeing OB in [place] but states they told her she was too high risk and needed to come here for care. Had one episode of threatened PTL 05/05. Was given fluids at hospital. Denies any medication given to stop labor.TKRN Social work met with patient and her family today to help get her in touch w/ local resources. 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 Needs growth US, NSTs, BS checks. Juan David De Leon MD 05/23/2019 Was placed on Insulin during the . Does not take blood sugars routinely because I don't have the right strips to my machine and I don't like taking them. She states the last time she took her blood sugars it was 170 and that was 2 hours after lunch. I discussed at length the dangers of uncontrolled blood sugars in . I gave her a blood sugar log and asked her to take her blood sugars every morning fasting, and 2 hours after breakfast, lunch and dinner.TKRN History of hypothyroidism 05/23/2019 History of depression 05/23/20192022 Overview: 07/01/2023s. Pt has a history of anxiety/epression diagnosed at age 13. She believes she did have depression.. She has been off medication since 2019. Believes she may have h a prescription available but not sure at what pharmacy. Discussed increased risks of depression during and and importance of reporting the development or worsening of symptoms should they occur. Pt states she had suicidal thoughts at age 14, but none since. Denies any psychiatric hospitalizations. I have advised her that she may want to establish care at the counseling center and this information is provided to her. Family history of congenital heart defect 05/23/2019 07/12/2019 Overview: 05/23/2019FOB was born premature and with a hole in heart. He had surgical correction on heart andand stomach but unsure why he had stomach surgery. TKRN documented as of this encounter (statuses as of 08/20/2023) [facility]09-27-2023 History of Past illness Narrative* Problem Noted Date Diagnosed Date Resolved Date UTI (urinary tract infection ) in , antepartum 07/01/2023 07/06/2023 Overview: 3Patient was seen in urgent care for a yeast infection on June 14 following an antibiotic she was given at [facility] for for UTI May 28. Patient states symptoms have resolved. TKRN Diabetes 05/27/2019 07/06/2023 Encounter for supervision of high risk with insufficient care, antepartum 05/23/2019 07/12/2019 Overview: 05/23/2019Recently moved here from [place] May 07. She states that she saw the doctor in [place] 2-3 times total. Signed release of records form to get her records from [place]. Was planning on seeing OB in [place] but states they told her she was too high risk and needed to come here for care. Had one episode of threatened PTL 05/05. Was given fluids at hospital. Denies any medication given to stop labor.TKRN Social work met with patient and her family today to help get her in touch w/ local resources. 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 Needs growth US, NSTs, BS checks. Juan David De Leon MD 05/23/2019 Was placed on Insulin during the . Does not take blood sugars routinely because I don't have the right strips to my machine and I don't like taking them. She states the last time she took her blood sugars it was 170 and that was 2 hours after lunch. I discussed at length the dangers of uncontrolled blood sugars in . I gave her a blood sugar log and asked her to take her blood sugars every morning fasting, and 2 hours after breakfast, lunch and dinner.TKRN History of hypothyroidism 05/23/2019 History of depression 05/23/20192022 Overview: 07/01/2023s. Pt has a history of anxiety/epression diagnosed at age 13. She believes she did have depression.. She has been off medication since 2019. Believes she may have h a prescription available but not sure at what pharmacy. Discussed increased risks of depression during and and importance of reporting the development or worsening of symptoms should they occur. Pt states she had suicidal thoughts at age 14, but none since. Denies any psychiatric hospitalizations. I have advised her that she may want to establish care at the counseling center and this information is provided to her. Family history of congenital heart defect 05/23/2019 07/12/2019 Overview: 05/23/2019FOB was born premature and with a hole in heart. He had surgical correction on heart andand stomach but unsure why he had stomach surgery. TKRN documented as of this encounter (statuses as of 08/25/2023) [facility]09-27-2023 History of Past illness Narrative* Problem Noted Date Diagnosed Date Resolved Date UTI (urinary tract infection ) in , antepartum 07/01/2023 07/06/2023 Overview: 3Patient was seen in urgent care for a yeast infection on June 14 following an antibiotic she was given at [facility] for for UTI May 28. Patient states symptoms have resolved. TKRN Diabetes 05/27/2019 07/06/2023 Encounter for supervision of high risk with insufficient care, antepartum 05/23/2019 07/12/2019 Overview: 05/23/2019Recently moved here from [place] May 07. She states that she saw the doctor in [place] 2-3 times total. Signed release of records form to get her records from [place]. Was planning on seeing OB in [place] but states they told her she was too high risk and needed to come here for care. Had one episode of threatened PTL 05/05. Was given fluids at hospital. Denies any medication given to stop labor.TKRN Social work met with patient and her family today to help get her in touch w/ local resources. 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 Needs growth US, NSTs, BS checks. Juan David De Leon MD 05/23/2019 Was placed on Insulin during the . Does not take blood sugars routinely because I don't have the right strips to my machine and I don't like taking them. She states the last time she took her blood sugars it was 170 and that was 2 hours after lunch. I discussed at length the dangers of uncontrolled blood sugars in . I gave her a blood sugar log and asked her to take her blood sugars every morning fasting, and 2 hours after breakfast, lunch and dinner.TKRN History of hypothyroidism 05/23/2019 History of depression 05/23/20192022 Overview: 07/01/2023s. Pt has a history of anxiety/epression diagnosed at age 13. She believes she did have depression.. She has been off medication since 2018. Believes she may have h a prescription available but not sure at what pharmacy. Discussed increased risks of depression during and and importance of reporting the development or worsening of symptoms should they occur. Pt states she had suicidal thoughts at age 14, but none since. Denies any psychiatric hospitalizations. I have advised her that she may want to establish care at the counseling center and this information is provided to her. Family history of congenital heart defect 05/23/2019 07/12/2019 Overview: 05/23/2019FOB was born premature and with a hole in heart. He had surgical correction on heart andand stomach but unsure why he had stomach surgery. TKRN documented as of this encounter (statuses as of 08/29/2023) [facility]09-27-2023 History of Past illness Narrative* Problem Noted Date Diagnosed Date Resolved Date UTI (urinary tract infection ) in , antepartum 07/01/2023 07/06/2023 Overview: 3Patient was seen in urgent care for a yeast infection on June 14 following an antibiotic she was given at [facility] for for UTI May 28. Patient states symptoms have resolved. TKRN Diabetes 05/27/2019 07/06/2023 Encounter for supervision of high risk with insufficient care, antepartum 05/23/2019 07/12/2019 Overview: 05/23/2019Recently moved here from [place] May 07. She states that she saw the doctor in [place] 2-3 times total. Signed release of records form to get her records from [place]. Was planning on seeing OB in [place] but states they told her she was too high risk and needed to come here for care. Had one episode of threatened PTL 05/05. Was given fluids at hospital. Denies any medication given to stop labor.TKRN Social work met with patient and her family today to help get her in touch w/ local resources. 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 Needs growth US, NSTs, BS checks. Juan David De Leon MD 05/23/2019 Was placed on Insulin during the . Does not take blood sugars routinely because I don't have the right strips to my machine and I don't like taking them. She states the last time she took her blood sugars it was 170 and that was 2 hours after lunch. I discussed at length the dangers of uncontrolled blood sugars in . I gave her a blood sugar log and asked her to take her blood sugars every morning fasting, and 2 hours after breakfast, lunch and dinner.TKRN History of hypothyroidism 05/23/2019 History of depression 05/23/20192022 Overview: 07/01/2023s. Pt has a history of anxiety/epression diagnosed at age 13. She believes she did have depression.. She has been off medication since 2019. Believes she may have h a prescription available but not sure at what pharmacy. Discussed increased risks of depression during and and importance of reporting the development or worsening of symptoms should they occur. Pt states she had suicidal thoughts at age 14, but none since. Denies any psychiatric hospitalizations. I have advised her that she may want to establish care at the counseling center and this information is provided to her. Family history of congenital heart defect 05/23/2019 07/12/2019 Overview: 05/23/2019FOB was born premature and with a hole in heart. He had surgical correction on heart andand stomach but unsure why he had stomach surgery. TKRN documented as of this encounter (statuses as of 08/29/2023) [facility]09-27-2023 History of Past illness Narrative* Problem Noted Date Diagnosed Date Resolved Date UTI (urinary tract infection ) in , antepartum 07/01/2023 07/06/2023 Overview: 07/01/2023atient was seen in urgent care for a yeast infection on June 14 following an antibiotic she was given at [facility] for for UTI May 28. Patient states symptoms have resolved. TKRN Diabetes 05/27/2019 07/06/2023 Encounter for supervision of high risk with insufficient care, antepartum 05/23/2019 07/12/2019 Overview: 05/23/2019Recently moved here from [place] May 07. She states that she saw the doctor in [place] 2-3 times total. Signed release of records form to get her records from [place]. Was planning on seeing OB in [place] but states they told her she was too high risk and needed to come here for care. Had one episode of threatened PTL 05/05. Was given fluids at hospital. Denies any medication given to stop labor.TKRN Social work met with patient and her family today to help get her in touch w/ local resources. 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 Needs growth US, NSTs, BS checks. Juan David De Leon MD 05/23/2019 Was placed on Insulin during the . Does not take blood sugars routinely because I don't have the right strips to my machine and I don't like taking them. She states the last time she took her blood sugars it was 170 and that was 2 hours after lunch. I discussed at length the dangers of uncontrolled blood sugars in . I gave her a blood sugar log and asked her to take her blood sugars every morning fasting, and 2 hours after breakfast, lunch and dinner.TKRN History of hypothyroidism 05/23/2019 History of depression 05/23/20192022 Overview: 07/01/2023s. Pt has a history of anxiety/epression diagnosed at age 13. She believes she did have depression.. She has been off medication since 2018. Believes she may have h a prescription available but not sure at what pharmacy. Discussed increased risks of depression during and and importance of reporting the development or worsening of symptoms should they occur. Pt states she had suicidal thoughts at age 14, but none since. Denies any psychiatric hospitalizations. I have advised her that she may want to establish care at the counseling center and this information is provided to her. Family history of congenital heart defect 05/23/2019 07/12/2019 Overview: 05/23/2019FOB was born premature and with a hole in heart. He had surgical correction on heart andand stomach but unsure why he had stomach surgery. TKRN documented as of this encounter (statuses as of 09/06/2023) [facility]09-27-2023 History of Past illness Narrative* Problem Noted Date Diagnosed Date Resolved Date UTI (urinary tract infection ) in , antepartum 07/01/2023 07/06/2023 Overview: 3Patient was seen in urgent care for a yeast infection on June 14 following an antibiotic she was given at [facility] for for UTI May 28. Patient states symptoms have resolved. TKRN Diabetes 05/27/2019 07/06/2023 Encounter for supervision of high risk with insufficient care, antepartum 05/23/2019 07/12/2019 Overview: 05/23/2019Recently moved here from [place] May 07. She states that she saw the doctor in [place] 2-3 times total. Signed release of records form to get her records from [place]. Was planning on seeing OB in [place] but states they told her she was too high risk and needed to come here for care. Had one episode of threatened PTL 05/05. Was given fluids at hospital. Denies any medication given to stop labor.TKRN Social work met with patient and her family today to help get her in touch w/ local resources. 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 Needs growth US, NSTs, BS checks. Juan David De Leon MD 05/23/2019 Was placed on Insulin during the . Does not take blood sugars routinely because I don't have the right strips to my machine and I don't like taking them. She states the last time she took her blood sugars it was 170 and that was 2 hours after lunch. I discussed at length the dangers of uncontrolled blood sugars in . I gave her a blood sugar log and asked her to take her blood sugars every morning fasting, and 2 hours after breakfast, lunch and dinner.TKRN History of hypothyroidism 05/23/2019 History of depression 05/23/20192022 Overview: 07/01/2023s. Pt has a history of anxiety/epression diagnosed at age 13. She believes she did have depression.. She has been off medication since 2019. Believes she may have h a prescription available but not sure at what pharmacy. Discussed increased risks of depression during and and importance of reporting the development or worsening of symptoms should they occur. Pt states she had suicidal thoughts at age 14, but none since. Denies any psychiatric hospitalizations. I have advised her that she may want to establish care at the counseling center and this information is provided to her. Family history of congenital heart defect 05/23/2019 07/12/2019 Overview: 05/23/2019FOB was born premature and with a hole in heart. He had surgical correction on heart andand stomach but unsure why he had stomach surgery. TKRN documented as of this encounter (statuses as of 2023) [facility]09-27-2023 History of Past illness Narrative* Problem Noted Date Diagnosed Date Resolved Date UTI (urinary tract infection ) in , antepartum 07/01/2023 07/06/2023 Overview: 3Patient was seen in urgent care for a yeast infection on June 14 following an antibiotic she was given at [place] [facility] for for UTI May 28. Patient states symptoms have resolved. TKRN Diabetes 05/27/2019 07/06/2023 Encounter for supervision of high risk with insufficient care, antepartum 05/23/2019 07/12/2019 Overview: 05/23/2019Recently moved here from [place] May 07. She states that she saw the doctor in [place] 2-3 times total. Signed release of records form to get her records from [place]. Was planning on seeing OB in [place] but states they told her she was too high risk and needed to come here for care. Had one episode of threatened PTL 05/05. Was given fluids at hospital. Denies any medication given to stop labor.TKRN Social work met with patient and her family today to help get her in touch w/ local resources. 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 Needs growth US, NSTs, BS checks. Juan David De Leon MD 05/23/2019 Was placed on Insulin during the . Does not take blood sugars routinely because I don't have the right strips to my machine and I don't like taking them. She states the last time she took her blood sugars it was 170 and that was 2 hours after lunch. I discussed at length the dangers of uncontrolled blood sugars in . I gave her a blood sugar log and asked her to take her blood sugars every morning fasting, and 2 hours after breakfast, lunch and dinner.TKRN History of hypothyroidism 05/23/2019 History of depression 05/23/20192022 Overview: 07/01/2023s. Pt has a history of anxiety/epression diagnosed at age 13. She believes she did have depression.. She has been off medication since 2018. Believes she may have h a prescription available but not sure at what pharmacy. Discussed increased risks of depression during and and importance of reporting the development or worsening of symptoms should they occur. Pt states she had suicidal thoughts at age 14, but none since. Denies any psychiatric hospitalizations. I have advised her that she may want to establish care at the counseling center and this information is provided to her. Family history of congenital heart defect 05/23/2019 07/12/2019 Overview: 05/23/2019FOB was born premature and with a hole in heart. He had surgical correction on heart andand stomach but unsure why he had stomach surgery. TKRN documented as of this encounter (statuses as of 09/14/2023) [facility]09-27-2023 History of Past illness Narrative* Problem Noted Date Diagnosed Date Resolved Date UTI (urinary tract infection ) in , antepartum 07/01/2023 07/06/2023 Overview: 3Patient was seen in urgent care for a yeast infection on June 14 following an antibiotic she was given at [place] for for UTI May 28. Patient states symptoms have resolved. TKRN Diabetes 05/27/2019 07/06/2023 Encounter for supervision of high risk with insufficient care, antepartum 05/23/2019 07/12/2019 Overview: 05/23/2019Recently moved here from [place] May 07. She states that she saw the doctor in [place] 2-3 times total. Signed release of records form to get her records from [place]. Was planning on seeing OB in [place] but states they told her she was too high risk and needed to come here for care. Had one episode of threatened PTL 05/05. Was given fluids at hospital. Denies any medication given to stop labor.TKRN Social work met with patient and her family today to help get her in touch w/ local resources. 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 Needs growth US, NSTs, BS checks. Juan David De Leon MD 05/23/2019 Was placed on Insulin during the . Does not take blood sugars routinely because I don't have the right strips to my machine and I don't like taking them. She states the last time she took her blood sugars it was 170 and that was 2 hours after lunch. I discussed at length the dangers of uncontrolled blood sugars in . I gave her a blood sugar log and asked her to take her blood sugars every morning fasting, and 2 hours after breakfast, lunch and dinner.TKRN History of hypothyroidism 05/23/2019 History of depression 05/23/20192022 Overview: 07/01/2023s. Pt has a history of anxiety/epression diagnosed at age 13. She believes she did have depression.. She has been off medication since 2018. Believes she may have h a prescription available but not sure at what pharmacy. Discussed increased risks of depression during and and importance of reporting the development or worsening of symptoms should they occur. Pt states she had suicidal thoughts at age 14, but none since. Denies any psychiatric hospitalizations. I have advised her that she may want to establish care at the counseling center and this information is provided to her. Family history of congenital heart defect 05/23/2019 07/12/2019 Overview: 05/23/2019FOB was born premature and with a hole in heart. He had surgical correction on heart andand stomach but unsure why he had stomach surgery. TKRN documented as of this encounter (statuses as of 09/17/2023) [facility]09-27-2023 History of Past illness Narrative* Problem Noted Date Diagnosed Date Resolved Date UTI (urinary tract infection ) in , antepartum 07/01/2023 07/06/2023 Overview: 3Patient was seen in urgent care for a yeast infection on June 14 following an antibiotic she was given at [place] for for UTI May 28. Patient states symptoms have resolved. TKRN Diabetes 05/27/2019 07/06/2023 Encounter for supervision of high risk with insufficient care, antepartum 05/23/2019 07/12/2019 Overview: 05/23/2019Recently moved here from [place] May 07. She states that she saw the doctor in [place] 2-3 times total. Signed release of records form to get her records from [place]. Was planning on seeing OB in [place] but states they told her she was too high risk and needed to come here for care. Had one episode of threatened PTL 05/05. Was given fluids at hospital. Denies any medication given to stop labor.TKRN Social work met with patient and her family today to help get her in touch w/ local resources. Juan David De Leon MD History of hypothyroidism 05/23/2019 History of depression 05/23/20192022 Overview: 07/01/2023s. Pt has a history of anxiety/epression diagnosed at age 13. She believes she did have depression.. She has been off medication since 2019. Believes she may have h a prescription available but not sure at what pharmacy. Discussed increased risks of depression during and and importance of reporting the development or worsening of symptoms should they occur. Pt states she had suicidal thoughts at age 14, but none since. Denies any psychiatric hospitalizations. I have advised her that she may want to establish care at the counseling center and this information is provided to her. Family history of congenital heart defect 05/23/2019 07/12/2019 Overview: 05/23/2019FOB was born premature and with a hole in heart. He had surgical correction on heart andand stomach but unsure why he had stomach surgery. TKRN Pure hyperglyceridemia 11/03/201110/09 documented as of this encounter (statuses as of 11/09/2023) [facility]09-27-2023 History of Past illness Narrative* Problem Noted Date Diagnosed Date Resolved Date UTI (urinary tract infection ) in , antepartum 07/01/2023 07/06/2023 Overview: 3Patient was seen in urgent care for a yeast infection on June 14 following an antibiotic she was given at [facility] for for UTI May 28. Patient states symptoms have resolved. TKRN Diabetes 05/27/2019 07/06/2023 Encounter for supervision of high risk with insufficient care, antepartum 05/23/2019 07/12/2019 Overview: 05/23/2019Recently moved here from [place] May 07. She states that she saw the doctor in [place] 2-3 times total. Signed release of records form to get her records from [place]. Was planning on seeing OB in [place] but states they told her she was too high risk and needed to come here for care. Had one episode of threatened PTL 05/05. Was given fluids at hospital. Denies any medication given to stop labor.TKRN Social work met with patient and her family today to help get her in touch w/ local resources. Juan David De Leon MD History of hypothyroidism 05/23/2019 History of depression 05/23/20192022 Overview: 07/01/2023s. Pt has a history of anxiety/epression diagnosed at age 13. She believes she did have depression.. She has been off medication since 2019. Believes she may have h a prescription available but not sure at what pharmacy. Discussed increased risks of depression during and and importance of reporting the development or worsening of symptoms should they occur. Pt states she had suicidal thoughts at age 14, but none since. Denies any psychiatric hospitalizations. I have advised her that she may want to establish care at the counseling center and this information is provided to her. Family history of congenital heart defect 05/23/2019 07/12/2019 Overview: 05/23/2019FOB was born premature and with a hole in heart. He had surgical correction on heart andand stomach but unsure why he had stomach surgery. TKRN Pure hyperglyceridemia 11/03/201110/09 documented as of this encounter (statuses as of 11/18/2023) [facility]09-27-2023 History of Past illness Narrative* Problem Noted Date Diagnosed Date Resolved Date UTI (urinary tract infection ) in , antepartum 07/01/2023 07/06/2023 Overview: 3Patient was seen in urgent care for a yeast infection on June 14 following an antibiotic she was given at [facility] for for UTI May 28. Patient states symptoms have resolved. TKRN Diabetes 05/27/2019 07/06/2023 Encounter for supervision of high risk with insufficient care, antepartum 05/23/2019 07/12/2019 Overview: 05/23/2019Recently moved here from [place] May 07. She states that she saw the doctor in [place] 2-3 times total. Signed release of records form to get her records from [place]. Was planning on seeing OB in [place] but states they told her she was too high risk and needed to come here for care. Had one episode of threatened PTL 05/05. Was given fluids at hospital. Denies any medication given to stop labor.TKRN Social work met with patient and her family today to help get her in touch w/ local resources. Juan David De Leon MD History of hypothyroidism 05/23/2019 History of depression 05/23/20192022 Overview: 07/01/2023s. Pt has a history of anxiety/epression diagnosed at age 13. She believes she did have depression.. She has been off medication since 2018. Believes she may have h a prescription available but not sure at what pharmacy. Discussed increased risks of depression during and and importance of reporting the development or worsening of symptoms should they occur. Pt states she had suicidal thoughts at age 14, but none since. Denies any psychiatric hospitalizations. I have advised her that she may want to establish care at the counseling center and this information is provided to her. Family history of congenital heart defect 05/23/2019 07/12/2019 Overview: 05/23/2019FOB was born premature and with a hole in heart. He had surgical correction on heart andand stomach but unsure why he had stomach surgery. TKRN Pure hyperglyceridemia 11/03/201110/09 documented as of this encounter (statuses as of 11/20/2023) [facility]09-27-2023 History of Past illness Narrative* Problem Noted Date Diagnosed Date Resolved Date UTI (urinary tract infection ) in , antepartum 07/01/2023 07/06/2023 Overview: 07/01/2023atient was seen in urgent care for a yeast infection on June 14 following an antibiotic she was given at [place] for for UTI May 28. Patient states symptoms have resolved. TKRN Diabetes 05/27/2019 07/06/2023 Encounter for supervision of high risk with insufficient care, antepartum 05/23/2019 07/12/2019 Overview: 05/23/2019Recently moved here from [place] May 07. She states that she saw the doctor in [place] 2-3 times total. Signed release of records form to get her records from [place]. Was planning on seeing OB in [place] but states they told her she was too high risk and needed to come here for care. Had one episode of threatened PTL 05/05. Was given fluids at hospital. Denies any medication given to stop labor.TKRN Social work met with patient and her family today to help get her in touch w/ local resources. Juan David De Leon MD History of hypothyroidism 05/23/2019 History of depression 05/23/20192022 Overview: 07/01/2023s. Pt has a history of anxiety/epression diagnosed at age 13. She believes she did have depression.. She has been off medication since 2018. Believes she may have h a prescription available but not sure at what pharmacy. Discussed increased risks of depression during and and importance of reporting the development or worsening of symptoms should they occur. Pt states she had suicidal thoughts at age 14, but none since. Denies any psychiatric hospitalizations. I have advised her that she may want to establish care at the counseling center and this information is provided to her. Family history of congenital heart defect 05/23/2019 07/12/2019 Overview: 05/23/2019FOB was born premature and with a hole in heart. He had surgical correction on heart andand stomach but unsure why he had stomach surgery. TKRN Pure hyperglyceridemia 11/03/201110/09 documented as of this encounter (statuses as of 11/20/2023) [facility]09-27-2023 History of Past illness Narrative* Problem Noted Date Diagnosed Date Resolved Date UTI (urinary tract infection ) in , antepartum 07/01/2023 07/06/2023 Overview: 3Patient was seen in urgent care for a yeast infection on June 14 following an antibiotic she was given at [place] for for UTI May 28. Patient states symptoms have resolved. TKRN Diabetes 05/27/2019 07/06/2023 Encounter for supervision of high risk with insufficient care, antepartum 05/23/2019 07/12/2019 Overview: 05/23/2019Recently moved here from [place] May 07. She states that she saw the doctor in [place] 2-3 times total. Signed release of records form to get her records from [place]. Was planning on seeing OB in [place] but states they told her she was too high risk and needed to come here for care. Had one episode of threatened PTL 05/05. Was given fluids at hospital. Denies any medication given to stop labor.TKRN Social work met with patient and her family today to help get her in touch w/ local resources. Juan David De Leon MD History of hypothyroidism 05/23/2019 History of depression 05/23/20192022 Overview: 07/01/2023s. Pt has a history of anxiety/epression diagnosed at age 13. She believes she did have depression.. She has been off medication since 2019. Believes she may have h a prescription available but not sure at what pharmacy. Discussed increased risks of depression during and and importance of reporting the development or worsening of symptoms should they occur. Pt states she had suicidal thoughts at age 14, but none since. Denies any psychiatric hospitalizations. I have advised her that she may want to establish care at the counseling center and this information is provided to her. Family history of congenital heart defect 05/23/2019 07/12/2019 Overview: 05/23/2019FOB was born premature and with a hole in heart. He had surgical correction on heart andand stomach but unsure why he had stomach surgery. TKRN Pure hyperglyceridemia 11/03/201110/09 documented as of this encounter (statuses as of 11/20/2023) [facility]09-27-2023 History of Past illness Narrative* Problem Noted Date Diagnosed Date Resolved Date UTI (urinary tract infection ) in , antepartum 07/01/2023 07/06/2023 Overview: 3Patient was seen in urgent care for a yeast infection on June 14 following an antibiotic she was given at [place] for for UTI May 28. Patient states symptoms have resolved. TKRN Diabetes 05/27/2019 07/06/2023 Encounter for supervision of high risk with insufficient care, antepartum 05/23/2019 07/12/2019 Overview: 05/23/2019Recently moved here from [place] May 07. She states that she saw the doctor in [place] 2-3 times total. Signed release of records form to get her records from [place]. Was planning on seeing OB in [place] but states they told her she was too high risk and needed to come here for care. Had one episode of threatened PTL 05/05. Was given fluids at hospital. Denies any medication given to stop labor.TKRN Social work met with patient and her family today to help get her in touch w/ local resources. Juan David De Leon MD History of hypothyroidism 05/23/2019 History of depression 05/23/20192022 Overview: 07/01/2023s. Pt has a history of anxiety/epression diagnosed at age 13. She believes she did have depression.. She has been off medication since 2018. Believes she may have h a prescription available but not sure at what pharmacy. Discussed increased risks of depression during and and importance of reporting the development or worsening of symptoms should they occur. Pt states she had suicidal thoughts at age 14, but none since. Denies any psychiatric hospitalizations. I have advised her that she may want to establish care at the counseling center and this information is provided to her. Family history of congenital heart defect 05/23/2019 07/12/2019 Overview: 05/23/2019FOB was born premature and with a hole in heart. He had surgical correction on heart andand stomach but unsure why he had stomach surgery. TKRN Pure hyperglyceridemia 11/03/201110/09 documented as of this encounter (statuses as of 11/23/2023) [facility]09-27-2023 History of Past illness Narrative* Problem Noted Date Diagnosed Date Resolved Date UTI (urinary tract infection ) in , antepartum 07/01/2023 07/06/2023 Overview: 3Patient was seen in urgent care for a yeast infection on June 14 following an antibiotic she was given at [place] for for UTI May 28. Patient states symptoms have resolved. TKRN Diabetes 05/27/2019 07/06/2023 Encounter for supervision of high risk with insufficient care, antepartum 05/23/2019 07/12/2019 Overview: 05/23/2019Recently moved here from [place] May 07. She states that she saw the doctor in [place] 2-3 times total. Signed release of records form to get her records from [place]. Was planning on seeing OB in [place] but states they told her she was too high risk and needed to come here for care. Had one episode of threatened PTL 05/05. Was given fluids at hospital. Denies any medication given to stop labor.TKRN Social work met with patient and her family today to help get her in touch w/ local resources. Juan David De Leon MD History of hypothyroidism 05/23/2019 History of depression 05/23/20192022 Overview: 07/01/2023s. Pt has a history of anxiety/epression diagnosed at age 13. She believes she did have depression.. She has been off medication since 2018. Believes she may have h a prescription available but not sure at what pharmacy. Discussed increased risks of depression during and and importance of reporting the development or worsening of symptoms should they occur. Pt states she had suicidal thoughts at age 14, but none since. Denies any psychiatric hospitalizations. I have advised her that she may want to establish care at the counseling center and this information is provided to her. Family history of congenital heart defect 05/23/2019 07/12/2019 Overview: 05/23/2019FOB was born premature and with a hole in heart. He had surgical correction on heart andand stomach but unsure why he had stomach surgery. TKRN Pure hyperglyceridemia 11/03/201110/09 documented as of this encounter (statuses as of 12/01/2023) [facility]09-[facility]-20[facility] History of Past illness Narrative* Problem Noted Date Diagnosed Date Resolved Date UTI (urinary tract infection ) in , antepartum 07/01/2023 07/06/2023 Overview: 07/01/2023atient was seen in urgent care for a yeast infection on June 14 following an antibiotic she was given at [place] for for UTI May 28. Patient states symptoms have resolved. TKRN Diabetes 05/27/2019 07/06/2023 Encounter for supervision of high risk with insufficient care, antepartum 05/23/2019 07/12/2019 Overview: 05/23/2019Recently moved here from [place] May 07. She states that she saw the doctor in [place] 2-3 times total. Signed release of records form to get her records from [place]. Was planning on seeing OB in [place] but states they told her she was too high risk and needed to come here for care. Had one episode of threatened PTL 05/05. Was given fluids at hospital. Denies any medication given to stop labor.TKRN Social work met with patient and her family today to help get her in touch w/ local resources. Juan David De Leon MD History of hypothyroidism 05/23/2019 History of depression 05/23/20192022 Overview: 07/01/2023s. Pt has a history of anxiety/epression diagnosed at age 13. She believes she did have depression.. She has been off medication since 2019. Believes she may have h a prescription available but not sure at what pharmacy. Discussed increased risks of depression during and and importance of reporting the development or worsening of symptoms should they occur. Pt states she had suicidal thoughts at age 14, but none since. Denies any psychiatric hospitalizations. I have advised her that she may want to establish care at the counseling center and this information is provided to her. Family history of congenital heart defect 05/23/2019 07/12/2019 Overview: 05/23/2019FOB was born premature and with a hole in heart. He had surgical correction on heart andand stomach but unsure why he had stomach surgery. TKRN Pure hyperglyceridemia 11/03/201110/09 documented as of this encounter (statuses as of 12/03/2023) [facility]09-[facility]-20[facility] History of Past illness Narrative* Problem Noted Date Diagnosed Date Resolved Date UTI (urinary tract infection ) in , antepartum 07/01/2023 07/06/2023 Overview: 3Patient was seen in urgent care for a yeast infection on June 14 following an antibiotic she was given at [place] for for UTI May 28. Patient states symptoms have resolved. TKRN Diabetes 05/27/2019 07/06/2023 Encounter for supervision of high risk with insufficient care, antepartum 05/23/2019 07/12/2019 Overview: 05/23/2019Recently moved here from [place] May 07. She states that she saw the doctor in [place] 2-3 times total. Signed release of records form to get her records from [place]. Was planning on seeing OB in [place] but states they told her she was too high risk and needed to come here for care. Had one episode of threatened PTL 05/05. Was given fluids at hospital. Denies any medication given to stop labor.TKRN Social work met with patient and her family today to help get her in touch w/ local resources. Juan David De Leon MD History of hypothyroidism 05/23/2019 History of depression 05/23/20192022 Overview: 07/01/2023s. Pt has a history of anxiety/epression diagnosed at age 13. She believes she did have depression.. She has been off medication since 2018. Believes she may have h a prescription available but not sure at what pharmacy. Discussed increased risks of depression during and and importance of reporting the development or worsening of symptoms should they occur. Pt states she had suicidal thoughts at age 14, but none since. Denies any psychiatric hospitalizations. I have advised her that she may want to establish care at the counseling center and this information is provided to her. Family history of congenital heart defect 05/23/2019 07/12/2019 Overview: 05/23/2019FOB was born premature and with a hole in heart. He had surgical correction on heart andand stomach but unsure why he had stomach surgery. GONZÁLEZRN Pure hyperglyceridemia 11/03/201110/09 documented as of this encounter (statuses as of 12/03/2023) [facility]09-27-2023 History of Past illness Narrative* Problem Noted Date Diagnosed Date Resolved Date UTI (urinary tract infection ) in , antepartum 07/01/2023 07/06/2023 Overview: 3Patient was seen in urgent care for a yeast infection on June 14 following an antibiotic she was given at [place] [facility] for for UTI May 28. Patient states symptoms have resolved. GONZÁLEZRLeeann Diabetes 05/27/2019 07/06/2023 Encounter for supervision of high risk with insufficient care, antepartum 05/23/2019 07/12/2019 Overview: 05/23/2019Recently moved here from [place] May 07. She states that she saw the doctor in [place] 2-3 times total. Signed release of records form to get her records from [place]. Was planning on seeing OB in [place] but states they told her she was too high risk and needed to come here for care. Had one episode of threatened PTL 05/05. Was given fluids at hospital. Denies any medication given to stop labor.TKRN Social work met with patient and her family today to help get her in touch w/ local resources. Juan David De Leon MD History of hypothyroidism 05/23/2019 History of depression 05/23/20192022 Overview: 07/01/2023s. Pt has a history of anxiety/epression diagnosed at age 13. She believes she did have depression.. She has been off medication since 2018. Believes she may have h a prescription available but not sure at what pharmacy. Discussed increased risks of depression during and and importance of reporting the development or worsening of symptoms should they occur. Pt states she had suicidal thoughts at age 14, but none since. Denies any psychiatric hospitalizations. I have advised her that she may want to establish care at the counseling center and this information is provided to her. Family history of congenital heart defect 05/23/2019 07/12/2019 Overview: 05/23/2019FOB was born premature and with a hole in heart. He had surgical correction on heart andand stomach but unsure why he had stomach surgery. TKRN Pure hyperglyceridemia 11/03/201110/09 documented as of this encounter (statuses as of 12/04/2023) [facility]09-27-2023 History of Past illness Narrative* Problem Noted Date Diagnosed Date Resolved Date UTI (urinary tract infection ) in , antepartum 07/01/2023 07/06/2023 Overview: 07/01/2023atient was seen in urgent care for a yeast infection on June 14 following an antibiotic she was given at [place] for for UTI May 28. Patient states symptoms have resolved. TKRN Diabetes 05/27/2019 07/06/2023 Encounter for supervision of high risk with insufficient care, antepartum 05/23/2019 07/12/2019 Overview: 05/23/2019Recently moved here from [place] May 07. She states that she saw the doctor in [place] 2-3 times total. Signed release of records form to get her records from [place]. Was planning on seeing OB in [place] but states they told her she was too high risk and needed to come here for care. Had one episode of threatened PTL 05/05. Was given fluids at hospital. Denies any medication given to stop labor.TKRN Social work met with patient and her family today to help get her in touch w/ local resources. Juan David De Leon MD History of hypothyroidism 05/23/2019 History of depression 05/23/20192022 Overview: 07/01/2023s. Pt has a history of anxiety/epression diagnosed at age 13. She believes she did have depression.. She has been off medication since 2018. Believes she may have h a prescription available but not sure at what pharmacy. Discussed increased risks of depression during and and importance of reporting the development or worsening of symptoms should they occur. Pt states she had suicidal thoughts at age 14, but none since. Denies any psychiatric hospitalizations. I have advised her that she may want to establish care at the counseling center and this information is provided to her. Family history of congenital heart defect 05/23/2019 07/12/2019 Overview: 05/23/2019FOB was born premature and with a hole in heart. He had surgical correction on heart andand stomach but unsure why he had stomach surgery. TKRN Pure hyperglyceridemia 11/03/201110/09 documented as of this encounter (statuses as of 12/04/2023) [facility]09-27-2023 History of Past illness Narrative* Problem Noted Date Diagnosed Date Resolved Date UTI (urinary tract infection ) in , antepartum 07/01/2023 07/06/2023 Overview: 3Patient was seen in urgent care for a yeast infection on June 14 following an antibiotic she was given at [place] for for UTI May 28. Patient states symptoms have resolved. TKRN Diabetes 05/27/2019 07/06/2023 Encounter for supervision of high risk with insufficient care, antepartum 05/23/2019 07/12/2019 Overview: 05/23/2019Recently moved here from [place] May 07. She states that she saw the doctor in [place] 2-3 times total. Signed release of records form to get her records from [place]. Was planning on seeing OB in [place] but states they told her she was too high risk and needed to come here for care. Had one episode of threatened PTL 05/05. Was given fluids at hospital. Denies any medication given to stop labor.TKRN Social work met with patient and her family today to help get her in touch w/ local resources. Juan David De Leon MD History of hypothyroidism 05/23/2019 History of depression 05/23/20192022 Overview: 07/01/2023s. Pt has a history of anxiety/epression diagnosed at age 13. She believes she did have depression.. She has been off medication since 2018. Believes she may have h a prescription available but not sure at what pharmacy. Discussed increased risks of depression during and and importance of reporting the development or worsening of symptoms should they occur. Pt states she had suicidal thoughts at age 14, but none since. Denies any psychiatric hospitalizations. I have advised her that she may want to establish care at the counseling center and this information is provided to her. Family history of congenital heart defect 05/23/2019 07/12/2019 Overview: 05/23/2019FOB was born premature and with a hole in heart. He had surgical correction on heart andand stomach but unsure why he had stomach surgery. TKRN Pure hyperglyceridemia 11/03/201110/09 documented as of this encounter (statuses as of 12/08/2023) [facility]09-27-20[facility] History of Past illness Narrative* Problem Noted Date Diagnosed Date Resolved Date UTI (urinary tract infection ) in , antepartum 07/01/2023 07/06/2023 Overview: 3Patient was seen in urgent care for a yeast infection on June 14 following an antibiotic she was given at [place] for for UTI May 28. Patient states symptoms have resolved. TKRN Diabetes 05/27/2019 07/06/2023 Encounter for supervision of high risk with insufficient care, antepartum 05/23/2019 07/12/2019 Overview: 05/23/2019Recently moved here from [place] May 07. She states that she saw the doctor in [place] 2-3 times total. Signed release of records form to get her records from [place]. Was planning on seeing OB in [place] but states they told her she was too high risk and needed to come here for care. Had one episode of threatened PTL 05/05. Was given fluids at hospital. Denies any medication given to stop labor.TKRN Social work met with patient and her family today to help get her in touch w/ local resources. Juan David De Leon MD History of hypothyroidism 05/23/2019 History of depression 05/23/20192022 Overview: 07/01/2023s. Pt has a history of anxiety/epression diagnosed at age 13. She believes she did have depression.. She has been off medication since 2019. Believes she may have h a prescription available but not sure at what pharmacy. Discussed increased risks of depression during and and importance of reporting the development or worsening of symptoms should they occur. Pt states she had suicidal thoughts at age 14, but none since. Denies any psychiatric hospitalizations. I have advised her that she may want to establish care at the counseling center and this information is provided to her. Family history of congenital heart defect 05/23/2019 07/12/2019 Overview: 05/23/2019FOB was born premature and with a hole in heart. He had surgical correction on heart andand stomach but unsure why he had stomach surgery. TKRN Pure hyperglyceridemia 11/03/201110/09 documented as of this encounter (statuses as of 12/10/2023) [facility]09-27-2023 History of Past illness Narrative* Problem Noted Date Diagnosed Date Resolved Date UTI (urinary tract infection ) in , antepartum 07/01/2023 07/06/2023 Overview: 3Patient was seen in urgent care for a yeast infection on June 14 following an antibiotic she was given at [facility] for for UTI May 28. Patient states symptoms have resolved. TKRN Diabetes 05/27/2019 07/06/2023 Encounter for supervision of high risk with insufficient care, antepartum 05/23/2019 07/12/2019 Overview: 05/23/2019Recently moved here from [place] May 07. She states that she saw the doctor in [place] 2-3 times total. Signed release of records form to get her records from [place]. Was planning on seeing OB in [place] but states they told her she was too high risk and needed to come here for care. Had one episode of threatened PTL 05/05. Was given fluids at hospital. Denies any medication given to stop labor.TKRN Social work met with patient and her family today to help get her in touch w/ local resources. Juan David De Leon MD History of hypothyroidism 05/23/2019 History of depression 05/23/20192022 Overview: 07/01/2023s. Pt has a history of anxiety/epression diagnosed at age 13. She believes she did have depression.. She has been off medication since 2018. Believes she may have h a prescription available but not sure at what pharmacy. Discussed increased risks of depression during and and importance of reporting the development or worsening of symptoms should they occur. Pt states she had suicidal thoughts at age 14, but none since. Denies any psychiatric hospitalizations. I have advised her that she may want to establish care at the counseling center and this information is provided to her. History of herpes genitalis 05/23/2019 12/15/2023 Family history of congenital heart defect 05/23/2019 07/12/2019 Overview: 05/23/2019FOB was born premature and with a hole in heart. He had surgical correction on heart andand stomach but unsure why he had stomach surgery. TKRN Pure hyperglyceridemia 11/03/201110/09 documented as of this encounter (statuses as of 12/15/2023) [facility] History of Past illness Narrative* Problem Noted Date Diagnosed Date Resolved Date UTI (urinary tract infection ) in , antepartum 07/01/2023 07/06/2023 Overview: 07/01/2023atient was seen in urgent care for a yeast infection on June 14 following an antibiotic she was given at [facility] for for UTI May 28. Patient states symptoms have resolved. TKRN Diabetes 05/27/2019 07/06/2023 Encounter for supervision of high risk with insufficient care, antepartum 05/23/2019 07/12/2019 Overview: 05/23/2019Recently moved here from [place] May 07. She states that she saw the doctor in [place] 2-3 times total. Signed release of records form to get her records from [place]. Was planning on seeing OB in [place] but states they told her she was too high risk and needed to come here for care. Had one episode of threatened PTL 05/05. Was given fluids at hospital. Denies any medication given to stop labor.TKRN Social work met with patient and her family today to help get her in touch w/ local resources. Juan David De Leon MD History of hypothyroidism 05/23/2019 History of depression 05/23/20192022 Overview: 07/01/2023s. Pt has a history of anxiety/epression diagnosed at age 13. She believes she did have depression.. She has been off medication since 2018. Believes she may have h a prescription available but not sure at what pharmacy. Discussed increased risks of depression during and and importance of reporting the development or worsening of symptoms should they occur. Pt states she had suicidal thoughts at age 14, but none since. Denies any psychiatric hospitalizations. I have advised her that she may want to establish care at the counseling center and this information is provided to her. History of herpes genitalis 05/23/2019 12/15/2023 Family history of congenital heart defect 05/23/2019 07/12/2019 Overview: 05/23/2019FOB was born premature and with a hole in heart. He had surgical correction on heart andand stomach but unsure why he had stomach surgery. TKRN Pure hyperglyceridemia 11/03/201110/09 documented as of this encounter (statuses as of 12/18/2023) [facility]09-27-2023 History of Past illness Narrative* Problem Noted Date Diagnosed Date Resolved Date UTI (urinary tract infection ) in , antepartum 07/01/2023 07/06/2023 Overview: 3Patient was seen in urgent care for a yeast infection on June 14 following an antibiotic she was given at [facility] for for UTI May 28. Patient states symptoms have resolved. TKRN Diabetes 05/27/2019 07/06/2023 Encounter for supervision of high risk with insufficient care, antepartum 05/23/2019 07/12/2019 Overview: 05/23/2019Recently moved here from [place] May 07. She states that she saw the doctor in [place] 2-3 times total. Signed release of records form to get her records from [place]. Was planning on seeing OB in [place] but states they told her she was too high risk and needed to come here for care. Had one episode of threatened PTL 05/05. Was given fluids at hospital. Denies any medication given to stop labor.TKRN Social work met with patient and her family today to help get her in touch w/ local resources. Juan David De Leon MD History of hypothyroidism 05/23/2019 History of depression 05/23/20192022 Overview: 07/01/2023s. Pt has a history of anxiety/epression diagnosed at age 13. She believes she did have depression.. She has been off medication since 2019. Believes she may have h a prescription available but not sure at what pharmacy. Discussed increased risks of depression during and and importance of reporting the development or worsening of symptoms should they occur. Pt states she had suicidal thoughts at age 14, but none since. Denies any psychiatric hospitalizations. I have advised her that she may want to establish care at the counseling center and this information is provided to her. History of herpes genitalis 05/23/2019 12/15/2023 Family history of congenital heart defect 05/23/2019 07/12/2019 Overview: 05/23/2019FOB was born premature and with a hole in heart. He had surgical correction on heart andand stomach but unsure why he had stomach surgery. TKRN Pure hyperglyceridemia 11/03/201110/09 documented as of this encounter (statuses as of 12/18/2023) [facility]09[facility]20[facility] History of Past illness Narrative* Problem Noted Date Diagnosed Date Resolved Date UTI (urinary tract infection ) in , antepartum 07/01/2023 07/06/2023 Overview: 3Patient was seen in urgent care for a yeast infection on June 14 following an antibiotic she was given at [place] for for UTI May 28. Patient states symptoms have resolved. TKRN Diabetes 05/27/2019 07/06/2023 Encounter for supervision of high risk with insufficient care, antepartum 05/23/2019 07/12/2019 Overview: 05/23/2019Recently moved here from [place] May 07. She states that she saw the doctor in [place] 2-3 times total. Signed release of records form to get her records from [place]. Was planning on seeing OB in [place] but states they told her she was too high risk and needed to come here for care. Had one episode of threatened PTL 05/05. Was given fluids at hospital. Denies any medication given to stop labor.TKRN Social work met with patient and her family today to help get her in touch w/ local resources. Juan David De Leon MD History of hypothyroidism 05/23/2019 History of depression 05/23/20192022 Overview: 07/01/2023s. Pt has a history of anxiety/epression diagnosed at age 13. She believes she did have depression.. She has been off medication since 2019. Believes she may have h a prescription available but not sure at what pharmacy. Discussed increased risks of depression during and and importance of reporting the development or worsening of symptoms should they occur. Pt states she had suicidal thoughts at age 14, but none since. Denies any psychiatric hospitalizations. I have advised her that she may want to establish care at the counseling center and this information is provided to her. History of herpes genitalis 05/23/2019 12/15/2023 Family history of congenital heart defect 05/23/2019 07/12/2019 Overview: 05/23/2019FOB was born premature and with a hole in heart. He had surgical correction on heart andand stomach but unsure why he had stomach surgery. TKRN Pure hyperglyceridemia 11/03/201110/09 documented as of this encounter (statuses as of 12/22/2023) [facility] History of Past illness Narrative* Problem Noted Date Diagnosed Date Resolved Date UTI (urinary tract infection ) in , antepartum 07/01/2023 07/06/2023 Overview: 07/01/2023atient was seen in urgent care for a yeast infection on June 14 following an antibiotic she was given at [facility] for for UTI May 28. Patient states symptoms have resolved. TKRLeeann Diabetes 05/27/2019 07/06/2023 Encounter for supervision of high risk with insufficient care, antepartum 05/23/2019 07/12/2019 Overview: 05/23/2019Recently moved here from [place] May 07. She states that she saw the doctor in [place] 2-3 times total. Signed release of records form to get her records from [place]. Was planning on seeing OB in [place] but states they told her she was too high risk and needed to come here for care. Had one episode of threatened PTL 05/05. Was given fluids at hospital. Denies any medication given to stop labor.TKRN Social work met with patient and her family today to help get her in touch w/ local resources. Juan David De Leon MD History of hypothyroidism 05/23/2019 History of depression 05/23/20192022 Overview: 07/01/2023s. Pt has a history of anxiety/epression diagnosed at age 13. She believes she did have depression.. She has been off medication since 2019. Believes she may have h a prescription available but not sure at what pharmacy. Discussed increased risks of depression during and and importance of reporting the development or worsening of symptoms should they occur. Pt states she had suicidal thoughts at age 14, but none since. Denies any psychiatric hospitalizations. I have advised her that she may want to establish care at the counseling center and this information is provided to her. History of herpes genitalis 05/23/2019 12/15/2023 Family history of congenital heart defect 05/23/2019 07/12/2019 Overview: 05/23/2019FOB was born premature and with a hole in heart. He had surgical correction on heart andand stomach but unsure why he had stomach surgery. TKRN Pure hyperglyceridemia 11/03/201110/09 documented as of this encounter (statuses as of 12/22/2023) [facility] History of Past illness Narrative* Problem Noted Date Diagnosed Date Resolved Date UTI (urinary tract infection ) in , antepartum 07/01/2023 07/06/2023 Overview: 07/01/2023atient was seen in urgent care for a yeast infection on June 14 following an antibiotic she was given at [place] for for UTI May 28. Patient states symptoms have resolved. TKRN Diabetes 05/27/2019 07/06/2023 Encounter for supervision of high risk with insufficient care, antepartum 05/23/2019 07/12/2019 Overview: 05/23/2019Recently moved here from [place] May 07. She states that she saw the doctor in [place] 2-3 times total. Signed release of records form to get her records from [place]. Was planning on seeing OB in [place] but states they told her she was too high risk and needed to come here for care. Had one episode of threatened PTL 05/05. Was given fluids at hospital. Denies any medication given to stop labor.TKRN Social work met with patient and her family today to help get her in touch w/ local resources. Juan David De Leon MD History of hypothyroidism 05/23/2019 History of depression 05/23/20192022 Overview: 07/01/2023s. Pt has a history of anxiety/epression diagnosed at age 13. She believes she did have depression.. She has been off medication since 2018. Believes she may have h a prescription available but not sure at what pharmacy. Discussed increased risks of depression during and and importance of reporting the development or worsening of symptoms should they occur. Pt states she had suicidal thoughts at age 14, but none since. Denies any psychiatric hospitalizations. I have advised her that she may want to establish care at the counseling center and this information is provided to her. History of herpes genitalis 05/23/2019 12/15/2023 Family history of congenital heart defect 05/23/2019 07/12/2019 Overview: 05/23/2019FOB was born premature and with a hole in heart. He had surgical correction on heart andand stomach but unsure why he had stomach surgery. TKRN Pure hyperglyceridemia 11/03/201110/09 documented as of this encounter (statuses as of 12/22/2023) [facility] History of Past illness Narrative* Problem Noted Date Diagnosed Date Resolved Date UTI (urinary tract infection ) in , antepartum 07/01/2023 07/06/2023 Overview: 07/01/2023atient was seen in urgent care for a yeast infection on June 14 following an antibiotic she was given at [facility] for for UTI May 28. Patient states symptoms have resolved. TKRN Diabetes 05/27/2019 07/06/2023 Encounter for supervision of high risk with insufficient care, antepartum 05/23/2019 07/12/2019 Overview: 05/23/2019Recently moved here from [place] May 07. She states that she saw the doctor in [place] 2-3 times total. Signed release of records form to get her records from [place]. Was planning on seeing OB in [place] but states they told her she was too high risk and needed to come here for care. Had one episode of threatened PTL 05/05. Was given fluids at hospital. Denies any medication given to stop labor.TKRN Social work met with patient and her family today to help get her in touch w/ local resources. Juan David De Leon MD History of hypothyroidism 05/23/2019 History of depression 05/23/20192022 Overview: 07/01/2023s. Pt has a history of anxiety/epression diagnosed at age 13. She believes she did have depression.. She has been off medication since 2018. Believes she may have h a prescription available but not sure at what pharmacy. Discussed increased risks of depression during and and importance of reporting the development or worsening of symptoms should they occur. Pt states she had suicidal thoughts at age 14, but none since. Denies any psychiatric hospitalizations. I have advised her that she may want to establish care at the counseling center and this information is provided to her. History of herpes genitalis 05/23/2019 12/15/2023 Family history of congenital heart defect 05/23/2019 07/12/2019 Overview: 05/23/2018FOB was born premature and with a hole in heart. He had surgical correction on heart andand stomach but unsure why he had stomach surgery. TKRN Pure hyperglyceridemia 11/03/201110/09 documented as of this encounter (statuses as of 12/25/2023) [facility]09-27-2023 History of Past illness Narrative* Problem Noted Date Diagnosed Date Resolved Date UTI (urinary tract infection ) in , antepartum 07/01/2023 07/06/2023 Overview: 3Patient was seen in urgent care for a yeast infection on June 14 following an antibiotic she was given at [place] [facility] for for UTI May 28. Patient states symptoms have resolved. TKRN Diabetes 05/27/2019 07/06/2023 Encounter for supervision of high risk with insufficient care, antepartum 05/23/2019 07/12/2019 Overview: 05/23/2019Recently moved here from [place] May 07. She states that she saw the doctor in [place] 2-3 times total. Signed release of records form to get her records from [place]. Was planning on seeing OB in [place] but states they told her she was too high risk and needed to come here for care. Had one episode of threatened PTL 05/05. Was given fluids at hospital. Denies any medication given to stop labor.TKRN Social work met with patient and her family today to help get her in touch w/ local resources. Juan David De Leon MD History of hypothyroidism 05/23/2019 History of depression 05/23/20192022 Overview: 07/01/2023s. Pt has a history of anxiety/epression diagnosed at age 13. She believes she did have depression.. She has been off medication since 2018. Believes she may have h a prescription available but not sure at what pharmacy. Discussed increased risks of depression during and and importance of reporting the development or worsening of symptoms should they occur. Pt states she had suicidal thoughts at age 14, but none since. Denies any psychiatric hospitalizations. I have advised her that she may want to establish care at the counseling center and this information is provided to her. History of herpes genitalis 05/23/2019 12/15/2023 Family history of congenital heart defect 05/23/2019 07/12/2019 Overview: 05/23/2019FOB was born premature and with a hole in heart. He had surgical correction on heart andand stomach but unsure why he had stomach surgery. TKRN Pure hyperglyceridemia 11/03/201110/09 documented as of this encounter (statuses as of 12/28/2023) [facility]09-27-2023 History of Past illness Narrative* Problem Noted Date Diagnosed Date Resolved Date UTI (urinary tract infection ) in , antepartum 07/01/2023 07/06/2023 Overview: 3Patient was seen in urgent care for a yeast infection on June 14 following an antibiotic she was given at [place] for for UTI May 28. Patient states symptoms have resolved. TKRN Diabetes 05/27/2019 07/06/2023 Encounter for supervision of high risk with insufficient care, antepartum 05/23/2019 07/12/2019 Overview: 05/23/2019Recently moved here from [place] May 07. She states that she saw the doctor in [place] 2-3 times total. Signed release of records form to get her records from [place]. Was planning on seeing OB in [place] but states they told her she was too high risk and needed to come here for care. Had one episode of threatened PTL 05/05. Was given fluids at hospital. Denies any medication given to stop labor.TKRN Social work met with patient and her family today to help get her in touch w/ local resources. Juan David De Leon MD History of hypothyroidism 05/23/2019 History of depression 05/23/20192022 Overview: 07/01/2023s. Pt has a history of anxiety/epression diagnosed at age 13. She believes she did have depression.. She has been off medication since 2019. Believes she may have h a prescription available but not sure at what pharmacy. Discussed increased risks of depression during and and importance of reporting the development or worsening of symptoms should they occur. Pt states she had suicidal thoughts at age 14, but none since. Denies any psychiatric hospitalizations. I have advised her that she may want to establish care at the counseling center and this information is provided to her. History of herpes genitalis 05/23/2019 12/15/2023 Family history of congenital heart defect 05/23/2019 07/12/2019 Overview: 05/23/2019FOB was born premature and with a hole in heart. He had surgical correction on heart andand stomach but unsure why he had stomach surgery. TKRN Pure hyperglyceridemia 11/03/201110/09 documented as of this encounter (statuses as of 12/28/2023) [facility]09-27-2023 History of Past illness Narrative* Problem Noted Date Diagnosed Date Resolved Date UTI (urinary tract infection ) in , antepartum 07/01/2023 07/06/2023 Overview: 3Patient was seen in urgent care for a yeast infection on June 14 following an antibiotic she was given at [facility] for for UTI May 28. Patient states symptoms have resolved. TKRN Diabetes 05/27/2019 07/06/2023 Encounter for supervision of high risk with insufficient care, antepartum 05/23/2019 07/12/2019 Overview: 05/23/2019Recently moved here from [place] May 07. She states that she saw the doctor in [place] 2-3 times total. Signed release of records form to get her records from [place]. Was planning on seeing OB in [place] but states they told her she was too high risk and needed to come here for care. Had one episode of threatened PTL 05/05. Was given fluids at hospital. Denies any medication given to stop labor.TKRN Social work met with patient and her family today to help get her in touch w/ local resources. Juan David De Leon MD History of hypothyroidism 05/23/2019 History of depression 05/23/20192022 Overview: 07/01/2023s. Pt has a history of anxiety/epression diagnosed at age 13. She believes she did have depression.. She has been off medication since 2018. Believes she may have h a prescription available but not sure at what pharmacy. Discussed increased risks of depression during and and importance of reporting the development or worsening of symptoms should they occur. Pt states she had suicidal thoughts at age 14, but none since. Denies any psychiatric hospitalizations. I have advised her that she may want to establish care at the counseling center and this information is provided to her. History of herpes genitalis 05/23/2019 12/15/2023 Family history of congenital heart defect 05/23/2019 07/12/2019 Overview: 05/23/2019FOB was born premature and with a hole in heart. He had surgical correction on heart andand stomach but unsure why he had stomach surgery. TKRN Pure hyperglyceridemia 11/03/201110/09 documented as of this encounter (statuses as of 12/28/2023) [facility]09-27-2023 History of Past illness Narrative* Problem Noted Date Diagnosed Date Resolved Date UTI (urinary tract infection ) in , antepartum 07/01/2023 07/06/2023 Overview: 3Patient was seen in urgent care for a yeast infection on June 14 following an antibiotic she was given at [facility] for for UTI May 28. Patient states symptoms have resolved. TKRN Diabetes 05/27/2019 07/06/2023 Encounter for supervision of high risk with insufficient care, antepartum 05/23/2019 07/12/2019 Overview: 05/23/2019Recently moved here from [place] May 07. She states that she saw the doctor in [place] 2-3 times total. Signed release of records form to get her records from [place]. Was planning on seeing OB in [place] but states they told her she was too high risk and needed to come here for care. Had one episode of threatened PTL 05/05. Was given fluids at hospital. Denies any medication given to stop labor.TKRN Social work met with patient and her family today to help get her in touch w/ local resources. Juan David De Leon MD History of hypothyroidism 05/23/2019 History of depression 05/23/20192022 Overview: 07/01/2023s. Pt has a history of anxiety/epression diagnosed at age 13. She believes she did have depression.. She has been off medication since 2018. Believes she may have h a prescription available but not sure at what pharmacy. Discussed increased risks of depression during and and importance of reporting the development or worsening of symptoms should they occur. Pt states she had suicidal thoughts at age 14, but none since. Denies any psychiatric hospitalizations. I have advised her that she may want to establish care at the counseling center and this information is provided to her. History of herpes genitalis 05/23/2019 12/15/2023 Family history of congenital heart defect 05/23/2019 07/12/2019 Overview: 05/23/2019FOB was born premature and with a hole in heart. He had surgical correction on heart andand stomach but unsure why he had stomach surgery. TKRN Pure hyperglyceridemia 11/03/201110/09 documented as of this encounter (statuses as of 12/28/2023) [facility]09-27-2023 History of Past illness Narrative* Problem Noted Date Diagnosed Date Resolved Date UTI (urinary tract infection ) in , antepartum 07/01/2023 07/06/2023 Overview: 3Patient was seen in urgent care for a yeast infection on June 14 following an antibiotic she was given at [facility] for for UTI May 28. Patient states symptoms have resolved. TKRN Diabetes 05/27/2019 07/06/2023 Encounter for supervision of high risk with insufficient care, antepartum 05/23/2019 07/12/2019 Overview: 05/23/2019Recently moved here from [place] May 07. She states that she saw the doctor in [place] 2-3 times total. Signed release of records form to get her records from [place]. Was planning on seeing OB in [place] but states they told her she was too high risk and needed to come here for care. Had one episode of threatened PTL 05/05. Was given fluids at hospital. Denies any medication given to stop labor.TKRN Social work met with patient and her family today to help get her in touch w/ local resources. Juan David De Leon MD History of hypothyroidism 05/23/2019 History of depression 05/23/20192022 Overview: 07/01/2023s. Pt has a history of anxiety/epression diagnosed at age 13. She believes she did have depression.. She has been off medication since 2018. Believes she may have h a prescription available but not sure at what pharmacy. Discussed increased risks of depression during and and importance of reporting the development or worsening of symptoms should they occur. Pt states she had suicidal thoughts at age 14, but none since. Denies any psychiatric hospitalizations. I have advised her that she may want to establish care at the counseling center and this information is provided to her. History of herpes genitalis 05/23/2019 12/15/2023 Family history of congenital heart defect 05/23/2019 07/12/2019 Overview: 05/23/2019FOB was born premature and with a hole in heart. He had surgical correction on heart andand stomach but unsure why he had stomach surgery. TKRN Pure hyperglyceridemia 11/03/201110/09 documented as of this encounter (statuses as of 12/29/2023) [facility]09-27-2023 History of Past illness Narrative* Problem Noted Date Diagnosed Date Resolved Date UTI (urinary tract infection ) in , antepartum 07/01/2023 07/06/2023 Overview: 3Patient was seen in urgent care for a yeast infection on June 14 following an antibiotic she was given at [facility] for for UTI May 28. Patient states symptoms have resolved. DEYANIRA Diabetes 05/27/2019 07/06/2023 Encounter for supervision of high risk with insufficient care, antepartum 05/23/2019 07/12/2019 Overview: 05/23/2019Recently moved here from [place] May 07. She states that she saw the doctor in [place] 2-3 times total. Signed release of records form to get her records from [place]. Was planning on seeing OB in [place] but states they told her she was too high risk and needed to come here for care. Had one episode of threatened PTL 05/05. Was given fluids at hospital. Denies any medication given to stop labor.GONZÁLEZRLeeann Social work met with patient and her family today to help get her in touch w/ local resources. Juan David De Leon MD History of hypothyroidism 05/23/2019 History of depression 05/23/20192022 Overview: 07/01/2023s. Pt has a history of anxiety/epression diagnosed at age 13. She believes she did have depression.. She has been off medication since 2018. Believes she may have h a prescription available but not sure at what pharmacy. Discussed increased risks of depression during and and importance of reporting the development or worsening of symptoms should they occur. Pt states she had suicidal thoughts at age 14, but none since. Denies any psychiatric hospitalizations. I have advised her that she may want to establish care at the counseling center and this information is provided to her. History of herpes genitalis 05/23/2019 12/15/2023 Family history of congenital heart defect 05/23/2019 07/12/2019 Overview: 05/23/2018FOB was born premature and with a hole in heart. He had surgical correction on heart andand stomach but unsure why he had stomach surgery. TKRN Severe obesity 01/25/2014 12/29/2023 Pure hyperglyceridemia 11/03/201110/09 documented as of this encounter (statuses as of 12/29/2023) [facility]09-27-2023 History of Past illness Narrative* Problem Noted Date Diagnosed Date Resolved Date UTI (urinary tract infection ) in , antepartum 07/01/2023 07/06/2023 Overview: 07/01/2023atient was seen in urgent care for a yeast infection on June 14 following an antibiotic she was given at [facility] for for UTI May 28. Patient states symptoms have resolved. TKRN Diabetes 05/27/2019 07/06/2023 Encounter for supervision of high risk with insufficient care, antepartum 05/23/2019 07/12/2019 Overview: 05/23/2019Recently moved here from [place] May 07. She states that she saw the doctor in [place] 2-3 times total. Signed release of records form to get her records from [place]. Was planning on seeing OB in [place] but states they told her she was too high risk and needed to come here for care. Had one episode of threatened PTL 05/05. Was given fluids at hospital. Denies any medication given to stop labor.TKRN Social work met with patient and her family today to help get her in touch w/ local resources. Juan David De Leon MD History of hypothyroidism 05/23/2019 History of depression 05/23/20192022 Overview: 07/01/2023s. Pt has a history of anxiety/epression diagnosed at age 13. She believes she did have depression.. She has been off medication since 2018. Believes she may have h a prescription available but not sure at what pharmacy. Discussed increased risks of depression during and and importance of reporting the development or worsening of symptoms should they occur. Pt states she had suicidal thoughts at age 14, but none since. Denies any psychiatric hospitalizations. I have advised her that she may want to establish care at the counseling center and this information is provided to her. History of herpes genitalis 05/23/2019 12/15/2023 Family history of congenital heart defect 05/23/2019 07/12/2019 Overview: 05/23/2019FOB was born premature and with a hole in heart. He had surgical correction on heart andand stomach but unsure why he had stomach surgery. TKRN Severe obesity 01/25/2014 12/29/2023 Pure hyperglyceridemia 11/03/201110/09 documented as of this encounter (statuses as of 12/29/2023) [facility]09-[facility]-20[facility] History of Past illness Narrative* Problem Noted Date Diagnosed Date Resolved Date UTI (urinary tract infection ) in , antepartum 07/01/2023 07/06/2023 Overview: 07/01/2023atient was seen in urgent care for a yeast infection on June 14 following an antibiotic she was given at [facility] for for UTI May 28. Patient states symptoms have resolved. TKRN Diabetes 05/27/2019 07/06/2023 Encounter for supervision of high risk with insufficient care, antepartum 05/23/2019 07/12/2019 Overview: 05/23/2019Recently moved here from [place] May 07. She states that she saw the doctor in [place] 2-3 times total. Signed release of records form to get her records from [place]. Was planning on seeing OB in [place] but states they told her she was too high risk and needed to come here for care. Had one episode of threatened PTL 05/05. Was given fluids at hospital. Denies any medication given to stop labor.TKRN Social work met with patient and her family today to help get her in touch w/ local resources. Juan David De Leon MD History of hypothyroidism 05/23/2019 History of depression 05/23/20192022 Overview: 07/01/2023s. Pt has a history of anxiety/epression diagnosed at age 13. She believes she did have depression.. She has been off medication since 2018. Believes she may have h a prescription available but not sure at what pharmacy. Discussed increased risks of depression during and and importance of reporting the development or worsening of symptoms should they occur. Pt states she had suicidal thoughts at age 14, but none since. Denies any psychiatric hospitalizations. I have advised her that she may want to establish care at the counseling center and this information is provided to her. History of herpes genitalis 05/23/2019 12/15/2023 Family history of congenital heart defect 05/23/2019 07/12/2019 Overview: 05/23/2019FOB was born premature and with a hole in heart. He had surgical correction on heart andand stomach but unsure why he had stomach surgery. TKRN Severe obesity 01/25/2014 12/29/2023 Pure hyperglyceridemia 11/03/201110/09 documented as of this encounter (statuses as of 01/05/2024) [facility]09[facility] History of Past illness Narrative* Problem Noted Date Diagnosed Date Resolved Date UTI (urinary tract infection ) in , antepartum 07/01/2023 07/06/2023 Overview: 07/01/2023atient was seen in urgent care for a yeast infection on June 14 following an antibiotic she was given at [place] for for UTI May 28. Patient states symptoms have resolved. TKRN Diabetes 05/27/2019 07/06/2023 Encounter for supervision of high risk with insufficient care, antepartum 05/23/2019 07/12/2019 Overview: 05/23/2019Recently moved here from [place] May 07. She states that she saw the doctor in [place] 2-3 times total. Signed release of records form to get her records from [place]. Was planning on seeing OB in [place] but states they told her she was too high risk and needed to come here for care. Had one episode of threatened PTL 05/05. Was given fluids at hospital. Denies any medication given to stop labor.TKRN Social work met with patient and her family today to help get her in touch w/ local resources. Juan David De Leon MD History of hypothyroidism 05/23/2019 History of depression 05/23/20192022 Overview: 07/01/2023s. Pt has a history of anxiety/epression diagnosed at age 13. She believes she did have depression.. She has been off medication since 2018. Believes she may have h a prescription available but not sure at what pharmacy. Discussed increased risks of depression during and and importance of reporting the development or worsening of symptoms should they occur. Pt states she had suicidal thoughts at age 14, but none since. Denies any psychiatric hospitalizations. I have advised her that she may want to establish care at the counseling center and this information is provided to her. History of herpes genitalis 05/23/2019 12/15/2023 Family history of congenital heart defect 05/23/2019 07/12/2019 Overview: 05/23/2019FOB was born premature and with a hole in heart. He had surgical correction on heart andand stomach but unsure why he had stomach surgery. TKRN Severe obesity 01/25/2014 12/29/2023 Pure hyperglyceridemia 11/03/201110/09 documented as of this encounter (statuses as of 01/05/2024) [facility] History of Past illness Narrative* Problem Noted Date Diagnosed Date Resolved Date UTI (urinary tract infection ) in , antepartum 07/01/2023 07/06/2023 Overview: 3Patient was seen in urgent care for a yeast infection on June 14 following an antibiotic she was given at [place] for for UTI May 28. Patient states symptoms have resolved. TKRN Diabetes 05/27/2019 07/06/2023 Encounter for supervision of high risk with insufficient care, antepartum 05/23/2019 07/12/2019 Overview: 05/23/2019Recently moved here from [place] May 07. She states that she saw the doctor in [place] 2-3 times total. Signed release of records form to get her records from [place]. Was planning on seeing OB in [place] but states they told her she was too high risk and needed to come here for care. Had one episode of threatened PTL 05/05. Was given fluids at hospital. Denies any medication given to stop labor.TKRN Social work met with patient and her family today to help get her in touch w/ local resources. Juan David De Leon MD History of hypothyroidism 05/23/2019 History of depression 05/23/20192022 Overview: 07/01/2023s. Pt has a history of anxiety/epression diagnosed at age 13. She believes she did have depression.. She has been off medication since 2019. Believes she may have h a prescription available but not sure at what pharmacy. Discussed increased risks of depression during and and importance of reporting the development or worsening of symptoms should they occur. Pt states she had suicidal thoughts at age 14, but none since. Denies any psychiatric hospitalizations. I have advised her that she may want to establish care at the counseling center and this information is provided to her. History of herpes genitalis 05/23/2019 12/15/2023 Family history of congenital heart defect 05/23/2019 07/12/2019 Overview: 05/23/2019FOB was born premature and with a hole in heart. He had surgical correction on heart andand stomach but unsure why he had stomach surgery. TKRN Severe obesity 01/25/2014 12/29/2023 Pure hyperglyceridemia 11/03/201110/09 documented as of this encounter (statuses as of 01/05/2024) [facility] History of Past illness Narrative* Problem Noted Date Diagnosed Date Resolved Date UTI (urinary tract infection ) in , antepartum 07/01/2023 07/06/2023 Overview: 07/01/2023atient was seen in urgent care for a yeast infection on June 14 following an antibiotic she was given at [place] for for UTI May 28. Patient states symptoms have resolved. TKRN Diabetes 05/27/2019 07/06/2023 Encounter for supervision of high risk with insufficient care, antepartum 05/23/2019 07/12/2019 Overview: 05/23/2019Recently moved here from [place] May 07. She states that she saw the doctor in [place] 2-3 times total. Signed release of records form to get her records from [place]. Was planning on seeing OB in [place] but states they told her she was too high risk and needed to come here for care. Had one episode of threatened PTL 05/05. Was given fluids at hospital. Denies any medication given to stop labor.TKRN Social work met with patient and her family today to help get her in touch w/ local resources. Juan David De Leon MD History of hypothyroidism 05/23/2019 History of depression 05/23/20192022 Overview: 07/01/2023s. Pt has a history of anxiety/epression diagnosed at age 13. She believes she did have depression.. She has been off medication since 2018. Believes she may have h a prescription available but not sure at what pharmacy. Discussed increased risks of depression during and and importance of reporting the development or worsening of symptoms should they occur. Pt states she had suicidal thoughts at age 14, but none since. Denies any psychiatric hospitalizations. I have advised her that she may want to establish care at the counseling center and this information is provided to her. History of herpes genitalis 05/23/2019 12/15/2023 Family history of congenital heart defect 05/23/2019 07/12/2019 Overview: 05/23/2019FOB was born premature and with a hole in heart. He had surgical correction on heart andand stomach but unsure why he had stomach surgery. TKRN Severe obesity 01/25/2014 12/29/2023 Pure hyperglyceridemia 11/03/201110/09 documented as of this encounter (statuses as of 01/05/2024) [facility] History of Past illness Narrative* Problem Noted Date Diagnosed Date Resolved Date UTI (urinary tract infection ) in , antepartum 07/01/2023 07/06/2023 Overview: 3Patient was seen in urgent care for a yeast infection on June 14 following an antibiotic she was given at [place] [facility] for for UTI May 28. Patient states symptoms have resolved. TKRN Diabetes 05/27/2019 07/06/2023 Encounter for supervision of high risk with insufficient care, antepartum 05/23/2019 07/12/2019 Overview: 05/23/2019Recently moved here from [place] May 07. She states that she saw the doctor in [place] 2-3 times total. Signed release of records form to get her records from [place]. Was planning on seeing OB in [place] but states they told her she was too high risk and needed to come here for care. Had one episode of threatened PTL 05/05. Was given fluids at hospital. Denies any medication given to stop labor.TKRN Social work met with patient and her family today to help get her in touch w/ local resources. Juan David De Leon MD History of hypothyroidism 05/23/2019 History of depression 05/23/20192022 Overview: 07/01/2023s. Pt has a history of anxiety/epression diagnosed at age 13. She believes she did have depression.. She has been off medication since 2018. Believes she may have h a prescription available but not sure at what pharmacy. Discussed increased risks of depression during and and importance of reporting the development or worsening of symptoms should they occur. Pt states she had suicidal thoughts at age 14, but none since. Denies any psychiatric hospitalizations. I have advised her that she may want to establish care at the counseling center and this information is provided to her. History of herpes genitalis 05/23/2019 12/15/2023 Family history of congenital heart defect 05/23/2019 07/12/2019 Overview: 05/23/2019FOB was born premature and with a hole in heart. He had surgical correction on heart andand stomach but unsure why he had stomach surgery. TKRN Severe obesity 01/25/2014 12/29/2023 Pure hyperglyceridemia 11/03/201110/09 documented as of this encounter (statuses as of 01/08/2024) [facility] Miscellaneous Notes* Telephone Encounter - Nolvia Hay RN - 06/22/2023 11:44 AM EDT Patient aware. PNOB scheduled 06/29 and NOB with RR 07/06. Instructed to call with any bleeding, pain, or other concerns. Nolvia Hay RN * Telephone Encounter - Nolvia Hay RN - 06/19/2023 5:17 PM EDT Anya- see message below. If we schedule her for a New OB on 07/06 with RR, can you see her for a PNOB prior to this? * Telephone Encounter - Juan David De Leon MD - 06/19/2023 5:07 PM EDT Looks like early , quant increasing appropriately. If worsening pain or bleeding let us know. Can we do PNOB earlier and I can see her for NOB on afternoon of the ? Want 30 min for her please. Juan David De Leon MD * Telephone Encounter - Anuja Lozano RN - 06/19/2023 3:30 PM EDT Patient had both quants done, but only 1 day apart on 06/17 and 06/18. Please review. hCG Quantitative, Blood Date Value 06/18/2023 3,222.0 mIU/mL 06/17/2023 2,706.0 mIU/mL Anuja Lozano RN * Telephone Encounter - Anuja Lozano RN - 06/17/2023 10:09 AM EDT Patient notified. She is going to try to get labs done today and 06/19/23, but may not be able to get first one until tomorrow. Leave open for results. Anuja Lozano RN * Telephone Encounter - Mey Almanzar MD - 06/17/2023 9:39 AM EDT Quants please. * Telephone Encounter - Naina Damian RN - 06/16/2023 5:34 PM EDT I called patient because she was scheduled for pnob 07/13 and no lmp was listed. Patient states that she was seen at [facility] 05/28 for flank pain. Was told in the past that my kidneys are messed up from the diabetes . CT scan was done with dye. Patient states test was negative there. Treated for UTi. Was seen again 06/16 at [facility] Urgent care today to confirm . Had positive test at home 06/12/2023 and at [facility]. Patient continues to have occasional pain when she lays down that is sharp and shooting. She rates it a 5 on pain scale. She denies any bleeding. Vaginal cultures pending. Patient also found to have lice. Patient is IDDM. Please a dvise if you want quant hcg's done or if patient needs appt. Ectopic/miscarriage precautions given.Pam advismckenzie documented in [facility] History of Present illness Narrative* Rolanda Frye APRN.HEREDITARY CANCER PROGRAM COORDINATOR - 06/15/2023 6:31 PM EDT Images from the original note were not included. Subjective She came in requesting a test. Patient says she had one at the end of May and it was negative but took some at home and they were positive. Patient also said that her niece and nephew are positive for lice and that she found lice in her pubic region and in her underwear. Patient also is concerned that she might have herpes outbreak. Patient says her vaginal area is uncomfortable. The history is provided by the patient. No analytical research program manager was used. Review of Systems Constitutional: Negative. Skin: Negative. Objective Physical Exam Exam conducted with a spreader present. Constitutional: Appearance: Normal appearance. Pulmonary: Effort: Pulmonary effort is normal. Genitourinary: Comments: Patient is excoriated in the area marked above. No signs of herpes. No visible lice at this time. Neurological: Mental Status: She is alert. PAST MEDICAL HISTORY Diagnosis Date Abnormal Pap smear of cervix Anemia Asthma has not used an inhaler since age 18 Complication of anesthesia has issues with breathing after being woken-uses Albuterol Depression Genital herpes Gestational diabetes Hypothyroid PCOS (polycystic ovarian syndrome) PAST SURGICAL HISTORY Procedure Laterality Date CHOLECYSTECTOMY MYRINGOTOMY x4 TONSILLECTOMY AND ADENOIDECTOMY HX ALLERGIES Amoxicillin, Mold, Red Dye, and Wheat MEDICATIONS insulin glargine (LANTUS SOLOSTAR U-100 INSULIN) 100 unit/mL (3 mL) Inject subcutaneously. insulin aspart (NOVOLOG FLEXPEN U-100 INSULIN SUBCUTANEOUS) Inject subcutaneously. levothyroxine (LEVOXYL) 25 mcg tablet Take 1 tablet by mouth once daily. Take on empty stomach. ForThyroid levothyroxine (LEVOXYL) 175 mcg tablet Take 1 tablet by mouth once daily. Take on empty stomach. For thyroid. famotidine (PEPCID) 20 mg tablet Take 20 mg by mouth twice daily. ondansetron orally disintegrating (ZOFRAN ODT) 4 mg disintegrating tablet dissolve 1 tablet by mouth every 6 hours acyclovir (ZOVIRAX) 400 mg tablet Take 1 tablet by mouth every 12 hours. levothyroxine (SYNTHROID) 175 mcg tablet Take 1 tablet by mouth daily before breakfast. metFORMIN (GLUCOPHAGE) 500 mg tablet Take 1 tablet by mouth twice daily with meals. sertraline (ZOLOFT) 100 mg tablet Take 1 tablet by mouth once daily. norgestimate 0.25 mg-ethinyl estradiol 35 mcg (SPRINTEC) 0.25-35 mg-mcg per tablet Take 1 tablet bymouth once daily. (Patient not taking: Reported on 06/15/2023) L. acidophilus-L. rhamnosus 15 billion cell cap Take 1 capsule by mouth once daily. FLORAJEN WOMEN.If on antibiotic, take at least 1-2 hours before or after antibiotic. KEEP REFRIGERATED (Patient not taking: Reported on 03/13/2023) miconazole (MONISTAT 7) 2 % vaginal cream Use 1 Applicator vaginally daily at bedtime. (Patient nottaking: Reported on 03/13/2023) FAMILY HISTORY Problem Relation Age of Onset Asthma Mother Thyroid Mother other (PCOS) Mother Diabetes Father Hypertension Father Thyroid Sister Allergies Sister other (PCOS) Sister Heart Attack Maternal Grandmother Diabetes Maternal Grandfather Heart Maternal Grandfather Cancer Paternal Grandmother Heart Paternal Grandfather Social History Tobacco Use Smoking status: Former Types: Cigarettes Quit date: 10/22/2018 Years since quittin.6 Smokeless tobacco: Never Vaping Use Vaping Use: Never used Substance Use Topics Alcohol use: Not Currently Drug use: Not Currently Types: Marijuana ASSESSMENT/PLAN: 1. Lice - ICD9: 132.9, ICD10: B85.2 (primary diagnosis) 2. Vaginal pain - ICD9: 625.9, ICD10: R10.2 - FUNGAL SCREEN 3. Possible - ICD9: V72.40, ICD10: Z32.00 - HCG QUAL UR B/O - pos Patient was instructed to get an BUSINESS LINE MANAGER for proper care. Patient says she will schedule an appointment. Swabs were done if swab comes back positive please treat accordingly. No treatments at this time. Rolanda Frye APRN.HEREDITARY CANCER PROGRAM COORDINATOR documented in [facility] Hospital Discharge instructions Patient Education 05/29/2023 01:31:43 Diabetes with High Blood Sugar Diabetes with High Blood Sugar You have been treated for high blood sugar (hyperglycemia). This may be because of an infection or other illness. Or it may be from eating too many sweets or starches. Or it may be from not taking enough insulin or other diabetes medicine. Home care Check your blood sugar level at least 2 times a day. Write it down the results. Do this before breakfast and before dinner. If you take insulin, also write down your routine insulin dose. Note any other doses you needed based on your sliding scale or as advised by your healthcare provider. Do this for the next 3 to 5 days. High blood sugar may cause symptoms that you can learn to spot. These include: Peeing often Thirst Headache Breath that smells fruity Nausea or vomiting Belly pain If you have symptoms of high blood sugar, use a blood or urine test to find out what your blood sugar level is. If it is above your usual range, use the sliding scale regular insulin dose from your healthcare provider. Call your provider for advice if you were not given a range for your insulin dose. If your blood sugar is over 240 mg/dL, check your urine for ketones. Follow-up care Follow up with your healthcare provider, or as advised. You may need to meet with your provider in the next week. You will likely look at your blood sugar records together. You may need to change your dose of insulin or other diabetes medicine. When to seek medical advice Call your healthcare provider right away if these occur: Symptoms of high blood sugar that don't get better with the treatment your provider advised. This is especially true if you also have ketones in your urine. Blood sugar over 300 mg/dl. If you can t reach your healthcare provider, go to a hospital emergencyroom or urgent care center. Call 911 Call 911 if you have any of the following: Confusion Dizziness, lightheadedness, or loss of consciousness Shortness of breath Chest pain Weakness of an arm, leg, or one side of the face Sudden trouble with speech or vision [id number] [employer]. [address] [place] [address], [place] [address]. All rights reserved. This information is not intended as a substitute for professional medical care. Always follow [facility] hospital[facility] professional's instructions. 05/29/2023 01:31:41 Abdominal Pain Abdominal Pain Abdominal pain is pain in the stomach or belly area. Everyone has this pain from time to time. In many cases it goes away on its own. But abdominal pain can sometimes be due to a serious problem, such as appendicitis. So it s important to know when to get help. Causes of abdominal pain There are many possible causes of abdominal pain. Common causes in adults include: Constipation, diarrhea, or gas Stomach acid flowing back up into the esophagus (acid reflux or heartburn) Severe acid reflux, called GERD (gastroesophageal reflux disease) A sore in the lining of the stomach or small intestine (peptic ulcer) Inflammation of the gallbladder, liver, or pancreas Gallstones or kidney stones Appendicitis Intestinal blockage An internal organ pushing through a muscle or other tissue (hernia) Urinary tract infections In women, menstrual cramps, fibroids, ovarian cysts, pelvic inflammatory disease, or endometriosis Inflammation or infection of the intestines, including Crohn's disease and ulcerative colitis Irritable bowel syndrome Diagnosing the cause of abdominal pain Your healthcare provider will give you a physical exam help find the cause of your pain. If needed,you will have tests. Belly pain has many possible causes. So it can be hard to find the reason for your pain. Giving details about your pain can help. Tell your provider where and when you feel the pain, and what makes it better or worse. Also let your provider know if you have other symptoms such as: Fever Tiredness Upset stomach (nausea) Vomiting Changes in bathroom habits Blood in the stool or black, tarry stool Weight loss that you can't explain (involuntary weight loss?) Also report any family history of stomach or intestinal problems, or cancers. Tell your provider about all your alcohol use and drug use. Tell your provider about all medicines you use, including herbs, vitamins, and supplements. Treating abdominal pain Some causes of pain need emergency medical treatment right away. These include appendicitis or a bowel blockage. Other problems can be treated with rest, fluids, or medicines. Your healthcare provider can give you specific instructions for treatment or self-care based on what is causing your pain. If you have vomiting or diarrhea, sip water or other clear fluids. When you are ready to eat solid foods again, start with small amounts of awob-mg-sdjtht, low- fat foods. These include apple sauce, toast, or crackers. When to get medical care Call 911 or go to the hospital right away if you: Can t pass stool and are vomiting Are vomiting blood or have bloody diarrhea or black, tarry diarrhea Have chest, neck, or shoulder pain Feel like you might pass out Have pain in your shoulder blades with nausea Have sudden, severe belly pain Have new, severe pain unlike any you have felt before Have a belly that is rigid, hard, and hurts to touch Call your healthcare provider if you have: Pain for more than 5 days Bloating for more than 2 days Diarrhea for more than 5 days A fever of 100.4 F (38 C) or higher, or as directed by your healthcare provider Pain that gets worse Weight loss for no reason Continued lack of appetite Blood in your stool How to prevent abdominal pain Here are some tips to help prevent abdominal pain: Eat smaller amounts of food at each meal. Don't eat greasy, fried, or other high-fat foods. Don't eat foods that give you gas. Exercise regularly. Drink plenty of fluids. To help prevent GERD symptoms: Quit smoking. Reduce alcohol and foods that increase stomach acid. Don't use aspirin or exee-ldk-zxswncf pain and fever medicines, if possible. This includes nonsteroidal anti-inflammatory drugs (NSAIDs). Lose excess weight. Finish eating at least 2 hours before you go to bed or lie down. Raise the head of your bed. [phone] [employer]. [address] [place] [address]. All rights reserved. This information is not intended as a substitute for professional medical care. Always follow yourhealthcare professional's instructions. 05/29/2023 01:31:39 Bladder Infection, Female (Adult) Bladder Infection, Female (Adult) Urine is normally doesn't have any bacteria in it. But bacteria can get into the urinary tract fromthe skin around the rectum. Or they can travel in the blood from elsewhere in the body. Once they are in your urinary tract, they can cause infection in the urethra (urethritis), the bladder (cystitis), or the kidneys (pyelonephritis). The most common place for an infection is in the bladder. This is called a bladder infection. This is one of the most common infections in women. Most bladder infections are easily treated. They are not serious unless the infection spreads to the kidney. The phrases bladder infection, UTI, and cystitis are often used to describe the same thing. But they are not always the same. Cystitis is an inflammation of the bladder. The most common cause of cystitis is an infection. Symptoms The infection causes inflammation in the urethra and bladder. This causes many of the symptoms. Themost common symptoms of a bladder infection are: Pain or burning when urinating Having to urinate more often than usual Urgent need to urinate Only a small amount of urine comes out Blood in urine Abdominal discomfort. This is usually in the lower abdomen above the pubic bone. Cloudy urine Strong- or bad-smelling urine Unable to urinate (urinary retention) Unable to hold urine in (urinary incontinence) Fever Loss of appetite Confusion (in older adults) Causes Bladder infections are not contagious. You can't get one from someone else, from a toilet seat, or from sharing a bath. The most common cause of bladder infections is bacteria from the bowels. The bacteria get onto the skin around the opening of the urethra. From there, they can get into the urine and travel up to thebladder, causing inflammation and infection. This usually happens because of: Wiping improperly after urinating. Always wipe from front to back. Bowel incontinence Procedures such as having a catheter inserted Older age Not emptying your bladder. This can allow bacteria a chance to grow in your urine. Dehydration Constipation Sex Use of a diaphragm for control Treatment Bladder infections are diagnosed by a urine test. They are treated with antibiotics and usually clear up quickly without complications. Treatment helps prevent a more serious kidney infection. Medicines Medicines can help in the treatment of a bladder infection: Take antibiotics until they are used up, even if you feel better. It is important to finish them tomake sure the infection has cleared. You can use acetaminophen or ibuprofen for pain, fever, or discomfort, unless another medicine was prescribed. If you have chronic liver or kidney disease, talk with your healthcare provider before using these medicines. Also talk with your provider if you've ever had a stomach ulcer or gastrointestinal bleeding, or are taking blood-thinner medicines. If you are given phenazopydridine to reduce burning with urination, it will cause your urine to become a bright orange color. This can stain clothing. Care and prevention These self-care steps can help prevent future infections: Drink plenty of fluids to prevent dehydration and flush out your bladder. Do this unless you must restrict fluids for other health reasons, or your doctor told you not to. Proper cleaning after going to the bathroom is important. Wipe from front to back after using the toilet to prevent the spread of bacteria. Urinate more often. Don't try to hold urine in for a long time. Wear loose-fitting clothes and cotton underwear. Avoid tight-fitting pants. Improve your diet and prevent constipation. Eat more fresh fruit and vegetables, and fiber, and less junk and fatty foods. Avoid sex until your symptoms are gone. Avoid caffeine, alcohol, and spicy foods. These can irritate your bladder. Urinate right after intercourse to flush out your bladder. If you use control pills and have frequent bladder infections, discuss it with your doctor. Follow-up care Call your healthcare provider if all symptoms are not gone after 3 days of treatment. This is especially important if you have repeat infections. If a culture was done, you will be told if your treatment needs to be changed. If directed, you cancall to find out the results. If X-rays were done, you will be told if the results will affect your treatment. Call 911 Call 911 if any of the following occur: Trouble breathing Hard to wake up or confusion Fainting or loss of consciousness Rapid heart rate When to seek medical advice Call your healthcare provider right away if any of these occur: Fever of 100.4 F (38.0 C) or higher, or as directed by your healthcare provider Symptoms are not better by the third day of treatment Back or belly (abdominal) pain that gets worse Repeated vomiting, or unable to keep medicine down Weakness or dizziness Vaginal discharge Pain, redness, or swelling in the outer vaginal area (labia) [id number] [employer]. [address] [place] [address]. All rights reserved. This information is not intended as a substitute for professional medical care. Always follow yourhealthcare professional's instructions. Follow Up Care 05/28/2023 20:56:11 With:LARISSA RILEY DO Address: [address] [place] [address] [place] [address] [phone] When:2-4 days Comments:Make an appointment in 2 to 4 days with your physician. Return if you are worse in any way. [facility] 08-25-2023 Note Discharge Instructions Thank you for allowing [facility] to assist you with your healthcare needs. The following is importantdischarge information regarding your hospital visit. Diagnosis from Today's Visit Abdominal pain Abdominal pain Bladder infection Hyperglycemia What to Do Next Instructions from Your Care Team Drink plenty of fluids. Finish your antibiotic. Follow-up with your primary physician in 2 to 3 days. Return if worse anyway. No qualifying data available. Post Acute Orders No qualifying data available. You Need to Schedule the Following Appointments Follow Up with LARISSA RILEY DO When Within 2-4 days Why: Make an appointment in 2 to 4 days with your physician. Return if you are worse in any way. Where: 0 [facility] [place] [address] [phone] Allergies Red Dye (hives) Wheat (Hives) amoxicillin (throat closing) Medications Please ask your primary doctor or pharmacist before taking any other medication not listed, including over the counter drugs, herbal medications, vitamins and or supplements as they may interact withyour home medications. What How Much When Why Instructions Last Dose New nitrofurantoin (Macrobid 100 mg oral capsule) 1 cap by mouth Two (2) times a day Duration: 7 Days Take with food Printed Prescription New phenazopyridine (Pyridium 100 mg oral tablet) 1 tab(s) by mouth Three (3) times a day Duration: 2 Days Printed Prescription Unchanged acetaminophen (acetaminophen 500 mg oral tablet) 2 tab(s) by mouth Three (3) times a day as needed for pain or fever Unchanged DME (Pen needles 8 mm) See instructions Diabetes mellitus, type 2 QID testing for type 2 DM Unchanged famotidine (Pepcid 20 mg oral tablet) 1 tab(s) by mouth Two (2) times a day Unchanged insulin aspart (Novolog) (NovoLOG FlexPen 100 units/ mL injectable solution) 5 unit(s) Subcutaneous Three (3) times a day before meals Diabetes mellitus, type 2 Duration: 90 Days Unchanged insulin glargine (Lantus Solostar Pen 100 units/ mL 3 mL Pen) 25 unit(s) Subcutaneous Daily at bedtime Diabetes mellitus, type 2 Duration: 90 Days dose increased Unchanged levothyroxine (levothyroxine 25 mcg (0.025 mg) oral tablet) 1 tab(s) by mouth Once a day Hypothyroidism Duration: 60 Days Total dose 200mcg Unchanged levothyroxine (Synthroid 175 mcg (0.175 mg) oral tablet) 1 tab(s) by mouth Once a day Hypothyroid Unchanged lisinopril (lisinopril 2.5 mg oral tablet) 1 tab(s) by mouth Once a day Diabetes mellitus, type 2 Duration: 90 Days Unchanged metFORMIN (metFORMIN 500 mg oral tablet) 2 tab(s) by mouth Two (2) times a day Unchanged pravastatin (pravastatin 10 mg oral tablet) 1 tab(s) by mouth Once a day Diabetes mellitus, type 2 Unchanged valACYclovir (Valtrex 1 g oral tablet) 1 tab(s) by mouth Two (2) times a day Please take this list to your next doctor s visit. Bring all medications you take, including over the counter medications, herbals and other supplements with you to your doctor s visit. Patients and families are reminded to discard old lists and to update any records with all medication providers or retail pharmacies. Education [employer] Diabetes with High Blood Sugar You have been treated for high blood sugar (hyperglycemia). This may be because of an infection or other illness. Or it may be from eating too many sweets or starches. Or it may be from not taking enough insulin or other diabetes medicine. Home care Check your blood sugar level at least 2 times a day. Write it down the results. Do this before breakfast and before dinner. If you take insulin, also write down your routine insulin dose. Note any other doses you needed based on your sliding scale or as advised by your healthcare provider. Do this for the next 3 to 5 days. High blood sugar may cause symptoms that you can learn to spot. These include: Peeing often Thirst Headache Breath that smells fruity Nausea or vomiting Belly pain If you have symptoms of high blood sugar, use a blood or urine test to find out what your blood sugar level is. If it is above your usual range, use the sliding scale regular insulin dose from your healthcare provider. Call your provider for advice if you were not given a range for your insulin dose. If your blood sugar is over 240 mg/dL, check your urine for ketones. Follow-up care Follow up with your healthcare provider, or as advised. You may need to meet with your provider in the next week. You will likely look at your blood sugar records together. You may need to change your dose of insulin or other diabetes medicine. When to seek medical advice Call your healthcare provider right away if these occur: Symptoms of high blood sugar that don't get better with the treatment your provider advised. This is especially true if you also have ketones in your urine. Blood sugar over 300 mg/dl. If you can t reach your healthcare provider, go to a hospital emergencyroom or urgent care center. Call 911 Call 911 if you have any of the following: Confusion Dizziness, lightheadedness, or loss of consciousness Shortness of breath Chest pain Weakness of an arm, leg, or one side of the face Sudden trouble with speech or vision 9022-7311 [employer]. [address] [place] [address]. All rights reserved. This information is not intended as a substitute for professional medical care. Always follow yourhealthcare professional's instructions. Abdominal Pain Abdominal pain is pain in the stomach or belly area. Everyone has this pain from time to time. In many cases it goes away on its own. But abdominal pain can sometimes be due to a serious problem, such as appendicitis. So it s important to know when to get help. Causes of abdominal pain There are many possible causes of abdominal pain. Common causes in adults include: Constipation, diarrhea, or gas Stomach acid flowing back up into the esophagus (acid reflux or heartburn) Severe acid reflux, called GERD (gastroesophageal reflux disease) A sore in the lining of the stomach or small intestine (peptic ulcer) Inflammation of the gallbladder, liver, or pancreas Gallstones or kidney stones Appendicitis Intestinal blockage An internal organ pushing through a muscle or other tissue (hernia) Urinary tract infections In women, menstrual cramps, fibroids, ovarian cysts, pelvic inflammatory disease, or endometriosis Inflammation or infection of the intestines, including Crohn's disease and ulcerative colitis Irritable bowel syndrome Diagnosing the cause of abdominal pain Your healthcare provider will give you a physical exam help find the cause of your pain. If needed,you will have tests. Belly pain has many possible causes. So it can be hard to find the reason for your pain. Giving details about your pain can help. Tell your provider where and when you feel the pain, and what makes it better or worse. Also let your provider know if you have other symptoms such as: Fever Tiredness Upset stomach (nausea) Vomiting Changes in bathroom habits Blood in the stool or black, tarry stool Weight loss that you can't explain (involuntary weight loss?) Also report any family history of stomach or intestinal problems, or cancers. Tell your provider about all your alcohol use and drug use. Tell your provider about all medicines you use, including herbs, vitamins, and supplements. Treating abdominal pain Some causes of pain need emergency medical treatment right away. These include appendicitis or a bowel blockage. Other problems can be treated with rest, fluids, or medicines. Your healthcare provider can give you specific instructions for treatment or self-care based on what is causing your pain. If you have vomiting or diarrhea, sip water or other clear fluids. When you are ready to eat solid foods again, start with small amounts of lkbv-jz-uovlly, low- fat foods. These include apple sauce, toast, or crackers. When to get medical care Call 911 or go to the hospital right away if you: Can t pass stool and are vomiting Are vomiting blood or have bloody diarrhea or black, tarry diarrhea Have chest, neck, or shoulder pain Feel like you might pass out Have pain in your shoulder blades with nausea Have sudden, severe belly pain Have new, severe pain unlike any you have felt before Have a belly that is rigid, hard, and hurts to touch Call your healthcare provider if you have: Pain for more than 5 days Bloating for more than 2 days Diarrhea for more than 5 days A fever of 100.4 F (38 C) or higher, or as directed by your healthcare provider Pain that gets worse Weight loss for no reason Continued lack of appetite Blood in your stool How to prevent abdominal pain Here are some tips to help prevent abdominal pain: Eat smaller amounts of food at each meal. Don't eat greasy, fried, or other high-fat foods. Don't eat foods that give you gas. Exercise regularly. Drink plenty of fluids. To help prevent GERD symptoms: Quit smoking. Reduce alcohol and foods that increase stomach acid. Don't use aspirin or vuxh-juw-daeiutf pain and fever medicines, if possible. This includes nonsteroidal anti-inflammatory drugs (NSAIDs). Lose excess weight. Finish eating at least 2 hours before you go to bed or lie down. Raise the head of your bed. 2075-4156 [employer]. [address] [place] [address], [place] [address]. All rights reserved. This information is not intended as a substitute for professional medical care. Always follow yourhealthcare professional's instructions. Bladder Infection, Female (Adult) Urine is normally doesn't have any bacteria in it. But bacteria can get into the urinary tract fromthe skin around the rectum. Or they can travel in the blood from elsewhere in the body. Once they are in your urinary tract, they can cause infection in the urethra (urethritis), the bladder (cystitis), or the kidneys (pyelonephritis). The most common place for an infection is in the bladder. This is called a bladder infection. This is one of the most common infections in women. Most bladder infections are easily treated. They are not serious unless the infection spreads to the kidney. The phrases bladder infection, UTI, and cystitis are often used to describe the same thing. But they are not always the same. Cystitis is an inflammation of the bladder. The most common cause of cystitis is an infection. Symptoms The infection causes inflammation in the urethra and bladder. This causes many of the symptoms. Themost common symptoms of a bladder infection are: Pain or burning when urinating Having to urinate more often than usual Urgent need to urinate Only a small amount of urine comes out Blood in urine Abdominal discomfort. This is usually in the lower abdomen above the pubic bone. Cloudy urine Strong- or bad-smelling urine Unable to urinate (urinary retention) Unable to hold urine in (urinary incontinence) Fever Loss of appetite Confusion (in older adults) Causes Bladder infections are not contagious. You can't get one from someone else, from a toilet seat, or from sharing a bath. The most common cause of bladder infections is bacteria from the bowels. The bacteria get onto the skin around the opening of the urethra. From there, they can get into the urine and travel up to thebladder, causing inflammation and infection. This usually happens because of: Wiping improperly after urinating. Always wipe from front to back. Bowel incontinence Procedures such as having a catheter inserted Older age Not emptying your bladder. This can allow bacteria a chance to grow in your urine. Dehydration Constipation Sex Use of a diaphragm for control Treatment Bladder infections are diagnosed by a urine test. They are treated with antibiotics and usually clear up quickly without complications. Treatment helps prevent a more serious kidney infection. Medicines Medicines can help in the treatment of a bladder infection: Take antibiotics until they are used up, even if you feel better. It is important to finish them tomake sure the infection has cleared. You can use acetaminophen or ibuprofen for pain, fever, or discomfort, unless another medicine was prescribed. If you have chronic liver or kidney disease, talk with your healthcare provider before using these medicines. Also talk with your provider if you've ever had a stomach ulcer or gastrointestinal bleeding, or are taking blood-thinner medicines. If you are given phenazopydridine to reduce burning with urination, it will cause your urine to become a bright orange color. This can stain clothing. Care and prevention These self-care steps can help prevent future infections: Drink plenty of fluids to prevent dehydration and flush out your bladder. Do this unless you must restrict fluids for other health reasons, or your doctor told you not to. Proper cleaning after going to the bathroom is important. Wipe from front to back after using the toilet to prevent the spread of bacteria. Urinate more often. Don't try to hold urine in for a long time. Wear loose-fitting clothes and cotton underwear. Avoid tight-fitting pants. Improve your diet and prevent constipation. Eat more fresh fruit and vegetables, and fiber, and less junk and fatty foods. Avoid sex until your symptoms are gone. Avoid caffeine, alcohol, and spicy foods. These can irritate your bladder. Urinate right after intercourse to flush out your bladder. If you use control pills and have frequent bladder infections, discuss it with your doctor. Follow-up care Call your healthcare provider if all symptoms are not gone after 3 days of treatment. This is especially important if you have repeat infections. If a culture was done, you will be told if your treatment needs to be changed. If directed, you cancall to find out the results. If X-rays were done, you will be told if the results will affect your treatment. Call 911 Call 911 if any of the following occur: Trouble breathing Hard to wake up or confusion Fainting or loss of consciousness Rapid heart rate When to seek medical advice Call your healthcare provider right away if any of these occur: Fever of 100.4 F (38.0 C) or higher, or as directed by your healthcare provider Symptoms are not better by the third day of treatment Back or belly (abdominal) pain that gets worse Repeated vomiting, or unable to keep medicine down Weakness or dizziness Vaginal discharge Pain, redness, or swelling in the outer vaginal area (labia) 7211-5307 [employer]. [address] [place] [address], [place] [address]. All rights reserved. This information is not intended as a substitute for professional medical care. Always follow yourhealthcare professional's instructions. Additional Information VACCINATE! IT SAVES LIVES! Members of the community who have not yet received the COVID-19 vaccine and would like to receive it can visit one of [facility] vaccine clinics. There are many vaccine clinic locations within the [facility]. For locations and available times, please visit [email or web address].[email or web address]/. It is important to note that some COVID mobile vaccine clinics are held outdoors and may be canceled in rainy or stormy conditions. To learn more about pediatric vaccinations (ages 5-11), we invite you to visit the [facility] webpage. [email or web address] learn more about the COVID-19 vaccine, we invite you to visit the CDC website for a list of frequently asked questions. https://www.cdc.gov/coronavirus/2019-ncov/vaccines/faq.html [facility] Patient Portal Access Instructions: Stay connected with your healthcare team and access your personal medical information anytime with the [facility] Patient Portal. If you would like a full copy of your medical records please contact the [facility] Medical Records Department Thursday through Thursday between 8a.m. and 4:30p.m. Please follow the directions below to access the portal: 1.Access the email account you provided upon registration to the hospital.2.Look for an invitation email from [facility].3.Open the email and access the invitation link: Accept Invitation to [facility]4.Fill in the required boyd to create your account. Sign into www.[email or web address] with your username and password that you created in the above steps to stay up to date. You can then view a summary of results, a summary of your visits, and the ability to download your summaries to your computer or send the information securely to a physician. Remember that your healthcare information is confidential, so carefully consider who you will allow to register on the [facility] Patient Portal for access to your information. You can also access the [facility] Patient Portal on the [employer]. Simply click on Health Records under [employer] and then click on the [facility] logo. HOW TO SAFELY DISPOSE OF PRESCRIPTION MEDICATIONS Please use one of the following methods to safely dispose of your unused medications. 1.Use a drug disposal kit: the drug disposal pouch allows you to safely discard your old and unuseddrugs. Ask your nurse to give you one when you are discharged.2.Visit a local take-back location: Many local pharmacies and police departments have programs that collect old and unwanted prescriptiondrugs. Call your local pharmacy or go to [email or web address] to find one close to you.3.Make use of household items: Use cat litter or old coffee grounds to dispose medications if other options arenot available. Mix your drugs with these household products, seal them in an airtight container andthrow it into the garbage. Call [facility]: [phone] to be sure your drugs can be disposed of in this way. Some medicines may require a different approach.4.Never flush your medications down the toilet. IF YOU HAVE BEEN PRESCRIBED AN OPIOIDS FOR PAIN If you have been prescribed an opioid (such as hydrocodone, oxycodone or morphine), it is critical to understand the possible side effects and risks of opioid pain medications. Even when taken as directed, opioids can have several side effects including: Tolerance, meaning you might need to take more of a medication for the same pain relief. Nausea, vomiting and/or constipation. Sleepiness, dizziness, dry mouth, confusion, depression or itching. Physical dependence, meaning you have withdrawal symptoms when a medication is stopped ? this can develop within a few days. KNOW YOUR RESPONSIBILITIES It is important to know exactly how much and how often to take the opioid pain medications you are prescribed. Never take opioids in higher amounts or more often than prescribed. Do not combine opioids with alcohol or other drugs that cause drowsiness, such as benzodiazepines, also known as benzos,including diazepam and alprazolam, muscle relaxants or sleep aids. Never sell or share prescriptionopioids. This is illegal. Store opioids in a secure place and out of reach of others (including children, family, friends and visitors). The last page(s) of this document has been signed and retained as a CHART COPY Signatures Patient Education Materials Diabetes with High Blood Sugar Abdominal Pain Bladder Infection, Female (Adult) Medication Leaflets My discharge plan and instructions have been reviewed and explained to me and I,ROSA CERVANTES understand my current condition and have read and understand these discharge instructions. I have received a written copy of the plan/instructions. If I have questions, I am aware that I should contact my doctor. 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 Multiplanar reformatted images are provided for review. Automated exposure control, iterative reconstruction, and/or weight based adjustment of the mA/kV was utilized to reduce the radiation dose to as low as reasonably achievable. COMPARISON: February 24, 2023 HISTORY: ORDERING SYSTEM PROVIDED HISTORY: Reason for Exam: pt arrived to the ED with c/o abd pain with nausea x2 weeks. pain FINDINGS: Lower Chest: Normal heart size. No focal consolidation or pleural effusion. Organs: The liver appears normal. The patient is status post cholecystectomy. The spleen appears enlarged, slightly increased from the prior study now measuring up to 15.5 cm craniocaudad.. The pancreas appears normal. The adrenal glands appear normal. The kidneys enhance symmetrically with no evidence of nephrolithiasis or hydronephrosis. GI/Bowel: There is no evidence of obstruction. The appendix is normal. Pelvis: Mild wall thickening and mucosal enhancement is noted in the bladder, suspicious for cystitis. 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 Peritoneum/Retroperitoneum: There is no intraperitoneal free air or ascites. The aorta and its major branches appear normal. No lymphadenopathy is identified. Bones/Soft Tissues: No focal bone or soft tissue abnormality is seen. IMPRESSION: 1. Bladder wall thickening and mucosal enhancement suspicious for cystitis. Please correlate with urinalysis. 2. Splenomegaly is again seen with the spleen measuring up to 14.5 cm craniocaudad. Interpreted by: Robe Ramey Preliminary Report By: Robe Ramey Electronically signed By Robe Ramey Dictated Date: 05/29/2023 12:57:47 AM Prelim Date: 05/29/2023 1:03:07 AM Sign Date: 05/29/2023 1:03:07 AM Ordering Provider: ROBERTA [facility]08-02-2023 History of Present illness Narrative* Brijesh Navarro APRN.HEREDITARY CANCER PROGRAM COORDINATOR - 05/06/2023 12:45 PM EDT Images from the original note were not included. Subjective HPI HPI Rosa Cervantes is a 27 year old female who presents today for CC of itchy rash. This started 1 week ago. Has tried otc medication for relief. Symptoms are worsened by nothing. Risk factors hx of this happening in this spot in past. Denies fever. .Patient presents with: Derm Problem: On left neck and between breasts x 1 wk PAST MEDICAL HISTORY Diagnosis Date Abnormal Pap smear of cervix Anemia Asthma has not used an inhaler since age 18 Complication of anesthesia has issues with breathing after being woken-uses Albuterol Depression Genital herpes Gestational diabetes Hypothyroid PCOS (polycystic ovarian syndrome) PAST SURGICAL HISTORY Procedure Laterality Date CHOLECYSTECTOMY MYRINGOTOMY x4 TONSILLECTOMY AND ADENOIDECTOMY HX ALLERGIES Amoxicillin, Mold, Red Dye, and Wheat MEDICATIONS levothyroxine (LEVOXYL) 25 mcg tablet Take 1 tablet by mouth once daily. Take on empty stomach. ForThyroid levothyroxine (LEVOXYL) 175 mcg tablet Take 1 tablet by mouth once daily. Take on empty stomach. For thyroid. famotidine (PEPCID) 20 mg tablet Take 20 mg by mouth twice daily. ondansetron orally disintegrating (ZOFRAN ODT) 4 mg disintegrating tablet dissolve 1 tablet by mouth every 6 hours acyclovir (ZOVIRAX) 400 mg tablet Take 1 tablet by mouth every 12 hours. norgestimate 0.25 mg-ethinyl estradiol 35 mcg (SPRINTEC) 0.25-35 mg-mcg per tablet Take 1 tablet bymouth once daily. levothyroxine (SYNTHROID) 175 mcg tablet Take 1 tablet by mouth daily before breakfast. metFORMIN (GLUCOPHAGE) 500 mg tablet Take 1 tablet by mouth twice daily with meals. sertraline (ZOLOFT) 100 mg tablet Take 1 tablet by mouth once daily. methylPREDNISolone (MEDROL, JACQUI,) 4 mg Dose-Pack Follow dosing instructions, take with food. triamcinolone acetonide (KENALOG) 0.1 % cream Apply 1 application to affected area three times daily for 10 days. Apply sparingly to area for rash/itching. L. acidophilus-L. rhamnosus 15 billion cell cap Take 1 capsule by mouth once daily. FLORAJEN WOMEN.If on antibiotic, take at least 1-2 hours before or after antibiotic. KEEP REFRIGERATED (Patient not taking: Reported on 03/13/2023) miconazole (MONISTAT 7) 2 % vaginal cream Use 1 Applicator vaginally daily at bedtime. (Patient nottaking: Reported on 03/13/2023) FAMILY HISTORY Problem Relation Age of Onset Asthma Mother Thyroid Mother other (PCOS) Mother Diabetes Father Hypertension Father Thyroid Sister Allergies Sister other (PCOS) Sister Heart Attack Maternal Grandmother Diabetes Maternal Grandfather Heart Maternal Grandfather Cancer Paternal Grandmother Heart Paternal Grandfather Social History Tobacco Use Smoking status: Former Types: Cigarettes Quit date: 10/22/2018 Years since quittin.5 Smokeless tobacco: Never Vaping Use Vaping Use: Never used Substance Use Topics Alcohol use: Not Currently Drug use: Not Currently Types: Marijuana ROS Objective Blood pressure 110/74, pulse 98, temperature 37.2 C (98.9 F), resp. rate 16, weight 106 kg (233 lb9.6 oz), last menstrual period 03/10/2023, SpO2 98 %. Physical Exam Constitutional: General: She is not in acute distress. Appearance: She is not toxic-appearing or diaphoretic. HENT: Head: Normocephalic and atraumatic. Pulmonary: Effort: Pulmonary effort is normal. No accessory muscle usage or respiratory distress. Skin: Neurological: Mental Status: She is alert and oriented to person, place, and time. ASSESSMENT/PLAN: 1. Rash - ICD9: 782.1, ICD10: R21 Possibly eczematic, reoccurring -use medication as prescribed -follow up if symptoms persist, worsen, change - METHYLPREDNISOLONE 4 MG TABLETS IN A DOSE PACK - TRIAMCINOLONE ACETONIDE 0.1 % TOPICAL CREAM Brijesh Navarro APRN.HEREDITARY CANCER PROGRAM COORDINATOR [facility] Inst[facility]* Patient Instructions* Brijesh Navarro APRN.CNP - 03/31/2023 2:45 PM EDT ASSESSMENT/PLAN: 1. Infection of lip - ICD9: 528.5, ICD10: K13.0 -use medication as prescribed -follow up if symptoms persist Urgent f/u for worsening symptoms. - DOXYCYCLINE MONOHYDRATE 100 MG CAPSULE - MUPIROCIN 2 % TOPICAL OINTMENT [facility] History of Present illness Narrative* Brijesh Navarro APRN.CNP - 03/31/2023 2:41 PM EDT Images from the original note were not included. Subjective HPI HPI Rosa Cervantes is a 27 year old female who presents today for CC of infection of upper lip, fell and bit lip. This started 2 days ago. Has tried otc atb ointment. Symptoms are worsened by nothing. Risk factors patient diabetic. Patient not known to [facility], denies renal/hepatic disease. Denies possibility of being . .Patient presents with: infected upper lip: X 2 days PAST MEDICAL HISTORY Diagnosis Date Abnormal Pap smear of cervix Anemia Asthma has not used an inhaler since age 18 Complication of anesthesia has issues with breathing after being woken-uses Albuterol Depression Genital herpes Gestational diabetes Hypothyroid PCOS (polycystic ovarian syndrome) PAST SURGICAL HISTORY Procedure Laterality Date CHOLECYSTECTOMY MYRINGOTOMY x4 TONSILLECTOMY AND ADENOIDECTOMY HX ALLERGIES Amoxicillin, Mold, Red Dye, and Wheat MEDICATIONS acyclovir (ZOVIRAX) 800 mg tablet Take 1 tablet by mouth twice daily for 5 days. levothyroxine (LEVOXYL) 25 mcg tablet Take 1 tablet by mouth once daily. Take on empty stomach. ForThyroid famotidine (PEPCID) 20 mg tablet Take 20 mg by mouth twice daily. ondansetron orally disintegrating (ZOFRAN ODT) 4 mg disintegrating tablet dissolve 1 tablet by mouth every 6 hours acyclovir (ZOVIRAX) 400 mg tablet Take 1 tablet by mouth every 12 hours. norgestimate 0.25 mg-ethinyl estradiol 35 mcg (SPRINTEC) 0.25-35 mg-mcg per tablet Take 1 tablet bymouth once daily. levothyroxine (SYNTHROID) 175 mcg tablet Take 1 tablet by mouth daily before breakfast. metFORMIN (GLUCOPHAGE) 500 mg tablet Take 1 tablet by mouth twice daily with meals. sertraline (ZOLOFT) 100 mg tablet Take 1 tablet by mouth once daily. doxycycline monohydrate (MONODOX) 100 mg capsule Take 1 capsule by mouth twice daily for 7 days. mupirocin (BACTROBAN) 2 % ointment Apply to affected area three times daily for 10 days. levothyroxine (LEVOXYL) 175 mcg tablet Take 1 tablet by mouth once daily. Take on empty stomach. For thyroid. L. acidophilus-L. rhamnosus 15 billion cell cap Take 1 capsule by mouth once daily. FLORAJEN WOMEN.If on antibiotic, take at least 1-2 hours before or after antibiotic. KEEP REFRIGERATED (Patient not taking: Reported on 03/13/2023) miconazole (MONISTAT 7) 2 % vaginal cream Use 1 Applicator vaginally daily at bedtime. (Patient nottaking: Reported on 03/13/2023) FAMILY HISTORY Problem Relation Age of Onset Asthma Mother Thyroid Mother other (PCOS) Mother Diabetes Father Hypertension Father Thyroid Sister Allergies Sister other (PCOS) Sister Heart Attack Maternal Grandmother Diabetes Maternal Grandfather Heart Maternal Grandfather Cancer Paternal Grandmother Heart Paternal Grandfather Social History Tobacco Use Smoking status: Former Types: Cigarettes Quit date: 10/22/2018 Years since quittin.4 Smokeless tobacco: Never Vaping Use Vaping Use: Never used Substance Use Topics Alcohol use: Not Currently Drug use: Not Currently Types: Marijuana Review of Systems Constitutional: Negative for fever. Objective Blood pressure 102/68, pulse 90, temperature 36.7 C (98.1 F), temperature source Tympanic, resp. rate 16, weight 105.7 kg (233 lb), last menstrual period 03/10/2023, SpO2 98 %. Physical Exam Constitutional: General: She is not in acute distress. Appearance: She is not toxic-appearing or diaphoretic. HENT: Head: Normocephalic and atraumatic. Pulmonary: Effort: Pulmonary effort is normal. No accessory muscle usage or respiratory distress. Neurological: Mental Status: She is alert and oriented to person, place, and time. ASSESSMENT/PLAN: 1. Infection of lip - ICD9: 528.5, ICD10: K13.0 -use medication as prescribed -follow up if symptoms persist Urgent f/u for worsening symptoms. - DOXYCYCLINE MONOHYDRATE 100 MG CAPSULE - MUPIROCIN 2 % TOPICAL OINTMENT Brijesh Navarro APRN.HEREDITARY CANCER PROGRAM COORDINATOR documented [facility] History of Present illness Narrative* Ceci Motley PA-C - 03/27/2023 3:51 PM EDT This note was created using Fractureriter. Subjective Rosa Cervantes is a 27 year old female. HPI Presents with a chief complaint of a herpes outbreak. Yesterday she noted blisters on the vulvar area. She had an outbreak in November as well and was seen here. She typically takes acyclovir. Patient also would like her levothyroxine refilled as she is out of it. She states she takes a 175 mcg renuka 25 mcg tablet. She also has been having leg swelling off and on over the past 2 months. She has been seen in the ER for this before and was told to follow-up with PCP. She was going to establish with a new one in March but missed her appointment so they would not see her when she called back. She also has a history of diabetes hypertension, high cholesterol. Denies chest pain or shortness of breath. She states she stands for 9 hours a day which seems to make the swelling worse. It is better when she has her feet up. Review of Systems All other systems reviewed and are negative. PAST MEDICAL HISTORY Diagnosis Date Abnormal Pap smear of cervix Anemia Asthma has not used an inhaler since age 18 Complication of anesthesia has issues with breathing after being woken-uses Albuterol Depression Genital herpes Gestational diabetes Hypothyroid PCOS (polycystic ovarian syndrome) Current Outpatient Medications Medication Sig Dispense Refill famotidine (PEPCID) 20 mg tablet Take 20 mg by mouth twice daily. ondansetron orally disintegrating (ZOFRAN ODT) 4 mg disintegrating tablet dissolve 1 tablet by mouth every 6 hours norgestimate 0.25 mg-ethinyl estradiol 35 mcg (SPRINTEC) 0.25-35 mg-mcg per tablet Take 1 tablet bymouth once daily. 1 Package 12 levothyroxine (SYNTHROID) 175 mcg tablet Take 1 tablet by mouth daily before breakfast. 10 tablet 0 metFORMIN (GLUCOPHAGE) 500 mg tablet Take 1 tablet by mouth twice daily with meals. 60 tablet 1 sertraline (ZOLOFT) 100 mg tablet Take 1 tablet by mouth once daily. 30 tablet 1 acyclovir (ZOVIRAX) 800 mg tablet Take 1 tablet by mouth twice daily for 5 days. 10 tablet 0 levothyroxine (LEVOXYL) 25 mcg tablet Take 1 tablet by mouth once daily. Take on empty stomach. ForThyroid 30 tablet 0 levothyroxine (LEVOXYL) 175 mcg tablet Take 1 tablet by mouth once daily. Take on empty stomach. For thyroid. 30 tablet 0 acyclovir (ZOVIRAX) 400 mg tablet Take 1 tablet by mouth every 12 hours. 60 tablet 0 L. acidophilus-L. rhamnosus 15 billion cell cap Take 1 capsule by mouth once daily. FLORAJEN WOMEN.If on antibiotic, take at least 1-2 hours before or after antibiotic. KEEP REFRIGERATED (Patient not taking: Reported on 03/13/2023) 30 capsule 11 miconazole (MONISTAT 7) 2 % vaginal cream Use 1 Applicator vaginally daily at bedtime. (Patient nottaking: Reported on 03/13/2023) 45 g 0 No current facility-administered medications for this visit. PAST SURGICAL HISTORY Procedure Laterality Date CHOLECYSTECTOMY MYRINGOTOMY x4 TONSILLECTOMY AND ADENOIDECTOMY HX FAMILY HISTORY Problem Relation Age of Onset Asthma Mother Thyroid Mother other (PCOS) Mother Diabetes Father Hypertension Father Thyroid Sister Allergies Sister other (PCOS) Sister Heart Attack Maternal Grandmother Diabetes Maternal Grandfather Heart Maternal Grandfather Cancer Paternal Grandmother Heart Paternal Grandfather Social History Tobacco Use Smoking status: Former Types: Cigarettes Quit date: 10/22/2018 Years since quittin.4 Smokeless tobacco: Never Vaping Use Vaping Use: Never used Substance Use Topics Alcohol use: Not Currently Drug use: Not Currently Types: Marijuana Objective BP 110/78 Pulse 91 Temp 36.8 C (98.2 F) (Tympanic) Resp 16 Wt 106.3 kg (234 lb 6.4 oz) LMP 03/10/2023 (Exact Date) SpO2 98% BMI 41.52 kg/m Physical Exam Vitals reviewed. Constitutional: Appearance: Normal appearance. HENT: Head: Normocephalic and atraumatic. Cardiovascular: Rate and Rhythm: Normal rate and regular rhythm. Heart sounds: Normal heart sounds. Pulmonary: Effort: Pulmonary effort is normal. Breath sounds: Normal breath sounds. Genitourinary: Comments: deferred Musculoskeletal: Comments: Minimal bilateral peripheral edema, non pitting. No erythema Skin: General: Skin is warm and dry. Neurological: Mental Status: She is alert. Assessment and Plan ASSESSMENT/PLAN: 1. Recurrent genital herpes - ICD9: 054.10, ICD10: A60.00 (primary diagnosis) Acyclovir prescription given. 2. Hypothyroidism, acquired - ICD9: 244.9, ICD10: E03.9 Refilled levothyroxine 3. Peripheral edema - ICD9: 782.3, ICD10: R60.9 Discussed decreasing salt intake. Elevating legs. Compression stockings. Follow- up with PCP, I did get her scheduled with Derrick Sexton. Ceci Motley PA-C documented in this encounter[facility] Hospital Discharge instructions Patient Education 03/21/2023 21:19:58 Diabetes with High Blood Sugar Diabetes with High Blood Sugar You have been treated for high blood sugar (hyperglycemia). This may be because of an infection or other illness. Or it may be from eating too many sweets or starches. Or it may be from not taking enough insulin or other diabetes medicine. Home care Check your blood sugar level at least 2 times a day. Write it down the results. Do this before breakfast and before dinner. If you take insulin, also write down your routine insulin dose. Note any other doses you needed based on your sliding scale or as advised by your healthcare provider. Do this for the next 3 to 5 days. High blood sugar may cause symptoms that you can learn to spot. These include: Peeing often Thirst Headache Breath that smells fruity Nausea or vomiting Belly pain If you have symptoms of high blood sugar, use a blood or urine test to find out what your blood sugar level is. If it is above your usual range, use the sliding scale regular insulin dose from your healthcare provider. Call your provider for advice if you were not given a range for your insulin dose. If your blood sugar is over 240 mg/dL, check your urine for ketones. Follow-up care Follow up with your healthcare provider, or as advised. You may need to meet with your provider in the next week. You will likely look at your blood sugar records together. You may need to change your dose of insulin or other diabetes medicine. When to seek medical advice Call your healthcare provider right away if these occur: Symptoms of high blood sugar that don't get better with the treatment your provider advised. This is especially true if you also have ketones in your urine. Blood sugar over 300 mg/dl. If you can t reach your healthcare provider, go to a hospital emergencyroom or urgent care center. Call 911 Call 911 if you have any of the following: Confusion Dizziness, lightheadedness, or loss of consciousness Shortness of breath Chest pain Weakness of an arm, leg, or one side of the face Sudden trouble with speech or vision [phone] [employer]. [address] [place] [address]. All rights reserved. This information is not intended as a substitute for professional medical care. Always follow yourhealthcare professional's instructions. Follow Up Care 03/21/2023 19:44:39 With:Call Physician Referral Address:Unknown When:2-4 days [facility] 06-17-2023 Note Discharge Instructions Thank you for allowing [facility] to assist you with your healthcare needs. The following is importantdischarge information regarding your hospital visit. Diagnosis from Today's Visit Hyperglycemia Increased blood sugar What to Do Next Instructions from Your Care Team No qualifying data available. Post Acute Orders No qualifying data available. You Need to Schedule the Following Appointments Follow Up with Call Physician Referral When Within 2-4 days Allergies Red Dye (hives) Wheat (Hives) amoxicillin (throat closing) Medications Please ask your primary doctor or pharmacist before taking any other medication not listed, including over the counter drugs, herbal medications, vitamins and or supplements as they may interact withyour home medications. Please take this list to your next doctor s visit. Bring all medications you take, including over the counter medications, herbals and other supplements with you to your doctor s visit. Patients and families are reminded to discard old lists and to update any records with all medication providers or retail pharmacies. Education Materials Diabetes with High Blood Sugar You have been treated for high blood sugar (hyperglycemia). This may be because of an infection or other illness. Or it may be from eating too many sweets or starches. Or it may be from not taking enough insulin or other diabetes medicine. Home care Check your blood sugar level at least 2 times a day. Write it down the results. Do this before breakfast and before dinner. If you take insulin, also write down your routine insulin dose. Note any other doses you needed based on your sliding scale or as advised by your healthcare provider. Do this for the next 3 to 5 days. High blood sugar may cause symptoms that you can learn to spot. These include: Peeing often Thirst Headache Breath that smells fruity Nausea or vomiting Belly pain If you have symptoms of high blood sugar, use a blood or urine test to find out what your blood sugar level is. If it is above your usual range, use the sliding scale regular insulin dose from your healthcare provider. Call your provider for advice if you were not given a range for your insulin dose. If your blood sugar is over 240 mg/dL, check your urine for ketones. Follow-up care Follow up with your healthcare provider, or as advised. You may need to meet with your provider in the next week. You will likely look at your blood sugar records together. You may need to change your dose of insulin or other diabetes medicine. When to seek medical advice Call your healthcare provider right away if these occur: Symptoms of high blood sugar that don't get better with the treatment your provider advised. This is especially true if you also have ketones in your urine. Blood sugar over 300 mg/dl. If you can t reach your healthcare provider, go to a hospital emergencyroom or urgent care center. Call 911 Call 911 if you have any of the following: Confusion Dizziness, lightheadedness, or loss of consciousness Shortness of breath Chest pain Weakness of an arm, leg, or one side of the face Sudden trouble with speech or vision [phone] [employer]. [address] [place] [address], BALJEET Garcia [address]. All rights reserved. This information is not intended as a substitute for professional medical care. Always follow yourhealthcare professional's instructions. Additional Information VACCINATE! IT SAVES LIVES! Members of the community who have not yet received the COVID-19 vaccine and would like to receive it can visit one of [facility] vaccine clinics. There are many vaccine clinic locations within the [facility]. For locations and available times, please visit [email or web address]/. It is important to note that some COVID mobile vaccine clinics are held outdoors and may be canceled in rainy or stormy conditions. To learn more about pediatric vaccinations (ages 5-11), we invite you to visit the [facility] webpage. [email or web address] learn more about the COVID-19 vaccine, we invite you to visit the CDC website for a list of frequently asked questions. https://www.cdc.gov/coronavirus/2019-ncov/vaccines/faq.html [facility] Patient Portal Access Instructions: Stay connected with your healthcare team and access your personal medical information anytime with the [facility] Patient Portal. If you would like a full copy of your medical records please contact the [facility] Medical Records Department Thursday through Thursday between 8a.m. and 4:30p.m. Please follow the directions below to access the portal: 1.Access the email account you provided upon registration to the surgical specialty center at [facility].2.Look for an invitation email from [facility].3.Open the email and access the invitation link: Accept Invitation to [facility]4.Fill in the required boyd to create your account. Sign into [email or web address] with your username and password that you created in the above steps to stay up to date. You can then view a summary of results, a summary of your visits, and the ability to download your summaries to your computer or send the information securely to a physician. Remember that your healthcare information is confidential, so carefully consider who you will allow to register on the [facility] Patient Portal for access to your information. You can also access the [facility] Patient Portal on the [employer]. Simply click on Health Records under [employer] and then click on the [employer] logo. HOW TO SAFELY DISPOSE OF PRESCRIPTION MEDICATIONS Please use one of the following methods to safely dispose of your unused medications. 1.Use a drug disposal kit: the drug disposal pouch allows you to safely discard your old and unuseddrugs. Ask your nurse to give you one when you are discharged.2.Visit a local take-back location: Many local pharmacies and police departments have programs that collect old and unwanted prescriptiondrugs. Call your local pharmacy or go to [email or web address] to find one close to you.3.Make use of household items: Use cat litter or old coffee grounds to dispose medications if other options arenot available. Mix your drugs with these household products, seal them in an airtight container andthrow it into the garbage. Call [facility]: [phone] to be sure your drugs can be disposed of in this way. Some medicines may require a different approach.4.Never flush your medications down the toilet. IF YOU HAVE BEEN PRESCRIBED AN OPIOIDS FOR PAIN If you have been prescribed an opioid (such as hydrocodone, oxycodone or morphine), it is critical to understand the possible side effects and risks of opioid pain medications. Even when taken as directed, opioids can have several side effects including: Tolerance, meaning you might need to take more of a medication for the same pain relief. Nausea, vomiting and/or constipation. Sleepiness, dizziness, dry mouth, confusion, depression or itching. Physical dependence, meaning you have withdrawal symptoms when a medication is stopped ? this can develop within a few days. KNOW YOUR RESPONSIBILITIES It is important to know exactly how much and how often to take the opioid pain medications you are prescribed. Never take opioids in higher amounts or more often than prescribed. Do not combine opioids with alcohol or other drugs that cause drowsiness, such as benzodiazepines, also known as benzos,including diazepam and alprazolam, muscle relaxants or sleep aids. Never sell or share prescriptionopioids. This is illegal. Store opioids in a secure place and out of reach of others (including children, family, friends and visitors). The last page(s) of this document has been signed and retained as a CHART COPY Signatures Patient Education Materials Diabetes with High Blood Sugar Medication Leaflets My discharge plan and instructions have been reviewed and explained to me and I,ROSA CERVANTES understand my current condition and have read and understand these discharge instructions. I have received a written copy of the plan/instructions. If I have questions, I am aware that I should contact my doctor. 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 Subjective Rosa Cervantes is a 27 year old female. HPI 27-year-old female presents for low back pain. Patient states she has been having left-sided low back pain for about a week. She was seen at the ER on 02/24 for similar pain that was going into her abdomen and diagnosed with gas pain. She was given Pepcid and Zofran. States she has not really had much relief. She has no abdominal pain. No vomiting or diarrhea. No fevers. No hematuria or dysuria. She is concerned she may have a UTI with the back pain, so wanted this to be evaluated. Pain is worse with movement. Denies any fall or injury. No blood in the urine. No history of kidney stones. She does not have a PCP, but does have an automatic quilling machine operator she follows with. She denies any fevers, bow el/bladder incontinence, numbness or weakness in the extremities. Patient states she has been doingsome fogginess in her brain for the past few months. She has not seen her diabetic doctor for about a year. She does not have a PCP. She is unable to check her sugars at home. She is on metformin NovoLog and Lantus. PAST MEDICAL HISTORY Diagnosis Date Abnormal Pap smear of cervix Anemia Asthma has not used an inhaler since age 18 Complication of anesthesia has issues with breathing after being woken-uses Albuterol Depression Genital herpes Gestational diabetes Hypothyroid PCOS (polycystic ovarian syndrome) PAST SURGICAL HISTORY Procedure Laterality Date CHOLECYSTECTOMY MYRINGOTOMY x4 TONSILLECTOMY AND ADENOIDECTOMY HX ALLERGIES Amoxicillin, Mold, Red Dye, and Wheat MEDICATIONS famotidine (PEPCID) 20 mg tablet Take 20 mg by mouth twice daily. ondansetron orally disintegrating (ZOFRAN ODT) 4 mg disintegrating tablet dissolve 1 tablet by mouth every 6 hours acyclovir (ZOVIRAX) 400 mg tablet Take 1 tablet by mouth every 12 hours. norgestimate 0.25 mg-ethinyl estradiol 35 mcg (SPRINTEC) 0.25-35 mg-mcg per tablet Take 1 tablet bymouth once daily. levothyroxine (SYNTHROID) 175 mcg tablet Take 1 tablet by mouth daily before breakfast. metFORMIN (GLUCOPHAGE) 500 mg tablet Take 1 tablet by mouth twice daily with meals. sertraline (ZOLOFT) 100 mg tablet Take 1 tablet by mouth once daily. L. acidophilus-L. rhamnosus 15 billion cell cap Take 1 capsule by mouth once daily. FLORAJEN WOMEN.If on antibiotic, take at least 1-2 hours before or after antibiotic. KEEP REFRIGERATED (Patient not taking: Reported on 03/13/2023) miconazole (MONISTAT 7) 2 % vaginal cream Use 1 Applicator vaginally daily at bedtime. (Patient nottaking: Reported on 03/13/2023) FAMILY HISTORY Problem Relation Age of Onset Asthma Mother Thyroid Mother other (PCOS) Mother Diabetes Father Hypertension Father Thyroid Sister Allergies Sister other (PCOS) Sister Heart Attack Maternal Grandmother Diabetes Maternal Grandfather Heart Maternal Grandfather Cancer Paternal Grandmother Heart Paternal Grandfather Social History Tobacco Use Smoking status: Former Types: Cigarettes Quit date: 10/22/2018 Years since quittin.3 Smokeless tobacco: Never Vaping Use Vaping Use: Never used Substance Use Topics Alcohol use: Not Currently Drug use: Not Currently Types: Marijuana Review of Systems Constitutional: Negative for chills and fever. HENT: Negative for congestion, ear pain and sore throat. Respiratory: Negative for cough and shortness of breath. Cardiovascular: Negative for chest pain. Gastrointestinal: Positive for abdominal pain. Negative for diarrhea and vomiting. Genitourinary: Negative for frequency, hematuria and urgency. Musculoskeletal: Positive for back pain. Objective BP 110/70 Pulse 104 Temp 37.1 C (98.8 F) Resp 18 Wt 106.1 kg (234 lb) LMP 03/10/2023 (Exact Date) SpO2 98% BMI 41.45 kg/m Physical Exam Vitals and nursing note reviewed. Constitutional: General: She is not in acute distress. Appearance: Normal appearance. She is not toxic-appearing. HENT: Nose: Nose normal. Mouth/Throat: Pharynx: No oropharyngeal exudate or posterior oropharyngeal erythema. Eyes: Conjunctiva/sclera: Conjunctivae normal. Cardiovascular: Rate and Rhythm: Normal rate and regular rhythm. Pulmonary: Effort: Pulmonary effort is normal. Breath sounds: Normal breath sounds. Abdominal: General: Abdomen is flat. Tenderness: There is no abdominal tenderness. There is no right CVA tenderness or left CVA tenderness. Musculoskeletal: Lumbar back: Tenderness present. No bony tenderness. Negative right straight leg raise test and negative left straight leg raise test. Comments: Left-sided lumbar paraspinal muscle tenderness. Neurological: Mental Status: She is alert. Assessment and Plan ASSESSMENT/PLAN: 1. Acute midline low back pain without sciatica - ICD9: 724.2, ICD10: M54.50 (primary diagnosis) - UA DIP, URINE (POC)-reveals greater than 1000 glucose, trace ketones, protein. No nitrates or leuk esterase. Urine culture pending. 2. Glucosuria - ICD9: 791.5, ICD10: R81 - GLUCOSE, BLOOD (POC)- 471 3. Hyperglycemia - ICD9: 790.29, ICD10: R73.9 -Patient is on metformin, NovoLog and Lantus. She has been taking her insulin as prescribed. She isunable to check her blood sugar at home because she does not have a working machine. She last saw her automatic quilling machine operator 1 year ago. Glucose 471 here. -Discussed doing an ER virtualist visit to decide whether patient should be evaluated in the ER, but patient declined. -Patient has been having fogginess, now with elevated glucose, she states she will go back to [facility] for evaluation. Patient has no PCP and at this time it is [place] evening, unable to contact her automatic quilling machine operator. She will go to [facility]. Diagnosis and treatment plan were discussed and questions were answered to the patient's satisfaction. Pt acknowledged understanding of concepts and follow up plan. Specific signs and symptoms that would indicate the need for higher level of care were discussed in detail warranting prompt ER evaluation. BALJEET Coronel documented in this [facility] History of Present illness Narrative* BALJEET Coronel - 11/19/2022 9:33 AM EST Images from the original note were not included. This note was created using Fractureriter. Subjective Rosa Cervantes is a 27 year old female. HPI 27-year-old female presents for sores on the vagina. She has a history of herpes. States she needs an acyclovir refill. She ran out of it. She is prescribed it twice daily for suppression, but ran out of it. She started getting an outbreak yesterday. No new sexual partners. No abnormal vaginal d ischarge or bleeding. No concern for . She denies any abdominal discomfort. No vomiting ordiarrhea. PAST MEDICAL HISTORY Diagnosis Date Abnormal Pap smear of cervix Anemia Asthma has not used an inhaler since age 18 Complication of anesthesia has issues with breathing after being woken-uses Albuterol Depression Genital herpes Gestational diabetes Hypothyroid PCOS (polycystic ovarian syndrome) PAST SURGICAL HISTORY Procedure Laterality Date CHOLECYSTECTOMY MYRINGOTOMY x4 TONSILLECTOMY AND ADENOIDECTOMY HX ALLERGIES Amoxicillin, Mold, Red Dye, and Wheat MEDICATIONS acyclovir (ZOVIRAX) 400 mg tablet Take 1 tablet by mouth every 12 hours. norgestimate 0.25 mg-ethinyl estradiol 35 mcg (SPRINTEC) 0.25-35 mg-mcg per tablet Take 1 tablet bymouth once daily. L. acidophilus-L. rhamnosus 15 billion cell cap Take 1 capsule by mouth once daily. FLORAJEN WOMEN.If on antibiotic, take at least 1-2 hours before or after antibiotic. KEEP REFRIGERATED miconazole (MONISTAT 7) 2 % vaginal cream Use 1 Applicator vaginally daily at bedtime. levothyroxine (SYNTHROID) 175 mcg tablet Take 1 tablet by mouth daily before breakfast. metFORMIN (GLUCOPHAGE) 500 mg tablet Take 1 tablet by mouth twice daily with meals. sertraline (ZOLOFT) 100 mg tablet Take 1 tablet by mouth once daily. acyclovir (ZOVIRAX) 800 mg tablet Take 1 tablet by mouth three times daily for 2 days. Take at first signs of outbreak. FAMILY HISTORY Problem Relation Age of Onset Asthma Mother Thyroid Mother other (PCOS) Mother Diabetes Father Hypertension Father Thyroid Sister Allergies Sister other (PCOS) Sister Heart Attack Maternal Grandmother Diabetes Maternal Grandfather Heart Maternal Grandfather Cancer Paternal Grandmother Heart Paternal Grandfather Social History Tobacco Use Smoking status: Former Types: Cigarettes Quit date: 10/22/2018 Years since quittin.0 Smokeless tobacco: Never Tobacco comments: social smoker Vaping Use Vaping Use: Never used Substance Use Topics Alcohol use: Not Currently Drug use: Not Currently Types: Marijuana Review of Systems Constitutional: Negative for chills and fever. HENT: Negative for congestion, ear pain and sore throat. Respiratory: Negative for cough and shortness of breath. Cardiovascular: Negative for chest pain. Gastrointestinal: Negative for diarrhea and vomiting. Genitourinary: Positive for vaginal pain. Negative for menstrual problem, pelvic pain, vaginal bleeding and vaginal discharge. Skin: Positive for rash. Objective BP 120/76 Pulse 109 Temp 36.7 C (98.1 F) Resp 18 Wt 109.3 kg (241 lb) LMP 11/12/2022 (Within Days) SpO2 98% BMI 42.69 kg/m Physical Exam Vitals and nursing note reviewed. Exam conducted with a spreader present. Constitutional: General: She is not in acute distress. Appearance: Normal appearance. She is not toxic-appearing. HENT: Mouth/Throat: Mouth: Mucous membranes are moist. Pharynx: Oropharynx is clear. Eyes: Conjunctiva/sclera: Conjunctivae normal. Cardiovascular: Rate and Rhythm: Normal rate and regular rhythm. Pulmonary: Effort: Pulmonary effort is normal. Breath sounds: Normal breath sounds. Genitourinary: Exam position: Lithotomy position. Labia: Right: Rash present. Left: Rash present. Comments: Several vesicular lesions noted on the labia majora. Mild tenderness to touch. No abnormal discharge. No internal lesions. No fluctuance. No abnormal bleeding. No abscess. Skin: General: Skin is warm and dry. Neurological: Mental Status: She is alert. Assessment and Plan ASSESSMENT/PLAN: 1. Recurrent genital herpes - ICD9: 054.10, ICD10: A60.00 (primary diagnosis) -Rx for acyclovir 800 mg p.o. 3 times daily x2 days for outbreak -Patient declines STD testing. 2. Genital herpes simplex, unspecified site - ICD9: 054.10, ICD10: A60.00 - ACYCLOVIR 400 MG TABLET -Refilled acyclovir 400 mg twice daily x30 days for suppression. Advised to follow-up with OB for further refill. Diagnosis and treatment plan were discussed and questions were answered to the patient's satisfaction. Pt acknowledged understanding of concepts and follow up plan. Specific signs and symptoms that would indicate the need for higher level of care were discussed in detail warranting prompt ER evaluation. BALJEET Coronel [facility] Miscellaneous Notes* Telephone Encounter - Marcela De Leon LPN - 10/14/2022 11:49 AM EST PATIENT NOTIFIED OF SAME. * Telephone Encounter - Susan Terrell - 10/14/2022 8:01 AM EST Left message for patient to return call. Susan Terrell * Telephone Encounter - BALJEET Watson - 10/14/2022 7:19 AM EST Call patient, let them know negative for COVID and flu. documented [facility] History of Present illness Narrative* Inessa Esteban PA-C - 10/13/2022 2:51 PM EST 10/13/2022 Patient presents with: Ear Problem: Bilateral ear pain, runny nose, cough x 3 days SUBJECTIVE: This is a 27 year old that is here today for Complaint(s) of rhinorrhea and congestion and cough x .2 weeks, but worsening the last 3 days. Having some ANDRÉS ear discomfort. Reports fever initially, 100.9, but then resolved. Overall feels like her cough is worsening. Feels like she has some intermittent SOB at night. + PMH asthma, but no longer on an inhaler. Does not have albuterol. + diarrhea associated, have 5-6 episodes a day the last couple days. No blood in the stools. No associated abdominal pain. Still drinking fluids and normal urination. PAST MEDICAL HISTORY Diagnosis Date Abnormal Pap smear of cervix Anemia Asthma has not used an inhaler since age 18 Complication of anesthesia has issues with breathing after being woken-uses Albuterol Depression Genital herpes Gestational diabetes Hypothyroid PCOS (polycystic ovarian syndrome) ALLERGIES Amoxicillin, Mold, Red Dye, and Wheat MEDICATIONS Current Outpatient Medications Medication Sig acyclovir (ZOVIRAX) 400 mg tablet Take 1 tablet by mouth every 12 hours. norgestimate 0.25 mg-ethinyl estradiol 35 mcg (SPRINTEC) 0.25-35 mg-mcg per tablet Take 1 tablet bymouth once daily. L. acidophilus-L. rhamnosus 15 billion cell cap Take 1 capsule by mouth once daily. FLORAJEN WOMEN.If on antibiotic, take at least 1-2 hours before or after antibiotic. KEEP REFRIGERATED miconazole (MONISTAT 7) 2 % vaginal cream Use 1 Applicator vaginally daily at bedtime. levothyroxine (SYNTHROID) 175 mcg tablet Take 1 tablet by mouth daily before breakfast. metFORMIN (GLUCOPHAGE) 500 mg tablet Take 1 tablet by mouth twice daily with meals. sertraline (ZOLOFT) 100 mg tablet Take 1 tablet by mouth once daily. No current facility-administered medications for this visit. SOCIAL HISTORY Social History Tobacco Use Smoking status: Former Types: Cigarettes Quit date: 10/22/2018 Years since quittin.9 Smokeless tobacco: Never Tobacco comments: social smoker Vaping Use Vaping Use: Never used Substance Use Topics Alcohol use: Not Currently Drug use: Not Currently Types: Marijuana REVIEW OF SYSTEMS See HPI OBJECTIVE: BP 108/76 Pulse 92 Temp 36.4 C (97.5 F) Resp 21 Wt 110.9 kg (244 lb 9.6 oz) LMP 07/13/2020 SpO2 99% BMI 43.33 kg/m APPEARANCE Well appearing, alert, in no acute distress, well-hydrated, well nourished. EYES PERRLA, conjunctiva and sclera normal. EARS External ears normal, canals clear. TMs normal ANDRÉS NOSE/SINUS Nares normal. Septum midline. Mucosa normal. No drainage or sinus tenderness. THROAT normal, no erythema NECK Supple, no adenopathy; HEART RRR with normal S1 and S2, LUNG clear to auscultation, No wheezing, rhonchi, rales. ASSESSMENT/PLAN: 1. Diarrhea, unspecified type - ICD9: 787.91, ICD10: R19.7 (primary diagnosis) [place]/BRAT diet with fluids F/u in 48 hours if not resolving, sooner if worsening Reviewed red flags and when to seek care sooner. - COVID WITH FLUA+B, ROUTINE 2. Acute cough - ICD9: 786.2, ICD10: R05.1 R/o COVID/flu Suspect other viral etiology Reviewed red flags and when to seek care sooner. F/u in 5-7 days if not resolving, sooner if worsening symptoms Supportive care with fluids, rest, tylenol/motrin, OTC cough/cold meds prn - COVID WITH FLUA+B, ROUTINE The patient indicates understanding of these issues and agrees with the plan. Inessa Esteban PA-C documented [facility] Hospital Discharge instructions Patient Education 06/18/2022 19:05:43 Cellulitis Skin Infection Cellulitis Cellulitis is an infection of the deep layers of skin. A break in the skin, such as a cut or scratch, can let bacteria under the skin. If the bacteria get to deep layers of the skin, it can be serious. If not treated, cellulitis can get into the bloodstream and lymph nodes. The infection can then spread throughout the body. This causes serious illness. Cellulitis causes the affected skin to become red, swollen, warm, and sore. The reddened areas havea visible border. An open sore may leak fluid (pus). You may have a fever, chills, and pain. Cellulitis is treated with antibiotics taken for 7 to 10 days. An open sore may be cleaned and covered with cool wet gauze. Symptoms should get better 1 to 2 days after treatment is started. Make sure to take all the antibiotics for the full number of days until they are gone. Keep taking the medicine even if your symptoms go away. Home care Follow these tips: Limit the use of the part of your body with cellulitis. If the infection is on your leg, keep your leg raised while sitting. This will help to reduce swelling. Take all of the antibiotic medicine exactly as directed until it is gone. Do not miss any doses, especially during the first 7 days. Don t stop taking the medicine when your symptoms get better. Keep the affected area clean and dry. Wash your hands with soap and warm water before and after touching your skin. Anyone else who touches your skin should also wash his or her hands. Don't share towels. Follow-up care Follow up with your healthcare provider, or as advised. If your infection does not go away on the first antibiotic, your healthcare provider will prescribe a different one. When to seek medical advice Call your healthcare provider right away if any of these occur: Red areas that spread Swelling or pain that gets worse Fluid leaking from the skin (pus) Fever higher of 100.4 F (38.0 C) or higher after 2 days on antibiotics 6159-5919 [employer]. [address] [place] [address]. All rights reserved. This information is not intended as a substitute for professional medical care. Always follow yourhealthcare professional's instructions. Follow Up Care 06/18/2022 18:27:53 With:VON DIAZ MD Address: [address] [place] [address] [place] [address]- When:1-2 days With:Go to emergency room if symptoms worsen Address:Unknown When:2-4 days [facility] 09-14-2022 Note Discharge Instructions Thank you for allowing [facility] to assist you with your healthcare needs. The following is importantdischarge information regarding your hospital visit. Diagnosis from Today's Visit Cellulitis Breast problem What to Do Next Instructions from Your Care Team Follow-up with at [facility]. Doxycycline as prescribed for cellulitis. Return emergency department if you noticed increased redness to your breast, drainage, fevers, or any other care concern. May need ultrasound to further evaluate cellulitis versus abscess versus mass. No qualifying data available. Post Acute Orders No qualifying data available. You Need to Schedule the Following Appointments Follow Up with VON DIAZ MD When Within 1-2 days Where: [address] [place] [address] [place] [address]- Follow Up with Go to emergency room if symptoms worsen When Within 2-4 days Allergies Red Dye (hives) Wheat (Hives) amoxicillin (throat closing) Medications Please ask your primary doctor or pharmacist before taking any other medication not listed, including over the counter drugs, herbal medications, vitamins and or supplements as they may interact withyour home medications. What How Much When Why Instructions Last Dose New doxycycline (doxycycline monohydrate 100 mg oral tablet) 1 tab(s) by mouth Two (2) times a day Duration: 7 Days Printed Prescription Unchanged acetaminophen (acetaminophen 500 mg oral tablet) 2 tab(s) by mouth Three (3) times a day as needed for pain or fever Unchanged DME (Pen needles 8 mm) See instructions Diabetes mellitus, type 2 QID testing for type 2 DM Unchanged insulin aspart (Novolog) (NovoLOG FlexPen 100 units/ mL injectable solution) 5 unit(s) Subcutaneous Three (3) times a day before meals Diabetes mellitus, type 2 Duration: 90 Days Unchanged insulin glargine (Lantus Solostar Pen 100 units/ mL 3 mL Pen) 25 unit(s) Subcutaneous Daily at bedtime Diabetes mellitus, type 2 Duration: 90 Days dose increased Unchanged levothyroxine (levothyroxine 25 mcg (0.025 mg) oral tablet) 1 tab(s) by mouth Once a day Hypothyroidism Duration: 60 Days Total dose 200mcg Unchanged levothyroxine (Synthroid 175 mcg (0.175 mg) oral tablet) 1 tab(s) by mouth Once a day Hypothyroid Unchanged lisinopril (lisinopril 2.5 mg oral tablet) 1 tab(s) by mouth Once a day Diabetes mellitus, type 2 Duration: 90 Days Unchanged metFORMIN (metFORMIN 500 mg oral tablet) 2 tab(s) by mouth Two (2) times a day Unchanged pravastatin (pravastatin 10 mg oral tablet) 1 tab(s) by mouth Once a day Diabetes mellitus, type 2 Unchanged valACYclovir (Valtrex 1 g oral tablet) 1 tab(s) by mouth Two (2) times a day Please take this list to your next doctor s visit. Bring all medications you take, including over the counter medications, herbals and other supplements with you to your doctor s visit. Patients and families are reminded to discard old lists and to update any records with all medication providers or retail pharmacies. Education Materials Cellulitis Cellulitis is an infection of the deep layers of skin. A break in the skin, such as a cut or scratch, can let bacteria under the skin. If the bacteria get to deep layers of the skin, it can be serious. If not treated, cellulitis can get into the bloodstream and lymph nodes. The infection can then spread throughout the body. This causes serious illness. Cellulitis causes the affected skin to become red, swollen, warm, and sore. The reddened areas havea visible border. An open sore may leak fluid (pus). You may have a fever, chills, and pain. Cellulitis is treated with antibiotics taken for 7 to 10 days. An open sore may be cleaned and covered with cool wet gauze. Symptoms should get better 1 to 2 days after treatment is started. Make sure to take all the antibiotics for the full number of days until they are gone. Keep taking the medicine even if your symptoms go away. Home care Follow these tips: Limit the use of the part of your body with cellulitis. If the infection is on your leg, keep your leg raised while sitting. This will help to reduce swelling. Take all of the antibiotic medicine exactly as directed until it is gone. Do not miss any doses, especially during the first 7 days. Don t stop taking the medicine when your symptoms get better. Keep the affected area clean and dry. Wash your hands with soap and warm water before and after touching your skin. Anyone else who touches your skin should also wash his or her hands. Don't share towels. Follow-up care Follow up with your healthcare provider, or as advised. If your infection does not go away on the first antibiotic, your healthcare provider will prescribe a different one. When to seek medical advice Call your healthcare provider right away if any of these occur: Red areas that spread Swelling or pain that gets worse Fluid leaking from the skin (pus) Fever higher of 100.4 F (38.0 C) or higher after 2 days on antibiotics [phone] [employer]. [address] [place] [address]. All rights reserved. This information is not intended as a substitute for professional medical care. Always follow yourhealthcare professional's instructions. Additional Information VACCINATE! IT SAVES LIVES! Members of the community who have not yet received the COVID-19 vaccine and would like to receive it can visit one of [facility] vaccine clinics. There are many vaccine clinic locations within the [facility]. For locations and available times, please visit [email or web address]. It is important to note that some COVID mobile vaccine clinics are held outdoors and may be canceled in rainy orstormy conditions. To learn more about pediatric vaccinations (ages 5-11), we invite you to visit the [facility] webpage. [email or web address] learn more about the COVID-19 vaccine, we invite you to visit the [facility] website for a list of frequently asked questions. [email or web address] [facility] Patient Portal Access Instructions: Stay connected with your healthcare team and access your personal medical information anytime with the [facility] Patient Portal. If you would like a full copy of your medical records please contact the [facility] Medical Records Department Thursday through Thursday between 8a.m. and 4:30p.m. Please follow the directions below to access the portal: 1.Access the email account you provided upon registration to the surgical specialty center at [facility].2.Look for an invitation email from [facility].3.Open the email and access the invitation link: Accept Invitation to [facility]4.Fill in the required boyd to create your account. Sign into www.[email or web address] with your username and password that you created in the above steps to stay up to date. You can then view a summary of results, a summary of your visits, and the ability to download your summaries to your computer or send the information securely to a physician. Remember that your healthcare information is confidential, so carefully consider who you will allow to register on the [employer] Patient Portal for access to your information. You can also access the [facility] Patient Portal on the [employer]c. Simply click on Health Records under [employer] and then click on the [employer] logo. HOW TO SAFELY DISPOSE OF PRESCRIPTION MEDICATIONS Please use one of the following methods to safely dispose of your unused medications. 1.Use a drug disposal kit: the drug disposal pouch allows you to safely discard your old and unuseddrugs. Ask your nurse to give you one when you are discharged.2.Visit a local take-back location: Many local pharmacies and police departments have programs that collect old and unwanted prescriptiondrugs. Call your local pharmacy or go to [email or web address] to find one close to you.3.Make use of household items: Use cat litter or old coffee grounds to dispose medications if other options arenot available. Mix your drugs with these household products, seal them in an airtight container andthrow it into the garbage. Call [facility]: [phone] to be sure your drugs can be disposed of in this way. Some medicines may require a different approach.4.Never flush your medications down the toilet. IF YOU HAVE BEEN PRESCRIBED AN OPIOIDS FOR PAIN If you have been prescribed an opioid (such as hydrocodone, oxycodone or morphine), it is critical to understand the possible side effects and risks of opioid pain medications. Even when taken as directed, opioids can have several side effects including: Tolerance, meaning you might need to take more of a medication for the same pain relief. Nausea, vomiting and/or constipation. Sleepiness, dizziness, dry mouth, confusion, depression or itching. Physical dependence, meaning you have withdrawal symptoms when a medication is stopped ? this can develop within a few days. KNOW YOUR RESPONSIBILITIES It is important to know exactly how much and how often to take the opioid pain medications you are prescribed. Never take opioids in higher amounts or more often than prescribed. Do not combine opioids with alcohol or other drugs that cause drowsiness, such as benzodiazepines, also known as benzos,including diazepam and alprazolam, muscle relaxants or sleep aids. Never sell or share prescriptionopioids. This is illegal. Store opioids in a secure place and out of reach of others (including children, family, friends and visitors). The last page(s) of this document has been signed and retained as a CHART COPY Signatures Patient Education Materials Cellulitis Skin Infection Medication Leaflets My discharge plan and instructions have been reviewed and explained to me and I,ROSA CERVANTES understand my current condition and have read and understand these discharge instructions. I have received a written copy of the plan/instructions. If I have questions, I am aware that I should contact my doctor. 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 Patient scheduled for annual. States she is not having an outbreak and does not need a refill at this time documented in this [facility] Hospital Discharge instructions Patient Education 03/17/2022 18:47:35 CONTUSION, Lower Extremity Contusion:Lower Extremity You have a CONTUSION of your LOWER extremity (leg, knee, ankle, foot, or toes). This causes local pain, swelling and sometimes bruising. There are no broken bones. This injury may take from a few days to a few weeks to heal. Home Care: 1) Keep your leg elevated to reduce pain and swelling. When sleeping, place a pillow under the injured leg. When sitting, support the injured leg so it is level with your waist. This is very important during the first 48 hours. 2) If CRUTCHES have been advised, do not bear full weight on the injured leg until you can do so without pain. You may return to sports when you are able to hop and run on the injured leg without pain. 3) Apply an ice pack (ice cubes in a plastic bag, wrapped in a towel) over the injured area for 20 minutes every 1-2 hours the first day for pain relief. Continue this 3-4 times a day until the pain and swelling goes away. 4) You may use acetaminophen (Tylenol) or ibuprofen (Motrin, Advil) to control pain, unless anotherpain medicine was prescribed. [ NOTE : If you have chronic liver or kidney disease or ever had a stomach ulcer or GI bleeding, talk with your doctor before using these medicines.] Follow Up with your doctor or this facility if you are not starting to improve within the next THREE days. [NOTE: If X-rays were taken, they will be reviewed by a radiologist. You will be notified of any new findings that may affect your care.] Get Prompt Medical Attention if any of the following occur: -- Pain or swelling increases -- Toes become cold, blue, numb or tingly -- Redness, warmth or drainage from the skin [id number] [employer]. [address] [place] [address]. All rights reserved. This information is not intended as a substitute for professional medical care. Always follow yourhealthcare professional's instructions. Follow Up Care 03/17/2022 16:25:28 With:JOHAN PRADO Address: [address] [place] [address] [place] [address]- When:1-2 days With:Go to emergency room if symptoms worsen Address:Unknown When:2-4 days [facility] 01-13-2022 Hospital Discharge instructions Patient Education 10/17/2021 12:03:32 How to Check Your Blood Sugar How to Check Your Blood Sugar Keeping track of how much sugar (glucose) is in your blood is an important part of self-care when you have diabetes. This is also called self-monitoring of blood glucose (SMBG). To make sure your glucose and insulin are in balance, check your blood sugar as instructed by your healthcare provider. You may need to check your blood glucose levels at certain times every day. Or you may need to check them only a few times a week. What you need To check your blood sugar, make sure you have the following: A small pricking needle (lancing device) Test strips A glucose meter. Be sure the test strips match the glucose meter. A notebook, chart, or log book and pen or pencil Using a blood glucose meter You can check your blood sugar at home, at work, and anywhere else. Your diabetes team will help you choose a blood glucose meter. A meter measures the amount of glucose in a tiny drop of blood. You ll use a device called a lancet to draw a drop of blood. Put the strip in the meter first. Then touch the test strip to the drop of blood. The meter then gives you a number (reading) that tells you the level of your blood sugar. Aim for your target range Your blood sugar should be in your target range not too high and not too low. A target range is where your blood sugar level is healthiest. Staying in this range as much as possible will help lower your risk for health problems (complications). Your diabetes team will help you figure out the best target range for you. That range depends on many things. They include your age, other health problems, how well your diabetes is controlled, and how long you have had diabetes. In general, target ranges are: Control of blood glucose (hemoglobin A1c or A1c). This should generally be 7.0% or less. You will usually have this test at the lab. Before a meal (preprandial glucose). The target range is between 80 and 130 mg/dL. One to 2 hours after a meal (postprandial glucose). The range is less than 180 mg/dL. Track your readings Use a notebook, chart, or log book to keep track of your readings. Write down the date, time, and your blood sugar level numbers. This helps you see patterns, such as high blood sugar after eating certain foods. Take your log along when you see your healthcare provider. If you would rather track your readings digitally, the [place] [employer] (ADA) has a program called Diabetes 27/04. This online program gives you tools to help monitor diabetes, including blood glucose levels. Your provider may also have an electronic medical record that offers the same type of tracking options. Your blood glucose levels will help your provider decide if he or she needs to make any changes to your management plan. To check your blood sugar, follow the steps below Step 1. Get ready Wash your hands with soap and warm (not hot) water. Follow all of the instructions that came with your glucose meter. Be sure that your test strips were designed to be used with your meter and are not . Step 2. Draw a drop of blood Prick the side of your finger with the lancet. Squeeze gently until you get a drop of blood. Squeezing too hard can cause an inaccurate reading. Put the lancet in a special sharps container. Ask your healthcare team where you can buy one or what you can use to throw away any sharps. If you are unable to get enough blood, hold your hand at your side and gently shake it. If this is a common problem for you, ask your healthcare provider if you can use other parts of your body to get the blood from. Step 3. Place the drop on a strip Wait for the meter to show a message or symbol that it is time to test. Touch the test strip to the drop of blood. Follow the instructions included with meter. Step 4. Read and record your results Wait for your meter to show the result. If you see an error message, recheck using a fresh strip and a fresh drop of blood. Also recheck ifthe glucose numbers aren't what you expect too low without symptoms, or too high for no reason. Write the results in your log book. Bring your log book to you next appointment. 6990-9204 [employer]. [address] [place] [address], [place] [address]. All rights reserved. This information is not intended as a substitute for professional medical care. Always follow yourhealthcare professional's instructions. 10/17/2021 12:03:25 Diabetes: Meal Planning Diabetes: Meal Planning You can help keep your blood sugar level in your target range by eating healthy foods. Your healthcare team can help you create a low-fat, nutritious meal plan. Take an active role in your diabetes management. Follow your meal plan and work with your healthcare team. Make your meal plan A meal plan gives guidelines for the types and amounts of food you should eat. The goal is to balance food and insulin (or other diabetes medicines). That way, your blood sugars will be in your target range. Your dietitian will help you make a flexible meal plan that has many foods that you like. Watch serving sizes Your meal plan will group foods by servings. To learn how much a serving is, start by measuring food portions at each meal. Soon you ll know what a serving looks like on your plate. Ask your healthcare provider about how to balance servings of different foods. Eat from all the food groups The basis of a healthy meal plan is variety (eating lots of different foods). Choose lean meats, fresh fruits and vegetables, whole grains, and low-fat or nonfat dairy products. Eating a wide varietyof foods gives your body the nutrients it needs. It can also keep you from getting bored with your meal plan. Learn about carbohydrates, fats, and protein Carbohydrates are starches, sugars, and fiber. They are found in many foods. These include fruit, bread, pasta, milk, and sweets. Of all the foods you eat, carbohydrates have the most effect on your blood sugar. Your dietitian may teach you about carb counting. This is a way to figure out the number of carbohydrates in a meal. Fats have the most calories. They also have the most effect on your weight and your risk of heart disease. When you have diabetes, it s important to control your weight and protect your heart. Foods that are high in fat include whole milk, cheese, snack foods, and desserts. You can eat more of the heart-healthy fats such as avocados, salmon, tuna, and olive oil. Protein is important for building and repairing muscles and bones. Choose low- fat protein sources, such as fish, egg whites, and skinless chicken. Reduce liquid sugars Extra calories from sodas, sports drinks, and fruit drinks make it hard to keep blood sugar in range. Cut as many liquid sugars from your meal plan as you can. This includes most fruit juices. They are often high in natural or added sugar. Instead, drink plenty of water and other sugar-free beverages. Eat less fat If you need to lose weight, try to reduce the amount of fat in your diet. This can also help lower your cholesterol level to keep blood vessels healthier. Cut fat by using only small amounts of liquid oil for cooking. Read food labels carefully. Stay away from foods with unhealthy trans fats. When it comes to blood sugar control, when you eat is as important as what you eat. You may need toeat several small meals spaced evenly throughout the day to stay in your target range. So don t skip breakfast or wait until late in the day to get most of your calories. Doing so can cause your blood sugar to rise too high or fall too low. 3053-2848 [employer]. [address] [place] [address], [place] [address]. All rights reserved. This information is not intended as a substitute for professional medical care. Always follow yourhealthcare professional's instructions. 10/17/2021 12:03:23 Diabetes with High Blood Sugar Diabetes with High Blood Sugar You have been treated for high blood sugar (hyperglycemia). This may be because of an infection or other illness. Or it may be from eating too many sweets or starches. Or it may be from not taking enough insulin or other diabetes medicine. Home care Check your blood sugar level at least 2 times a day. Write it down the results. Do this before breakfast and before dinner. If you take insulin, also write down your routine insulin dose. Note any other doses you needed based on your sliding scale or as advised by your healthcare provider. Do this for the next 3 to 5 days. High blood sugar may cause symptoms that you can learn to spot. These include: Peeing often Thirst Headache Breath that smells fruity Nausea or vomiting Belly pain If you have symptoms of high blood sugar, use a blood or urine test to find out what your blood sugar level is. If it is above your usual range, use the sliding scale regular insulin dose from your healthcare provider. Call your provider for advice if you were not given a range for your insulin dose. If your blood sugar is over 240 mg/dL, check your urine for ketones. Follow-up care Follow up with your healthcare provider, or as advised. You may need to meet with your provider in the next week. You will likely look at your blood sugar records together. You may need to change your dose of insulin or other diabetes medicine. When to seek medical advice Call your healthcare provider right away if these occur: Symptoms of high blood sugar that don't get better with the treatment your provider advised. This is especially true if you also have ketones in your urine. Blood sugar over 300 mg/dl. If you can t reach your healthcare provider, go to a hospital emergencyroom or urgent care center. Call 911 Call 911 if you have any of the following: Confusion Dizziness, lightheadedness, or loss of consciousness Shortness of breath Chest pain Weakness of an arm, leg, or one side of the face Sudden trouble with speech or vision [phone] [employer]. [address] [place] [address], [place] [address]. All rights reserved. This information is not intended as a substitute for professional medical care. Always follow yourhealthcare professional's instructions. 10/17/2021 12:02:01 How to Check Your Blood Sugar How to Check Your Blood Sugar Keeping track of how much sugar (glucose) is in your blood is an important part of self-care when you have diabetes. This is also called self-monitoring of blood glucose (SMBG). To make sure your glucose and insulin are in balance, check your blood sugar as instructed by your healthcare provider. You may need to check your blood glucose levels at certain times every day. Or you may need to check them only a few times a week. What you need To check your blood sugar, make sure you have the following: A small pricking needle (lancing device) Test strips A glucose meter. Be sure the test strips match the glucose meter. A notebook, chart, or log book and pen or pencil Using a blood glucose meter You can check your blood sugar at home, at work, and anywhere else. Your diabetes team will help you choose a blood glucose meter. A meter measures the amount of glucose in a tiny drop of blood. You ll use a device called a lancet to draw a drop of blood. Put the strip in the meter first. Then touch the test strip to the drop of blood. The meter then gives you a number (reading) that tells you the level of your blood sugar. Aim for your target range Your blood sugar should be in your target range not too high and not too low. A target range is where your blood sugar level is healthiest. Staying in this range as much as possible will help lower your risk for health problems (complications). Your diabetes team will help you figure out the best target range for you. That range depends on many things. They include your age, other health problems, how well your diabetes is controlled, and how long you have had diabetes. In general, target ranges are: Control of blood glucose (hemoglobin A1c or A1c). This should generally be 7.0% or less. You will usually have this test at the lab. Before a meal (preprandial glucose). The target range is between 80 and 130 mg/dL. One to 2 hours after a meal (postprandial glucose). The range is less than 180 mg/dL. Track your readings Use a notebook, chart, or log book to keep track of your readings. Write down the date, time, and your blood sugar level numbers. This helps you see patterns, such as high blood sugar after eating certain foods. Take your log along when you see your healthcare provider. If you would rather track your readings digitally, the [place] [employer] (ADA) has a program called Diabetes 27/04. This online program gives you tools to help monitor diabetes, including blood glucose levels. Your provider may also have an electronic medical record that offers the same type of tracking options. Your blood glucose levels will help your provider decide if he or she needs to make any changes to your management plan. To check your blood sugar, follow the steps below Step 1. Get ready Wash your hands with soap and warm (not hot) water. Follow all of the instructions that came with your glucose meter. Be sure that your test strips were designed to be used with your meter and are not . Step 2. Draw a drop of blood Prick the side of your finger with the lancet. Squeeze gently until you get a drop of blood. Squeezing too hard can cause an inaccurate reading. Put the lancet in a special sharps container. Ask your healthcare team where you can buy one or what you can use to throw away any sharps. If you are unable to get enough blood, hold your hand at your side and gently shake it. If this is a common problem for you, ask your healthcare provider if you can use other parts of your body to get the blood from. Step 3. Place the drop on a strip Wait for the meter to show a message or symbol that it is time to test. Touch the test strip to the drop of blood. Follow the instructions included with meter. Step 4. Read and record your results Wait for your meter to show the result. If you see an error message, recheck using a fresh strip and a fresh drop of blood. Also recheck ifthe glucose numbers aren't what you expect too low without symptoms, or too high for no reason. Write the results in your log book. Bring your log book to you next appointment. [id number] [employer]. [address] [place] [address]. All rights reserved. This information is not intended as a substitute for professional medical care. Always follow yourhealthcare professional's instructions. 10/17/2021 12:01:49 Diabetes with High Blood Sugar Diabetes with High Blood Sugar You have been treated for high blood sugar (hyperglycemia). This may be because of an infection or other illness. Or it may be from eating too many sweets or starches. Or it may be from not taking enough insulin or other diabetes medicine. Home care Check your blood sugar level at least 2 times a day. Write it down the results. Do this before breakfast and before dinner. If you take insulin, also write down your routine insulin dose. Note any other doses you needed based on your sliding scale or as advised by your healthcare provider. Do this for the next 3 to 5 days. High blood sugar may cause symptoms that you can learn to spot. These include: Peeing often Thirst Headache Breath that smells fruity Nausea or vomiting Belly pain If you have symptoms of high blood sugar, use a blood or urine test to find out what your blood sugar level is. If it is above your usual range, use the sliding scale regular insulin dose from your healthcare provider. Call your provider for advice if you were not given a range for your insulin dose. If your blood sugar is over 240 mg/dL, check your urine for ketones. Follow-up care Follow up with your healthcare provider, or as advised. You may need to meet with your provider in the next week. You will likely look at your blood sugar records together. You may need to change your dose of insulin or other diabetes medicine. When to seek medical advice Call your healthcare provider right away if these occur: Symptoms of high blood sugar that don't get better with the treatment your provider advised. This is especially true if you also have ketones in your urine. Blood sugar over 300 mg/dl. If you can t reach your healthcare provider, go to a hospital emergencyroom or urgent care center. Call 911 Call 911 if you have any of the following: Confusion Dizziness, lightheadedness, or loss of consciousness Shortness of breath Chest pain Weakness of an arm, leg, or one side of the face Sudden trouble with speech or vision [phone] [employer]. [address] [place] [address]. All rights reserved. This information is not intended as a substitute for professional medical care. Always follow yourhealthcare professional's instructions. Follow Up Care 10/17/2021 09:45:28 With:LUC GREEN DO Address: [address] [place] [address] [place] [address]- [phone] When:2-4 days [facility] 07-26-2021 Evaluation + Plan note Future Scheduled Tests Laboratory* Thyroid Stimulating Hormone 04/29/21 * A1C Hemoglobin 04/29/21 * Complete Blood Count 04/29/21 * Lipid Profile 04/29/21 * Complete Metabolic Panel 04/29/21 [facility] 08-19-2019 History of Past illness Narrative* Problem Noted Date Resolved Date Encounter for supervision of high risk with insufficient care, antepartum 05/23/2019 07/12/2019 Overview: 05/23/2019Recently moved here from [place] May 07. She states that she saw the doctor in [place] 2-3 times total. Signed release of records form to get her records from [place]. Was planning on seeing OB in [place] but states they told her she was too high risk and needed to come here for care. Had one episode of threatened PTL 05/05. Was given fluids at hospital. Denies any medication given to stop labor.TKRN Social work met with patient and her family today to help get her in touch w/ local resources. 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 Needs growth US, NSTs, BS checks. Juan David De Leon MD 05/23/2019 Was placed on Insulin during the . Does not take blood sugars routinely because I don't have the right strips to my machine and I don't like taking them. She states the last time she took her blood sugars it was 170 and that was 2 hours after lunch. I discussed at length the dangers of uncontrolled blood sugars in . I gave her a blood sugar log and asked her to take her blood sugars every morning fasting, and 2 hours after breakfast, lunch and dinner.TKRN History of hypothyroidism 05/23/20192018 History of herpes genitalis 05/23/201905/06 Family history of congenital heart defect 201807/12/2019 Overview: 05/23/2019FOB was born premature and with a hole in heart. He had surgical correction on heart andand stomach but unsure why he had stomach surgery. TKRN documented as of this encounter (statuses as of 03/18/2022) [facility] History of Past illness Narrative* Problem Noted Date Resolved Date Encounter for supervision of high risk with insufficient care, antepartum 05/23/2019 07/12/2019 Overview: 05/23/2019Recently moved here from [place] May 07. She states that she saw the doctor in [place] 2-3 times total. Signed release of records form to get her records from [place]. Was planning on seeing OB in [place] but states they told her she was too high risk and needed to come here for care. Had one episode of threatened PTL 05/05. Was given fluids at hospital. Denies any medication given to stop labor.TKRN Social work met with patient and her family today to help get her in touch w/ local resources. 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 Needs growth US, NSTs, BS checks. Juan David De Leon MD 05/23/2019 Was placed on Insulin during the . Does not take blood sugars routinely because I don't have the right strips to my machine and I don't like taking them. She states the last time she took her blood sugars it was 170 and that was 2 hours after lunch. I discussed at length the dangers of uncontrolled blood sugars in . I gave her a blood sugar log and asked her to take her blood sugars every morning fasting, and 2 hours after breakfast, lunch and dinner.TKRN History of hypothyroidism 05/23/20192018 History of herpes genitalis 05/23/201905/06 Family history of congenital heart defect 201807/12/2019 Overview: 05/23/2019FOB was born premature and with a hole in heart. He had surgical correction on heart andand stomach but unsure why he had stomach surgery. TKRN documented as of this encounter (statuses as of 10/14/2022) [facility] History of Past illness Narrative* Problem Noted Date Resolved Date Encounter for supervision of high risk with insufficient care, antepartum 05/23/2019 07/12/2019 Overview: 05/23/2019Recently moved here from [place] May 07. She states that she saw the doctor in [place] 2-3 times total. Signed release of records form to get her records from [place]. Was planning on seeing OB in [place] but states they told her she was too high risk and needed to come here for care. Had one episode of threatened PTL 05/05. Was given fluids at hospital. Denies any medication given to stop labor.TKRN Social work met with patient and her family today to help get her in touch w/ local resources. 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 Needs growth US, NSTs, BS checks. Juan David De Leon MD 05/23/2019 Was placed on Insulin during the . Does not take blood sugars routinely because I don't have the right strips to my machine and I don't like taking them. She states the last time she took her blood sugars it was 170 and that was 2 hours after lunch. I discussed at length the dangers of uncontrolled blood sugars in . I gave her a blood sugar log and asked her to take her blood sugars every morning fasting, and 2 hours after breakfast, lunch and dinner.TKRN History of hypothyroidism 05/23/20192018 History of herpes genitalis 05/23/201905/06 Family history of congenital heart defect 201807/12/2019 Overview: 05/23/2019FOB was born premature and with a hole in heart. He had surgical correction on heart andand stomach but unsure why he had stomach surgery. TKRN documented as of this encounter (statuses as of 10/14/2022) [facility] History of Past illness Narrative* Problem Noted Date Resolved Date Encounter for supervision of high risk with insufficient care, antepartum 05/23/2019 07/12/2019 Overview: 05/23/2019Recently moved here from [place] May 07. She states that she saw the doctor in [place] 2-3 times total. Signed release of records form to get her records from [place]. Was planning on seeing OB in [place] but states they told her she was too high risk and needed to come here for care. Had one episode of threatened PTL 05/05. Was given fluids at hospital. Denies any medication given to stop labor.TKRN Social work met with patient and her family today to help get her in touch w/ local resources. 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 Needs growth US, NSTs, BS checks. Juan David De Leon MD 05/23/2019 Was placed on Insulin during the . Does not take blood sugars routinely because I don't have the right strips to my machine and I don't like taking them. She states the last time she took her blood sugars it was 170 and that was 2 hours after lunch. I discussed at length the dangers of uncontrolled blood sugars in . I gave her a blood sugar log and asked her to take her blood sugars every morning fasting, and 2 hours after breakfast, lunch and dinner.TKRN History of hypothyroidism 05/23/20192018 History of herpes genitalis 05/23/201905/06 Family history of congenital heart defect 201807/12/2019 Overview: 05/23/2019FOB was born premature and with a hole in heart. He had surgical correction on heart andand stomach but unsure why he had stomach surgery. TKRN documented as of this encounter (statuses as of 11/19/2022) [facility]08-19-2019 History of Past illness Narrative* Problem Noted Date Resolved Date Encounter for supervision of high risk with insufficient care, antepartum 05/23/2019 07/12/2019 Overview: 05/23/2019Recently moved here from [place] May 07. She states that she saw the doctor in [place] 2-3 times total. Signed release of records form to get her records from [place]. Was planning on seeing OB in [place] but states they told her she was too high risk and needed to come here for care. Had one episode of threatened PTL 05/05. Was given fluids at hospital. Denies any medication given to stop labor.TKRN Social work met with patient and her family today to help get her in touch w/ local resources. 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 Needs growth US, NSTs, BS checks. Juan David De Leon MD 05/23/2019 Was placed on Insulin during the . Does not take blood sugars routinely because I don't have the right strips to my machine and I don't like taking them. She states the last time she took her blood sugars it was 170 and that was 2 hours after lunch. I discussed at length the dangers of uncontrolled blood sugars in . I gave her a blood sugar log and asked her to take her blood sugars every morning fasting, and 2 hours after breakfast, lunch and dinner.TKRN History of hypothyroidism 05/23/20192018 History of herpes genitalis 05/23/201905/06 Family history of congenital heart defect 201807/12/2019 Overview: 05/23/2019FOB was born premature and with a hole in heart. He had surgical correction on heart andand stomach but unsure why he had stomach surgery. TKRN documented as of this encounter (statuses as of 03/14/2023) [facility]08-19-2019 History of Past illness Narrative* Problem Noted Date Resolved Date Encounter for supervision of high risk with insufficient care, antepartum 05/23/2019 07/12/2019 Overview: 05/23/2019Recently moved here from [place] May 07. She states that she saw the doctor in [place] 2-3 times total. Signed release of records form to get her records from [place]. Was planning on seeing OB in [place] but states they told her she was too high risk and needed to come here for care. Had one episode of threatened PTL 05/05. Was given fluids at hospital. Denies any medication given to stop labor.TKRN Social work met with patient and her family today to help get her in touch w/ local resources. 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 Needs growth US, NSTs, BS checks. Juan David De Leon MD 05/23/2019 Was placed on Insulin during the . Does not take blood sugars routinely because I don't have the right strips to my machine and I don't like taking them. She states the last time she took her blood sugars it was 170 and that was 2 hours after lunch. I discussed at length the dangers of uncontrolled blood sugars in . I gave her a blood sugar log and asked her to take her blood sugars every morning fasting, and 2 hours after breakfast, lunch and dinner.TKRN History of hypothyroidism 05/23/20192018 History of herpes genitalis 05/23/201905/06 Family history of congenital heart defect 201807/12/2019 Overview: 05/23/2019FOB was born premature and with a hole in heart. He had surgical correction on heart andand stomach but unsure why he had stomach surgery. TKRN documented as of this encounter (statuses as of 03/28/2023) [facility]08-19-2019 History of Past illness Narrative* Problem Noted Date Resolved Date Encounter for supervision of high risk with insufficient care, antepartum 05/23/2019 07/12/2019 Overview: 05/23/2019Recently moved here from [place] May 07. She states that she saw the doctor in [place] 2-3 times total. Signed release of records form to get her records from [place]. Was planning on seeing OB in [place] but states they told her she was too high risk and needed to come here for care. Had one episode of threatened PTL 05/05. Was given fluids at hospital. Denies any medication given to stop labor.TKRN Social work met with patient and her family today to help get her in touch w/ local resources. 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 Needs growth US, NSTs, BS checks. Juan David De Leon MD 05/23/2019 Was placed on Insulin during the . Does not take blood sugars routinely because I don't have the right strips to my machine and I don't like taking them. She states the last time she took her blood sugars it was 170 and that was 2 hours after lunch. I discussed at length the dangers of uncontrolled blood sugars in . I gave her a blood sugar log and asked her to take her blood sugars every morning fasting, and 2 hours after breakfast, lunch and dinner.TKRN History of hypothyroidism 05/23/20192018 History of herpes genitalis 05/23/201905/06 Family history of congenital heart defect 201807/12/2019 Overview: 05/23/2019FOB was born premature and with a hole in heart. He had surgical correction on heart andand stomach but unsure why he had stomach surgery. TKRN documented as of this encounter (statuses as of 04/01/2023) [facility]08-19-2019 History of Past illness Narrative* Problem Noted Date Diagnosed Date Resolved Date Encounter for supervision of high risk with insufficient care, antepartum 05/23/2019 07/12/2019 Overview: 05/23/2019Recently moved here from [place] May 07. She states that she saw the doctor in [place] 2-3 times total. Signed release of records form to get her records from [place]. Was planning on seeing OB in [place] but states they told her she was too high risk and needed to come here for care. Had one episode of threatened PTL 05/05. Was given fluids at hospital. Denies any medication given to stop labor.TKRN Social work met with patient and her family today to help get her in touch w/ local resources. 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 Needs growth US, NSTs, BS checks. Juan David De Leon MD 05/23/2019 Was placed on Insulin during the . Does not take blood sugars routinely because I don't have the right strips to my machine and I don't like taking them. She states the last time she took her blood sugars it was 170 and that was 2 hours after lunch. I discussed at length the dangers of uncontrolled blood sugars in . I gave her a blood sugar log and asked her to take her blood sugars every morning fasting, and 2 hours after breakfast, lunch and dinner.TKRN History of hypothyroidism 05/23/2019 History of herpes genitalis 05/23/2019 05/24/2019 Family history of congenital heart defect 05/23/2019 07/12/2019 Overview: 05/23/2019FOB was born premature and with a hole in heart. He had surgical correction on heart andand stomach but unsure why he had stomach surgery. TKRN documented as of this encounter (statuses as of 05/06/2023) [facility]08-19-2019 History of Past illness Narrative* Problem Noted Date Diagnosed Date Resolved Date Encounter for supervision of high risk with insufficient care, antepartum 05/23/2019 07/12/2019 Overview: 05/23/2019Recently moved here from [place] May 07. She states that she saw the doctor in [place] 2-3 times total. Signed release of records form to get her records from [place]. Was planning on seeing OB in [place] but states they told her she was too high risk and needed to come here for care. Had one episode of threatened PTL 05/05. Was given fluids at hospital. Denies any medication given to stop labor.TKRN Social work met with patient and her family today to help get her in touch w/ local resources. 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 Needs growth US, NSTs, BS checks. Juan David De Leon MD 05/23/2019 Was placed on Insulin during the . Does not take blood sugars routinely because I don't have the right strips to my machine and I don't like taking them. She states the last time she took her blood sugars it was 170 and that was 2 hours after lunch. I discussed at length the dangers of uncontrolled blood sugars in . I gave her a blood sugar log and asked her to take her blood sugars every morning fasting, and 2 hours after breakfast, lunch and dinner.TKRN History of hypothyroidism 05/23/2019 History of herpes genitalis 05/23/2019 05/24/2019 Family history of congenital heart defect 05/23/2019 07/12/2019 Overview: 05/23/2019FOB was born premature and with a hole in heart. He had surgical correction on heart andand stomach but unsure why he had stomach surgery. TKRN documented as of this encounter (statuses as of 06/16/2023) [facility]08-19-2019 History of Past illness Narrative* Problem Noted Date Diagnosed Date Resolved Date Encounter for supervision of high risk with insufficient care, antepartum 05/23/2019 07/12/2019 Overview: 05/23/2019Recently moved here from [place] May 07. She states that she saw the doctor in [place] 2-3 times total. Signed release of records form to get her records from [place]. Was planning on seeing OB in [place] but states they told her she was too high risk and needed to come here for care. Had one episode of threatened PTL 05/05. Was given fluids at hospital. Denies any medication given to stop labor.TKRN Social work met with patient and her family today to help get her in touch w/ local resources. 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 Needs growth US, NSTs, BS checks. Juan David De Leon MD 05/23/2019 Was placed on Insulin during the . Does not take blood sugars routinely because I don't have the right strips to my machine and I don't like taking them. She states the last time she took her blood sugars it was 170 and that was 2 hours after lunch. I discussed at length the dangers of uncontrolled blood sugars in . I gave her a blood sugar log and asked her to take her blood sugars every morning fasting, and 2 hours after breakfast, lunch and dinner.TKRN History of hypothyroidism 05/23/2019 History of herpes genitalis 05/23/2019 05/24/2019 Family history of congenital heart defect 05/23/2019 07/12/2019 Overview: 05/23/2019FOB was born premature and with a hole in heart. He had surgical correction on heart andand stomach but unsure why he had stomach surgery. TKRN documented as of this encounter (statuses as of 06/22/2023) [facility]08-19-2019 History of Past illness Narrative* Problem Noted Date Diagnosed Date Resolved Date Encounter for supervision of high risk with insufficient care, antepartum 05/23/2019 07/12/2019 Overview: 05/23/2019Recently moved here from [place] May 07. She states that she saw the doctor in [place] 2-3 times total. Signed release of records form to get her records from [place]. Was planning on seeing OB in [place] but states they told her she was too high risk and needed to come here for care. Had one episode of threatened PTL 05/05. Was given fluids at hospital. Denies any medication given to stop labor.TKRN Social work met with patient and her family today to help get her in touch w/ local resources. 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 Needs growth US, NSTs, BS checks. Juan David De Leon MD 05/23/2019 Was placed on Insulin during the . Does not take blood sugars routinely because I don't have the right strips to my machine and I don't like taking them. She states the last time she took her blood sugars it was 170 and that was 2 hours after lunch. I discussed at length the dangers of uncontrolled blood sugars in . I gave her a blood sugar log and asked her to take her blood sugars every morning fasting, and 2 hours after breakfast, lunch and dinner.TKRN History of hypothyroidism 05/23/2019 Family history of congenital heart defect 05/23/2019 07/12/2019 Overview: 05/23/2019FOB was born premature and with a hole in heart. He had surgical correction on heart andand stomach but unsure why he had stomach surgery. TKRN documented as of this encounter (statuses as of 07/03/2023) [facility] Appointment Date:04/03/2022 01:30:00 PM Scheduled Provider:TANGELA JOHNSON Location:[facility] Appointment Type:PC OV Follow Up Future Scheduled Tests Laboratory* Thyroid Stimulating Hormone 04/29/21 * Thyroid Stimulating Hormone 02/04/22 * A1C Hemoglobin 04/29/21 * Complete Blood Count 04/29/21 * Lipid Profile 04/03/22 * Lipid Profile 04/29/21 * Complete Metabolic Panel 04/03/22 * Complete Metabolic Panel 04/29/21 [facility] Future Appointments Appointment Date:06/20/2022 11:30:00 AM Scheduled Provider:TANGELA JOHNSON Location:[facility] Appointment Type:PC OV Future Scheduled Tests Laboratory* Thyroid Stimulating Hormone 02/04/22 * Lipid Profile 04/03/22 * Complete Metabolic Panel 04/03/22 [facility]* Diagnosis Genital herpes simplex, unspecified site documented in this encounter [facility] note* Diagnosis Diarrhea, unspecified type- Primary Acute cough [facility] Diagnosis Recurrent genital herpes- Primary Genital herpes, unspecified Genital herpes simplex, unspecified site documented in this encounter [facility] note* Diagnosis Acute midline low back pain without sciatica- Primary Glucosuria Glycosuria Hyperglycemia Other abnormal glucose documented in this encounter [facility] note* Diagnosis Recurrent genital herpes- Primary Genital herpes, unspecified Hypothyroidism, acquired Unspecified hypothyroidism Peripheral edema Edema [facility]* Diagnosis Infection of lip- Primary Diseases of lips documented in this encounter [facility] note* Diagnosis Rash- Primary Rash and other nonspecific skin eruption [facility]* Diagnosis Lice- Primary Pediculosis, unspecified Vaginal pain Unspecified symptom associated with female genital organs Possible examination or test, unconfirmed documented in this encounter [facility] note* Diagnosis Pelvic pain in - Primary Other specified complication of , unspecified as to episode of care documented in this encounter [facility] note* Diagnosis Insulin controlled gestational diabetes mellitus (GDM) in first trimester- Primary documented in this encounter [facility] note* Diagnosis Diabetes mellitus type 2 with ketoacidosis, uncontrolled (HCC)- Primary Type II or unspecified type diabetes mellitus with ketoacidosis, uncontrolled Pre-existing type 2 diabetes mellitus in in first trimester Diabetes mellitus of mother, complicating , childbirth, or the puerperium, unspecified as to episode of care documented in this encounter [facility] note* Diagnosis Insulin controlled gestational diabetes mellitus (GDM) in first trimester- Primary Supervision of high risk due to social problems, first trimester Poorly controlled diabetes mellitus (HCC) Type II or unspecified type diabetes mellitus without mention of complication, not stated as uncontrolled with history of section, antepartum Nausea and vomiting in Unspecified vomiting of , unspecified as to episode of care with uncertain dates in first trimester Hypothyroidism affecting in first trimester Pre-existing type 2 diabetes mellitus during in first trimester documented in this encounter [facility] note* Diagnosis Dietary counseling- Primary Dietary surveillance and counseling Insulin controlled gestational diabetes mellitus (GDM) in first trimester Supervision of high risk due to social problems, first trimester Poorly controlled diabetes mellitus (HCC) Type II or unspecified type diabetes mellitus without mention of complication, not stated as uncontrolled with history of section, antepartum Nausea and vomiting in Unspecified vomiting of , unspecified as to episode of care with uncertain dates in first trimester Hypothyroidism affecting in first trimester Pre-existing type 2 diabetes mellitus during in first trimester documented in this encounter [facility] note* Diagnosis Poorly controlled diabetes mellitus (HCC)- Primary Type II or unspecified type diabetes mellitus without mention of complication, not stated as uncontrolled Insulin controlled gestational diabetes mellitus (GDM) in first trimester with history of section, antepartum Hypothyroidism affecting in first trimester 12 weeks gestation of state, incidental High-risk in first trimester documented in this encounter [facility] note* Diagnosis URI, acute- Primary Acute upper respiratory infections of unspecified site Acute cough History of asthma Personal history of other diseases of respiratory system documented in this encounter [facility] note* Diagnosis Pre-existing type 2 diabetes mellitus in in first trimester- Primary Diabetes mellitus of mother, complicating , childbirth, or the puerperium, unspecified as to episode of care Pre-existing diabetes mellitus in in second trimester Diabetes mellitus, antepartum Thyroid dysfunction in in second trimester Thyroid dysfunction, antepartum High-risk , second trimester [facility]* Diagnosis 15 weeks gestation of - Primary state, incidental Poorly controlled diabetes mellitus (HCC) Type II or unspecified type diabetes mellitus without mention of complication, not stated as uncontrolled with history of section, antepartum Other specified hypothyroidism [facility]* Diagnosis Insulin controlled gestational diabetes mellitus (GDM) in first trimester- Primary Poorly controlled diabetes mellitus (HCC) Type II or unspecified type diabetes mellitus without mention of complication, not stated as uncontrolled with history of section, antepartum Hypothyroidism affecting in first trimester Other specified hypothyroidism Obesity affecting , antepartum, unspecified obesity type 17 weeks gestation of state, incidental Encounter for anatomic survey documented [facility]* Diagnosis Poorly controlled diabetes mellitus (HCC)- Primary Type II or unspecified type diabetes mellitus without mention of complication, not stated as uncontrolled Obesity in Obesity complicating , childbirth, or the puerperium, unspecified as to episode of care or not applicable High-risk in second trimester with history of section, antepartum 27 weeks gestation of state, incidental Herpes simplex vulvovaginitis [facility] Diagnosis Suspected problem with growth not found- Primary with history of section, antepartum Insulin controlled gestational diabetes mellitus (GDM) in second trimester Hypothyroidism affecting in second trimester High-risk in first trimester Maternal obesity syndrome in second trimester BMI 40.0-44.9, adult (HCC) Body Mass Index 40.0-44.9, adult 27 weeks gestation of state, incidental [facility]* Diagnosis Poorly controlled diabetes mellitus (HCC)- Primary Type II or unspecified type diabetes mellitus without mention of complication, not stated as uncontrolled High-risk in second trimester [facility]* Diagnosis with type 2 diabetes mellitus in second trimester- Primary High-risk in second trimester High-risk in first trimester Elevated TSH Nonspecific abnormal results of thyroid function study 29 weeks gestation of state, incidental [facility]* Diagnosis Pre-existing type 2 diabetes mellitus in in third trimester- Primary Diabetes mellitus of mother, complicating , childbirth, or the puerperium, unspecified as to episode of care Thyroid dysfunction in in third trimester Thyroid dysfunction, antepartum High-risk , third trimester [facility]* Diagnosis with type 2 diabetes mellitus in second trimester- Primary Obesity affecting in third trimester, unspecified obesity type 31 weeks gestation of state, incidental Encounter for ultrasound to assess growth Polyhydramnios in first trimester, single or unspecified fetus Anomaly of heart of fetus affecting , antepartum, single or unspecified fetus Hypothyroidism, unspecified type [facility]* Diagnosis 31 weeks gestation of - Primary state, incidental Poorly controlled diabetes mellitus (HCC) Type II or unspecified type diabetes mellitus without mention of complication, not stated as uncontrolled [facility]* Diagnosis Herpes simplex vulvovaginitis- Primary [facility]* Diagnosis with type 2 diabetes mellitus in third trimester- Primary 32 weeks gestation of state, incidental Obesity in Obesity complicating , childbirth, or the puerperium, unspecified as to episode of care or not applicable [facility]* Diagnosis Poorly controlled diabetes mellitus (HCC)- Primary Type II or unspecified type diabetes mellitus without mention of complication, not stated as uncontrolled with type 2 diabetes mellitus in second trimester High-risk in second trimester [facility]* Diagnosis Poorly controlled diabetes mellitus (HCC)- Primary Type II or unspecified type diabetes mellitus without mention of complication, not stated as uncontrolled 32 weeks gestation of state, incidental Obesity in Obesity complicating , childbirth, or the puerperium, unspecified as to episode of care or not applicable [facility]* Diagnosis Poorly controlled diabetes mellitus (HCC) Type II or unspecified type diabetes mellitus without mention of complication, not stated as uncontrolled High-risk in second trimester [facility]* Diagnosis Poorly controlled diabetes mellitus (HCC)- Primary Type II or unspecified type diabetes mellitus without mention of complication, not stated as uncontrolled Herpes simplex vulvovaginitis 33 weeks gestation of state, incidental Supervision of high risk in third trimester Unspecified high-risk [facility] Diagnosis with type 2 diabetes mellitus in second trimester- Primary Hypothyroidism affecting in third trimester Anomaly of heart of fetus affecting , antepartum, single or unspecified fetus Supervision of high risk in third trimester Unspecified high-risk documented in this encounter [facility] note* Diagnosis with type 2 diabetes mellitus in second trimester- Primary Obesity affecting in third trimester, unspecified obesity type documented in this encounter [facility] note* Diagnosis Hypothyroidism affecting in third trimester- Primary Poorly controlled diabetes mellitus (HCC) Type II or unspecified type diabetes mellitus without mention of complication, not stated as uncontrolled Herpes simplex vulvovaginitis Polyhydramnios in first trimester, single or unspecified fetus documented in this encounter [facility] note* Diagnosis care and examination immediately after delivery- Primary Other depression documented in this encounter [facility] note* Diagnosis Disorder of blood glucose- Primary documented in this encounter [facility] note* Diagnosis care and examination- Primary Routine follow-up documented in this encounter [facility] note* Diagnosis Poorly controlled diabetes mellitus (HCC)- Primary Type II or unspecified type diabetes mellitus without mention of complication, not stated as uncontrolled Non-healing surgical wound, subsequent encounter documented in this encounter [facility] note* Diagnosis Poorly controlled diabetes mellitus (HCC)- Primary Type II or unspecified type diabetes mellitus without mention of complication, not stated as uncontrolled Non-healing surgical wound, subsequent encounter documented in this encounter [facility] note* Diagnosis Type 2 diabetes mellitus with hyperglycemia, with long-term current use of insulin (HCC)- Primary Acquired hypothyroidism Unspecified hypothyroidism documented in this encounter [facility] note* Diagnosis Encounter for post surgical wound check- Primary documented in this encounter [facility] note* Diagnosis Acute otitis media, right- Primary Unspecified otitis media Sinus congestion Other diseases of nasal cavity and sinuses documented in this encounter [facility] course Narrative No data available for this section [facility] Hospital Discharge instructions No data available for this section [facility] Progress note No data available for this section [facility] Reason for referral (narrative)* Diagnostic Procedure Only (Routine) - Authorized Specialty Diagnoses / Procedures Referred By Contac t Referred To Contact [facility] Diagnoses Poorly controlled diabetes mellitus (HCC) Insulin controlled gestational diabetes mellitus (GDM) in first trimester with history of section, antepartum Hypothyroidism affecting in first trimester 12 weeks gestation of Procedures OBSTETRIC ULTRASOUND WHI US PREG UTERUS AFTER 1ST TRIMEST GESTATION Juan David De Leon MD [address] [place] [address] [address] Referral ID Status Reason Start Date Expiration Date Visits Requested Visits Authorized [id number] Authorized Auto-Generat ed Referral 08/03/2024 1 1 [facility] for referral (narrative)* Outpatient Procedure (Routine) - Pending Review Specialty Diagnoses / Procedures Referred By Contac t Referred To Contact [facility] Diagnoses Poorly controlled diabetes mellitus (HCC) High-risk in second trimester Procedures NON-STRESS TEST NON-STRESS TEST Juan David De Leon MD [address] [place] [address] [facility] [address] [place] [address] Referral ID Status Reason Start Date Expiration Date Visits Requested Visits Authorized [id number] Pending Review Auto-Generat ed Referral 11/20/2023 11/19/2024 1 1 * Diagnostic Procedure Only (Routine) - Pending Review Specialty Diagnoses / Procedures Referred By Contac t Referred To Contact [facility] Diagnoses Poorly controlled diabetes mellitus (HCC) High-risk in second trimester Procedures BIOPHYSICAL PROFILE US WHI BIOPHYSICAL PROFILE NON-STRESS TESTING Juan David De Leon MD [address] [place] [address] [facility] [address] [place] [address] Referral ID Status Reason Start Date Expiration Date Visits Requested Visits Authorized [id number] Pending Review Auto-Generat ed Referral 11/20/2023 11/19/2024 10 [facility] Outpatient Procedure (Routine) - Authorized Specialty Diagnoses / Procedures Referred By Contac t Referred To Contact [facility] Diagnoses with type 2 diabetes mellitus in second trimester High-risk in second trimester High-risk in first trimester Procedures NON-STRESS TEST NON-STRESS TEST Mey Almanzar MD [address] [place] [address] [address] Referral ID Status Reason Start Date Expiration Date Visits Requested Visits Authorized [id number] Authorized Auto-Generat ed Referral 12/03/2023 12/02/2024 8 1 * Diagnostic Procedure Only (Routine) - Authorized Specialty Diagnoses / Procedures Referred By Contac t [facility] Diagnoses with type 2 diabetes mellitus in second trimester High-risk in second trimester High-risk in first trimester Procedures BIOPHYSICAL PROFILE US WHI BIOPHYSICAL PROFILE NON-STRESS TESTING Mey Almanzar MD [address] [place] [address] [address] Referral ID Status Reason Start Date Expiration Date Visits Requested Visits Authorized [id number] Authorized Auto-Generat ed Referral 12/03/2023 12/02/2024 10 1 [facility] for referral (narrative)* Diagnostic Procedure Only (Routine) - Pending Review Specialty Diagnoses / Procedures Referred By Contac t Referred To Contact [facility] Diagnoses with type 2 diabetes mellitus in second trimester Procedures OBSTETRIC ULTRASOUND WHI US PREG UTERUS AFTER 1ST TRIMEST GESTATION Trupti Esteban MD [address] [place] [address] [address] Referral ID Status Reason Start Date Expiration Date Visits Requested Visits Authorized [id number] Pending Review Auto-Generat ed Referral 12/15/2023 12/14/2024 1 1 [facility] for visit Narrative* Diagnostic Procedure Only (Routine) - Closed Specialty Diagnoses / Procedures Referred By Valorieac t Referred To Contact [facility] Diagnoses with type 2 diabetes mellitus in second trimester Procedures OBSTETRIC ULTRASOUND WHI US PREG UTERUS AFTER 1ST TRIMEST GESTATION Trupti Esteban MD [address] [place] [address] [address] Referral ID Status Reason Start Date Expiration Date V isits Requested Visits Authorized [id number] Closed Auto-Generate d Referral 12/22/2023 10/04/2024 1 1 [facility] note* ELI Berger: PERFORM Event Display: Patient Summary Documents Authored Date: [id number] [facility] Advance Directives Documents on File Type Date Recorded 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 [address] Referral ID Status Reason Start Date Expiration Date Visits Requested Visits Authorized [id number] Authorized PCP Requested Referral 01/12/2024 01/11/2025 1 1 Specialty Diagnoses / Procedures Referred By Contac t Referred To Contact Mey Almanzar MD [address] [place] [address] Referral ID Status Reason Start Date Expiration Date Visits Re quested Visits Authorized [id number] Closed 1 1 Specialty Diagnoses / Procedures Referred By Marisol bergeron Referred To Contact Endocrinology Diagnoses Insulin controlled gestational diabetes mellitus (GDM) in first trimester Procedures CONSULT TO ENDOCRINOLOGY OFFICE/OUTPATIENT [facility] 60-74 MINUTES Juan David De Leon MD [address] [place] [address] Referral ID Status Reason Start Date Expiration Date Visits Requested Visits Authorized [id number] Authorized PCP Requested Referral 07/01/2023 06/30/2024 1 1 Health Concerns Problem Noted Date Diagnosed Date [facility] Education - [place]ON 07/06/2023 Education - [place] 07/06/2023 Problem Noted Date Diagnosed Date [facility] CC Education - COMMON 07/06/2023 Education - [place] 07/06/2023 Problem Noted Date Diagnosed Date [facility] CC Education - COMMON 07/06/2023 Education - [place] 07/06/2023 Problem Noted Date Diagnosed Date [facility] CC Education - COMMON 07/06/2023 Education - [place] 07/06/2023 Problem Noted Date Diagnosed Date [facility] CC Education - COMMON 07/06/2023 Education - [place] 07/06/2023 Problem Noted Date Diagnosed Date [facility] CC Education - COMMON 07/06/2023 Education - [place] 07/06/2023 Problem Noted Date Diagnosed Date [facility] CC Education - COMMON 07/06/2023 Education - [place] 07/06/2023 Problem Noted Date Diagnosed Date [facility] CC Education - COMMON 07/06/2023 Education - [place] 07/06/2023 Problem Noted Date Diagnosed Date [facility] CC Education - COMMON 07/06/2023 Education - [place] 07/06/2023 Problem Noted Date Diagnosed Date [facility] CC Education - COMMON 07/06/2023 Education - [place] 07/06/2023 Problem Noted Date Diagnosed Date [facility] CC Education - COMMON 07/06/2023 Education - [place] 07/06/2023 Problem Noted Date Diagnosed Date [facility] CC Education - COMMON 07/06/2023 Education - [place] 07/06/2023 Problem Noted Date Diagnosed Date [facility] CC Education - COMMON 07/06/2023 Education - [place] 07/06/2023 Problem Noted Date Diagnosed Date [facility] CC Education - [place]ON 07/06/2023 Education - [place] 07/06/2023 Problem Noted Date Diagnosed Date [facility] CC Education - [place]ON 07/06/2023 Education - [place] 07/06/2023 Problem Noted Date Diagnosed Date [facility] CC Education - [place]ON 07/06/2023 Education - [place] 07/06/2023 Problem Noted Date Diagnosed Date [facility] CC Education - [place]ON 07/06/2023 Education - [place] 07/06/2023 Problem Noted Date Diagnosed Date [facility] CC Education - [place]ON 07/06/2023 Education - [place] 07/06/2023 Problem Noted Date Diagnosed Date [facility] CC Education - [place]ON 07/06/2023 Education - [place] 07/06/2023 Active Problems Noted Date Diagnosed Date [facility] CC Education - [place] 07/06/2023 Education - [place] 07/06/2023 Active Problems Noted Date Diagnosed Date [facility] CC Education - [place]ON 07/06/2023 Education - [place] 07/06/2023 Active Problems Noted Date Diagnosed Date [facility] CC Education - [place] 07/06/2023 Education - [place] 07/06/2023 Active Problems Noted Date Diagnosed Date [facility] CC Education - [place] 07/06/2023 Education - [place] 07/06/2023 Active Problems Noted Date Diagnosed Date [facility] CC Education - [place] 07/06/2023 Education - [place] 07/06/2023 Active Problems Noted Date Diagnosed Date [facility] CC Education - [place] 07/06/2023 Education - [place] 07/06/2023 Active Problems Noted Date Diagnosed Date [facility] CC Education - [place] 07/06/2023 Education - [place] 07/06/2023 Active Problems Noted Date Diagnosed Date [facility] CC Education - [place] 07/06/2023 Education - [place] 07/06/2023 Active Problems Noted Date Diagnosed Date [facility] CC Education - [place] 07/06/2023 Education - [place] 07/06/2023 Active Problems Noted Date Diagnosed Date [facility] CC Education - [place] 07/06/2023 Education - [place] 07/06/2023 Active Problems Noted Date Diagnosed Date [facility] CC Education - [facility] 07/06/2023 Education - [place] 07/06/2023 Active Problems Noted Date Diagnosed Date [facility] CC Education - [place] 07/06/2023 Education - [place] 07/06/2023 Active Problems Noted Date Diagnosed Date [place] Mri Manager 01/08/2024 Active Problems Noted Date Diagnosed Date [place] Mri Manager 01/08/2024 Summary Purpose Family History No Family History Records Found Additional Source Comments Care Team (unrecognized sect ion and content) Ballistics Expert Forensic Relationship Specialty Start Date End Date Baltes, Pietro, HEREDITARY CANCER PROGRAM COORDINATOR [address] [place] [address] PCP - General Family Medicine 03/13/23 Ballistics Expert Forensic Relationship Specialty Start Date End Date Baltes Pietro, HEREDITARY CANCER PROGRAM COORDINATOR [address] [place] [address] PCP - General Family Medicine 03/13/23 Ballistics Expert Forensic Relationship Specialty Start Date End Date BalJennifer gardinerian, HEREDITARY CANCER PROGRAM COORDINATOR [address] [place] [address] PCP - General Family Medicine 03/13/23 Ballistics Expert Forensic Relationship Specialty Start Date End Date Baltes, Pietro, HEREDITARY CANCER PROGRAM COORDINATOR [address] [place] [address] PCP - General Family Medicine 03/13/23 Ballistics Expert Forensic Relationship Specialty Start Date End Date Baltes, Pietro, HEREDITARY CANCER PROGRAM COORDINATOR [address] [place] [address] PCP - General Family Medicine 03/13/23 Ballistics Expert Forensic Relationship Specialty Start Date End Date Baltes, Pietro, HEREDITARY CANCER PROGRAM COORDINATOR [address] [place] [address] PCP - General Family Medicine 03/13/23 Ballistics Expert Forensic Relationship Specialty Start Date End Date Baltes, Pietro, HEREDITARY CANCER PROGRAM COORDINATOR [address] [place] [address] PCP - General Family Medicine 03/13/23 Ballistics Expert Forensic Relationship Specialty Start Date End Date Baltes, Pietro, HEREDITARY CANCER PROGRAM COORDINATOR [address] [place] [address] PCP - General Family Medicine 03/13/23 Ballistics Expert Forensic Relationship Specialty Start Date End Date Baltes, Pietro, HEREDITARY CANCER PROGRAM COORDINATOR [address] [facility] [place] [address] PCP - General Family Medicine 03/13/23 Ballistics Expert Forensic Relationship Specialty Start Date End Date Pietro Johnson, HEREDITARY CANCER PROGRAM COORDINATOR [address] [place] [address] PCP - General Family Medicine 03/13/23 Ballistics Expert Forensic Relationship Specialty Start Date End Date Pietro Johnson, HEREDITARY CANCER PROGRAM COORDINATOR [address] [place] [address] PCP - General Family Medicine 03/13/23 Ballistics Expert Forensic Relationship Specialty Start Date End Date Jennifer Johnsonian, HEREDITARY CANCER PROGRAM COORDINATOR [address] [place] [address] PCP - General Family Medicine 03/13/23 Ballistics Expert Forensic Relationship Specialty Start Date End Date Pietro Johnson, HEREDITARY CANCER PROGRAM COORDINATOR [address] [place] [address] PCP - General Family Medicine 03/13/23 Ballistics Expert Forensic Relationship Specialty Start Date End Date Pietro Johnson, HEREDITARY CANCER PROGRAM COORDINATOR [address] [place] [address] PCP - General Family Medicine 03/13/23 Ballistics Expert Forensic Relationship Specialty Start Date End Date Jennifer Johnsonian, HEREDITARY CANCER PROGRAM COORDINATOR [address] [place] [address] PCP - General Family Medicine 03/13/23 Ballistics Expert Forensic Relationship Specialty Start Date End Date Pietro Johnson, HEREDITARY CANCER PROGRAM COORDINATOR [address] [place] [address] PCP - General Family Medicine 03/13/23 Ballistics Expert Forensic Relationship Specialty Start Date End Date Jennifer Johnsonian, HEREDITARY CANCER PROGRAM COORDINATOR [address] [facility] [place] [address] PCP - General Family Medicine 03/13/23 Ballistics Expert Forensic Relationship Specialty Start Date End Date Jennifer Johnsonian, HEREDITARY CANCER PROGRAM COORDINATOR [address] [place] [address] PCP - General Family Medicine 03/13/23 Ballistics Expert Forensic Relationship Specialty Start Date End Date Jennifer Johnsonian, HEREDITARY CANCER PROGRAM COORDINATOR [address] [place] [address] PCP - General Family Medicine 03/13/23 Ballistics Expert Forensic Relationship Specialty Start Date End Date Baltes Pietro, HEREDITARY CANCER PROGRAM COORDINATOR [address] [facility] [place] [address] PCP - General Family Medicine 03/13/23 Ballistics Expert Forensic Relationship Specialty Start Date End Date Jennifer Johnsonian, HEREDITARY CANCER PROGRAM COORDINATOR [address] [facility] [place] [address] PCP - General Family Medicine 03/13/23 Ballistics Expert Forensic Relationship Specialty Start Date End Date Jennifer Johnsonian, HEREDITARY CANCER PROGRAM COORDINATOR [address] [facility] [place] [address] PCP - General Family Medicine 03/13/23 Ballistics Expert Forensic Relationship Specialty Start Date End Date BaltesJenniferPietro, HEREDITARY CANCER PROGRAM COORDINATOR [address] [place] [address] PCP - General Family Medicine 03/13/23 Ballistics Expert Forensic Relationship Specialty Start Date End Date Jennifer Johnsonian, HEREDITARY CANCER PROGRAM COORDINATOR [address] [place] [address] PCP - General Family Medicine 03/13/23 Ballistics Expert Forensic Relationship Specialty Start Date End Date Jennifer Johnsonian, HEREDITARY CANCER PROGRAM COORDINATOR [address] [facility] [place] [address] PCP - General Family Medicine 03/13/23 Ballistics Expert Forensic Relationship Specialty Start Date End Date Jennifer Johnsonian, HEREDITARY CANCER PROGRAM COORDINATOR [address] [place] [address] PCP - General Family Medicine 03/13/23 Ballistics Expert Forensic Relationship Specialty Start Date End Date Jennifer Johnsonian, HEREDITARY CANCER PROGRAM COORDINATOR [address] [place] [address] PCP - General Family Medicine 03/13/23 Ballistics Expert Forensic Relationship Specialty Start Date End Date Jennifer Johnsonian, HEREDITARY CANCER PROGRAM COORDINATOR [address] [facility] [place] [address] PCP - General Family Medicine 03/13/23 Ballistics Expert Forensic Relationship Specialty Start Date End Date BaltesJenniferPietro, HEREDITARY CANCER PROGRAM COORDINATOR [address] [place] [address] PCP - General Family Medicine 03/13/23 Ballistics Expert Forensic Relationship Specialty Start Date End Date BaltesJenniferPietro, HEREDITARY CANCER PROGRAM COORDINATOR [address] [place] [address] PCP - General Family Medicine 03/13/23 Ballistics Expert Forensic Relationship Specialty Start Date End Date Pietro Johnson, NEREIDA [address] [place] [address] PCP - General Family Medicine 03/13/23 Ballistics Expert Forensic Relationship Specialty Start Date End Date Pietro Johnson, HEREDITARY CANCER PROGRAM COORDINATOR [address] [place] [address] PCP - General Family Medicine 03/13/23 Ballistics Expert Forensic Relationship Specialty Start Date End Date Pietro Johnson, NEREIDA [address] [place] [address] PCP - General Family Medicine 03/13/23 Ballistics Expert Forensic Relationship Specialty Start Date End Date Pietro Johnson, HEREDITARY CANCER PROGRAM COORDINATOR [address] [place] [address] PCP - General Family Medicine 03/13/23 Ballistics Expert Forensic Relationship Specialty Start Date End Date Pietro Johnson, HEREDITARY CANCER PROGRAM COORDINATOR [address] [place] [address] PCP - General Family Medicine 03/13/23 Ballistics Expert Forensic Relationship Specialty Start Date End Date Pietro Johnson, HEREDITARY CANCER PROGRAM COORDINATOR [address] [place] [address] PCP - General Family Medicine 03/13/23 Palomo Isaac RN Analytical Research Program Manager Medicine 12/29/23 Ballistics Expert Forensic Relationship Specialty Start Date End Date Pietro Johnson, HEREDITARY CANCER PROGRAM COORDINATOR [address] [place] [address] PCP - General Family Medicine 03/13/23 Palomo Isaac RN Analytical Research Program Manager Medicine 12/29/23 Ballistics Expert Forensic Relationship Specialty Start Date End Date Pietro Johnson, HEREDITARY CANCER PROGRAM COORDINATOR [address] [place] [address] PCP - General Family Medicine 03/13/23 Palomo Isaac RN Analytical Research Program Manager Medicine 12/29/23 Ballistics Expert Forensic Relationship Specialty Start Date End Date Pietro Johnson, HEREDITARY CANCER PROGRAM COORDINATOR [address] [place] [address] PCP - General Family Medicine 03/13/23 Palomo Isaac RN Analytical Research Program Manager Medicine 12/29/23 Ballistics Expert Forensic Relationship Specialty Start Date End Date Pietro Johnson, HEREDITARY CANCER PROGRAM COORDINATOR [address] [place] [address] PCP - General Family Medicine 03/13/23 Palomo Isaac, sales development specialistAnalytical Research Program Manager Medicine 12/29/23 Ballistics Expert Forensic Relationship Specialty Start Date End Date Pietro Johnson CNP [address] [place] [address] PCP - General Family Medicine 03/13/23 Palomo Isaac RN Analytical Research Program Manager Medicine 12/29/23 Ballistics Expert Forensic Relationship Specialty Start Date End Date Pietro Johnson, NEREIDA [address] [place] [address] PCP - General Family Medicine 03/13/23 Palomo Isaac RN Analytical Research Program Manager Medicine 12/29/23 Ballistics Expert Forensic Relationship Specialty Start Date End Date Pietro Johnson, NEREIDA [address] [place] [address] PCP - General Family Medicine 03/13/23 Ballistics Expert Forensic Relationship Specialty Start Date End Date Pietro Johnson CNP [address] [place] [address] PCP - General Family Medicine 03/13/23 Ballistics Expert Forensic Relationship Specialty Start Date End Date Pietro Johnson CNP [address] [place] [address] PCP - General Family Medicine 03/13/23 Ballistics Expert Forensic Relationship Specialty Start Date End Date Pietro Johnson CNP [address] [place] [address] PCP - General Family Medicine 03/13/23 Ballistics Expert Forensic Relationship Specialty Start Date End Date Pietro Johnson, NEREIDA [address] [place] [address] PCP - General Family Medicine 03/13/23 Ballistics Expert Forensic Relationship Specialty Start Date End Date RonaldoabdifatahPietro, NEREIDA [address] [place] [address] PCP - General Family Medicine 03/13/23 Palomo Isaac RN Analytical Research Program Manager Medicine 12/29/2301/04/24 Ballistics Expert Forensic Relationship Specialty Start Date End Date Pietro Johnson CNP PCP - General Family Medicine 03/13/23 Ballistics Expert Forensic Relationship Specialty Start Date End Date Pietro Johnson CNP PCP - General Family Medicine 03/13/23 Ballistics Expert Forensic Relationship Specialty Start Date End Date Pietro Johnson CNP PCP - General Family Medicine 03/13/23 Source Comments (unrecognize d section and content) In the event this informatio n is protected by the [facility] Confidentiality of Alcohol and Drug Abuse Patient Records regulations: The Federal rules restrict any use of the information to criminally investigate or prosecute any alcohol or drug abuse patient.[facility] the event this information is protected by the Federal Confidentiality of Alcohol and Drug Abuse Patient Records regulations: The Federal rules restrict any use of the information to criminally investigate or prosecute any alcohol or drug abuse patient.[facility] the event this information is protected by the Federal Confidentiality of Alcohol and Drug Abuse Patient Records regulations: The Federal rules restrict any use of the information to criminally investigate or prosecute any alcohol or drug abuse patient.[facility] the event this information is protected by the Federal Confidentiality of Alcohol and Drug Abuse Patient Records regulations: The Federal rules restrict any use of the information to criminally investigate or prosecute any alcohol or drug abuse patient.[facility] the event this information is protected by the Federal Confidentiality of Alcohol and Drug Abuse Patient Records regulations: The Federal rules restrict any use of the information to criminally investigate or prosecute any alcohol or drug abuse patient.[facility] the event this information is protected by the Federal Confidentiality of Alcohol and Drug Abuse Patient Records regulations: The Federal rules restrict any use of the information to criminally investigate or prosecute any alcohol or drug abuse patient.[facility] the event this information is protected by the Federal Confidentiality of Alcohol and Drug Abuse Patient Records regulations: The Federal rules restrict any use of the information to criminally investigate or prosecute any alcohol or drug abuse patient.[facility] Hospital[facility] the event this information is protected by the Federal Confidentiality of Alcohol and Drug Abuse Patient Records regulations: The Federal rules restrict any use of the information to criminally investigate or prosecute any alcohol or drug abuse patient.[facility] HospitalIn the event this information is protected by the Federal Confidentiality of Alcohol and Drug Abuse Patient Records regulations: The Federal rules restrict any use of the information to criminally investigate or prosecute any alcohol or drug abuse patient.[facility] HospitalIn the event this information is protected by the Federal Confidentiality of Alcohol and Drug Abuse Patient Records regulations: The Federal rules restrict any use of the information to criminally investigate or prosecute any alcohol or drug abuse patient.[facility] HospitalIn the event this information is protected by the Federal Confidentiality of Alcohol and Drug Abuse Patient Records regulations: The Federal rules restrict any use of the information to criminally investigate or prosecute any alcohol or drug abuse patient.[facility] HospitalIn the event this information is protected by the Federal Confidentiality of Alcohol and Drug Abuse Patient Records regulations: The Federal rules restrict any use of the information to criminally investigate or prosecute any alcohol or drug abuse patient.[facility] HospitalIn the event this information is protected by the Federal Confidentiality of Alcohol and Drug Abuse Patient Records regulations: The Federal rules restrict any use of the information to criminally investigate or prosecute any alcohol or drug abuse patient.[facility] HospitalIn the event this information is protected by the Federal Confidentiality of Alcohol and Drug Abuse Patient Records regulations: The Federal rules restrict any use of the information to criminally investigate or prosecute any alcohol or drug abuse patient.[facility] HospitalIn the event this information is protected by the Federal Confidentiality of Alcohol and Drug Abuse Patient Records regulations: The Federal rules restrict any use of the information to criminally investigate or prosecute any alcohol or drug abuse patient.[facility] HospitalIn the event this information is protected by the Federal Confidentiality of Alcohol and Drug Abuse Patient Records regulations: The Federal rules restrict any use of the information to criminally investigate or prosecute any alcohol or drug abuse patient.[facility] HospitalIn the event this information is protected by the Federal Confidentiality of Alcohol and Drug Abuse Patient Records regulations: The Federal rules restrict any use of the information to criminally investigate or prosecute any alcohol or drug abuse patient.[facility] HospitalIn the event this information is protected by the Federal Confidentiality of Alcohol and Drug Abuse Patient Records regulations: The Federal rules restrict any use of the information to criminally investigate or prosecute any alcohol or drug abuse patient.[facility] HospitalIn the event this information is protected by the Federal Confidentiality of Alcohol and Drug Abuse Patient Records regulations: The Federal rules restrict any use of the information to criminally investigate or prosecute any alcohol or drug abuse patient.[facility] HospitalIn the event this information is protected by the Federal Confidentiality of Alcohol and Drug Abuse Patient Records regulations: The Federal rules restrict any use of the information to criminally investigate or prosecute any alcohol or drug abuse patient.[facility] HospitalIn the event this information is protected by the Federal Confidentiality of Alcohol and Drug Abuse Patient Records regulations: The Federal rules restrict any use of the information to criminally investigate or prosecute any alcohol or drug abuse patient.[facility] HospitalIn the event this information is protected by the Federal Confidentiality of Alcohol and Drug Abuse Patient Records regulations: The Federal rules restrict any use of the information to criminally investigate or prosecute any alcohol or drug abuse patient.[facility] HospitalIn the event this information is protected by the Federal Confidentiality of Alcohol and Drug Abuse Patient Records regulations: The Federal rules restrict any use of the information to criminally investigate or prosecute any alcohol or drug abuse patient.[facility] HospitalIn the event this information is protected by the Federal Confidentiality of Alcohol and Drug Abuse Patient Records regulations: The Federal rules restrict any use of the information to criminally investigate or prosecute any alcohol or drug abuse patient.[facility] HospitalIn the event this information is protected by the Federal Confidentiality of Alcohol and Drug Abuse Patient Records regulations: The Federal rules restrict any use of the information to criminally investigate or prosecute any alcohol or drug abuse patient.[facility] HospitalIn the event this information is protected by the Federal Confidentiality of Alcohol and Drug Abuse Patient Records regulations: The Federal rules restrict any use of the information to criminally investigate or prosecute any alcohol or drug abuse patient.[facility] HospitalIn the event this information is protected by the Federal Confidentiality of Alcohol and Drug Abuse Patient Records regulations: The Federal rules restrict any use of the information to criminally investigate or prosecute any alcohol or drug abuse patient.[facility] HospitalIn the event this information is protected by the Federal Confidentiality of Alcohol and Drug Abuse Patient Records regulations: The Federal rules restrict any use of the information to criminally investigate or prosecute any alcohol or drug abuse patient.[facility] HospitalIn the event this information is protected by the Federal Confidentiality of Alcohol and Drug Abuse Patient Records regulations: The Federal rules restrict any use of the information to criminally investigate or prosecute any alcohol or drug abuse patient.[facility] HospitalIn the event this information is protected by the Federal Confidentiality of Alcohol and Drug Abuse Patient Records regulations: The Federal rules restrict any use of the information to criminally investigate or prosecute any alcohol or drug abuse patient.[facility] HospitalIn the event this information is protected by the Federal Confidentiality of Alcohol and Drug Abuse Patient Records regulations: The Federal rules restrict any use of the information to criminally investigate or prosecute any alcohol or drug abuse patient.[facility] HospitalIn the event this information is protected by the Federal Confidentiality of Alcohol and Drug Abuse Patient Records regulations: The Federal rules restrict any use of the information to criminally investigate or prosecute any alcohol or drug abuse patient.[facility] HospitalIn the event this information is protected by the Federal Confidentiality of Alcohol and Drug Abuse Patient Records regulations: The Federal rules restrict any use of the information to criminally investigate or prosecute any alcohol or drug abuse patient.[facility] HospitalIn the event this information is protected by the Federal Confidentiality of Alcohol and Drug Abuse Patient Records regulations: The Federal rules restrict any use of the information to criminally investigate or prosecute any alcohol or drug abuse patient.[facility] HospitalIn the event this information is protected by the Federal Confidentiality of Alcohol and Drug Abuse Patient Records regulations: The Federal rules restrict any use of the information to criminally investigate or prosecute any alcohol or drug abuse patient.[facility] the event this information is protected by the Federal Confidentiality of Alcohol and Drug Abuse Patient Records regulations: The Federal rules restrict any use of the information to criminally investigate or prosecute any alcohol or drug abuse patient.[facility] HospitalIn the event this information is protected by the Federal Confidentiality of Alcohol and Drug Abuse Patient Records regulations: The Federal rules restrict any use of the information to criminally investigate or prosecute any alcohol or drug abuse patient.[facility] HospitalIn the event this information is protected by the Federal Confidentiality of Alcohol and Drug Abuse Patient Records regulations: The Federal rules restrict any use of the information to criminally investigate or prosecute any alcohol or drug abuse patient.[facility]In the event this information is protected by the Federal Confidentiality of Alcohol and Drug Abuse Patient Records regulations: The Federal rules restrict any use of the information to criminally investigate or prosecute any alcohol or drug abuse patient.[facility] HospitalIn the event this information is protected by the Federal Confidentiality of Alcohol and Drug Abuse Patient Records regulations: The Federal rules restrict any use of the information to criminally investigate or prosecute any alcohol or drug abuse patient.[facility] HospitalIn the event this information is protected by the Federal Confidentiality of Alcohol and Drug Abuse Patient Records regulations: The Federal rules restrict any use of the information to criminally investigate or prosecute any alcohol or drug abuse patient.[facility] HospitalIn the event this information is protected by the Federal Confidentiality of Alcohol and Drug Abuse Patient Records regulations: The Federal rules restrict any use of the information to criminally investigate or prosecute any alcohol or drug abuse patient.[facility] HospitalIn the event this information is protected by the Federal Confidentiality of Alcohol and Drug Abuse Patient Records regulations: The Federal rules restrict any use of the information to criminally investigate or prosecute any alcohol or drug abuse patient.[facility] HospitalIn the event this information is protected by the Federal Confidentiality of Alcohol and Drug Abuse Patient Records regulations: The Federal rules restrict any use of the information to criminally investigate or prosecute any alcohol or drug abuse patient.[facility] HospitalIn the event this information is protected by the Federal Confidentiality of Alcohol and Drug Abuse Patient Records regulations: The Federal rules restrict any use of the information to criminally investigate or prosecute any alcohol or drug abuse patient.[facility] HospitalIn the event this information is protected by the Federal Confidentiality of Alcohol and Drug Abuse Patient Records regulations: The Federal rules restrict any use of the information to criminally investigate or prosecute any alcohol or drug abuse patient.[facility] HospitalIn the event this information is protected by the Federal Confidentiality of Alcohol and Drug Abuse Patient Records regulations: The Federal rules restrict any use of the information to criminally investigate or prosecute any alcohol or drug abuse patient.[facility] HospitalIn the event this information is protected by the Federal Confidentiality of Alcohol and Drug Abuse Patient Records regulations: The Federal rules restrict any use of the information to criminally investigate or prosecute any alcohol or drug abuse patient.[facility] HospitalIn the event this information is protected by the Federal Confidentiality of Alcohol and Drug Abuse Patient Records regulations: The Federal rules restrict any use of the information to criminally investigate or prosecute any alcohol or drug abuse patient.[facility] HospitalIn the event this information is protected by the Federal Confidentiality of Alcohol and Drug Abuse Patient Records regulations: The Federal rules restrict any use of the information to criminally investigate or prosecute any alcohol or drug abuse patient.[facility] HospitalIn the event this information is protected by the Federal Confidentiality of Alcohol and Drug Abuse Patient Records regulations: The Federal rules restrict any use of the information to criminally investigate or prosecute any alcohol or drug abuse patient.[facility] HospitalIn the event this information is protected by the Federal Confidentiality of Alcohol and Drug Abuse Patient Records regulations: The Federal rules restrict any use of the information to criminally investigate or prosecute any alcohol or drug abuse patient.[facility] HospitalIn the event this information is protected by the Federal Confidentiality of Alcohol and Drug Abuse Patient Records regulations: The Federal rules restrict any use of the information to criminally investigate or prosecute any alcohol or drug abuse patient.[facility] HospitalIn the event this information is protected by the Federal Confidentiality of Alcohol and Drug Abuse Patient Records regulations: The Federal rules restrict any use of the information to criminally investigate or prosecute any alcohol or drug abuse patient.[facility] HospitalIn the event this information is protected by the Federal Confidentiality of Alcohol and Drug Abuse Patient Records regulations: The Federal rules restrict any use of the information to criminally investigate or prosecute any alcohol or drug abuse patient.[facility] HospitalIn the event this information is protected by the Federal Confidentiality of Alcohol and Drug Abuse Patient Records regulations: The Federal rules restrict any use of the information to criminally investigate or prosecute any alcohol or drug abuse patient.[facility] HospitalIn the event this information is protected by the Federal Confidentiality of Alcohol and Drug Abuse Patient Records regulations: The Federal rules restrict any use of the information to criminally investigate or prosecute any alcohol or drug abuse patient.[facility] HospitalIn the event this information is protected by the Federal Confidentiality of Alcohol and Drug Abuse Patient Records regulations: The Federal rules restrict any use of the information to criminally investigate or prosecute any alcohol or drug abuse patient.[facility] HospitalIn the event this information is protected by the Federal Confidentiality of Alcohol and Drug Abuse Patient Records regulations: The Federal rules restrict any use of the information to criminally investigate or prosecute any alcohol or drug abuse patient.[facility] HospitalIn the event this information is protected by the Federal Confidentiality of Alcohol and Drug Abuse Patient Records regulations: The Federal rules restrict any use of the information to criminally investigate or prosecute any alcohol or drug abuse patient.[facility] HospitalIn the event this information is protected by the Federal Confidentiality of Alcohol and Drug Abuse Patient Records regulations: The Federal rules restrict any use of the information to criminally investigate or prosecute any alcohol or drug abuse patient.[facility] HospitalIn the event this information is protected by the Federal Confidentiality of Alcohol and Drug Abuse Patient Records regulations: The Federal rules restrict any use of the information to criminally investigate or prosecute any alcohol or drug abuse patient.[facility] HospitalIn the event this information is protected by the Federal Confidentiality of Alcohol and Drug Abuse Patient Records regulations: The Federal rules restrict any use of the information to criminally investigate or prosecute any alcohol or drug abuse patient.[facility] HospitalIn the event this information is protected by the Federal Confidentiality of Alcohol and Drug Abuse Patient Records regulations: The Federal rules restrict any use of the information to criminally investigate or prosecute any alcohol or drug abuse patient.[facility] HospitalIn the event this information is protected by the Federal Confidentiality of Alcohol and Drug Abuse Patient Records regulations: The Federal rules restrict any use of the information to criminally investigate or prosecute any alcohol or drug abuse patient.[facility] HospitalIn the event this information is protected by the Federal Confidentiality of Alcohol and Drug Abuse Patient Records regulations: The Federal rules restrict any use of the information to criminally investigate or prosecute any alcohol or drug abuse patient.[facility] HospitalIn the event this information is protected by the Federal Confidentiality of Alcohol and Drug Abuse Patient Records regulations: The Federal rules restrict any use of the information to criminally investigate or prosecute any alcohol or drug abuse patient.[facility] HospitalIn the event this information is protected by the Federal Confidentiality of Alcohol and Drug Abuse Patient Records regulations: The Federal rules restrict any use of the information to criminally investigate or prosecute any alcohol or drug abuse patient.[facility] HospitalIn the event this information is protected by the Federal Confidentiality of Alcohol and Drug Abuse Patient Records regulations: The Federal rules restrict any use of the information to criminally investigate or prosecute any alcohol or drug abuse patient.[facility] HospitalIn the event this information is protected by the Federal Confidentiality of Alcohol and Drug Abuse Patient Records regulations: The Federal rules restrict any use of the information to criminally investigate or prosecute any alcohol or drug abuse patient.[facility] HospitalIn the event this information is protected by the Federal Confidentiality of Alcohol and Drug Abuse Patient Records regulations: The Federal rules restrict any use of the information to criminally investigate or prosecute any alcohol or drug abuse patient.[facility] HospitalIn the event this information is protected by the Federal Confidentiality of Alcohol and Drug Abuse Patient Records regulations: The Federal rules restrict any use of the information to criminally investigate or prosecute any alcohol or drug abuse patient.[facility] HospitalIn the event this information is protected by the Federal Confidentiality of Alcohol and Drug Abuse Patient Records regulations: The Federal rules restrict any use of the information to criminally investigate or prosecute any alcohol or drug abuse patient.[facility] HospitalIn the event this information is protected by the Federal Confidentiality of Alcohol and Drug Abuse Patient Records regulations: The Federal rules restrict any use of the information to criminally investigate or prosecute any alcohol or drug abuse patient.[facility] HospitalIn the event this information is protected by the Federal Confidentiality of Alcohol and Drug Abuse Patient Records regulations: The Federal rules restrict any use of the information to criminally investigate or prosecute any alcohol or drug abuse patient.[facility] HospitalIn the event this information is protected by the Federal Confidentiality of Alcohol and Drug Abuse Patient Records regulations: The Federal rules restrict any use of the information to criminally investigate or prosecute any alcohol or drug abuse patient.[facility] HospitalIn the event this information is protected by the Federal Confidentiality of Alcohol and Drug Abuse Patient Records regulations: The Federal rules restrict any use of the information to criminally investigate or prosecute any alcohol or drug abuse patient.[facility] HospitalIn the event this information is protected by the Federal Confidentiality of Alcohol and Drug Abuse Patient Records regulations: The Federal rules restrict any use of the information to criminally investigate or prosecute any alcohol or drug abuse patient.[facility] HospitalIn the event this information is protected by the Federal Confidentiality of Alcohol and Drug Abuse Patient Records regulations: The Federal rules restrict any use of the information to criminally investigate or prosecute any alcohol or drug abuse patient.[facility] HospitalIn the event this information is protected by the Federal Confidentiality of Alcohol and Drug Abuse Patient Records regulations: The Federal rules restrict any use of the information to criminally investigate or prosecute any alcohol or drug abuse patient.[facility] HospitalIn the event this information is protected by the Federal Confidentiality of Alcohol and Drug Abuse Patient Records regulations: The Federal rules restrict any use of the information to criminally investigate or prosecute any alcohol or drug abuse patient.[facility] HospitalIn the event this information is protected by the Federal Confidentiality of Alcohol and Drug Abuse Patient Records regulations: The Federal rules restrict any use of the information to criminally investigate or prosecute any alcohol or drug abuse patient.[facility] HospitalIn the event this information is protected by the Federal Confidentiality of Alcohol and Drug Abuse Patient Records regulations: The Federal rules restrict any use of the information to criminally investigate or prosecute any alcohol or drug abuse patient.[facility] HospitalIn the event this information is protected by the Federal Confidentiality of Alcohol and Drug Abuse Patient Records regulations: The Federal rules restrict any use of the information to criminally investigate or prosecute any alcohol or drug abuse patient.[facility] HospitalIn the event this information is protected by the Federal Confidentiality of Alcohol and Drug Abuse Patient Records regulations: The Federal rules restrict any use of the information to criminally investigate or prosecute any alcohol or drug abuse patient.[facility] the event this information is protected by the Federal Confidentiality of Alcohol and Drug Abuse Patient Records regulations: The Federal rules restrict any use of the information to criminally investigate or prosecute any alcohol or drug abuse patient.[facility] HospitalIn the event this information is protected by the Federal Confidentiality of Alcohol and Drug Abuse Patient Records regulations: The Federal rules restrict any use of the information to criminally investigate or prosecute any alcohol or drug abuse patient.[facility] HospitalIn the event this information is protected by the Federal Confidentiality of Alcohol and Drug Abuse Patient Records regulations: The Federal rules restrict any use of the information to criminally investigate or prosecute any alcohol or drug abuse patient.[facility]In the event this information is protected by the Federal Confidentiality of Alcohol and Drug Abuse Patient Records regulations: The Federal rules restrict any use of the information to criminally investigate or prosecute any alcohol or drug abuse patient.[facility] HospitalIn the event this information is protected by the Federal Confidentiality of Alcohol and Drug Abuse Patient Records regulations: The Federal rules restrict any use of the information to criminally investigate or prosecute any alcohol or drug abuse patient.[facility] Reason for Visit (unrecogniz ed section and content) Reason Onset Date Comments Refill Request Refill Request 03/18/2022 Reason Comments Ear Problem Bilateral ear pain, runny nose, cough x 3 days Reason Comments Results Reason Comments Vaginal Problem Sores in vaginal are a x1 day Reason Comments Low Back Pain X1 week Reason Comments herpes outbreak Herpes outbreak-star dolly yesterday and feet swelling Reason Comments infected upper lip X 2 days Reason Comments Derm Problem On left neck and bet ween breasts x 1 wk Reason Comments test Reason Comments ED Follow-up Reason Comments high risk Reason Comments PRAF Reason Comments Future Appointment Reason Comments Consult Ordered by Dr Mateo torres Specialty Diagnoses / Procedures Referred By Marisol t Referred To Contact Diagnoses Insulin controlled gestational diabetes mellitus (GDM) in first trimester Supervision of high risk due to social problems, first trimester Poorly controlled diabetes mellitus (HCC) with history of section, antepartum Nausea and vomiting in with uncertain dates in first trimester Hypothyroidism affecting in first trimester Pre-existing type 2 diabetes mellitus during in first trimester Procedures CONSULT TO MATERNAL MEDI OFFICE/OUTPATIENT NEW HIGH MDM 60-74 MINUTES Juan David De Leon MD [address] [place] [address] Referral ID Status Reason Start Date Expiration Date V isits Requested Visits Authorized [id number] Closed PCP Requested Referral Auto-Generated Referral 07/06/2023 07/05/2024 1 1 Reason Comments Follow Up Phone Call Reason Comments Appointment Reason Comments Patient Update Abd Pain Reason Comments Patient Education Assessment Specialty Diagnoses / Procedures Referred By Contac t Referred To Contact Nutrition Diagnoses Insulin controlled gestational diabetes mellitus (GDM) in first trimester Supervision of high risk due to social problems, first trimester Poorly controlled diabetes mellitus (HCC) with history of section, antepartum Nausea and vomiting in with uncertain dates in first trimester Hypothyroidism affecting in first trimester Pre-existing type 2 diabetes mellitus during in first trimester Procedures CONSULT TO NUTRITION THERAPY MEDICAL NUTRITION ASSMT&IVNTJ INDIV EACH 15 [place] MEDICAL NUTRITION ASSMT&IVNTJ INDIV EACH 15 [place] MEDICAL NUTRITION ASSMT&IVNTJ INDIV EACH 15 [place] MEDICAL NUTRITION ASSMT&IVNTJ INDIV EACH 15 [place] Juan David De Leon MD [address] [place] [address] Referral ID Status Reason Start Date Expiration Date V isits Requested Visits Authorized [id number] Closed PCP Requested Referral 07/06/2023 07/05/2024 1 1 Reason Onset Date Comments Care 08/04/2023 Reason Comments Cough 1 week Reason Comments Question (OB Question) Reason Comments Gestational Diabetes Reason Onset Date Comments Care 08/25/2023 Reason Comments US Specialty Diagnoses / Procedures Referred By Marisol t Referred To Contact [facility] Diagnoses Poorly controlled diabetes mellitus (HCC) Insulin controlled gestational diabetes mellitus (GDM) in first trimester with history of section, antepartum Hypothyroidism affecting in first trimester 12 weeks gestation of Procedures OBSTETRIC ULTRASOUND WHI US PREG UTERUS AFTER 1ST TRIMEST GESTATION Juan David De Leon MD [address] [place] [address] [facility] [address] [place] [address] Referral ID Status Reason Start Date Expiration Date V isits Requested Visits Authorized [id number] Closed Auto-Generate d Referral 08/04/2023 08/03/2024 1 1 Reason Onset Date Comments Refill Request 09/13/2023 Reason Onset Date Comments Care 11/18/2023 Specialty Diagnoses / Procedures Referred By Contac t Referred To Contact [facility] Diagnoses with history of section, antepartum Insulin controlled gestational diabetes mellitus (GDM) in first trimester Hypothyroidism affecting in first trimester High-risk in first trimester Maternal obesity syndrome in second trimester BMI 40.0-44.9, adult (HCC) Procedures OBSTETRIC ULTRASOUND WHI US PREG UTERUS AFTER 1ST TRIMEST GESTATION Juan David De Leon MD [address] [place] [address] [facility] [place] [address] Referral ID Status Reason Start Date Expiration Date V isits Requested Visits Authorized [id number] Closed Auto-Generate d Referral 2023 09/07/2024 6 1 Reason Comments Blood Sugar logs Reason Comments Orders Appointment Reason Onset Date Comments Care 12/03/2023 Reason Comments Med Change Request Reason Comments 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 Reason Comments Gestational Diabetes Thyroid Problem Reason Comments US Specialty Diagnoses / Procedures Referred By Contac t Referred To Contact [facility] Diagnoses with type 2 diabetes mellitus in second trimester High-risk in second trimester High-risk in first trimester Procedures BIOPHYSICAL PROFILE US WHI BIOPHYSICAL PROFILE NON-STRESS TESTING Mey Almanzar MD [address] [place] [address] [facility] [address] [place] [address] Referral ID Status Reason Start Date Expiration Date V isits Requested Visits Authorized [id number] Closed Auto-Generate d Referral 12/03/2023 12/02/2024 10 1 Reason Onset Date Comments Care 12/18/2023 Reason Comments HSV Outbreak Reason Onset Date Comments Care 12/22/2023 Specialty Diagnoses / Procedures Referred By Contac t Referred To Contact [facility] Diagnoses Poorly controlled diabetes mellitus (HCC) High-risk in second trimester Procedures BIOPHYSICAL PROFILE US WHI BIOPHYSICAL PROFILE NON-STRESS TESTING Juan David De Leon MD [address] [place] [address] [facility] [address] [place] [address] Referral ID Status Reason Start Date Expiration Date Visits Requested Visits Authorized [id number] Authorized Auto-Generat ed Referral 12/25/2023 10/04/2024 10 10 Reason Comments BG Log Reason Comments Care Plan Care Coordination Specialty Diagnoses / Procedures Referred By Contac t Referred To Contact [facility] Diagnoses with type 2 diabetes mellitus in second trimester High-risk in second trimester High-risk in first trimester Procedures BIOPHYSICAL PROFILE [facility] BIOPHYSICAL PROFILE NON-STRESS TESTING Mey Almanzar MD [address] [place] [address] [address] Reason Comments Early Incision check Reason Comments Social Work Services Reason Onset Date Comments Refill Request 02/02/2024 Reason Comments Glucose Check Pt states she has oropeza pplies at [facility] she needs to pu and she was high on 02/02, has infection in C section incision. Reason Comments Routine Reason Onset Date Comments Refill Request 02/18/2024 Reason Comments Wound Care Reason Comments PACKING CHANGE Reason Comments Consult Reason Comments High Blood Sugar Reason Comments Derm Problem ? belly incision inf ection Reason Comments Sinus Problem sinus pressure, bila teral ear pain x bilateral x 5 days Reason Comments Appointment reminder call Reason Onset Date Comments Refill Request 10/23/2023 Care Team (unrecognized sect ion and content) Personnel Name: TANGELA JOHNSON Address: Address: [address] [place] [phone]- [place] Care Team Personnel Name: TANGELA JOHNSON Position: P4 Advanced Practice Nurse Med Service: Active Provider Member Role: Primary Care Physician Address: Address: [address] [place] [id number]- [place] Name: TANGELA JOHNSON Position: P4 Advanced Practice Nurse Med Service: Active Provider Member Role: Primary Care Physician Address: Address: [address] [facility] [place] [address]- Care Team Related Persons Name: JOSEMANUEL TRUONG INFORMATION SOURCE (unrecogn ized section and content) DATE CREATED AUTHOR 09/07/2023 [facility] ([place]) DATE CREATED AUTHOR AUTHOR'S ORGANIZ ATION 10/13/2023 [facility] DATE CREATED AUTHOR AUTHOR'S ORGANIZ ATION 01/04/2024 [facility] DATE CREATED AUTHOR AUTHOR'S ORGANIZ ATION 05/17/2024 [facility] FOR RECORDS PERTAINING TO PATIENTS WHO ARE OR HAVE BEEN ENROLLED IN A CHEMICAL DEPENDENCY/SUBSTANCEABUSE PROGRAM, SOME INFORMATION MAY BE OMITTED. This clinical summary was aggregated from multiple sources. Caution should be exercised in using it in the provision of clinical care. This summary normalizes information from multiple sources, and as a consequence, information in this document may materially change the coding, format and clinical context of patient data. In addition, data may be omitted in some cases. CLINICAL DECISIONS SHOULD BE BASED ON THE PRIMARY CLINICAL RECORDS. [facility]. provides no warranty or guarantee of the accuracy or completeness of information in this document.
[2024-07-23 11:05] VITALS: BP 121/80; PULSE 90; RESP 16; TEMP 36.5; O2SAT 98
== END 2024-07-23 11:06 | disposition home or self-care (01) ==
PROVIDERS: Emergency Provider Emergency Medicine; PCP Nurse Practitioner Primary Care; Visit Provider Emergency Medicine
DX: R21 Rash and other nonspecific skin eruption (principal); Z79.4 Long term (current) use of insulin; E11.9 Type 2 diabetes mellitus without complications; Z59.00 Homelessness unspecified; I10 Essential (primary) hypertension; E07.9 Disorder of thyroid, unspecified; J45.909 Unspecified asthma, uncomplicated; Z79.890 Hormone replacement therapy; Z79.899 Other long term (current) drug therapy
CPT/HCPCS: 99282

== ENCOUNTER → 2025-02-07 | Outpatient (CLI) | payer MEDICAID, SELFPAY ==
[2025-02-07 12:47] LABS: Absolute Lymphocyte Count 3.78 X10^3/uL (0.83-4.51); Absolute Neutrophil Count 9.5 X10^3/uL (2.0-7.7); Basophil# 0.18 X10^3/uL; Basophil% 1.2 % (0-1); Eosinophils% 3.4 % (0-5); Hematocrit 38.2 % (37-47); Lymphocyte # 3.78 X10^3/ul (0.83-4.51); Lymphocyte % 25.4 % (19-41); Mean Corp Hgb Conc 31.4 g/dL (32-36); Mean Corpuscular Hgb 23.7 pg (27.0-32.0); Mean Corpuscular Volume 75.5 fL (81-99); Mean Platelet Vol. 11.3 fl (6.2-12.0); Monocyte# 0.77 X10^3/uL; Monocyte% 5.2 % (0-10); NRBC Flagged by Analyzer 0 % (0-5); Neutrophil # 9.47 X10^3/uL (2.7-7.7); Neutrophil % 63.5 % (47-70); Platelet Count 402 K/mm3 (150-450); RBC Distribution Width SD 43.4 fl (35.1-43.9); Red Blood Count 5.06 M/mm3 (4.2-5.4); White Blood Count 14.9 K/mm3 (4.4-11.0)
[2025-02-07 13:23] LABS: ALB/GLOB Ratio 1.2 RATIO (0.9-2.4); AST(SGOT) 37 U/L (<=31); Alanine Aminotransfer ALT/SGPT 33 U/L (<=34); Albumin, Serum 4.2 g/dL (3.5-5.0); Alkaline Phosphatase 61 U/L (35-104); Anion Gap 16 (5-15); BUN 14 mg/dL (4-19); BUN/Creat Ratio 17.1 RATIO (10-20); Calcium,Total 9.6 mg/dL (7.6-11.0); Carbon Dioxide 19.2 mmol/L (21.0-32.0); Chloride 97 mmol/L (98-108); Cholesterol 231 mg/dL (<=200); EST Glomerular Filtration Rate 103 (>60); Globulin 3.5 g/dL (2.2-4.2); Glucose 442 mg/dL (70-99); High Density Lipoprotein 35 mg/dL; Low Density Lipoprotein Calc. 131 mg/dL; Potassium 4.4 mmol/L (3.3-5.1); Protein, Total 7.6 g/dL (5.9-8.4); Sodium Level 133 mmol/L (133-145); Total Bilirubin 0.32 mg/dL (0.00-1.30); Triglycerides 324 mg/dL; Very Low Density Lipoprotein 65 mg/dL (5-40)
== END | disposition home or self-care (01) ==
LOC: VSLAB 11:52
DX: E11.9 Type 2 diabetes mellitus without complications (principal)
CPT/HCPCS: 36415; 80053; 80061; 82043; 84443; 85025

== ENCOUNTER → 2025-02-21 | Outpatient (CLI) | payer MEDICAID, SELFPAY ==
[2025-02-21 12:41] LABS: Absolute Lymphocyte Count 3.43 X10^3/uL (0.83-4.51); Absolute Neutrophil Count 8.8 X10^3/uL (2.0-7.7); Basophil# 0.15 X10^3/uL; Basophil% 1.1 % (0-1); Eosinophil# 0.35 X10^3/uL; Eosinophils% 2.6 % (0-5); Hematocrit 37.2 % (37-47); Hemoglobin 11.8 g/dL (12.0-15.0); Lymphocyte # 3.43 X10^3/ul (0.83-4.51); Lymphocyte % 25.4 % (19-41); Mean Corp Hgb Conc 31.7 g/dL (32-36); Mean Corpuscular Volume 75.6 fL (81-99); Mean Platelet Vol. 11.3 fl (6.2-12.0); Monocyte# 0.75 X10^3/uL; Monocyte% 5.5 % (0-10); NRBC Flagged by Analyzer 0 % (0-5); Neutrophil # 8.77 X10^3/uL (2.7-7.7); Neutrophil % 64.9 % (47-70); Platelet Count 401 K/mm3 (150-450); RBC Distribution Width CV 15.5 % (11.6-14.6); RBC Distribution Width SD 42.5 fl (35.1-43.9); Red Blood Count 4.92 M/mm3 (4.2-5.4); White Blood Count 13.5 K/mm3 (4.4-11.0)
[2025-02-21 13:05] LABS: Anion Gap 16 (5-15); BUN 9 mg/dL (4-19); BUN/Creat Ratio 13.7 RATIO (10-20); Calcium,Total 9.3 mg/dL (7.6-11.0); Chloride 98 mmol/L (98-108); Creatinine, Serum 0.69 mg/dL (0.70-1.20); EST Glomerular Filtration Rate 121 (>60); Glucose 380 mg/dL (70-99); Potassium 4.2 mmol/L (3.3-5.1); Sodium Level 134 mmol/L (133-145)
[2025-02-21 16:36] LABS: Amylase 20 U/L (28-100); Lipase 36 U/L (13-75)
== END | disposition home or self-care (01) ==
LOC: VSLAB 11:29
DX: E11.9 Type 2 diabetes mellitus without complications (principal)
CPT/HCPCS: 36415; 80048; 82150; 83690; 85025

== ENCOUNTER → 2025-02-23 | Outpatient (CLI) | payer MEDICAID, SELFPAY | END | disposition home or self-care (01) | LOC: LABSPEC 15:23 | DX: L03.316 Cellulitis of umbilicus (principal) | CPT/HCPCS: 87070; 87077; 87205 ==

== ENCOUNTER → 2025-03-03 | Outpatient (CLI) | payer MEDICAID, SELFPAY ==
[2025-03-03 13:06] LABS: Anion Gap 17 (5-15); BUN 15 mg/dL (4-19); BUN/Creat Ratio 17.9 RATIO (10-20); Calcium,Total 9.2 mg/dL (7.6-11.0); Carbon Dioxide 18.4 mmol/L (21.0-32.0); Chloride 94 mmol/L (98-108); Creatinine, Serum 0.82 mg/dL (0.70-1.20); EST Glomerular Filtration Rate 101 (>60); Glucose 450 mg/dL (70-99); Potassium 4.2 mmol/L (3.3-5.1); Sodium Level 130 mmol/L (133-145)
== END | disposition home or self-care (01) ==
DX: E11.9 Type 2 diabetes mellitus without complications (principal)
CPT/HCPCS: 36415; 80048

== ENCOUNTER → 2025-03-07 | Outpatient (CLI) | payer MEDICAID, SELFPAY ==
[2025-03-07 11:54] LABS: Bacteria 0 SEEN /hpf (None Seen); Mucous, Urine 0 SEEN /hpf (<or=2+)
[2025-03-07 12:42] LABS: Absolute Lymphocyte Count 4.16 X10^3/uL (0.83-4.51); Absolute Neutrophil Count 10.4 X10^3/uL (2.0-7.7); Basophil# 0.14 X10^3/uL; Basophil% 0.9 % (0-1); Eosinophils% 2.5 % (0-5); Hematocrit 36.9 % (37-47); Hemoglobin 11.6 g/dL (12.0-15.0); Lymphocyte # 4.16 X10^3/ul (0.83-4.51); Lymphocyte % 25.9 % (19-41); Mean Corp Hgb Conc 31.4 g/dL (32-36); Mean Corpuscular Hgb 24.1 pg (27.0-32.0); Mean Corpuscular Volume 76.6 fL (81-99); Mean Platelet Vol. 11.8 fl (6.2-12.0); Monocyte# 0.88 X10^3/uL; Monocyte% 5.5 % (0-10); NRBC Flagged by Analyzer 0 % (0-5); Neutrophil # 10.41 X10^3/uL (2.7-7.7); Neutrophil % 64.7 % (47-70); Platelet Count 364 K/mm3 (150-450); RBC Distribution Width CV 15.7 % (11.6-14.6); RBC Distribution Width SD 42.6 fl (35.1-43.9); Red Blood Count 4.82 M/mm3 (4.2-5.4); White Blood Count 16.1 K/mm3 (4.4-11.0)
[2025-03-07 13:28] LABS: Color, Urine Yellow (Yellow); Glucose, Dipstick 1000 mg/dl (Normal); Ketone-Dipstick Negative (Negative); Leukocyte Esterase-Dipstick Negative /ul (Negative); Nitrite-Dipstick Negative (Negative); Occult Blood-Urine 10 /ul (Negative); Protein-Dipstick 30 mg/dl (Negative); Specific Gravity, Urine 1.015 (1.002-1.030); Urine Bilirubin Dipstick Negative (Negative); Urine Clarity Clear (Clear); Urine Urobilinogen Normal (Normal)
[2025-03-07 13:42] LABS: ALB/GLOB Ratio 1.3 RATIO (0.9-2.4); AST(SGOT) 45 U/L (<=31); Alanine Aminotransfer ALT/SGPT 40 U/L (<=34); Albumin, Serum 4.1 g/dL (3.5-5.0); Alkaline Phosphatase 63 U/L (35-104); Anion Gap 16 (5-15); BUN 11 mg/dL (4-19); BUN/Creat Ratio 16.1 RATIO (10-20); Calcium,Total 9.3 mg/dL (7.6-11.0); Carbon Dioxide 20.8 mmol/L (21.0-32.0); Chloride 97 mmol/L (98-108); EST Glomerular Filtration Rate 120 (>60); Globulin 3.2 g/dL (2.2-4.2); Glucose 370 mg/dL (70-99); Potassium 4.2 mmol/L (3.3-5.1); Protein, Total 7.3 g/dL (5.9-8.4); Sodium Level 134 mmol/L (133-145); Total Bilirubin 0.38 mg/dL (0.00-1.30)
[2025-03-07 14:24] LABS: Squamous Epithelial Cells - UA 5-10 SEEN /hpf (5-10)
[2025-03-07 14:25] LABS: Red Blood Cells-Urine 5-10 SEEN /hpf (0-5); White Blood Cells 0-5 SEEN /hpf (0-5)
[2025-03-07 16:21] LABS: Ferritin 13 ng/mL (22-378); Iron 35 ug/dL (50-170); Iron Binding Capacity,Total 444 ug/dL (250-450); Iron Binding Capacity,Unsat 409 ug/dL (228-428)
== END | disposition home or self-care (01) ==
LOC: VSLAB 11:53
DX: D64.9 Anemia, unspecified (principal); E11.9 Type 2 diabetes mellitus without complications
CPT/HCPCS: 36415; 80053; 81001; 82728; 83540; 83550; 85025

== ENCOUNTER 2025-03-21 14:11 | Emergency (ER) | payer MEDICAID, SELFPAY ==
[2025-03-21 14:12] VITALS: BP 115/77; PULSE 100; RESP 18; TEMP 36.9; O2SAT 99; BMI 50.5
--- NOTE | 2025-03-21 15:11 | EDS_ITS ---
HPI History of Present Illness Chief Complaint: Wound Check Detail of Chief Complaint: wound needs sutured and high blood sugar Informant: patient Onset/Context/Timing Onset: Weeks (Blood sugars been high for the past 2 weeks.) Context: Gradual Onset Timing: Continuous Quality: Blood sugars greater than 300 and wound did not heal secondary to C- section Location: scar and endocrine Current Severity: Moderate Maximum Severity: Moderate Worsened by: Patient states she recently had Trulicity added to her insulin regimen Relieved by: Nothing Associated Symptoms Associated Symptoms: Polydipsia and polyuria Narrative Narrative: patient is a 29-year-old woman. She states she was reseen by her OB, Dr. Sheela Mccullough, who recommended she come to the ER to have her wound sutured. She had apparent dehiscence of the from a year ago. She denies fever, chills night sweats. She is a diabetic and poorly controlled. She is on insulin. She denies drainage from the site. She states she went to the wound center and they stated they could not help her since it is not infected. Review of her records from the wound center indicates she has not been to the wound center in the past couple of years. She informing for walking out that she has got some numbness in her leg medial anterior left leg specifically. She denies history of PE or DVT. She denies discoloration, she believes it swollen. She denies pain. She has no risk factors for VTE. Prior similar symptoms: Yes Recent Illness/Hospitalization: Yes (States she was seen 2 weeks ago at the [facility] Medical History Asthma Thyroid disease Acute lateral meniscus tear of right knee Cholecystectomy planned Tonsillectomy planned High blood pressure Diabetes Home Medications ?Medication ?Instructions ?Recorded ?Last Taken ?Type insulin glargine 100 unit/mL (3 24 unit subcut QHS Unknown History mL) subcutaneous pen (Lantus Solostar U-100 Insulin) acyclovir 400 mg tablet 400 mg PO BID 02/22/24 Unkno wn History blood sugar diagnostic (OneTouch 02/22/24 Unknown His tory Verio test strips) blood-glucose sensor (FreeStyle 02/22/24 Unknown Hist ory Yecenia 3 Sensor device) levothyroxine 175 mcg tablet 175 mcg PO DAILY 02/22/24 Unknown History clonidine HCl 0.1 mg tablet 0.1 mg PO BID PRN PRN anxi ety 03/21/25 Unknown History clonidine HCl 0.1 mg 0.1 mg PO DAILY 03/21/25 Unk nown History tablet,extended release,12 hr dulaglutide 0.75 mg/0.5 mL 0.75 mg subcut QWEEK Unknown History subcutaneous pen injector (Trulicity) ferrous fumarate 324 mg (106 mg 324 mg PO DAILY Unknown History iron) tablet (Ferrocite) hydroxyzine HCl 25 mg tablet 25 mg PO TID PRN PRN anxi ety 03/21/25 Unknown History insulin regular human 100 unit/mL 5 unit (0.05 mL) sub cut UD #3 mL 03/21/25 Unknown Rx injection solution (Humulin R Regular U-100 Insulin) lisinopril 2.5 mg tablet 2.5 mg PO DAILY 03/21/25 Unk nown History vits no.179-ferrous 1 tab PO DAILY 03/21/25 U nknown History fumarate 28 mg-folic acid 800 mcg tablet rosuvastatin 20 mg tablet 20 mg PO QHS 03/21/25 Unknow n History sertraline 50 mg tablet 75 mg PO DAILY 03/21/25 Unkn own History Allergy/AdvReac Type Severity Reaction Status Date / Time amoxicillin Allergy Mild Shortness Verified 03/21/25 14:12 of breath red dye Allergy Mild Hives Verified 03/21/25 14:12 wheat Allergy Mild Other Verified 03/21/25 14:12 Family History Other Arthritis CVA (cerebral vascular accident) Cancer Hypertension Myocardial infarction Surgical History H/O: Social History household members: significant other and children housing: homeless Smoking Status: Never smoker ROS ROS ED Constitutional Constitutional ED: Denies chills, fever(s), subjective, sweats or weight loss Eyes Eyes: Denies blurry vision or change in vision Cardiovascular Cardiovascular: Denies chest pain or palpitations Respiratory/Chest Respiratory/Chest: Denies cough, dyspnea or dyspnea on exertion Gastrointestinal Gastrointestinal: Denies abdominal pain, nausea or vomiting Genitourinary Genitourinary ED: Reports urinary frequency; Denies dysuria or hematuria Musculoskeletal Musculoskeletal: Denies arthralgias or myalgias Integumentary Denies rash Neurologic Neurologic: Denies headache(s) or paresthesias Psychiatric Psychiatric: Denies anxiety or depression Endocrine Endocrinology: Reports polydipsia and polyuria; Denies cold intolerance, heat intolerance or polyphagia Hematologic/Lymphatic Hematologic/Lymphatic: Reports systems reviewed and no addt'l complaints, except as documented EXAM Physical Exam Const Vital Signs: 03/21/25 14:12 03/21/25 17:47 Temperature 98.4 F 98.1 F Temperature Source Oral Pulse Rate 100 86 Respiratory Rate 18 18 Blood Pressure 115/77 119/86 H Blood Pressure Mean 89 97 Pulse Ox 99 99 Oxygen Delivery Method Room Air Positive well nourished and well developed Constitutional Narrative: BMI is 50.5. She appears in no distress. She appears to have sunburn of her face arms General Appearance ED: well developed and NAD; Negative for cyanotic, diaphoretic or pallor HEENT Reports dry mucous membranes HEENT Narrative: Head is atraumatic normocephalic. Ears normal. Nares patent. Posterior ph arynx is unremarkable. Mouth ED: Yes dry mucous membranes Mouth: dry mucous membranes Eyes PERRL General Eye ED: Negative for pale conjunctiva or scleral icterus Neck no lymphadenopathy, supple and no JVD Resp normal respiratory effort and clear to auscultation bilaterally Cardio regular rate, regular rhythm, S1 normal heart sound, S2 normal heart sound and no murmurs GI normal to inspection, nondistended, normoactive bowel sounds, non-tender, non- distended, hepatosplenomegaly and no masses GI Narrative: The center portion of her apparently dehisced. There is skin covering the defect. There is no erythema, warmth, induration or fluctuance. She does have evidence of a yeast infection involving her umbilicus. There is no evidence of incisional hernia. Back/Spine no CVA tenderness Extremity normal to inspection Extremity Narrative: There is no asymmetry, swelling, discoloration, leg vein distention, palpable cords or tenderness along the distribution of the deep venous system. Neuro oriented x3 and CN's II-XII intact bilaterally Sensorium / Orientation: alert Motor Exam: strength 5/5 throughout Psych mental status grossly normal Skin no rashes or lesions noted, no wounds and skin turgor normal Skin Narrative: Positive sunburn General Skin Exam: Negative for jaundice or pallor MDM MDM Lab Data Attestation: I reviewed the patient's lab results. Lab results narrative: Blood sugar is elevated 403. BMP was ordered to assess anion gap. Will treat her elevated blood sugar with insulin. Labs: Laboratory Results - last 24 hr 03/21/25 03/21/25 16:32 18:45 Sodium 134 Potassium 3.9 Chloride 99 Carbon Dioxide 22.8 Anion Gap 12 BUN 14 Creatinine 0.70 Estim Creat Clear Calc 151.47 Est GFR (MDRD) Non-Af 120 BUN/Creatinine Ratio 19.4 Glucose 381 H Calcium 9.4 POC Glucose 403 H Repeat BGT after 10 units of insulin was 304. An additional 10 units was ordered. Treatment and Re-Evaluation :: Patient was counseled to contact her provider at [facility]. Recommended 5 units of insulin for blood sugar greater than 300. Discharge Plan Triage Chief Complaint: Wound Check ED Provider: Pérez Garcias Dx/Rx/DC Orders Clinical Impression: Type 1 diabetes mellitus with hyperglycemia, Anemia, Encounter for evaluation of wound Instructions: ED Diabetic Hyperglycemia Prescriptions: New Humulin R Regular U-100 Insuln 100 unit/mL solution 5 unit subcut UD Qty: 3 0RF Rx Instructions: 5 units for blood sugar greater than 300 and recheck blood sugar in 2 hours No Action insulin glargine [Lantus Solostar U-100 Insulin] 100 unit/mL (3 mL) insulin pen 24 unit subcut QHS clonidine HCl 0.1 mg tablet 0.1 mg PO BID PRN PRN (Reason: anxiety) clonidine HCl 0.1 mg tablet extended release 12 hr 0.1 mg PO DAILY hydroxyzine HCl 25 mg tablet 25 mg PO TID PRN PRN (Reason: anxiety) sertraline 50 mg tablet 75 mg PO DAILY lisinopril 2.5 mg tablet 2.5 mg PO DAILY rosuvastatin 20 mg tablet 20 mg PO QHS ferrous fumarate [Ferrocite] 324 mg (106 mg iron) tablet 324 mg PO DAILY Trulicity 0.75 mg/0.5 mL pen injector 0.75 mg subcut QWEEK vit no.[id number] 28 mg iron- 800 mcg tablet 1 tab PO DAILY levothyroxine 175 mcg tablet 175 mcg PO DAILY (DME) OneTouch Verio test strips Strip 1 strip MISCELLANEOUS TID acyclovir 400 mg tablet 400 mg PO BID (DME) FreeStyle Yecenia 3 Sensor Device MISCELLANEOUS UD Primary Care Provider: Mick Tobias Referrals: Mick Tobias, COAL PULVERIZING OPERATOR-C [Primary Care Provider] - Activity Restrictions/Additional Instructions: You need to call your COAL PULVERIZING OPERATOR at [facility] to discuss a new insulin regimen for you Recommend administering 5 units of regular insulin if your blood sugars greater than 300. Print Language: Malawian Disposition Disposition: Home, Self Care
[2025-03-21 16:49] LABS: Bedside Glucose 403 mg/dL (74-106)
[2025-03-21] MEDS: Insulin Lispro 100 UNIT/ML INSULN.PEN 10 UNIT SC (17:27)
[2025-03-21 17:47] VITALS: BP 119/86; PULSE 86; RESP 18; TEMP 36.7; O2SAT 99
[2025-03-21 19:17] LABS: Anion Gap 12 (5-15); BUN 14 mg/dL (4-19); BUN/Creat Ratio 19.4 RATIO (10-20); Calcium,Total 9.4 mg/dL (7.6-11.0); Carbon Dioxide 22.8 mmol/L (21.0-32.0); Chloride 99 mmol/L (98-108); EST Glomerular Filtration Rate 120 (>60); Estimated Creatinine Clearance 151.47 ml/min (50-250); Glucose 381 mg/dL (70-99); Potassium 3.9 mmol/L (3.3-5.1); Sodium Level 134 mmol/L (133-145)
[2025-03-21 20:34] LABS: Bedside Glucose 314 mg/dL (74-106)
== END 2025-03-21 20:29 | disposition home or self-care (01) ==
PROVIDERS: Emergency Provider Emergency Medicine; Visit Provider Emergency Medicine
DX: E10.65 Type 1 diabetes mellitus with hyperglycemia (principal); Z79.4 Long term (current) use of insulin; O90.0 Disruption of cesarean delivery wound; Y83.8 Other surgical procedures as the cause of abnormal reaction of the patient, or of later complication, without mention of misadventure at the time of the procedure; D64.9 Anemia, unspecified; Z79.85 Long-term (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 of injectable non-insulin antidiabetic drugs; Z79.899 Other long term (current) drug therapy
CPT/HCPCS: 80048; 82962; 99283

== ENCOUNTER → 2025-05-30 | Outpatient (CLI) | payer MEDICAID, SELFPAY ==
[2025-05-30 12:32] LABS: Hematocrit 41.3 % (37-47); Hemoglobin 13.7 g/dL (12.0-15.0); Immature Granulocytes Count 0.050 X10^3/uL (0.0-0.0); Mean Corp Hgb Conc 33.2 g/dL (32-36); Mean Corpuscular Volume 81.3 fL (81-99); Mean Platelet Vol. 12.2 fl (6.2-12.0); NRBC Flagged by Analyzer 0 % (0-5); Platelet Count 333 K/mm3 (150-450); RBC Distribution Width CV 13.9 % (11.6-14.6); RBC Distribution Width SD 40.8 fl (35.1-43.9); Red Blood Count 5.08 M/mm3 (4.2-5.4); White Blood Count 12.7 K/mm3 (4.4-11.0)
[2025-05-30 12:47] LABS: Creatinine, Urine (random) 49.70 mg/dL (28.00-217.00); Microalbumin,Random Urine 202.0 mg/L (<20 mg/L)
[2025-05-30 13:38] LABS: AST(SGOT) 32 U/L (<=31); Alanine Aminotransfer ALT/SGPT 32 U/L (<=34); Albumin, Serum 4.0 g/dL (3.5-5.0); Alkaline Phosphatase 49 U/L (35-104); Anion Gap 17 (5-15); BUN 10 mg/dL (4-19); BUN/Creat Ratio 16.9 RATIO (10-20); Calcium,Total 9.7 mg/dL (7.6-11.0); Carbon Dioxide 17.3 mmol/L (21.0-32.0); Chloride 101 mmol/L (98-108); Cholesterol 112 mg/dL (<=200); Globulin 3.3 g/dL (2.2-4.2); Glucose 383 mg/dL (70-99); Low Density Lipoprotein Calc. 27 mg/dL; Potassium 4.1 mmol/L (3.3-5.1); Triglycerides 265 mg/dL; Very Low Density Lipoprotein 53 mg/dL (5-40); cholesterol:hdl ratio screen 3.50
== END | disposition home or self-care (01) ==
DX: E11.9 Type 2 diabetes mellitus without complications (principal); E78.5 Hyperlipidemia, unspecified
CPT/HCPCS: 36415; 80053; 80061; 82043; 82570; 83036; 84443; 85025

== ENCOUNTER → 2025-09-22 | Outpatient (CLI) | payer MEDICAID, SELFPAY ==
[2025-09-22 17:43] LABS: Color, Urine Straw (Yellow); Glucose, Dipstick 1000 mg/dl (Normal); Ketone-Dipstick Negative (Negative); Leukocyte Esterase-Dipstick 500 /ul (Negative); Nitrite-Dipstick Negative (Negative); Occult Blood-Urine 25 /ul (Negative); Protein-Dipstick 30 mg/dl (Negative); Specific Gravity, Urine 1.010 (1.002-1.030); Urine Bilirubin Dipstick Negative (Negative)
== END | disposition home or self-care (01) ==
LOC: LABSPEC 16:50
DX: E11.9 Type 2 diabetes mellitus without complications (principal); R30.0 Dysuria
CPT/HCPCS: 81002; 87086; 87088